=== PATIENT | female | born 1950 | race Caucasian/White ===

== ENCOUNTER 2022-10-31 09:25 | Outpatient (OUT) | payer MEDICARE, BC, SELFPAY ==
--- NOTE | 2022-10-31 09:53 | PM.CN ---
Consult Note: HPI Data of Consult Patient: known to practice within the last 3 years Consult date: 10/31/22 Requesting Physician: SHANE FINNEY NP Primary Care Provider: Familia Stanley MD Consult Narrative Reason for consult: right knee Narrative: She is here for f/u of gel one injection to right knee done 10/15/22. She had 70% relief of pain with increased fx continued through today. She is pleased dwith the significant results. No other concerns. She uses OTC gel to knees with relief also. No new sensorimotor sx or new bowel or bladder issues. cc:: CC: SHANE FINNEY NP Review of Systems ROS Status of ROS 10 or more systems reviewed and unremarkable except as noted in history and below Musculoskeletal Reports: extremity pain Exam Constitutional Documenting provider has reviewed patient's vital signs: yes Common normals: no apparent distress, average body habitus, oriented x3, no limitations, healthy appearing, alert and well nourished General appearance: cooperative and well developed Orientation/consciousness: Yes awake, Yes oriented to person, Yes oriented to place and Yes oriented to time HENMT Common normals: normocephalic, nasal mucous membranes and turbinates normal and moist oral mucous membranes Respiratory Common normals: normal respiratory effort, no retractions and no use of accessory muscles Effort & inspection: able to speak in complete sentences and symmetric chest movement Extremity Common normals: normal capillary refill and no pedal edema Right lower extremity: knee joint Right knee: inspection (swelling to right knee, pain crepitus with ROM . Muscle strength 5/5 bilat ) Assessment and Plan Assessment and Plan (1) Knee osteoarthritis: Plan F/U PRN, voltaren gel OTC as directed
== END 2022-10-31 09:26 ==
LOC: PM 09:26
PROVIDERS: PCP Family Medicine; Visit Provider Nurse Practitioner
DX: M17.11 Unilateral primary osteoarthritis, right knee (principal)
CPT/HCPCS: G0463

== ENCOUNTER 2022-12-02 09:30 | Outpatient (OUT) | payer MEDICARE, BC, SELFPAY ==
[2022-12-02 10:39] LABS: Estimated Average Glucose 108 mg/dL; Glycohemoglobin A1C 5.4 % (4.5-6.2)
[2022-12-02 11:16] LABS: Free T3 2.72 pg/mL (2.18-3.98); Thyroid Stimulating Hormone 1.175 uIU/mL (0.358-3.740)
== END 2022-12-02 09:31 | disposition home or self-care (01) ==
LOC: LAB 09:33
PROVIDERS: PCP Family Medicine; Visit Provider Family Medicine
DX: R53.83 Other fatigue (principal)
CPT/HCPCS: 36415; 83036; 84436; 84443; 84481

== ENCOUNTER 2022-12-10 14:51 | Outpatient (OUT) | payer MEDICARE, BC, SELFPAY ==
--- NOTE | 2022-10-28 11:44 | XR_ITS ---
The [address] [address] Patient Name: HECTOR CHAVEZ MRN: [id number] date: 1950 Sex: F Assigned Patient Location: [facility] Current Patient Location: [facility] Accession/Order Number: [id number] Exam Date: 10/28/2022 11:50 Report Date: 10/28/2022 15:45 At the request of: ZENY SIMS Procedure: XR thoracic spine 2V EXAMINATION: XR thoracic spine 2V HISTORY: Dorsalgia M54.9 ; chronic thoracic back pain; no known injury COMPARISON: No relevant comparison available. FINDINGS: BONES: No significant spondylosis, scoliosis, fracture, or visible bony lesion. DISC SPACES: Multilevel mild degenerative disc disease and anterior endplate osteophytes. PARASPINOUS: Negative. No paraspinous abnormality is seen. OTHER: Negative. IMPRESSION: 1. Multilevel mild degenerative changes of the thoracic spine. 2. No appreciable acute or suspicious abnormality. Electronically authenticated by: NEPTALI GOODE Date: 10/28/2022 15:45
== END 2022-12-10 14:52 | disposition home or self-care (01) ==
LOC: RAD 14:51
PROVIDERS: PCP Family Medicine; Visit Provider Family Medicine
DX: M54.9 Dorsalgia, unspecified (principal)
CPT/HCPCS: 72070

== ENCOUNTER 2023-01-28 11:21 | Outpatient (OUT) | payer MEDICARE, BC, SELFPAY ==
--- NOTE | 2023-01-28 | XR_ITS ---
The [address] [address] Patient Name: HECTOR CHAVEZ MRN: [id number] date: 1950 Sex: F Assigned Patient Location: [facility] Current Patient Location: [facility] Accession/Order Number: [id number] Exam Date: 01/28/2023 14:14 Report Date: 01/28/2023 14:52 At the request of: CRISTIAN ROBERTO Procedure: XR foot LT min 3V PROCEDURE: XR foot LT min 3V DATE: 01/28/2023 1:14 PM CDT COMPARISONS: None CLINICAL INDICATION: LEFT FOOT PAIN FINDINGS: There is no evidence of fractures or other acute osseous abnormalities. There is deformity of the proximal third of the fifth metatarsal likely related to old healed fracture. There is mild first metatarsal phalangeal degenerative change. There is mild midfoot degenerative changes. There is moderate-sized spur off the posterior inferior os calcis. There is moderate size spurring off the posterior os calcis at the attachment of the Achilles. Surgical clips overlie the anterior and medial ankle. XR/XR foot LT min 3V IMPRESSION: Findings as discussed above. Spurring off of the os calcis. No acute osseous abnormalities identified. Electronically authenticated by: MANINDER MARIA Date: 01/28/2023 14:52
== END 2023-01-28 11:22 | disposition home or self-care (01) ==
LOC: RAD 11:24
PROVIDERS: PCP Family Medicine; Visit Provider Physician Assistant
DX: M77.41 Metatarsalgia, right foot (principal)
CPT/HCPCS: 73630

== ENCOUNTER 2023-02-06 09:41 | Outpatient (OUT) | payer MEDICARE, BC, SELFPAY ==
--- NOTE | 2023-02-06 09:56 | PM.CN ---
Consult Note: HPI Data of Consult Patient: known to practice within the last 3 years Requesting Physician: Flori Ott NP Primary Care Provider: Familia Stanley MD Consult Narrative Reason for consult: f/u Narrative: Kay evans pleasant 72 year old female presents to office for evaluation of chronic left knee pain. Today rating pain 2/10 which increased with weight bearing and activity. Has previously benefitted to injections in right knee and would like to discuss this. cc:: CC: Flori Ott NP Review of Systems ROS Status of ROS 10 or more systems reviewed and unremarkable except as noted in history and below Musculoskeletal Reports: joint pain (bilateral knees) Meds Home Medications and Allergies Home Medications Medication Instructions Recorded Confirmed Type alendronate 70 mg tablet (Fosamax) 70 mg PO QWEEK 10/31/22 10/31/22 History amitriptyline 75 mg tablet 75 mg PO DAILY 10/31/22 10/31/22 History calcium carbonate 600 mg calcium 600 mg PO BID 10/31/22 10/31/22 History (1,500 mg) tablet (Calcium) diclofenac sodium 1 % topical gel 2 g topical BID PRN pain 10/31/22 10/31/22 History (Arthritis Pain (diclofenac)) lisinopril 5 mg tablet 5 mg PO DAILY 10/31/22 10/31/22 History metoprolol tartrate 50 mg tablet 50 mg PO BID 10/31/22 10/31/22 History multivitamin 1 tab PO DAILY 10/31/22 10/31/22 History simvastatin 20 mg tablet 20 mg PO DAILY 10/31/22 10/31/22 History spironolactone 25 mg tablet 25 mg PO DAILY 10/31/22 10/31/22 History Allergies Allergy/AdvReac Type Severity Reaction Status Date / Time No Known Drug Allergies Allergy Verified 10/31/22 13:21 Exam Constitutional Documenting provider has reviewed patient's vital signs: yes Common normals: no apparent distress, oriented x3, healthy appearing, alert and well nourished General appearance: cooperative HENMT Common normals: normocephalic, hearing grossly normal bilaterally and moist oral mucous membranes Head and scalp: normocephalic Eye Common normals: PERRL Pupil: PERRL Neck & C-Spine Common normals: full ROM General: normal visual inspection Chest Common normals: inspection of chest normal Respiratory Common normals: normal respiratory effort, no retractions and no use of accessory muscles Extremity Right lower extremity: knee joint Left lower extremity: knee joint Other: right and left knee enlarged diameter positive lateral stress testing and crepitus to bilateral knee pain worse on left knee than right no redness edema present Neuro Common normals: oriented x3, CN's II-XII intact bilaterally, moves all extremities, no focal motor deficits, no sensory deficits noted and deep tendon reflexes 2+ bilaterally Sensorium/orientation: alert Motor exam: strength 5/5 throughout and no movement abnormalities noted Psych Common normals: mental status grossly normal, thought process normal, cooperative, affect normal, speech normal and activity/motor behavior normal Speech: normal speech Thought process: normal thought process Results Additional Findings Additional findings: As part of providing excellent, safe, comprehensive care, the following was completed at our patient's visit 1. A medication reconciliation and review to ensure accurate knowledge of current/active medications, including asking our patients to inform us about any [id number] medications or herbal remedies/nutritional supplements/alternative remedies. 2. A review to specifically ensure our patients have had annual screening for: elevated body mass index (BMI), tobacco use, screening for depression, and screening for unhealthy alcohol use. When screening is concerning, patients are provided with education and the specific recommendation to discuss the concerning health issue and treatment options with their primary care provider. Assessment and Plan Assessment and Plan (1) Knee osteoarthritis: Assessment and Plan: We discussed the risks and benefits of the procedure with the patient, and we are NOT planning on using sedation as outlined in the guidelines from Medicare unless there is a documented reason that sedation would be strongly recommended.?? The procedure will be completed with fluoroscopic guidance.? (2) Left knee pain: Plan xray of left knee reveals degenerative changes gel 1 injection to left knee under fluoroscopy continue topical diclofenac to bilateral knees continue OTC acetaminophen continue HEP and stretching f/u after injection
== END 2023-02-06 09:42 | disposition home or self-care (01) ==
LOC: PM 09:42
PROVIDERS: PCP Family Medicine; Visit Provider Nurse Practitioner
DX: M25.562 Pain in left knee (principal); M17.9 Osteoarthritis of knee, unspecified
CPT/HCPCS: 73564; G0463

== ENCOUNTER 2023-02-06 10:18 | Outpatient (OUT) | payer MEDICARE, BC, SELFPAY ==
--- NOTE | 2023-02-06 10:28 | XR_ITS ---
The [address] [address] Patient Name: HECTOR CHAVEZ MRN: [id number] date: 1950 Sex: F Assigned Patient Location: [facility] Current Patient Location: [facility] Accession/Order Number: [id number] Exam Date: 02/06/2023 10:38 Report Date: 02/06/2023 11:31 At the request of: COY KNOTT Procedure: XR knee LT 4V EXAM: XR knee LT 4V HISTORY: Left knee pain COMPARISON: None. TECHNIQUE: 4 views FINDINGS: No acute fracture or dislocation. Mild degenerative changes of the knee joint. Mild soft tissue swelling. XR/XR knee LT 4V IMPRESSION: Mild degenerative changes as above. Electronically authenticated by: ISAI SUAREZ Date: 02/06/2023 11:31
== END 2023-02-06 10:19 | disposition home or self-care (01) ==
LOC: RAD 10:20
PROVIDERS: PCP Family Medicine; Visit Provider Nurse Practitioner
DX: M25.562 Pain in left knee (principal)
CPT/HCPCS: 73564

== ENCOUNTER 2023-02-11 13:35 | Outpatient (OUT) | payer MEDICARE, BC, SELFPAY ==
--- NOTE | 2023-02-11 | XR_ITS ---
The [address] [address] Patient Name: HECTOR CHAVEZ MRN: [id number] date: 1950 Sex: F Assigned Patient Location: [facility] Current Patient Location: Accession/Order Number: [id number] Exam Date: 02/11/2023 13:50 Report Date: 02/12/2023 08:30 At the request of: CRISTIAN ROBERTO Procedure: XR foot LT min 3V PROCEDURE: XR foot LT min 3V HISTORY: LEFT FOOT PAIN ; plantar heel pain COMPARISON: XR foot left 01/28/2023 FINDINGS: BONES:Stable degenerative enthesopathic spurring of the calcaneus. Old, healed/healing fifth metatarsal fracture. SOFT TISSUES:Multiple skin josee anterior and medial to the ankle. EFFUSION:None visible. OTHER: Negative. XR/XR foot LT min 3V IMPRESSION: 1. Stable degenerative enthesopathic spurring of the calcaneus; no new or acute findings. 2. Partially healed base of fifth metatarsal fracture; unchanged. Electronically authenticated by: NEPTALI GOODE Date: 02/12/2023 08:30
== END 2023-02-11 13:36 | disposition home or self-care (01) ==
LOC: RAD 13:35
PROVIDERS: PCP Family Medicine; Visit Provider Physician Assistant
DX: M79.672 Pain in left foot (principal)
CPT/HCPCS: 73630

== ENCOUNTER 2023-02-21 10:27 | Outpatient (OUT) | payer MEDICARE, BC, SELFPAY ==
[2023-02-21 13:03] LABS: Alanine Aminotransferase 45 U/L (14-59); Anion Gap 10.6; Aspartate Amino Transferase 34 U/L (15-37); BUN Creatinine Ratio 21.3; Calcium 9.7 mg/dL (8.5-10.1); Carbon Dioxide 31.8 mmol/L (21.0-32.0); Chloride 101 mmol/L (98-107); Estimated GFR (African America >60 (>=60); Estimated GFR (Non-African Ame >60 (>=60); Glucose 86 mg/dL (74-106); Potassium 4.4 mmol/L (3.5-5.1); Sodium 139 mmol/L (136-145); Triglycerides 69 mg/dL (<=150); VLDL CHOLESTEROL 13.8 mg/dL
[2023-02-21 13:04] LABS: Chol HDL Ratio 2.3; Cholesterol 155 mg/dL (<=200); HDL Cholesterol 68 mg/dL (40-60)
== END 2023-02-21 10:28 | disposition home or self-care (01) ==
LOC: LAB 10:30
PROVIDERS: PCP Family Medicine; Visit Provider Internal Medicine Cardiovascular Disease
DX: E78.5 Hyperlipidemia, unspecified (principal); I10 Essential (primary) hypertension; I47.1 Supraventricular tachycardia
CPT/HCPCS: 36415; 80048; 80061; 84450; 84460

== ENCOUNTER 2023-02-25 08:20 | Day surgery (SDC) | payer MEDICARE, BC, SELFPAY ==
[2023-02-25 08:38] VITALS: BP 132/79; PULSE 75; RESP 16; TEMP 35.9; O2SAT 98
[2023-02-25] MEDS: LIDOCAINE HCL 2% PF 100 MG/5 ML VIAL INJ (09:31)
[2023-02-25] MEDS: IOHEXOL 240 MG/ML - 10 ML VIAL INJ (09:31)
--- NOTE | 2023-02-25 10:03 | P.ON_ITS ---
Date of procedure: 02/25/23 Pre-op diagnosis: Left knee osteoarthritis Post-op diagnosis: same as pre-op Procedure: Procedure: Left knee joint injection using Gel One 3ml. Immediate complications none. Anesthesia: 2% lidocaine plain for skin wheal. After informed consent was obtained, patient brought to the OR placed in the supine position. Skin overlying the area was prepped and draped using Betadine. 25-gauge 1/2 inch needle was used for skin wheal over the medial aspect of the r ight knee joint identified under fluoroscopy. Omnipaque dye was used to confirm needle tip placement within the knee joint space 0.5 mL use of the injection. Subsequently 3ml of Gel One was injected into the space. No indication of intravascular or intraneuronal needle tip placement or injection was noted post procedure. The needle was removed, patient transferred to Recovery room in stable condition to discharged home after meeting criteria. Anesthesia: Local Surgeon: Vannesa Cummins Condition: stable
[2023-02-25 15:02] VITALS: BP 155/70; BP 168/72; PULSE 70; PULSE 72; RESP 16; RESP 18; O2SAT 92; O2SAT 97
== END 2023-02-25 09:40 | disposition home or self-care (01) ==
LOC: SURGOUT 08:22
PROVIDERS: PCP Family Medicine; Visit Provider Anesthesiology Pain Medicine
DX: M17.12 Unilateral primary osteoarthritis, left knee (principal)
CPT/HCPCS: 20610; 77002; J7326; Q9966

== ENCOUNTER 2023-03-13 09:11 | Outpatient (OUT) | payer MEDICARE, BC, SELFPAY ==
--- NOTE | 2023-03-13 09:45 | PM.CN ---
Consult Note: HPI Data of Consult Patient: known to practice within the last 3 years Requesting Physician: Flori Ott NP Primary Care Provider: Familia Stanley MD Consult Narrative Reason for consult: injection f/u Narrative: Kay evans pleasant 73 year old female presents for evaluation and management of chronic knee pain. Recently underwent a gel 1 injection to left knee with 75% pain relief ongoing, has noticed right knee pain is flaring up today 0/10 but often 5-6/10 with activity. Patient had a gel-1 injection to right knee in september. Would like to discuss repeating this injection as she does not want to have surgery or be evaluated by an orientation & mobility specialist at this time. cc:: CC: Flori Ott NP Review of Systems ROS Status of ROS 10 or more systems reviewed and unremarkable except as noted in history and below Musculoskeletal Reports: joint pain Meds Home Medications and Allergies Home Medications Medication Instructions Recorded Confirmed Type alendronate 70 mg tablet (Fosamax) 70 mg PO QWEEK 10/31/22 02/25/23 History amitriptyline 75 mg tablet 75 mg PO DAILY 10/31/22 02/25/23 History calcium carbonate 600 mg calcium 600 mg PO BID 10/31/22 02/25/23 History (1,500 mg) tablet (Calcium) diclofenac sodium 1 % topical gel 2 g topical BID PRN pain 10/31/22 02/25/23 History (Arthritis Pain (diclofenac)) lisinopril 5 mg tablet 5 mg PO DAILY 10/31/22 02/25/23 History metoprolol tartrate 50 mg tablet 50 mg PO BID 10/31/22 02/25/23 History multivitamin 1 tab PO DAILY 10/31/22 02/25/23 History simvastatin 20 mg tablet 20 mg PO DAILY 10/31/22 02/25/23 History spironolactone 25 mg tablet 25 mg PO DAILY 10/31/22 02/25/23 History Allergies Allergy/AdvReac Type Severity Reaction Status Date / Time No Known Drug Allergies Allergy Verified 02/25/23 08:37 Exam Constitutional Documenting provider has reviewed patient's vital signs: yes Common normals: no apparent distress, oriented x3, healthy appearing, alert and well nourished General appearance: cooperative HENMT Common normals: normocephalic, hearing grossly normal bilaterally and moist oral mucous membranes Head and scalp: normocephalic Eye Common normals: PERRL Pupil: PERRL Neck & C-Spine Common normals: full ROM General: normal visual inspection Chest Common normals: inspection of chest normal Respiratory Common normals: normal respiratory effort, no retractions and no use of accessory muscles Extremity Right lower extremity: knee joint Left lower extremity: knee joint Other: right and left knee enlarged diameter positive lateral stress testing and crepitus to bilateral knee no redness edema present Neuro Common normals: oriented x3, CN's II-XII intact bilaterally, moves all extremities, no focal motor deficits, no sensory deficits noted and deep tendon reflexes 2+ bilaterally Sensorium/orientation: alert Motor exam: strength 5/5 throughout and no movement abnormalities noted Psych Common normals: mental status grossly normal, thought process normal, cooperative, affect normal, speech normal and activity/motor behavior normal Speech: normal speech Thought process: normal thought process Results Additional Findings Additional findings: I have checked an [place] report on this patient today and there are no aberrancies noted in the prescribing history.?? A drug screen was completed and reviewed within the last year, and if there has not been a drug screen completed we ordered one today to monitor higher risk, state monitored pain medication use. As part of providing excellent, safe, comprehensive care, the following was completed at our patient's visit: 1. A medication reconciliation and review to ensure accurate knowledge of current/active medications, including asking our patients to inform us about any [id number] medications or herbal remedies/nutritional supplements/alternative remedies. 2. A review to specifically ensure our patients have had annual screening for: elevated body mass index (BMI), tobacco use, screening for depression, and screening for unhealthy alcohol use. When screening is concerning, patients are provided with education and the specific recommendation to discuss the concerning health issue and treatment options with their primary care provider. Assessment and Plan Assessment and Plan (1) Knee osteoarthritis: (2) Right knee pain: Plan repeat gel 1 to right knee, has provided great pain relief and patient wishes to avoid surgery f/u after injection
== END 2023-03-13 09:12 | disposition home or self-care (01) ==
LOC: PM 09:30
PROVIDERS: PCP Family Medicine; Visit Provider Nurse Practitioner
DX: M17.11 Unilateral primary osteoarthritis, right knee (principal); M25.561 Pain in right knee
CPT/HCPCS: G0463

== ENCOUNTER 2023-04-29 06:50 | Day surgery (SDC) | payer MEDICARE, BC, SELFPAY ==
[2023-04-29 07:20] VITALS: BP 172/93; PULSE 74; RESP 16; TEMP 36.3; O2SAT 100
[2023-04-29 08:08] VITALS: BP 157/75; BP 159/72; PULSE 72; PULSE 76; RESP 18; O2SAT 97
[2023-04-29] MEDS: IOHEXOL 240 MG/ML - 10 ML VIAL 12 MG INJ ×2 (08:17→08:48)
[2023-04-29] MEDS: LIDOCAINE HCL 2% PF 100 MG/5 ML VIAL 3 ML INJ (08:17)
[2023-04-29 08:44] VITALS: BP 162/73; PULSE 70; O2SAT 98
[2023-04-29] MEDS: HYALURONATE SODIUM, STABILIZED 60 MG/3 ML SYRINGE IU (08:46)
[2023-04-29 08:47] VITALS: BP 157/68; PULSE 70; O2SAT 95
[2023-04-29] MEDS: LIDOCAINE HCL 2% PF 100 MG/5 ML VIAL 2 ML INJ (08:49)
--- NOTE | 2023-04-29 15:59 | W.PM.PROCNOT ---
Date of procedure: 04/29/23 Pre-op diagnosis: Right knee osteoarthritis Post-op diagnosis: same as pre-op Procedure: Procedure: knee joint injection using Durolane 3ml. Immediate complications include initial order for gel-one to be injected. 50% of the solution was injected before failure of the syringe and procedure then completed using durolane upon availability from the pharmacy. Anesthesia: 2% lidocaine plain for skin wheal. After informed consent was obtained and patient placed in the supine position. Skin overlying the area was prepped and draped using Betadine. 25-gauge 1/2 inch needle was used for skin wheal over the medial aspect of the knee joint identified under fluoroscopy. Omnipaque dye was used to confirm needle tip placement within the knee joint space 0.5 mL use of the injection. Subsequently 3ml of durolane was injected into the space. No indication of intravascular or intraneuronal needle tip placement or injection was noted post procedure. The needle was removed, patient transferred to Recovery room in stable condition to discharged home after meeting criteria. Anesthesia: Local Surgeon: Vannesa Cummins Condition: stable
== END 2023-04-29 08:51 | disposition home or self-care (01) ==
PROVIDERS: PCP Family Medicine; Visit Provider Anesthesiology Pain Medicine
DX: M17.11 Unilateral primary osteoarthritis, right knee (principal)
CPT/HCPCS: 20610; 77002; J7318; J7326; Q9966

== ENCOUNTER 2023-05-22 09:20 | Outpatient (OUT) | payer MEDICARE, BC, SELFPAY ==
--- OUTSIDE RECORDS SUMMARY | 2023-05-22 09:24 | XMS_ITS | CCD ---
Author Name Unknown Address [address] [place] [address] Organization [facility] Care Team Providers Care Refresh Technician Name Role Phone GRZEGORZJENNIFER Unavailable Unavailab ZENY Guzmán Unavailable Unavailable Zeny Stanley Unavailable Unavailable Unavailable Zeny Stanley Primary Care Physician Dr. Bradly Tanner Referring Unavaila ezio Tanner, Dr. Abdullahi Attending Unavaila Zeny Agarwal Primary Care Unavailable SHARMIN ., SHANE Attending Unavailable HALALLI .SHANE Admitting Unavailable LIZETH ., DR MOURA Primary Care Unavailable LIZETH ., DR MOURA Primary Care Unavailable REMI ., NARWESLY Attending Toma vailable REMI ., JOSEFAATH Admitting Toma vailable MEME, DR ANANTH Danielson Consulting Unavailable RAY WEINSTEIN Attending Unavailable RAY WEINSTEIN Admitting Unavailable REQUEST, NONE LISTED Primary Care Unavaila RAY Sheriff Consulting Unavailable CRISTIAN ROBERTO Attending Unavailable RUPA, DR NEPTALI Eason Consulting Unavailable REQUEST, NONE LISTED Primary Care Unavaila ble CRISTIAN ROBERTO Admitting Unavailable CRISTIAN ROBERTO Consulting Unavailable CRISTIAN ROBERTO Attending Unavailable RUPA, DR NEPTALI Eason Consulting Unavailable REQUEST, NONE LISTED Primary Care Unavaila ble CRISTIAN ROBERTO Admitting Unavailable CRISTIAN ROBERTO Consulting Unavailable RAY WEINSTEIN Admitting Unavailable RAY WEINSTEIN Attending Unavailable REQUEST, NONE LISTED Primary Care Unavaila ezio VALENTINE, DR ANANTH Danielson Consulting Unavailable RAY WEINSTEIN Consulting Unavailable RAY WEINSTEIN Attending Unavailable RAY WEINSTEIN Admitting Unavailable REQUEST, NONE LISTED Primary Care Unavaila ble RUPA, DR NEPTALI Eason Consulting Unavailable RAY WEINSTEIN Consulting Unavailable CIRO, DR ABDULLAHI Consulting Unavailab le TRABOULSSI, DR ABDULLAHI Attending Unavailab le TRABOULSSI, DR ABDULLAHI Admitting Unavailab le REQUEST, DR NONE LISTED Primary Care Unavaila ble WEST, DR ANANTH Danielson Consulting Unavailable REQUEST, DR NONE LISTED Primary Care Unavaila ble PARDEEP, CRISTIAN Admitting Unavailable PARDEEP, CRISTIAN Attending Unavailable PARDEEP, CRISTIAN Consulting Unavailable PARDEEP, CRISTIAN Attending Unavailable YURIYEBRK, DR NEPTALI Eason Consulting Unavailable PARDEEP, CRISTIAN Admitting Unavailable REQUEST, NONE LISTED Primary Care Unavaila ble PARDEEP, CRISTIAN Consulting Unavailable LAKSHMIPATHY ., NARENDRANATH Admitting Toma vailable LAKSHMIPATHY ., NARENDRANATH Consulting Toma vailable LAKSHMIPATHY ., NARENDRANATH Attending Toma vailable MISC, DOCTOR Primary Care Unavailable Lizeth AUGUSTINE, Zeny Caballero Primary Care Provider [phone]( [phone] BRADLY TANNER Attending Unavailable ZENY STANLEY Primary Care Unavailable Huma Shannon Admitting Unavailable Huma Shannon Attending Unavailable Huma Shannon Referring Unavailable Federico FRANCIS Attending Unavailable Zeny Stanley Referring Unavailable Medications Current Medications Medication Drug Class(es) Dates Sig (Normalized) Sig (Original) alendronic acid 70 mg oral tablet (6 sources) Bisphosphonate Start: 06-16-2018 take 1 tablet by mouth every week Fosamax 70 mg oral tablet 70 mg = 1 tab(s), Oral, qWeek, Refills(s) 0, Prophylaxis Start Date: 06/16/18 Status: Ordered alendronate (Fos amax) 70 mg tablet Take 1 tablet (70 mg) by mouth every 7 days. 0 Active ALPRAZolam 0.25 mg oral tablet (5 sources) Benzodiazepine Start: 05-09-2023 take 1 tablet by mouth three times daily as needed for anxiety alprazolam 0.25 mg Tab 0.25 mg = 1 tab(s), Oral, TID, PRN as needed for anxiety, Refills(s) 0 Start Date: 05/09/23 Status: Ordered take 1 tablet by katja th three times daily as needed ALPRAZolam (Xanax) 0.25 mg tablet Take 1 tablet (0.25 mg) by mouth 3 times a day as needed. 0 Active amitriptyline hydrochloride 75 mg oral tablet (6 sources) Tricyclic Antidepressant Start: 06-17-2018 take 75 mg by mouth once daily at bedtime amitriptyline 75 mg, Oral, Once a day (at bedtime), Refills(s) 0, Anxiety Start Date: 06/17/18 Status: Ordered aspirin 81 mg delayed release oral tablet (2 sources) Platelet Aggregation Inhibitor, Nonsteroidal Anti-inflammatory Drug Start: 05-20-2023 take 1 tablet by mouth once daily aspirin 81 mg Oral EC Tab 81 mg = 1 tab(s), Oral, Daily, Refills(s) 0 Start Date: 05/20/23 Status: Ordered Start: 06-16-2018 take 81 mg by mouth once daily aspirin 81 mg, Oral, Daily, Refills(s) 0, Blood Thinner Start Date: 06/16/18 Status: Ordered Calcium (1 source) Phosphate Binder, Calcium Start: 06-16-2018 take 1250 mg by mouth once daily calcium calcium, 1,250 mg, Oral, Daily Start Date: 06/16/18 Status: Ordered calcium citrate 950 mg oral tablet (1 source) Start: 10-14-2019 take 1 mg by mouth twice daily calcium (as calcium citrate) 200 mg oral tablet mg tab(s), Oral, BID, Refills(s) 0 Start Date: 10/14/19 Status: Ordered Envive oral capsule (2 sources) Start: 07-24-2021 take 8 capsules by mouth once Envive oral capsule See Instructions, 8 cap(s), Refill(s) 0, samples given to patient (Rx), Per physician's instructions. Start Date: 07/24/21 Status: Ordered lisinopril 40 mg oral tablet (6 sources) Angiotensin Converting Enzyme Inhibitor Start: 05-09-2023 take 1 tablet by mouth once daily lisinopril 40 mg Tab 40 mg = 1 tab(s), Oral, Daily, Refills(s) 0 Start Date: 05/09/23 Status: Ordered Start: 11-16-2021 take 1 tablet by katja th once daily lisinopril 20 mg tablet Take 1 tablet (20 mg) by mouth once daily. 0 11/16/2021 Active Start: 06-17-2018 take 5 mg by mouth once daily lisinopril 5 mg, Oral, Daily, Refills(s) 0, High blood pressure Start Date: 06/17/18 Status: Ordered take 1 tablet by katja once daily Lisinopril 10 MG Oral Tablet TAKE 1 TABLET DAILY DIRECTED. Quantity: 0 Refills: 0 Ordered: 23-Feb-2021 DO Active MAGNESIUM GLUCONATE (1 source) Start: 10-14-2019 take 1 mg by mouth twice daily Mag-G mg, Oral, BID, Refills(s) 0 Start Date: 10/14/19 Status: Ordered magnesium oxide 400 mg oral tablet (5 sources) Start: 02-28-2023 take 2 tablets by mouth once daily magnesium oxide (Mag-Ox) 400 mg (241.3 mg magnesium) tablet Indications: Paroxysmal atrial tachycardia , Premature ventricular contractions Take 2 tablets (800 mg) by mouth once daily. 180 tablet 3 02/28/2023 Active End: 02-28-2023 take 2 tablets by mouth once daily magnesium oxide (Mag-Ox) 400 mg (241.3 mg magnesium) tablet Take 2 tablets (800 mg) by mouth once daily. 0 02/28/2023 Discontinued (Reorder) take 2 tablets by [facility] once daily Magnesium Oxide 400 MG Oral Tablet TAKE 2 TABLET Daily Quantity: 180 Refills: 3 Ordered: 01-Mar-2022 Ciro AUGUSTINE, Bradly Active metoprolol tartrate 50 mg oral tablet (8 sources) beta-Adrenergic Ismael Start: 05-09-2023 take 1 tablet by mouth twice daily Metoprolol tartrate 50 mg Tab 50 mg = 1 tab(s), Oral, BID, Refills(s) 0 Start Date: 05/09/23 Status: Ordered Start: 04-10-2021 take 2 tablets by [facility] once daily metoprolol succinate XL (Toprol-XL) 50 mg 24 hr tablet Take 2 tablets (100 mg) by mouth once daily. 0 04/10/2021 Active Start: 04-10-2021 take 2 tablets by [facility] once daily Metoprolol Succinate ER 50 MG Oral Tablet Extended Release 24 Hour take 2 tablets by mouth every day Quantity: 180 Refills: 3 Ordered: 10-Apr-2021 Ciro AUGUSTINE, Bradly Start : 10-Apr-2021 Active Start: 10-14-2019 take 1 mg by mouth once daily metoprolol 50 mg ER Tab mg tab(s), Oral, Daily, Refills(s) 0 Start Date: 10/14/19 Status: Ordered MiraLax 3350 Oral Pwdr for Recon 249 gram (2 sources) Start: 10-14-2019 MiraLax 3350 Oral Pwdr for Recon 249 gram 17 gram, Oral, Every other day, # 255 gram, Refills(s) 11, Pharmacy: [facility]/pharmacy #[id number], 165.1, cm, 10/14/19 13:03:00 EDT, Height/Length Measured, 83.7, kg, 10/14/19 13:03:00 EDT, Weight Measured Start Date: 10/14/19 Status: Ordered Multi Vitamin+ (2 sources) Start: 06-16-2018 take 1 tablet by mouth once daily Multi Vitamin+ 1 tab, Oral, Daily, Refill(s) 0, Prophylaxis Start Date: 06/16/18 Status: Ordered simvastatin 20 mg oral tablet (6 sources) HMG-CoA Reductase Inhibitor Start: 06-17-2018 take 20 mg by mouth once daily at bedtime simvastatin 20 mg, Oral, Once a day (at bedtime), Refills(s) 0, High cholesterol Start Date: 06/17/18 Status: Ordered spironolactone 25 mg oral tablet (6 sources) Aldosterone Antagonist Start: 05-09-2023 take 1 tablet by mouth once daily spironolactone 25 mg Tab 25 mg = 1 tab(s), Oral, Daily, Refills(s) 0 Start Date: 05/09/23 Status: Ordered Start: 02-28-2023 take 1 tablet by katja once daily spironolactone (Aldactone) 25 mg tablet Indications: Primary hypertension Take 1 tablet (25 mg) by mouth once daily. 90 tablet 3 02/28/2023 Active End: 02-28-2023 take 1 tablet by mouth once daily spironolactone (Aldactone) 25 mg tablet Take 1 tablet (25 mg) by mouth once daily. 0 02/28/2023 Discontinued (Reorder) Vitamin D (1 source) Start: 10-14-2019 Vitamin D Oral , Refills(s) 0 Start Date: 10/14/19 Status: Ordered Vitamin E (1 source) Start: 06-16-2018 vitamin E 100 International_Unit, Oral, Daily, Refills(s) 0, Prophylaxis Start Date: 06/16/18 Status: Ordered Problems Active Problems Problem Classification Problem Date Documented Da te Episodic/Chronic Cardiac dysrhythmias (14 sources) Ventricular premature beats; Translations: [Other premature beats] Onset: 2 02-28-2023 Chronic Cardiac dysrhythmias (8 sources) Palpitations; Translations: [Palpitations] Onset: 2 02-28-2023 Episodic Cataract (2 sources) Bilateral cataracts 10-14-2019 Chronic Disorders of lipid metabolism (12 sources) Hyperlipidemia; Translations: [Other and unspecified hyperlipidemia] Onset: 2 Chronic Essential hypertension (8 sources) Hypertensive disorder; Translations: [Unspecified essential hypertension] Onset: 3 10-14-2019 Chronic Fracture of lower limb (11 sources) Stress fracture, left foot, subsequent encounter for fracture with nonunion; Translations: [Displaced fracture of fifth metatarsal bone, left foot, subsequent encounter for fracture with routine healing] Onset: 2 Episodic Osteoarthritis (3 sources) Arthritis; Translations: [Unilateral primary osteoarthritis, right knee] Onset: 3 10-14-2019 Chronic Osteoporosis (1 source) Osteoporosis 05-09-2023 Chronic Other aftercare (1 source) Encounter for follow-up examination after completed treatment for conditions other than malignant neoplasm; Translations: [Encounter for follow-up examination after completed treatment for conditions other than malignant neoplasm] Onset: 8 Episodic Other gastrointestinal disorders (2 sources) Constipation 10-14-2019 Episodic Other nervous system disorders (1 source) Other chronic pain; Translations: [OTHER CHRONIC PAIN] Onset: 3 Chronic Other non-traumatic joint disorders (4 sources) Pain in right knee; Translations: [PAIN IN RIGHT KNEE] Onset: 3 Episodic Other nutritional; endocrine; and metabolic disorders (2 sources) Body mass index 30+ - obesity; Translations: [Body Mass Index 31.0-31.9, adult] 05-20-2023 Chronic Other nutritional; endocrine; and metabolic disorders (3 sources) Obesity; Translations: [Obesity, unspecified] 05-09-2023 Chronic Other nutritional; endocrine; and metabolic disorders (2 sources) Obese class I; Translations: [Obesity, unspecified] Onset: 3 02-28-2023 Chronic Other nutritional; endocrine; and metabolic disorders (2 sources) Obesity, unspecified; Translations: [Obesity, unspecified] Onset: 3 Chronic Other skin disorders (1 source) Scar conditions and fibrosis of skin; Translations: [Scar conditions and fibrosis of skin] Onset: 3 Episodic Other skin disorders (1 source) Scar 05-20-2023 Episodic Unclassified (2 sources) Patient encounter status 10-14-2019 Unclassified (1 source) Other supraventricular tachycardia; Translations: [Other supraventricular tachycardia] Onset: 3 Varicose veins of lower extremity (1 source) Venous varices 05-09-2023 Episodic Viral infection (4 sources) Measles; Translations: [Mumps] 10-14-2019 Episodic Past or Other Problems Problem Classification Problem Date Documented Date Episodic/Chronic Other connective tissue disease (4 sources) Pain in left foot; Translations: [PAIN IN LEFT FOOT] Onset: 01-22-2022 Episodic Unclassified (2 sources) Never smoked tobacco; Translations: [Never smoker] Unclassified (1 source) Onset: 02-28-2023 02-28-2023 Unclassified (1 source) Other supraventricular tachycardia; Translations: [Other supraventricular tachycardia] Onset: 02-28-2023 Results Test Name Value Interpretation Reference Range Facility Physician Referralon 023 Physician Referral [id number] Normal [place] Mamm Screen w/CAD if perf and 3D [place] 10-09-2022 MA Mamm Screen w/CAD if perf and 3D [place] Exam Date/Time: 10/08/2022 12:02 EDT Reason for Exam: Z. Report IMPRESSION: BIRADS 2 BENIGN FINDINGS, NORMAL INTERVAL FOLLOW-UP.12 MONTH RECALL. CLINICAL HISTORY: Z12.31. COMPARISON: 10/04/2021. COMMENT: Routine views and tomosynthesis views of both breasts were obtained. There are scattered areas of fibroglandular density. No dominant breast mass nor neoplastic calcifications are identified in either breast. There has been no significant change from the previous exam. The examination was reviewed with Computer Aided Detection. Breast Density: No Mammography is very important to your health. The current [employer] and National [employer] guidelines recommends annual mammography beginning at age 40. This facility utilizes a reminder system to ensure all patients receive reminder notifications at the appropriate time based on the recommendations of this exam. Board Certified Radiologists. Accredited by the ACR and FDA. Ordering Provider: Huma Shannon FINAL REPORT Dictated: 10/09/2022 2:54 pm Kenneth Zamora M.D. Signed (Electronic Signature): 10/09/2022 2:54 pm Signed by: Kenneth Zamora M.D. Transcribed by: DANIAL Technologist: CAPRI Assessment: BI-RADS Category 2-Benign finding Recommendation: Normal interval follow-up [facility] Consent for Treatmenton 09-23 Consent for Treatment [id number]:127 Normal [place] Physician Orderon 09-23-2022 Physician Order [id number]#[id number]:127 Normal [place] Office Visit (Cardiology)on 03-01-2022 Follow-up visit Diagnoses/Problems Assessed Palpitation (785.1) (R00.2) Premature ventricular contractions (427.69) (I49.3) Paroxysmal atrial tachycardia (427.0) (I47.1) Hyperlipidemia (272.4) (E78.5) Hypertension (401.9) (I10) Never smoker Class 1 obesity with body mass index (BMI) of 31.0 to 31.9 in adult (278.00,V85.31) (E66.9,Z68.31) Orders Class 1 obesity with body mass index (BMI) of 31.0 to 31.9 in adult Healthy Weight Tips; Status:Complete - Retrospective Authorization; Done: 01Mar2022 Some eating tips that can help you lose weight.; Status:Complete - Retrospective Authorization; Done: 01Mar2022 Hyperlipidemia ALT - Alanine Aminotransferase, Serum; Status:Active - Retrospective Authorization; Requested for:03Mar2023; AST; Status:Active - Retrospective Authorization; Requested for:03Mar2023; Lipid Panel; Status:Active - Retrospective Authorization; Requested for:03Mar2023; Hypertension, Paroxysmal atrial tachycardia Basic Metabolic Panel; Status:Active - Retrospective Authorization; Requested for:03Mar2023; IO EKG Electrocardiogram- 12 Lead; Status:Complete; Done: 01Mar2022 Hypertension, Premature ventricular contractions Renew: Spironolactone 25 MG Oral Tablet; TAKE 1 TABLET DAILY Paroxysmal atrial tachycardia Renew: Magnesium Oxide 400 MG Oral Tablet; TAKE 2 TABLET Daily Premature ventricular contractions Continue with our present treatment plan.; Status:Complete - Retrospective Authorization; Done: 01Mar2022 SocHx: Never smoker Tobacco Use Screening; Status:Complete; Done: 01Mar2022 Patient Instructions Please bring all medicines, vitamins, and herbal supplements with you when you come to the office. Prescriptions will not be filled unless you are compliant with your follow up appointments or have a follow up appointment scheduled as per instruction of your physician. Refills should be requested at the time of your visit. Follow up in 1 year. Chief Complaint HECTOR CHAVEZ is being seen for an annual follow-up of. History of Present Illness Patient is here for follow-up to management for previous evaluation for palpitation with documentation of isolated PVCs, hypertension, hyperlipidemia and obesity. Since last time I saw her she reports functional class I. She denies any complaint of chest pain, palpitation, lightheadedness, dizziness or syncope. I reviewed with her her home heart rate monitoring strips and no arrhythmia has been documented. Her recent laboratory data and a previous lab work were noted and reviewed with her. Assessment 1. Previous complaint of palpitation with documentation of both PACs and a brief episode of paroxysmal atrial tachycardia. None recently. Home monitoring failed to demonstrate any arrhythmia. Patient appears completely asymptomatic 2. Hypertension well controlled 3. Mild hypokalemia. Corrected 4. Hyperlipidemia on treatment and controlled 5. Mild obesity with mild weight gain 6. PVCs which I feel benign based on normal LV systolic function no cardiac symptoms at the moment and good exercise tolerance Plan 1. Continue current treatment 2. Continue to encourage the patient to lose weight and exercise 3. I advised the patient to continue to continue to use her Kardia monitor to keep an eye on her rhythm. 4. Patient was counseled regarding losing weight and exercise. And nonpharmacologic approach to hypertension and hyperlipidemia 5. Patient will notify me change in cardiac status or symptoms 6. I will see her back in 1 year plan to repeat her lab work Surgical History Problems History of Appendectomy History of Cataract surgery History of Hysterectomy History of Tonsillectomy History of Varicose vein ligation Current Meds Medication NameInstruction ALPRAZolam 0.25 MG Oral TabletTAKE 1 TABLET 3 TIMES DAILY NEEDED. Amitriptyline HCl - 75 MG Oral TabletTAKE 1 TABLET AT BEDTIME. Fosamax 70 MG Oral TabletTAKE 1 TABLET ONCE WEEKLY. Lisinopril 20 MG Oral TabletTAKE 1 TABLET BY MOUTH EVERY DAY Magnesium Oxide 400 MG Oral TabletTAKE 2 TABLET Daily Metoprolol Succinate ER 50 MG Oral Tablet Extended Release 24 Hourtake 2 tablets by mouth every day Spironolactone 25 MG Oral TabletTAKE 1 TABLET DAILY. Toprol XL 50 MG Oral Tablet Extended Release 24 HourTAKE 2 TABLETS DAILY. Zocor 20 MG Oral TabletTAKE 1 TABLET AT BEDTIME. Allergies Medication No Known Drug Allergies Recorded By: Mercedes Santacruz; 01/31/2021 2:29:43 PM Social History Problems Alcohol use (V49.89) (Z78.9) Caffeine use (V49.89) (Z78.9) Never smoker No illicit drug use Review of Systems Constitutional: not feeling tired. Cardiovascular: no intermittent leg claudication and as noted in HPI. Respiratory: no cough and no shortness of breath. Gastrointestinal: no change in bowel habits and no blood in stools. Integumentary: no skin rashes. Neurological: dizziness, but no seizures and no frequent falls. All other systems have been reviewed and are (more content not included)... Normal [place] Tobacco Screening.on 022 Adult depression screening assessment No [facility] [employer] DO Work Phone: Fall risk assessment a) No falls within the last year [facility] [employer] 250 DO Work Phone: Tobacco use status [facility]PH[facility] b) No [facility] [employer] 250 DO Work Phone: PROF CHEM 8 (BAS METB)on Anion gap [Moles/Vol] 11.4 mmol/L Normal [facility] Comment on above: Performed By: #### B MP #### [facility] [address] [address] [address] Octavio Price Calcium [Mass/Vol] 9.1 mg/dL Normal 8.5-10.1 [facility] Comment on above: Performed By: #### B MP #### [facility] [address] [address] [address] Octavio Price Chloride [Moles/Vol] 105 mmol/L Normal 98-107 [facility] Comment on above: Performed By: #### B MP #### [facility] [address] [place] [address] Dr. Octavio Price CO2 [Moles/Vol] 30.6 mmol/L Normal 21.0-32.0 [facility] Comment on above: Performed By: #### B MP #### [facility] [address] [place] [address] Dr. Octavio Price Creatinine [Mass/Vol] 0.75 mg/dL Normal 0.55-1.02 [facility] Comment on above: Performed By: #### B MP #### [facility] [address] [place] [address] Dr. Octavio Price EGFR-AF RWANDAN >60 Normal >=60 [facility] Comment on above: Performed By: #### B MP #### [facility] [address] [place] [address] Dr. Octavio Price EGFR-NON AF RWANDAN >60 Normal >=60 [facility] Comment on above: Performed By: #### B MP #### [facility] [address] [place] [address] Dr. Octavio Price Glucose [Mass/Vol] 84 mg/dL Normal 74-106 [facility] Comment on above: Performed By: #### B MP #### [facility] [address] [place] [address] Dr. Octavio Price Potassium [Moles/Vol] 4.0 mmol/L Normal 3.5-5.1 [facility] Comment on above: Performed By: #### B MP #### [facility] [address] [place], [place] [address] Dr. Octavio Price Sodium [Moles/Vol] 143 mmol/L Normal 136-145 [facility] Comment on above: Performed By: #### B MP #### [facility] [address] [place], [place] [address] Dr. Octavio Price Urea nitrogen [Mass/Vol] 13.0 mg/dL Normal 7.0-18.0 [facility] Comment on above: Performed By: #### B MP #### [facility] [address] [place], [place] [address] Dr. Octavio Price Urea nitrogen/Creatini ne [Mass ratio] 17.3 mg/mg Normal [facility] Comment on above: Performed By: #### B MP #### [facility] [address] [place], [place] [address] Dr. Octavio Price Tobacco Screening.on 021 Fall risk assessment a) No falls within the last year [facility] DO Work Phone: Heart Rate Normal [facility] DO Work Phone: Tobacco use status CP b) No [facility] 250 DO Work Phone: CREATININEon 06-01-2019 Creatinine [Mass/Vol] 0.75 mg/dL Normal 0.50 - 1.05 [facility] Comment on above: Performed By: #### C REAT #### [address] [address] Creatinine [Mass/Vol] mg/dL Normal >60 [facility] Comment on above: Performed By: #### C REAT #### [address] [address] Result Comment: CALC ULATIONS OF ESTIMATED GFR ARE PERFORMED USING THE MDRD STUDY EQUATION FOR THE IDMS-TRACEABLE CREATININE METHODS. CLIN CHEM 2007;53:766-72 ELECTROLYTE PANELon 06-01-19 20 Anion gap [Moles/Vol] 13 mmol/L Normal 10 - 20 [facility] Comment on above: Performed By: #### E LECT #### [address] [address] Chloride [Moles/Vol] 103 mmol/L Normal 98 - 107 [facility] Comment on above: Performed By: #### E LECT #### [address] [address] HCO3 (Bld) [Moles/Vol] 29 mmol/L Normal 21 - 32 [facility] Comment on above: Performed By: #### E LECT #### [address] [address] Potassium [Moles/Vol] 4.0 mmol/L Normal 3.5 - 5.3 [facility] Comment on above: Performed By: #### E LECT #### [address] [address] Sodium [Moles/Vol] 141 mmol/L Normal 136 - 145 [facility] Comment on above: Performed By: #### E LECT #### [address] [address] UREA NITROGENon 06-01-2019 Urea nitrogen [Mass/Vol] 19 mg/dL Normal 6 - 23 [facility] Comment on above: Performed By: #### U KRUPA #### [address] [address] CNOVon 02-27-2018 CNOV Office Visit (KLAUDIA) ESSIE CHAVEZ ([id number]) [address] [facility] Time Provider Dmomxnosoi11/5/18 10:30 AM JENNIFER LANTIGUA During your visit today, we recorded the following information about you: Pulse Respiration Blood pressure Weight 64/minute 18/minute 150/81 80.7 kg Height 1.651 Liz Lantigua MD 02/27/2018 10:54 AM [facility] Department of Cardiovascular MedicineOUTPATIENT VISIT DATE 02/27/18OUTPATIENT VISIT TYPEESTABLATRI[facility] CARE PHYSICIAN:Zeny Stanley MD[address] [facility] [place] [address]Cyozn: [phone]: [phone] COMPLAINT:Patient presents with:Established PatientHISTORY OF PRESENT ILLNESS:Hector Chavez is a 67 year old female with a past cardiac history ofessential hypertension, hypercholesterolemia and PVCs.02/27/2017The patient presents today for a 1 year follow-up. She has done well over thepast year. She states that she has had no significant palpitations over thepast year. She denies any chest discomfort or unusual shortness of breath.She denies any syncopal or near syncopal episodes. She did have a few verybrief episodes of lightheadedness which resolved quickly. She is toleratingall the medications. She does state that she has not had a lipid profile orliver function tests performed in several years. This needs to be done tomonitor her statin therapy.02/27/2018The patient presents today for a 1 year follow-up. The patient has beenfeeling well. She denies any chest pain, shortness of breath or dyspnea onexertion. She denies any palpitations, syncopal or near syncopal episodes.She denies any edema, orthopnea or paroxysmal nocturnal dyspnea. She doesstate that her systolic blood pressures have been higher during the afternoonand daytime hours. Her diastolic pressures have been borderline at timesduring the day also. She takes her carvedilol in the morning, lisinopril atlunch and the second carvedilol in the afternoon. She denies any excessivesodium intake. She is trying to stay active.PAST MEDICAL HISTORYDiagnosis Date- Anxiety- Asymptomatic varicose veins- HTN- Hypercholesteraemia- Macular puckering of retina- Osteoarthritis- PVCsPAST SURGICAL HISTORYProcedure Laterality Date- ENDOVENOUS LASER, 1ST VEIN R greater saphenous vein- EYE SURGERY HX macular pucker- TOTAL ABDOM HYSTERECTOMY Hysterectomy, TAHSocial HistorySubstance Use Topics- Smoking status: Never Smoker- Smokeless tobacco: Never Used- Alcohol use Yes Comment: occasionallyFAMILY HISTORYProblem Relation Age of Onset- other (hypotension [Other]) Mother- Hypertension Father- Heart Mother- Heart FatherALLERGIES:ALLERGIESN o Known AllergiesMEDICATIONS:lisin opril (ZESTRIL, PRINIVIL) 5 mg tablet TAKE 1 TABLET ONCE DAILYcarvedilol (COREG) 12.5 mg tablet TAKE 1 TABLET TWICE DAILY WITH MEALSAMITRIPTYLINE HCL (ELAVIL ORAL) Take 75 mg by mouth once daily.MULTIVIT ANDMINERALS/FERROUS FUM (MULTI VITAMIN ORAL) Take by mouth once daily.VITAMIN E ORAL Take by mouth once daily.GLUCOSAMINE HCL/CHONDR MURPHY A NA (OSTEO BI-FLEX ORAL) Take by mouth once daily.CALCIUM CARBONATE/VITAMIN D3 (VITAMIN D-3 ORAL) Take by mouth once daily.CALCIUM ORAL Take by mouth once daily.ASCORBIC ACID (VITAMIN C ORAL) Take by mouth as needed.ALPRAZolam (XANAX) 0.25 mg tablet Take 0.25 mg by mouth as needed.temazepam (RESTORIL) 15 mg cap 15 mg at bedtime as needed.aspirin, enteric coated (ASPIRIN, ENTERIC COATED) 81 mg EC tablet Take 81 mg bymouth once daily.REVIEW OF SYSTEMS:A complete review of systems was obtained and is remarkable for that notedabove. The remaining systems are unremarkable.I personally interviewed, confirmed and edited the above information ifobtained by others.PHYSICAL EXAMINATION:BP 150/81 Pulse 64 Resp 18 Ht 165.1 cm (5' 5 ) Wt 80.7 kg (178 lb) SpO2 98% BMI 29.62 kg/m?General: Well appearing, in no acute distress.Eyes: Conjunctiva normal, sclera normalNeck: No jugular venous distention, no palpable thyromegaly.Heart: Regular rhythm, S1, S2 normal, no S3, no S4. No murmur. No carotidbruits.Respiratory: Clear to auscultation bilaterally. Good respiratory effort.GI: Soft, nontender, bowel sounds normal, no palpable hepatosplenomegalyExtremit ies: Normal pulses in distal lower extremities. Absent lower extremityedemaNeuro: Alert, cooperative with no focal deficit.Psych: Pleasant and cooperative.Skin: No rashes or wounds.CARDIOVASCULAR MEDICINE TESTING:A 12-lead electrocardiogram obtained on February 27, 2017 reveals sinus rhythm at61 bpm. There is a first-degree AV block present. There are no other changesnoted.IMPRESSION:1. Essential hypertension, benign - ICD9: 401.1, ICD10: I10 (primarydiagnosis), fair control on current medical therapy. Suggested movinglisinopril dose to a.m.2. Pure hypercholesterolemia - ICD9: 272.0, ICD10: E78.00, currently onsimvastatin. Managed by primary care physician..3. PVC (premature ventricular contraction) - ICD9: 427.69, ICD10: I49.3, nocurrent symptoms of palpitations. There are no PVCs on her electrocardiogram.PLAN:Con karol current medical regimen. Change lisinopril dosing time to everymorning with first dose of carvedilol.Monitor blood pressure at home.Low-cholesterol, low-fat diet.Regular aerobic exercise.Patient will follow-up with primary care physician as this office is closing.She can follow-up with us as needed.A copy of this note will be provided to the requesting provider by [facility] or via U.S. Mail.This document was generated utilizing Krossoveration. I have reviewed andverified that the contents of the document are accurate with the exception ofminor grammatical, spelling and punctuation errors.CONTACT INFORMATION:Thank you for allowing us to participate in the care of this very pleasantpatient. Please free to contact us if we can be of any further assistance.Jennifer Lantigua MD, [facility] and [place] GeAlpartment of Cardiovascular MedicineShelby Memorial Hospitalrt and [facility] Institute[address], [place] [address]Qtvobh: [phone] Referring Provider: ZENY STANLEY [[id number]]Allergies As of Date: 02/27/2018(No Known Allergies)Date Reviewed: 02/27/2018Reviewed by: Jennifer Lantigua - Fully AssessedReason for Visit: Established Patient [175]Primary Visit Diagnosis:Essential hypertension, benign [I10] Other Visit Diagnoses:Pure hypercholesterolemia [E78.00] PVC (premature ventricular contraction) [I49.3]Prescriptions as of 02/27/2018 Sig: LISINOPRIL 5 MG TABLET TAKE 1 TABLET ONCE DAILY CARVEDILOL 12.5 MG TABLET TAKE 1 TABLET TWICE DAILY WI* ELAVIL ORAL Take 75 mg by mouth once jacqueline* MULTI VITAMIN ORAL Take by mouth once daily. VITAMIN E ORAL Take by mouth once daily. OSTEO BI-FLEX ORAL Take by mouth once daily. VITAMIN D-3 ORAL Take by mouth once daily. CALCIUM ORAL Take by mouth once daily. VITAMIN C ORAL Take by mouth as needed. ALPRAZOLAM 0.25 MG TABLET Take 0.25 mg by mouth as need* TEMAZEPAM 15 MG CAPSULE 15 mg at bedtime as needed. ASPIRIN 81 MG TABLET,DELAYED * Take 81 mg by mouth once jacqueline*Problem List As Of Date 02/27/2018 Noted Resolved Pure hypercholesterolemia [E78.00] Chest pain [R07.9] Premature beats, unspecified [I49.49] Essential hypertension, benign [I10] Hypertension with goal blood pressure less than*INVALID FOR* PVC (premature ventricular contraction) [I49.3] INVALID FOR* Status:Closed by DYANA LANTIGUA MD on 02/27/18 Normal [facility] PROGRESSon 02-27-2018 Protein mass conc HNO ID: [id number] thor: Jennifer Hoganervice: (none)Author Type: PhysicianType: Progress NotesFiled: 02/27/2018 10:54 AMNote Text:[facility] Department of Cardiovascular MedicineOUTPATIENT VISIT DATE 02/27/18OUTPATIENT VISIT TYPEESTABLATRIUM [facility]ALTH [facility]PRNOV[facility] PHYSICIAN:Zeny Stanley MD[address] [facility] [address]Vsbck: [phone]: [phone] COMPLAINT:Patient presents with:Established PatientHISTORY OF PRESENT ILLNESS:Hector Chavez is a 67 year old female with a past cardiac historyof essential hypertension, hypercholesterolemia and PVCs.02/27/2017The patient presents today for a 1 year follow-up. She has done well overthe past year. She states that she has had no significant palpitationsover the past year. She denies any chest discomfort or unusual shortnessof breath. She denies any syncopal or near syncopal episodes. She didhave a few very brief episodes of lightheadedness which resolved quickly.She is tolerating all the medications. She does state that she has nothad a lipid profile or liver function tests performed in several years.This needs to be done to monitor her statin therapy.02/27/2018The patient presents today for a 1 year follow-up. The patient has beenfeeling well. She denies any chest pain, shortness of breath or dyspneaon exertion. She denies any palpitations, syncopal or near syncopalepisodes. She denies any edema, orthopnea or paroxysmal nocturnaldyspnea. She does state that her systolic blood pressures have beenhigher during the afternoon and daytime hours. Her diastolic pressureshave been borderline at times during the day also. She takes hercarvedilol in the morning, lisinopril at lunch and the second carvedilolin the afternoon. She denies any excessive sodium intake. She is tryingto stay active.PAST MEDICAL HISTORYDiagnosis Date- Anxiety- Asymptomatic varicose veins- HTN- Hypercholesteraemia- Macular puckering of retina- Osteoarthritis- PVCsPAST SURGICAL HISTORYProcedure Laterality Date- ENDOVENOUS LASER, 1ST VEIN R greater saphenous vein- EYE SURGERY HX macular pucker- TOTAL ABDOM HYSTERECTOMY Hysterectomy, TAHSocial HistorySubstance Use Topics- Smoking status: Never Smoker- Smokeless tobacco: Never Used- Alcohol use Yes Comment: occasionallyFAMILY HISTORYProblem Relation Age of Onset- other (hypotension [Other]) Mother- Hypertension Father- Heart Mother- Heart FatherALLERGIES:ALLERGIESN o Known AllergiesMEDICATIONS:lisin opril (ZESTRIL, PRINIVIL) 5 mg tablet TAKE 1 TABLET ONCE DAILYcarvedilol (COREG) 12.5 mg tablet TAKE 1 TABLET TWICE DAILY WITH MEALSAMITRIPTYLINE HCL (ELAVIL ORAL) Take 75 mg by mouth once daily.MULTIVIT ANDMINERALS/FERROUS FUM (MULTI VITAMIN ORAL) Take by mouth oncedaily.VITAMIN E ORAL Take by mouth once daily.GLUCOSAMINE HCL/CHONDR MURPHY A NA (OSTEO BI-FLEX ORAL) Take by mouth oncedaily.CALCIUM CARBONATE/VITAMIN D3 (VITAMIN D-3 ORAL) Take by mouth once daily.CALCIUM ORAL Take by mouth once daily.ASCORBIC ACID (VITAMIN C ORAL) Take by mouth as needed.ALPRAZolam (XANAX) 0.25 mg tablet Take 0.25 mg by mouth as needed.temazepam (RESTORIL) 15 mg cap 15 mg at bedtime as needed.aspirin, enteric coated (ASPIRIN, ENTERIC COATED) 81 mg EC tablet Take 81mg by mouth once daily.REVIEW OF SYSTEMS:A complete review of systems was obtained and is remarkable for that notedabove. The remaining systems are unremarkable.I personally interviewed, confirmed and edited the above information ifobtained by others.PHYSICAL EXAMINATION:BP 150/81 Pulse 64 Resp 18 Ht 165.1 cm (5' 5 ) Wt 80.7 kg (178lb) SpO2 98% BMI 29.62 kg/m?General: Well appearing, in no acute distress.Eyes: Conjunctiva normal, sclera normalNeck: No jugular venous distention, no palpable thyromegaly.Heart: Regular rhythm, S1, S2 normal, no S3, no S4. No murmur. No carotidbruits.Respiratory: Clear to auscultation bilaterally. Good respiratory effort.GI: Soft, nontender, bowel sounds normal, no palpable hepatosplenomegalyExtremit ies: Normal pulses in distal lower extremities. Absent lowerextremity edemaNeuro: Alert, cooperative with no focal deficit.Psych: Pleasant and cooperative.Skin: No rashes or wounds.CARDIOVASCULAR MEDICINE TESTING:A 12-lead electrocardiogram obtained on February 27, 2017 reveals sinusrhythm at 61 bpm. There is a first-degree AV block present. There are noother changes noted.IMPRESSION:1. Essential hypertension, benign - ICD9: 401.1, ICD10: I10 (primarydiagnosis), fair control on current medical therapy. Suggested movinglisinopril dose to a.m.2. Pure hypercholesterolemia - ICD9: 272.0, ICD10: E78.00, currently onsimvastatin. Managed by primary care physician..3. PVC (premature ventricular contraction) - ICD9: 427.69, ICD10: I49.3,no current symptoms of palpitations. There are no PVCs on herelectrocardiogram.PLAN: Continue current medical regimen. Change lisinopril dosing time to everymorning with first dose of carvedilol.Monitor blood pressure at home.Low-cholesterol, low-fat diet.Regular aerobic exercise.Patient will follow-up with primary care physician as this office isclosing. She can follow-up with us as needed.A copy of this note will be provided to the requesting provider by way [facility] or via U.S. Mail.This document was generated utilizing Zyncro dictation. I have reviewedand verified that the contents of the document are accurate with theexception of minor grammatical, spelling and punctuation errors.CONTACT INFORMATION:Thank you for allowing us to participate in the care of this very pleasantpatient. Please free to contact us if we can be of any furtherassistance.Jennifer Lantigua MD, [facility]ITALCR[facility] and [place] GeAlpartment of Cardiovascular MedicineShelby Memorial Hospitalrt and Vascular Institute[address] [address]Zlbjfo: [phone] Normal [facility] Vital Signs Date Time Vital Sign Value Performing Clinician Facility 05-20-2023 15:09-0500 Blood Pressure Location Federico FRANCIS [facility] 05-20-2023 15:09-0500 Diastolic blood pressure 78 mm[Hg] Federico MCINTOSHL [facility] 05-20-2023 15:09-0500 Heart rate 72 /min Federico MCINTOSHL [facility] 05-20-2023 15:09-0500 Respiratory rate 16 /min Federico FRANCIS [facility] 05-20-2023 15:09-0500 Systolic blood pressure 128 mm[Hg] Federico FRANCIS [facility] 02-28-2023 09:40-0400 Body height 165.1 cm Bradly Tanner MD Work Phone: [facility] 02-28-2023 09:40-0400 Body mass index (BMI) [Ratio] 31.85 kg/m2 Bradly Tanner MD Work Phone: [facility] 02-28-2023 09:40-0400 Body weight 86.82 kg Bradly Tanner MD Work Phone: [facility] 02-28-2023 09:40-0400 Diastolic blood pressure 70 mm[Hg] Bradly Tanner MD Work Phone: [facility] 02-28-2023 09:40-0400 Heart rate 72 /min Bradly Tanner MD Work Phone: [facility] 02-28-2023 09:40-0400 Systolic blood pressure 120 mm[Hg] Bradly Tanner MD Work Phone: [facility] 03-01-2022 09:41-0400 Body height 165.1 cm Zeny M Hoy Work Phone: [facility] DO Work Phone: 03-01-2022 09:41-0400 Body mass index (BMI) [Ratio] 31.78 kg/m2 Zeny M Hoy Work Phone: [facility] DO Work Phone: 03-01-2022 09:41-0400 Body surface area Derived from formula 1.94 m2 Zeny M Hoy Work Phone: [facility] DO Work Phone: 03-01-2022 09:41-0400 Body weight 86.64 kg Zeny M Hoy Work Phone: [facility] [address] DO Work Phone: 03-01-2022 09:41-0400 Diastolic blood pressure 80 mm[Hg] Zeny M Hoy Work Phone: [facility] DO Work Phone: 03-01-2022 09:41-0400 Heart rate 69 /min Zeny M Hoy Work Phone: [facility] DO Work Phone: 03-01-2022 09:41-0400 Systolic blood pressure 130 mm[Hg] Zeny M Hoy Work Phone: [facility] DO Work Phone: 02-23-2021 09:42-0400 Body height 165.1 cm Zeny M Hoy Work Phone: [facility] DO Work Phone: 02-23-2021 09:42-0400 Body mass index (BMI) [Ratio] 31.62 kg/m2 Zeny M Hoy Work Phone: [facility] DO Work Phone: 02-23-2021 09:42-0400 Body surface area Derived from formula 1.94 m2 Zeny M Hoy Work Phone: [facility] DO Work Phone: 02-23-2021 09:42-0400 Body weight 86.18 kg Zeny M Hoy Work Phone: [facility] DO Work Phone: 02-23-2021 09:42-0400 Diastolic blood pressure 82 mm[Hg] Zeny M Hoy Work Phone: [facility] DO Work Phone: 02-23-2021 09:42-0400 Heart rate 62 /min Zeny M Hoy Work Phone: [facility] DO Work Phone: 02-23-2021 09:42-0400 Systolic blood pressure 126 mm[Hg] Zeny M Hoy Work Phone: [facility] DO Work Phone: Encounters Encounter Date Encounter Type Care Provider Facility Start: 05-20-2023 [facility] Federico FRANCIS Facility : [facility] Start: 05-20-2023 End: 05-20-2023 Patient encounter procedure Federico Eason [facility] Start: 05-05-2023 ambulatory Huma Shannon Facility:[facility] Start: 02-28-2023 End: 02-28-2023 ambulatory TNROSA ISELA TANNER [facility] Start: 02-28-2023 End: 02-28-2023 Office outpatient visit 15 minutes Bradly Tanner MD Work Phone: [facility] Comment on above: Palpitation (Primary Dx); Paroxysmal atrial tachycardia; Premature ventricular contractions; Class 1 obesity; Primary hypertension; Hyperlipidemia, unspecified hyperlipidemia type Start: 10-31-2022 ambulatory SHANE FINNEY . Facili ty:[facility] Start: 10-15-[address] ZENY STANLEY . Facili ty:[facility] Start: 10-08-2022 End: 10-09-2022 ambulatory Huma Shannon [facility] Start: 10-01-2022 End: 10-02-2022 ambulatory ANA KHALIL . Facility:[facility] Start: 07-31-2022 End: 08-01-2022 ambulatory RAY WEINSTEIN Facility:[facility] Start: 03-20-2022 End: 03-21-2022 [facility] Start: 03-08-2022 Rx Renewal [facility] Work Phone: Start: 03-01-[address] Bradly Tanner Facility: Start: 03-01-2022 Office outpatient vi sit 15 minutes [facility] Stanley [facility] Work [facility]: Start: 02-19-2022 End: 02-20-[address] ANANTH VALENTINE Facility:[facility] Start: 02-04-2022 End: 02-05-[address] BRADLY TANNER Facility:[facility] Start: 01-22-2022 End: 01-23-2022 ambulatory CRISTIAN ROBERTO Facility:[facility] Start: 01-02-2022 End: 01-03-[address] ANANTH VALENTINE Facility:[facility] Start: 12-27-2021 End: 12-28-2021 ambulatory CRISTIAN ROBERTO Facility:[facility] Start: 11-29-2021 End: 11-30-2021 ambulatory CRISTIAN ROBERTO Facility:[facility] Start: 10-04-2021 End: 10-04-2021 Patient encounter procedure Huma J Shiva [facility] Start: 02-23-2021 Patient encounter procedure Zeny M Hoy Work Phone: [facility] DO Work Phone: Start: 02-27-2018 End: 03-13-2018 Patient encounter JENNIFER LANTIGUA [facility] Procedures Date Procedure Procedure Detail Performing Clinician Start: 06-05-2016 Excision of lesion of skin Federico FRANCIS Comment on above: left ear Appendectomy Zeny M Hoy Work Phone: Cataract surgery Zeny M H oy Work Phone: Dilation and curettage Teres a Shiva Extraction of cataract Nirav mushtaq FRANCIS Hysterectomy Zeny M Hoy Work Phone: Hysterectomy Huma Shiva Ligation of varicose vein Do uglas M Hoy Work Phone: Stripping of vein Huma العلي pe Tonsillectomy Zeny M Hoy Work Phone: Tonsillectomy Huma Shiva Total abdominal hysterectomy with bilateral salpingo-oophorectomy Federico FRANCIS Plan of Treatment Date Care Activity Detail Author Start: 08-13-2024 Screening for malign ant neoplasm of [facility] Start: 03-19-2024 End: 03-19-2024 Patient encounter procedure 03/19/2024 10:20 AM EDT Office Visit [facility] [address] [place] [phone] Bradly Tanner MD [address] [place] [address] [facility] Start: 02-28-2023 FUV, Provider: Bradly aTnner, Status: Pen, Time: 9:20 AM FUV, Provider: Bradly Tanner, Status: Pen, Time: 9:20 AM [facility] 250 DO Work Phone: Start: 01-24-2023 Influenza vaccination Influenz a Vaccine (#1) [facility] Start: 07-12-2022 Screening for osteoporosis Bone Density Scan [facility] Start: 04-22-2022 COVID-19 Vaccine (4 - Pfizer series) COVID-19 Vaccine (4 - Pfizer series) [facility] Start: 03-01-2022 FUV, Provider: Bradly Tanner, Status: Pen, Time: 9:30 AM FUV, Provider: Bradly Tanner, Status: Pen, Time: 9:30 AM [facility] 250 DO Work Phone: Start: 1990 Screening for malign ant neoplasm of breast Mammogram [facility] Start: 02-27-1972 DTaP/Tdap/Td Vaccine s (1 - Tdap) DTaP/Tdap/Td Vaccines (1 - Tdap) [facility] Start: 02-27-1968 Diabetes mellitus screening Diabetes Screening [facility] Start: 02-27-1968 Hepatitis C screening Hepatitis C Sc [facility] Start: 1950 Lipid panel Lipid Panel [facility] Start: 1950 Screening for malign ant neoplasm of colon [facility] Start: 1950 Yearly Adult Physical Yearly Adult P hysical [facility] Immunizations Immunization Date Immunization Notes Care Provider Fa dotty 03-26-2023 influenza virus vaccine, unspecified formulation Federico FRANCIS [facility] 03-26-2022 Flu vaccine, quadrivalent, high-dose, preservative free, age 65y+ (FLUZONE) Bradly Tanner MD Work Phone: [facility] Work Phone: 03-26-2022 influenza virus vaccine, unspecified formulation Bradly Tanner MD Work Phone: [facility] Work Phone: 02-25-2022 Pfizer COVID-19 Vac Bivalent 30 MCG/0.3ML Intramuscular Suspension Zeny Stanley Work Phone: -[facility] 250 DO Work Phone: Comment on above: Series: 05-11-2021 SARS-CoV-2 (COVID-19 ) mRNA BNT-162b2 vax Federico FRANCIS [facility] 03-19-2021 Influenza, Seasonal, Quadrivalent, Adjuvanted Bradly Tanner MD Work Phone: [facility] Work Phone: 08-04-2020 zoster vaccine recombinant Bradly Tanner MD Work Phone: [facility] Work Phone: 07-19-2020 SARS-CoV-2 (COVID-19 ) mRNA BNT-162b2 vax Federico FRANCIS [facility] Comment on above: Result Comment: 2022: [id number] 06-28-2020 SARS-CoV-2 (COVID-19 ) mRNA BNT-162b2 vax Federico FRANCIS [facility] Comment on above: Result Comment: 2022: [id number] 04-11-2020 zoster vaccine recombinant Bradly Tanner MD Work Phone: [facility] Work Phone: 04-21-2019 pneumococcal polysaccharide vaccine, 23 valent Bradly Tanner MD Work Phone: [facility] Work Phone: 03-26-2019 influenza virus vaccine, unspecified formulation Zeny Stanley Work Phone: [facility] 250 DO Work Phone: 03-09-2019 influenza, high dose seasonal, preservative-free Bradly Tanner MD Work Phone: [facility] Work Phone: 08-13-2018 pneumococcal polysaccharide vaccine, 23 valbobby Tanner MD Work Phone: [facility] Work Phone: 05-26-2018 pneumococcal conjuga te vaccine, 13 valent Zeny Stanley Work Phone: [place] [address] DO Work Phone: 04-08-2018 influenza, injectabl e, quadrivalent, preservative free Bradly Tanner MD Work Phone: [facility] Work Phone: 05-26-2017 pneumococcal polysaccharide vaccine, 23 valent Zeny Stanley Work Phone: [place] [address] DO Work Phone: 04-04-2015 influenza, seasonal, injectable, preservative free Bradly Tanner MD Work Phone: [facility] Work Phone: 04-01-2014 influenza, injectabl e, quadrivalent, contains preservative Bradly Tanner MD Work Phone: [facility] Work Phone: 03-19-2013 influenza, seasonal, injectable Bradly Tanner MD Work Phone: [facility] Work Phone: Payers Date Payer Category Payer Unknown 2015 Medicare MEDICARE MEDICAR E PART A AND B [id number] 2015-Present [address] [place] [address] [id number] 1959 Medicare [id number] 1959 Unknown [id number] 1950 Unknown [id number] 1950 Unknown [id number] 1950 Unknown [id number] 1950 Unknown [id number] 1950 Unknown [id number] 1950 Unknown [id number] 1950 Unknown [id number] 1950 Unknown [id number] 1950 Unknown [id number] 1950 Unknown [id number] 1950 Unknown [id number] 1950 Unknown [id number] 1950 Unknown [id number] 1950 Unknown [id number] 1950 Unknown [id number] Social History Date Type Detail Facility Start: 02-28-2023 Alcohol use Alcohol use [facility] DO Work Phone: Start: 07-23-2021 End: 05-20-2023 Tobacco smoking status Never smoked tobacco (finding) [facility] Tobacco smoking status Never [facility] Start: 02-28-2023 Sex Assigned At Female F [facility] Start: 02-28-2023 Tobacco use and exposure Smokeless tobacco non-user [facility] Work Phone: Start: 02-28-2023 Alcohol intake Ex-drinker (finding) [facility] Work Phone: Start: 1950 Sex Assigned At Not on file [facility] Work Phone: Start: 02-18-2023 End: 02-28-2023 Exposure to SARS-CoV-2 (event) Not sure [facility] Functional Status Date Assessment Result Facility 05-20-2023 Functional Status N/A [facility] Clinical Notes 11-30-2021 to 02-28-2023 Bradly Tanner MD - 02/28/2023 9:20 AM EDTPatient Instructions Note Date & Type Note Facility 02-28-2023 History of Present illness Narrative Sergei Chavez is a 73 y.o. female Chief Complaint Annual Exam HPI Patient is here for follow-up continue management for of hypertension, hyperlipidemia, palpitation, PVCs and PACs. Since last time I saw her she reports she is doing well. She denies any complaint of chest pain, palpitation, lightheadedness, dizziness or syncope. She described functional class I. There has been no change in cardiac status or symptoms.. No recurrence Assessment 1. Previous complaint of palpitation with documentation of both PACs and a brief episode of paroxysmal atrial tachycardia. None recently. Home monitoring failed to demonstrate any arrhythmia. Patient appears completely asymptomatic 2. Hypertension well controlled 3. Mild hypokalemia. Corrected. I am awaiting labs to review. I will try to retrieve her recent lab work 4. Hyperlipidemia on treatment and controlled 5. Mild obesity with mild weight gain 6. PVCs which I feel benign based on normal LV systolic function no cardiac symptoms at the moment and good exercise tolerance Plan 1. Continue current treatment 2. Continue to encourage the patient to lose weight and exercise 3. I advised the patient to continue to continue to use her Kardia monitor to keep an eye on her rhythm. 4. Patient was counseled regarding losing weight and exercise. And nonpharmacologic approach to hypertension and hyperlipidemia 5. Patient will notify me change in cardiac status or symptoms 6. I will see her back in 1 year plan I will try to retrieve her recent lab work Review of Systems All other systems reviewed and are negative. Objective Physical Exam Constitutional: Appearance: Normal appearance. She is normal weight. HENT: Nose: Nose normal. Neck: Vascular: No carotid bruit. Cardiovascular: Rate and Rhythm: Normal rate. Pulses: Normal pulses. Heart sounds: Normal heart sounds. Pulmonary: Effort: Pulmonary effort is normal. Abdominal: General: Bowel sounds are normal. Palpations: Abdomen is soft. Genitourinary: Rectum: Normal. Musculoskeletal: General: Normal range of motion. Cervical back: Normal range of motion. Right lower leg: No edema. Left lower leg: No edema. Skin: General: Skin is warm and dry. Neurological: General: No focal deficit present. Mental Status: She is alert. Psychiatric: Mood and Affect: Mood normal. Behavior: Behavior normal. Thought Content: Thought content normal. Judgment: Judgment normal. Visit Vitals BP 120/70 (BP Location: Left arm, Patient Position: Sitting) Pulse 72 Ht 1.651 m (5' 5 ) Wt 86.8 kg (191 lb 6.4 oz) BMI 31.85 kg/m Smoking Status Never BSA 2 m Assessment/Plan There are no diagnoses linked to this encounter. 1. Palpitation 2. Paroxysmal atrial tachycardia Follow Up In Cardiology magnesium oxide (Mag-Ox) 400 mg (241.3 mg magnesium) tablet 3. Premature ventricular contractions Follow Up In Cardiology magnesium oxide (Mag-Ox) 400 mg (241.3 mg magnesium) tablet 4. Class 1 obesity 5. Primary hypertension spironolactone (Aldactone) 25 mg tablet 6. Hyperlipidemia, unspecified hyperlipidemia type documented in this encounter [facility] Work Phone: 02-28-2023 Instructions Nina Stewart LPN - 02/28/2023 9:20 AM EDT Please bring all medicines, vitamins, and herbal supplements with you when you come to the office. Prescriptions will not be filled unless you are compliant with your follow up appointments or have a follow up appointment scheduled as per instruction of your physician. Refills should be requested at the time of your visit. Retrieve lab work Follow up 9 month documented in this encounter [facility] Work Phone: 10-01-2022 Note CONSULTATION CONSULTATION DATE: 10/01/2022 CHIEF COMPLAINT: Includes right knee pain. HISTORY OF PRESENT ILLNESS: Review of systems, past medical/surgical history were obtained and documented on the health questionnaire and is available upon request. She is a 72-year-old female, reports having pain in her right knee joint for many years, at least the last three years. She has undergone physical therapy, use of non-steroidal agents, corticosteroid injections to her right knee and finally Hyalgan type substance into the right knee joint approximately one year ago. She reports that she had at least 75-85% relief involving the right knee joint until recently. She denied any change in bowel and bladder habits or new sensorimotor change in the lower extremities. She reports the pain increased with activities such as standing and walking maneuvers. She feels most comfortable in the semi-recumbent position. She describes stiffness around her knee joint, but the stiffness seems to improve after ambulating for a short distance; however, the pain persists or worsens with weight bearing. EXAM: Her examination is notable for patient having no clinical radiculopathy or myelopathy involving the lower extremities. She has edema overlying the right knee joint. She has significant crepitus of the right knee joint. She had no appreciable J sign. She had nothing to suggest ligamental laxity of her right knee joint. She has a fair amount of myofascial spasm of her right hamstring. She appeared to have no tenderness in the area of her Ramírez's cyst on the right side. IMPRESSION: Our impression is patient has chronic pain secondary to osteoarthrosis of her right knee joint. She has undergone a successful right knee joint injection using Synvisc One approximately one year ago. RECOMMENDATIONS: I have recommended repeating this x1 under fluoroscopic guidance. I have gone over the details of the procedure with the patient. All of her question answered. She agrees to proceed with the outlined plan. As part of providing excellent, safe, comprehensive care, the following was completed at our patient's visit: 1. A medication reconciliation and review to ensure accurate knowledge of current/active medications, including asking our patients to inform us about any [id number] medications or herbal remedies/nutritional supplements/alternative remedies. 2. A review to specifically ensure our patients have had annual screening for: elevated body mass index (BMI, see intake chart for exact total), tobacco use, screening for depression, and screening for unhealthy alcohol use. When screening is concerning, patients are provided with education and the specific recommendation to discuss the concerning health issue and treatment options with their primary care provider. [facility] 07-31-2022 Note PROCEDURE: XR FOOT L T MIN 3 VIEWS COMPARISON: 03/20/2022 HISTORY: Pain in left foot FINDINGS: BONES:Continued healing of a stable extra-articular transverse fracture proximal diaphysis of the fifth metatarsal. No new fracture or dislocation. Moderate degenerative changes with joint space narrowing marginal osteophyte formation. Moderate enthesopathic spurring of the calcaneus SOFT TISSUES:Negative. No visible soft tissue swelling. EFFUSION:None visible. OTHER: Negative. IMPRESSION: Stable healing fracture of the fifth metatarsal Electronically authenticated by: ANANTH VALENTINE Date: 2022-07-31 10:34 [facility] 03-20-2022 Note PROCEDURE: XR FOOT L T MIN 3 VIEWS HISTORY: Pain in left foot ; follow-up left fifth metatarsal fracture COMPARISON: XR foot left 02/19/2022 FINDINGS: BONES:Persistent fracture line within proximal fifth metatarsal diaphysis with well-defined corticated fracture margins and evidence of chronic callus formation along lateral margin. Alignment is maintained. SOFT TISSUES:No visible soft tissue swelling. EFFUSION:None visible. OTHER: Negative. IMPRESSION: 1. Incomplete osseous healing of nondisplaced fifth metatarsal fracture with appearance favoring chronic pseudoarticulation. Electronically authenticated by: NEPTALI GOODE Date: 2022-03-20 21:30 [facility] 02-19-2022 Note PROCEDURE: XR FOOT L T MIN 3 VIEWS COMPARISON: 01/22/2022 HISTORY: Pain in left foot FINDINGS: BONES:Again demonstrated are subacute/chronic fractures involving the lateral proximal first metatarsal and fifth metatarsal with incomplete bony bridging. The fractures appear stable. No dislocation. Moderate degenerative change. Moderate enthesopathic spurring of the calcaneus. SOFT TISSUES:Dorsal midfoot hindfoot surgical clips EFFUSION:None visible. OTHER: Negative. IMPRESSION: Stable fractures of the first and fifth metatarsals with incomplete bony bridging Electronically authenticated by: ANANTH VALENTINE Date: 2022-02-19 18:22 [facility] 01-22-2022 Note PROCEDURE: XR FOOT L T MIN 3 VIEWS HISTORY: Pain in left foot ; follow-up fifth metatarsal fracture COMPARISON: XR foot left 01/02/2022, wall left foot radiographs dating back to 06/21/2021 FINDINGS: BONES:Persistent widening of the fifth metatarsal fracture line increasing sclerosis at the margins. Some callus formation along the lateral margin. Interval development of nondisplaced fracture of the first metatarsal with developing callus formation at the lateral margin. SOFT TISSUES:No visible soft tissue swelling. EFFUSION:None visible. OTHER: Negative. IMPRESSION: 1. Incomplete healing of fifth metatarsal fracture possibly due to repetitive motion. No appreciable progression. 2. Development of first metatarsal fracture/stress fracture. Electronically authenticated by: NEPTALI GOODE Date: 2022-01-22 10:35 [facility] 01-02-2022 Note PROCEDURE: XR FOOT L T MIN 3 VIEWS COMPARISON: 12/27/2021 HISTORY: Pain in left foot FINDINGS: BONES:Again demonstrated is a transverse chronic fracture proximal diaphysis of the fifth metatarsal with no significant interval change. No acute fracture or dislocation. Moderate enthesopathic spurring of the calcaneus. SOFT TISSUES:Negative. No visible soft tissue swelling. EFFUSION:None visible. OTHER: Scattered surgical josee. IMPRESSION: Stable transverse fracture of the fifth metatarsal with incomplete bony bridging Electronically authenticated by: ANANTH VALENTINE Date: 2022-01-02 16:27 [facility] 12-28-2021 Note PROCEDURE: XR FOOT L T MIN 3 VIEWS HISTORY: Pain in left foot COMPARISON: XR foot left 11/29/2021 FINDINGS: BONES:Transverse fracture at base of fifth metatarsal with sclerosis and partial healing of the medial margin with well-defined fracture line remain at the lateral margin despite some bridging callus. Normal alignment is maintained. Mild degenerative changes the midfoot. Degenerative calcaneal enthesopathic spurring. SOFT TISSUES:No visible soft tissue swelling. EFFUSION:None visible. OTHER: Negative. IMPRESSION: 1. Incomplete healing of fifth metatarsal fracture with appearance suggestive of continued motion at fracture site preventing healing. Electronically authenticated by: NEPTALI GOODE Date: 2021-12-28 07:39 [facility] 11-30-2021 Note PROCEDURE: XR FOOT L T MIN 3 VIEWS HISTORY: Pain in left foot ; acute lateral left foot pain, history of stress fracture COMPARISON: XR foot left 08/28/2021 FINDINGS: BONES:Chronic, incompletely healed fifth metatarsal diaphyseal fracture which appears to now extend transversely through the rest of the bone. SOFT TISSUES:No visible soft tissue swelling. EFFUSION:None visible. OTHER: Multiple surgical clips within soft tissues anterior and medial to the ankle. IMPRESSION: 1. Suspect re-fracture of the incompletely healed chronic fifth metatarsal fracture. Electronically authenticated by: NEPTALI GOODE Date: 2021-11-30 08:48 [facility] Evaluation + Plan note No data available for this section [facility] Evaluation note Diagnosis Palpitation- Primary Palpitations Paroxysmal atrial tachycardia Paroxysmal supraventricular tachycardia Premature ventricular contractions Other premature beats Class 1 obesity Primary hypertension Unspecified essential hypertension Hyperlipidemia, unspecified hyperlipidemia type documented in this encounter [facility] Work Phone: History of Present illness Narrative* Assessment * 1. Palpitation appears to be mainly PVCs but there was some documentation of atrial tachycardia. However recent home monitoring failed to demonstrate any arrhythmia. Patient appears completely asymptomatic * 2. Hypertension well controlled * 3. Mild hypokalemia. Corrected * 4. Hyperlipidemia on treatment * 5. Mild obesity * 6. PVCs which I feel benign based on normal LV systolic function no cardiac symptoms at the moment and good exercise tolerance * Plan * 1. Continue current treatment * 2. Continue to encourage the patient to lose weight and exercise * 3. I advised the patient to continue to continue to use her Kardia monitor to keep an eye on her rhythm. * 4. Patient was counseled regarding losing weight and exercise. And nonpharmacologic approach to hypertension and hyperlipidemia * 5. Patient will notify me change in cardiac status or symptoms * 6. Patient will repeat her lab work prior to next office visit and in the near future and I will see her back in 1 year [facility] DO Work Phone: History of Present illness Narrative* Patient is here for follow-up to management for previous evaluation for palpitation with documentation of isolated PVCs, hypertension, hyperlipidemia and obesity. Since last time I saw her she reports functional class I. She denies any complaint of chest pain, palpitation, lightheadedness, dizziness or syncope. I reviewed with her her home heart rate monitoring strips and no arrhythmia has been documented. Her recent laboratory data and a previous lab work were noted and reviewed with her. * Assessment * 1. Previous complaint of palpitation with documentation of both PACs and a brief episode of paroxysmal atrial tachycardia. None recently. Home monitoring failed to demonstrate any arrhythmia. Patientappears completely asymptomatic * 2. Hypertension well controlled * 3. Mild hypokalemia. Corrected * 4. Hyperlipidemia on treatment and controlled * 5. Mild obesity with mild weight gain * 6. PVCs which I feel benign based on normal LV systolic function no cardiac symptoms at the moment and good exercise tolerance * Plan * 1. Continue current treatment * 2. Continue to encourage the patient to lose weight and exercise * 3. I advised the patient to continue to continue to use her Kardia monitor to keep an eye on her rhythm. * 4. Patient was counseled regarding losing weight and exercise. And nonpharmacologic approach to hypertension and hyperlipidemia * 5. Patient will notify me change in cardiac status or symptoms * 6. I will see her back in 1 year plan to repeat her lab work -[facility] DO Work Phone: Hospital Discharge instructions No data available for this section [facility] No data available for this section General [facility] Reason for referral (narrative)* Consultation (Routine) - Authorized Specialty Diagnoses / Procedures Referred By Corrie rubio Referred To Contact Cardiology Diagnoses Paroxysmal atrial tachycardia Premature ventricular contractions Procedures Follow Up In Cardiology Bradly Tanner MD [address] [facility] [address] [place] [address] Referral ID Status Reason Start Date Expiration Date V isits Requested Visits Authorized [id number] Authorized 02/28/2023 08/27/2023 1 1 [facility] Work Phone: Summary Purpose Family History Unknown Family Member Name Dates Details Family history of cerebrovas cular accident (CVA): Father(V17.1, Z82.3) Status:Active Family history of congestive heart failure: Father(V17.49, Z82.49) Status:Active Family history of hypertensi on: Father(V17.49, Z82.49) Status:Active Heart problem: Father Status:Active Unknown Family Member Name Dates Details Family history of cerebrovas cular accident (CVA): Father(V17.1, Z82.3) Status:Active Family history of congestive heart failure: Father(V17.49, Z82.49) Status:Active Family history of hypertensi on: Father(V17.49, Z82.49) Status:Active Heart problem: Father Status:Active Unknown Family Member Name Dates Details Family history of cerebrovas cular accident (CVA): Father(V17.1, Z82.3) Status:Active Family history of congestive heart failure: Father(V17.49, Z82.49) Status:Active Family history of hypertensi on: Father(V17.49, Z82.49) Status:Active Heart problem: Father Status:Active Advance Directives No Advanced Directives Records FoundNo Advanced Directives Records FoundNo Advanced Directives Records FoundNo Advanced Directives Records FoundNo Advanced Directives Records FoundNo Advanced Directives Records FoundNo Advanced Directives Records Found Chief Complaint HECTOR CHAVEZ is being seen for an annual follow-up of.HECTOR CHAVEZ is being seen for an annual follow-up of. Additional Source Comments INFORMATION SOURCE (unrecogn ized section and content) DATE CREATED AUTHOR 03/27/2018 [facility] DATE CREATED AUTHOR AUTHOR'S ORGANIZ ATION 08/13/2019 [facility] DATE CREATED AUTHOR AUTHOR'S ORGANIZ ATION 03/01/2022 [facility] DATE CREATED AUTHOR AUTHOR'S ORGANIZ ATION 03/02/2022 [facility] DATE CREATED AUTHOR AUTHOR'S ORGANIZ ATION 10/10/2022 [facility] DATE CREATED AUTHOR AUTHOR'S ORGANIZ ATION 03/04/2023 [facility] DATE CREATED AUTHOR AUTHOR'S ORGANIZ ATION 05/13/2023 [facility] Reason for Visit (unrecogniz ed section and content) Reason Comments Annual Exam 1yr Care Teams (unrecognized sec tion and content) Personnel Name: Zeny Stanley MD Address: Address: [address] [place] [address] [place] [address]- Refresh Technician Relationship Specialty Start Date End Date Zeny Stanley MD [address] [place] [address] [place] [address] PCP - General 06/01/19 FOR RECORDS PERTAINING TO PATIENTS WHO ARE OR HAVE BEEN ENROLLED IN A CHEMICAL DEPENDENCY/SUBSTANCEABUSE PROGRAM, SOME INFORMATION MAY BE OMITTED. This clinical summary was aggregated from multiple sources. Caution should be exercised in using it in the provision of clinical care. This summary normalizes information from multiple sources, and as a consequence, information in this document may materially change the coding, format and clinical context of patient data. In addition, data may be omitted in some cases. CLINICAL DECISIONS SHOULD BE BASED ON THE PRIMARY CLINICAL RECORDS. [facility] [employer] [facility]. provides no warranty or guarantee of the accuracy or completeness of information in this document.
--- NOTE | 2023-05-22 09:49 | P.CN_ITS ---
Consult Note: HPI Data of Consult Patient: known to practice within the last 3 years Requesting Physician: Flori Ott NP Primary Care Provider: Familia Stanley MD Consult Narrative Reason for consult: injection f/u Narrative: Kay evans pleasant 73 year old female presents for evaluation and management of chronic knee pain. Today pain 4-5/10 with ambulation. patient feels weakness greater in left knee than right knee. 04/29/23 right durolane injection provided mild pain relief, feels left injection is wearing off at this time. Patient would like to discuss additional options as she is not interested in surgery at this time. cc:: CC: Flori Ott NP Review of Systems ROS Status of ROS 10 or more systems reviewed and unremark able except as noted in history and below Musculoskeletal Reports: joint pain PFSH PFSH Medical History (Updated 04/22/23 @ 13:28 by Erum Burnham) Irregular heart beat ?I49.9 - Cardiac arrhythmia, unspecified (ICD-10) Hypercholesterolemia ?E78.00 - Pure hypercholesterolemia, unspecified (ICD-10) Osteoarthritis ?M19.90 - Unspecified osteoarthritis, unspecified site (ICD-10) Hypertension ?I10 - Essential (primary) hypertension (ICD-10) Surgical History H/O vein stripping ?Z98.890 - Other specified postprocedural states (ICD-10) H/O: hysterectomy ?Z90.710 - Acquired absence of both cervix and uterus (ICD-10) Hx of tonsillectomy ?Z90.89 - Acquired absence of other organs (ICD-10) Hx of cataract surgery ?Z98.49 - Cataract extraction status, unspecified eye (ICD-10) Hx of appendectomy ?Z90.49 - Acquired absence of other specified parts of digestive tract (ICD- 10) Meds Home Medications and Allergies Home Medications Medication Instructions Recorded Confirmed Type alendronate 70 mg tablet (Fosamax) 70 mg PO QWEEK 10/31/22 04/29/23 History amitriptyline 75 mg tablet 75 mg PO DAILY 10/31/22 04/29/23 History calcium carbonate 600 mg calcium 600 mg PO BID 10/31/22 04/29/23 History (1,500 mg) tablet (Calcium) diclofenac sodium 1 % topical gel 2 g topical BID PRN pain 10/31/22 04/29/23 History (Arthritis Pain (diclofenac)) lisinopril 5 mg tablet 5 mg PO DAILY 10/31/22 04/29/23 History metoprolol tartrate 50 mg tablet 50 mg PO BID 10/31/22 04/29/23 History multivitamin 1 tab PO DAILY 10/31/22 04/29/23 History simvastatin 20 mg tablet 20 mg PO DAILY 10/31/22 04/29/23 History spironolactone 25 mg tablet 25 mg PO DAILY 10/31/22 04/29/23 History Allergies Allergy/AdvReac Type Severity Reaction Status Date / Time No Known Drug Allergies Allergy Verified 02/25/23 08:37 Exam Constitutional Documenting provider has reviewed patient's vital signs: yes Common normals: no apparent distress, oriented x3, healthy appearing, alert and well nourished General appearance: cooperative HENMT Common normals: normocephalic, hearing grossly normal bilaterally and moist oral mucous membranes Head and scalp: normocephalic Eye Common normals: PERRL Pupil: PERRL Neck & C-Spine Common normals: full ROM General: normal visual inspection Chest Common normals: inspection of chest normal Respiratory Common normals: normal respiratory effort, no retractions and no use of accessory muscles Extremity Right lower extremity: knee joint Left lower extremity: knee joint Other: right and left knee enlarged diameter positive lateral stress testing and crepitus to bilateral knee no redness edema present Neuro Common normals: oriented x3, CN's II-XII intact bilaterally, moves all extremities, no focal motor deficits, no sensory deficits noted and deep tendon reflexes 2+ bilaterally Sensorium/orientation: alert Motor exam: strength 5/5 throughout and no movement abnormalities noted Psych Common normals: mental status grossly normal, thought process normal, cooperative, affect normal, speech normal and activity/motor behavior normal Speech: normal speech Thought process: normal thought process Assessment and Plan Assessment and Plan (1) Knee osteoarthritis: (2) Left knee pain: (3) Right knee pain: Plan bilateral genicular nerve blocks under fluoroscopy with Dr Cummins working towards thermal RFA for chronic pain unresponsive to medications and injections. f/u 1 week after procedure
== END 2023-05-22 09:21 | disposition home or self-care (01) ==
LOC: PM 09:20
PROVIDERS: PCP Family Medicine; Visit Provider Nurse Practitioner
DX: M17.0 Bilateral primary osteoarthritis of knee (principal); M25.562 Pain in left knee; M25.561 Pain in right knee
CPT/HCPCS: G0463

== ENCOUNTER 2023-06-17 08:01 | Day surgery (SDC) | payer MEDICARE, BC, SELFPAY ==
--- OUTSIDE RECORDS SUMMARY | 2023-06-17 08:05 | XMS_ITS | CCD ---
Author Name Unknown Address [address] [place] [address] Organization [facility] Care Team Providers Care Crew Supervisor Name Role Phone JENNIFER LANTIGUAAN Unavailable Unavailab ZENY Guzmán Unavailable Unavailable Zeny Stanley Unavailable Unavailable Unavailable Zeny Stanley Primary Care Physician Dr. Bradly Tanner Referring Unavaila ezio Tanner, Dr. Abdullahi Attending Unavaila Zeny Agarwal Primary Care Unavailable SHARMIN .SHANE Attending Unavailable SHARMIN .SHANE Admitting Unavailable LIZETH ., DR MOURA Primary Care Unavailable LIZETH ., DR MOURA Primary Care Unavailable REMI ., NARWESLY Attending Toma vailable REMI ., NARELSAATH Admitting Toma vailable MEME, DR ANANTH Danielson [...] Danielson Consulting Unavailable RAY WEINSTEIN Consulting Unavailable CORINNA, RAY Pelayo Attending Unavailable RAY WEINSTEIN Admitting Unavailable REQUEST, NONE LISTED Primary Care Unavaila ble RUPA, DR NEPTALI Eason Consulting Unavailable CORINNA, RAY Pelayo Consulting Unavailable TRABOULSSI, DR ABDULLAHI Consulting Unavailab le TRABOULSSI, DR ABDULLAHI Attending Unavailab le TRABOULSSI, DR ABDULLAHI Admitting Unavailab le REQUEST, DR NONE LISTED Primary Care Unavaila ble WEST, DR ANANTH Danielson Consulting Unavailable REQUEST, NONE LISTED Primary Care [...] Toma vailable MISC, DOCTOR Primary Care Unavailable Zeny Stanley MD Primary Care Provider BRADLY TANNER Attending Unavailable ZENY STANLEY Primary [...] Status: Ordered take 1 tablet by katja three times daily as needed ALPRAZolam (Xanax) [...] Start: 11-16-2021 take 1 tablet by katja once daily lisinopril 20 mg tablet Take [...] 02/28/2023 Discontinued (Reorder) take 2 tablets by [facility] once daily Magnesium Oxide 400 MG [...] Ordered Start: 04-10-2021 take 2 tablets by mo [facility] once daily metoprolol succinate XL (Toprol-XL) 50 mg 24 hr tablet Take 2 tablets (100 mg) by mouth once daily. 0 04/10/2021 Active Start: 04-10-2021 take 2 tablets by mo [facility] once daily Metoprolol Succinate ER 50 MG Oral Tablet Extended Release 24 Hour take 2 tablets by mouth every day Quantity: 180 Refills: 3 Ordered: 10-Apr-2021 Bradly Tanner MD Start : 10-Apr-2021 Active Start: 10-14-2019 take 1 mg by mouth once daily metoprolol 50 mg ER Tab mg tab(s), Oral, Daily, Refills(s) 0 Start Date: 10/14/19 Status: Ordered MiraLax 3350 Oral Pwdr for Recon 249 gram (2 sources) Start: 10-14-2019 MiraLax 3350 Oral Pwdr for Recon 249 gram 17 gram, Oral, Every other day, # 255 gram, Refills(s) 11, [id number], 165.1, cm, 10/14/19 13:03:00 EDT, Height/Length [...] Test Name Value Interpretation Reference Range Facility Facesheeton 05-21-2023 Facesheet [id number]#1.00TIFF Normal [facility] Ambulatory Visit Summaryon 1 07-21-2022 Ambulatory Visit Summary HECTOR CHAVEZ :1950 Visit Date:05/20/2023 Ambulatory Visit Instructions Your Care Team Attending Physician - TITO AUGUSTINE, Federico Eason Primary Care Physician - Zeny Stanley MD Referring Physician - Zeny Stanley MD This Is Your Medications List Contact prescribing physician if questions or concerns alendronate (Fosamax 70 mg oral tablet) alprazolam (alprazolam 0.25 mg Tab) amitriptyline aspirin (aspirin 81 mg Oral EC Tab) bifidobacterium-lactobacil fortunato (Envive oral capsule) lisinopril (lisinopril 40 mg Tab) metoprolol (Metoprolol tartrate 50 mg Tab) multivitamin (Multi Vitamin+) polyethylene glycol 3350 (MiraLax 3350 Oral Pwdr for Recon 249 gram) simvastatin spironolactone (spironolactone 25 mg Tab) Procedures Performed Excision of lesion of skin (06/05/2016), Cataract extraction, Dilation and curettage, Stripping of vein, WANDY BSO - Total abdominal hysterectomy and bilateral salpingo-oophorectomy, Tonsillectomy. Discharge Vitals Heart Rate (Peripheral) 72 Respiratory Rate 16 Blood Pressure 128/78 Height 165 cm Height 65 in Weight 88.9 kg Weight 195.58 lb BMI 32.65 Medications What How Much When Instructions Unchanged alendronate (Fosamax 70 mg oral tablet) 1 Tablets By Mouth Every week Contact prescribing physician if questions or concerns Unchanged alprazolam (alprazolam 0.25 mg Tab) 1 Tablets By Mouth 3 times a day as needed for as needed for anxiety Contact prescribing physician if questions or concerns Unchanged amitriptyline 75 Milligram By Mouth Once a day (at bedtime) Contact prescribing physician if questions or concerns Unchanged aspirin (aspirin 81 mg Oral EC Tab) 1 Tablets By Mouth Every day Contact prescribing physician if questions or concerns Unchanged bifidobacterium-lactobacil fortunato (Envive oral capsule) See instructions Per physician's instructions. Contact prescribing physician if questions or concerns Unchanged lisinopril (lisinopril 40 mg Tab) 1 Tablets By Mouth Every day Contact prescribing physician if questions or concerns Unchanged metoprolol (Metoprolol tartrate 50 mg Tab) 1 Tablets By Mouth 2 times a day Contact prescribing physician if questions or concerns Unchanged multivitamin (Multi Vitamin+) 1 tab By Mouth Every day Contact prescribing physician if questions or concerns Unchanged polyethylene glycol 3350 (MiraLax 3350 Oral Pwdr for Recon 249 gram) 17 Gram By Mouth Every other day Contact prescribing physician if questions or concerns Unchanged simvastatin 20 Milligram By Mouth Once a day (at bedtime) Contact prescribing physician if questions or concerns Unchanged spironolactone (spironolactone 25 mg Tab) 1 Tablets By Mouth Every day Contact prescribing physician if questions or concerns Allergies No Known Allergies Problems Ongoing - Any problem that you are currently receiving treatment for. Arthritis BMI 32.0-32.9,adult Cataracts, bilateral Colon cancer screening Constipation Hypercholesterolemia Hypertension Obesity Osteoporosis Supraventricular tachycardia Venous varices Historical - Any problem that you are no longer receiving treatment for. Measles Mumps Patient Survey You may receive a survey via text or e-mail asking about your office visit. Please share your experience with us by completing your survey. We appreciate your feedback and thank you for choosing us for your care. Normal [facility] Physician Referralon 023 Physician Referral [id number]#[id number] Normal [facility] MA Mamm Screen w/CAD if perf and 3D Bilon 10-09-2022 MA Mamm Screen w/CAD if perf and 3D Allen Exam Date/Time: 10/08/2022 12:02 EDT Reason for Exam: [id number] Report IMPRESSION: BIRADS 2 BENIGN FINDINGS, NORMAL [...] very important to your health. The current [employer] and National Comprehensive Cancer [...] Category 2-Benign finding Recommendation: Normal interval follow-up Normal [facility] Consent for Treatmenton 09-23 Consent for Treatment [id number]#[id number]:127 Normal [facility] Physician Orderon 09-23-2022 Physician Order [id number]#1.00CD:127 Normal [facility] Office Visit (Cardiology)on 03-01-2022 Follow-up visit Diagnoses/Problems [...] and are (more content not included)... Normal [employer] Tobacco Screening.on Adult depression screening assessment No [facility] Work Phone: Fall risk assessment a) No falls within the last year [facility] 250 DO Work Phone: Tobacco use status [facility] b) No [facility] 250 DO Work Phone: PROF CHEM 8 (BAS METB)on Anion gap [Moles/Vol] 11.4 mmol/L Normal [facility] Comment on above: Performed By: #### B MP #### [facility] [address] [place] [address] Dr. Octavio Price Calcium [Mass/Vol] 9.1 mg/dL Normal 8.5-10.1 [facility] Comment on above: Performed By: #### B MP #### [facility] [address] [address] [address] Octavio Price Chloride [Moles/Vol] 105 mmol/L Normal 98-107 [facility] Comment on above: Performed By: #### B MP #### [facility] [address] [address] [address] Octavio Price CO2 [Moles/Vol] 30.6 mmol/L Normal 21.0-32.0 [facility] Comment on above: Performed By: #### B MP #### [facility] [address] [address] [address] Octavio Price Creatinine [Mass/Vol] 0.75 mg/dL Normal 0.55-1.02 [facility] Comment on above: Performed By: #### B MP #### [facility] [address] [address] [address] Octavio Price EGFR-AF EQUATORIAL GUINEAN >60 Normal >=60 [facility] Comment on above: Performed By: #### B MP #### [facility] [address] [address] [address] Octavio Price EGFR-NON AF EQUATORIAL GUINEAN >60 Normal >=60 [facility] Comment on above: Performed By: #### B MP #### [facility] [address] [address] [address] Octavio Price Glucose [Mass/Vol] 84 mg/dL Normal 74-106 [facility] Comment on above: Performed By: #### B MP #### [facility] [address] [address] [address] Octavio Price Potassium [Moles/Vol] 4.0 mmol/L Normal 3.5-5.1 [facility] Comment on above: Performed By: #### B MP #### [facility] [address] [address] [address] Octavio Price Sodium [Moles/Vol] 143 mmol/L Normal 136-145 [facility] Comment on above: Performed By: #### B MP #### [facility] [address] [address] [address] Octavio Price Urea nitrogen [Mass/Vol] 13.0 mg/dL Normal 7.0-18.0 [facility] Comment on above: Performed By: #### B MP #### [facility] [address] [place] [address] Dr. Octavio Price Urea nitrogen/Creatini ne [Mass ratio] 17.3 mg/mg Normal [facility] Comment on above: Performed By: #### B MP #### [facility] [address] [place] [address] Dr. Octavio Price Tobacco Screening.on 021 Fall risk assessment a) No falls within the last year [facility] 250 DO Work Phone: Heart Rate Normal [facility] 250 DO Work Phone: Tobacco use status [facility] b) No [facility] 250 DO Work Phone: CREATININEon 06-01-2019 Creatinine [Mass/Vol] 0.75 mg/dL Normal 0.50 - 1.05 [facility] Comment on above: Performed By: #### C REAT #### [address] [address] Creatinine [Mass/Vol] mg/dL Normal >60 [facility] Comment on above: Performed By: #### C REAT #### [address] [address] Result Comment: CALC ULATIONS OF ESTIMATED GFR ARE PERFORMED USING THE MDRD STUDY EQUATION FOR THE IDMS-TRACEABLE CREATININE METHODS. CLIN CHEM 2007;53:766-72 ELECTROLYTE PANELon 06-01-19 20 Anion gap [Moles/Vol] 13 mmol/L Normal 10 - 20 [facility] Comment on above: Performed By: #### E LECT #### [address] [address] Chloride [Moles/Vol] 103 mmol/L Normal 98 - 107 [facility] Comment on above: Performed By: #### E LECT #### [address] [address] HCO3 (Bld) [Moles/Vol] 29 mmol/L Normal 21 - 32 [facility] Comment on above: Performed By: #### E LECT #### [address] [address] Potassium [Moles/Vol] 4.0 mmol/L Normal 3.5 - 5.3 [facility] Comment on above: Performed By: #### E LECT #### [address] [address] Sodium [Moles/Vol] 141 mmol/L Normal 136 - 145 [facility] Comment on above: Performed By: #### E LECT #### [facility] [address] [place] [address] UREA NITROGENon 06-01-2019 Urea nitrogen [Mass/Vol] 19 mg/dL Normal 6 - 23 [facility] Comment on above: Performed By: #### U KRUPA #### [facility] [address] [place] [address] CNOVon 02-27-2018 CNOV Office Visit (CARDFT) CLIVECHEPE BECKMANJ BRETT Ryan ([id number]) 1950 FDate Time Provider [id number]/5/18 10:30 AM JENNIFER LANTIGUA During your visit today, we recorded the following information about you: Pulse Respiration Blood pressure Weight 64/minute 18/minute 150/81 80.7 kg Height 1.651 Liz Lantigua MD 02/27/2018 10:54 AM [facility] InstituteIrving[facility] and [place] Guido Department of Cardiovascular MedicineOUTPATIENT VISIT DATE 02/27/18OUTPATIENT VISIT TYPEESTABLISHEDPRIMARY CARE PHYSICIAN:Zeny Stanley MD[address] [facility] [address]Zfkdb: [phone]: [phone] COMPLAINT:Patient presents with:Established PatientHISTORY OF PRESENT ILLNESS:Hector [...] palpitations. There are no PVCs on her electrocardiogram.PLAN:Rip roberson current medical regimen. Change lisinopril dosing time to everymorning with first dose of carvedilol.Monitor blood pressure at home.Low-cholesterol, low-fat diet.Regular aerobic exercise.Patient will follow-up with primary care physician as this office is closing.She can follow-up with us as needed.A copy of this note will be provided to the requesting provider by [facility] medical [facility] or via U.S. Mail.This document was generated utilizing [employer] dictation. I have reviewed andverified that the contents of the document are accurate with the exception ofminor grammatical, spelling and punctuation errors.CONTACT INFORMATION:Thank you for allowing us to participate in the care of this very pleasantpatient. Please free to contact us if we can be of any further assistance.Jennifer Lantigua MD, FACCRobert and Mariana Beauchamppartment of Cardiovascular MedicineSt. Rita'S Hospitalrt and Vascular Institute[address] [address]Nrnnfl: [phone] Referring Provider: ZENY STANLEY [[id number]]Allergies As of Date: 02/27/2018(No Known Allergies)Date Reviewed: [...] by DYANA LANTIGUA MD on 02/27/18 Normal [facility] PROGRESSon 02-27-2018 Protein mass conc HNO ID: [id number] thor: Jennifer Hoganervice: (none)Author Type: PhysicianType: Progress NotesFiled: 02/27/2018 10:54 AMNote Text:[facility] Department of Cardiovascular MedicineOUTPATIENT VISIT DATE 02/27/18OUTPATIENT VISIT TYPEESTABLATRIUM HEALTH CABARRUSPRNOR[facility] CARE PHYSICIAN:Zeny Stanley MD[address] [facility] [address]Yujqu: [phone]: [phone] COMPLAINT:Patient presents with:Established PatientHISTORY OF PRESENT ILLNESS:Hector [...] provided to the requesting provider by way [facility] medical record or via U.S. Mail.This document was generated utilizing [employer] dictation. I have reviewedand verified that the contents of the document are accurate with theexception of minor grammatical, spelling and punctuation errors.CONTACT INFORMATION:Thank you for allowing us to participate in the care of this very pleasantpatient. Please free to contact us if we can be of any furtherassistance.Jennifer Lantigua MD, FACCRobert and Mariana GeScpartment of Cardiovascular MedicineSt. Rita'S Hospitalrt and Vascular InstituteUniversity Hospitals Samar[facility] Center[address], [place] [address]Gjvbvd: [phone] Normal [facility] Vital Signs Date Time Vital Sign Value Performing Clinician Facility 05-20-2023 15:09-0500 Blood Pressure Location Federico CMINTOSHVarinder [facility] [place] 05-20-2023 15:09-0500 Diastolic blood pressure 78 mm[Hg] Fedeirco FRANCIS [facility] [place] 05-20-2023 15:09-0500 Heart rate 72 /min Federico FRANCIS [facility] [place] 05-20-2023 15:09-0500 Respiratory rate 16 /min Federico TITO [facility] [place] 05-20-2023 15:09-0500 Systolic blood pressure 128 mm[Hg] Federico FRANCIS [facility] [place] 02-28-2023 09:40-0400 Body height 165.1 cm Bradly Tanner MD Work Phone: [facility] 02-28-2023 09:40-0400 Body mass index (BMI) [Ratio] 31.85 kg/m2 Bradly Tanner MD Work Phone: [facility] 02-28-2023 09:40-0400 Body weight 86.82 kg Bradly Tanner MD Work Phone: [facility] 02-28-2023 09:40-0400 Diastolic blood pressure 70 mm[Hg] Bradly Tanner MD Work Phone: [facility] 02-28-2023 09:40-0400 Heart rate 72 /min Bradly Tanner MD Work Phone: [facility] 02-28-2023 09:40-0400 Systolic blood pressure 120 mm[Hg] Bradly Tanner MD Work Phone: [facility] 03-01-2022 09:41-0400 Body height 165.1 cm Zeny Stanley Work Phone: [facility] 250 DO Work Phone: 03-01-2022 09:41-0400 Body mass index (BMI) [Ratio] 31.78 kg/m2 Zeny M Hoy Work Phone: [facility] 250 DO Work Phone: 03-01-2022 09:41-0400 Body surface area Derived from formula 1.94 m2 Zeny M Hoy Work Phone: [facility] 250 DO Work Phone: 03-01-2022 09:41-0400 Body weight 86.64 kg Zeny M Hoy Work Phone: [facility] 250 DO Work Phone: 03-01-2022 09:41-0400 Diastolic blood pressure 80 mm[Hg] Zeny M Hoy Work Phone: [facility] 250 DO Work Phone: 03-01-2022 09:41-0400 Heart rate 69 /min Zeny M Hoy Work Phone: [facility] DO Work Phone: 03-01-2022 09:41-0400 Systolic blood pressure 130 mm[Hg] Zeny M Hoy Work Phone: [facility] DO Work Phone: 02-23-2021 09:42-0400 Body height 165.1 cm Zeny M Hoy Work Phone: [facility] DO Work Phone: 02-23-2021 09:42-0400 Body mass index (BMI) [Ratio] 31.62 kg/m2 Zeny M Hoy Work Phone: [facility] DO Work Phone: 02-23-2021 09:42-0400 Body surface area Derived from formula 1.94 m2 Zeny M Hoy Work Phone: [facility] 250 DO Work Phone: 02-23-2021 09:42-0400 Body weight 86.18 kg Zeny Stanley Work Phone: [facility] DO Work Phone: 02-23-2021 09:42-0400 Diastolic blood pressure 82 mm[Hg] Zeny Stanley Work Phone: [facility] DO Work Phone: 02-23-2021 09:42-0400 Heart rate 62 /min Zeny Stanley Work Phone: [facility] DO Work Phone: 02-23-2021 09:42-0400 Systolic blood pressure 126 mm[Hg] Zeny Stanley Work Phone: [facility] DO Work Phone: Encounters Encounter Date Encounter Type Care Provider Facility Start: 05-20-2023 End: 05-21-2023 ambulatory Federico FRANCIS Facility:[facility] Start: 05-20-2023 End: 05-20-2023 Patient encounter procedure Federico FRANCIS [facility] Start: 05-05-2023 ambulatory Huma Shannon Facility:[facility] Start: 02-28-2023 End: 02-28-2023 ambulatory [facility] Ambulatory Start: 02-28-2023 End: 02-28-2023 Office outpatient visit 15 minutes Bradly Tanner MD Work Phone: [facility] Comment on above: Palpitation (Primary Dx); Paroxysmal atrial tachycardia; Premature ventricular contractions; Class 1 obesity; Primary hypertension; Hyperlipidemia, unspecified hyperlipidemia type Start: 10-31-2022 ambulatory SHANE FINNEY . Facili ty:[facility] Start: 10-15-[address] ZENY STANLEY . Facili ty:[facility] Start: 10-08-2022 End: 10-09-2022 ambulatory Huma Shannon Facility:[facility] Start: 10-01-2022 End: 10-02-2022 ambulatory ANA ESTRADADARLENENELLYQuiana . Facility:[facility] Start: 07-31-2022 End: 08-01-2022 ambulatory RAY WEINSTEIN Facility:[facility] Start: 03-20-2022 End: 03-21-2022 ambulatory RAY Pelayo [facility] Facility:[facility] Start: 03-08-2022 Rx Renewal Zeny Stanley Work Phone: [facility] 250 DO Work Phone: Start: 03-01-[address] Bradly Tanner Facility: Start: 03-01-2022 Office outpatient vi sit 15 minutes Zeny Stanley Work Phone: [facility] 250 DO Work Phone: Start: 02-19-2022 End: 02-20-[address] ANANTH VALENTINE Facility:[facility] Start: 02-04-2022 End: 02-05-[address] BRADLY TANNER Facility:[facility] Start: 01-22-2022 End: 01-23-2022 ambulatory CRISTIAN ROBERTO Facility:[facility] Start: 01-02-2022 End: 01-03-[address] ANANTH VALENTINE Facility:[facility] Start: 12-27-2021 End: 12-28-2021 ambulatory CRISTIAN ROBERTO Facility:[facility] Start: 11-29-2021 End: 11-30-2021 ambulatory CRISTIAN ROBERTO Facility:[facility] Start: 10-04-2021 End: 10-04-2021 Patient encounter procedure Huma Shannon [facility] Start: 02-23-2021 Patient encounter procedure Zeny Stanley Work Phone: [facility] DO Work Phone: Start: 02-27-2018 End: 03-13-2018 Patient encounter JENNIFER LANTIGUA [facility] Procedures Date Procedure Procedure Detail Performing Clinician Start: 06-05-2016 Excision of lesion of skin Federico MCINTOSHVarinder Comment on above: left ear Appendectomy Zeny Keane Hoy Work Phone: Cataract surgery Zeny Keane H oy Work Phone: Dilation and curettage Teres a Shiva Extraction of cataract Nirav mushtaq NILL Hysterectomy Zeny M Hoy Work Phone: Hysterectomy Huma Shiva Ligation of varicose vein Do uglas M Hoy Work Phone: Stripping of vein Huma العلي pe Tonsillectomy Zeny Keane Hoy Work Phone: Tonsillectomy Huma Shiva Total abdominal hysterectomy with bilateral salpingo-oophorectomy Federico FRANCIS Plan of Treatment Date Care Activity Detail Author Start: 08-13-2024 Screening for malign ant neoplasm of colon [facility] Start: 03-19-2024 End: 03-19-2024 Patient encounter procedure 03/19/2024 10:20 AM EDT Office Visit [facility] [address] [address] Bradly Tanner MD 703 [facility] [address], [address] [address] [facility] Start: 02-28-2023 FUV, Provider: Bradly Tanner, Status: Pen, Time: 9:20 AM FUV, Provider: Bradly Tanner, Status: Pen, Time: 9:20 AM [facility] 250 DO Work Phone: Start: 01-24-2023 Influenza vaccination Influenz a Vaccine (#1) [facility] Start: 07-12-2022 Screening for osteoporosis Bone Density Scan [facility] Start: 04-22-2022 COVID-19 Vaccine (4 - Pfizer series) COVID-19 Vaccine (4 - Pfizer series) [facility] Start: 03-01-2022 FUV, Provider: Bradly Tanner, Status: Pen, Time: 9:30 AM FUV, Provider: Bradly Tanner, Status: Pen, Time: 9:30 AM [facility] 250 DO Work Phone: Start: 1990 Screening for malign ant neoplasm of breast Mammogram [facility] Start: 02-27-1972 DTaP/Tdap/Td Vaccine s (1 - Tdap) DTaP/Tdap/Td Vaccines (1 - Tdap) [facility] Start: 02-27-1968 Diabetes mellitus screening Diabetes Screening [facility] Start: 02-27-1968 Hepatitis C screening [facility] Start: 1950 Lipid panel Lipid Panel [facility] Start: 1950 Screening for malign ant neoplasm of colon [facility] Start: 1950 Yearly Adult Physical Yearly Adult P hysical [facility] Immunizations Immunization Date Immunization Notes Care Provider Harper storm 03-26-2023 influenza virus vaccine, unspecified formulation Federico FRANCIS [facility] [place] 03-26-2022 Flu vaccine, quadrivalent, high-dose, preservative free, age 65y+ (FLUZONE) Bradly Tanner MD Work Phone: [facility] Work Phone: 03-26-2022 influenza virus vaccine, unspecified formulation Bradly Tanner MD Work Phone: [facility] Work Phone: 02-25-2022 Pfizer COVID-19 Vac Bivalent 30 MCG/0.3ML Intramuscular Suspension Zeny Stanley Work Phone: [facility] 250 DO Work Phone: Comment on above: Series: 05-11-2021 SARS-CoV-2 (COVID-19 ) mRNA BNT-162b2 vax Federico [facility] 03-19-2021 Influenza, Seasonal, Quadrivalent, Adjuvanted Bradly Tanner MD Work Phone: [facility] Work Phone: 08-04-2020 zoster vaccine recombinant Bradly Tanner MD Work Phone: [facility] Work Phone: 07-19-2020 SARS-CoV-2 (COVID-19 ) mRNA BNT-162b2 vax [employer] Comment on above: Result Comment: 2022: TPV70 06-28-2020 SARS-CoV-2 (COVID-19 ) mRNA BNT-162b2 vax [facility] Comment on above: Result Comment: 2022: TPV70 04-11-2020 zoster vaccine recombinant Bradly Tanner MD Work Phone: [facility] Work Phone: 04-21-2019 pneumococcal polysaccharide vaccine, 23 valent Bradly Tanner MD Work Phone: [facility] Work Phone: 03-26-2019 influenza virus vaccine, unspecified formulation Zeny M Lizeth Work Phone: [facility] 250 DO Work Phone: 03-09-2019 influenza, high dose seasonal, preservative-free Bradly Tanner MD Work Phone: [facility] Work Phone: 08-13-2018 pneumococcal polysaccharide vaccine, 23 valent Bradly Tanner MD Work Phone: [facility] Work Phone: 05-26-2018 pneumococcal conjuga te vaccine, 13 valbobby Stanley Work Phone: [facility] 250 DO Work Phone: 04-08-2018 influenza, injectabl e, quadrivalent, preservative free Bradly Tanner MD Work Phone: [facility] Work Phone: 05-26-2017 pneumococcal polysaccharide vaccine, 23 valent Zeny Stanley Work Phone: [facility] 250 DO Work Phone: 04-04-2015 influenza, seasonal, injectable, preservative free Bradly Tanner MD Work Phone: [facility] Work Phone: 04-01-2014 influenza, injectabl e, quadrivalent, contains preservative Bradly Tanner MD Work Phone: [facility] Work Phone: 03-19-2013 influenza, seasonal, injectable Bradly Tanner MD Work Phone: [facility] Work Phone: Payers Date Payer Category Payer Unknown 2015 Medicare MEDICARE MEDICAR E PART A AND B [id number] 2015-Present [address] [place] [address] [id number] 1959 Medicare [id number] 1959 Unknown [id number] 1950 Unknown [id number] 1950 Unknown [id number] [id number] 1950 Unknown [id number] [id number] 1950 Unknown [id number] [id number] 1950 Unknown [id number] [id number] 1950 Unknown [id number] [id number] 1950 Unknown [id number] 2.16.840.1.539974.3.579.2.593 1950 Unknown [id number] 2.16.840.1.516984.3.579.2.593 1950 Unknown [id number] [id number] 1950 Unknown [id number] 2.16.840.1.665921.3.579.2.593 1950 Unknown [id number] [id number] 1950 Unknown [id number] 2.16.840.1.677151.3.579.2.593 1950 Unknown [id number] [id number] 1950 Unknown [id number] [id number] 1950 Unknown [id number] [id number] Social History Date Type Detail Facility Start: 02-28-2023 Alcohol use Alcohol use -[facility] DO Work Phone: Start: 07-23-2021 End: 05-20-2023 Tobacco smoking status Never smoked tobacco (finding) [facility] Tobacco smoking status Never [facility] Start: 02-28-2023 Sex Assigned At Female F [facility] Start: 02-28-2023 Tobacco use and exposure Smokeless tobacco non-user [facility] Work Phone: Start: 02-28-2023 Alcohol intake Ex-drinker (finding) [facility] Work Phone: Start: 1950 [facility] Start: 02-18-2023 End: 02-28-2023 Exposure to SARS-CoV-2 (event) Not sure [facility] Functional Status Date Assessment Result Facility 05-20-2023 Functional Status N/A [facility] Clinical Notes 11-30-2021 to 05-20-2023 Bradly Tanner MD - 02/28/2023 9:20 AM EDTPatient Instructions Note Date & Type Note Facility 05-20-2023 Note Chief Complaint consultation for skin lesion HPI Staff 73 year old female presents on consultation from Dr. Stanley for left ear skin lesion. Patient reports this area was previously excised. History of Present Illness 73 yo female with h/o referred for htn, hypercholesterolemia, arthritis, referred for evaluation of left ear lesion; patient had excision of left ear nodule 6 years ago, pathology with scar/inflammation/keratosis, no suspicious cells; area looks similar now, no pain or change in size, no bleeding or ulceration; no h/o skin cancer; on baby asa, no NSAIDs; no tobacco use. Review of Systems PHQ Score Initial Depression Screen Score: 0 SCORE ROS - Provider Constitutional: no fever, no sweats, no weight loss. Eyes: no glasses, no blurred vision, no visual loss. ENMT: no dentures, no hoarseness, no swallowing difficulties, no hearing loss, no ear infection(s), no nose bleeds. Cardiovascular: normal blood pressure, no chest pain, regular heartbeat, no heart murmur. Respiratory: no shortness of breath, no cough, no asthma, no wheezing. Gastrointestinal: no nausea, no vomiting, no diarrhea, no constipation, no blood in stool, no change in bowel habits, no abdominal pain, no hepatitis. Genitourinary: no kidney stones, no urine infection, no dysuria. Musculoskeletal: no pain, no weakness. Skin: no changing moles, no rash, no skin lumps. Neurologic: no seizures, no epilepsy, no headache. Psychiatric: no emotional or psychiatric problem. Heme/Lymph: no bleeding problems, no anemia, no blood clots, no transfusions. Allergy/Immunologic: no swollen lymph nodes/glands, no IV drug abuse. Other: Additional ROS info: Except as noted in the above Review of Systems and in the History of Present Illness, all other systems have been reviewed and are negative or noncontributory. Physical Exam Vitals & Measurements HR: 72(Peripheral) RR: 16 BP: 128/78 HT: 65 in HT: 165 cm WT: 88.9 kg WT: 195.58 lb BMI: 32.65 skin: left ear with 5 mm round scar, no ulceration or pigmentation change; nontender. Assessment/Plan 1. Cicatrix (L90.5: Scar conditions and fibrosis of skin) left ear; no suspicious features or changes; monitor area; call if increases in size, changes pigmentation, bleeds/ulcerates, or with problems/quesitons. Follow-up No qualifying data available Problem List/Past Medical History Ongoing Arthritis BMI 32.0-32.9,adult Cataracts, bilateral Cicatrix Colon cancer screening Constipation Hypercholesterolemia Hypertension Obesity Osteoporosis Supraventricular tachycardia Venous varices Historical Measles Mumps Procedure/Surgical History Excision of lesion of skin (06/05/2016), Cataract extraction, Dilation and curettage, Stripping of vein, WANDY BSO - Total abdominal hysterectomy and bilateral salpingo-oophorectomy, Tonsillectomy. Medications alprazolam 0.25 mg Tab, 0.25 mg= 1 tab(s), Oral, TID, PRN amitriptyline, 75 mg, Oral, Once a day (at bedtime) aspirin 81 mg Oral EC Tab, 81 mg= 1 tab(s), Oral, Daily Envive oral capsule, See Instructions Fosamax 70 mg oral tablet, 70 mg= 1 tab(s), Oral, qWeek lisinopril 40 mg Tab, 40 mg= 1 tab(s), Oral, Daily Metoprolol tartrate 50 mg Tab, 50 mg= 1 tab(s), Oral, BID MiraLax 3350 Oral Pwdr for Recon 249 gram, 17 gm, Oral, Every other day, 11 refills Multi Vitamin+, 1 tab, Oral, Daily simvastatin, 20 mg, Oral, Once a day (at bedtime) spironolactone 25 mg Tab, 25 mg= 1 tab(s), Oral, Daily Allergies No Known Allergies Social History Alcohol Current, 10/14/2019 Exercise - Occasional exercise, 10/14/2019 Other Caffeine-Tea daily, 10/14/2019 Substance Abuse - Denies Substance Abuse, 10/14/2019 Tobacco Never (less than 100 in lifetime) Tobacco Use:. Never Smokeless Tobacco Use:., 05/20/2023 Family History Carotid artery: Mother. Pancreatitis: Father. Immunizations Vaccine Date Status Comments influenza virus vaccine, inactivated 03/26/2023 Recorded SARS-CoV-2 (COVID-19) [id number] 02/25/2022 Recorded SARS-CoV-2 (COVID-19) mRNA BNT-162b2 vax 05/11/2021 Recorded SARS-CoV-2 (COVID-19) mRNA BNT-162b2 vax 07/19/2020 Recorded 2023-05-09: [id number] SARS-CoV-2 (COVID-19) mRNA BNT-162b2 vax 06/28/2020 Recorded 2023-05-09: TPV70 [facility] Comment on above: Result Comment: Elec tronically Signed By: TITO AUGUSTINE, Federico Chilel\Date and Time Signed: 05/20/23 15:33 EST 02-28-2023 History of Present illness Narrative Subjective Hector Chavez is a 73 y.o. female Chief [...] unspecified hyperlipidemia type documented in this encounter [facility] Work Phone: 02-28-2023 Instructions Nina Stewart LPN [...] up 9 month documented in this encounter [facility] Work Phone: 10-01-2022 Note CONSULTATION CONSULTATION DATE: [...] our patients to inform us about any [id number] medications or herbal remedies/nutritional supplements/alternative remedies. 2. [...] options with their primary care provider. [facility] 07-31-2022 Note PROCEDURE: XR FOOT L T [...] by: ANANTH VALENTINE Date: 2022-07-31 10:34 [facility] 03-20-2022 Note PROCEDURE: XR FOOT L T [...] by: NEPTALI GOODE Date: 2022-03-20 21:30 [facility] 02-19-2022 Note PROCEDURE: XR FOOT L T [...] by: ANANTH VALENTINE Date: 2022-02-19 18:22 [facility] 01-22-2022 Note PROCEDURE: XR FOOT L T [...] by: NEPTALI GOODE Date: 2022-01-22 10:35 [facility] 01-02-2022 Note PROCEDURE: XR FOOT L T [...] by: ANANTH VALENTINE Date: 2022-01-02 16:27 [facility] 12-28-2021 Note PROCEDURE: XR FOOT L T [...] by: NEPTALI GOODE Date: 2021-12-28 07:39 [facility] 11-30-2021 Note PROCEDURE: XR FOOT L T [...] by: NEPTALI GOODE Date: 2021-11-30 08:48 [facility] Evaluation + Plan note No data available for this section [facility] Evaluation note Diagnosis Palpitation- Primary Palpitations Paroxysmal atrial tachycardia Paroxysmal supraventricular tachycardia Premature ventricular contractions Other premature beats Class 1 obesity Primary hypertension Unspecified essential hypertension Hyperlipidemia, unspecified hyperlipidemia type documented in this encounter [facility] Work Phone: History of Present illness Narrative* [...] will see her back in 1 year [facility] Work Phone: History of Present illness Narrative* [...] year plan to repeat her lab work [facility] Work Phone: Hospital Discharge instructions No data available for this section [facility] No data available for this section [facility] Reason for referral (narrative)* Consultation (Routine) - Authorized Specialty Diagnoses / Procedures Referred By Contac t Referred To Contact Cardiology Diagnoses Paroxysmal atrial tachycardia Premature ventricular contractions Procedures Follow Up In Cardiology Bradly Tanner MD [address] [facility] [address], [address] [address] Referral ID Status Reason Start Date Expiration Date V isits Requested Visits Authorized [id number] Authorized 02/28/2023 08/27/2023 1 1 [facility] Work Phone: Summary Purpose Family History No Family History Records FoundUnknown Family Member Name Dates Details Family history [...] section and content) DATE CREATED AUTHOR 03/27/2018 [facility] DATE CREATED AUTHOR AUTHOR'S ORGANIZ ATION 08/13/2019 [facility] DATE CREATED AUTHOR AUTHOR'S ORGANIZ ATION 03/01/2022 [facility] DATE CREATED AUTHOR AUTHOR'S ORGANIZ ATION 03/02/2022 [facility] DATE CREATED AUTHOR AUTHOR'S ORGANIZ ATION 10/10/2022 [facility] DATE CREATED AUTHOR AUTHOR'S ORGANIZ ATION 03/04/2023 [facility] DATE CREATED AUTHOR AUTHOR'S ORGANIZ ATION 05/22/2023 [facility] Reason for Visit (unrecogniz ed section and content) Reason Comments Annual Exam 1yr Care Teams (unrecognized sec tion and content) Crew Supervisor Relationship Specialty Start Date End Date Zeny Stanley MD [address] [place] [address] PCP - General 06/01/19 FOR RECORDS PERTAINING [...] BE BASED ON THE PRIMARY CLINICAL RECORDS. [email or web address] provides no warranty or guarantee of the accuracy or completeness of information in this document.
[2023-06-17 08:34] VITALS: BP 127/85; PULSE 76; RESP 16; TEMP 36; O2SAT 94
[2023-06-17] MEDS: BUPIVACAINE HCL 0.25% PF 25 MG/10 ML VIAL 6 ML INJ (09:29)
[2023-06-17 09:35] VITALS: BP 112/65; BP 130/66; PULSE 69; PULSE 76; RESP 18; O2SAT 94; O2SAT 95
--- NOTE | 2023-06-17 09:49 | P.ON_ITS ---
Date of procedure: 06/17/23 Pre-op diagnosis: Bilateral Knee Osteoarthritis Post-op diagnosis: same as pre-op Procedure: Bilateral Genicular Nerve Block PREOPERATIVE DIAGNOSIS: Pain secondary to knee pain, osteoarthritis, osteoarthrosis/degenerative joint disease. POSTOPERATIVE DIAGNOSIS--the same. SOLUTION USED FOR INJECTION: Marcaine 0.25%. IMMEDIATE COMPLICATIONS: None. PROCEDURE: After informed consent was obtained from the patient, brought to the OR, placed in the supine position. Skin overlying the area was prepped and draped in sterile fashion. Subsequently, a 25 gauge spinal needle was inserted over the inferior medial genicular nerve. Landmarks were identified under fluoroscopy. Needle tip advanced until the desired location was achieved, at which point we ruled out intravascular or intraneural needle tip placement. 1 mL of solution was injected. This procedure was performed in a similar fashion at the superior medial and superior lateral branches of the genicular nerve. Throughout the procedure, no indication of intravascular or intraneural needle t ip placement or injection. Post procedurally, needle removed. Patient tolerated the procedure with no complications, transferred to the recovery room in stable condition. She will be discharged home after meeting criteria. Patient informed to keep a pain diary for the first two hours post procedurally. Anesthesia: Local Surgeon: Vannesa Cummins Condition: stable
== END 2023-06-17 09:48 | disposition home or self-care (01) ==
LOC: SURGOUT 08:02
PROVIDERS: PCP Family Medicine; Visit Provider Anesthesiology Pain Medicine
DX: M17.0 Bilateral primary osteoarthritis of knee (principal)
CPT/HCPCS: 64454; J0665

== ENCOUNTER 2023-07-03 08:54 | Outpatient (OUT) | payer MEDICARE, BC, SELFPAY ==
--- OUTSIDE RECORDS SUMMARY | 2023-07-03 08:59 | XMS_ITS | CCD ---
Author Name Unknown Address [address] [place] [address] Organization [facility] Care Team Providers Care Social Sciences Instructor Name Role Phone JENNIFER LANTIGUAAN Unavailable Unavailab [...] Primary Care Unavaila RAY [employer] Unavailable CRISTINA ROBERTO Attending Unavailable RUPA, DR NEPTALI Eason [...] Care Unavailable Huma Shannon Admitting Unavailable Huma Sahnnon Attending Unavailable Huma Shannon Referring Unavailable Federico [...] 02/28/2023 Discontinued (Reorder) take 2 tablets by [facility] once daily Magnesium Oxide 400 MG Oral [...] Start: 04-10-2021 take 2 tablets by mo [facility] once daily metoprolol succinate XL (Toprol-XL) 50 mg 24 hr tablet Take 2 tablets (100 mg) by mouth once daily. 0 04/10/2021 Active Start: 04-10-2021 take 2 tablets by mo [facility] once daily Metoprolol Succinate ER 50 MG [...] day, # 255 gram, Refills(s) 11, Pharmacy: [facility]/pharmacy #[id number], 165.1, cm, 10/14/19 13:03:00 EDT, [...] Interpretation Reference Range Facility Facesheeton 05-21-2023 Facesheet [id number] Normal [facility] Ambulatory Visit Summaryon 1 07-21-2022 Ambulatory [...] for choosing us for your care. Normal [facility] Physician Referralon 023 Physician Referral [id number] Normal [facility] MA Mamm Screen w/CAD if perf [...] very important to your health. The current [employer] and National Comprehensive Cancer [...] 2-Benign finding Recommendation: Normal interval follow-up Normal [facility] Consent for Treatmenton 09-23 Consent for Treatment [id number]:127 Normal [facility] Physician Orderon 09-23-2022 Physician Order [id number]:127 Normal [facility] Office Visit (Cardiology)on 03-01-2022 Follow-up visit [...] and are (more content not included)... Normal [facility] Tobacco Screening.on Adult depression screening assessment [facility] [employer] 250 DO Work Phone: Fall risk assessment a) No falls within the last year [facility] [employer] 250 DO Work Phone: Tobacco use status [facility] b) No [facility] [employer] 250 DO Work Phone: PROF CHEM 8 (BAS METB)on Anion gap [Moles/Vol] 11.4 mmol/L Normal [facility] Comment on above: Performed By: #### B MP #### [facility] [address] [place] [address] Dr. Octavio Price Calcium [Mass/Vol] 9.1 mg/dL Normal 8.5-10.1 [facility] Comment on above: Performed By: #### B MP #### [facility] [address] [address] [address] Octavio Price Chloride [Moles/Vol] 105 mmol/L Normal 98-107 [facility] Comment on above: Performed By: #### B MP #### [facility] [address] [address] [address] Octavio Price CO2 [Moles/Vol] 30.6 mmol/L Normal 21.0-32.0 [facility] Comment on above: Performed By: #### B MP #### [facility] [address] [address] [address] Octavio Price Creatinine [Mass/Vol] 0.75 mg/dL Normal 0.55-1.02 [facility] Comment on above: Performed By: #### B MP #### [facility] [address] [address] [address] Octavio Price EGFR-AF MARTINIQUAIS >60 Normal >=[address] [facility] Comment on above: Performed By: #### B MP #### [facility] [address] [address] [address] Octavio Price EGFR-NON AF MARTINIQUAIS >60 Normal >=60 [facility] Comment on above: Performed By: #### B MP #### [facility] [address] [address] [address] Octavio Price Glucose [Mass/Vol] 84 mg/dL Normal 74-106 [facility] Comment on above: Performed By: #### B MP #### [facility] [address] [address] [address] Octavio Price Potassium [Moles/Vol] 4.0 mmol/L Normal 3.5-5.1 [facility] Comment on above: Performed By: #### B MP #### [facility] [address] [address] [address] Octavio Price Sodium [Moles/Vol] 143 mmol/L Normal 136-145 [facility] Comment on above: Performed By: #### B MP #### [facility] [address] [address] [address] Octavio Price Urea nitrogen [Mass/Vol] 13.0 mg/dL Normal 7.0-18.0 [facility] Comment on above: Performed By: #### B MP #### [facility] [address] [place] [address] Dr. Octavio Price Urea nitrogen/Creatini ne [Mass ratio] 17.3 mg/mg Normal [facility] Comment on above: Performed By: #### B MP #### [facility] [address] [place] [address] Dr. Octavio Price Tobacco Screening.on 021 Fall risk assessment a) No falls within the last year [facility] 250 DO Work Phone: Heart Rate Normal [facility] 250 DO Work Phone: Tobacco use status [facility] b) No [facility] 250 DO Work Phone: CREATININEon 06-01-2019 Creatinine [Mass/Vol] 0.75 mg/dL Normal 0.50 - 1.05 [facility] Comment on above: Performed By: #### C REAT #### [address] [address] Creatinine [Mass/Vol] mg/dL Normal >60 [facility] Comment on above: Performed By: #### C REAT #### [address] [address] Result Comment: CALC ULATIONS OF ESTIMATED GFR ARE PERFORMED USING THE MDRD STUDY EQUATION FOR THE IDMS-TRACEABLE CREATININE METHODS. CLIN CHEM 2007;53:766-72 ELECTROLYTE PANELon 06-01-19 20 Anion gap [Moles/Vol] 13 mmol/L Normal 10 - 20 [facility] Comment on above: Performed By: #### E LECT #### [address] [address] Chloride [Moles/Vol] 103 mmol/L Normal 98 - 107 [facility] Comment on above: Performed By: #### E LECT #### [address] [address] HCO3 (Bld) [Moles/Vol] 29 mmol/L Normal 21 - 32 [facility] Comment on above: Performed By: #### E LECT #### [address] [address] Potassium [Moles/Vol] 4.0 mmol/L Normal 3.5 - 5.3 [facility] Comment on above: Performed By: #### E LECT #### [address] [address] Sodium [Moles/Vol] 141 mmol/L Normal 136 - 145 [facility] Comment on above: Performed By: #### E LECT #### [facility] [address] [place] [address] UREA NITROGENon 06-01-2019 Urea nitrogen [Mass/Vol] 19 mg/dL Normal 6 - 23 [facility] Comment on above: Performed By: #### U KRUPA #### [facility] [address] [place] [address] CNOVon 02-27-2018 CNOV Office Visit (CARDFT) CLIVECHEPE BECKMANJ BRETT Ryan ([id number]) 1950 FDate Time Provider Mtmwsrhfpl65/5/18 10:30 AM JENNIFER LANTIGUA During your visit today, we recorded the following information about you: Pulse Respiration Blood pressure Weight 64/minute 18/minute 150/81 80.7 kg Height 1.651 Liz Lantigua MD 02/27/2018 10:54 AM [facility] InstituteCambridge [facility] Mariana Guido Department of Cardiovascular MedicineOUTPATIENT VISIT DATE 02/27/18OUTPATIENT VISIT TYPEESTABLISHEDPRIMARY CARE PHYSICIAN:Zeny Stanley MD[address] [facility] [address]Alvaw: [phone]: [phone] COMPLAINT:Patient presents with:Established PatientHISTORY OF PRESENT ILLNESS:Hector [...] provided to the requesting provider by way [facility] or via U.S. Mail.This document was generated utilizing [employer] dictation. I have reviewed andverified that the contents of the document are accurate with the exception ofminor grammatical, spelling and punctuation errors.CONTACT INFORMATION:Thank you for allowing us to participate in the care of this very pleasantpatient. Please free to contact us if we can be of any further assistance.Jennifer Lantigua MD, FACCRobert and Mariana Beauchamppartment of Cardiovascular MedicineSelect Medical Specialty Hospital - Cantonrt and Vascular Institute[address] [address]Fnadoj: [phone] Referring Provider: ZENY STANLEY [[id number]]Allergies As of Date: 02/27/2018(No Known Allergies)Date Reviewed: [...] by DYANA LANTIGUA MD on 02/27/18 Normal [facility] PROGRESSon 02-27-2018 Protein mass conc HNO ID: [id number] thor: Jennifer Hoganervice: (none)Author Type: PhysicianType: Progress NotesFiled: 02/27/2018 10:54 AMNote Text:[facility] Department of Cardiovascular MedicineOUTPATIENT VISIT DATE 02/27/18OUTPATIENT VISIT TYPEESTABLNOVANT HEALTH BRUNSWICK [facility]ENTERPR[facility] CARE PHYSICIAN:Zeny Stanley MD[address] [facility] [address]Xcyyl: [phone]: [phone] COMPLAINT:Patient presents with:Established PatientHISTORY OF PRESENT ILLNESS:Hector [...] provided to the requesting provider by way ofshchrist[facility] alice medical record or via U.S. Mail.This document was generated utilizing [employer] dictation. I have reviewedand verified that the contents of the document are accurate with theexception of minor grammatical, spelling and punctuation errors.CONTACT INFORMATION:Thank you for allowing us to participate in the care of this very pleasantpatient. Please free to contact us if we can be of any furtherassistance.Jennifer Lantigua MD, FACCRobert and Mariana GeDcpartment of Cardiovascular MedicineSelect Medical Specialty Hospital - Cantonrt and Vascular InstituteCrystal Clinic Orthopedic Center[address], [place] [address]Cxoyja: [phone] Normal [facility] Vital Signs Date Time Vital Sign Value Performing Clinician Facility 05-20-2023 15:09-0500 Blood Pressure Location Federico MCINTOSHVarinder [facility] [place] 05-20-2023 15:09-0500 Diastolic blood pressure 78 mm[Hg] Federico FRANCIS [facility] [place] 05-20-2023 15:09-0500 Heart rate 72 /min Federico FRANCIS [facility] [place] 05-20-2023 15:09-0500 Respiratory rate 16 /min Federico TITO [facility] [place] 05-20-2023 15:09-0500 Systolic blood pressure 128 mm[Hg] Federioc FRANCIS [facility] [place] 02-28-2023 09:40-0400 Body height 165.1 cm Bradly Tanner MD Work Phone: [facility] 02-28-2023 09:40-0400 Body mass index (BMI) [Ratio] 31.85 kg/m2 Bradly Tanner MD Work Phone: [facility] 02-28-2023 09:40-0400 Body weight 86.82 kg Bradly Tanner MD Work Phone: [facility] 02-28-2023 09:40-0400 Diastolic blood pressure 70 mm[Hg] Bradly Tanenr MD Work Phone: [facility] 02-28-2023 09:40-0400 Heart rate 72 /min Bradly Tanner MD Work Phone: [facility] 02-28-2023 09:40-0400 Systolic blood pressure 120 mm[Hg] Bradly Tanner MD Work Phone: [facility] 03-01-2022 09:41-0400 Body height 165.1 cm Zeny Stanley Work Phone: [facility] 250 DO Work Phone: 03-01-2022 09:41-0400 Body mass index (BMI) [Ratio] 31.78 kg/m2 Zeny M Hoy Work Phone: [facility] 250 DO Work Phone: 03-01-2022 09:41-0400 Body surface area Derived from formula 1.94 m2 Zeny M Hoy Work Phone: [facility] 250 DO Work Phone: 03-01-2022 09:41-0400 Body weight 86.64 kg Zeny M Hoy Work Phone: [facility] 250 DO Work Phone: 03-01-2022 09:41-0400 Diastolic blood pressure 80 mm[Hg] Zeny M Hoy Work Phone: [facility] 250 DO Work Phone: 03-01-2022 09:41-0400 Heart rate 69 /min Zeny M Hoy Work Phone: [facility] 250 DO Work Phone: 03-01-2022 09:41-0400 Systolic blood pressure 130 mm[Hg] Zeny M Hoy Work Phone: [facility] 250 DO Work Phone: 02-23-2021 09:42-0400 Body height 165.1 cm Zeny M Hoy Work Phone: [facility] 250 DO Work Phone: 02-23-2021 09:42-0400 Body mass index (BMI) [Ratio] 31.62 kg/m2 Zeny M Hoy Work Phone: [facility] 250 DO Work Phone: 02-23-2021 09:42-0400 Body surface area Derived from formula 1.94 m2 Zeny M Hoy Work Phone: [facility] 250 DO Work Phone: 02-23-2021 09:42-0400 Body weight 86.18 kg Zeny Stanley Work Phone: [facility] 250 DO Work Phone: 02-23-2021 09:42-0400 Diastolic blood pressure 82 mm[Hg] Zeny Stanley Work Phone: [facility] 250 DO Work Phone: 02-23-2021 09:42-0400 Heart rate 62 /min Zeny Stanley Work Phone: [facility] 250 DO Work Phone: 02-23-2021 09:42-0400 Systolic blood pressure 126 mm[Hg] Zeny Stanley Work Phone: [facility] 250 DO Work Phone: Encounters Encounter Date Encounter Type Care Provider Facility Start: 05-20-2023 End: 05-21-2023 ambulatory Federico FRANCIS Facility:[facility] Start: 05-20-2023 End: 05-20-2023 Patient encounter procedure Federico FRANCIS [facility] Start: 05-05-2023 ambulatory Huma Shannon Facility:[facility] Start: 02-28-2023 End: 02-28-2023 ambulatory [facility] Ambulatory Start: 02-28-2023 End: 02-28-2023 Office outpatient visit 15 minutes Bradly Tanner MD Work Phone: [facility] Comment on above: Palpitation (Primary Dx); Paroxysmal atrial tachycardia; Premature ventricular contractions; Class 1 obesity; Primary hypertension; Hyperlipidemia, unspecified hyperlipidemia type Start: 10-31-2022 ambulatory SHANE FINNEY . Facili ty:[facility] Start: 10-15-[address] ZENY STANLEY . Facili ty:[facility] Start: 10-08-2022 End: 10-09-2022 ambulatory Huma Shannon Facility:[facility] Start: 10-01-2022 End: 10-02-2022 ambulatory ANA ESTRADADARLENENELLYQuiana . Facility:[facility] Start: 07-31-2022 End: 08-01-2022 ambulatory RAY WEINSTEIN Facility:[facility] Start: 03-20-2022 End: 03-21-2022 ambulatory RAY Pelayo [facility] Facility:[facility] Start: 03-08-2022 Rx Renewal Zeny Stanley Work Phone: [facility] 250 DO Work Phone: Start: 03-01-[address] Bradly Tanner Facility: Start: 03-01-2022 Office outpatient vi sit 15 minutes Zeny Stanley Work Phone: [facility] 250 DO Work Phone: Start: 02-19-2022 [...] End: 10-04-2021 Patient encounter procedure Huma Shannon [facility] Start: 02-23-2021 Patient encounter procedure Zeny Stanley Work Phone: [facility] 250 DO Work Phone: Start: 02-27-2018 End: 03-13-2018 Patient encounter JENNIFER LANTIGUA [facility] Procedures Date Procedure Procedure Detail Performing [...] Screening for malign ant neoplasm of colon [facility] Start: 03-19-2024 End: 03-19-2024 Patient encounter procedure 03/19/2024 10:20 AM EDT Office Visit [facility] [address] [address] Bradly Tanner MD [address] [facility] [address], [address] [address] [facility] Start: 02-28-2023 FUV, Provider: Bradly Tanner, Status: Pen, Time: 9:20 AM FUV, Provider: Bradly Tanner, Status: Pen, Time: 9:20 AM [facility] 250 DO Work Phone: Start: 01-24-2023 Influenza vaccination Influenz a Vaccine (#1) [facility] Start: 07-12-2022 Screening for osteoporosis Bone Density Scan [facility] Start: 04-22-2022 COVID-19 Vaccine (4 - Pfizer series) COVID-19 Vaccine (4 - Pfizer series) [facility] Start: 03-01-2022 FUV, Provider: Bradly Tanner, Status: Pen, Time: 9:30 AM FUV, Provider: Bradly Tanner, Status: Pen, Time: 9:30 AM [facility] [employer] 250 DO Work Phone: Start: 1990 Screening for malign ant neoplasm of breast Mammogram [facility] Start: 02-27-1972 DTaP/Tdap/Td Vaccine s (1 - Tdap) DTaP/Tdap/Td Vaccines (1 - Tdap) [facility] Start: 02-27-1968 Diabetes mellitus screening Diabetes Screening [facility] Start: 02-27-1968 Hepatitis C screening Hepatitis C Sc [facility] Start: [address] Lip[address]id Panel [facility] Start: 1950 Screening for malign ant neoplasm of colon [facility] Start: 1950 Yearly Adult Physical Yearly Adult P hysical [facility] Immunizations Immunization Date Immunization Notes Care Provider Harper storm 03-26-2023 influenza virus vaccine, unspecified formulation Federico FRANCIS [facility] [place] 03-26-2022 Flu vaccine, quadrivalent, high-dose, preservative free, age 65y+ (FLUZONE) Bradly Tanner MD Work Phone: [facility] Work Phone: 03-26-2022 influenza virus vaccine, unspecified formulation Bradly Tanner MD Work Phone: [facility] Work Phone: 02-25-2022 Pfizer COVID-19 Vac Bivalent 30 MCG/0.3ML Intramuscular Suspension Zeny Stanley Work Phone: [facility] 250 DO Work Phone: Comment on above: Series: 05-11-2021 SARS-CoV-2 (COVID-19 ) mRNA BNT-162b2 vax Federico [employer] [facility] 03-19-2021 Influenza, Seasonal, Quadrivalent, Adjuvanted Bradly Tanner MD Work Phone: [facility] Work Phone: 08-04-2020 zoster vaccine recombinant Bradly Tanner MD Work Phone: [facility] Work Phone: 07-19-2020 SARS-CoV-2 (COVID-19 ) mRNA BNT-162b2 vax [employer] [facility] Comment on above: Result Comment: 2022: [id number] 06-28-2020 SARS-CoV-2 (COVID-19 ) mRNA BNT-162b2 vax [employer] [facility] Comment on above: Result Comment: 2022: TPV70 04-11-2020 zoster vaccine recombinant Braldy Tanner MD Work Phone: [facility] Work Phone: 04-21-2019 pneumococcal polysaccharide vaccine, 23 valent Bradly Tanner MD Work Phone: [facility] Work Phone: 03-26-2019 influenza virus vaccine, unspecified formulation Zeny M Lizeth Work Phone: [facility] 250 DO Work Phone: 03-09-2019 influenza, high dose seasonal, preservative-free Bradly Tanner MD Work Phone: [facility] Work Phone: 08-13-2018 pneumococcal polysaccharide vaccine, 23 valent Bradly Tanner MD Work Phone: [facility] Work Phone: 05-26-2018 pneumococcal conjuga te vaccine, 13 valbobby Stanley Work Phone: [facility] 250 DO Work Phone: 04-08-2018 influenza, injectabl e, quadrivalent, preservative free Bradly Tanner MD Work Phone: [facility] Work Phone: 05-26-2017 pneumococcal polysaccharide vaccine, 23 valent Zeny Stanley Work Phone: [facility] 250 DO Work Phone: 04-04-2015 influenza, seasonal, injectable, preservative free Bradly Tanner MD Work Phone: [facility] Work Phone: 04-01-2014 influenza, injectabl e, quadrivalent, contains preservative Bradly Tanner MD Work Phone: [facility] Work Phone: 03-19-2013 influenza, seasonal, injectable Bradly Tanner MD Work Phone: [facility] Work Phone: Payers Date Payer Category Payer Unknown 2015 Medicare MEDICARE MEDICAR E PART A AND B [id number] 2015-Present [address] [place] [address] [id number] 1959 Medicare [id number] 1959 Unknown [id number] 1950 Unknown [id number] 1950 Unknown [id number] [id number] 1950 Unknown [id number] [id number] 1950 Unknown [id number] [id number] 1950 Unknown [id number] [id number] 1950 Unknown [id number] [id number] 1950 Unknown [id number] [id number] 1950 Unknown [id number] [id number] 1950 Unknown [id number] 2.16.840.1.083316.3.579.2.593 1950 Unknown [id number] 2.16.840.1.394436.3.579.2.593 1950 Unknown [id number] [id number] 1950 Unknown [id number] [id number] 1950 Unknown [id number] [id number] 1950 Unknown [id number] [id number] 1950 Unknown [id number] Social History Date Type Detail Facility Start: 02-28-2023 Alcohol use Alcohol use -[facility] 250 DO Work Phone: Start: 07-23-2021 End: 05-20-2023 Tobacco smoking status Never smoked tobacco (finding) [facility] Tobacco smoking status Never [facility] Start: 02-28-2023 Sex Assigned At Female F [facility] Start: 02-28-2023 Tobacco use and exposure Smokeless tobacco non-user [facility] Work Phone: Start: 02-28-2023 Alcohol intake Ex-drinker (finding) [facility] Work Phone: Start: 1950 [facility] Start: 02-18-2023 End: 02-28-2023 Exposure to SARS-CoV-2 (event) Not sure [facility] Functional Status Date Assessment Result Facility 05-20-2023 [...] virus vaccine, inactivated 03/26/2023 Recorded SARS-CoV-2 (COVID-19) [id number] 02/25/2022 Recorded SARS-CoV-2 (COVID-19) mRNA BNT-162b2 vax 05/11/2021 Recorded SARS-CoV-2 (COVID-19) mRNA BNT-162b2 vax 07/19/2020 Recorded 2023-05-09: [id number] SARS-CoV-2 (COVID-19) mRNA BNT-162b2 vax 06/28/2020 Recorded 2023-05-09: [id number] [facility] Comment on above: Result Comment: Elec [...] unspecified hyperlipidemia type documented in this encounter [facility] Work Phone: 02-28-2023 Instructions Nina Stewart LPN [...] up 9 month documented in this encounter [facility] Work Phone: 10-01-2022 Note CONSULTATION CONSULTATION DATE: [...] our patients to inform us about any egdl-qbc-vuygzea medications or herbal remedies/nutritional supplements/alternative remedies. 2. [...] options with their primary care provider. [facility] 07-31-2022 Note PROCEDURE: XR FOOT L [...] by: ANANTH VALENTINE Date: 2022-07-31 10:34 [facility] 03-20-2022 Note PROCEDURE: XR FOOT L [...] by: NEPTALI GOODE Date: 2022-03-20 21:30 [facility] 02-19-2022 Note PROCEDURE: XR FOOT L [...] by: ANANTH VALENTINE Date: 2022-02-19 18:22 [facility] 01-22-2022 Note PROCEDURE: XR FOOT L [...] by: NEPTALI GOODE Date: 2022-01-22 10:35 [facility] 01-02-2022 Note PROCEDURE: XR FOOT L [...] by: ANANTH VALENTINE Date: 2022-01-02 16:27 [facility] 12-28-2021 Note PROCEDURE: XR FOOT L [...] by: NEPTALI GOODE Date: 2021-12-28 07:39 [facility] 11-30-2021 Note PROCEDURE: XR FOOT L [...] by: NEPTALI GOODE Date: 2021-11-30 08:48 [facility] Evaluation + Plan note No data available for this section [facility] Evaluation note Diagnosis Palpitation- Primary Palpitations Paroxysmal atrial tachycardia Paroxysmal supraventricular tachycardia Premature ventricular contractions Other premature beats Class 1 obesity Primary hypertension Unspecified essential hypertension Hyperlipidemia, unspecified hyperlipidemia type documented in this encounter [facility] Work Phone: History of Present illness Narrative* [...] will see her back in 1 year [facility] Work Phone: History of Present illness Narrative* [...] year plan to repeat her lab work [facility] Work Phone: Hospital Discharge instructions No data available for this section [facility] No data available for this section General Surgery [place] Reason for referral (narrative)* Consultation (Routine) - Authorized Specialty Diagnoses / Procedures Referred By Contac t Referred To Contact Cardiology Diagnoses Paroxysmal atrial tachycardia Premature ventricular contractions Procedures Follow Up In Cardiology Bradly Tanner MD [address] [facility] [address], [address] [address] Referral ID Status Reason Start Date Expiration Date V isits Requested Visits Authorized [id number] Authorized 02/28/2023 08/27/[address] [facility] Work Phone: Summary Purpose Family History No [...] section and content) DATE CREATED AUTHOR 03/27/2018 [facility] DATE CREATED AUTHOR AUTHOR'S ORGANIZ ATION 08/13/2019 [facility] DATE CREATED AUTHOR AUTHOR'S ORGANIZ ATION 03/01/2022 [facility] DATE CREATED AUTHOR AUTHOR'S ORGANIZ ATION 03/02/2022 [facility] DATE CREATED AUTHOR AUTHOR'S ORGANIZ ATION 10/10/2022 [facility] DATE CREATED AUTHOR AUTHOR'S ORGANIZ ATION 03/04/2023 [facility] DATE CREATED AUTHOR AUTHOR'S ORGANIZ ATION 05/22/2023 [facility] Reason for Visit (unrecogniz ed section and content) Reason Comments Annual Exam 1yr Care Teams (unrecognized sec tion and content) Social Sciences Instructor Relationship Specialty Start Date End Date Zeny Stanley MD [address] [facility] [place] [address] PCP - General 06/01/19 FOR RECORDS PERTAINING [...] BE BASED ON THE PRIMARY CLINICAL RECORDS. [employer] provides no warranty or guarantee of the accuracy or completeness of information in this document.
--- NOTE | 2023-07-03 09:17 | P.CN_ITS ---
Consult Note: HPI Data of Consult Patient: known to practice within the last 3 years Requesting Physician: Flori Ott NP Primary Care Provider: Familia Stanley MD Consult Narrative Reason for consult: injection f/u Narrative: Kay evans pleasant 73 year old female presents for evaluation and management of chronic knee pain. Today pain 3/10 with ambulation. patient feels weakness greater in left knee than right knee. Recent bilateral genicular nerve block with no improvement in pain or functional ability cc:: CC: lFori Ott NP Review of Systems 2 ROS0 Status of ROS 10 or more systems reviewed and unremark able except as noted in history and below Musculoskeletal Reports: joint pain PFSH PFSH Medical History (Updated 04/22/23 @ 13:28 by Erum Burnham) Irregular heart beat ?I49.9 - Cardiac arrhythmia, unspecified (ICD-10) Hypercholesterolemia ?E78.00 - Pure hypercholesterolemia, unspecified (ICD-10) Osteoarthritis ?M19.90 - Unspecified osteoarthritis, unspecified site (ICD-10) Hypertension ?I10 - Essential (primary) hypertension (ICD-10) Surgical History H/O vein stripping ?Z98.890 - Other specified postprocedural states (ICD-10) H/O: hysterectomy ?Z90.710 - Acquired absence of both cervix and uterus (ICD-10) Hx of tonsillectomy ?Z90.89 - Acquired absence of other organs (ICD-10) Hx of cataract surgery ?Z98.49 - Cataract extraction status, unspecified eye (ICD-10) Hx of appendectomy ?Z90.49 - Acquired absence of other specified parts of digestive tract (ICD- 10) Meds Home Medications and Allergies Home Medications Medication Instructions Recorded Confirmed Type alendronate 70 mg tablet (Fosamax) 70 mg PO QWEEK 10/31/22 06/17/23 History amitriptyline 75 mg tablet 75 mg PO DAILY 10/31/22 06/17/23 History calcium carbonate 600 mg calcium 600 mg PO BID 10/31/22 06/17/23 History (1,500 mg) tablet (Calcium) metoprolol tartrate 50 mg tablet 50 mg PO BID 10/31/22 06/17/23 History multivitamin 1 tab PO DAILY 10/31/22 06/17/23 History simvastatin 20 mg tablet 20 mg PO DAILY 10/31/22 06/17/23 History spironolactone 25 mg tablet 25 mg PO DAILY 10/31/22 06/17/23 History lisinopril 5 mg tablet 5 mg PO DAILY 06/17/23 06/17/23 History Allergies Allergy/AdvReac Type Severity Reaction Status Date / Time No Known Drug Allergies Allergy Verified 06/17/23 08:41 Exam Constitutional Documenting provider has reviewed patient's vital signs: yes Common normals: no apparent distress, oriented x3, healthy appearing, alert and well nourished General appearance: cooperative HENMT Common normals: normocephalic, hearing grossly normal bilaterally and moist oral mucous membranes Head and scalp: normocephalic Eye Common normals: PERRL Pupil: PERRL Neck & C-Spine Common normals: full ROM General: normal visual inspection Chest Common normals: inspection of chest normal Respiratory Common normals: normal respiratory effort, no retractions and no use of accessory muscles Extremity Right lower extremity: knee joint Left lower extremity: knee joint Other: right and left knee enlarged diameter positive lateral stress testing and crepitus to bilateral knee no redness edema present patient reports most of her pain on areas noted below Extremity image (front): 2 1. 2. Neuro Common normals: oriented x3, CN's II-XII intact bilaterally, moves all extremities, no focal motor deficits, no sensory deficits noted and deep tendon reflexes 2+ bilaterally Sensorium/orientation: alert Motor exam: strength 5/5 throughout and no movement abnormalities noted Psych Common normals: mental status grossly normal, thought process normal, cooperative, affect normal, speech normal and activity/motor behavior normal Speech: normal speech Thought process: normal thought process Assessment and Plan Assessment and Plan (1) Left knee pain: (2) Right knee pain: (3) Knee osteoarthritis: Plan mild to moderate relief from gel injections, will repeat in the future no relief from bilateral genicular nerve block, patient still not interested in knee surgery for OA offered referral to Dr Aburto for evaluation of qaudriceps tendon insertion site pain on exam, declining at this time f/u as needed
== END 2023-07-03 08:55 | disposition home or self-care (01) ==
LOC: PM 08:55
PROVIDERS: PCP Family Medicine; Visit Provider Nurse Practitioner
DX: M25.561 Pain in right knee (principal); M25.562 Pain in left knee; M17.0 Bilateral primary osteoarthritis of knee
CPT/HCPCS: G0463

== ENCOUNTER 2023-09-24 13:05 | Outpatient (OUT) | payer MEDICARE, BC, SELFPAY ==
--- NOTE | 2023-09-24 13:28 | P.CN_ITS ---
Consult Note: HPI Data of Consult Patient: known to practice within the last 3 years Requesting Physician: Flori Ott NP Primary Care Provider: Familia Stanley MD Consult Narrative Reason for consult: injection f/u Narrative: Kay evnas pleasant 73 year old female presents for evaluation and management of chronic bilateral knee pain. Today pain 6-7/10 with ambulation. patient feels weakness greater in left knee than right knee. In the past failed genicular nerve block. >50% improvement in knee pain greater than 3 months from prior gel injections but left knee has worn off. Patient noticing increase in pain with stairs, activity, weather changes, improved with sitting, wearing her brace. cc:: CC: Flori Ott NP Review of Systems 2 ROS0 Status of ROS 10 or more systems reviewed and unremark able except as noted in history and below Musculoskeletal Reports: joint pain PFSH PFSH Medical History Irregular heart beat ?I49.9 - Cardiac arrhythmia, unspecified (ICD-10) Hypercholesterolemia ?E78.00 - Pure hypercholesterolemia, unspecified (ICD-10) Osteoarthritis ?M19.90 - Unspecified osteoarthritis, unspecified site (ICD-10) Hypertension ?I10 - Essential (primary) hypertension (ICD-10) Surgical History H/O vein stripping ?Z98.890 - Other specified postprocedural states (ICD-10) H/O: hysterectomy ?Z90.710 - Acquired absence of both cervix and uterus (ICD-10) Hx of tonsillectomy ?Z90.89 - Acquired absence of other organs (ICD-10) Hx of cataract surgery ?Z98.49 - Cataract extraction status, unspecified eye (ICD-10) Hx of appendectomy ?Z90.49 - Acquired absence of other specified parts of digestive tract (ICD- 10) Meds Home Medications and Allergies Home Medications ?Medication ?Instructions ?Recorded ?Confirmed ?Type alendronate 70 mg tablet (Fosamax) 70 mg PO QWEEK 10/31/22 06/17/23 History amitriptyline 75 mg tablet 75 mg PO DAILY 10/31/22 06/17/23 History calcium carbonate (Calcium 600) 600 mg PO BID 10/31/22 06/17/23 History metoprolol tartrate 50 mg tablet 50 mg PO BID 10/31/22 06/17/23 History multivitamin 1 tab PO DAILY 10/31/22 06/17/23 History simvastatin 20 mg tablet 20 mg PO DAILY 10/31/22 06/17/23 History spironolactone 25 mg tablet 25 mg PO DAILY 10/31/22 06/17/23 History lisinopril 5 mg tablet 5 mg PO DAILY 06/17/23 06/17/23 History Allergies Allergy/AdvReac Type Severity Reaction Status Date / Time No Known Drug Allergies Allergy Verified 06/17/23 08:41 Exam Constitutional Documenting provider has reviewed patient's vital signs: yes Common normals: no apparent distress, oriented x3, healthy appearing, alert and well nourished General appearance: cooperative HENMT Common normals: normocephalic, hearing grossly normal bilaterally and moist oral mucous membranes Head and scalp: normocephalic Eye Common normals: PERRL Pupil: PERRL Neck & C-Spine Common normals: full ROM General: normal visual inspection Chest Common normals: inspection of chest normal Respiratory Common normals: normal respiratory effort, no retractions and no use of accessory muscles Extremity Right lower extremity: knee joint Left lower extremity: knee joint Other: right and left knee enlarged diameter positive lateral stress testing and crepitus to bilateral knee no redness edema present patient reports most of her pain on areas noted below Extremity image (front): 2 1. 2. Neuro Common normals: oriented x3, CN's II-XII intact bilaterally, moves all extremities, no focal motor deficits, no sensory deficits noted and deep tendon reflexes 2+ bilaterally Sensorium/orientation: alert Motor exam: strength 5/5 throughout and no movement abnormalities noted Psych Common normals: mental status grossly normal, thought process normal, cooperative, affect normal, speech normal and activity/motor behavior normal Speech: normal speech Thought process: normal thought process Results Additional Findings Additional findings: If on a controlled substance or opioids, I have checked an [place] report on this patient and there are no aberrancies noted in the prescribing history.??If on a controlled substance or opioid a drug screen was completed and reviewed within the last year, and if there has not been a drug screen completed we ordered one today to monitor higher risk, state monitored pain medication use. As part of providing excellent, safe, comprehensive care, the following was completed at our patient's visit: 1. A medication reconciliation and review to ensure accurate knowledge of current/active medications, including asking our patients to inform us about any [id number] medications or herbal remedies/nutritional supplements/alternative remedies. 2. A review to specifically ensure our patients have had annual screening for screening for depression, screening for tobacco use, and screening for unhealthy alcohol use. For concerning screenings had a discussion with the patient, provided patient education, and recommended follow-up with primary care provider when appropriate. If patient noted with a risk of falling, they received education on strength, gait, and balance training to prevent future risk of falling. Assessment and Plan Assessment and Plan (1) Osteoarthritis of left knee: Assessment and Plan: previous gel injection provided >50% improvement in pain greater than 3 months, would like to repeat (2) Left knee pain: (3) Right knee pain: Assessment and Plan: >50% improvement in pain from prior injection (4) Knee osteoarthritis: Plan left knee gel injection in OR under fluoroscopy with Dr Cummins declining zynex brace no relief from bilateral genicular nerve block, patient still not interested in knee surgery for OA. offered referral to Dr Aburto for evaluation of qaudriceps tendon insertion site pain on exam, declining at this time f/u 2 weeks after injection
== END 2023-09-24 13:06 | disposition home or self-care (01) ==
LOC: PM 13:06
PROVIDERS: PCP Family Medicine; Visit Provider Nurse Practitioner
DX: M17.12 Unilateral primary osteoarthritis, left knee (principal); M25.562 Pain in left knee; M25.561 Pain in right knee
CPT/HCPCS: G0463

== ENCOUNTER 2023-10-14 08:01 | Day surgery (SDC) | payer MEDICARE, BC, SELFPAY ==
[2023-10-14 08:18] VITALS: BP 116/73; PULSE 82; TEMP 36.2; O2SAT 98
--- OUTSIDE RECORDS SUMMARY | 2023-10-14 08:22 | XMS_ITS | CCD ---
Author Organization [facility] Care Team Providers Care Spark Plug Assembler Name Role Phone JENNIFER LANTIGUA Unavailable Unavailab ZENY Guzmán Unavailable Unavailable Zeny Stanley Unavailable Unavailable Unavailable Zeny Stanley Primary Care Physician Ciro, Dr. Abdullahi Referring Unavaila ezio Tanner, Dr. Abdullahi Attending Unavaila Zeny Agarwal Primary Care Unavailable SHARMIN .SHANE Attending Unavailable HALALLI .SHANE Admitting Unavailable LIZETH ., DR MOURA Primary Care Unavailable LIZETH ., DR MOURA Primary Care Unavailable REMI ., ANA Attending Toma vailable REMI ., ANA Admitting Toma vailable WEST, DR ANANTH Danielson Consulting Unavailable RAY WEINSTEIN [...] REQUEST, NONE LISTED Primary Care Unavaila ezio GOODE, DR NEPTALI Eason Consulting Unavailable HIGHLANDER, RAY Pelayo Consulting Unavailable TRABOULSSI, DR ABDULLAHI Consulting Unavailab le TRABOULSSI, DR ABDULLAHI Attending Unavailab le TRABOULSSI, DR ABDULLAHI Admitting Unavailab le REQUEST, DR NONE LISTED Primary Care Unavaila ble WEST, DR ANANTH Danielson Consulting Unavailable REQUEST, DR NONE LISTED Primary Care Unavaila ble PARDEEP, CRISTIAN Admitting Unavailable PARDEEP, CRISTIAN Attending Unavailable PARDEEP, CRISTIAN Consulting Unavailable PARDEEP, CRISTIAN Attending Unavailable RUPA, DR NEPTALI Eason Consulting Unavailable PARDEEP, CRISTIAN Admitting Unavailable REQUEST, NONE LISTED Primary Care Unavaila ble PARDEEP, CRISTIAN Consulting Unavailable LAKSHMIPATHY ., NARENDRANATH Admitting Toma vailable LAKSHMIPATHY ., NARENDRANATH Consulting Toma vailable LAKSHMIPATHY ., NARENDRANATH Attending Toma vailable MISC, DR KOLB Primary Care Unavailable Lizeth AUGUSTINE, Zeny Caballero Primary Care Provider BRADLY TANNER Attending Unavailable ZENY STANLEY Primary Care Unavailable Prideesa Chito Admitting Unavailable ShivaHuma berry Attending Unavailable Huma Shannon Referring Unavailable Federico FRANCIS Attending Unavailable Zeny Stanley Referring Unavailable Huma Shannon Admitting Unavailable ShivaHuma Attending Unavailable Prideesa Chito Referring Unavailable Medications Current Medications Medication Drug Class(es) Dates Sig (Normalized) Sig (Original) alendronic acid 70 mg oral tablet (7 sources) Bisphosphonate Start: 06-16-2018 take 1 tablet by mouth every week Fosamax 70 mg oral tablet 70 mg = 1 tab(s), Oral, qWeek, Refills(s) 0, Prophylaxis Start Date: 06/16/18 Status: Ordered alendronate (Fos amax) 70 mg tablet Take 1 tablet (70 mg) by mouth every 7 days. 0 Active ALPRAZolam 0.25 mg oral tablet (6 sources) Benzodiazepine Start: 05-09-2023 take 1 tablet [...] Active amitriptyline hydrochloride 75 mg oral tablet (7 sources) Tricyclic Antidepressant Start: 06-17-2018 take 75 mg by mouth once daily at bedtime amitriptyline 75 mg, Oral, Once a day (at bedtime), Refills(s) 0, Anxiety Start Date: 06/17/18 Status: Ordered aspirin 81 mg delayed release oral tablet (3 sources) Platelet Aggregation Inhibitor, Nonsteroidal Anti-inflammatory Drug [...] Date: 10/14/19 Status: Ordered Envive oral capsule (3 sources) Start: 07-24-2021 take 8 capsules by mouth once Envive oral capsule See Instructions, 8 cap(s), Refill(s) 0, samples given to patient (Rx), Per physician's instructions. Start Date: 07/24/21 Status: Ordered lisinopril 40 mg oral tablet (7 sources) Angiotensin Converting Enzyme Inhibitor Start: 05-09-2023 take 1 tablet by mouth once daily lisinopril 40 mg Tab 40 mg = 1 tab(s), Oral, Daily, Refills(s) 0 Start Date: 05/09/23 Status: Ordered Start: 06-24-2022 take 1 tablet by katja th once [...] 02/28/2023 Discontinued (Reorder) take 2 tablets by [facility] once daily Magnesium Oxide 400 MG Oral Tablet TAKE 2 TABLET Daily Quantity: 180 Refills: 3 Ordered: 01-Mar-2022 Ciro AUGUSTINE, Bradly Active metoprolol tartrate 50 mg oral tablet (9 sources) beta-Adrenergic Ismael Start: 05-09-2023 take 1 tablet by mouth twice daily Metoprolol tartrate 50 mg Tab 50 mg = 1 tab(s), Oral, BID, Refills(s) 0 Start Date: 05/09/23 Status: Ordered Start: 04-10-2021 take 2 tablets by mo [facility] once daily metoprolol succinate XL (Toprol-XL) 50 mg 24 hr tablet Take 2 tablets (100 mg) by mouth once daily. 0 04/10/2021 Active Start: 04-10-2021 take 2 tablets by [facility] once daily Metoprolol Succinate ER 50 [...] 3350 Oral Pwdr for Recon 249 gram (3 sources) Start: 10-14-2019 MiraLax 3350 Oral Pwdr for Recon 249 gram 17 gram, Oral, Every other day, # 255 gram, Refills(s) 11, Pharmacy: [facility]/pharmacy #[id number], 165.1, cm, 10/14/19 13:03:00 EDT, Height/Length Measured, 83.7, kg, 10/14/19 13:03:00 EDT, Weight Measured Start Date: 10/14/19 Status: Ordered Multi Vitamin+ (3 sources) Start: 06-16-2018 take 1 tablet by mouth once daily Multi Vitamin+ 1 tab, Oral, Daily, Refill(s) 0, Prophylaxis Start Date: 06/16/18 Status: Ordered simvastatin 20 mg oral tablet (7 sources) HMG-CoA Reductase Inhibitor Start: 06-17-2018 take 20 mg by mouth once daily at bedtime simvastatin 20 mg, Oral, Once a day (at bedtime), Refills(s) 0, High cholesterol Start Date: 06/17/18 Status: Ordered spironolactone 25 mg oral tablet (7 sources) Aldosterone Antagonist Start: 05-09-2023 take 1 [...] Date Documented Da te Episodic/Chronic Cardiac dysrhythmias (15 sources) Ventricular premature beats; Translations: [Other premature beats] Onset: 2 02-28-2023 Chronic Cardiac dysrhythmias (8 sources) Palpitations; Translations: [Palpitations] Onset: 2 02-28-2023 Episodic Cataract (3 sources) Bilateral cataracts 10-14-2019 Chronic Disorders of lipid metabolism (13 sources) Hyperlipidemia; Translations: [Other and unspecified hyperlipidemia] Onset: 2 Chronic Essential hypertension (9 sources) Hypertensive disorder; Translations: [Unspecified essential hypertension] Onset: 3 10-14-2019 Chronic Fracture of lower limb (11 sources) Stress fracture, left foot, subsequent encounter for fracture with nonunion; Translations: [Displaced fracture of fifth metatarsal bone, left foot, subsequent encounter for fracture with routine healing] Onset: 2 Episodic Osteoarthritis (4 sources) Arthritis; Translations: [Unilateral primary osteoarthritis, right knee] Onset: 3 10-14-2019 Chronic Osteoporosis (2 sources) Osteoporosis 05-09-2023 Chronic Other aftercare (1 source) Encounter for follow-up examination after completed treatment for conditions other than malignant neoplasm; Translations: [Encounter for follow-up examination after completed treatment for conditions other than malignant neoplasm] Onset: 8 Episodic Other gastrointestinal disorders (3 sources) Constipation 10-14-2019 Episodic Other nervous system disorders (1 source) Other chronic pain; Translations: [OTHER CHRONIC PAIN] Onset: 3 Chronic Other non-traumatic joint disorders (4 sources) Pain in right knee; Translations: [PAIN IN RIGHT KNEE] Onset: 3 Episodic Other nutritional; endocrine; and metabolic disorders (3 sources) Body mass index 30+ - obesity; Translations: [Body Mass Index 31.0-31.9, adult] 05-20-2023 Chronic Other nutritional; endocrine; and metabolic disorders (4 sources) Obesity; Translations: [Obesity, unspecified] 05-09-2023 Chronic [...] skin] Onset: 3 Episodic Other skin disorders (2 sources) Scar 05-20-2023 Episodic Unclassified (3 sources) Patient encounter status 10-14-2019 Unclassified (1 source) Other supraventricular tachycardia; Translations: [Other supraventricular tachycardia] Onset: 3 Varicose veins of lower extremity (2 sources) Venous varices 05-09-2023 Episodic Viral infection (6 sources) Measles; Translations: [Mumps] 10-14-2019 Episodic Past [...] Test Name Value Interpretation Reference Range Facility BD Bone Density DEXAon 10-11 BD Bone Density DEXA Exam Date/Time: 10/10/2023 08:33 EDT Reason for Exam: M85.89 Report IMPRESSION: OSTEOPENIA. The 10 year probability (FRAX) of a major osteoporotic fracture based on the left femoral neck bone marrow density is: 17.2%, and hip fracture 3.3%. EXAM: BD Bone Density DEXA DATE: 10/10/2023 8:13 AM CLINICAL HISTORY: M85.89. COMPARISON: Most recently 07/12/2021. COMMENTS: The lumbar spine and both hips were scanned. The mean bone mineral density from L1 to L4 is 1.376 g/cm2 and this value is 1.6 standard of deviation above the standard reference value for a young adult. Bone mineral density of the left femoral neck is 0.793 g/cm2 and this value is -1.8 standard of deviation below the standard reference value. Bone mineral density of the right femoral neck is 0.884 g/cm2 and this value is -1.1 standard of deviation below the standard reference value. These values meet WHO criteria for osteopenia. When compared to the most recent prior exam, there has been a nonsignificant 1.4% increase in bone mineral density from L1 to L4, a significant -7.3% decrease in bone mineral density of the left femoral neck, and a nonsignificant 1.1% increase in bone mineral density of the right femoral neck. RECOMMENDATIONS: 1. All patients should optimize her calcium and vitamin D intake. 2. Consider FDA-approved medical therapies in postmenopausal women and minimal age 50 years and older, based on the following: - hip or vertebral (clinical or morphometric) fracture. - T-score less than or equal to -2.5 at the femoral neck or spine after the appropriate evaluation to exclude secondary causes. - Low bone density (T score between -1.0 and -2.5 at the femoral neck or spine) and a 10 year probability of hip fracture greater than or equal to 3% or a 10-year probability of a major osteoporosis-related fracture greater than or equal to 20% based on FRAX calculation. Report - Clinician judgment and/or patient preferences may indicate treatment for palpable attenuation fracture probability is above or below these levels. - Further guidance on treatment can be found at the National Osteoporosis Foundation's website: bonesource.org 3. Patients with diagnosis of osteoporosis or high risk for fracture. There are irregular bone mineral density tests. For patients eligible for Medicare, routine testing is allowed once every 2 years. Testing frequency can be increased to 1 year for patient's history of rapidly progressing disease, those who are receiving or discontinuing medical therapy to restore bone mass or have additional risk factors. Ordering Provider: Huma Shannon FINAL REPORT Dictated: 10/12/2023 5:52 am Ryan Mohamud MD Signed (Electronic Signature): 10/12/2023 5:52 am Signed by: Ryan Mohamud MD Transcribed by: DANIAL Technologist: RRB Normal [facility] CHEMISTRYOrdered By: SYSTEM SYSTEM on 10-10-2023 25-hydroxyvitamin D3 [Mass/Vol] 44.0 ng/mL Normal 30.0 - 100.0 ng/mL Remisol Chem Calcium [Mass/Vol] 9.0 mg/dL Normal 8.9 - 11. 1 mg/dL Remisol Chem Creatinine [Mass/Vol] 0.8 mg/dL Normal 0.5 - 1.3 mg/dL Remisol Chem eGFR 77 mL/min/1.73 m2 Normal >=59mL/min /1 .73 m2 Remisol Chem Calciumon 10-10-2023 Calcium [Mass/Vol] 9.0 mg/dL Normal 8.9-11.1 [facility] Comment on above: Performed By: #### 2 [id number] #### [facility] [address] [place] [address] Consent for Treatmenton 09-23 Consent for Treatment [id number]#1.00TIFF Normal [facility] Creatinineon 10-10-2023 Creatinine [Mass/Vol] 0.8 mg/dL Normal 0.5-1.3 [facility] Comment on above: Performed By: #### 2 [id number] #### [facility] [address] [place] [address] Physician Orderon 10-10-2023 Physician Order [id number]#1.00TIFF Normal [facility] Vitamin D 25 Hydroxyon 10-09 25-hydroxyvitamin D3 [Mass/Vol] 44.0 ng/mL Normal 30.0-100.0 [facility] Comment on above: Performed By: #### 5 [id number] #### [facility] [address] [place] [address] eGFRon 10-10-2023 eGFR 77 mL/min/1.73 m2 Normal >=59 [facility] Comment on above: Order Comment: Order added by Discern Expert. Performed By: #### 1 [id number] #### [facility] [address] [place] [address] Physician Orderon 09-25-2023 Physician Order [id number]#1.00TIFF Normal [facility] Facesheeton 05-21-2023 Facesheet [id number]#1.00TIFF Normal [facility] Ambulatory Visit Summaryon 1 07-21-2022 Ambulatory Visit Summary HECTOR CHAVEZ :1950 Visit Date:05/20/2023 Ambulatory Visit Instructions Your Care Team Attending Physician - TITO AUGUSTINE, Federico Eason Primary Care Physician - Lizeth AUGUSTINE, Zeny Referring Physician - Zeny Stanley MD This Is Your Medications List Contact prescribing physician if questions or concerns alendronate (Fosamax 70 mg oral tablet) alprazolam (alprazolam 0.25 mg Tab) amitriptyline aspirin (aspirin 81 mg Oral EC Tab) bifidobacterium-lactobaci llus (Envive oral capsule) lisinopril (lisinopril 40 mg [...] prescribing physician if questions or concerns Unchanged bifidobacterium-lactobaci llus (Envive oral capsule) See instructions Per physician's [...] you for choosing us for your care. [facility] Physician Referralon 023 Physician Referral [id number]#1.00TIFF [facility] Office Visit (Cardiology)on 03-01-2022 Follow-up visit [...] and are (more content not included)... Normal [employer] Tobacco Screening.on 022 Adult depression screening assessment No [facility] 250 DO Work Phone: Fall risk assessment a) No falls within the last year [facility] DO Work Phone: Tobacco use status CP b) No -[facility] 250 DO Work Phone: PROF CHEM 8 (BAS METB)on Anion gap [Moles/Vol] 11.4 mmol/L Normal [facility] Comment on above: Performed By: #### B MP #### [facility] [address] [address] [address] Octavio Price Calcium [Mass/Vol] 9.1 mg/dL Normal 8.5-10.1 [facility] Comment on above: Performed By: #### B MP #### [facility] [address] [place] [address] Dr. Octavio Price Chloride [Moles/Vol] 105 mmol/L Normal 98-107 [facility] Comment on above: Performed By: #### B MP #### [facility] [address] [address] [address] Octavio Price CO2 [Moles/Vol] 30.6 mmol/L Normal 21.0-32.0 [facility] Comment on above: Performed By: #### B MP #### [facility] [address] [place] [address] Dr. Octavio Price Creatinine [Mass/Vol] 0.75 mg/dL Normal 0.55-1.02 [facility] Comment on above: Performed By: #### B MP #### [facility] [address] [address] [address] Octavio Price EGFR-AF GUAMANIAN >60 Normal >=60 [facility] Comment on above: Performed By: #### B MP #### [facility] [address] [place], [place] [id number] Dr. Octavio Price EGFR-NON AF GUAMANIAN >60 Normal >=60 [facility] Comment on above: Performed By: #### B MP #### [facility] [address] [place] [address] Dr. Octavio Price Glucose [Mass/Vol] 84 mg/dL Normal 74-106 [facility] Comment on above: Performed By: #### B MP #### [facility] [address] [place], [place] [address] Dr. Octavio Price Potassium [Moles/Vol] 4.0 mmol/L Normal 3.5-5.1 [facility] Comment on above: Performed By: #### B MP #### [facility] [address] [place], [place] [address] Dr. Octavio Price Sodium [Moles/Vol] 143 mmol/L Normal 136-145 [facility] Comment on above: Performed By: #### B MP #### [facility] [address] [address] [address] Octavio Price Urea nitrogen [Mass/Vol] 13.0 mg/dL Normal 7.0-18.0 [facility] Comment on above: Performed By: #### B MP #### [facility] [address] [address] [address] Octavio Price Urea nitrogen/Creatinine [Mass ratio] 17.3 mg/mg Normal [facility] Comment on above: Performed By: #### B MP #### [facility] [id number] Octavio Price Tobacco Screening.on 021 Fall risk assessment a) No falls within the last year [facility] 250 DO Work Phone: Heart Rate Normal [facility] Work Phone: Tobacco use status CP b) No [facility] DO Work Phone: CREATININEon 06-01-2019 Creatinine [Mass/Vol] 0.75 mg/dL Normal 0.50 - 1.05 [facility] Comment on above: Performed By: #### C REAT #### [address] [address] Creatinine [Mass/Vol] mg/dL Normal >60 [facility] Comment on above: Performed By: #### C REAT #### [address] [address] Result Comment: CALC ULATIONS OF ESTIMATED GFR ARE PERFORMED USING THE MDRD STUDY EQUATION FOR THE IDMS-TRACEABLE CREATININE METHODS. CLIN CHEM 2007;53:766-72 ELECTROLYTE PANELon 06-01-19 20 Anion gap [Moles/Vol] 13 mmol/L Normal 10 - 20 [facility] Comment on above: Performed By: #### E LECT #### [address] [address] Chloride [Moles/Vol] 103 mmol/L Normal 98 - 107 [facility] Comment on above: Performed By: #### E LECT #### [address] [address] HCO3 (Bld) [Moles/Vol] 29 mmol/L Normal 21 - 32 [facility] Comment on above: Performed By: #### E LECT #### [address] [address] Potassium [Moles/Vol] 4.0 mmol/L Normal 3.5 - 5.3 [facility] Comment on above: Performed By: #### E LECT #### [address] [address] Sodium [Moles/Vol] 141 mmol/L Normal 136 - 145 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 ([id number]) 1950 FDate Time Provider Wqcynkvjho86/5/18 10:30 AM JENNIFER LANTIGUA During your visit today, we recorded the following information about you: Pulse Respiration Blood pressure Weight 64/minute 18/minute 150/81 80.7 kg Height 1.651 Liz Lantigua MD 02/27/2018 10:54 AM Formerly [facility] and [facility]Rob[facility] and [place] Department of Cardiovascular MedicineOUTPATIENT VISIT DATE 02/27/18OUTPATIENT VISIT TYPEESTABLECU HEALTH [facility] CARE PHYS[facility]IAN:Zeny tSanley MD[address] [facility] [address]Kjvcc: [phone]: [phone] COMPLAINT:Patient presents with:Established PatientHISTORY OF PRESENT ILLNESS:Hector [...] [Other]) Mother- Hypertension Father- Heart Mother- Heart FatherALLERGIES:ALLERGIES No Known AllergiesMEDICATIONS:jesus nopril (ZESTRIL, PRINIVIL) 5 mg tablet TAKE 1 [...] no S3, no S4. No murmur. No carotidbruits.Respiratory : Clear to auscultation bilaterally. Good respiratory effort.GI: Soft, nontender, bowel sounds normal, no palpable hepatosplenomegalyExtremi ties: Normal pulses in distal lower extremities. Absent lower extremityedemaNeuro: Alert, cooperative with no focal deficit.Psych: Pleasant and cooperative.Skin: No rashes or wounds.CARDIOVASCULAR MEDICINE TESTING:A 12-lead electrocardiogram obtained on February 27, 2017 reveals sinus rhythm at61 bpm. There is a first-degree AV block present. There are no other changesnoted.IMPRESSION:1 . Essential hypertension, benign - ICD9: 401.1, ICD10: I10 (primarydiagnosis), fair control on current medical therapy. Suggested movinglisinopril dose to a.m.2. Pure hypercholesterolemia - ICD9: 272.0, ICD10: E78.00, currently onsimvastatin. Managed by primary care physician..3. PVC (premature ventricular contraction) - ICD9: 427.69, ICD10: I49.3, nocurrent symptoms of palpitations. There are no PVCs on her electrocardiogram.PLAN:Co ntinue current medical regimen. Change lisinopril dosing time to everymorning with first dose of carvedilol.Monitor blood pressure at home.Low-cholesterol, low-fat diet.Regular aerobic exercise.Patient will follow-up with primary care physician as this office is closing.She can follow-up with us as needed.A copy of this note will be provided to the requesting provider by way [facility] or via U.S. Mail.This document was generated utilizing Georgina Goodman dictation. I have reviewed andverified that the contents of the document are accurate with the exception ofminor grammatical, spelling and punctuation errors.CONTACT INFORMATION:Thank you for allowing us to participate in the care of this very pleasantpatient. Please free to contact us if we can be of any further assistance.Jennifer Lantigua MD, [facility] and [facility] of Cardiovascular MedicineLittle [facility] and [facility] InstituteM[facility], [place] [address]Jmroym: [phone] Referring Provider: ZENY STANLEY [[id number]]Allergies As of Date: 02/27/2018(No Known Allergies)Date Reviewed: [...] by DYANA LANTIGUA MD on 02/27/[address] [facility] PROGRESSon 02-27-2018 Protein mass conc HNO ID: [id number] thor: Jennifer Hoganervice: (none)Author Type: PhysicianType: Progress NotesFiled: 02/27/2018 10:54 AMNote Text:[facility] and [place] Department of Cardiovascular MedicineOUTPATIENT VISIT DATE 02/27/18OUTPATIENT VISIT TYPEESTABLISHEDPRHUGH CHATHAM MEMORIAL HOSPITALRY CARE PHYSICIAN:Zeny Stanley MD[address] [facility] [address]Huhlc: [phone]: [phone] COMPLAINT:Patient presents with:Established PatientHISTORY OF PRESENT ILLNESS:Hector [...] [Other]) Mother- Hypertension Father- Heart Mother- Heart FatherALLERGIES:ALLERGIES No Known AllergiesMEDICATIONS:jesus nopril (ZESTRIL, PRINIVIL) 5 mg tablet TAKE 1 [...] no S3, no S4. No murmur. No carotidbruits.Respiratory : Clear to auscultation bilaterally. Good respiratory effort.GI: Soft, nontender, bowel sounds normal, no palpable hepatosplenomegalyExtremi ties: Normal pulses in distal lower extremities. Absent [...] of palpitations. There are no PVCs on herelectrocardiogram.PLAN :Continue current medical regimen. Change lisinopril dosing time to everymorning with first dose of carvedilol.Monitor blood pressure at home.Low-cholesterol, low-fat diet.Regular aerobic exercise.Patient will follow-up with primary care physician as this office isclosing. She can follow-up with us as needed.A copy of this note will be provided to the requesting provider by [facility] or via U.S. Mail.This document was generated utilizing Phot[employer]. I have reviewedand verified that the contents of the document are accurate with theexception of minor grammatical, spelling and punctuation errors.CONTACT INFORMATION:Thank you for allowing us to participate in the care of this very pleasantpatient. Please free to contact us if we can be of any furtherassistance.Jennifer Lantigua MD, FACCRobert and Mariana GeDepartment of Cardiovascular MedicinePromedica Flower Hospitalrt and Vascular InstituteDavid Ville [id number] [place], [place] [address]Jcufjq: [phone] [facility] Vital Signs Date Time Vital Sign Value Performing Clinician Facility 05-20-2023 15:09-0500 Blood Pressure Location Federico FRANCIS [facility] 05-20-2023 15:09-0500 Diastolic blood pressure 78 mm[Hg] Federico MCINTOSHL [facility] 05-20-2023 15:09-0500 Heart rate 72 /min Federico MCINTOSHL [facility] 05-20-2023 15:09-0500 Respiratory rate 16 /min Federico MCINTOSHL [facility] 05-20-2023 15:09-0500 Systolic blood pressure 128 mm[Hg] Federico MCINTOSHL [facility] [facility] 02-28-2023 09:40-0400 Body height 165.1 cm Bradly Tanner MD Work Phone: [facility] 02-28-2023 09:40-0400 Body mass index (BMI) [Ratio] 31.85 kg/m2 Bradly Tanner MD Work Phone: [facility] 02-28-2023 09:40-0400 Body weight 86.82 kg Bradly Tanner MD Work Phone: [facility] 02-28-2023 09:40-0400 Diastolic blood pressure 70 mm[Hg] Bradly Tanner MD Work Phone: [facility] 02-28-2023 09:40-0400 Heart rate 72 /min Bradly Tanner MD Work Phone: [facility] 02-28-2023 09:40-0400 Systolic blood pressure 120 mm[Hg] Bradly Tanner MD Work Phone: [facility] 03-01-2022 09:41-0400 Body height 165.1 cm Zeny M Hoy Work Phone: [facility] 250 DO Work Phone: 03-01-2022 09:41-0400 Body mass index (BMI) [Ratio] 31.78 kg/m2 Zeny M Hoy Work Phone: [facility] 250 DO Work Phone: 03-01-2022 09:41-0400 Body surface area Derived from formula 1.94 m2 Zeny M Hoy Work Phone: [facility] 250 DO Work Phone: 03-01-2022 09:41-0400 Body weight 86.64 kg Zeny M Hoy Work Phone: [facility] 250 DO Work Phone: 03-01-2022 09:41-0400 Diastolic blood pressure 80 mm[Hg] Zeny Lakhwinder Hoy Work Phone: [facility] 250 DO Work Phone: 03-01-2022 09:41-0400 Heart rate 69 /min Zeny Lakhwinder Hoy Work Phone: [facility] 250 DO Work Phone: 03-01-2022 09:41-0400 Systolic blood pressure 130 mm[Hg] Zeny Lakhwinder Hoy Work Phone: [facility] 250 DO Work Phone: 02-23-2021 09:42-0400 Body height 165.1 cm Zeny Lakhwinder Hoy Work Phone: [facility] 250 DO Work Phone: 02-23-2021 09:42-0400 Body mass index (BMI) [Ratio] 31.62 kg/m2 Zeny Lakhwinder Hoy Work Phone: [facility] 250 DO Work Phone: 02-23-2021 09:42-0400 Body surface area Derived from formula 1.94 m2 Zeny Lakhwinder Hoy Work Phone: [facility] 250 DO Work Phone: 02-23-2021 09:42-0400 Body weight 86.18 kg Zeny Keane Hoy Work Phone: [facility] 250 DO Work Phone: 02-23-2021 09:42-0400 Diastolic blood pressure 82 mm[Hg] Zeny Lakhwinder Hoy Work Phone: [facility] 250 DO Work Phone: 02-23-2021 09:42-0400 Heart rate 62 /min Zeny Lakhwinder Hoy Work Phone: [facility] 250 DO Work Phone: 02-23-2021 09:42-0400 Systolic blood pressure 126 mm[Hg] Zeny Stanley Work Phone: [facility] 250 DO Work Phone: Encounters Encounter Date Encounter Type Care Provider Facility Start: 10-10-2023 End: 10-11-2023 ambulatory Huma Shannon Facility:[facility] Start: 10-10-2023 End: 10-10-2023 Patient encounter procedure Huma Shannon [facility] Start: 05-20-2023 End: 05-21-2023 ambulatory Federico FRANCIS Facility:[facility] Start: 05-20-2023 End: 05-20-2023 Patient encounter procedure Federico Eason [facility] Start: 05-05-2023 ambulatory Humaernie Shannon Facility:[facility] [place] Start: 02-28-2023 End: 02-28-2023 ambulatory [facility] Start: 02-28-2023 End: 02-28-2023 Office outpatient visit 15 minutes Bradly Tanner MD Work Phone: [facility] Comment on above: Palpitation (Primary Dx); Paroxysmal atrial tachycardia; Premature ventricular contractions; Class 1 obesity; Primary hypertension; Hyperlipidemia, unspecified hyperlipidemia type Start: 10-31-2022 ambulatory SHANE FINNEY . Facili ty:[facility] Start: 10-15-[address] ZENY Jimenez Facili ty:[facility] Start: 10-01-2022 End: 10-02-2022 ambulatory ANA KHALIL . Facility:[facility] Start: 07-31-2022 End: 08-01-2022 ambulatory RAY WEINSTEIN Facility:[facility] Start: 03-20-2022 End: 03-21-2022 ambulatory RAY WEINSTEIN Facility:[facility] Start: 03-08-2022 Rx Renewal Zeny Stanley Work Phone: [facility] DO Work Phone: Start: 03-01-[address] Bradly Tanner Facility: Start: 03-01-2022 Office outpatient vi sit 15 minutes Zeny Stanley Work Phone: [facility] 250 DO Work Phone: Start: 02-19-2022 End: [...] End: 10-04-2021 Patient encounter procedure Huma Shannon [facility] Start: 02-23-2021 Patient encounter procedure [facility] Work Phone: Start: 02-27-2018 End: 03-13-2018 Patient encounter JENNIFER LANTIGUA [facility] Procedures Date Procedure Procedure Detail Performing Clinician Start: 06-05-2016 Excision of lesion of skin Federico FRANCIS Comment on above: left ear Appendectomy Zeny M Hoy Work Phone: Cataract surgery Zeny M H oy Work Phone: Dilation and curettage [facility] Extraction of cataract Nirav mushtaq FRANCIS Hysterectomy Zeny M Hoy Work Phone: Hysterectomy Huma Shannon Ligation of varicose vein Do charo Stanley Work Phone: Stripping of vein Huma العلي pe Tonsillectomy Zeny Stanley Work Phone: Tonsillectomy Huma Shannon Total abdominal hysterectomy with bilateral salpingo-oophorectomy Federico FRANCIS Plan of Treatment Date Care Activity Detail Author Start: 08-13-2024 Screening for malign ant neoplasm of colon [facility] Start: 03-19-2024 End: 03-19-2024 Patient encounter procedure 03/19/2024 10:20 AM EDT Office Visit [facility] [address] [place] [address] Bradly Tanner MD [address] [facility] [address], [facility] [address] [place] [address] [facility] Start: 02-28-2023 FUV, Provider: Bradly Tanner, Status: Pen, Time: 9:20 AM FUV, Provider: Bradly Tanner, Status: Pen, Time: 9:20 AM [facility] 250 DO Work Phone: Start: 01-24-2023 Influenza vaccination Influenz a Vaccine (#1) [facility] Start: 07-12-2022 Screening for osteoporosis Bone Density Scan [facility] Start: 04-22-2022 COVID-19 Vaccine (4 - Pfizer series) COVID-19 Vaccine (4 - Pfizer series) [facility] Start: 03-01-2022 FUV, Provider: Bradly Tanner, Status: Pen, Time: 9:30 AM FUV, Provider: Bradly Tanner, Status: Pen, Time: 9:30 AM [facility] Work Phone: Start: 1990 Screening for malign ant neoplasm of breast Mammogram [facility] Start: 02-27-1972 DTaP/Tdap/Td Vaccine s (1 - Tdap) DTaP/Tdap/Td Vaccines (1 - Tdap) [facility] Start: 02-27-1968 Diabetes mellitus screening Diabetes Screening [facility] Start: 02-27-1968 Hepatitis C screening Hepatitis C Sc reening [facility] Start: 1950 Lipid panel Lipid Panel [facility] Start: 1950 Screening for malign ant neoplasm of colon [facility] Start: 1950 Yearly Adult Physical Yearly Adult P hysical [facility] Immunizations Immunization Date Immunization Notes Care Provider Fa cili 03-26-2023 influenza virus vaccine, unspecified formulation Federico FRANCIS [facility] 03-26-2022 Flu vaccine, quadrivalent, high-dose, preservative free, age 65y+ (FLUZONE) Bradly Tanner MD Work Phone: [facility] Work Phone: 03-26-2022 influenza virus vaccine, unspecified formulation Bradly Tanner MD Work Phone: [facility] Work Phone: 02-25-2022 Pfizer COVID-19 Vac Bivalent 30 MCG/0.3ML Intramuscular Suspension Zeny M Tannerfabricio Work Phone: [facility] 250 DO Work Phone: Comment on above: Series: 05-11-2021 SARS-CoV-2 (COVID-19 ) mRNA BNT-162b2 vax Federico FRANCIS [facility] 03-19-2021 Influenza, Seasonal, Quadrivalent, Adjuvanted Bradly Tanner MD Work Phone: [facility] Work Phone: 08-04-2020 zoster vaccine recombinant Bradly Tanner MD Work Phone: [facility] Work Phone: 07-19-2020 SARS-CoV-2 (COVID-19 ) mRNA BNT-162b2 ezekiel FRANCIS [facility] Comment on above: Result Comment: 2022: [id number] 06-28-2020 SARS-CoV-2 (COVID-19 ) mRNA BNT-162b2 ezekiel FRANCIS [facility] Comment on above: Result Comment: 2022: [id number] 04-11-2020 zoster vaccine recombinant Bradly Tanner MD Work Phone: [facility] Work Phone: 04-21-2019 pneumococcal polysaccharide vaccine, 23 valbobby Tanner MD Work Phone: [facility] Work Phone: 03-26-2019 influenza virus vaccine, unspecified formulation Zeny Stanley Work Phone: [facility] 250 DO Work Phone: 03-09-2019 influenza, high dose seasonal, preservative-free Bradly Tanner MD Work Phone: [facility] Work Phone: 08-13-2018 pneumococcal polysaccharide vaccine, 23 valent Bradly Tanner MD Work Phone: [facility] Work Phone: 05-26-2018 pneumococcal conjuga te vaccine, 13 valent Zeny Stanley Work Phone: [facility] 250 DO Work Phone: 04-08-2018 influenza, injectabl e, quadrivalent, preservative free Bradly Tanner MD Work Phone: [facility] Work Phone: 05-26-2017 pneumococcal polysaccharide vaccine, 23 valbobby Harty Work Phone: [facility] 250 DO Work Phone: 04-04-2015 influenza, seasonal, injectable, preservative free Bradly Tanner MD Work Phone: [facility] Work Phone: 04-01-2014 influenza, injectabl e, quadrivalent, contains preservative Bradly Tanner MD Work Phone: [facility] Work Phone: 03-19-2013 influenza, seasonal, injectable Bradly Tanner MD Work Phone: [facility] Work Phone: Payers Date Payer Category Payer Unknown 2015 Medicare MEDICARE MEDICAR E PART A AND B [id number] 2015-Present [address] [place] [address] [id number] 1959 Medicare [id number] 1959 Unknown [id number] 1950 Unknown [id number] 1950 Unknown [id number] 1950 Unknown [id number] 1950 Unknown [id number] 1950 Unknown [id number] 1950 Unknown [id number] [id number] 1950 Unknown [id number] [id number] 1950 Unknown [id number] [id number] 1950 Unknown [id number] [id number] 1950 Unknown [id number] [id number] 1950 Unknown [id number] [id number] 1950 Unknown [id number] 1950 Unknown [id number] 1950 Unknown [id number] 1950 Unknown [id number] Social History Date Type Detail Facility Start: 02-28-2023 Alcohol use Alcohol use [facility] 250 DO Work Phone: Start: 07-23-2021 End: 05-20-2023 Tobacco smoking status Never smoked tobacco (finding) [facility] Tobacco smoking status Never [facility] Start: 02-28-2023 Sex Assigned At Female F [facility] Start: 02-28-2023 Tobacco use and exposure Smokeless tobacco non-user [facility] Work Phone: Start: 02-28-2023 Alcohol intake Ex-drinker (finding) [facility] Work Phone: Start: 1950 Sex Assigned At Not on file U [facility] Work Phone: Start: 02-18-2023 End: 02-28-2023 Exposure to SARS-CoV-2 (event) Not sure [facility] Functional Status Date Assessment Result Facility 05-20-2023 [...] virus vaccine, inactivated 03/26/2023 Recorded SARS-CoV-2 (COVID-19) [id number] 02/25/2022 Recorded SARS-CoV-2 (COVID-19) mRNA BNT-162b2 vax 05/11/2021 Recorded SARS-CoV-2 (COVID-19) mRNA BNT-162b2 vax 07/19/2020 Recorded 2023-05-09: [id number] SARS-CoV-2 (COVID-19) mRNA BNT-162b2 vax 06/28/2020 Recorded 2023-05-09: [id number] [facility] Comment on above: Result Comment: Elec [...] unspecified hyperlipidemia type documented in this encounter [facility] Work Phone: 02-28-2023 Instructions Nina Stewart LPN [...] up 9 month documented in this encounter [facility] Work Phone: 10-01-2022 Note CONSULTATION CONSULTATION DATE: [...] our patients to inform us about any [id number] medications or herbal remedies/nutritional supplements/alternative remedies. 2. [...] options with their primary care provider. [facility] 07-31-2022 Note PROCEDURE: XR FOOT L [...] by: ANANTH VALENTINE Date: 2022-07-31 10:34 [facility] 03-20-2022 Note PROCEDURE: XR FOOT L [...] by: NEPTALI GOODE Date: 2022-03-20 21:30 [facility] 02-19-2022 Note PROCEDURE: XR FOOT L [...] by: ANANTH VALENTINE Date: 2022-02-19 18:22 [facility] 01-22-2022 Note PROCEDURE: XR FOOT L [...] by: NEPTALI GOODE Date: 2022-01-22 10:35 [facility] 01-02-2022 Note PROCEDURE: XR FOOT L [...] by: ANANTH VALENTINE Date: 2022-01-02 16:27 [facility] 12-28-2021 Note PROCEDURE: XR FOOT L [...] by: NEPTALI GOODE Date: 2021-12-28 07:39 [facility] 11-30-2021 Note PROCEDURE: XR FOOT L [...] by: NEPTALI GOODE Date: 2021-11-30 08:48 [facility] Evaluation + Plan note No data available for this section [facility] Evaluation note Diagnosis Palpitation- Primary Palpitations Paroxysmal atrial tachycardia Paroxysmal supraventricular tachycardia Premature ventricular contractions Other premature beats Class 1 obesity Primary hypertension Unspecified essential hypertension Hyperlipidemia, unspecified hyperlipidemia type documented in this encounter [facility] Work Phone: History of Present illness Narrative* [...] will see her back in 1 year [facility] 250 DO Work Phone: History of [...] year plan to repeat her lab work [facility] 250 DO Work Phone: Hospital Discharge instructions No data available for this section [facility] No data available for this section [facility] [place] Reason for referral (narrative)* Consultation (Routine) - Authorized Specialty Diagnoses / Procedures Referred By Corrie rubio Referred To Contact Cardiology Diagnoses Paroxysmal atrial tachycardia Premature ventricular contractions Procedures Follow Up In Cardiology Bradly Tanner MD [address] [facility] [address] [place] [address] Referral ID Status Reason Start Date Expiration Date V isits Requested Visits Authorized [id number] Authorized 02/28/2023 08/27/2023 1 1 T [facility] Work Phone: Summary Purpose Family History No [...] section and content) DATE CREATED AUTHOR 03/27/[address] [facility] DATE CREATED AUTHOR AUTHOR'S ORGANIZ ATION 08/13/2019 [facility] DATE CREATED AUTHOR AUTHOR'S ORGANIZ ATION 03/01/2022 [facility] DATE CREATED AUTHOR AUTHOR'S ORGANIZ ATION 03/02/2022 [employer] DATE CREATED AUTHOR AUTHOR'S ORGANIZ ATION 10/10/2022 [facility] DATE CREATED AUTHOR AUTHOR'S ORGANIZ ATION 03/04/2023 [facility] DATE CREATED AUTHOR AUTHOR'S ORGANIZ ATION 10/12/2023 [facility] DATE CREATED AUTHOR AUTHOR'S ORGANIZ ATION 10/13/2023 [facility] Reason for Visit (unrecogniz ed section and content) Reason Comments Annual Exam 1yr Care Teams (unrecognized sec tion and content) [employer] Relationship Specialty Start Date End Date Zeny Stanley MD [address] [place] [address] PCP - General 06/01/19 FOR RECORDS PERTAINING [...] BE BASED ON THE PRIMARY CLINICAL RECORDS. [facility] [employer] [facility] provides no warranty or guarantee of the accuracy or completeness of information in this document.
[2023-10-14 09:23] VITALS: BP 189/76; PULSE 68; O2SAT 96
[2023-10-14 09:26] VITALS: BP 189/66; PULSE 70; O2SAT 96
[2023-10-14] MEDS: HYALURONATE SODIUM, STABILIZED 60 MG/3 ML SYRINGE IU (09:28)
[2023-10-14] MEDS: LIDOCAINE HCL 2% PF 100 MG/5 ML VIAL 1 ML INJ (09:28)
[2023-10-14] MEDS: IOHEXOL 240 MG/ML - 10 ML VIAL 24 MG INJ (09:28)
--- NOTE | 2023-10-14 10:13 | W.PM.PROCNOT ---
Date of procedure: 10/14/23 Pre-op diagnosis: left knee osteoarthritis Post-op diagnosis: same as pre-op Procedure: Procedure: Left knee joint injection using Durolane 3ml. Immediate complications none. Anesthesia: 2% lidocaine plain for skin wheal. After informed consent was obtained, patient brought to the OR placed in the supine position. Skin overlying the area was prepped and draped using Betadine. 25-gauge 1/2 inch needle was used for skin wheal over the medial aspect of the knee joint identified under fluoroscopy. Omnipaque dye was used to confirm needle tip placement within the knee joint space 0.5 mL use of the injection. Subsequently 3ml of durolane was injected into the space. No indication of intravascular or intraneuronal needle tip placement or injection was noted post procedure. The needle was removed, patient transferred to Recovery room in stable condition to discharged home after meeting criteria. Anesthesia: Local Surgeon: Vannesa Cummins Condition: stable
== END 2023-10-14 09:31 | disposition home or self-care (01) ==
LOC: SURGOUT 08:02
PROVIDERS: PCP Family Medicine; Visit Provider Anesthesiology Pain Medicine
DX: M17.12 Unilateral primary osteoarthritis, left knee (principal)
CPT/HCPCS: 20610; 77002; J7318; Q9966

== ENCOUNTER 2023-10-23 10:28 | Outpatient (OUT) | payer MEDICARE, BC, SELFPAY ==
--- OUTSIDE RECORDS SUMMARY | 2023-10-23 10:33 | XMS_ITS | CCD ---
Author Organization [facility] Care Team Providers Care Collet Driller Name Role Phone JENNIFER LANTIGUA Unavailable Unavailab ZENY Guzmán Unavailable Unavailable Zeny Stanley Unavailable Unavailable Unavailable Zeny Stanley Primary Care Physician Ciro, Dr. Abdullahi Referring Unavaila ezoi Tanner, Dr. Abdullahi Attending Unavaila Zeny Agarwal [...] AUGUSTINE, Zeny Caballero Primary Care Provider 1( [phone] BRADLY TANNER Attending Unavailable ZENY STANLEY Primary Care Unavailable Huma Shannon Admitting Unavailable ShivaHuma berry Attending Unavailable Huma Shannon Referring Unavailable Federico FRANCIS Attending Unavailable Zeny Stanley Referring Unavailable Huma Shannon Referring Unavailable ShivaHuma Attending Unavailable ShivaAlvertoHuma Chito Admitting Unavailable Medications Current Medications Medication Drug Class(es) [...] 02/28/2023 Discontinued (Reorder) take 2 tablets by [facility] once daily Magnesium Oxide 400 MG Oral [...] Start: 04-10-2021 take 2 tablets by mo [facility] once daily metoprolol succinate XL (Toprol-XL) 50 mg 24 hr tablet Take 2 tablets (100 mg) by mouth once daily. 0 04/10/2021 Active Start: 04-10-2021 take 2 tablets by [facility] once daily Metoprolol Succinate ER 50 MG [...] day, # 255 gram, Refills(s) 11, Pharmacy: [facility]/pharmacy #[id number], 165.1, cm, 10/14/19 [...] Test Name Value Interpretation Reference Range Facility [place] Mamm Screen w/CAD if perf and 3D Bilon 10-14-2023 MA Mamm Screen w/CAD if perf and 3D Allen Exam Date/Time: 10/10/2023 08:36 EDT Reason for Exam: Z12.31 Report IMPRESSION: BIRADS 2 BENIGN FINDINGS, NORMAL INTERVAL FOLLOW-UP Follow-up: 12 MONTH RECALL Density: Scattered tissue. Vascular calcifications: Absent. EXAM: MA Mamm Screen w/CAD if perf and 3D Allen DATE: 10/10/2023 7:53 AM CLINICAL HISTORY: Z12.31. COMPARISONS: 10/08/2022, 10/04/2021, and 10/02/2020. TECHNIQUE: Routine full-field digital mammograms and 3D breast tomosynthesis were obtained of both breasts. FINDINGS: There are no developing masses, suspicious microcalcifications, or areas of architectural distortion identified on the current study. No significant changes are identified from the prior studies, given differences in technique and positioning. Stable asymmetric densities. Dense Breast: No. CAD analysis was performed and used in the interpretation. Board Certified Radiologists. Accredited by the ACR and FDA. MAMMOGRAPHY IS VERY IMPORTANT TO YOUR HEALTH. THE CURRENT CITIZEN OF [place] [employer] GUIDELINES RECOMMENDS ANNUAL MAMMOGRAPHY BEGINNING AT AGE 40. THIS FACILITY UTILIZES A REMINDER SYSTEM TO ENSURE ALL PATIENTS RECEIVE REMINDER NOTIFICATIONS AT THE APPROPRIATE TIME BASED ON THE RECOMMENDATIONS OF THIS EXAM. Report Ordering Provider: Huma Shannon FINAL REPORT Dictated: 10/14/2023 12:44 pm Ryan Mohamud MD Signed (Electronic Signature): 10/14/2023 12:44 pm Signed by: Ryan Mohamud MD Transcribed by: DANIAL Technologist: [facility] Assessment: BI-RADS Category 2-Benign finding Recommendation: Normal interval follow-up Normal [facility] BD Bone Density DEXAon 10-11 BD Bone [...] Ryan Mohamud MD Transcribed by: DANIAL Technologist: KEEGAN Farooq [facility] CHEMISTRYOrdered By: SYSTEM SYSTEM on 10-10-2023 25-hydroxyvitamin D3 [Mass/Vol] 44.0 ng/mL Normal 30.0 - 100.0 ng/mL Remisol Chem Calcium [Mass/Vol] 9.0 mg/dL Normal 8.9 - 11. 1 mg/dL Remisol Chem Creatinine [Mass/Vol] 0.8 mg/dL Normal 0.5 - 1.3 mg/dL Remisol Chem eGFR 77 mL/min/1.73 m2 Normal >=59mL/min /1 .73 m2 Remisol Chem Calciumon 10-10-2023 Calcium [Mass/Vol] 9.0 mg/dL Normal 8.9-11.1 [facility] Comment on above: Performed By: #### 2 [id number] #### [facility] [address] [place] [address] Consent for Treatmenton 09-23 Consent for Treatment [id number]#1.00TIFF Normal [facility] Creatinineon 10-10-2023 Creatinine [Mass/Vol] 0.8 mg/dL Normal 0.5-1.3 [facility] Comment on above: Performed By: #### 2 [id number] #### [facility] [address] [place] [address] Physician Orderon 10-10-2023 Physician Order [id number]#1.00TIFF Normal [facility] Vitamin D 25 Hydroxyon 10-09 25-hydroxyvitamin D3 [Mass/Vol] 44.0 ng/mL Normal 30.0-100.0 [facility] Comment on above: Performed By: #### 5 [id number] #### [facility] [address] [place] [address] eGFRon 10-10-2023 eGFR 77 mL/min/1.73 m2 Normal >=59 [facility] Comment on above: Order Comment: Order added by Discern Expert. Performed By: #### 1 [id number] #### [facility] [address] [place] [address] Physician Orderon 09-25-2023 Physician Order [id number]#1.00TIFF Normal [facility] Facesheeton 05-21-2023 Facesheet [id number]#1.00TIFF Normal [facility] Ambulatory Visit Summaryon 07-21-2022 Ambulatory Visit Summary HECTOR CHAVEZ :1950 [...] you for choosing us for your care. [facility] Physician Referralon 023 Physician Referral [id number]#1.00TIFF [facility] Office Visit (Cardiology)on 03-01-2022 Follow-up visit [...] Lipid Panel; Status:Active - Retrospective Authorization; Requested for:[id number]; Hypertension, Paroxysmal atrial tachycardia Basic Metabolic Panel; Status:Active - Retrospective Authorization; Requested for:[id number]; IO EKG Electrocardiogram- 12 Lead; Status:Complete; Done: [...] and are (more content not included)... Normal [employer] Tobacco Screening.on 022 Adult depression screening assessment No [facility] [address] DO Work Phone: Fall risk assessment a) No falls within the last year [facility] [address] DO Work Phone: Tobacco use status [facility] b) No [facility] DO Work Phone: PROF CHEM 8 (BAS METB)on Anion gap [Moles/Vol] 11.4 mmol/L Normal [facility] Comment on above: Performed By: #### B MP #### [facility] [address] [address] [address] Octavio Price Calcium [Mass/Vol] 9.1 mg/dL Normal 8.5-10.1 [facility] Comment on above: Performed By: #### B MP #### [facility] [address] [address] [address] Octavio Price Chloride [Moles/Vol] 105 mmol/L Normal 98-107 [facility] Comment on above: Performed By: #### B MP #### [facility] [address] [address] [address] Octavio Price CO2 [Moles/Vol] 30.6 mmol/L Normal 21.0-32.0 [facility] Comment on above: Performed By: #### B MP #### [facility] [address] [place] [address] Dr. Octavio Price Creatinine [Mass/Vol] 0.75 mg/dL Normal 0.55-1.02 [facility] Comment on above: Performed By: #### B MP #### [facility] [address] [place] [address] Dr. Octavio Price EGFR-AF CITIZEN OF [place] >60 Normal >=60 [facility] Comment on above: Performed By: #### B MP #### [facility] [address] [place] [address] Dr. Octavio Price EGFR-NON AF CITIZEN OF [place] >60 Normal >=60 [facility] Comment on above: Performed By: #### B MP #### [facility] [address] [address] [address] Octavio Price Glucose [Mass/Vol] 84 mg/dL Normal 74-106 [facility] Comment on above: Performed By: #### B MP #### [facility] [address] [place] [address] Dr. Octavio Price Potassium [Moles/Vol] 4.0 mmol/L Normal 3.5-5.1 [facility] Comment on above: Performed By: #### B MP #### [facility] [address] [place] [address] Dr. Octavio Price Sodium [Moles/Vol] 143 mmol/L Normal 136-145 [facility] Comment on above: Performed By: #### B MP #### [facility] [address] [place], [place] [address] Dr. Octavio Price Urea nitrogen [Mass/Vol] 13.0 mg/dL Normal 7.0-18.[address] [facility] Comment on above: Performed By: #### B MP #### [facility] [address] [place], [place] [address] Dr. Octavio Price Urea nitrogen/Creatinine [Mass ratio] 17.3 mg/mg Normal [facility] Comment on above: Performed By: #### B MP #### [facility] [address] [address] [address] Octavio Price Tobacco Screening.on 021 Fall risk assessment a) No falls within the last year [facility] [address] DO Work Phone: Heart Rate Normal [facility] DO Work Phone: Tobacco use status [facility] b) No [facility] DO Work Phone: CREATININEon 06-01-2019 Creatinine [Mass/Vol] 0.75 mg/dL Normal 0.50 - 1.05 [facility] Comment on above: Performed By: #### C REAT #### [address] [address] Creatinine [Mass/Vol] mg/dL Normal >60 [facility] Comment on above: Performed By: #### C REAT #### [address] [address] Result Comment: CALC ULATIONS OF ESTIMATED GFR ARE PERFORMED USING THE MDRD STUDY EQUATION FOR THE IDMS-TRACEABLE CREATININE METHODS. CLIN CHEM 2007;53:766-72 ELECTROLYTE PANELon 06-01-19 20 Anion gap [Moles/Vol] 13 mmol/L Normal 10 - 20 [facility] Comment on above: Performed By: #### E LECT #### [address] [address] Chloride [Moles/Vol] 103 mmol/L Normal 98 - 107 [facility] Comment on above: Performed By: #### E LECT #### [address] [address] HCO3 (Bld) [Moles/Vol] 29 mmol/L Normal 21 - 32 [facility] Comment on above: Performed By: #### E LECT #### [address] [address] Potassium [Moles/Vol] 4.0 mmol/L Normal 3.5 - 5.3 [facility] Comment on above: Performed By: #### E LECT #### [address] [address] Sodium [Moles/Vol] 141 mmol/L Normal 136 - 145 [facility] Comment on above: Performed By: #### E LECT #### [address] [address] UREA NITROGENon 06-01-2019 Urea nitrogen [Mass/Vol] 19 mg/dL Normal 6 - 23 [facility] Comment on above: Performed By: #### U KRUPA #### [address] [address] CNOVon 02-27-2018 CNOV Office Visit (KLAUDIA) HECTOR CHAVEZ ([id number]) 1950 FDate Time Provider Oqmcvohhbd89/5/18 10:30 AM JENNIFER LANTIGUA During your visit today, we recorded the following information about you: Pulse Respiration Blood pressure Weight 64/minute 18/minute 150/81 80.7 kg Height 1.651 Liz Lantigua MD 02/27/2018 10:54 AM [facility] InstituteRobjanae and Mariana Ge Department of Cardiovascular MedicineOUTPATIENT VISIT DATE 02/27/18OUTPATIENT VISIT TYPEESTABLFIRSTHEALTHPRTANNER [facility] CARE PHYSICIAN:Zeny Stanley MD[address] [facility] [address]Byfyl: [phone]: [phone] COMPLAINT:Patient presents with:Established PatientHISTORY OF PRESENT ILLNESS:Hector [...] provided to the requesting provider by [facility] or via U.S. Mail.This document was generated utilizing Nexercise dictation. I have reviewed andverified that the contents of the document are accurate with the exception ofminor grammatical, spelling and punctuation errors.CONTACT INFORMATION:Thank you for allowing us to participate in the care of this very pleasantpatient. Please free to contact us if we can be of any further assistance.Jennifer Lantigua MD, [facility] and Mariana GeTnpartment of Cardiovascular MedicineMemorial Health System [facility] Hospitalrt and Vascular Institute[address] [address]Cfoxcs: [phone] Referring Provider: ZENY STANLEY [[id number]]Allergies As of Date: 02/27/2018(No Known Allergies)Date Reviewed: [...] Status:Closed by DYANA LANTIGUA MD on 02/27/18 [facility] PROGRESSon 02-27-2018 Protein mass conc HNO ID: [id number] thor: Jennifer Hoganervice: (none)Author Type: PhysicianType: Progress NotesFiled: 02/27/2018 10:54 AMNote Text:Heart and Vascular InstituteCordele and Mariana Ge Department of Cardiovascular MedicineOUTPATIENT VISIT DATE 02/27/18OUTPATIENT VISIT TYPEESTABLISHEDPRIMARY CARE PHYSICIAN:Zeny Stanley MD[address] [facility] [address]Lsxjw: [phone]: [phone] COMPLAINT:Patient presents with:Established PatientHISTORY OF PRESENT ILLNESS:Hector [...] provided to the requesting provider by [facility] or via U.S. Mail.This document was generated utilizing Nexercise dictation. I have reviewedand verified that the contents of the document are accurate with theexception of minor grammatical, spelling and punctuation errors.CONTACT INFORMATION:Thank you for allowing us to participate in the care of this very pleasantpatient. Please free to contact us if we can be of any furtherassistance.Jennifer Lantigua MD, FACCRobert and Mariana Beauchamppinon health centerment of Cardiovascular MedicineHeart and Vascular InstituteJanet Ville [address] [place], [place] [address]Thplse: [phone] Normal [facility] Vital Signs Date Time Vital Sign Value Performing Clinician Facility 05-20-2023 15:09-0500 Blood Pressure Location Federico MCINTOSHL [facility] 05-20-2023 15:09-0500 Diastolic blood pressure 78 mm[Hg] Federico NILL [facility] 05-20-2023 15:09-0500 Heart rate 72 /min Federico NILL [facility] 05-20-2023 15:09-0500 Respiratory rate 16 /min Federico NILL [facility] 05-20-2023 15:09-0500 Systolic blood pressure 128 mm[Hg] Federico FRANCIS [facility] 02-28-2023 09:40-0400 Body height 165.1 cm Bradly Tanner MD Work Phone: [facility] 02-28-2023 09:40-0400 Body mass index (BMI) [Ratio] 31.85 kg/m2 Bradly Tanner MD Work Phone: [facility] 02-28-2023 09:40-0400 Body weight 86.82 kg Bradly Tanner MD Work Phone: [facility] 02-28-2023 09:40-0400 Diastolic blood pressure 70 mm[Hg] Bradly Tanner MD Work Phone: [facility] 02-28-2023 09:40-0400 Heart rate 72 /min Bradly Tanner MD Work Phone: [facility] 02-28-2023 09:40-0400 Systolic blood pressure 120 mm[Hg] Bradly Tanner MD Work Phone: [facility] 03-01-2022 09:41-0400 Body height 165.1 cm Zeny M Hoy Work Phone: [facility] [address] DO Work Phone: 03-01-2022 09:41-0400 Body mass index (BMI) [Ratio] 31.78 kg/m2 Zeny M Hoy Work Phone: [facility] 250 DO Work Phone: 03-01-2022 09:41-0400 Body surface area Derived from formula 1.94 m2 Zeny M Hoy Work Phone: [facility] [address] DO Work Phone: 03-01-2022 09:41-0400 Body weight 86.64 kg Zeny M Hoy Work Phone: [facility] [address] DO Work Phone: 03-01-2022 09:41-0400 Diastolic blood pressure 80 mm[Hg] Zeny M Hoy Work Phone: [facility] DO Work Phone: 03-01-2022 09:41-0400 Heart rate 69 /min Zeny M Hoy Work Phone: [facility] [address] DO Work Phone: 03-01-2022 09:41-0400 Systolic blood pressure 130 mm[Hg] Zeny Keane Hoy Work Phone: [facility] [address] DO Work Phone: 02-23-2021 09:42-0400 Body height 165.1 cm Zeny Keane Hoy Work Phone: [facility] [address] DO Work Phone: 02-23-2021 09:42-0400 Body mass index (BMI) [Ratio] 31.62 kg/m2 Zeny Keane Hoy Work Phone: [facility] [address] DO Work Phone: 02-23-2021 09:42-0400 Body surface area Derived from formula 1.94 m2 Zeny Lakhwinder Hoy Work Phone: [facility] [address] DO Work Phone: 02-23-2021 09:42-0400 Body weight 86.18 kg Zeny Keane Hoy Work Phone: [facility] [address] DO Work Phone: 02-23-2021 09:42-0400 Diastolic blood pressure 82 mm[Hg] Zeny Keane Hoy Work Phone: [facility] [address] DO Work Phone: 02-23-2021 09:42-0400 Heart rate 62 /min Zeny Keane Hoy Work Phone: [facility] [address] DO Work Phone: 02-23-2021 09:42-0400 Systolic blood pressure 126 mm[Hg] Zeny Lakhwinder Hoy Work Phone: [facility] [address] DO Work Phone: Encounters Encounter Date Encounter Type Care Provider Facility Start: 10-10-2023 End: 10-11-2023 ambulatory Huma Shannon Facility:[facility] Start: 10-10-2023 End: 10-10-2023 Patient encounter procedure Huma Shannon [facility] Start: 05-20-2023 End: 05-21-2023 ambulatory Federico FRANCIS Facility:[facility] Start: 05-20-2023 End: 05-20-2023 Patient encounter procedure Federico FRANCIS General Surgery [facility] Start: 05-05-2023 ambulatory Huma Shannon Facility:[facility] Start: 02-28-2023 End: 02-28-2023 [facility] Start: 02-28-2023 End: 02-28-2023 Office outpatient visit 15 minutes Bradly Tanner MD Work Phone: [facility] Comment on above: Palpitation (Primary Dx); Paroxysmal atrial tachycardia; Premature ventricular contractions; Class 1 obesity; Primary hypertension; Hyperlipidemia, unspecified hyperlipidemia type Start: 10-31-2022 ambulatory SHANE FINNEY . Facili ty:[facility] Start: 10-15-[address] ZENY STANLEY . Facili ty:[facility] Start: 10-01-2022 End: 10-02-2022 ambulatory ANA KHALIL . Facility:[facility] Start: 07-31-2022 End: 08-01-2022 ambulatory RAY WEINSTEIN Facility:[facility] Start: 03-20-2022 End: 03-21-2022 ambulatory RAY WEINSTEIN Facility:[facility] Start: 03-08-2022 Rx Renewal Zeny Stanley Work Phone: [facility] [address] DO Work Phone: Start: 03-01-[address] Bradly Tanner Facility: Start: 03-01-2022 Office outpatient vi sit 15 minutes Zeny Stanley Work Phone: [facility] [address] DO Work Phone: Start: 02-19-2022 End: 02-20-[address] ANANTH VALENTINE Facility:[facility] Start: 02-04-2022 End: 02-05-[address] BRADLY TANNER Facility:[facility] Start: 01-22-2022 End: 01-23-2022 ambulatory CRISTIANTRANG SIMEONEN Facility:[facility] Start: 01-02-2022 End: 01-03-[address] ANANTH VALENTINE Facility:[facility] Start: 12-27-2021 End: 12-28-2021 ambulatory CRISTIAN SIMEONEN Facility:[facility] Start: 11-29-2021 End: 11-30-2021 ambulatory CRISTIAN ROBERTO Facility:[facility] Start: 10-04-2021 End: 10-04-2021 Patient encounter procedure Huma J Shiva [facility] Start: 02-23-2021 Patient encounter procedure Zeny M Hoy Work Phone: [facility] 250 DO Work Phone: Start: 02-27-2018 End: 03-13-2018 Patient encounter JENNIFER BOND GRZEGORZ [facility] [place] Procedures Date Procedure Procedure Detail Performing [...] Screening for malign ant neoplasm of colon [facility] Start: 03-19-2024 End: 03-19-2024 Patient encounter procedure 03/19/2024 10:20 AM EDT Office Visit [facility] [address] [facility] [address] [place] [id number] Bradly Tanner MD [address] [place] [address] [facility] Start: 02-28-2023 FUV, Provider: Bradly Tanner, Status: Pen, Time: 9:20 AM FUV, Provider: Bradly Tanner, Status: Pen, Time: [facility]:[address] [facility] Work Phone: Start: 01-24-2023 Influenza vaccination Influenz a Vaccine (#1) [facility] Start: 07-12-2022 Screening for osteoporosis Bone Density Scan [facility] Start: 04-22-2022 COVID-19 Vaccine (4 - Pfizer series) COVID-19 Vaccine (4 - Pfizer series) [facility] Start: 03-01-2022 FUV, Provider: Bradly Tanner, Status: Pen, Time: 9:30 AM FUV, Provider: Bradly Tanner, Status: Pen, Time: 9:[address] [facility] Work Phone: Start: 1990 Screening for malign ant neoplasm of breast Mammogram [facility] Start: 02-27-1972 DTaP/Tdap/Td Vaccine s (1 - Tdap) DTaP/Tdap/Td Vaccines (1 - Tdap) [facility] Start: 02-27-1968 Diabetes mellitus screening Diabetes Screening [facility] Start: 02-27-1968 Hepatitis C screening Hepatitis C [facility] Start: 1950 Lipid panel Lipid Panel [facility] Start: 1950 Screening for malign ant neoplasm of colon [facility] Start: 1950 Yearly Adult Physical Yearly Adult P hysical [facility] Immunizations Immunization Date Immunization Notes Care Provider Harper storm 03-26-2023 influenza virus vaccine, unspecified formulation Federico FRANCIS [facility] 03-26-2022 Flu vaccine, quadrivalent, high-dose, preservative free, age 65y+ (FLUZONE) Bradly Tanner MD Work Phone: [facility] Work Phone: 03-26-2022 influenza virus vaccine, unspecified formulation Bradly Tanner MD Work Phone: [facility] Work Phone: 02-25-2022 Pfizer COVID-19 Vac Bivalent 30 MCG/0.3ML Intramuscular Suspension Zeny Stanley Work Phone: [facility] 250 DO Work Phone: Comment on above: Series: 05-11-2021 SARS-CoV-2 (COVID-19 ) mRNA BNT-162b2 vaольга FRANCIS [facility] 03-19-2021 Influenza, Seasonal, Quadrivalent, Adjuvanted Bradly Tanner MD Work Phone: [facility] Work Phone: 08-04-2020 zoster vaccine recombinant Bradly Tanner MD Work Phone: [facility] Work Phone: 07-19-2020 SARS-CoV-2 (COVID-19 ) mRNA BNT-162b2 ezekiel FRANCIS [facility] Comment on above: Result Comment: 2022: [id number] 06-28-2020 SARS-CoV-2 (COVID-19 ) mRNA BNT-162b2 ezekiel FRANCIS [facility] [place] Comment on above: Result Comment: 2022: [id number] 04-11-2020 zoster vaccine recombinant Bradly Tanner MD Work Phone: [facility] Work Phone: 04-21-2019 pneumococcal polysaccharide vaccine, 23 valbobby Tanner MD Work Phone: [facility] Work Phone: 03-26-2019 influenza virus vaccine, unspecified formulation Zeny Stanley Work Phone: [facility] 983 DO Work Phone: 03-09-2019 influenza, high dose seasonal, preservative-free Bradly Tanner MD Work Phone: [facility] Work Phone: 08-13-2018 pneumococcal polysaccharide vaccine, 23 valent Bradly Tanner MD Work Phone: [facility] Work Phone: 05-26-2018 pneumococcal conjuga te vaccine, 13 valent Zeny Stanley Work Phone: [facility] 250 DO Work Phone: 04-08-2018 influenza, injectabl e, quadrivalent, preservative free Bradly Tanner MD Work Phone: [facility] Work Phone: 05-26-2017 pneumococcal polysaccharide vaccine, 23 valent Zeny Stanley Work Phone: [facility] 449 DO Work Phone: 04-04-2015 influenza, seasonal, injectable, preservative free Bradly Tanner MD Work Phone: [facility] Work Phone: 04-01-2014 influenza, injectabl e, quadrivalent, contains preservative Bradly Tanner MD Work Phone: [facility] Work Phone: 03-19-2013 influenza, seasonal, injectable Bradly Tanner MD Work Phone: [facility] Work Phone: Payers Date Payer Category Payer Unknown 2015 Medicare MEDICARE MEDICAR E PART A AND B [id number] 2015-Present [address] [place] [address] [id number] 1959 Medicare [id number] 1959 Unknown [id number] 1950 Unknown [id number] 1950 Unknown [id number] 2.16.840.1.204197.3.579.2.593 1950 Unknown [id number] 2.16.840.1.263672.3.579.2.593 1950 Unknown [id number] 2.16.840.1.730026.3.579.2.593 1950 Unknown [id number] 2.16.840.1.401300.3.579.2.593 1950 Unknown [id number] 2.16.840.1.034936.3.579.2.593 1950 Unknown [id number] 2.16.840.1.663328.3.579.2.593 1950 Unknown [id number] 2.16.840.1.003875.3.579.2.593 1950 Unknown [id number] 2.16.840.1.136164.3.579.2.593 1950 Unknown [id number] 2.16.840.1.536083.3.579.2.593 1950 Unknown [id number] 2.16.840.1.606840.3.579.2.593 1950 Unknown [id number] 2.16.840.1.422805.3.579.2.593 1950 Unknown [id number] 2.16.840.1.867659.3.579.2.1244 1950 Unknown [id number] 2.16.840.1.123931.3.579.2.727 1950 Unknown [id number] 2.16.840.1.968832.3.579.2.727 Social History Date Type Detail Facility Start: 02-28-2023 Alcohol use [facility] use -[facility] Work Phone: Start: 07-23-2021 End: 05-20-2023 Tobacco smoking status Never smoked tobacco (finding) [facility] Tobacco smoking status Never [facility] Start: 02-28-2023 Sex Assigned At Female F [facility] Start: 02-28-2023 Tobacco use and exposure Smokeless tobacco non-user [facility] Work Phone: Start: 02-28-2023 Alcohol intake Ex-drinker (finding) [facility] Work Phone: Start: 1950 Sex Assigned At Not on file U [facility] Work Phone: Start: 02-18-2023 End: 02-28-2023 Exposure to SARS-CoV-2 (event) Not sure [facility] Functional Status Date Assessment Result Facility [...] virus vaccine, inactivated 03/26/2023 Recorded SARS-CoV-2 (COVID-19) [id number] 02/25/2022 Recorded SARS-CoV-2 (COVID-19) mRNA BNT-162b2 vax 05/11/2021 Recorded SARS-CoV-2 (COVID-19) mRNA BNT-162b2 vax 07/19/2020 Recorded 2023-05-09: [id number] SARS-CoV-2 (COVID-19) mRNA BNT-162b2 vax 06/28/2020 Recorded 2023-05-09: [id number] [facility] Comment on above: Result Comment: Elec [...] unspecified hyperlipidemia type documented in this encounter [facility] Work Phone: 02-28-2023 Instructions Nina Stewart [...] up 9 month documented in this encounter [facility] Work Phone: 10-01-2022 Note CONSULTATION CONSULTATION [...] our patients to inform us about any otjz-tam-ptdydxo medications or herbal remedies/nutritional supplements/alternative remedies. 2. [...] options with their primary care provider. [facility] 07-31-2022 Note PROCEDURE: XR FOOT L T [...] by: ANANTH VALENTINE Date: 2022-07-31 10:34 [facility] 03-20-2022 Note PROCEDURE: XR FOOT L T [...] by: NEPTALI GOODE Date: 2022-03-20 21:30 [facility] 02-19-2022 Note PROCEDURE: XR FOOT L T [...] by: ANANTH VALENTINE Date: 2022-02-19 18:22 [facility] 01-22-2022 Note PROCEDURE: XR FOOT L T [...] by: NEPTALI GOODE Date: 2022-01-22 10:35 [facility] 01-02-2022 Note PROCEDURE: XR FOOT L T [...] by: ANANTH VALENTINE Date: 2022-01-02 16:27 [facility] 12-28-2021 Note PROCEDURE: XR FOOT L T [...] by: NEPTALI GOODE Date: 2021-12-28 07:39 [facility] 11-30-2021 Note PROCEDURE: XR FOOT L T [...] by: NEPTALI GOODE Date: 2021-11-30 08:48 [facility] Evaluation + Plan note No data available for this section [facility] Evaluation note Diagnosis Palpitation- Primary Palpitations Paroxysmal atrial tachycardia Paroxysmal supraventricular tachycardia Premature ventricular contractions Other premature beats Class 1 obesity Primary hypertension Unspecified essential hypertension Hyperlipidemia, unspecified hyperlipidemia type documented in this encounter [facility] Work Phone: History of Present illness [...] will see her back in 1 year [facility] 250 DO Work Phone: History of Present [...] year plan to repeat her lab work [facility] [address] DO Work Phone: Hospital Discharge instructions No data available for this section [facility] No data available for this section General [facility] [place] Reason for referral (narrative)* Consultation (Routine) - Authorized Specialty Diagnoses / Procedures Referred By Corrie t Referred To Contact Cardiology Diagnoses Paroxysmal atrial tachycardia Premature ventricular contractions Procedures Follow Up In Cardiology Bradly Tanner MD [address] [facility], [address] [address] Referral ID Status Reason Start Date Expiration Date V isits Requested Visits Authorized [id number] Authorized 02/28/2023 08/27/2023 1 1 [facility] Work Phone: Summary Purpose Family [...] section and content) DATE CREATED AUTHOR 03/27/2018 [facility] DATE CREATED AUTHOR AUTHOR'S ORGANIZ ATION 08/13/2019 [facility] DATE CREATED AUTHOR AUTHOR'S ORGANIZ ATION 03/01/2022 [facility] DATE CREATED AUTHOR AUTHOR'S ORGANIZ ATION 03/02/2022 [facility] DATE CREATED AUTHOR AUTHOR'S ORGANIZ ATION 10/10/2022 [facility] DATE CREATED AUTHOR AUTHOR'S ORGANIZ ATION 03/04/2023 [facility] DATE CREATED AUTHOR AUTHOR'S ORGANIZ ATION 10/12/2023 [facility] DATE CREATED AUTHOR AUTHOR'S ORGANIZ ATION 10/16/2023 [facility] Reason for Visit (unrecogniz ed section and content) Reason Comments Annual Exam 1yr Care Teams (unrecognized sec tion and content) [employer]iller Relationship Specialty Start Date End Date Zeny Stanley MD [address] [facility] [place] [address] PCP - General 06/01/19 FOR RECORDS PERTAINING [...] BE BASED ON THE PRIMARY CLINICAL RECORDS. [facility]. provides no warranty or guarantee of the accuracy or completeness of information in this document.
--- NOTE | 2023-10-23 10:42 | P.CN_ITS ---
Consult Note: HPI Data of Consult Patient: known to practice within the last 3 years Requesting Physician: Flori Ott NP Primary Care Provider: Familia Stanley MD Consult Narrative Reason for consult: injection f/u Narrative: Kay evans pleasant 73 year old female presents for evaluation and management of chronic bilateral knee pain. Today pain 0/10, increasing with ambulation. Patient noticing increase in pain with stairs, activity, weather changes, improved with sitting, wearing her brace. Recently underwent left durolane injection with significant improvement ongoing. Last right knee injection 04/29/23 has provided moderate to significant improvement in pain and functional ability, but patient feels pain and function worsening at this time. cc:: CC: Flori Ott NP Review of Systems ROS Status of ROS 10 or more systems reviewed and unremark able except as noted in history and below Musculoskeletal Reports: joint pain PFSH PFSH Medical History Irregular heart beat ?I49.9 - Cardiac arrhythmia, unspecified (ICD-10) Hypercholesterolemia ?E78.00 - Pure hypercholesterolemia, unspecified (ICD-10) Osteoarthritis ?M19.90 - Unspecified osteoarthritis, unspecified site (ICD-10) Hypertension ?I10 - Essential (primary) hypertension (ICD-10) Surgical History H/O vein stripping ?Z98.890 - Other specified postprocedural states (ICD-10) H/O: hysterectomy ?Z90.710 - Acquired absence of both cervix and uterus (ICD-10) Hx of tonsillectomy ?Z90.89 - Acquired absence of other organs (ICD-10) Hx of cataract surgery ?Z98.49 - Cataract extraction status, unspecified eye (ICD-10) Hx of appendectomy ?Z90.49 - Acquired absence of other specified parts of digestive tract (ICD- 10) Meds Home Medications and Allergies Home Medications ?Medication ?Instructions ?Recorded ?Confirmed ?Type alendronate 70 mg tablet (Fosamax) 70 mg PO QWEEK 10/31/22 10/14/23 History amitriptyline 75 mg tablet 75 mg PO DAILY 10/31/22 10/14/23 History calcium carbonate (Calcium 600) 600 mg PO BID 10/31/22 06/17/23 History metoprolol tartrate 50 mg tablet 50 mg PO BID 10/31/22 10/14/23 History multivitamin 1 tab PO DAILY 10/31/22 10/14/23 History simvastatin 20 mg tablet 20 mg PO DAILY 10/31/22 10/14/23 History spironolactone 25 mg tablet 25 mg PO DAILY 10/31/22 10/14/23 History lisinopril 5 mg tablet 5 mg PO DAILY 06/17/23 10/14/23 History Allergies Allergy/AdvReac Type Severity Reaction Status Date / Time No Known Drug Allergies Allergy Verified 06/17/23 08:41 Exam Constitutional Documenting provider has reviewed patient's vital signs: yes Common normals: no apparent distress, oriented x3, healthy appearing, alert and well nourished General appearance: cooperative HENMT Common normals: normocephalic, hearing grossly normal bilaterally and moist oral mucous membranes Head and scalp: normocephalic Eye Common normals: PERRL Pupil: PERRL Neck & C-Spine Common normals: full ROM General: normal visual inspection Chest Common normals: inspection of chest normal Respiratory Common normals: normal respiratory effort, no retractions and no use of accessory muscles Extremity Right lower extremity: knee joint Left lower extremity: knee joint Other: right and left knee enlarged diameter positive lateral stress testing and crepitus to bilateral knee no redness edema present Neuro Common normals: oriented x3, CN's II-XII intact bilaterally, moves all extremities, no focal motor deficits, no sensory deficits noted and deep tendon reflexes 2+ bilaterally Sensorium/orientation: alert Motor exam: strength 5/5 throughout and no movement abnormalities noted Psych Common normals: mental status grossly normal, thought process normal, cooperative, affect normal, speech normal and activity/motor behavior normal Speech: normal speech Thought process: normal thought process Results Additional Findings Additional findings: If on a controlled substance or opioids, I have checked an OARRS report on this patient and there are no aberrancies noted in the prescribing history.??If on a controlled substance or opioid a drug screen was completed and reviewed within the last year, and if there has not been a drug screen completed we ordered one today to monitor higher risk, state monitored pain medication use. As part of providing excellent, safe, comprehensive care, the following was completed at our patient's visit: 1. A medication reconciliation and review to ensure accurate knowledge of current/active medications, including asking our patients to inform us about any mimf-rda-qnthyxx medications or herbal remedies/nutritional supplements/alternative remedies. 2. A review to specifically ensure our patients have had annual screening for screening for depression, screening for tobacco use, and screening for unhealthy alcohol use. For concerning screenings had a discussion with the patient, provided patient education, and recommended follow-up with primary care provider when appropriate. If patient noted with a risk of falling, they received education on strength, gait, and balance training to prevent future risk of falling. Assessment and Plan Assessment and Plan (1) Osteoarthritis of left knee: Assessment and Plan: previous gel injection provided >50% improvement in pain greater than 3 months, would like to repeat (2) Left knee pain: (3) Right knee pain: Assessment and Plan: >50% improvement in pain from prior injection (4) Knee osteoarthritis: Plan repeat right durolane injection no relief from bilateral genicular nerve block, patient still not interested in knee surgery for OA. continue current medication regimen, finding benefit without side effects f/u after injection
== END 2023-10-23 10:29 | disposition home or self-care (01) ==
LOC: PM 10:28
PROVIDERS: PCP Family Medicine; Visit Provider Nurse Practitioner
DX: M25.562 Pain in left knee (principal); M25.561 Pain in right knee; M17.0 Bilateral primary osteoarthritis of knee
CPT/HCPCS: G0463

== ENCOUNTER 2023-11-11 08:25 | Day surgery (SDC) | payer MEDICARE, BC, SELFPAY ==
[2023-11-11 08:42] VITALS: BP 138/79; PULSE 74; TEMP 36.2; O2SAT 98
[2023-11-11 09:23] VITALS: BP 140/64; PULSE 69; O2SAT 97
[2023-11-11 09:26] VITALS: BP 172/73; PULSE 67; O2SAT 98
[2023-11-11] MEDS: HYALURONATE SODIUM, STABILIZED 60 MG/3 ML SYRINGE IU (09:33)
[2023-11-11] MEDS: IOHEXOL 240 MG/ML - 10 ML VIAL 12 MG INJ (09:33)
[2023-11-11] MEDS: LIDOCAINE HCL 2% PF 100 MG/5 ML VIAL INJ (09:33)
--- NOTE | 2023-11-11 09:45 | W.PM.PROCNOT ---
Date of procedure: 11/11/23 Pre-op diagnosis: Right knee osteoarthritis Post-op diagnosis: same as pre-op Procedure: Procedure: Right knee joint injection using Durolane 3ml. Immediate complications none. Anesthesia: 2% lidocaine plain for skin wheal. After informed consent was obtained, patient brought to the OR placed in the supine position. Skin overlying the area was prepped and draped using Betadine. 25-gauge 1/2 inch needle was used for skin wheal over the medial aspect of the knee joint identified under fluoroscopy. Omnipaque dye was used to confirm needle tip placement within the knee joint space 0.5 mL use of the injection. Subsequently 3ml of durolane was injected into the space. No indication of intravascular or intraneuronal needle tip placement or injection was noted post procedure. The needle was removed, patient transferred to Recovery room in stable condition to discharged home after meeting criteria. Anesthesia: Local Surgeon: Vannesa Cummins Condition: stable
== END 2023-11-11 09:38 | disposition home or self-care (01) ==
LOC: SURGOUT 08:27
PROVIDERS: PCP Family Medicine; Visit Provider Anesthesiology Pain Medicine
DX: M17.11 Unilateral primary osteoarthritis, right knee (principal)
CPT/HCPCS: 20610; 77002; J7318; Q9966

== ENCOUNTER 2023-11-20 09:24 | Outpatient (OUT) | payer MEDICARE, BC, SELFPAY ==
--- NOTE | 2023-11-20 09:46 | P.CN_ITS ---
Consult Note: HPI Data of Consult Patient: known to practice within the last 3 years Requesting Physician: Flori Ott NP Primary Care Provider: Familia Stanley MD Consult Narrative Reason for consult: injection f/u Narrative: Kay evans pleasant 73 year old female presents for evaluation and management of chronic bilateral knee pain. Today pain 0/10, increasing to 2/10 with ambulation. Patient noticing increase in pain with stairs, activity, weather changes, improved with sitting, wearing her brace. recently underwent right knee durolane injection with >90% improvement ongoing, prior left knee durolane injection providing >80% improvement ongoing. continues to utilize topical diclofenac gel with mild benefit. cc:: CC: Flori Ott NP Review of Systems ROS Status of ROS 10 or more systems reviewed and unremark able except as noted in history and below Musculoskeletal Reports: joint pain PFSH PFSH Medical History Irregular heart beat ?I49.9 - Cardiac arrhythmia, unspecified (ICD-10) Hypercholesterolemia ?E78.00 - Pure hypercholesterolemia, unspecified (ICD-10) Osteoarthritis ?M19.90 - Unspecified osteoarthritis, unspecified site (ICD-10) Hypertension ?I10 - Essential (primary) hypertension (ICD-10) Surgical History H/O vein stripping ?Z98.890 - Other specified postprocedural states (ICD-10) H/O: hysterectomy ?Z90.710 - Acquired absence of both cervix and uterus (ICD-10) Hx of tonsillectomy ?Z90.89 - Acquired absence of other organs (ICD-10) Hx of cataract surgery ?Z98.49 - Cataract extraction status, unspecified eye (ICD-10) Hx of appendectomy ?Z90.49 - Acquired absence of other specified parts of digestive tract (ICD- 10) Meds Home Medications and Allergies Home Medications ?Medication ?Instructions ?Recorded ?Confirmed ?Type amitriptyline 75 mg tablet 75 mg PO DAILY 10/31/22 11/11/23 History calcium carbonate (Calcium 600) 600 mg PO BID 10/31/22 11/11/23 History metoprolol tartrate 50 mg tablet 50 mg PO BID 10/31/22 11/11/23 History multivitamin 1 tab PO DAILY 10/31/22 11/11/23 History simvastatin 20 mg tablet 20 mg PO DAILY 10/31/22 11/11/23 History spironolactone 25 mg tablet 25 mg PO DAILY 10/31/22 11/11/23 History lisinopril 5 mg tablet 5 mg PO DAILY 06/17/23 11/11/23 History Allergies Allergy/AdvReac Type Severity Reaction Status Date / Time No Known Drug Allergies Allergy Verified 06/17/23 08:41 Exam Constitutional Documenting provider has reviewed patient's vital signs: yes Common normals: no apparent distress, oriented x3, healthy appearing, alert and well nourished General appearance: cooperative HENMT Common normals: normocephalic, hearing grossly normal bilaterally and moist oral mucous membranes Head and scalp: normocephalic Eye Common normals: PERRL Pupil: PERRL Neck & C-Spine Common normals: full ROM General: normal visual inspection Chest Common normals: inspection of chest normal Respiratory Common normals: normal respiratory effort, no retractions and no use of a ccessory muscles Extremity Right lower extremity: knee joint Left lower extremity: knee joint Other: right and left knee enlarged diameter positive lateral stress testing and crepitus to bilateral knee no redness edema present Neuro Common normals: oriented x3, CN's II-XII intact bilaterally, moves all extremities, no focal motor deficits, no sensory deficits noted and deep tendon reflexes 2+ bilaterally Sensorium/orientation: alert Motor exam: strength 5/5 throughout and no movement abnormalities noted Psych Common normals: mental status grossly normal, thought process normal, cooperative, affect normal, speech normal and activity/motor behavior normal Speech: normal speech Thought process: normal thought process Results Additional Findings Additional findings: If on a controlled substance or opioids, I have checked an OARRS report on this patient and there are no aberrancies noted in the prescribing history.??If on a controlled substance or opioid a drug screen was completed and reviewed within the last year, and if there has not been a drug screen completed we ordered one today to monitor higher risk, state monitored pain medication use. As part of providing excellent, safe, comprehensive care, the following was completed at our patient's visit: 1. A medication reconciliation and review to ensure accurate knowledge of current/active medications, including asking our patients to inform us about any foho-lrr-ixdqakm medications or herbal remedies/nutritional supplements/alternative remedies. 2. A review to specifically ensure our patients have had annual screening for screening for depression, screening for tobacco use, and screening for unhealthy alcohol use. For concerning screenings had a discussion with the patient, provided patient education, and recommended follow-up with primary care provider when appropriate. If patient noted with a risk of falling, they received education on strength, gait, and balance training to prevent future risk of falling. Assessment and Plan Assessment and Plan (1) Knee osteoarthritis: (2) Right knee pain: (3) Osteoarthritis of left knee: (4) Left knee pain: Plan >90% improvement ongoing from right knee durolane injection, left knee durolane injection >80% improvement ongoing no relief from bilateral genicular nerve block, patient still not interested in knee surgery for OA. continue current medication regimen, finding benefit without side effects f/u 3-6 months, sooner if needed
== END 2023-11-20 09:25 | disposition home or self-care (01) ==
LOC: PM 09:24
PROVIDERS: PCP Family Medicine; Visit Provider Nurse Practitioner
DX: M17.0 Bilateral primary osteoarthritis of knee (principal); M25.562 Pain in left knee; M25.561 Pain in right knee
CPT/HCPCS: G0463

== ENCOUNTER 2024-06-01 11:59 | Outpatient (OUT) | payer MEDICARE, OTHER, SELFPAY ==
--- NOTE | 2024-06-01 | CONS_ITS ---
CONSULTATION DATE: 06/01/2024 TO: Dr. Stanley HISTORY: Patient returns today complaining of pain right knees, rated 1-2/10 pain, dull aching in character, which seems to increase with activities such as prolonged walking. She feels most comfortable in the semi-recumbent position. Denies any change in bowel and bladder habits or new sensorimotor changes in the lower extremities. She continues to use diclofenac gel to her right knee on a daily basis. EXAM: Her examination is notable for patient having a non-focal sensorimotor exam of the lower extremities. She has a moderate amount of crepitus of her right knee joint. She has mild tenderness involving her gastrocnemius muscle on the right side. IMPRESSION: Our impression is patient with chronic pain. She has undergone a Durolane injection on 11/11/2023. She continues to do quite well. RECOMMENDATIONS: I recommend no further intervention for her current pain symptoms. I prefer her to return to our office on an as needed basis. As part of providing excellent, safe, comprehensive care, the following was completed at our patient's visit: 1. A medication reconciliation and review to ensure accurate knowledge of current/active medications, including asking our patients to inform us about any qapt-aik-ixseyzt medications or herbal remedies/nutritional supplements/alternative remedies. 2. A review to specifically ensure our patients have had annual screening for: elevated body mass index (BMI, see intake chart for exact total), tobacco use, screening for depression, and screening for unhealthy alcohol use. When screening is concerning, patients are provided with education and the specific recommendation to discuss the concerning health issue and treatment options with their primary care provider. JANICE
== END 2024-06-01 12:00 | disposition home or self-care (01) ==
LOC: PM 12:00
PROVIDERS: PCP Family Medicine; Visit Provider Anesthesiology Pain Medicine
DX: G89.4 Chronic pain syndrome (principal)
CPT/HCPCS: G0463

== ENCOUNTER 2024-12-09 09:20 | Outpatient (OUT) | payer MEDICARE, OTHER, SELFPAY ==
--- OUTSIDE RECORDS SUMMARY | 2024-11-24 23:59 | XMS_ITS | Continuity of Care Document ---
Author Organization [facility] Address Unknown Care Team Providers Care Jute Bag Sewer Name Role Phone Mayo Collins V. Primary Care Physician [phone] Encounter [facility] [id number] Date(s): 11/24/24 - 11/24/24 [place] [id number] Discharge Disposition: Home Attending Physician: Mayo Collins MD Admitting Physician: Mayo Collins MD Encounter Type: OP Allergies, Adverse Reactions, Alerts No Known Allergies Assessment and Plan Extracted from: Title:Vein Author:Kip Thao RN Date:11/24/24 Risks and benefits of the pr ocedure were discussed at length and informed written consent was obtained. Timeout procedure was performed and the correct patient and procedure were confirmed. Staff present during timeout: Kip Thao RN and Dr. [place]. Patient prepped and procedure performed in usual sterile fashion. Injections performed by Kip Thao RN and Dr. [place] Sclerosing Agent: 4cc 0.5% Polidocanol Site Injected: Leftleg Number of injections: 17 The patient tolerated the procedure well, without complication. Hemostasis was obtained and thigh high compression stocking applied. Instructed patient to wear stocking for at least 96 hours only removing it to shower. Patient will wear stocking for a combined total of 2 weeks. The patient verbalizes understanding and states they will comply. Patient given post-procedure instructions. Patient d/c in good condition. Future Appointments Future Scheduled Tests Radiology* US Injection Spider Veins 11/30/24 Medications amitriptyline 10 mg oral tablet 2 tab(s) ( 20 mg ), Oral, Once a day (at bedtime), # 60 tab(s), 0 Refill(s) Start Date: 09/15/24 Status: Ordered Quantity: 60.0 Unit: tab(s) Repeat number: 1 lisinopril 10 mg oral tablet 1 tab(s) ( 10 mg ), Oral, Daily, # 30 tab(s), 0 Refill(s) Start Date: 09/15/24 Status: Ordered Quantity: 30.0 Unit: tab(s) Repeat number: 1 metoprolol succinate 25 mg oral tablet, extended release 1 tab(s) ( 25 mg ), Oral, Daily, # 30 tab(s), 0 Refill(s) Start Date: 09/15/24 Status: Ordered Quantity: 30.0 Unit: tab(s) Repeat number: 1 simvastatin 20 mg oral tablet 1 tab(s) ( 20 mg ), Oral, Once a day (at bedtime), # 30 tab(s), 0 Refill(s) Start Date: 09/15/24 Status: Ordered Quantity: 30.0 Unit: tab(s) Repeat number: 1 spironolactone 25 mg oral tablet 1 tab(s) ( 25 mg ), Oral, BID, # 60 tab(s), 0 Refill(s) Start Date: 09/15/24 Status: Ordered Quantity: 60.0 Unit: tab(s) Repeat number: 1 Problem List Condition Confirmation Course Effective Dates Status Health St atus Informant Edema leg 1 Confirmed Active Hypertension Confirmed Active Irregular heart beat Confirmed Active 1bilateral lower legs Procedures Procedure Date Related Diagnosis Body Site Status Sclerotherapy 11/10/24 Completed Sclerotherapy 1 10/26/24 Completed Chemical ablation 2 10/13/24 Compl eted Chemical ablation 3 09/28/24 Compl eted Chemical ablation 4 Compl eted Endovenous laser ablation of varicose vein 5 Completed Sclerotherapy 6 Completed 1sclerotherapy right leg 2microfoam chemical ablation rightleg 3microfoam chemical ablation left leg 4bilateral legs 5Right GSV, Right SSV left GSV 6left leg sclerotherapy Results Radiology Reports * Exam Date Time Procedure Performing Provider Status 11/24/24 10:38 AM US Injection Spider Veins Auth (Verified) Notes: (US Injection Spider Veins) Reason For Exam: Varicose veins of bilateral lower extremities with pain REPORT EXAMINATION: US Injection Spider Veins HISTORY: Varicose veins of bilateral lower extremities with pain COMPARISON: No relevant comparison available. TECHNIQUE: The risks and benefits of the procedure were explained at length to the patient and informed written consent was obtained. Kip Thao was present and assisted. The procedure was performed under sterile technique. The patient's leg was wrapped with Coban and postprocedural verbal and written instructions provided. SCLEROSANT: 4 cc, 0.5% polidocanol VEIN(S) INJECTED: 17 veins in the left leg VISUALIZATION: Ultrasound was not used to visualize the sclerosant ANESTHESIA: Supercooled air COMPLICATIONS: None IMPRESSION: Technically successful sclerotherapy as described Final Dictated by: Mayo Collins MD Dictated DT/TM: 11/24/24 12:02 Signed (Electronic Signature): Mayo Collins MD 11/24/24 12:03 p Technologist: GENE Social History Social History Type Response Tobacco Never tobacco user T obacco Use:. Sex Sex Representation Female (finding) Hospital Discharge Instructions Patient Education 11/24/2024 09:28:34 Sclerotherapy Sclerotherapy Sclerotherapy is a procedure that is done to make varicose veins and spider veins look better and it helps to relieve aching, swelling, cramping, and pain in the legs. Varicose veins are veins that have become enlarged, bulging, and twisted due to a damaged valve that causes blood to collect (pool)in the veins. Spider veins are small varicose veins. Sclerotherapy is usually done on the legs where varicose and spider veins occur most of the time. Sclerotherapy usually works best for smaller spider and varicose veins. This procedure involves putting a chemical directly into the lining of the vein, causing it to swell and stick together. Over time, the vessel turns into scar tissue that fades from view. You may need more than one treatment toclose a vein all the way. The number of veins treated in one session depends on the size and location of the veins, and on your overall medical condition. Tell a health care provider about: • Any allergies you have. • All medicines you are taking, including vitamins, herbs, eye drops, creams, and ebrg-brd-iilxypg medicines. • Any bleeding problems you have. • Any surgeries you have had. • Any medical conditions you have. • Whether you are or may be . What are the risks? Your health care provider will talk with you about risks. These may include: • Infection. • Bleeding or blood clots. • Allergic reactions to medicines or to the chemicals being used, which are called sclerosing agents. • Larger treated veins becoming lumpy or hard. This may last for several months before getting better. • Small sores (ulcers) forming at the injection site. • Red streaking in the groin area or bruising around the injection site. • Brown lines or spots at the injection site. These usually disappear within 3 to 6 months, but in rare cases they can be permanent. What happens before the procedure? Medicines Ask your health care provider about: • Changing or stopping your regular medicines. These include any diabetes medicines or blood thinners you take. • Taking medicines such as aspirin and ibuprofen. These medicines can thin your blood. Do not take them unless your health care provider tells you to. • Taking pygl-lxb-mguowpk medicines, vitamins, herbs, and supplements. Tests • You may have an ultrasound of the affected area to check for blood clots and to check blood flow. • In rare cases, you may have an X-ray procedure to check how blood flows through your veins (angiogram). For an angiogram, a dye is injected to highlight your veins on X-rays. General instructions • Do not use lotions or creams on your legs before the procedure unless your health care providerapproves. • Follow instructions from your health care provider about what you may eat and drink. • Do not use any products that contain nicotine or tobacco before the procedure. These products include cigarettes, chewing tobacco, and vaping devices, such as e-cigarettes. If you need help quitting, ask your health care provider. • Ask your health care provider what steps will be taken to help prevent infection. These steps may include: ◦ Removing hair at the injection site. ◦ Washing skin with a soap that kills germs. What happens during the procedure? • The treatment area will be cleaned. • A small, thin needle is used to inject a chemical (sclerosant) into your varicose or spider veins. The sclerosant will irritate the lining of the vein and cause the vein to close below where the needle was put in. You may feel some stinging, burning, or irritation. • The injection may be repeated for more than one varicose or spider vein. • After the procedure, the area around where the needle was put in will be wrapped with elastic bandages. The procedure may vary among health care providers and hospitals. What can I expect after the procedure? • Your blood pressure, heart rate, breathing rate, and blood oxygen level will be monitored untilyou leave the hospital or clinic. • The area around the injection site will be wrapped with elastic bandages. If there is bleeding,the bandages may be changed. • After the treatment, you will be able to drive yourself home. • Wear compression stockings as told by your health care provider. These stockings help to prevent blood clots and reduce swelling in your legs. Contact a health care provider if: • You have more redness, swelling, or pain around any injection sites. • You have more fluid or blood coming from any injection sites. • Any injection sites feel warm to the touch. • You have pus or a bad smell coming from any injection sites. • You have a fever. Get help right away if: • You have leg pain that gets worse when you walk. • You have redness or swelling in your leg that is getting worse. • You have trouble breathing. • You have chest pain. These symptoms may be an emergency. Get help right away. Call 911. • Do not wait to see if the symptoms will go away. • Do not drive yourself to the hospital. Summary • Sclerotherapy is a procedure that is done to make varicose veins and spider veins look better and it helps to relieve aching, swelling, cramping, and pain in the legs. • A small, thin needle is used to inject a chemical (sclerosant) into a spider vein or varicose vein to close it. • Elastic bandages will be wrapped around any injection sites after the procedure. • Wear compression stockings as told by your health care provider. These stockings help to prevent blood clots and reduce swelling in your legs. This information is not intended to replace advice given to you by your health care provider. Make sure you discuss any questions you have with your health care provider. Document Revised: 08/15/2022 Document Reviewed: 08/15/2022 [employer] Patient Education © 2023 [employer] 11/24/2024 09:28:33 Sclerotherapy Sclerotherapy Sclerotherapy is a procedure that is done to make varicose veins and spider veins look better and it helps to relieve aching, swelling, cramping, and pain in the legs. Varicose veins are veins that have become enlarged, bulging, and twisted due to a damaged valve that causes blood to collect (pool)in the veins. Spider veins are small varicose veins. Sclerotherapy is usually done on the legs where varicose and spider veins occur most of the time. Sclerotherapy usually works best for smaller spider and varicose veins. This procedure involves putting a chemical directly into the lining of the vein, causing it to swell and stick together. Over time, the vessel turns into scar tissue that fades from view. You may need more than one treatment toclose a vein all the way. The number of veins treated in one session depends on the size and location of the veins, and on your overall medical condition. Tell a health care provider about: • Any allergies you have. • All medicines you are taking, including vitamins, herbs, eye drops, creams, and hwuk-vcd-ykldbbn medicines. • Any bleeding problems you have. • Any surgeries you have had. • Any medical conditions you have. • Whether you are or may be . What are the risks? Your health care provider will talk with you about risks. These may include: • Infection. • Bleeding or blood clots. • Allergic reactions to medicines or to the chemicals being used, which are called sclerosing agents. • Larger treated veins becoming lumpy or hard. This may last for several months before getting better. • Small sores (ulcers) forming at the injection site. • Red streaking in the groin area or bruising around the injection site. • Brown lines or spots at the injection site. These usually disappear within 3 to 6 months, but in rare cases they can be permanent. What happens before the procedure? Medicines Ask your health care provider about: • Changing or stopping your regular medicines. These include any diabetes medicines or blood thinners you take. • Taking medicines such as aspirin and ibuprofen. These medicines can thin your blood. Do not take them unless your health care provider tells you to. • Taking vzfw-eup-zmeijde medicines, vitamins, herbs, and supplements. Tests • You may have an ultrasound of the affected area to check for blood clots and to check blood flow. • In rare cases, you may have an X-ray procedure to check how blood flows through your veins (angiogram). For an angiogram, a dye is injected to highlight your veins on X-rays. General instructions • Do not use lotions or creams on your legs before the procedure unless your health care providerapproves. • Follow instructions from your health care provider about what you may eat and drink. • Do not use any products that contain nicotine or tobacco before the procedure. These products include cigarettes, chewing tobacco, and vaping devices, such as e-cigarettes. If you need help quitting, ask your health care provider. • Ask your health care provider what steps will be taken to help prevent infection. These steps may include: ◦ Removing hair at the injection site. ◦ Washing skin with a soap that kills germs. What happens during the procedure? • The treatment area will be cleaned. • A small, thin needle is used to inject a chemical (sclerosant) into your varicose or spider veins. The sclerosant will irritate the lining of the vein and cause the vein to close below where the needle was put in. You may feel some stinging, burning, or irritation. • The injection may be repeated for more than one varicose or spider vein. • After the procedure, the area around where the needle was put in will be wrapped with elastic bandages. The procedure may vary among health care providers and hospitals. What can I expect after the procedure? • Your blood pressure, heart rate, breathing rate, and blood oxygen level will be monitored untilyou leave the hospital or clinic. • The area around the injection site will be wrapped with elastic bandages. If there is bleeding,the bandages may be changed. • After the treatment, you will be able to drive yourself home. • Wear compression stockings as told by your health care provider. These stockings help to prevent blood clots and reduce swelling in your legs. Contact a health care provider if: • You have more redness, swelling, or pain around any injection sites. • You have more fluid or blood coming from any injection sites. • Any injection sites feel warm to the touch. • You have pus or a bad smell coming from any injection sites. • You have a fever. Get help right away if: • You have leg pain that gets worse when you walk. • You have redness or swelling in your leg that is getting worse. • You have trouble breathing. • You have chest pain. These symptoms may be an emergency. Get help right away. Call 911. • Do not wait to see if the symptoms will go away. • Do not drive yourself to the hospital. Summary • Sclerotherapy is a procedure that is done to make varicose veins and spider veins look better and it helps to relieve aching, swelling, cramping, and pain in the legs. • A small, thin needle is used to inject a chemical (sclerosant) into a spider vein or varicose vein to close it. • Elastic bandages will be wrapped around any injection sites after the procedure. • Wear compression stockings as told by your health care provider. These stockings help to prevent blood clots and reduce swelling in your legs. This information is not intended to replace advice given to you by your health care provider. Make sure you discuss any questions you have with your health care provider. Document Revised: 08/15/2022 Document Reviewed: 08/15/2022 [employer] Patient Education © 2023 [employer]. Outpatient Note * Kip Thao RN: PERFORM Event Display: Office/Clinic Note Authored Date: [id number] HECTOR CHAVEZ :1950 Age:74 years Sex:FEMALE Registration Date:11/24/2024 Primary Care Physician: Mayo Collins MD Chief Complaint Additional Information Patient in this day for sclerotherapy left leg Physical Exam Vitals & Measurements HR: 70 (Peripheral) RR: 18 BP: 120/56 SpO2: 98% Assessment/Plan Risks and benefits of the procedure were discussed at length and informed written consent was obtained. Timeout procedure was performed and the correct patient and procedure were confirmed. Staffpresent during timeout: Kip Thao RN and Dr. [place]. Patient prepped and procedure performed in usual sterile fashion. Injections performed by Kip Thao RN and Dr. [place] Sclerosing Agent: 4cc 0.5% Polidocanol Site Injected: Leftleg Number of injections: 17 The patient tolerated the procedure well, without complication. Hemostasis was obtained and thigh high compression stocking applied. Instructed patient to wear stocking for at least 96 hours only removing it to shower. Patient will wear stocking for a combined total of 2 weeks. The patient verbalizes understanding and states they will comply. Patient given post-procedure instructions. Patient d/c in good condition. Patient Education Sclerotherapy Sclerotherapy Problem List/Past Medical History Ongoing Edema leg Hypertension Irregular heart beat Historical No qualifying data Procedure/Surgical History •Sclerotherapy (11/11/2024)•Sclerotherapy (10/27/2024)•Chemical ablation (10/14/2024)•Chemical ablation (09/29/2024)•Chemical ablation•Endovenous laser ablation of varicose vein•Sclerotherapy Medications Unchanged amitriptyline (amitriptyline 10 mg oral tablet)2 tab(s) Oral (given by mouth) once a day (at bedtime). lisinopril (lisinopril 10 mg oral tablet)1 tab(s) Oral (given by mouth) every day. metoprolol (metoprolol succinate 25 mg oral tablet, extended release)1 tab(s) Oral (given by mouth)every day. simvastatin (simvastatin 20 mg oral tablet)1 tab(s) Oral (given by mouth) once a day (at bedtime). spironolactone (spironolactone 25 mg oral tablet)1 tab(s) Oral (given by mouth) 2 times per day. Allergies No known allergies Social History Alcohol Use: Never. Electronic Cigarette/Vaping Electronic Cigarette Use: Never. Substance Use Substance use: Never. Tobacco Never tobacco user Tobacco Use:. Family History Varicosities: Mother. [Electronically Signed on: 11/24/2024 10:28 EDT] Kip Thao RN [Electronically Signed on: 11/24/2024 16:50 EDT] Mayo Collins MD [Verified on: 11/24/2024 16:50 EDT] Mayo Collins MD Patient Care team information Care Team Personnel Name: Mayo Collins MD Position: EMILY RadNet: Radiologist Member Role: Primary Care Physician Address: [address] [place] [address], [address] Telecom: Care Team Related Persons Name: ZORAIDA CHAVEZ Insurance Providers Guarantor name: HECTOR STOCKMASTER Health Plan Information #: 1 Payer: MEDICARE Payer Identifier: NA Member Number: [id number] Group Number: NA Subscriber Identifier: [id number] Relationship to Subscriber: self Coverage Type: MEDICARE Coverage Verification Date: 24 Telecom: [phone] Address: [facility] [address] [place] [address] [place] Health Plan Information #: 2 Payer: [employer] Payer Identifier: NA Member Number: [id number] Group Number: [id number] Subscriber Identifier: [id number] Relationship to Subscriber: self Coverage Type: PRIVATE HEALTH INSURANCE Coverage Verification Date: PRASANTH Telecom: [phone] Address: [facility] [address] [place] [address]
--- OUTSIDE RECORDS SUMMARY | 2024-11-30 23:59 | XMS_ITS | Continuity of Care Document ---
Author Organization [facility] Address Unknown Care Team Providers Care Room Cooler Installer Name Role Phone Mayo Collins V. Primary Care Physician [phone] Encounter [facility] [id number] Date(s): 11/30/24 - 11/30/24 [place] [id number] Encounter Diagnosis Varicose veins of bilateral lower extremities with pain(Discharge Diagnosis) - 11/24/24 Discharge Disposition: Home Attending Physician: Mayo Collins MD Admitting Physician: Mayo Collins MD Encounter Type: OP Allergies, Adverse Reactions, Alerts No Known Allergies Assessment and Plan Extracted from: Title:Vein Author:Kip Thao RN Date:11/30/24 Varicose veins of bilateral lower extremities with pain I83.813 Plan of care complete at this time. Patient to f/u in future as necessary. Medications amitriptyline 10 mg oral tablet 2 [...] Date Related Diagnosis Body Site Status Sclerotherapy 1 11/29/24 Completed Sclerotherapy 11/10/24 Completed Sclerotherapy 2 10/26/24 Completed Chemical ablation 3 10/13/24 Compl eted Chemical ablation 4 09/28/24 Compl eted Chemical ablation 5 Compl eted Endovenous laser ablation of varicose vein 6 Completed Sclerotherapy 7 Completed 1Sclerotherapy right leg 2sclerotherapy right leg 3microfoam chemical ablation rightleg 4microfoam chemical ablation left leg 5bilateral legs 6Right GSV, Right SSV left GSV 7left leg sclerotherapy Results Radiology Reports * Exam Date Time Procedure Performing Provider Status 11/30/24 10:17 AM US Injection Spider Veins Auth (Verified) [...] SCLEROSANT: 4 cc, 0.5% polidocanol VEIN(S) INJECTED: 28 veins in the right leg VISUALIZATION: Ultrasound was not used to visualize the sclerosant ANESTHESIA: Supercooled air COMPLICATIONS: None IMPRESSION: Technically successful sclerotherapy as described Final Dictated by: Mayo Collins MD Dictated DT/TM: 11/30/24 10:42 Signed (Electronic Signature): Mayo Collins MD 11/30/24 10:42 a Technologist: GENE Vital Signs Most recent to oldest [Reference Range]: 1 Peripheral Pulse Rate [60-100 bpm] 74 bp m (11/30/24 10:00 AM) Pulse Site Pulse Oximetry (11/30/24 10:00 AM) Respiratory Rate [14-20 br/min] 16 br/mi n (11/30/24 10:00 AM) Blood Pressure [90-120/60-80 mmHg] 124/7 2mmHg *HI* (11/30/24 10:00 AM) BP Site Left arm (11/30/24 10:00 AM) SpO2 [92-100 %] 98 % (11/30/24 10:00 AM) Social History Social History Type Response Tobacco Never tobacco user T obacco Use:. Sex Sex Representation Female (finding) Hospital Discharge Instructions Patient Education 11/29/2024 10:08:26 Sclerotherapy, Care After Sclerotherapy, Care After After sclerotherapy, it is common to have swelling, bruising, and soreness. You may also have: • Some changes to skin color. • Slight bleeding from where you got your shot (injection site). Follow these instructions at home: The instructions below may help you care for yourself at home. Your health care provider may give you more instructions. If you have questions, ask your health care provider. Injection site care • Follow instructions from your health care provider about how to take care of your injection site. Make sure you: ◦ Wash your hands with soap and water for at least 20 seconds before and after you change your bandage. If you cannot use soap and water, use hand unloading checker. ◦ Change your bandage. • Check the area around any injection sites (injection areas) every day for signs of infection. Check for: ◦ More redness, swelling, or pain. ◦ More fluid or blood. ◦ Warmth. ◦ Pus or a bad smell. Activity • Do light exercise every day, as told by your health care provider. Walking or riding a stationary bike may be good options for you. • Return to your normal activities when your health care provider says that it is safe. Ask what activities are safe for you. General instructions • Take yvas-szt-qerdnea and prescription medicines only as told by your health care provider. • Do not use lotions or creams on your legs unless your health care provider approves. • Do not smoke or use any products that contain nicotine or tobacco before the procedure. If you need help quitting, ask your health care provider. • Wear compression stockings as told by your health care provider. These help to prevent blood clots and reduce swelling in your legs. • Wear loose-fitting clothes on the treatment area. • Avoid being in direct sunlight. This includes avoiding: ◦ Sun tanning. ◦ Using tanning beds. • Do not use hot, wet cloths or any form of heat near the injection site. Contact a health care provider if: • You have more redness, swelling, or pain at any injection area. • You have more fluid or blood coming from any injection site. • Any injection area feels warm to the touch. • You have pus or a bad smell coming from any injection site. • You have a fever. Get help right away if: • You have leg pain that gets worse when you walk. • You have redness or swelling in your leg that is getting worse. • You have trouble breathing. • You have chest pain. Summary • Swelling, bruising, and soreness are common after this procedure. • Check all injection areas every day for signs of infection. • Wear compression stockings as told by your health care provider. These stockings help to prevent blood clots and reduce swelling in your legs. This information is not intended to replace advice given to you by your health care provider. Make sure you discuss any questions you have with your health care provider. Document Revised: 08/15/2022 Document Reviewed: 08/15/2022 MOGL Patient Education © 2024 [employer]. Outpatient Note * Kip Thao RN: MODIFY, PERFORM Event Display: Office/Clinic Note Authored Date: [id number] HECTOR CHAVEZ :1950 Age:74 years Sex:FEMALE Primary Care Physician: Mayo Collins MD Chief Complaint Patient in this day for sclerotherapy Procedure Risks and benefits of the procedure were discussed at length and informed written consent was obtained. Timeout procedure was performed and the correct patient and procedure were confirmed. Staffpresent during timeout: Kip Thao RN and Dr. Collins. Patient prepped and procedure performed in usual sterile fashion. Injections performed by Kip Thao RN and Dr. Collins Sclerosing Agent: 4cc 0.5% Polidocanol Site Injected: Rightleg Number of injections: 28 The patient tolerated the procedure well, without complication. Hemostasis was obtained and thigh high compression stocking applied. Instructed patient to wear stocking for at least 96 hours only removing it to shower. Patient will wear stocking for a combined total of 2 weeks. The patient verbalizes understanding and states they will comply. Patient given post-procedure instructions. Patient d/c in good condition. Assessment/Plan Varicose veins of bilateral lower extremities with pain I83.813 Plan of care complete at this time. Patient to f/u in future as necessary. Patient Education Sclerotherapy, Care After Problem List/Past Medical History Ongoing Edema leg [...] Family History Varicosities: Mother. [Electronically Signed on: 11/30/2024 10:29 EDT] Kip Thao RN [Electronically Signed on: 11/30/2024 15:51 EDT] Mayo Collins MD [Verified on: 11/30/2024 15:51 EDT] Mayo Collins MD Patient Care team information Care Team Personnel Name: Mayo Collins MD Position: [facility] RadNet: Radiologist Member Role: Primary Care Physician Address: [address] [address], [address] [place], [place] [address] Telecom: Care Team Related Persons Name: ZORAIDA CHAVEZ Insurance Providers Guarantor name: [facility]ECTOR [facility] Health Plan Information #: 1 Payer: MEDICARE Payer Identifier: PRASANTH Member Number: [id number] Group Number: PR[employer]ANTH Subscriber Identifier: [id number] Relationship to Subscriber: self Coverage Type: MEDICARE Coverage Verification Date: 24 Telecom: [phone] Address: [place] [address] Health Plan Information #: 2 Payer: [employer] Payer Identifier: PRASANTH Member Number: [id number] Group Number: PR[employer]ANTH Subscriber Identifier: [id number] Relationship to Subscriber: self Coverage Type: PRIVATE HEALTH INSURANCE Coverage Verification Date: PRASANTH Telecom: [phone] Address: [facility] [address] [place] [address]
--- OUTSIDE RECORDS SUMMARY | 2024-12-09 09:23 | XMS_ITS | Clinical Summary ---
Author Organization [facility] Address [address] [place] [address] Care Team Providers Care Secondary Connector Armature Name Role Phone Unavailable Primary Care Provider Unavailabl e Social History Tobacco Use Types Packs/Day Years Used Date Smoking Tobacco: Never Assessed Comments Unknown Sex and Gender Information Value Date Recorded Sex Assigned at Not on file Legal Sex Female 7:23 PM EDT Gender Identity Not on file Sexual Orientation Not on file Last Filed Vital Signs Vital Sign Reading Time Taken Comments Blood Pressure 135/82 07/07/2019 12:00 PM EST Pulse - - Temperature - - Respiratory Rate - - Oxygen Saturation - - Inhaled Oxygen Concentration - - Weight 81.6 kg (180 lb) 11/07/2021 12:00 PM EDT Height 165.1 cm (5' 5 ) 11/07/2021 12:00 PM EDT Body Mass Index 29.95 11/07/2021 12:00 PM EDT Plan of Treatment Not on file Insurance MEDICARE
--- OUTSIDE RECORDS SUMMARY | 2024-12-09 09:23 | XMS_ITS | Encounter Summary ---
Author Organization [facility] Address [address] [place] [address] Phone Care Team Providers Care Manager Oracle Retail Name Role Phone Familia Stanley MD Primary Care Provider [phone] Encounter Details Date Type Department Care Team (Late st Contact Info) Description 10/03/2018 Orders Only [facility] [address] [place] [address] Conversion, Onbase Social History Tobacco Use Types Packs/Day Years Used Date Smoking Tobacco: Never Assessed Comments Unknown Sex and Gender Information Value Date Recorded Sex Assigned at Not on file Legal Sex Female 3:19 AM EST Gender Identity Not on file Sexual Orientation Not on file documented as of this encounter Plan of Treatment Upcoming Encounters Date Type Department Care Team (Late st Contact Info) Description 03/04/2025 10:30 AM EDT Office Visit [place] [id number] [facility] [address] [place] [phone] Robi Tanner MD [address] [facility] [address] [place] [address] Scheduled Orders Name Type Priority Associated Diagnoses Orde r Schedule OUTSIDE LAB SCAN Lab Ordered: 10/03/2018 documented as of this encounter Visit Diagnoses Not on filedocumented in this encounter Care Teams Manager Oracle Retail Relationship Specialty Start Date End Date Familia Stanley MD [address] [facility] [place] [address] PCP - General 06/01/19 documented as of this encounter
--- OUTSIDE RECORDS SUMMARY | 2024-12-09 09:23 | XMS_ITS | Clinical Summary ---
Author Organization [facility] Address [address] [place] [address] Phone Care Team Providers Care Regulatory Affairs Consultant Name Role Phone Familia Stanley MD Primary Care Provider [phone] Allergies No known active allergies Medications ALPRAZolam (Xanax) 0.25 mg tablet Take 1 tablet (0.25 mg) by mouth 3 times a day as needed. Active amitriptyline (Elavil) 75 mg tablet Take 1 tablet (75 mg) by mouth once daily at bedtime. Active simvastatin (Zocor) 20 mg tablet Take 1 tablet (20 mg) by mouth once daily at bedtime. Active lisinopril 40 mg tablet Take 1 tablet (40 mg) by mouth once daily. Active magnesium oxide (Mag-Ox) 400 mg (241.3 mg magnesium) tabletIndications :Paroxysmal atrial tachycardia,Mariela ture ventricular contractions TAKE 2 TABLETS BY MOUTH EVERY DAY 180 tablet 3 4 Active spironolactone (Aldactone) 25 mg tabletIndications :Primary hypertension Take 1 tablet (25 mg) by mouth once daily. 90 tablet 3 5 05/28/19 26 Active metoprolol succinate XL (Toprol-XL) 50 mg 24 hr tabletIndications :Essential (primary) hypertension,Palp itation Take 1 tablet (50 mg) by mouth 2 times a day. 180 tablet 3 5 05/28/19 26 Active Active Problems Problem Noted Date Diagnosed Date BMI 32.0-32.9,adult 03/19/2024 Hyperlipidemia 01/22/2023 Hypertension 01/22/2023 Palpitation 01/22/2023 Paroxysmal atrial tachycardia 01/22/2023 Premature ventricular contractions 01/22/2023 Resolved Problems Problem Noted Date Diagnosed Date Resolved Date Class 1 obesity 01/22/2023 03/19/2024 Immunizations Immunization Administration Dates Next Due Flu vaccine (IIV4), preserva tive free *Check age/dose* 04/08/2018 Flu vaccine, quadrivalent, h igh-dose, preservative free, age 65y+ (FLUZONE) 03/26/2022 Flu vaccine, trivalent, pres ervative free, HIGH-DOSE, age 65y+ (Fluzone) 03/09/2019 Flu vaccine, trivalent, pres ervative free, age 6 months and greater (Fluarix/Fluzone/Flulaval) 04/04/2015 Influenza, Seasonal, Quadriv alent, Adjuvanted 03/19/2021 Influenza, Unspecified 03/26/2019 Influenza, injectable, quadrivalent 04/01/2014 Influenza, seasonal, injectable 03/19/2013 Pfizer COVID-19 vaccine, biv alent, age 12 years and older (30 mcg/0.3 mL) 02/25/2022 Pneumococcal conjugate vacci ne, 13-valent (PREVNAR 13) 05/26/2018 Pneumococcal polysaccharide vaccine, 23-valent, age 2 years and older (PNEUMOVAX 23) 04/21/2019,08/13/2018,05/26/2017 Zoster vaccine, recombinant, adult (SHINGRIX) 08/04/2020,04/11/2020 Family History Medical History Relation Name Comments CVA Father Heart failure Father Hypertension Father heart problem Father Hypertension Mother Relation Name Status Comments Father Mother Social History Tobacco Use Types Packs/Day Years Used Date Smoking Tobacco: Never Smokeless Tobacco: Never Tobacco Cessation:Counseling Given: Not Answered Alcohol Use Standard Drinks/Week Comments Not Currently 0 (1 standard drink = 0.6 oz pur e alcohol) PHQ-2 Answer Date Recorded Patient Health Questionnaire-2 Score 0 02/28/2023 Comments Unknown Sex and Gender Information Value Date Recorded Sex Assigned at Not on file Legal Sex Female 3:19 AM EST Gender Identity Not on file Sexual Orientation Not on file Last Filed Vital Signs Vital Sign Reading Time Taken Comments Blood Pressure 120/77 03/19/2024 11:02 AM EDT Pulse 60 03/19/2024 10:26 AM EDT Temperature - - Respiratory Rate - - Oxygen Saturation - - Inhaled Oxygen Concentration - - Weight 88 kg (194 lb) 03/19/2024 10:26 AM EDT Height 165.1 cm (5' 5 ) 03/19/2024 10:26 AM EDT Body Mass Index 32.28 03/19/2024 10:26 AM EDT Plan of Treatment Upcoming Encounters Date Type Department Care Team (Late st Contact Info) Description 03/04/2025 10:30 AM EDT Office Visit [facility] [address] [facility] [address] [place] [phone] Robi Tanner MD [address] [facility] [address] [place] [address] Health Maintenance Due Date Last Done Comments CT Colonography 1950 Colonoscopy 1950 FIT 1950 Lipid Panel 1950 Sigmoidoscopy 1950 Diabetes Screening 02/27/1968 Hepatitis C Screening 02/27/1968 DTaP/Tdap/Td Vaccines (1 - Tdap) 02/27/1972 Mammogram 1990 COVID-19 Vaccine ( season) 2024 02/25/2022, 05/11/2021, 07/19/2020, Additional history exists Colorectal Cancer Screening 08/13/2024 FIT-DNA (Cologuard) 08/13/2024 08/13/2021 Influenza Vaccine (#1) 2025 , 03/26/2022, 03/19/2021, Additional history exists RSV High Risk: (Elderly (60+) or Population) (1 - 1-dose 75+ series) 2025 Medicare Annual Wellness Visit (AWV) 07/30/2025 07/29/2024, 11/02/2018, 08/27/2016 Bone Density Scan 10/09/2025 10/10/2023, , 08/25/2018, Additional history exists Pneumococcal Vaccine Completed 04/21/2019, 08/13/2018, 05/26/2018, Additional history exists Zoster Vaccines Completed 08/04/2020, 04/11/2020 Welcome to Medicare Visit Discontinued 2024, 11/02/2018, 08/27/2016 HIB Vaccines Aged Out No longer eligi ble based on patient's age to complete this topic HPV Vaccines Aged Out No longer eligi ble based on patient's age to complete this topic Hepatitis A Vaccines Aged Out No long er eligible based on patient's age to complete this topic Hepatitis B Vaccines Aged Out No long er eligible based on patient's age to complete this topic IPV Vaccines Aged Out No longer eligi ble based on patient's age to complete this topic Meningococcal Vaccine Aged Out No ute gualberto eligible based on patient's age to complete this topic Rotavirus Vaccines Aged Out No longer eligible based on patient's age to complete this topic Insurance MEDICARE PART A AND B [facility] Care Teams Regulatory Affairs Consultant Relationship Specialty Start Date End Date Familia Stanley MD [address] [place] [address] PCP - General 06/01/19
--- OUTSIDE RECORDS SUMMARY | 2024-12-09 09:23 | XMS_ITS | Clinical Summary ---
Author Organization [facility] Address [address] [place] [address] Care Team Providers Care Special Education Resource Room Teacher Name Role Phone Familia Stanley MD Primary Care Provider + Camilo Lord MD Unavailable [phone] Allergies No known active allergies Medications ALPRAZolam (XANAX) 0.25 mg tablet Take 0.25 mg by mouth as needed. 11/07/2014 Active temazepam (RESTORIL) 15 mg cap 15 mg at bedtime as needed. 09/26/2014 Active aspirin, enteric coated (ASPIRIN, ENTERIC COATED) 81 mg EC tablet Take 81 mg by mouth once daily. Active MULTIVIT &MINERALS/LEIDA US FUM (MULTI VITAMIN ORAL) Take by mouth once daily. Active VITAMIN E ORAL Take by mouth once daily. Active GLUCOSAMINE HCL/CHONDR TREVINO A NA (OSTEO BI-FLEX ORAL) Take by mouth once daily. Active CALCIUM CARBONATE/VITAM IN D3 (VITAMIN D-3 ORAL) Take by mouth once daily. Active CALCIUM ORAL Take by mouth once daily. Active ASCORBIC ACID (VITAMIN C ORAL) Take by mouth as needed. Active AMITRIPTYLINE HCL (ELAVIL ORAL) Take 75 mg by mouth once daily. Active carvedilol (COREG) 12.5 mg tablet TAKE 1 TABLET TWICE DAILY WITH MEALS 180 tablet 3 02/16/2018 Active lisinopril (ZESTRIL, PRINIVIL) 5 mg tablet TAKE 1 TABLET ONCE DAILY 90 tablet 3 2018 Active Active Problems Problem Noted Date Diagnosed Date PVC (premature ventricular contraction) 10/05/20 17 Hypertension with goal blood pressure less than 140/90 10/10/2015 Pure hypercholesterolemia Chest pain Premature beats, unspecified Essential hypertension, benign Family History Medical History Relation Comments Heart Father Hypertension Father Heart Mother hypotension [Other] Mother Relation Status Comments Father Mother Social History Tobacco Use Types Packs/Day Years Used Date Smoking Tobacco: Never Smokeless Tobacco: Never Alcohol Use Standard Drinks/Week Comments Yes 0 (1 standard drink = 0.6 oz pur e alcohol) occasionally Area Deprivation Index Answer Date Johnie rded National Score (1-100), lower number is lower ri sk Not on file 05/03/2020 State Score (1-10), lower number is lower risk N ot on file 05/03/2020 Data from: https://www.neighborhoodatlas.medicine.[facility].edu/. Last address used for calculation Not on file 05/03/2020 Comments Unknown Sex and Gender Information Value Date Recorded Sex Assigned at Not on file Legal Sex Female 2:25 PM EST Gender Identity Not on file Sexual Orientation Not on file Last Filed Vital Signs Vital Sign Reading Time Taken Comments Blood Pressure 150/81 02/27/2018 10:35 AM EDT Pulse 64 02/27/2018 10:35 AM EDT Temperature 36.2 C (97.1 F) 10/10/2015 11:01 AM EDT Respiratory Rate 18 02/27/2018 10:35 AM EDT Oxygen Saturation 98% 02/27/2018 10:35 AM EDT Inhaled Oxygen Concentration - - Weight 80.7 kg (178 lb) 02/27/2018 10:35 AM EDT Height 165.1 cm (5' 5 ) 02/27/2018 10:35 AM EDT Body Mass Index 29.62 02/27/2018 10:35 AM EDT Plan of Treatment Health Maintenance Due Date Last Done Comments Anxiety Screening 02/27/1968 Depression Screening 02/27/1968 Hepatitis C Screening 02/27/1968 DTaP,Tdap,Td Vaccine (1 - Tdap) [address] Colonography 1995 Cologuard (FIT-DNA) 1995 Colonoscopy 1995 Colorectal Cancer Screening 1995 Diabetes Screening 1995 Fecal Occult Blood 1995 Lipid Screening 1995 Sigmoidoscopy 1995 Pneumococcal Vaccine: 50+ (1 of 1 - PCV) 02/27/2000 Shingrix Vaccine (1 of 2) 02/27/2000 Bone Density Screening 2015 Covid-19 Vaccine (1 - 2023- season) 2024 Advance Directive Discussion 05/26/2024 Influenza Vaccine (#1) 2025 RSV Vaccine (1 - 1-dose 75+ series) 2025 Insurance MEDICARE [place] [id number] MEDICARE SUPPLEMENT Care Teams Special Education Resource Room Teacher Relationship Specialty Start Date End Date Familia Stanley MD PCP - General Family Medicine 05/03/13 Camilo Lord MD [address] [address] Primary Staff Physician Cardiology 08/11/18
--- OUTSIDE RECORDS SUMMARY | 2024-12-09 09:23 | XMS_ITS | Encounter Summary ---
Author Organization [facility] Address [address] [place] [address] Phone Care Team Providers Care Hog Ribber Name Role Phone Familia Stanley MD Primary Care Provider [phone] Encounter Details Date Type Department Care Team (Late st Contact Info) Description 03/26/2019 Orders Only [facility] [address] [place] [address] Conversion, Onbase Social History Tobacco Use Types [...] Description 03/04/2025 10:30 AM EDT Office Visit [place] [address] [facility] [address] [place] [phone] Robi Tanner MD [address] [facility] [address] [place] [address] Scheduled Orders Name Type Priority Associated Diagnoses Orde r Schedule OUTSIDE LAB SCAN Lab Ordered: 03/26/2019 documented as of this encounter Visit Diagnoses Not on filedocumented in this encounter Care Teams Hog Ribber Relationship Specialty Start Date End Date Familia Stanley MD [address] [place] [facility] [place] [address] PCP - General 06/01/19 documented as of this encounter
--- OUTSIDE RECORDS SUMMARY | 2024-12-09 09:23 | XMS_ITS | Encounter Summary ---
Author Organization [facility] Address [address] [place] [address] Phone Care Team Providers Care Color Stripper Name Role Phone Familia Stanley MD Primary Care Provider [phone] Encounter Details Date Type Department Care Team (Late st Contact Info) Description 04/16/2019 Orders Only [facility] [address] [place] [address] Conversion, Onbase Social History Tobacco Use Types [...] Description 03/04/2025 10:30 AM EDT Office Visit [place] [address] [facility] [address] [place] [address] Robi Tanner MD [address] [facility] [address] [place] [address] Scheduled Orders Name Type Priority Associated Diagnoses Orde r Schedule OUTSIDE LAB SCAN Lab Ordered: 04/16/2019 documented as of this encounter Visit Diagnoses Not on filedocumented in this encounter Care Teams Color Stripper Relationship Specialty Start Date End Date Familia Stanley MD [address] [place] [address] PCP - General 06/01/19 documented as of this encounter
--- OUTSIDE RECORDS SUMMARY | 2024-12-09 09:23 | XMS_ITS | Encounter Summary ---
Author Organization [facility] Address [address] [place] [address] Phone Care Team Providers Care Foam Rubber Mixer Name Role Phone Familia Stanley MD Primary Care Provider [phone] Encounter Details Date Type Department Care Team (Late st Contact Info) Description 02/18/2020 Orders Only [facility] [address] [place] [address] Conversion, Onbase Social History Tobacco Use Types [...] Description 03/04/2025 10:30 AM EDT Office Visit [place] [id number] [phone] Robi Tanner MD [address]03 [facility] [address] [place] [address] Scheduled Orders Name Type Priority Associated Diagnoses Orde r Schedule OUTSIDE LAB SCAN Lab Ordered: 02/18/2020 OUTSIDE LAB SCAN Lab Ordered: 02/18/2020 OUTSIDE LAB SCAN Lab Ordered: 02/18/2020 OUTSIDE LAB SCAN Lab Ordered: 02/18/2020 OUTSIDE LAB SCAN Lab Ordered: 02/18/2020 OUTSIDE LAB SCAN Lab Ordered: 02/18/2020 documented as of this encounter Visit Diagnoses Not on filedocumented in this encounter Care Teams Foam Rubber Mixer Relationship Specialty Start Date End Date Familia Stanley MD [address] [place] [address] PCP - General 06/01/19 documented as of this encounter
--- OUTSIDE RECORDS SUMMARY | 2024-12-09 09:23 | XMS_ITS | Encounter Summary ---
Author Organization [facility] Address [address] [place] [address] Phone Care Team Providers Care Self Sealing Fuel Tank Builder Name Role Phone Familia Stanley MD Primary Care Provider [phone] Encounter Details Date Type Department Care Team (Late st Contact Info) Description 02/14/2021 Orders Only [facility] [address] [place] [address] Conversion, Onbase Social History Tobacco Use Types [...] Description 03/04/2025 10:30 AM EDT Office Visit [place] 131223 [facility] [address] [place] [address] Robi Tanner MD 703 [facility] [address] [place] [address] Scheduled Orders Name Type Priority Associated Diagnoses Orde r Schedule OUTSIDE LAB SCAN Lab Ordered: 02/14/2021 documented as of this encounter Visit Diagnoses Not on filedocumented in this encounter Care Teams Self Sealing Fuel Tank Builder Relationship Specialty Start Date End Date Familia Stanley MD [address] [facility] [place] [address] PCP - General 06/01/19 documented as of this encounter
--- OUTSIDE RECORDS SUMMARY | 2024-12-09 09:23 | XMS_ITS | Clinical Summary ---
Author Organization [facility] Address [address] [place] [address] Care Team Providers Care Vp Corporate Partnerships Name Role Phone Unavailable Primary Care Provider Unavailabl e Social History Tobacco Use Types Packs/Day Years Used Date Smoking Tobacco: Never Assessed Comments Unknown Sex and Gender Information Value Date Recorded Sex Assigned at Not on file Legal Sex Female 10:20 PM EDT Gender Identity Not on file Sexual Orientation Not on file Last Filed Vital Signs Vital Sign Reading Time Taken Comments Blood Pressure 160/80 03/16/2019 1:46 PM EDT Pulse - - Temperature - - Respiratory Rate - - Oxygen Saturation 98% 03/16/2019 1:48 PM EDT Inhaled Oxygen Concentration - - Weight 81.6 kg (180 lb) 03/16/2019 1:44 PM EDT Height 165.1 cm (5' 5 ) 03/16/2019 1:42 PM EDT Body Mass Index 29.95 03/16/2019 1:42 PM EDT Plan of Treatment Not on file
--- OUTSIDE RECORDS SUMMARY | 2024-12-09 09:23 | XMS_ITS | Clinical Summary ---
Author Organization [facility] Address [address] [place] [address], [address] [place] [address] Care Team Providers Care Tobacco Buyer Name Role Phone Unavailable Primary Care Provider Unavailabl e Social History Tobacco Use Types Packs/Day Years Used Date Smoking Tobacco: Never Assessed Comments Unknown Sex and Gender Information Value Date Recorded Sex Assigned at Not on file Legal Sex Female 2:10 PM EST Gender Identity Not on file Sexual Orientation Not on file Plan of Treatment Not on file
--- OUTSIDE RECORDS SUMMARY | 2024-12-09 09:23 | XMS_ITS | Clinical Summary ---
Author Organization [employer] Address [id number] [address] [place] [address] Care Team Providers Care Property And Equipment Clerk Name Role Phone Familia Stanley MD Primary Care Provider [phone] No known active allergies Medications alendronate (FOSAMAX) 70 mg tablet Take 70 mg by mouth once a week. Active ALPRAZolam (XANAX) 0.25 mg tablet Take 0.25 mg by mouth as needed. 11/07/2014 Active amitriptyline (ELAVIL) 75 mg tablet Take 75 mg by mouth daily. Active aspirin 81 mg Take 81 mg by mouth daily. Active lisinopril (PRINIVIL,ZESTR IL) 10 mg tablet Take 10 mg by mouth daily. 11 03/22/2019 Active simvastatin (ZOCOR) 20 mg tablet Take 20 mg by mouth daily. 03/12/2019 Active propranolol (INDERAL) 20 mg tablet Take 0.5 tablets (10 mg total) by mouth 3 (three) times a day. 120 tablet 11 04/16/2019 Active Active Problems Problem Noted Date Diagnosed Date Supraventricular tachycardia 04/05/2019 Palpitations Lightheadedness Dyspnea on exertion Hypertension Anxiety Altered mental status Social History Tobacco Use Types Packs/Day Years Used Date Smoking Tobacco: Never Smokeless Tobacco: Never Alcohol Use Standard Drinks/Week Comments Yes 0 (1 standard drink = 0.6 oz pur e alcohol) OCCASSIONALLY Childcare Answer Date Recorded Childcare Unknown 03/24/2019 Employment Answer Date Recorded Employment Unknown 03/24/2019 Purpose - Life Answer Date Recorded Purpose and direction in life Unknown Comments Unknown Sex and Gender Information Value Date Recorded Sex Assigned at Not on file Legal Sex Female 1:37 PM EDT Gender Identity Not on file Sexual Orientation Not on file Last Filed Vital Signs Vital Sign Reading Time Taken Comments Blood Pressure 132/70 04/05/2019 9:35 AM EST Pulse 62 04/05/2019 9:35 AM EST Temperature - - Respiratory Rate - - Oxygen Saturation - - Inhaled Oxygen Concentration - - Weight 82.6 kg (182 lb) 04/05/2019 9:35 AM EST Height 165.1 cm (5' 5 ) 04/05/2019 9:35 AM EST Body Mass Index 30.29 04/05/2019 9:35 AM EST Plan of Treatment Health Maintenance Due Date Last Done Comments Depression Screening 1962 Tobacco Screening 1962 Adult BMI Screening 02/27/1968 DTaP,Tdap and Td Vaccines (1 - Tdap) 1969 Zoster (Shingles) Vaccine (1 of 2) 02/27/2000 Fall Risk Screening 2015 Influenza Vaccine 01/24/2025 Medical Devices Not on file Insurance [address] [place] [address] MEDICARE [facility] Member Subscriber Plan / Payer (Ef fective 2016-Present) Name:Kay Newton Relation to Subscriber:Self Name:Kay Newton Payer ID:[id number] (NAIC) Group ID:[id number] Type:Not on file Address: [address] [place] [id number] Care Teams Property And Equipment Clerk Relationship Specialty Start Date End Date Familia Stanley MD PCP - General Family Medicine 03/24/19
--- OUTSIDE RECORDS SUMMARY | 2024-12-09 09:23 | XMS_ITS | Encounter Summary ---
Author Organization [facility] Address [address] [place] [address] Phone Care Team Providers Care Frame Changer Name Role Phone Familia Stanley MD Primary Care Provider [phone] Encounter Details Date Type Department Care Team (Late st Contact Info) Description 08/25/[address] [facility] [address] [place] [address] Conversion, Onbase Social History Tobacco Use Types [...] Description 03/04/2025 10:30 AM EDT Office Visit [place] 909203 [facility] [address] [place] [phone] Robi Tanner MD 703 [facility] [address] [place] [address] Scheduled Orders Name Type Priority Associated Diagnoses Orde r Schedule OUTSIDE LAB SCAN Lab Ordered: 08/25/2018 documented as of this encounter Visit Diagnoses Not on filedocumented in this encounter Care Teams Frame Changer Relationship Specialty Start Date End Date Familia Stanley MD [address] [facility] [place] [address] PCP - General 06/01/19 documented as of this encounter
--- NOTE | 2024-12-09 09:48 | PM.CN ---
Consult Note: HPI Data of Consult Patient: known to practice within the last 3 years Consult date: 12/09/24 Requesting Physician: Flori Ott NP Primary Care Provider: Familia Stanley MD Consult Narrative Reason for consult: injection f/u Narrative: Kay evans pleasant 74 year old female presents for evaluation and management of chronic right knee pain. Today pain 0/10, increasing to 5/10 with ambulation. Patient noticing increase in pain with stairs, activity, weather changes, improved with sitting. prior right knee durolane injection provided >50% improvement greater than 6 months, pt would like to repeat. denies falls/injury. pt has failed to benefit from > 6 weeks of HEP, heat, ice, tylenol, voltaren gel, nsaids. not interested in surgical intervention at this time. cc:: CC: Flori Ott NP [facility] Medical History Irregular heart beat �I49.9 - Cardiac arrhythmia, unspecified (ICD-10) Hypercholesterolemia �E78.00 - Pure hypercholesterolemia, unspecified (ICD-10) Osteoarthritis �M19.90 - Unspecified osteoarthritis, unspecified site (ICD-10) Hypertension �I10 - Essential (primary) hypertension (ICD-10) Surgical History H/O vein stripping �Z98.890 - Other specified postprocedural states (ICD-10) H/O: hysterectomy �Z90.710 - Acquired absence of both cervix and uterus (ICD-10) Hx of tonsillectomy �Z90.89 - Acquired absence of other organs (ICD-10) Hx of cataract surgery �Z98.49 - Cataract extraction status, unspecified eye (ICD-10) Hx of appendectomy �Z90.49 - Acquired absence of other specified parts of digestive tract (ICD-10) Meds Home Medications and Allergies Home Medications �Medication �Instructions �Recorded �Confirmed �Type amitriptyline 75 mg tablet 75 mg PO DAILY 10/31/22 11/11/23 History calcium carbonate (Calcium 600) 600 mg PO BID 10/31/22 11/11/23 History metoprolol tartrate 50 mg tablet 50 mg PO BID 10/31/22 11/11/23 History multivitamin 1 tab PO DAILY 10/31/22 11/11/23 History simvastatin 20 mg tablet 20 mg PO DAILY 10/31/22 11/11/23 History spironolactone 25 mg tablet 25 mg PO DAILY 10/31/22 11/11/23 History lisinopril 5 mg tablet 5 mg PO DAILY 06/17/23 11/11/23 History Allergies Allergy/AdvReac Type Severity Reaction Status Date / Time No Known Drug Allergies Allergy Verified 06/17/23 08:41 Exam Constitutional Documenting provider has reviewed patient's vital signs: yes Common normals: no apparent distress, oriented x3, healthy appearing, alert and well nourished General appearance: cooperative HENMT Common normals: normocephalic, hearing grossly normal bilaterally and moist oral mucous membranes Head and scalp: normocephalic Eye Common normals: PERRL Pupil: PERRL Neck & C-Spine Common normals: full ROM General: normal visual inspection Chest Common normals: inspection of chest normal Respiratory Common normals: normal respiratory effort, no retractions and no use of accessory muscles Extremity Right lower extremity: knee joint (moderate crepitus noted ) Right knee: inspection (enlarged proximal diameter, mild edema ), palpation (tenderness to touch), ROM (increased pain with medial/lateral stress testing) and other (no instability noted) Neuro Common normals: oriented x3 Sensorium/orientation: alert Psych Common normals: mental status grossly normal, thought process normal, cooperative, affect normal, speech normal and activity/motor behavior normal Speech: normal speech Thought process: normal thought process Results Additional Findings Additional findings: If on a controlled substance or opioids, I have checked an [place]AR[place] report on this patient and there are no aberrancies noted in the prescribing history.��If on a controlled substance or opioid a drug screen was completed and reviewed within the last year, and if there has not been a drug screen completed we ordered one today to monitor higher risk, state monitored pain medication use. As part of providing excellent, safe, comprehensive care, the following was completed at our patient's visit: 1. A medication reconciliation and review to ensure accurate knowledge of current/active medications, including asking our patients to inform us about any [id number] medications or herbal remedies/nutritional supplements/alternative remedies. 2. A review to specifically ensure our patients have had annual screening for screening for depression, screening for tobacco use, and screening for unhealthy alcohol use. For concerning screenings had a discussion with the patient, provided patient education, and recommended follow-up with primary care provider when appropriate. If patient noted with a risk of falling, they received education on strength, gait, and balance training to prevent future risk of falling. Portions of this note may have been carried over from the previous visit and updated as appropriate. Please note this office utilizes paper charting in addition to the electronic medical record. A list of current medications, vitals, and PMH is available there as the clinical staff outside of myself do not have access to [facility] charting during the clinic day operations. As part of providing quality comprehensive care the current medications, vitals, and PMH were reviewed in the paper chart. Assessment and Plan Assessment and Plan (1) Knee osteoarthritis: (2) Right knee pain: Plan repeat right knee durolane injection for pain/oa continue topical voltaren gel prn continue current medications f/u after injection
== END 2024-12-09 09:21 | disposition home or self-care (01) ==
LOC: PM 09:21
PROVIDERS: PCP Family Medicine; Visit Provider Nurse Practitioner
DX: M17.11 Unilateral primary osteoarthritis, right knee (principal); M25.561 Pain in right knee
CPT/HCPCS: G0463

== ENCOUNTER 2024-12-27 14:36 | Outpatient (OUT) | payer MEDICARE, OTHER, SELFPAY ==
--- NOTE | 2024-12-27 15:47 | PM.CN ---
Consult Note: HPI Data of Consult Patient: known to practice within the last 3 years Consult date: 12/27/24 Requesting Physician: Manolo Castrejon MD Primary Care Provider: Familia Stanley MD Consult Narrative Reason for consult: right knee pain Narrative: 74yof who presents for in office injection. continues to have right knee pain. cc:: CC: Manolo Castrejon MD Review of Systems ROS Status of ROS 10 or more systems reviewed and unremarkable except as noted in history and below PFSH PFSH Medical History Irregular heart beat ?I49.9 - Cardiac arrhythmia, unspecified (ICD-10) Hypercholesterolemia ?E78.00 - Pure hypercholesterolemia, unspecified (ICD-10) Osteoarthritis ?M19.90 - Unspecified osteoarthritis, unspecified site (ICD-10) Hypertension ?I10 - Essential (primary) hypertension (ICD-10) Surgical History H/O vein stripping ?Z98.890 - Other specified postprocedural states (ICD-10) H/O: hysterectomy ?Z90.710 - Acquired absence of both cervix and uterus (ICD-10) Hx of tonsillectomy ?Z90.89 - Acquired absence of other organs (ICD-10) Hx of cataract surgery ?Z98.49 - Cataract extraction status, unspecified eye (ICD-10) Hx of appendectomy ?Z90.49 - Acquired absence of other specified parts of digestive tract (ICD-10) Meds Home Medications and Allergies Home Medications ?Medication ?Instructions ?Recorded ?Confirmed ?Type amitriptyline 75 mg tablet 75 mg PO DAILY 10/31/22 11/11/23 History calcium carbonate (Calcium 600) 600 mg PO BID 10/31/22 11/11/23 History metoprolol tartrate 50 mg tablet 50 mg PO BID 10/31/22 11/11/23 History multivitamin 1 tab PO DAILY 10/31/22 11/11/23 History simvastatin 20 mg tablet 20 mg PO DAILY 10/31/22 11/11/23 History spironolactone 25 mg tablet 25 mg PO DAILY 10/31/22 11/11/23 History lisinopril 5 mg tablet 5 mg PO DAILY 06/17/23 11/11/23 History Allergies Allergy/AdvReac Type Severity Reaction Status Date / Time No Known Drug Allergies Allergy Verified 06/17/23 08:41 Exam Narrative Exam Narrative: Psych-alert and oriented x 3.? Attentive and appropriate, constitutionally normal, displays normal mood and affect per situation.? There are no obvious deficits in memory, reasoning, or intellect. Extremities-lower extremities are warm with minimal edema and palpable pulses. Knee-examination of the right knee reveals tenderness to palpation over the superior, inferior, lateral, and medial aspect of the knee.? Some swelling is noted without erythema. Pain is elicited with flexion and extension of the knee both actively and passively.? Some grinding is noted with these motions.? There is no notable ligamental laxity or instability.? Coordination remains intact.? Gait remains antalgic. Assessment and Plan Assessment and Plan (1) Right knee pain: Qualifiers: Chronicity: chronic Qualified Code(s): M25.561 - Pain in right knee; G89.29 - Other chronic pain Plan 74yof who presents for in office injection. continues to have right knee pain, so will proceed with injection. procedure: right knee injection medication: durolane I explained the details of the procedure to the patient including the risks, benefits and alternatives. We had an informed discussion and the patient verbalized understanding and signed the consent form. All questions were answered appropriately.? A time out was performed.? After obtaining a comfortable seated position, the right knee was prepped with alcohol x3. A syringe containing the above medication was attached to a 25 gauge, 1.5 inch needle under strict aseptic technique. The lateral tibial plateau was palpated.? The needle was then advanced through the subcutaneous tissue in a medial and superior direction towards the joint space.? The contents of the syringe were gently injected without any resistance. The needle was removed and pressure was applied to the injection site to decrease the incidence of ecchymosis and hematoma formation.? A sterile bandage was applied.
== END 2024-12-27 14:37 | disposition home or self-care (01) ==
LOC: PM 14:36
PROVIDERS: PCP Family Medicine; Visit Provider Anesthesiology
DX: M25.561 Pain in right knee (principal); G89.29 Other chronic pain
CPT/HCPCS: 20610; J7318

== ENCOUNTER 2025-02-01 13:45 | Outpatient (OUT) | payer MEDICARE, OTHER, SELFPAY ==
--- OUTSIDE RECORDS SUMMARY | 2025-02-01 13:48 | XMS_ITS | Clinical Summary ---
Author Organization [facility] Address [address] [place] [address] Care Team Providers Care Boat Tender Name Role Phone Unavailable Primary Care Provider [...]
--- OUTSIDE RECORDS SUMMARY | 2025-02-01 13:48 | XMS_ITS | Clinical Summary ---
Author Organization [facility] Address [address] [place] [address] Care Team Providers Care Marketing Education Teacher Name Role Phone Familia Stanley MD Primary Care Provider [phone] Camilo Lord MD Unavailable [phone] Allergies No known active allergies Medications ALPRAZolam [...] N ot on file 05/03/2020 Data from: https://www.[email or web address].medicine.[email or web address]/. Last address used for calculation Not [...] of 2) 02/27/2000 Bone Density Screening 2015 Advance Directive Discussion 05/26/2024 Influenza Vaccine (#1) 2025 RSV Vaccine (1 - 1-dose 75+ series) [address] MEDICARE SUPPLEMENT Care Teams Marketing Education Teacher Relationship Specialty Start Date End Date Familia Stanley MD PCP - General Family Medicine 05/03/13 Camilo Lord MD [address] [facility] [address] [place] [address] Primary Staff Physician Cardiology 08/11/18
--- OUTSIDE RECORDS SUMMARY | 2025-02-01 13:48 | XMS_ITS | Encounter Summary ---
Author Organization [facility] Address [address] [place] [address] Phone Care Team Providers Care Cabinet Assembler Name Role Phone Familia Stanley MD Primary Care Provider [phone] Encounter Details Date Type Department Care Team (Late st Contact Info) Description 02/14/2021 Orders Only [facility] [address] [place] [address] Conversion, Onbase Social History Tobacco Use Types [...] Description 03/04/2025 10:30 AM EDT Office Visit [place] 8[address] [facility] [address] [place] [address] Robi Tanner MD 703 [facility] [address] [place] [address] Scheduled Orders Name Type Priority Associated Diagnoses Orde r Schedule OUTSIDE LAB SCAN Lab Ordered: 02/14/2021 documented as of this encounter Visit Diagnoses Not on filedocumented in this encounter Care Teams Cabinet Assembler Relationship Specialty Start Date End Date Familia Stanley MD [address] [facility] [place] [address] PCP - General 06/01/19 documented as of this encounter
--- OUTSIDE RECORDS SUMMARY | 2025-02-01 13:48 | XMS_ITS | Encounter Summary ---
Author Organization [facility] Address [address] [place] [address] Phone Care Team Providers Care Wood Grainer Name Role Phone Familia Stanley MD Primary Care Provider [phone] Encounter Details Date Type Department Care Team (Late st Contact Info) Description 04/16/2019 Orders Only [facility] [address] [place] [address] Conversion, Onbase Social History Tobacco Use Types [...] Description 03/04/2025 10:30 AM EDT Office Visit [place] [address] [facility] [address] [place] [address] Robi Tanner MD 703 [facility] [address] [place], [place] [id number] Scheduled Orders Name Type Priority Associated Diagnoses Orde r Schedule OUTSIDE LAB SCAN Lab Ordered: 04/16/2019 documented as of this encounter Visit Diagnoses Not on filedocumented in this encounter Care Teams Wood Grainer Relationship Specialty Start Date End Date Familia Stanley MD [address] [facility] [place] [address] PCP - General 06/01/19 documented as of this encounter
--- OUTSIDE RECORDS SUMMARY | 2025-02-01 13:48 | XMS_ITS | Encounter Summary ---
Author Organization [facility] Address [address] [place] [address] Phone Care Team Providers Care Commis Chef Name Role Phone Familia Stanley MD Primary Care Provider [phone] Encounter Details Date Type Department Care Team (Late st Contact Info) Description 02/18/2020 Orders Only [facility] [address] [place] [address] Conversion, Onbase Social History Tobacco Use Types [...] Description 03/04/2025 10:30 AM EDT Office Visit [place] [address] [phone] Robi Tanner MD 703 [facility] [address] [place] [address] Scheduled Orders Name Type Priority Associated Diagnoses Orde r Schedule OUTSIDE LAB SCAN Lab Ordered: 02/18/2020 OUTSIDE LAB SCAN Lab Ordered: 02/18/2020 OUTSIDE LAB SCAN Lab Ordered: 02/18/2020 OUTSIDE LAB SCAN Lab Ordered: 02/18/2020 OUTSIDE LAB SCAN Lab Ordered: 02/18/2020 OUTSIDE LAB SCAN Lab Ordered: 02/18/2020 documented as of this encounter Visit Diagnoses Not on filedocumented in this encounter Care Teams Commis Chef Relationship Specialty Start Date End Date Familia Stanley MD [address] [place] [address] PCP - General 06/01/19 documented as of this encounter
--- OUTSIDE RECORDS SUMMARY | 2025-02-01 13:48 | XMS_ITS | Encounter Summary ---
Author Organization [facility] Address [address] [place] [address] Phone Care Team Providers Care Underwriter Solicitation Director Name Role Phone Familia Stanley MD Primary Care Provider [phone] Encounter Details Date Type Department Care Team (Late st Contact Info) Description 10/03/2018 Orders Only [facility] [address] [place] [address] Conversion, Onbase Social History Tobacco Use Types [...] Description 03/04/2025 10:30 AM EDT Office Visit [place] [id number] [facility] [address] [place] [phone] Robi Tanner MD 703 [facility] [address] [place], [place] [id number] Scheduled Orders Name Type Priority Associated Diagnoses Orde r Schedule OUTSIDE LAB SCAN Lab Ordered: 10/03/2018 documented as of this encounter Visit Diagnoses Not on filedocumented in this encounter Care Teams Underwriter Solicitation Director Relationship Specialty Start Date End Date Familia Stanley MD [address] [facility] [place] [address] PCP - General 06/01/19 documented as of this encounter
--- OUTSIDE RECORDS SUMMARY | 2025-02-01 13:48 | XMS_ITS | Encounter Summary ---
Author Organization [facility] Address [address] [place] [address] Phone Care Team Providers Care Chinese Language Professor Name Role Phone Familia Stanley MD Primary Care Provider [phone] Encounter Details Date Type Department Care Team (Late st Contact Info) Description 08/25/2018 Orders Only [facility] [address] [place] [address] Conversion, Onbase Social History Tobacco Use Types [...] 10:30 AM EDT Office Visit [place] [id number] [facility] [address] [place] [phone] Robi Tanner MD [address] [facility] [address] [place], [place] [id number] Scheduled Orders Name Type Priority Associated Diagnoses Orde r Schedule OUTSIDE LAB SCAN Lab Ordered: 08/25/2018 documented as of this encounter Visit Diagnoses Not on filedocumented in this encounter Care Teams Chinese Language Professor Relationship Specialty Start Date End Date Familia Stanley MD [address] [facility] [place] [address] PCP - General 06/01/19 documented as of this encounter
--- OUTSIDE RECORDS SUMMARY | 2025-02-01 13:48 | XMS_ITS | Clinical Summary ---
Author Organization [facility] Address [address] [place] [address] Phone Care Team Providers Care Staff Services Manager Name Role Phone Familia Stanley MD Primary Care Provider [phone] Allergies No known active allergies Medications ALPRAZolam [...] Description 03/04/2025 10:30 AM EDT Office Visit [facility] [address] [facility] [address] [place] [phone] Robi Tanner MD [address] [facility] [address] [place] [address] Health Maintenance Due Date Last Done Comments CT Colonography 1950 Colonoscopy 1950 FIT 1950 Lipid Panel 1950 Sigmoidoscopy 1950 MMR Vaccines (1 of 1 - Standard series) 1951 Diabetes Screening 02/27/1968 Hepatitis C Screening 02/27/1968 DTaP/Tdap/Td Vaccines (1 - Tdap) 02/27/1972 Mammogram 1990 Colorectal Cancer Screening 08/13/2024 FIT-DNA (Cologuard) 08/13/2024 08/13/2021 COVID-19 Vaccine ( season) 2025 02/25/2022, 05/11/2021, 07/19/2020, Additional history exists Influenza Vaccine (#1) 2025 , 03/26/2022, 03/19/2021, [...] patient's age to complete this topic Insurance [address] [place] [address] MEDICARE PART A AND B [facility] Care Teams Staff Services Manager Relationship Specialty Start Date End Date Familia Stanley MD [address] [place] [address] PCP - General 06/01/19
--- OUTSIDE RECORDS SUMMARY | 2025-02-01 13:48 | XMS_ITS | Encounter Summary ---
Author Organization [facility] Address [address] [place] [address] Phone Care Team Providers Care Rn International Name Role Phone Familia Stanley MD Primary Care Provider [phone] Encounter Details Date Type Department Care Team (Late st Contact Info) Description 03/26/2019 Orders Only [facility] [address] [place] [address] Conversion, Onbase Social History Tobacco Use Types [...] Description 03/04/2025 10:30 AM EDT Office Visit [place] [id number] [facility] [address] [place] [phone] Robi Tanner MD [address] [facility] [address] [place], [place] [id number] Scheduled Orders Name Type Priority Associated Diagnoses Orde r Schedule OUTSIDE LAB SCAN Lab Ordered: 03/26/2019 documented as of this encounter Visit Diagnoses Not on filedocumented in this encounter Care Teams Rn International Relationship Specialty Start Date End Date Familia Stanley MD [address] [facility] [place] [address] PCP - General 06/01/19 documented as of this encounter
--- OUTSIDE RECORDS SUMMARY | 2025-02-01 13:48 | XMS_ITS | Clinical Summary ---
Author Organization [facility] Address [address] [place] [address], [address] [place] [address] Care Team Providers Care Electric Distribution Engineer Name Role Phone Unavailable Primary Care Provider [...]
--- OUTSIDE RECORDS SUMMARY | 2025-02-01 13:48 | XMS_ITS | Clinical Summary ---
Author Organization [employer] [facility] Address [id number] [address] [place] [address] Care Team Providers Care Certified Coatings Inspector Name Role Phone Familia Stanley MD Primary Care Provider [phone] Allergies No known active allergies Medications alendronate [...] Medical Devices Not on file Insurance [address] [place] [address] MEDICARE [facility] Member Subscriber Plan / Payer (Ef fective 2016-Present) Name:Kay Newton Relation to Subscriber:Self Name:Kay Newton Payer ID:[id number] (NAIC) Group ID:[id number] Type:Not on file Address: [address] [place] [id number] Care Teams Certified Coatings Inspector Relationship Specialty Start Date End Date Familia Stanley MD PCP - General Family Medicine 03/24/19
--- OUTSIDE RECORDS SUMMARY | 2025-02-01 14:06 | XMS_ITS | CCD ---
Author Organization [facility] Care Team Providers Care Labview Programmer Name Role Phone CAMILO LANTIGUA Unavailable Unavailab ZENY Guzmán Unavailable Unavailable Zeny Stanley Unavailable Unavailable Unavailable Zeny Stanley Primary Care Physician Ciro, Dr. Abdullahi Referring Unavaila ezio Tanner, Dr. Abdullahi Attending Unavaila Zeny Agarwal Primary Care Unavailable HALALLI .SHANE Attending Unavailable HALKER .SHANE Admitting Unavailable HOY ., DR MOURA Primary Care Unavailable BETHANY ., DR MOURA Primary Care Unavailable REMI [...] LISTED Primary Care Unavaila ezio VALENTINE, DR ANANHT Danielson Consulting Unavailable RAY WEINSTEIN Consulting Unavailable RAY WEINSTEIN Attending Unavailable RAY WEINSTEIN Admitting Unavailable REQUEST, NONE LISTED Primary Care Unavaila ezio ISLAS, DR NEPTALI Eason Consulting Unavailable HIGHLANDER, RAY [...] CRISTIAN Consulting Unavailable PARDEEP, CRISTIAN Attending Unavailable ZIEBER, DR NEPTALI Eason Consulting Unavailable PARDEEP, CRISTIAN Admitting Unavailable REQUEST, DR NONE LISTED Primary Care Unavaila ble PARDEEP, CRISTIAN Consulting Unavailable LAKSHMIPATHY ., NARENDRANATH Admitting Toma vailable LAKSHMIPATHY ., NARENDRANATH Consulting Toma vailable LAKSHMIPATHY ., NARENDRANATH Attending Toma vailable MISC, DR KOLB Primary Care Unavailable Zeny Stanley MD Primary Care Provider [phone] Huma Shannon Admitting Unavailable Huma Shannon Attending Unavailable Huma Shannon Referring Unavailable Federico FRANCIS Attending Unavailable Zeny Stanley Referring Unavailable MD Zeny Stanley Primary Care Provider [phone] MD Zeny Stanley Attending Provider [phone] MD Bradly Tanner Referring Provider Zeny Stanley Admitting Unavailable Zeny Stanley Primary Care Unavailable Zeny Stanley Attending Unavailable Bradly Tanner Referring Unavailable BRADLY TANNER Attending Unavailable BRADLY TANNER Referring Unavailable ZENY STANLEY Primary Care Unavailable Huma Shannon Admitting Unavailable Huma Shannon Attending Unavailable Prideesa J Referring Unavailable Neptali Islas Attending Unavailable Neptali Islas Admitting Unavailable Ananth Valentine V. Primary Care Unavailable Neptali Islas Attending Unavailable Neptali Islas Admitting Unavailable Ananth Valentine V. Primary Care Unavailable Ananth Valentine V. Primary Care Unavailable Neptali Islas Attending Unavailable Rupa Neptali White Admitting Unavailable Friendship, Ananth Danielson. Primary Care Unavailable Friendship, Ananth Danielson. Admitting Unavailable Friendship, Ananth Sebastian Attending Unavailable Friendship, Ananth . Primary Care Unavailable Friendship, Ananth Danielson. Attending Unavailable Friendship, Ananth Danielson. Admitting Unavailable Friendship, Ananth V. Primary Care Unavailable Friendship, Ananth Danielson. Admitting Unavailable Friendship, Ananth Danielson. Attending Unavailable eb, Neptali White Attending Unavailable Friendship, Ananth . Primary Care Unavailable [facility], Neptali White Admitting Unavailable ebrajeev, Neptali White Attending Unavailable eber, Neptali White Admitting Unavailable Friendship, Ananth V. Primary Care Unavailable Friendship, Ananth V. Primary Care Unavailable Friendship, Ananth Danielson. Admitting Unavailable Friendship, Ananth Sebastian Attending Unavailable kamron, Neptali White Attending Unavailable [facility], Neptali White Admitting Unavailable Friendship, [facility]. Primary Care Unavailable Lucía AUGUSTINE, Manolo Dan Attending Unavailable Medications Current Medications Medication Drug Class(es) Dates Sig (Normalized) Sig (Original) alendronic acid 70 mg oral tablet (9 sources) Bisphosphonate Start: 06-16-2018 take 1 tablet by mouth every week Fosamax 70 mg oral tablet 70 mg = 1 tab(s), Oral, qWeek, Refills(s) 0, Prophylaxis Start Date: 06/16/18 Status: Ordered Repeat number: 1 End: 03-19-2024 alendronate (Fosamax) 70 mg tablet Take 1 tablet (70 mg) by mouth every 7 days. 03/19/2024 Discontinued (Med List Cleanup) ALPRAZolam 0.25 mg oral tablet (8 sources) Benzodiazepine Start: 05-09-2023 take 1 tablet by mouth three times daily as needed for anxiety alprazolam 0.25 mg Tab 0.25 mg = 1 tab(s), Oral, TID, PRN as needed for anxiety, Refills(s) 0 Start Date: 05/09/23 Status: Ordered Repeat number: 1 amitriptyline hydrochloride 75 mg oral tablet (9 sources) Tricyclic Antidepressant Start: 06-17-2018 take 75 mg by mouth once daily at bedtime amitriptyline 75 mg, Oral, Once a day (at bedtime), Refills(s) 0, Anxiety Start Date: 06/17/18 Status: Ordered Repeat number: 1 aspirin 81 mg delayed release oral tablet (4 sources) Platelet Aggregation Inhibitor, Nonsteroidal Anti-inflammatory Drug Start: 05-20-2023 take 1 tablet by mouth once daily aspirin 81 mg Oral EC Tab 81 mg = 1 tab(s), Oral, Daily, Refills(s) 0 Start Date: 05/20/23 Status: Ordered Repeat number: 1 Start: 06-16-2018 take 81 mg by mouth [...] Date: 10/14/19 Status: Ordered Envive oral capsule (4 sources) Start: 07-24-2021 take 8 capsules by mouth once Envive oral capsule See Instructions, 8 cap(s), Refill(s) 0, samples given to patient (Rx), Per physician's instructions. Start Date: 07/24/21 Status: Ordered Quantity: 8.0 Unit: cap(s) Repeat number: 1 Start: 07-24-2021 take 8 capsules by mouth once Envive oral capsule See Instructions, 8 cap(s), Refill(s) 0, samples given to patient (Rx), Per physician's instructions. Start Date: 07/24/21 Status: Ordered lisinopril 40 mg oral tablet (10 sources) Angiotensin Converting Enzyme Inhibitor Start: 05-09-2023 take 1 tablet by mouth once daily lisinopril 40 mg Tab 40 mg = 1 tab(s), Oral, Daily, Refills(s) 0 Start Date: 05/09/23 Status: Ordered Repeat number: 1 Start: 11-16-2021 End: 03-19-2024 take 1 tablet by mouth once daily lisinopril 20 mg tablet Take 1 tablet (20 mg) by mouth once daily. 11/16/2021 03/19/2024 Discontinued (Med List Cleanup) Start: 06-17-2018 take 5 mg by mouth once daily lisinopril 5 mg, Oral, Daily, Refills(s) 0, High blood pressure Start Date: 06/17/18 Status: Ordered take 1 tablet by [facility] once daily Lisinopril 10 MG Oral Tablet TAKE 1 TABLET DAILY DIRECTED. Quantity: 0 Refills: 0 Ordered: 23-Feb-2021 DO Active MAGNESIUM GLUCONATE (1 source) Start: 10-14-2019 take 1 mg by mouth twice daily Mag-G mg, Oral, BID, Refills(s) 0 Start Date: 10/14/19 Status: Ordered magnesium oxide 400 mg oral tablet (6 sources) Start: 04-14-2023 take 2 tablets by mouth once daily magnesium oxide (Mag-Ox) 400 mg (241.3 mg magnesium) tablet Indications: Paroxysmal atrial tachycardia (CMS-HCC) , Premature ventricular contractions TAKE 2 TABLETS BY MOUTH EVERY DAY 180 tablet 3 04/14/2023 Active Start: 02-28-2023 take 2 tablets by [facility] once daily magnesium oxide (Mag-Ox) 400 mg [...] Active metoprolol tartrate 50 mg oral tablet (11 sources) beta-Adrenergic Ismael Start: 05-09-2023 take 1 tablet by mouth twice daily Metoprolol tartrate 50 mg Tab 50 mg = 1 tab(s), Oral, BID, Refills(s) 0 Start Date: 05/09/23 Status: Ordered Repeat number: 1 Start: 04-01-2023 take 2 tablets by [facility] once daily metoprolol succinate XL (Toprol-XL) 50 mg 24 hr tablet Indications: Essential (primary) hypertension TAKE 2 TABLETS BY MOUTH EVERY DAY 180 tablet 3 04/01/2023 Active Start: 04-10-2021 take 2 tablets by [facility] once daily metoprolol succinate XL (Toprol-XL) 50 [...] 3350 Oral Pwdr for Recon 249 gram (4 sources) Start: 10-14-2019 MiraLax 3350 O ral Pwdr for Recon 249 gram 17 gram, Oral, Every other day, # 255 gram, Refills(s) 11, Pharmacy: [facility]/pharmacy #[id number], 165.1, cm, 10/14/19 13:03:00 EDT, Height/Length Measured, 83.7, kg, 10/14/19 13:03:00 EDT, Weight Measured Start Date: 10/14/19 Status: Ordered Quantity: 255.0 Unit: g Repeat number: 12 Start: 10-14-2019 MiraLax 3350 O ral Pwdr for Recon 249 gram 17 gram, Oral, Every other day, # 255 gram, Refills(s) 11, Pharmacy: [facility]/pharmacy #[id number], 165.1, cm, 10/14/19 13:03:00 EDT, Height/Length Measured, 83.7, kg, 10/14/19 13:03:00 EDT, Weight Measured Start Date: 10/14/19 Status: Ordered Multi Vitamin+ (4 sources) Start: 06-16-2018 take 1 tablet by [facility] once daily Multi Vitamin+ 1 tab, Oral, Daily, Refill(s) 0, Prophylaxis Start Date: 06/16/18 Status: Ordered Repeat number: 1 Start: 06-16-2018 take 1 tablet by [facility] once daily Multi Vitamin+ 1 tab, Oral, Daily, Refill(s) 0, Prophylaxis Start Date: 06/16/18 Status: Ordered simvastatin 20 mg oral tablet (9 sources) HMG-CoA Reductase Inhibitor Start: 06-17-2018 take 20 mg by mouth once daily at bedtime simvastatin 20 mg, Oral, Once a day (at bedtime), Refills(s) 0, High cholesterol Start Date: 06/17/18 Status: Ordered Repeat number: 1 spironolactone 25 mg oral tablet (9 sources) Aldosterone Antagonist Start: 05-09-2023 End: 03-12-2025 take 1 tablet by mouth once daily spironolactone (Aldactone) 25 mg tablet Indications: Primary hypertension Take 1 tablet (25 mg) by mouth once daily. 90 tablet 3 03/12/2024 03/12/2025 Active Start: 02-28-2023 take 1 tablet by [facility] once daily spironolactone (Aldactone) 25 mg tablet [...] Date Documented Da te Episodic/Chronic Cardiac dysrhythmias (20 sources) Ventricular premature beats; Translations: [Other premature beats] Onset: 2 02-28-2023 Chronic Cardiac dysrhythmias (11 sources) Palpitations; Translations: [Palpitations] Onset: 2 02-28-2023 Episodic Cataract (4 sources) Bilateral cataracts 10-14-2019 Chronic Disorders of lipid metabolism (16 sources) Hyperlipidemia; Translations: [Other and unspecified hyperlipidemia] Onset: 2 Chronic Essential hypertension (13 sources) Hypertensive disorder; Translations: [Unspecified essential hypertension] Onset: 3 10-14-2019 Chronic Fracture of lower limb (11 sources) Stress fracture, left foot, subsequent encounter for fracture with nonunion; Translations: [Displaced fracture of fifth metatarsal bone, left foot, subsequent encounter for fracture with routine healing] Onset: 2 Episodic Osteoarthritis (5 sources) Arthritis; Translations: [Unilateral primary osteoarthritis, right knee] Onset: 3 10-14-2019 Chronic Osteoporosis (3 sources) Osteoporosis 05-09-2023 Chronic Other aftercare (1 source) Encounter for follow-up examination after completed treatment for conditions other than malignant neoplasm; Translations: [Encounter for follow-up examination after completed treatment for conditions other than malignant neoplasm] Onset: 8 Episodic Other gastrointestinal disorders (4 sources) Constipation 10-14-2019 Episodic Other nervous system disorders (1 source) Other chronic pain; Translations: [OTHER CHRONIC PAIN] Onset: 3 Chronic Other non-traumatic joint disorders (4 sources) Pain in right knee; Translations: [PAIN IN RIGHT KNEE] Onset: 3 Episodic Other nutritional; endocrine; and metabolic disorders (6 sources) Body mass index 30+ - obesity; Translations: [Body Mass Index 31.0-31.9, adult] Onset: 4 05-20-2023 Chronic Other nutritional; endocrine; and metabolic disorders (5 sources) Obesity; Translations: [Obesity, unspecified] 05-09-2023 Chronic Other nutritional; endocrine; and metabolic disorders (2 sources) Body mass index (BMI) 32.0-32.9, adult; Translations: [Body mass index (BMI) 32.0-32.9, adult] Onset: 4 Chronic Other skin disorders (1 source) Scar conditions and fibrosis of skin; Translations: [Scar conditions and fibrosis of skin] Onset: 3 Episodic Other skin disorders (3 sources) Scar 05-20-2023 Episodic Phlebitis; thrombophlebitis and thromboembolism (1 source) Phlebitis and thrombophlebitis of superficial vessels of right lower extremity; Translations: [Phlebitis and thrombophlebitis of superficial vessels of right lower extremity] Onset: 5 Episodic Unclassified (4 sources) Patient encounter status 10-14-2019 Unclassified (1 source) Other supraventricular tachycardia; Translations: [Other supraventricular tachycardia] Onset: 3 Varicose veins of lower extremity (4 sources) Venous varices; Translations: [Varicose veins of bilateral lower extremities with pain] Onset: 5 05-09-2023 Episodic Viral infection (8 sources) Measles; Translations: [Mumps] 10-14-2019 Episodic Past or Other Problems Problem Classification Problem Date Documented Date Episodic/Chronic Other connective tissue disease (4 sources) Pain in left foot; Translations: [PAIN IN LEFT FOOT] Onset: 01-22-2022 Episodic Other nutritional; endocrine; and metabolic disorders (3 sources) Obese class I; Translations: [Obesity, unspecified] Onset: 01-22-2023 Resolved: 03-19-2024 02-28-2023 Chronic Unclassified (2 sources) Never smoked tobacco; Translations: [Never smoker] Unclassified (2 sources) Onset: 02-28-2023 Resolved: 03-19-2024 02-28-2023 Unclassified (1 source) Other supraventricular tachycardia; Translations: [Other supraventricular tachycardia] Onset: 03-19-2024 Results Test Name Value Interpretation Reference Range Facility Coding Summaryon 12-02-2024 Coding Summary HTMLBase 64 JgouolscOHe2wZi+PGhlYWQ+ QG4PYBVbT25pwURzwS6eN2MP TElOSywgQVBQTElOSyIgbmFt AH5vmCRzOJQv IC8+KB0zUQIeDizipPCfh5L1 dPO4R63iqk4bGYtqoRN9UTMx UmLlwbcqf3gipSl0ENopWjaf OyBt EGRmeH00OWK1bY97Qt60bVYl uILmx2xldQz2GuQtNYGkWPU5 nNcjFScoe0CiCABrJ99wyHXg c2U6 OMBmeYxylRAwArLjvQG5cR6n MUlazqoew1swjeucMjg0is70 cMAer3T4jJW2S0RkwgU7UOEd bGQg KynpwPTUgJ4ezqxeg6rkfqsz BmRiVRXxEZx6ZZs1WUKkfMgw HdNnWT96PTW3WLPwlkSrW1Mc LWFs eYmsErT9v4T4Yr2LB4UPLatu V8NKSUFQINzdsQK+MX61km28 Z7SyMfijVqp2CGFgZPQ7mVS0 aD0n JWCfDHmui7K0kSE0F0KsikGp hr1fv6adSRPmMEhoO10thUEk p6S2ANOjzSR5AKYyaFmaEuFl aG93 Oyc+MRJyiRaxm3VtLccka6mz i3eubWb7JmdtPPOenuWrvPgp VBJ9q0EuUw8sUMYwbJE6iZY0 aD0i ZnYnWyV9DRzrX857RgSeuDPf VmpxA27yY2HmzDF+PHRyPjx0 OOOgaVpjTN1nV2TdEPFpqqli bGVm wHxeYO0hGYMlufabNLNdzS3u VLEoK1b3QaRoWtH6LMqsY8Cy BETypqjkCz16hE2mJpQwVgN2 MGlu R4VdhwH3OOGxiOWoGYwoCWN5 F19lu9Y5VELyMBHfQEW2gSJ3 rM1idCudvuxmbPZrjMrfvyJx dGlj RKymXHteO851ZFHxuWpeCrUr ZGluZyBEYXRlOiAgMDcvMTAv MjAyNTwvdGQ+ZCEnSVW7gHsf PSAn sIDtUGrdJk0srTxihSzlMG8k WWMdqsrwFGQiqS4wUCUluAGo mCloZK0tSLGifqkav420OtUt MHB0 HDHgfJHcI8EaqN2cVsCeMPSq VZKnE8IqhISaOUueK991HDfd AsI6VGRahcZuJ7HyOPIxbGrd OiB0 l3B6At2Uv6BaasigF0CcxHPw QlCcPusqTPr0C1MoYpuckYB+ FL95NNKcVW78AWs8XMR1wLiq PSdi GTGzG0QgiM5uQlSnFMNrRYLd Oyc+PHRhYmxlIHdpZHRoPScx FGCcTaGpqRtpBQ3sTt6aTPKy LWNv lHczlUBdOkImd6dgFWFwUFwi TM9fcUqxD0YopGU1MATay8l0 Op37F34pM2FceJT+PGNvbCB3 aWR0 vD6fJxXyAxV3HDvjZ615CvIa eLOfGzfdk8dyl9vzqTa6KfF7 KOTvqaGdfWplFJU6j7CaIy31 Y29s IHdpZHRoPSIxNSUiIHZhbGln wr4hjA9xLo7+NSCrrBD1hLB8 tR7lTtVtTqF2MJxyM446GpSj cCIv Yxtrx8tiw3emfTx8YdXhDCSf ufWbsQzlDUS5q4CoKu66E0Av vFpuv4ZbEig9bn29iQCba2R2 bGU9 M5XvNBBdnhdfuWZwuGlgFV2s GKMiklyoHNAooF2vIDCuP7c1 SuDxWnZ3IKyvZ2OuvhG5RQDa bGQg CBZsbQGHwX0lvgpeb4njwcir VpFcYZHnEWe0POq3MLTckUcr DzAnRAJ7SbA6CKE6lFPydK9u bGln dbhwiJ4zHro+FWG3pYHtqERI KP6bNxkxfND+MPUtOKL3cRgl NLsbJOZfbD9wUIMiL7m8FzMn LjA1 DLtpN1NhtjB6FASyuQSlTXWp xQHIyB3bayrgz2dvyqxxNbOk FIIpDSk9QKm9HWGydDpfFaOf ZWZ0 XrE5QIV4fZGqqG8cnRfdjsys hO5aDbw+QwgjrKnpVVW5SXd1 R9LuBdq6QNZdyLyaLF6anMYl ZGlu Nd8hlAvcmEuuYX2nCDYcjxyg p210HvSsp9jwZBMdzXTaMRbj HXG3P21za6V1KEWsXQCmOKP5 dGV4 bQ2duVufpiebaTTniCvybwRu lSrvUUieASneV204OKCgqRgg HbLeSLh8L2ScLka4LZHvbQku ZT0n jKMfMFhzZz8xyXqmkCqlNR2j OJVakhitt880WpZuw1bzOHIv oGUkTWwnYBL7U53lo2B4MUJd MDAw WBP2uBF6uQ9qrZjvtirfrDFi bXeibiGydCsjKKfsTLvlY258 YZGinUilAzVemZl5T4XqMxr8 ZCBz qAyqRN5oyCLnCOlnId1aiPtc dRlcVP8fBTVxcuymc841QmYf v6slKJFgzVUbOLzzBZE7N33j b3I6 NNVkTFCzLQL3nWT9zH5awGtw bjogbGVmdDsgdmVydGljYWwt NZfrX352IOVksNgkSeEggOvp bnQg MLfuGJi2S9YcDdtrkSD+PC90 QEDqRC90yEIgfLRun4ipcEe8 UxMmKHIjTUP9lHrmFJqae1Rj ZXIt P79twIIpe5Q2PCUjgVlxqQCq BxIbcFI6cZ8pPYchtowys8gm yuzhTvfse5jaye00aM77T18o IHdp LVZePXNiEMIaWOEtgMyuif0d gH2sBq6+UOVylDL0sIN0uI6v NAPaGlU7MEmdR980NnHusBLf Pjxj z5nur9bfbMd7LnE3CBKgqqZe lUzaEXQ5w3KnXg97P39oEIxj PSMmOULhDKZsJYPrtCxbzi9b dG9w Ii8+VZBtoAR3hGA5uB3jRnPu RkB6EDrdQ270AcSlfVUhXnef I86gT4SmdUI+ZWXhJnk9RQMc dHls XC0vsVRmEBkuEf1aFNB8ZnUw UpEdYBtrJ9CtYISwvubfrice wCS3IXLeXDQyjK89Bv9hkFgo MTBw rXLKaF3rnkpby2quccdnZhBp FKLzHJg5EBp3UKXhiOkkIgVp YFB6UbT7QLV0eRPysP6wwNec bjog eQ0yS0SyPQRrtlvsGd83uW6f YlQmOoY3KBlnZus+S5CJL1zJ RQXONNYuOY0HOvyCSagXKP66 ZD48 pAHev9H1oBJ9Y1RdPSHccbrb ybkfzDE5RJOaLGKocX24zVGi BCgsHc4lh9N5s692MUDqVCEn aW47 Iy4mbVsbETKfiLCQdZ8keuvf g1xafiknYnKzOHObYJr3KUp3 BPPtsJuqOsZqEHS1DvC6YSD6 aWNh pI4nzBtgniutfC4fCkz+MTAv ICYxJPn2VUkeqBH+PHRkIHN0 yJphKCktEXCayD1kESYlL7c6 OiAw EjJ0PFueP8CdNYQgxuqjPo29 gI3kImImDlW6RTxoD1ZpqfT5 TRHzhGXkFTbrDGI3E78zc5Z8 ICMw HNYyWPP4bAW0vZ6nfTbghhcg bGVmdDsgdmVydGljYWwtYWxp L173IWNqlYckFwa1AAwoXWDp PC90 BS32fVTsr4F3yZJ7V2ZdZWFv aefuzvboqNV2FWFnWIXgxS24 uTAcJUkfSn2og0P2v224YFKg MDUw cA10Se6uwCmyQVHrzJUVkT5o ctcnh4jmioqnSsTaXFVwTCs3 WOq9VZExhQijGaTaDMJ8QbV9 ZXJ0 eIUkgZ6qjEyqjschpH8fMvs+ NtABCSiMCF78YI87eBGrf8K3 uTL6H3ZeQVRibhvrjshcxVD3 IDAu XPOvpF50zDMhFBugNt1ju7K1 z804CYSeOOKmtI64Bs0ndAuv FFBbfENFwB9zouisa5wvztbx IzAw MMIsUAt0BUy2KFQrbQgwGxXq VHC8LoW8IKH6tPBrsA7itQcd fuwamU4gCus+C1Q4V4QqRfsk dHI+ HO65KVLcLL28gOPihWZro5dv vTn6KvCmASOoKAJ8oNqkVBcp k7QuSWGiI44kvNKtu8P9JHBj bGxh yMHdIxPvmVK8aZ2nZJmwfybq c8slcrftNhinu0dowh24xM72 N31jGYijAPIuBWXuOUIiNSRp bGln wm8woY7xTw7+TDUarVZ1bBL9 gF1yMtXoFzK7BYsxZ008OuYl cPJyLxweu7bde2bnjSd5RiQm JSIg pdRalZvhVTM8a9KoQk57I98v IHdpZHRoPSIyMCUiIHZhbGln oz7qeA2qWh5+BB1mg6upwi40 cD48 dHI+XXImZRT4nSkeTVplGODc dL6cICicSqH5ZBLaEpDtaQ05 xUKkMRooGc6wmEpkeKdsWG5k NTBp cuyqm283IpDkc6taNPDerRAs QQkaXJY6L32iu3F2JRTxAUQj XTO0jEF5wT2coXyswrothBFw dDsg bhCqkYkvVLgiQKpcT087PNEy dQvzAqXznKQlA7pyqmGVNT7q OjwvdGQ+JSPtPLP8vSzhCFpq YWRk hL6bRHGfK8c8RoUiWiO1HSyw F9SwvqO2CXMtdNCnOOIekNFU uM3yoevfq9wkuzcjUpTpLYVj MDt0 MAa3MBXgwJenNzMuXJU3TaG5 RMP8hBPvvV3njGnrfwioyV4e Oyc+RklOOjwvdGQ+PHRkIHN0 eWxl YUqgDVPgfL0hZRGyY4p2BvMn FoR8DTfdC6YzncN6MIIapCKj JCYgeKFClZ2eqcqst1yofwak IzAw BFCoGEt4RZf3VMRonFheVqOp VKX7PpF1SIU7aSAkmI0lfIpi tmbbfO5gEtq+TVJOOjwvdGQ+ PHRk DCR1rZjzRKzeTPHtjY1cIBGd A7b5KzQnBsE1CAykC7VerzK9 PKPkoUJnQGKzwBXWaZ5skcwb b2xv rulbJyTqXRFaVFg5PFr9LVFo mWbuIsFwVVI5HyF8UQU7pPFb pA8rsZpseexsuJ5zGsd+UGF5 ZXI6 BK73YY88A0DuHinepKNoiEC+ PHRhYmxlIHdpZHRoPScxMDAl SiSfeJkkIE0yLo2wGPEzTKLi bGxh cHN (more content not included)... [facility] Coding Summary HTMLBase 64 ZonpjtrrCAv4nUj+PGhlYWQ+ SX2JGPMhS11vsXFowO5nW8JP TElOSywgQVBQTElOSyIgbmFt AE8kxUGoDZAp IC8+HY2oCQAeRultiAFmr5Q6 oQL2R22ran1hBAnrwOF7DZTl LrEmxmjea7vmmBy4ZFoqCmdm OyBt UCQkoH27JMO8yZ90Qc04iFFp tJUbx3rolTq3OxElOFUqUHD9 oNmsQHrrz4InHGZmF23xsVUm c2U6 TBHscYhwgYXdVhSmrZV0hI2j UKnohmmhc0auqxyqLuc7hy68 iXQhv7K4dOZ0D3OamjN1GUNa bGQg HlkzdNQKwH5xwliaf1ugbbfm DqNwRLPwWXd9WRx6IJKodTwi KtItLX85BOW8IVWlocBqU8Vf LWFs eHonAgS5q4Y9Nc7EE0SSXesh X1NUGCNJWBakiYE+MF54kc06 W0WfDqetLsc1AQNdLIT5hDO1 aD0n MTRgUOxig9Y9mAA6Y0ZsmqVh ap3um3rcDMCzHKxiZ25buYEz c4V4VYBwkGE9ITYygNraPrHr aG93 Oyc+MLPgcFntp0YhRkpqc0xg c6izqCn0KyusMSMbdsPvmGuy AZE4u4CcCt7pYURzbKZ0iCM2 aD0i EcZcOmT7YJltB387QxAyfFTg PrypW51oP8MfiAK+PHRyPjx0 CDAeaSgjDC5kS0EbTRJgdoco bGVm rLrjUF1zRTDtyhfhVOLngS3x ONMrA6c2WgObElW2BFycJ6Ea MEPriolxEc30vL6gOmXwEiP1 MGlu E0HintC9XQJevFQnDGjaPAR6 N75fm1E8HTOvHMGkJIG3tNR7 lZ7jsDlzfgrkgPAolXzqudPd dGlj FNvtTXnyE212LARchBuuIjBx ZGluZyBEYXRlOiAgMDcvMTAv MjAyNTwvdGQ+HSHjPZV4qFdi PSAn qJDzACxcPa3gaLoxaThgTD8l GTAmbplhKRIjdI2pEGNkxTDb dZmrXS1vZVOimzdeb248XyZa MHB0 WGBkfKZkZ4LmvN1dLzUdEETg SZYyQ6IseGAhYIhtN349LVur GyS2ONBcavIiK3DzXYBdzWya OiB0 b6G9Zp6Hg5HxdkrgV1IwdNOo NtVuJttyYVn3K5PgEnghyLS+ CW95KUVnXA00ZKu3JLJ1iSlm PSdi PKSkP6MlbM4aYwUzAWSgGGAg Oyc+PHRhYmxlIHdpZHRoPScx WRLoOuNhkMhpXA2eYe3pGUMg LWNv dOzyiYXjQmVvg8zxYZDvXHgn WA1abSmxS8WpvYJ3YDKsm3d4 Qj82T01qQ0ZhdJW+PGNvbCB3 aWR0 pH5lDbJtGsG7JRnyU809UjIx mQOyTkuxp5xqa3vpqOw2VqS6 KVRdhvVikButOGO2c9CmMp83 Y29s IHdpZHRoPSIxNSUiIHZhbGln ha0gbD9eLb4+UNXbfDQ7cWY2 tY1iGkAnBjI7TLqhM341NgQd cCIv Wocgk9rwa5kvhCr3DrGuFIBo ysFeaGefANF2v3OyRr03Y7Gm zNkvu2YlHnn4sq51nLWlq7J9 bGU9 H3JtJUTdpcrdeFYzdNosNI3c VXAfviibKDEswE4oZBBbY4s9 XxAtBiG9LZslR6GrfaY3VMTv bGQg YPVwbVCTuT9shqzhs3umzivc WiIvNHTvJZn8DYt2HHBbnUyq DxYrDCD8QyF5YLF8iBZzkD2c bGln tjzuiE5mGaz+RYI7tPVknDBG LA8rFzmjvHM+EKIzKSX6iGwt JMjlIGYngN0uIXTzJ6l6YoTd LjA1 ZVavY3CogaU8GAUlqWIoFEAx eFSBqC4qavutm2diyzjwMwQr CTFxORl8WCp3ZMSvyNjtSaQc ZWZ0 EcR2VZI4wUNsjY2stMonlaat yQ0pJlx+JwnpcHlxQXO8SPp2 L9OkIvr6ZECudCbqWH5rvWJn ZGlu Mi6czDrzqFqnXC5sGCJorguh s393OmFdr3buPHLtkMLmMPlk RBN2E09pr0N0JSEnALLqKLY4 dGV4 rF5emUudljrjwGLdmBtjqhYa ySwfOQfyIXimA746NCNirYws BcEaSEk5C1OpNfq1DEKxlQme ZT0n wOPuLFtcJc7ewWfdhGwnGW3q WUNuwidaj549ZxNbk3oxYICi lLAeEFamNCK6S55nd4G5TSGe MDAw OHY0hTN6uK1rzNcriujyuCXa uMdhodYkpJnbOQwdLZzuX461 DSApwJqxTlJhxXj0W5QwSkc9 ZCBz pMwvES6sfDIjVHvyCz9trGov zRviVD7nWRKszqaij406ItSz d4xzACHavZDbIGqaZQT2S20p b3I6 USNuROKqRGG0jVU8tU9jzMkc bjogbGVmdDsgdmVydGljYWwt ZSyjC332OYIhhHyjCfYwdEub bnQg XAacSHh5A6ZfSeicwUL+PC90 CBSyQX41uYPxjECyy2acyUk5 KsNbCTSmZQS7tNzkIVdxn0Mr ZXIt C58ucCGfg6G2MSZxsAnsiWZi ZwKpqPV5eH9sJDcjcbsfz2sa oykgHyowm8kjva58dS09U69e IHdp PCRhSRBeXCIdPXPzhOvwzn3b bW3xVz5+GETdcJJ8oYM6iC6b EZZgZpM5BXdjR298QpGrlTJp Pjxj a7hnu2vxaKz2NcW5YUJdfcQl jEzcCZR1z4IlRi93C34gNMwc MDLtLSXmFPXaABHfhNbcfb5t dG9w Ii8+PFZteAV2sMT0kS5zJrKp WmP4LLjlA758IgYrqOHwMocu X05xN6GlzEX+KODxBsq1EIBt dHls QV8aaPKkHOfrKb2mNFZ7HsEc AvZmNVqvH5DpSUDuborwyklh fCL2LTNjRBVqrM35Hk1scGmu MTBw vUNAbJ1khsjre9uhkysoOtEk ECGxNQa4TUr4JZFomQkdOiPb JQL0VqH8VKF6dTBfzT6egVyz bjog gL6mP0RdIGJlissoKf95oJ1t JoBrGrA0DZmyVps+O3AEP3lA CTEGATYePY5ISleXIzlOVW62 ZD48 lVGlg5L8pFS5C2ZkVSHyglpv bvlirWG1ETPtMLQqpN90nUHt OQmpSo2sm6G6h856GCFvOVGe aW47 Dw5arTrgRVZmwXCNuT9cbblx f6qkgblsXlIsNCRuWVs7NCw6 IBHjxYinGkIeVGQ9FaK8YCV4 aWNh pS4roYsexcdgtU8pIvo+MTAv XFObXJd4GWlwuGF+PHRkIHN0 jXotLPkeRUUanJ6vQXUnW3k0 OiAw SaG7KPifH9PiUUGyeqtkAy19 xK0rJqJtTnH1PLyxU0KzaeB7 QPPmaEMfHHsjTNP3I14tb4Y7 ICMw AGSaXTF0cJI9gG2hpVbmahiz bGVmdDsgdmVydGljYWwtYWxp D786BKQnfDziVux6OQppGUBz PC90 HN44fSIhs3G6zUV8R8YoORVt lpfkpgtbhWZ3HUPwWHQhuX02 cYSeNXnlDc4wr3T1n058TZRf MDUw jI63Sy8fkYwuRYPwbEJNiT6o jpcpp5gjtqvtRpVkVCZdSUl5 YSw6DOZkcJknVrJdIYF6XbP3 ZXJ0 rLOvkZ5ebSedphoqdD1mJwy+ OxTTZBvSDR15XH25kNBib1T7 eLQ1C9ZzXUNceybzlprgwQN6 IDAu DYAhgO90lLGrQAqgMx9os4D0 w187HHEgMFSpcC38Ze6tnFtg ZNBbbNVLyV4ihggfd7teqtuo IzAw BHGxEWi3WNd8NPXvkCtvDkVa JXP6GeB6RKE4bJGshI6btCfm ydrdeS1lMpx+U6H4W0RrMmdx dHI+ ZQ91HBWkQF71xFVerLWnl1eb aNb0YsOgRSExHJG5tNgvHMyk c7XbVDUqV70esRHrb5T1HCPs bGxh hZAqNaNabBG8jX1lTBgxbpeb n6olmojcWpend8pcje87nK03 G59xHPltIIBfOXTqUTYpJDUz bGln ps6wtV0kFn1+WLDbqVW0zMM6 kI0pGcIoRlS2BCkqE806XfEa yFMoUkbbx2qsy2ewdFz5WrPa JSIg znAzlOjrXHF4n0SoQp52H72r IHdpZHRoPSIyMCUiIHZhbGln uv2ceJ8iKh6+MZ5tu0pffo16 cD48 dHI+LTGzHOR4iUciUWssXGEr oL7nWKlyMsM9WWTfYlPvzY20 fAUhYHzcGv3brRcbvKnpLH8f NTBp keeqr268BmZkf6geHWTteVCb ISuwIJA3A72lz2I8SAOkYHRs QRM3jKP5hT0iiBuhtsgteAPq dDsg kqGjdOjlHMyhYWthH260IMUa jOaePwZycMNlO2tiauWIWM8y OjwvdGQ+WEGsPRR9bWgeESlk YWRk bK6sSFYoP4n9OnFmClV3BJmc X0PjdiI4BBFtlUVxWPVvzGVT kX1xujmgw9mwvyzdSzYgSCRj MDt0 YEh3XOVktQvvExKsQYY5YrL3 SKD7qNKouB4ijGamvhycvO2n Oyc+RklOOjwvdGQ+PHRkIHN0 eWxl UVkjOAXtqK1tEVJeE2d5KwXu ZgA7FKamB4ZigkQ6JRPgzKYb FLHeyRREkX0cgtljb0cczurq IzAw JOEzBMh7QKr5LBJffIpcNvQb XZN1QlS0EKB4pQEqiO9qkHph hkiylL1oKha+TVJOOjwvdGQ+ PHRk ZHX2kEczSNquXAThjK2kAJFt G1r8XrPySaN0PZtdX9WphyE4 KZQzaEEmTRKraYGLtT3vudtl b2xv piivCdYnVOUcWMp7LPz5OZBe uAuzDcOhMGW1MsZ2USF4tOAk uQ9qrPxvzbpumU7wNhm+UGF5 ZXI6 HY62XV01X1FvNjalwXHoxMQ+ PHRhYmxlIHdpZHRoPScxMDAl SxXqaPmsOQ4vSk2wCVZhTGMi bGxh cHN (more content not included)... [facility] US Injection Spider Veinson 11-30-2024 US Injection Spider Veins EXAMINATION: US Injection Spider Veins HISTORY: Varicose [...] successful sclerotherapy as described Final Dictated by: Ananth Valentine MD Dictated DT/TM: 11/30/24 10:42 Signed (Electronic Signature): Ananth Valentine MD 11/30/24 10:42 a Technologist: GENE [facility] Patient Handouton 11-29-2024 Patient Handout Radiology Sclerotherapy, Care After After sclerotherapy, it is common to have swelling, bruising, and soreness. You may also have: ? Some changes to skin color. ? Slight bleeding from where you got your shot (injection site). Follow these instructions at home: The instructions below may help you care for yourself at home. Your health care provider may give you more instructions. If you have questions, ask your health care provider. Injection site care ? Follow instructions from your health care provider about how to take care of your injection site. Make sure you: ? Wash your hands with soap and water for at least 20 seconds before and after you change your bandage. If you cannot use soap and water, use hand tongue stitcher. ? Change your bandage. ? Check the area around any injection sites (injection areas) every day for signs of infection. Check for: ? More redness, swelling, or pain. ? More fluid or blood. ? Warmth. ? Pus or a bad smell. Activity ? Do light exercise every day, as told by your health care provider. Walking or riding a stationary bike may be good options for you. ? Return to your normal activities when your health care provider says that it is safe. Ask what activities are safe for you. General instructions ? Take nlzj-wos-setljge and prescription medicines only as told by your health care provider. ? Do not use lotions or creams on your legs unless your health care provider approves. ? Do not smoke or use any products that contain nicotine or tobacco before the procedure. If you need help quitting, ask your health care provider. ? Wear compression stockings as told by your health care provider. These help to prevent blood clots and reduce swelling in your legs. ? Wear loose-fitting clothes on the treatment area. ? Avoid being in direct sunlight. This includes avoiding: ? Sun tanning. ? Using tanning beds. ? Do not use hot, wet cloths or any form of heat near the injection site. Contact a health care provider if: ? You have more redness, swelling, or pain at any injection area. ? You have more fluid or blood coming from any injection site. ? Any injection area feels warm to the touch. ? You have pus or a bad smell coming from any injection site. ? You have a fever. Get help right away if: ? You have leg pain that gets worse when you walk. ? You have redness or swelling in your leg that is getting worse. ? You have trouble breathing. ? You have chest pain. Summary ? Swelling, bruising, and soreness are common after this procedure. ? Check all injection areas every day for signs of infection. ? Wear compression stockings as told by your health care provider. These stockings help to prevent blood clots and reduce swelling in your legs. This information is not intended to replace advice given to you by your health care provider. Make sure you discuss any questions you have with your health care provider. Document Revised: 08/15/2022 Document Reviewed: 08/15/2022 [employer] Patient Education ? 2024 M[employer]ub[employer]. [facility] US Injection Spider Veinson 11-24-2024 US Injection Spider Veins EXAMINATION: US Injection Spider Veins HISTORY: Varicose [...] successful sclerotherapy as described Final Dictated by: Ananth Valentine MD Dictated DT/TM: 11/24/24 12:02 Signed (Electronic Signature): Ananth Valentine MD 11/24/24 12:03 p Technologist: [facility] Coding Summaryon 11-16-2024 Coding Summary HTMLBase 64 EdirzqtuIEb3gXf+PGhlYWQ+ [id number] TElOSywgQVBQTElOSyIgbmFt TS9twSClRYZf IC8+YZ3oGHUaTugopPQpk0J9 kZQ0H69xbt1cUFfvyGQ3PDIw LlZyllbil7ctmLj6YVmcNtnc OyBt SQTxzG16QLC0lU27De01cAWh eVXnh8ntxWd0PvYzCUOqYFG7 bSlsPQxmi4FgMHBoB54riQMn c2U6 XOKxkVgcjGSiKsUrrSQ8xX7p RRrhlbxql5kobjhuYcu7kh20 wFUtv8U4lYD1S3OqaoX7PYXz bGQg XmjiaOXPuF6euokkg6qeszyl GuEuVSMoXBy1IQh0PGUbkXdl OpFtRU23AJW0LDBtcuFoO4Po LWFs zGocOnO9b0R4Ox8UZ8RGInam D2WIMPKLRCotaQI+XH89nf16 D1XmDcrfYxo2RGIjZFE0yTZ3 aD0n DKGyMXdch1M8eZF3Z8AcvgMb ba1yo9qaDATuJXffM87tsRZd z9V8KEAwiSJ5XBNvcQfgBdKs aG93 Oyc+QDSuqXrje4DcUwcxg6ue o9dgfDu3VaqqBGYaajYgvEub FLV0q1GpLl8fCFYbkCN2jFQ8 aD0i EeMvZbB2AMyvH634TgAcaDHp RhkpE93fV6KzpTZ+PHRyPjx0 JEVzeGehBV4cI3UsSRCiuubp bGVm rXtbCJ9eBFEbblgdVKJlxY8g HTAmB1q7NkLdRmV7MDpiZ7Aj ANIvnzgnAr17zP9uAeTxHnO8 MGlu Y5ZzdbF2DGKekIAcDTlrCXP8 M50rn1Q6AGPeJDOvOBN1fTA6 lP0stOmtrkcnxTFjyOcgzmOc dGlj REwgLDdwZ125VDVvgOziEaJj ZGluZyBEYXRlOiAgMDYvMjQv MjAyNTwvdGQ+HJJmKDE4kNae PSAn qRVrTKwcUx2tlJkbmAxsOL1h JHEodebuWMFesR6jLKAhqRFj iEreLA1lINTmubbam239RdKh MHB0 MMHdoKTjE3KnwK4vYqFdMVTs TRRnW7LhsSGhUBwsR178CEcz ZuW3MJSixtCyC5JpBRCjfSqw OiB0 n7R0Cz5Wr4PmcvdqD6TjkCCi RoSbYjquRUk2M9NaRvygeVI+ CL68EFPrTB52EKj9GLM2rJxo PSdi MBBhO0OvpF9iQgMwVLJjSXQv Oyc+PHRhYmxlIHdpZHRoPScx WMPxOoJswPpbBL3rTs9lSIBn LWNv uIazuGCkLfEsj6iyMDGyRSqs FN9ezXjlX8MxcUR3HHGre1f4 Zq15L57jL0ExuSB+PGNvbCB3 aWR0 kC8nOtXkTgD5YOamP446BnIn vHZfXtgdd5qiv0zvzMy5PwZ7 JXDxmdKwuZbcVPW4r0QbMz42 Y29s IHdpZHRoPSIxNSUiIHZhbGln vg7ujI6tMt8+HLQlcCA3eWH0 eY2pIqOcZtL0NGqiH594ElKe cCIv Ptkxa7eso3aayBr3JhJyTEJi ixQdxScuGVX7v2JsHe34Z6Th fHozh0KuAbn8wv06lDGih5L9 bGU9 K9MyDHAbmavwdENejGgaFY5c KXZwzaqfIRHhwY3cAZZxP3l4 FrEeCmD0LIimS3KljcD5UVXw bGQg HYScuIXJyR1iryvli4kcabfi EyLlWFWzOOz1TXf7NBMefFmd YcDzDOQ3ReN0WKK5hXEadP8p bGln ljjjbK3hWlf+LTO9lPDsxGKV VR0pIkjjaKG+XHXvNEB5tLvy BGejZDEneU6vOPPpC7u8WmCb LjA1 OCwcY0IeoiD3MYQlkUDjWSHe uLOBcN7caeqlf7buvshjKzVl FEWwHQj4VTu0YAUmhUkfJlMu ZWZ0 WiS1ZWX4lOAqgD9vmQrilbrk uC8vCbi+IjszzIkqUFB2QUi9 S5CaNfd3VMNckIilWN0cpSTu ZGlu Lw2ikSznfJiyND4oMVNdursf b731RjAmf2iiEMHesGKjCOtv UIV0T36zg2O5PZQhSKRoKUX5 dGV4 bP5pgJvnoyunkOAzcFlhgcYr bDadLOhvZBwzF538KIUcfGzc YiOyJPx4R0DvDov0MCYbtIqv ZT0n nMEtPOyhHr9hyAdyvBfgZB3s CFLnetwjy768ErObj6qaVBIj eCMgDLxqBCV5U17hy1I6OMTj MDAw AMU7oAR2gG4vkJxymrkspEKz cTyocrZxiHblFTiwCOuxI712 EFVpiMueMdCqmUo1P0UoHtc9 ZCBz uYytWA1rgBEfDDevSi9ocNdy pHqjTK1jQWMeneueh682VvKx a2cvJERwxJEfDBltHDM0S94c b3I6 ETCzQQApFGW1oLO8zO7spExg bjogbGVmdDsgdmVydGljYWwt CLpuS973RXJlxKswZhAyvJqk bnQg VVmhWFi3U2DlWebddQD+PC90 TQQrHM36xWOxwKYbx6bpiQw8 YyHsWRBsHHA8hYxtDUuyt6Td ZXIt G49plVAbq1S1TLJyoHncrMDq VlAhvRE7nO0xUHqehkyxk9st fnryCsmfc8xbaf65wT26M26p IHdp JNTrKBBaICXqECQpzQynwu9m jB2kBp9+DBQzwVR4tBH7hX9i VDNvLaV7NYyzO372WkXnxMFz Pjxj q1bgy6wjuJt3BiH8ANUcvpKr cBvfBRZ3m7EzFh17S66bJBjx KVVhYXRjMSGbTSUmyEhcej0s dG9w Ii8+DNTanEQ0nYL6tW3yYkFn UmJ3FMftD742AlCkbUKsIiaa X14qH1YhxYM+SPOqOlx8QVWw dHls EO9unJSkXGuzSz7jKRO8RuCt LbEnWNvoH9ZpKEZgiqbuctqw iQI5OLBwVXIdiB56Ts3lfAtm MTBw tTPAvU5nazjuh9hgbahnMrEc ULXgXHy9BNv6BSVnyYrsQuHs TWV9GtT0EIW2sPZytQ8gbGsx bjog nP2eO5VwYCCmlzxxFi35fI1y GrYuAeU0JQbaRjv+K6MED0eT QGSWLNOlWH9DOmxTJfjTEP81 ZD48 kIIgo2L4vIB9S3HxPKBkwpsx aqagfIT2XJUaRXRivZ63fUMe TSojXr3sg2I9e180GPRcRMZr aW47 Lh3jcErjFAOraKYMiG4qqlzg q1uyjeijQgNjUVNzGXh6SDz3 VXWdpDmwAbRlJJP0KrK0VYU7 aWNh cI3fmMjfuhyzrK6jOmz+MTAv YMEvXDa7ROkxnOF+PHRkIHN0 fDpwENpaTTMznA8jTOCgL9d2 OiAw TaI8UAxuU5FcTFZeqcdhCm87 qT5ePvJmXnS0XWegE2OhqqP0 RGKhdGDfWFaaIXS1U59ly1I6 ICMw CPQaXLM9gOW2zD9nrUdasnea bGVmdDsgdmVydGljYWwtYWxp M931EOUkeRqgWea5QLaqKIKh PC90 RI53aHLbo4D3yLZ9L4ItSLYh rspvigkjxZU3FFHoYPNgbB06 vBAfDXokQz1gx2Y2u234CAEu MDUw bG67Vj1nnLzeXKKxsZCGaF2m xlrut7rkegbnCgKmJXKbQWu7 FDt2HWMxxVawRyUbUQZ2QmJ3 ZXJ0 xCAsoP0piJdymjmbjU1zMdk+ UlXIXKyPBT77HS89lMHmj5K9 pBQ1W4GwLTThqmjanwshaIH5 IDAu KCJwoY21gCYqHHntOl5qv3A2 n414GCZdVWVtaO00Ek2vvCjf RQHrnBDVuS7hbzlbx8ylhypg IzAw BFIgZDp6ZJy7VGArmAgsFdCi KUS7KzV7EAQ1sEIewQ1hjWjq ajybvY3iGmy+O0X7Q3LyBidu dHI+ ST18KATdQM46lANfbPSvo4nu pWh8DlPgBZSnBVR4aFtpCUia l7JrBMAhB30qeKHjv9X0UQQn bGxh qQQkHbFjuKC9mJ8rUIepmigj t1ltflqpYmtdn6stww41oJ59 T71kAVzcODKpXVIfPMIpILYp bGln nk4feC3bKb2+OPToxQR1uSS0 mD4cVeKvZhL2RRmbJ286NnGs fQBaBzqxt4mtq6qymKw8ObLi JSIg doMkaSstMXT3t1InHa22F73q IHdpZHRoPSIyMCUiIHZhbGln wv8euO8hIv7+FT3ox3byhr25 cD48 dHI+TZNhNEC7uEhmCMirNOFb pU4rXLxzUyV2LBRpKvWyeY48 gZCtXRagLa7dhLnbsOffJD0n NTBp pynvt638SnYgp6roTLRfbMQh CDwpKIP4M94ie8S2YRQfDUWh LIQ1uLK5pO8pkAtbcfsvpABz dDsg ieBkzOdlCXtoUUmqH562KIUh jIboWtWshIKoA2doetBEYY3b OjwvdGQ+VVMlLSY1dVlxZArj YWRk cB8sMBMpW3w7MmZbStL6XLgu O0ExtmG8ZKIrsCTiDUFcbAHS tY3lceghv0rpytotWuIxMCSt MDt0 AZn9CYRrcBrzUbLbDMN1AcF0 TVL3cQNrrG1mbJibgntxvF6t Oyc+RklOOjwvdGQ+PHRkIHN0 eWxl NQrlDVMrdQ7cCRMgU1a5YkRe BwA0XPjwA6CilyW0PUUxvFLv YFQipJDKvG0djmjaw5glxbok IzAw SCGuINm7GXl5AKSkoIdrRuFa CAD8ZlU7XDD9gKNrwF0idAsm ufnhtF9sKeg+TVJOOjwvdGQ+ PHRk VYO6yZciSOerRRCcfG5zIAYw F1s7QgPxJuJ8KXreJ3WkppK3 CVVcoRRvAPKcmLPWcT0qeyhe b2xv ftflRaTwYFChFDk6VWs0MIIa xIqlVdApRCL9FxF5HMB4bHPf jB2ceWjzpaehgT2nXcw+UGF5 ZXI6 BD18TE45G9YpIblpdIWovWW+ PHRhYmxlIHdpZHRoPScxMDAl HhYqkXspTC0bJs7iSQWjKANp x cHN (more content not included)... [facility] US Injection Spider Veinson 11-11-2024 US Injection Spider Veins EXAMINATION: US Injection Spider Veins HISTORY: Varicose [...] SCLEROSANT: 4 cc, 0.5% polidocanol VEIN(S) INJECTED: 26 veins in the right leg VISUALIZATION: Ultrasound was not used to visualize the sclerosant ANESTHESIA: None COMPLICATIONS: None IMPRESSION: Technically successful sclerotherapy as described Final Dictated by: Ananth Valentine MD Dictated DT/TM: 11/11/24 11:47 Signed (Electronic Signature): Ananth Valentine MD 11/11/24 11:48 a Technologist: [facility] Patient Handouton 11-10-2024 Patient Handout Radiology Sclerotherapy, Care After After sclerotherapy, it is common to have swelling, bruising, and soreness. You may also have: ? Some changes to skin color. ? Slight bleeding from where you got your shot (injection site). Follow these instructions at home: The instructions below may help you care for yourself at home. Your health care provider may give you more instructions. If you have questions, ask your health care provider. Injection site care ? Follow instructions from your health care provider about how to take care of your injection site. Make sure you: ? Wash your hands with soap and water for at least 20 seconds before and after you change your bandage. If you cannot use soap and water, use hand tongue stitcher. ? Change your bandage. ? Check the area around any injection sites (injection areas) every day for signs of infection. Check for: ? More redness, swelling, or pain. ? More fluid or blood. ? Warmth. ? Pus or a bad smell. Activity ? Do light exercise every day, as told by your health care provider. Walking or riding a stationary bike may be good options for you. ? Return to your normal activities when your health care provider says that it is safe. Ask what activities are safe for you. General instructions ? Take snch-qyo-rzhvwfy and prescription medicines only as told by your health care provider. ? Do not use lotions or creams on your legs unless your health care provider approves. ? Do not smoke or use any products that contain nicotine or tobacco before the procedure. If you need help quitting, ask your health care provider. ? Wear compression stockings as told by your health care provider. These help to prevent blood clots and reduce swelling in your legs. ? Wear loose-fitting clothes on the treatment area. ? Avoid being in direct sunlight. This includes avoiding: ? Sun tanning. ? Using tanning beds. ? Do not use hot, wet cloths or any form of heat near the injection site. Contact a health care provider if: ? You have more redness, swelling, or pain at any injection area. ? You have more fluid or blood coming from any injection site. ? Any injection area feels warm to the touch. ? You have pus or a bad smell coming from any injection site. ? You have a fever. Get help right away if: ? You have leg pain that gets worse when you walk. ? You have redness or swelling in your leg that is getting worse. ? You have trouble breathing. ? You have chest pain. Summary ? Swelling, bruising, and soreness are common after this procedure. ? Check all injection areas every day for signs of infection. ? Wear compression stockings as told by your health care provider. These stockings help to prevent blood clots and reduce swelling in your legs. This information is not intended to replace advice given to you by your health care provider. Make sure you discuss any questions you have with your health care provider. Document Revised: 08/15/2022 Document Reviewed: 08/15/2022 [employer] Patient Education ? 2023 [employer]. [facility] Coding Summaryon 11-02-2024 Coding Summary HTMLBase 64 QtxlwzdgLSp0dLs+PGhlYWQ+ [id number] TElOSywgQVBQTElOSyIgbmFt YF8neZZdKFDo IC8+IR5gCKBgPfohaSMra1D8 pSD8Y71uxg4fIHychOJ7OQEc ZlIvxspsv8vwuIw1XIafZojn OyBt KWUnaA81RAS5rC65Eq13kXQh ePFeu8mwaHe5PcPnEDOzUTE2 eBreUOkbb5RnFABxM65snRZt c2U6 LLJuoDuwcJWyKaLnuDF0vZ3d JKldeedwp3acdbavYtr6oj51 kVIko7L8kAQ8Q6VhanA8AUCu bGQg LcurdCJQoV4yeyzjl4bxlnke YmQkKEWaUZi6TGg1WNIzjIam TwHeED39KLV1DFYjwkJnU0Gv LWFs lYrmYpA0c6M7Sv5YB5UVUptq K0DPUKGPQIecvIU+RJ51au22 U9SxOfotXbr0COWzSIU8zOW5 aD0n GTZhPQuzr3G1xRY1N9BvlrYw wi1pu4oeZMVnBPkvE00rfIXv a3G2QURtyZF8MGNynAysTsSd aG93 Oyc+OKHqsZram4LgIapvf0is x7rovIs2JfuhABNmthDqyUdg MZW0h1EdGs1eLVWgxEH9eJN1 aD0i ZgNjRvA0GRlcC710TxDcdRRf DtmaC32uB9ZeoBP+PHRyPjx0 MMQdbCfaGC6cE0MiXXBefzxk bGVm qBwyRN2mUADpkaepOFOmkH8d TBPlV0z8IaDeAsW9GSxeW1Uu NUEjgcgvEc32sF8sKiCkKqC2 MGlu O5CovbS6DDAgdMGwOKfbTUC9 Q74wx7K1GYJmZQVuMDK4kQR0 mY7gcMsppmvgqHBriEocavSm dGlj KBkbEZpjJ135FMBscSchNwPi ZGluZyBEYXRlOiAgMDYvMTAv MjAyNTwvdGQ+WDOkBQH8hOuh PSAn xQEiQZweYh3izZlvlLikQR0v LIEwohtpNXGxkQ7xFUIzeZKf kTkvRQ9mFEZlqucjh978XgEt MHB0 QBAtwVHnX0IhhO0yXvKdGUKk COMwQ1VemPIuTZhrN047NXby PwU3SFLiypFxC3EqKNHgkCci OiB0 d2N4Ep3Sv6CvsnqdG4TydLVa CnMzPuevFEq5N0MmHlgudQE+ GK08VGEnJD34MMs7HCY0kUho PSdi OFGdY1VinA4aKeSbGVJsUQPv Oyc+PHRhYmxlIHdpZHRoPScx IHLtRiRrjOieKY2sPx2rGHXg LWNv fDqxlHEqXrPjc3gdDSCgWPvg GC0dgPfrK3VbxFV4CBKlp4o8 Av67R04iC2NcwUP+PGNvbCB3 aWR0 dP4oAbGxTkQ0SBkeY456QgNm eKWzWkswm4feb3cxqFt1OlW2 JTDtniDjfVfiRYO8y3FrMu87 Y29s IHdpZHRoPSIxNSUiIHZhbGln ha3xpE0wNk3+HQJlhCY2xJK4 dI8zYpLfLiB5PEesK987SpWq cCIv Zbyii4nds1ejdXw7OvBmKCXw guZhpYpbYOI7s5HsAw19R0Hb mBaen3LzGmd5of36fCKyh7D2 bGU9 X4YaMORpkbtwmPQlbByrOU6b GBSalbjeGEKofQ6dGODqH7h6 JyDxArK5QBzqK5BnhuX8PFTo bGQg VTGgtMBMdH6olxbii3lziibf LoVhVOSlLFb3SQs0WWWnmZoq OmZqWFY1VeX9JKV6pNRfeP9j bGln eiucoB7lFvw+LGD6eWNgkKXO HH6vFwbwpYO+MLDkNVC3vKdo VLfyDZIaiV7nFRCuY2g3IgAj LjA1 ZSwwQ2GnluU7CMPfrIHbKDHn jFXOnY6bqdirs4picxxhRlZz GGYzZHa1QTp6MDDsjBlsIoPe ZWZ0 VnP8UHO7eBGytT0ttGwzmbtc wM1gEee+OpdevKsoONY9VKs8 H0SzOtr9GHQtsHfnVC0ogGWe ZGlu Hx3mgBafhIofKK0qVHNbvfjk m561XjWeq3ziYVJcsZTaOAyt MZB8D10dn3Z5QLSpSWJoTKO5 dGV4 fY2kwNwnweyfrFTpcKwdzbLm nLdyRAmeNKvyT337NXLaaFcn CvGdQXt8H0XgKcv7CJZjfDls ZT0n oEYcJLomZr2tmZgeeDbgVJ0h URLziwscz053CsQfz8anUTRj iNMuAJosTPN3S79cv9U0VJSg MDAw WPP0mLL7uY0ibRqqwikbtAAq nMiqkaEcuFtrIYgcDCwhV668 STAwyIawMeHouYu5A5JlAww1 ZCBz yJixGJ3xwJUbXZerOy9bjXiq lAzvWP3mLAMgslbdo471MsLb a9mzBHKciROnAGtfNLL3Q00n b3I6 GJTaTCYqPNN8oOG9qW3zrGtx bjogbGVmdDsgdmVydGljYWwt DNdcF657NSPslYujZpDjeRpn bnQg MIpaADf8R0VsPlqlePI+PC90 HHHkKF13fDQuyZUie8zyuKe6 XiKtGZDbAJC5jLgpZTibw7Ma ZXIt R97meXUwe4Q5RRYpeLnlpVWe ZvYprAO4uN5rRXtlfdmnc9tp bmquJqxps5rqtq86zQ32B57v IHdp SEZpXSPwHZToZMBdkUenmc1k uC0fCp8+KJQnuYA1xLF7eJ3s LQVuEdS5JMezN741VpUmbDSj Pjxj a4dsc1pniKk0NtQ6KCWnpqOz uOsfGPD4j4AiTt09P43rIUce CTUzCJPjYRJbYHRnhPcvlc3l dG9w Ii8+MAShvGC4tOY1qL0iGsPp QiQ7PUybR725ZfVisXVuEspu K37mR9TkeMT+YTWeSpb4WAFm dHls HP4dlYSzKWceIr4nKFZ2ZnOu OkIcQWegZ4IeCOCfstcgiiny vXO5RGGqQCCrcB73Bg1jkHlv MTBw wKLDpW3lkzcqw6xwgjgjXzFx MEVqOUq8VYj8UWAdvAvbHtIr QBR4UvL8FYS6kVVyiZ6ybEqt bjog gG0yY5CwQLZlbanjKs12pO2q NiCiMtC4ZLcaJry+T0IYG2fK ECDFWBNaHN4HZrkULvvMCJ29 ZD48 lSKxr4O2uYP0F8WiBQWdqtjg oykxzQI2PMKzFWZcxP80hFGo KZrlVh4ml3X0c779APNfVWQa aW47 Ai1qdPqwWPOcsIUVkX2gkohp i8mkucxzWmBhPDLhUCq4PCm3 YKRtlEktYrJyHEK4CwD7YFN2 aWNh cO0bkTotylukiX4cLye+MTAv GWVnFNe3LXnmhWI+PHRkIHN0 lCjyRSbpBPSvnI9lLMGpF7l4 OiAw YtQ5YYxzR7EsPSKuhphqJn31 vV4eZyBvApX3PMhbE0OubpB4 MKNprVSxCAcxAPI6V27ml3O4 ICMw RMGuIGU2oJF4fF8apYnyeiui bGVmdDsgdmVydGljYWwtYWxp F749RYWrpCjuSbp7JGarSQZt PC90 NG73kJFtx1R3vIL1K2ZbVQRw ojuyskkdaHO1NZMgRELlnE65 qWMsQCoqIm9fn2Z6j792ZSXc MDUw bW20Af8uiIrvGDOllSCNbK6b hkxbv1kpadokJwWgFGIjSHf7 ARn0PKJszIjpEuRnCHP9GdI3 ZXJ0 iBJwhI6liGlesjlabS2cJqe+ UkMLXLpYHJ42AF00lKHyg4M6 vKK8C9NiJZVxbnextztufLG6 IDAu OPAgyM26aCHpZLknZs7ae1P5 f302ZBMeRIAzzN85Tf0unNvk LIEyjEWNjE0qajtcy6aynfin IzAw ZXRgOAy2QJq7ZNAmuRjwSjOi CMB2EjY0PQI8oDXfnD2raFkq uxblvK8pKut+C5P4K9CjUmqm dHI+ OE41SCMyAF71jWLtcNJkn0yo aIv8AsHtYLLgKNL6yNyiXYne g0GwRKOgO11peKDyp9F0OHEg bGxh iOGqJgUkyUJ4yD8qJIvbbidl c3pidugiCfpei1hvxe05oL23 Q25kGNjoEBUjVXXhTEZjVYCg bGln gc8lmW6xMj4+EYZnxFL7lBW5 dE9qXjDfUhE4YEaiL243YgKr cCPeTmojm4zim5nglEz8HxFj JSIg emKucCazRJQ6j8UzNm31Y97k IHdpZHRoPSIyMCUiIHZhbGln it6fuW3aVx9+UC2ic0tjbz86 cD48 dHI+EUWgICN3sJzrHPadPUFs fM3yTOfnBaJ1LAJbVgDeuG92 uKEjBGjuBy2feVzqkJejMI9d NTBp jzrth227DfIrj2dpCRHnvKXw UKumTTP1W64nn1O9WBKlZFQy GFU9zTN0lP8ehJzdsftthKNg dDsg icYlxWyjJNpzPOccF513UMWi wCgaDrJopQUvM2rhssMEVV5x OjwvdGQ+RTTmKBA0jGniNGmt YWRk sB1jBGIsY4y2BwKqQrP0ECon E0AwoqJ3WDNgnKDmHXMqlLPB kC2dghyrr7eroypyFiFgPUUh MDt0 DLv1EPMcgUybKmRkWEX5FkT5 AQJ2oPWopC6uhVyofvjnbG5q Oyc+RklOOjwvdGQ+PHRkIHN0 eWxl UPcrFGUzaQ0aDSRpN8z3ArWq HpU7ETddK7UwvvQ5DZWgwNOw ZNTkjGLTxC7xhysqm5fzadai IzAw NQJjWIa6MCb1GAAfoInhJzLg BTR8TfH1RWE8kTNubH2smIde waaneQ1ySpi+TVJOOjwvdGQ+ PHRk GCY4hZrlEPjwSLUymI6bZLRm O4e6BaHoEiJ3YOupE9KgqjV2 YKVnmGMcFGAmhCJEoF0jmrfn b2xv plowEtHdZBAsGYo7MEa0MRTk lGlvYmRmRQT5HlM4LDY9wCYp oR5cvUqgblptpP0fAdi+UGF5 ZXI6 DI06BS39N3QxRqtxkZYcwEL+ PHRhYmxlIHdpZHRoPScxMDAl NeOgrJvsHM5vCd8iQXZaYUMg bGxh cHN (more content not included)... [facility] Coding Summary HTMLBase 64 JkvjttfbPWn3aFs+PGhlYWQ+ KM2VSOCmJ34otPKmqI9tA5BE TElOSywgQVBQTElOSyIgbmFt CR1aiKRdFBJx IC8+MG9mZPJiIbdnlBMdm9B0 fWH8N86ptm6fJUxveAB2GKJe YlZymylst3qseWh1RAleKpfa OyBt RNSklD98FOZ1oG27Bb92yGId uQKdo6uwrBk4EcJzQPQlEOU7 gNlvVEoax7EkJRNfY46yvCKq c2U6 CPXnjYwldZGzAhOddHP2qX6n GSfonpaoi8wwqzejFhp3fi28 tRXux6S4pEL3F2RkguI5YAGy bGQg RsqhiCGKoZ8mjtibe1uddqhq XpZdCWUoKMg0YYg8JRKcvMxo InXwKR45PYM1SPOquuCtP4Dm LWFs oNqbYqS4y7B5Pw6NP5IZKayy S7MNHOHXSPenxPI+UI66px23 Z3SrOujqTkr6DENiBCW3bED0 aD0n SKTiCFmtf1F0iSZ5H7UeqnBe vy4tj7ltSJPyJVhoU72zvMFu r7U7NADaxTW4XOKtbBcyLpAc aG93 Oyc+ZULnqNhxw9YyCidvg9du b5wwsXq2CrooQFFqpeCgeGwp NNJ3r5DtDe2uIIZvhQL2vKY6 aD0i JmMzMsT3XNcuO194FoRamZNm BnszS84rS6EfxBY+PHRyPjx0 MEZfzPqvFB9eB9VpGWNkdrzn bGVm lZllIF2bTTXpjeutTPCtzF5i EIJeM9n4CrIkRbI6NMvkC1Wc ZEQvttgtVa65jP6sHtBvAeV1 MGlu E5LiprV8HGLzeEOgHOckDBI8 V64uw8G2LJVmJKIoYIY8sWY0 jP5ouFpwjsbmhFPavIqpipPq dGlj KMupRXnjV508QWHpqHehSoZi ZGluZyBEYXRlOiAgMDYvMTAv MjAyNTwvdGQ+VUYjETB0vZlu PSAn nGPsTUcpAv2iyEimzYnvHU5k GYSqpjthOSDleS2tZHXkrFKa yYvgVA0fMBKdsroxn869AjGg MHB0 ODOfbWMsI5MnuP5tAgZaIPOi NVZiA5FlzQBkJCjmN342AQmk CvU3MBZcunOuS3QhKNDviCqi OiB0 e0S7Ri9Ze4VpmdekQ2ZunNJv WaHdXgarXEy2A1JwEmbpzZM+ CP12MQAoAE37LYm8UZT4uNvr PSdi WYEpT1IqyR9hQmYuNJKsLVTn Oyc+PHRhYmxlIHdpZHRoPScx LJYbBsJvgDlzVZ9qNu7iMTBu LWNv zFqjtERxNvHkj0upLOWeKTve PE5xpJvjQ0GbbFU6JTWjn0u5 Vp28C63pM6HysPM+PGNvbCB3 aWR0 eN3kNzCoSyW0VFznF426EgBc zVVnAddvr6rlg5mfzCu2LaB4 BFKskvQulKomSJI5i0KmYr58 Y29s IHdpZHRoPSIxNSUiIHZhbGln cc5llQ3jPe4+CZRcmJN5vQP0 eW2iGeSaRaI0WNkpX409DrLz cCIv Fhjej1vjz6hdeYy4MdMxXCAs mhGxdMxtVBN4k3RxDj31O9Cu mQpdf5SaNmt9ub78qHFda9Y9 bGU9 R9UkHFFbpasnaLVpsDdjPC5l ANTxfeezNOXdgW1tAFWlO8u2 NuYcUoR3BKwhJ7EcnrF1KJYg bGQg OJOeoQWRwR3xpvola6gcjvmc GrQrPEWpKDl8FRz1YHAdaSid MdCnIUL4NsN8RLE9dZPgxN6p bGln lxlqsO5dLhk+GNO4jKYdgUXU XD2cRpzicQL+OLZeEIA6jXpg ZBeyRHXliC5wYNHaZ1c3EdMv LjA1 QLauX5HhbzO0PUEbtCXrBILv uBJMsM3qzzgeg2lupsotFhLb KXGtHXo1FXv6NBEjwSeqZgTg ZWZ0 TvB1IEM7iQQhzA6vvBishzlt xY8bHnb+RjfxiHccTIX7TKo0 E9IdDen8MZAxaQdjSK0boADz ZGlu Mc6saYyxvNxdMI2kPKEnzwuy h504TsJxw1kzUKBkuKRvTNfh OXM3V70cx8S8LGOsIMJzIVO3 dGV4 zU9iqIdgqibpzWRtyVepruMb bOcbRQaeWQqtO088ONEpcQmm KfDqZKq8W6DxNqa3TTXzjFum ZT0n qVAyCBaeCs5nwKhdiCimXW8r TGGnnhekk591RwRsh4xuMFTg eSPeJVsdYNO7J33hw3L5LWGk MDAw LYP5oOG6qZ1htXqzgwdgdIHm kWbhsnIztWjnQZsoTSxuE178 FHNnwIicIcYuyIi8V7XuAra5 ZCBz xZsqHN6rhAQgLIuiVy9jqBul xSnxMU6fYBTzfwrnu760ItTl d6qaDDJjpNZvXMliKXJ2L15g b3I6 FUCcFQEzRNJ1rGO1cL2chFfv bjogbGVmdDsgdmVydGljYWwt GCfdV381NTIuiJwePjWriIyu bnQg JDwrJXh5P4RoXorupQD+PC90 GPJfHO21dJZiuOEof0zizVv1 RsKlOBXsRGH8aChhZUjdc0Dc ZXIt B73vjUIkk7F7YMYmrGpdhLXz OlPqiHI8fQ0mLSfesetmm0ld kifcNtepi9wlia44pX91P20f IHdp JTApAVLsKNMvUKVfwCnoph1z zE0jLe4+HLWtoIX5eGS8kD1x CAZaQiK3FIkeM706ZcRufZFp Pjxj w6rpt6vtcCz4IlV6NOXdesCs uUgiLXR2a0IqCb45G66hPNki PSZhOHPgFVKkJPPelPacwa0y dG9w Ii8+DNRggGN3nRJ8mU1eEuFh VbL9JBzfC494KoNccTRzHjtc D47dM0PmvHP+CQMxVeg8WYOf dHls KI7kzFQtOOmoIy9wMQI0BpLv MeDsCQbrF9GlZTDcweolrria cGT0SJTtLYNumL58Bf7gmUav MTBw wRHNzN3whxvou7ymabpnDcDi PVIqDFc7WDy2QTYhkPusQwXr SOU9XaV1GUK1iOCwcA1cfSgj bjog bL7nI3YxTFEdknhiDk24fT2i GhEwFkP4SNbvHtn+J6PBD0qQ NAZNUNXiBV4WMrcKYclKJU59 ZD48 mMHhy3F3jLL7W4McVCQwdige ibuheLL6TFWbAMOjzT90mAFd UTbzIw3tx4M0q284WSIcKBKy aW47 Me5qwEpzMSFsmAZScA3zbqyz q8dfheoxOvVkBQQfYRr2GLo2 ZBCekQmnLsZtPHG0EzX7PQR1 aWNh bX4wnAyletktrN1cUsx+MTAv PFSyWZd3DUgwzNZ+PHRkIHN0 lTqbPKjqAOUbrZ5aTHUhS9t7 OiAw AwB6KKckP1PuZKLmcafsRl18 bB9hHmTkFyS6JSijO1ZcifH6 AURocZQhNIccZPR5W16tf1F4 ICMw SGUwESM1wAL5eD3uvZlrovhs bGVmdDsgdmVydGljYWwtYWxp V854SPFykRxpOuh3GLkpATIp PC90 HA20pLUmn4O7lQA2I2IeQAJy pfocyxpruQB6THOhRGTfaY62 uFEoCGcbIx6oi6Z3k523GNVn MDUw aG90Vt7sbMabGUFpvVEAbR8f drwka4jcpvjiSbZeTWVjSMw8 XRf9UGVrhYcwMbSpIOW4UvE9 ZXJ0 xCGarI4ktKnggeccxL2iGvw+ MsEOMBqARX42ET59cXWdu0H5 vYO2S1CiCQZorhaffuwpiSN0 IDAu OZVwnG32sGZnHKfpSv5ws3H3 k668PCVqQAEaeC94El8vxFkp LWBbzPLIuH6yiogyi5phoiuc IzAw WCDrTGn5ROh3GWNuiIutJxHu FBO4DdR6EYL2gLWzqH6veYey pmmppB0fFgy+L6B7Y5WyZeni dHI+ EK55NOAhZM07eRPtxGRgn7wm qAk7PqAuOYOuTIW3pQleMLnr s3OkTYNtP84boSDzt4W8QOEp bGxh iSEkPxOgyDZ9aP9gDUrxurcy g1rcktkxIyrwz2kjph17vN64 F32oDRuiYQZqOGYtSIGqPEHn bGln va9rgV0tLm6+AFUvbFJ4eXA6 eO5dTjTjAdU1RUjyY249HzWi uEPiYxdxc8ucc8dqxWk9MxSm JSIg qhAyjRdzTKF2g4GkOe37F44g IHdpZHRoPSIyMCUiIHZhbGln ij4pwR2oWe4+DR5iy5gige23 cD48 dHI+CZIuUTN1yUzwTOejIXOd mM8pHBfcDyD0ICKdSpYclO74 gUXmWTkmSt4mfGmrvOeuPV2r NTBp sawto813MmYzb8qmEGZavZPb NGojZKV1G07xh8T1YOJiUBMb DHX6bTD3tV8vnWutnbuunVXn dDsg mnFzpTivWWcwSLtdM713JINv vLbkPpUrjSKwL6lfhkAHHL2f OjwvdGQ+GEZoWKX8iEhcCSks YWRk cO4uTIVrO7n4NsQiXjJ7YLpe Y1RihoV4RLXokWLkLESycYNM oV3uuijgb0fyrwzpAfEbDRXu MDt0 FMe3OQKqbVvjBvCdRKG8GkX9 VAQ0jQRssL5ghLirwbehwI2s Oyc+RklOOjwvdGQ+PHRkIHN0 eWxl INmhHTBcxZ8nTPMcH0z7SuSw RzU1URsiS9UsypW9CGJubGBs TTPifPEDkF9xovzpv0bphffm IzAw CBSwPSi2GXg5XPXyoZwoEnLi NXZ5YsC5LRE1yNUxaS6vbQry qqrfvS3tCei+TVJOOjwvdGQ+ PHRk BOX6rTvaWJrfUWXcuU0hTFIb I4t4DqBdXnB7XPxhS5EuhtC2 RPAizTGnKZRuqZFZmL1eyzvx b2xv oozdSoFmVBWdZDi5FRa3YEMf uItaQjQsHXG6PmM7ZUX1aRId jU1mxEwykogryK6wAmu+UGF5 ZXI6 YP61PL74O5MoIrrgrMGkqQE+ PHRhYmxlIHdpZHRoPScxMDAl KiNkiOgeTU3cZd2pFCSfHNXe bGxh cHN (more content not included)... [facility] Coding Summaryon 11-01-2024 Coding Summary HTMLBase 64 KnuovsyhPBi6iGo+PGhlYWQ+ YI6HDIAiE39jbBKqdT7hM5JU TElOSywgQVBQTElOSyIgbmFt RW6edQXvUCKh IC8+PF4mOGCuZatrgDCqz8S0 qPY7R06cot7iFFhmhOA2PZRi BwZraaqtg6cqsKf5DFdxLuff OyBt RRQczX15HFN7tY10On99hUNv gDJqi7vshLe3ChFnXPEnVBO6 uWjoHFyhy5VlUBFoA81nuFFt c2U6 JOCfvYbjpHQuPqWyrXN6fD2i POgaxblae9rpdchjRca0pc28 qOSqy1W2fJV0P2KpueF2OFJf bGQg MmxeiYWMfZ9ppokoe3thngwr FxWfYDWkNAl2SVe8YXCeoRlj CcNtDI92FWE6OLCriwDxW1Nj LWFs vCkaUwC9w2J0Et4NK9CSYetw W1XAAOYKLSqsnUK+YN17gq19 M1FeXcfdZuq8HWKrMWQ4zAE9 aD0n STSoMSypa1C8qNR4P2MgbeVa ps5uq1jwVZVyKEckI61ylSOc c0M2HXTglNS3ZKGspQljFwRh aG93 Oyc+LWKfrMezt1WpBbswl9gy e5qinOn7XbfwVOIfoaBefOfm UXD9m0OcSv1zZGVnmRE0qUK1 aD0i HjTaIcS6AMtnU633MtLaqWIa LxkcD23yN4PmrCS+PHRyPjx0 OUWqyMtzVN3pI5DmHYTilama bGVm rJygCA0cGZFyevnyPKEkwT1y XSGmV2y8WcRrCkZ3VQxmE5Ea LKWcjempLa09dA8aHnTsViY6 MGlu Q3HlrvK9STVdlBVrSLbdKSK8 B27xy4Y6AHDgMCDqSOM5sCK2 gA1sqXiamwbolNPjoEapglEs dGlj LNjdADqrE121WLPffEvsYiTm ZGluZyBEYXRlOiAgMDYvMDkv MjAyNTwvdGQ+WUIfOVI3mMxd PSAn rEFaCTasLj8lvAzjdZarZN8l YGHldgpbQJOfwH4nDEPgjWGv pOeaEO1jTTQwbhtoy915QkPb MHB0 WXYigEKmN6QgjE7yHlGuOQJs JDCfU0ZvyPCiADhaS721CEtp DsB5NMPertZhM3HdZTGbkTcw OiB0 b1P4Ao6Hy6WamewqV1MqjYVw HoJsXcgiVFb6P7JsEiorrUO+ MP73KXDqPX32RUl0AXE7qJyl PSdi ZHPeZ8QoeV7uImIrZJHdAWAa Oyc+PHRhYmxlIHdpZHRoPScx VITnDgGviYcoCD1kCf2hPAYv LWNv vXouyJTuJvHvc6gvWOTgKApm JG5ruLwpB8AmaKY1RRNue4o3 Dq79C77rP9UdcNB+PGNvbCB3 aWR0 aH0gIoCaQcK6BNtgD148LnWz vWBcCoryf3dvw8mkkJh5IlB5 DZSqiuEljQvfWZJ6s6ClKp94 Y29s IHdpZHRoPSIxNSUiIHZhbGln hh4mwQ0hKj9+TZXycZL8uMA7 pT6lXaVbCpF5VYscR840TqMz cCIv Emdux9ucw7ymbYm7VuVyTGIs luHzgUqfRYH2i1YlEa99D6Pb dJsdg0IuSnh6uz46hWDzk7U1 bGU9 P3AgQNMsqsjnwPSlbFmeXI1f KYXvxwxkUNTbgY5yQHBeO7r8 ZvUnYxM9DCenC4LtwtK7FYRo bGQg IKJlcEHRtX1smmrgr8laulnl UdVqDJIgDSe0RHx3KAKtaZvj LpEgEPS8JvD2TJK5hDRrqC4y bGln ixrmnC9xJzd+EPO4dJSezFYP XQ9hPhgshLT+DVSoZFR9gJyf ATrlXKAblG9vRWWgD2c1CuFh LjA1 SDmlM6LgrwS9GPRjnTRjDLSv oOZFjS7myyxfh8kusvtuFaCa MGEyDEh0QGy1ZMKxqCwbLmQr ZWZ0 VoG3VCV5tCUhiE3mpPgohups lV6zZbv+HmujhQjdPQN1OPh8 S4LtNqy0BKXyyOxgLR3feXDl ZGlu Zo3tzPtqnKreNU1aUWAyoyzg p697TyLve1vkJKOjzBPyMTrx HSM4O94ho9N2FIMeVBVeDNJ1 dGV4 wA6foHgioxebnREcbGchzxOb pNxcXXhaOHiuF346CRXhqVor JrYsHZb5J5SgJup1FZXnkByk ZT0n pWIqYBxlZw0ejVqklHtqZR5x VWBiatixw663NvOqz5ysGHOh vEMvYLskWHY2A46rb7J3VFZy MDAw WTP0lCY8gF6wnIgvbhwgyDVv rOdhypUunKuuSIfpEGhtI716 OXKzcJhzFyQbzWm0O5XiNwv8 ZCBz oVdoOV9tgRSePZrhTt6lpMpq oQmwFC2oRCDgzntod978MtGm k8axTWAdnHWfSWpaXVA4D18l b3I6 VPKpYJTwCKC1jJR3aC7iiPvt bjogbGVmdDsgdmVydGljYWwt RLbdR683RLGhgUwqOyDdmDoc bnQg NFwgMZu5P0MdPjgsrXU+PC90 AHXhAH20lZHuuGDmk9wrwOc6 AbKyITIzINP8uXcyOPmob2Yr ZXIt V15chDTkj9B6VQRudXjeeCNy FsHepQF3uI1uXAbyetpaq7oy unsxBrlut9negh60kM60O96v IHdp BKUwIQSyLLUaIHUswMrhtv6n eH0eNc9+VWPwxHJ6vVP4nE5t QGHoLnL9TWyrL766CbImsJLq Pjxj l5nfz7xntZb6FoI3ZVXrsxHq iIeqIWO1j1OjJs79J59vOVek CPPcVOBtROWcWZQodVszhg2s dG9w Ii8+DNGqqSD7iEI6kR6iPaCk IbE4STcfQ745NiNnrXTpOdhi M46eZ2BrmYF+HOZtBjk1FAWx dHls FA6knGDyLFzeTn5jIAY2ZdMe LgEkIVxuV9EbYQAunwslklcs iHB6ZIWkQNSpvL52Uk0sqTep MTBw jMAXmR1qxkklk6ddqzjuBhXk NMLjGMc9EDa0AOKoeBxwTkJg LIK9TjT4EOR4eBChyU1mcMnl bjog iU5fD1XoFIBpbostNe10uC4o XsJePaO1LIhxRub+Q2MGL1cZ JHCIHNGqGU6DUxbXYxmHQP04 ZD48 iNVer6G4cJK3H7YuHWBmvrug rjvldHJ2VFIuAYBnnA48rTZr HCnaGi3ne9M8u483USZwBQNr aW47 Ml4wtSflSAUdhLXHfF7qjsbt g7zjbdbpKmBhWNQwVNq2BLq4 GHZumBauMeGbHJK5VsG4CAH9 aWNh dO8qsRemnkimrA8tGro+MTAv OBZaWSu7AVvnlDR+PHRkIHN0 lDjvMDscDRBruA4iOFXpZ1n4 OiAw ThZ1JPelM4WvEGLyzelwEs79 tR5cEdBsWhQ4RWemP8XbqtU8 RWDlmQIbKRlbQFR9Z17zl3Q0 ICMw ZTVcGVO0gEW8oE4enLovmqwn bGVmdDsgdmVydGljYWwtYWxp F434UMAjrVxnCfk2POkvVEUb PC90 VB92bVUgn4I3rUD2N7FpWVQf itgascfprLL4REBuVXEjmB70 sLXlUZnvYn6ci4T5r627MUDq MDUw vU62Vt9vcJmwYXChnELUoU2j sxqrt8ngdsjsCwLcUATwBPj3 RGq3POVpvBqgRtYzDGE8VlK8 ZXJ0 lZRgsM1ymBplcixltI1iIsd+ LjDPHKxYWB03US11bRJrd9N2 bDI9E6RaQNMxhtzvyvxfoNF9 IDAu LSRzzP30tGKlUVeuAj0qj4J0 x966SYUbPUUhcF67Uy8rvTdd OJHgsIENvM9ktzlrm8pempyi IzAw WBEqXPx9UNr1XQDpvQsaUeFu YGF7TrH6XZC6aXFbnE1lsOuy eqcukC2rWxa+G3X6F8GePtaj dHI+ JD96UZNpZU19tHOobBPrv9py gEm3YsDyYSKuJJS4tXimHTyn n5MhARHdU01zzJGld5G3OXBg bGxh iETzSqFhoAI5dH6sXFhuceer o2yhxscyWpcyk9zfze03hZ33 D89aLEowHBDqEQReLBKoNRNf bGln xt9hqL0sMg9+SAAexSN9gLG8 sD5xWdAxRdO4JFwxP772RnEb rIGyJgjcm8lzj1bnnMx5QlPp JSIg ccOhuCrmOJA8w3QmPu29S67t IHdpZHRoPSIyMCUiIHZhbGln gy7orM6jIr7+BX6cr6cyvd60 cD48 dHI+BKLxMOD3nQwnJRvbRJYi lI9xPBgwKbJ3PFYpEuNyoY63 oDOvRNycUa9xkKzpuCgoDM9p NTBp iveoa469EmRil8xaJSBuuCCj RXtzJUG8P56pw9G3XGStQNNz YTL9wDK5uU7doBkvpsvxtKLu dDsg nrXmtLuhZEszSTfcJ579FDEt rLprXpPnsOLtM2snadVCHX0c OjwvdGQ+XUGbIWW0bHlnAAyw YWRk kZ4kGOCmR4o2PcZhNdG5HXzo C1PdlvQ9KHLlxQSeYNQwjFQF gD6unsywy8jsgzjyVjWoACSm MDt0 ZRj4FEDmnQqiVhNnGJG2ItA4 YVO5nHUuzG2vfKiqvchfkU3h Oyc+RklOOjwvdGQ+PHRkIHN0 eWxl IQpdZGLpnK8qWFGxH9g3MbJj AjI7MAqjS6ZgooU8HXYzkDJz RHCljTNZmT6kygbyo9dimmgv IzAw QNDpIUk3NEw9FLDmwKrhZmYt JEN0OkE1AWC8yVPqdU8qsVqc gdtkvA2pZyn+TVJOOjwvdGQ+ PHRk GNH5lHafNEimUTBmqV6yDOEp A1m5OqQtAfB6TUjnW9UvycF9 PTQbvBXyPTQxaFELjO3drapm b2xv vwbkCcXjBNTuPOw2JZu5FEUo hYhwHjZyYCK7NfN2JPF1hGYq jE0svTypacazqB2jHcp+UGF5 ZXI6 PQ48UH19Z0PxVmlmqHReuAN+ PHRhYmxlIHdpZHRoPScxMDAl RxGkeWltUT1aGs9yJFYyZMXs bGxh cHN (more content not included)... [facility] Coding Summary HTMLBase 64 DelxjqvsRZc2aAr+PGhlYWQ+ TB5LZSPxU11czSLcrE5fU3EE TElOSywgQVBQTElOSyIgbmFt YE0riFCbGEYe IC8+LL0pBWUrHhhpwYUkz0D5 nFR5G48kdi5zKOkciXM2YTTs VrBcsweou0esvTm7CAbhSmrm OyBt MSGjdL80CTW3vH03Tg43aBOm fSHce4kwdDs8XmNnSLVlBIT4 zCjsYGgzq6QhJNHaE34gnZHj c2U6 YNPesCvgjYIfGfEbeIB8rB9l KDygzxcpu9odxmhmMtx4cv94 zPQcx5Z1lAQ6S8ZhbvC2NOLh bGQg UkfaeYQVbI3jrnoip5pearne VrOcSFEmCJp7NRo4IWYdhYkz NpCgJB80UIE3VDYygpJjQ8Dd LWFs cAvhQbI1e8A8Zk2CS2MKCevb C0FJSMSEQCirxWC+WZ17pa70 R8VrEmjgLep8ASYyPCZ5fSU0 aD0n TDJsSJudp1X3aUZ3H1JrsuWs og6ha0hfAACzBCwaQ95onZEq v9W5GFAnyUW8CJOxeZdzBiUf aG93 Oyc+TLVfhAcrk3YyNuorm0ad d8rhuUl5QlmqWKTwnaYywZhq QMQ6j9ZbIt8cSJYkmIO6mVM9 aD0i QiVaFjJ2CXkuL438TuPbyJOd RxgxC45tK0UbfPM+PHRyPjx0 AYUtcQxiNI1dG6RyKSEghwrw bGVm bAsuTM7bPHPlvdwxWJKryF9z VQQpI9c9BgTwOrI5RAqhZ7Ei XXAmnrofWr54jY4zUyIeTeP2 MGlu L3EisqS3TEKeeIIsQGdsZEB5 A43tl3W0ARMcWETxOXE4lGL3 yQ7oeCjzhvbplJHzeFnkciGe dGlj CCiqFSptW373RNJxjObtIuAu ZGluZyBEYXRlOiAgMDYvMDkv MjAyNTwvdGQ+MRUuJVN4qGfb PSAn vPZxLQgoPz8jfTyzxNruUX1y MLZywseqOPMloF3fZGPmeXBo hGhcMI3lHCEflnkpz262CsUe MHB0 GKGidQFpV7EseM9mKtBaLMMo RGUlF3EujFKdJNhkK714MQic RtJ0GXDglkPcI6XfXSLbvYtw OiB0 y1E6Sa2Pd0WxptawD3LtgKUz ApJnZvldJQi8E7YgGcfwxHZ+ AU19LOIqQZ09XJo0FIO6gMiu PSdi DYReN3QjhA6zXbXlGASeMWYn Oyc+PHRhYmxlIHdpZHRoPScx SVBlUfAxgHnrSG7aQx9wHDDc LWNv fOfrjBBaKuZhh1rcWYImMDtt FR2ktSraS4QznBW3CLDzy4e3 Le75S37wM8MovYA+PGNvbCB3 aWR0 lA2iTxYsYdF5QTzpA888NbTb dFGlZwpvq9gss8uulNr8NdX3 SMErhjWxnTazESE3t6BbJe26 Y29s IHdpZHRoPSIxNSUiIHZhbGln xx0dpB5jMo6+KHZieBD1fFD3 wU7qCeEbLrT8BTrbS632DpNx cCIv Dvjvi7gba6jbfOr7VnAkFXEt mbCgjAlbZDS3v0VzMn88L7Hg mIxds1PwCsl6qp55qAXpn8U2 bGU9 Y7QhTEQfxomxsJCejUieUS1z WOCefducHLZdkJ3zFLXeO3e3 PuWfZhY7XFmqL0SjjbV2XNUg bGQg FIWakHFDyO8hhzeze8fiksnm FwUpFIDeWEf8TDi6UUSdxKqn RdReYHT6ElE7TWB3eTGfyV7u bGln aaqytD7bDgi+JPJ0dOAfbONL VV4jXunztMN+USOeJOE2xXsy KLyqZNJsoV9iZCHsT4d5DqLf LjA1 VNdtQ4VyrcK0TTPhpRAzWKQh qRBWnC4aaqboj9ebleyyDaYf HTRqXCr5GGk5CWXjvTycZbHv ZWZ0 VaZ9ZCC3wCJtoR5icRzyebjd vB9oKbd+SylxnFeqXZP4MPx9 V4LyUcw2RWQzdKpkDC5alWMs ZGlu Ww8omWefpDvxNK0aCRBihsuf t779PbYvu9ilAKIfqGJxTIbw QWJ3Z85sx1Y6ISLvVSQvSJY3 dGV4 sZ7vpEjnmzevpLAapZatbpBm tWubEMyqSNltK408XVBxcNud BvEgSJw2E4MuCxl3CVXveHoi ZT0n hZNjIOooLn6snQljwOqqSG0j FZUpsgqwz694OcFwk3ueFAVd yBYzLCpxIFX7Y83zw0E1GEIz MDAw UMN2bHR4dL3chMtbhqtltHHd bCacboYvoVagUNtwXRzeH136 MGRqsUksNgMubVn6Z9LtCpo4 ZCBz sGupIB9kwFHxIWioSr2crQbb hIaeJG7hIJPlxdmfk090WpUp d9zfLWQouOIyEKhbXLB7W13a b3I6 AOAdMUZtIDP1jBR0aW0qlGwu bjogbGVmdDsgdmVydGljYWwt RPqyU989HEFnfXxnHpResWbk bnQg AVyjQUc2Q1DbDzhfnPR+PC90 QUTrFA40cETldGIsb9xxiUx9 ChTcDLHiSWS6gIonACdgx3Ha ZXIt A78xuTRne6R4SFLiaFtfrDCz BmCakEC7eE7qQKiavmhzc6iv pjtsCqwes5qduz20rA34I50y IHdp UUFzCFSlLJLzUMOsbNlclk3q eX1fSj2+FHDnxKA2rYI4cU5r TVTjWyM9ENqyQ662GqLiaFBm Pjxj p8hts0ptwMb4OaB8WDUxwkHw aBbvOSS1x9LyJg75B92zPXgk LTLcHNKcGCQhHCObqXflps0i dG9w Ii8+ECSyyTZ7zKG6zN4gNzYk LmH8ISazT680RqKfiANvDijm F83wZ6DfjBE+LIZzHog8SOXt dHls TQ0jcUMsRKduAp7bAYF2VaWu FgHzYUjkD1XjBANvmpwzifdf kQI3FYGgLSWbrM45Wf5twImj MTBw hOGDuE3wwbrrm2tyaemcQeJw MNPlTUi8XKo0DZPzmHwfLhTs PHU3FpB2LLZ1nMPgxC6fmYxs bjog sK6lF7QrLUYtpyprWl17eU1f MgKmKsT4SZypTto+I9EHT6iC UBJOSDDrFP4GBglKDshTGW87 ZD48 gTIhg5D4rVX6I4HqWEHdyamw pbnqjUC3WVBrHAQmyK84wUEh ERpzNh6da6Y7k967NMAsTUTe aW47 Md9qdUntOURquYGErI3fffcz v9pqssemFdTmMHRkNNc7EAe4 LCPaiIvqCoMcKIZ5XaA6HYR8 aWNh kY6pjHfynhnukL7gQfy+MTAv OWRzBQn8RLqvyTE+PHRkIHN0 bPpaNSgyPYHmqT5aDWSeD5z7 OiAw JnM4RUqyB8NrILOoqfylUo76 dY4mUyYjIjW8CPovM8FwwkE2 URDugXFsKVgzRUO6U09tn5Y7 ICMw MSHpACZ1jSV3eV0loLzpcusb bGVmdDsgdmVydGljYWwtYWxp M078VUGbfTytDxm9XEgyGZKe PC90 WU42tNRti2Q2vKN4P3EpVDKv kstjuwhkxYH9WXWyYGUhcW82 cJYgUWixKj1vx2O1x103XAFv MDUw gA29Ky1yeBfjBBBgqZOHsK2s rinre1ymnfwdAmGqQAGqRFh7 MKb4NBTmiAixOxSdTDY4NcF2 ZXJ0 uSYuhT9xpSofgfhqjZ2mPhz+ NhOTOOnEXU08QM95lUMaz6J2 qOO5U7TxWLBwwwzeegnbyJV9 IDAu PPTsoF37qSRcOCwtWa4vx2V3 a281WDIzILAovX62Pu0tiGwe ILSsgPNZmW1peamoi9vtkmbo IzAw FOGeHOl2UJy8PBTluKazLrMo THU3VoR5ICJ4oLCycM8fvUeb bxdetO2xYiu+M8J4C8KcPosh dHI+ VP36EWEcJI73bPZonOWin1ja rKv1GxUxXYLuPNS3bWjvPRoa f1QiTZDyJ32upQUqr7M1FWJh bGxh lARmVgGrbMZ3lX0eIVjdmzyk c9emaywaMfilk7ecdi38fQ43 Z95fTNezKODaJSZzPMTsAFWw bGln pu0vgP0qFo8+DTQrlOL4nIM2 fL0iJeUoPsD2SXffR120AyPw rXLwEnfau6clt7xzwIr4VzEs JSIg tgOnwMhsQYT7u0NmYs66D32y IHdpZHRoPSIyMCUiIHZhbGln bv4fpT0uSa6+WP1hv6aczp84 cD48 dHI+DRWzRWH1rJqxJQatNXEt eD1mVAkyVmV4IIRlOpTeuQ68 tXImKVnnJl0stJnsePrjSH1o NTBp fzems591ZwOyq2gqVNDloBNr HJbxFCT0F13ip7E3QIAuEBFj WNX2dHN5xB8nyFzmjhjohLMp dDsg urNkbGyqZBanKMbxS904NMVz cTijDlBogMRaB6gdjrYLGI0f OjwvdGQ+TBFvJVA3nOdhDTlc YWRk vH0pGRAvZ5n8QjQmIhP6IWcb Y2AhuiE8ORTcmAPzLROcgMIA nX8myjqej5afwsyvItKsZWJo MDt0 CEt7TJRubRdxYaIxAHD6XqS8 IYY1eZVnaB0qbOoswlrydS8x Oyc+RklOOjwvdGQ+PHRkIHN0 eWxl THzsYKTqdN7aTSNlA0u3ZjTd TmM3TYctY1ProsU1NPHceJIk VHMrqMONkP8nuaxcc2pqwwux IzAw MWRtDWq9CLf6VJJgtMxjShLj NNW6GsU9WSI7fTEwrD5inSqs tkvalX2uRvd+TVJOOjwvdGQ+ PHRk ZTS5yCtuDDlcNRUcnF3fFRLu A8q9YqMiNgL1PJapO1BfbhH2 ENDqbTVoFQYprIFIvQ4dktlp b2xv abgqFsIjOTDbXDd2TGb9NVCq rYppJoRbZIH9GsY1CCZ1gAWp fS7bdBqgtpsoyT6cUqh+UGF5 ZXI6 KF24AP50Y5YgEfskqKMinDK+ PHRhYmxlIHdpZHRoPScxMDAl OlOqhKqtRH7iPv5vTQGpLUZp bGxh cHN (more content not included)... [facility] US Injection Spider Veinson 10-27-2024 US Injection Spider Veins EXAMINATION: US Injection Spider Veins HISTORY: Varicose veins of bilateral lower extremities with pain The risks and benefits of the procedure were explained at length to the patient and informed written consent was obtained. The procedure was performed under sterile technique. The patient's leg was wrapped with Coban and postprocedural verbal and written instructions provided. Kip Thao RN was present and assisted. SCLEROSANT: 2mL 0.5% Polidocanol. VEIN(S) INJECTED: 38 veins in the right leg. VISUALIZATION: Ultrasound was not used to visualize the sclerosant. ANESTHESIA: Supercooled air. COMPLICATIONS: None. Final Dictated by: Neptali Islas MD Dictated DT/TM: 10/27/24 11:26 Signed (Electronic Signature): Neptali Islas MD 10/27/24 11:26 a Technologist: [facility] US LE Venous Duplex Righton 10-19-2024 LE Venous Duplex Right EXAMINATION: US LE Venous Duplex Right HISTORY: Phlebitis and thrombophlebitis of superficial vessels of right lower extremity COMPARISON: No relevant comparison available. TECHNIQUE: 10/07/24 FINDINGS: Post ablation occlusion of treated right leg varicose veins. There is a 3.7 cm segment of the deep vein thrombus in the distal posterior tibial vein. No residual varicose veins are observed. IMPRESSION: 3.7 cm segment of deep vein thrombus in the distal posterior tibial vein. Final Dictated by: Ananth Valentine MD Dictated DT/TM: 10/19/24 12:54 Signed (Electronic Signature): Ananth Valentine MD 10/19/24 12:56 p Technologist: GENE [facility] Patient Handouton 10-13-2024 Patient Handout Radiology Sclerotherapy, Care After After sclerotherapy, it is common to have swelling, bruising, and soreness. You may also have: ? Some changes to skin color. ? Slight bleeding from where you got your shot (injection site). Follow these instructions at home: The instructions below may help you care for yourself at home. Your health care provider may give you more instructions. If you have questions, ask your health care provider. Injection site care ? Follow instructions from your health care provider about how to take care of your injection site. Make sure you: ? Wash your hands with soap and water for at least 20 seconds before and after you change your bandage. If you cannot use soap and water, use hand tongue stitcher. ? Change your bandage. ? Check the area around any injection sites (injection areas) every day for signs of infection. Check for: ? More redness, swelling, or pain. ? More fluid or blood. ? Warmth. ? Pus or a bad smell. Activity ? Do light exercise every day, as told by your health care provider. Walking or riding a stationary bike may be good options for you. ? Return to your normal activities when your health care provider says that it is safe. Ask what activities are safe for you. General instructions ? Take mapw-[id number] and prescription medicines only as told by your health care provider. ? Do not use lotions or creams on your legs unless your health care provider approves. ? Do not smoke or use any products that contain nicotine or tobacco before the procedure. If you need help quitting, ask your health care provider. ? Wear compression stockings as told by your health care provider. These help to prevent blood clots and reduce swelling in your legs. ? Wear loose-fitting clothes on the treatment area. ? Avoid being in direct sunlight. This includes avoiding: ? Sun tanning. ? Using tanning beds. ? Do not use hot, wet cloths or any form of heat near the injection site. Contact a health care provider if: ? You have more redness, swelling, or pain at any injection area. ? You have more fluid or blood coming from any injection site. ? Any injection area feels warm to the touch. ? You have pus or a bad smell coming from any injection site. ? You have a fever. Get help right away if: ? You have leg pain that gets worse when you walk. ? You have redness or swelling in your leg that is getting worse. ? You have trouble breathing. ? You have chest pain. Summary ? Swelling, bruising, and soreness are common after this procedure. ? Check all injection areas every day for signs of infection. ? Wear compression stockings as told by your health care provider. These stockings help to prevent blood clots and reduce swelling in your legs. This information is not intended to replace advice given to you by your health care provider. Make sure you discuss any questions you have with your health care provider. Document Revised: 08/15/2022 Document Reviewed: 08/15/2022 [employer] Patient Education ? 2023 [employer]. [facility] Coding Summaryon 10-12-2024 Coding Summary HTMLBase 64 OnalrkyqTTf9oFu+PGhlYWQ+ [id number] TElOSywgQVBQTElOSyIgbmFt TU5edUPlGGHg IC8+BS6uRQWiKhgotYTcp3H3 cSD8U64uuk0iMCafaVC1QPJm AtSeqplcd9hovFl1KVipWavd OyBt BUFdeG37NPB1tA91Ll75vHCy uRZqh6uakNd7GiYbEKFqTTP2 lSspAErgc3RbPDTgD19waESg c2U6 YYUsqWifyDBnUxHqjRL4mL3p WCcrglszs3huvgbjQxy5ac52 xTYps1C1yKN5K2BktdM2PQPu bGQg MocheTDPjP8sygqgd3bnichp HyNdRVMiHKk2YYn9BMQmzLyv JoQvNX37FNH1NLVqdlZlB0Tx LWFs mUlaFnF6k8D3Vw0CM3VALvyj G7UBNKVPSMeflOZ+GG62yx29 H6KcRrqyYwx0JACjLAZ3cNK3 aD0n WEPdXMpnz0E3oMO6W6FrflGa nn6po9mlZZOyEGftS81yvAHc v8U4DUPkjHL3ZAGohFykQfPw aG93 Oyc+CEJyhDkwa5AcWltzh8yp m9nysEk7QtbqTTPdmdQwaGod UTO6z6OkOk7xZRFulNA1zIJ9 aD0i JnIsPoU6RQgsX559BcPxaUNr JnlmP15pJ3CxmYL+PHRyPjx0 GGWsjSxxKO3zL0CePSFtzyry bGVm eNtkCZ2nYCPgvvdwNXRpgS0b IZKiU1o6OaDwAyL0HBvoZ4Oe WAHmvofsIi52cW2tOnRjBaT1 MGlu Q9MvfnZ7ZTUrcZNyWKgfWBS0 F26ee0K1ZCNvKMZiDZS2cLK5 qM4izErindasoNPkaNxbaoQx dGlj ZSmpIUdoE102FMNujVefNuCv ZGluZyBEYXRlOiAgMDUvMjAv MjAyNTwvdGQ+MFIzTCB4nKvl PSAn eSRmPKqtAo6dbEguiHpnHK2e PVTnyfjvRWItmS0zDKJpjYXl nUtaFF6qUCDzfbqmy417PzAr MHB0 DHSmxEUvT4HluI7pUyMtVVSl ZTDkK8RkvHWkIFyzA278TFft BxP8UEPezrFnE1UtHSTdxXir OiB0 o4Q7Rh7Qz0NvfdtuL8IgmESc QgWgJleqLYc5U8YbNikkgLB+ SQ47ORPnVI00EHw2JWW0sMkw PSdi KFYxS4DxaZ1mZmCwWXKjWWMn Oyc+PHRhYmxlIHdpZHRoPScx NORqAbUsvWteNY1jSm4kZZMz LWNv kWfjhORwOyEsw9oyZRNsCZrl WE1iqBpzA5BrnTR4UMVuy1d4 Gr17R04fV8MsjFW+PGNvbCB3 aWR0 jK9hRlFvLmP1CYbaV777ZgDf uNCnAhith5hzf9xzoVr3EcS6 DMOlzeUuvBypMTL4f3XpCk59 Y29s IHdpZHRoPSIxNSUiIHZhbGln vi9xsE8tTw7+ICRrcXO1vRZ9 lL4yXzStKtE0DFuvD719CtQv cCIv Hyngy4sds4psvFo2PtUvQDUk rmAwbHkhPYA3t4NdOk27Q0Sv dTspb0XqFmu6lg99oNYdx1O1 bGU9 E0OuWWEoxlkykTXolQrvDJ5b XAEbxfzzKZWydO4zZHLcL5q3 WqMkIxZ3HUllG5BipcE8QZYf bGQg WTLwaUXZvH9kuqfqq0oaytqe DfAyBSUlPQa4TDq8BEArkYxr LlAyRER4IoU6EKU5cNTosK2j bGln pqlsxK6oZhl+JXI3ySXsiMXN ZW4wAvdqzBX+FZQgPFS0tSpt VYedUSTzbV5aIAYrX6m5PpEx LjA1 TVaaP6FkgiK4QTQpvFWgNXHs xOMSyR9pbilbo7rwchokGbRo KLKgTWv2RAa1SOBmnGmzXqDh ZWZ0 FyJ4SZH8xCIgfQ0udWjxklzy bW0vEjj+LrmlnJauXCK1UWb3 O0JeSsd4VOTkvPyzLE1xxVWw ZGlu Va7svDpezBufNS8qEDLtheae b092DySjs4prYFKlhHQlSMwz XVA1V31yw6Q4FDJhUAXxVIT5 dGV4 oV5ieNcabvkjoOWorVpqzeAy cGpyEBfuOHvvR587CCFmdRrl CeBxQQc0P2RhDnr6AYClkYhn ZT0n tQHaPOiyUe3wbVfkiRahEL6w OHAjicodp114SfCwp1wgIGRj lPZhZSogPDD4A59th0R8TPPf MDAw IKQ5bLN7dY7gmFuehguiaZOn jIjgdvKemRexUBdeVRlxU065 IJCufTnpHsKdsXa5L6StNyc9 ZCBz zCuhGV6lpKUdZGbwYw0syHna eZtfUP5hPBLcinfhr991BlWs v9snPKCbxLQeLWsdSUY8L92g b3I6 KJEjTCKdYEB7sCM7wF5mlQru bjogbGVmdDsgdmVydGljYWwt IFpfO337KRRyrErqQoIliUji bnQg LSzjHDh2C0VmQfqldTA+PC90 MEXxYW81jCWrpCGtq3btxSo5 CmXxYZHeRCR8gOcaNQvwg8Aw ZXIt B52ncXJew2M8LRZmlVncuWQu XoEpiVV3cH9aEFeiwmqfq6cc oqkuEtbmb1oxyw82jE90O45i IHdp DFRuIEIrBJXyYDHakEocko6g cE2aTb2+UTBqtEV1jTK1zU8j HXTqPvO4MGbuQ636CaMoxYNx Pjxj u4jch8flpUu8WsR1QYTbxuSi rEdlBUD3g6XbXo19Q86zBRrl HORcPOViQUChXTJatUscmq9g dG9w Ii8+BIAddHK2xNP2dR2oZfFe NwI1FGafB702AxNlkBQyZanp T01gN2EhwQL+NLPmLfa3YALo dHls UA1qkDTnJJieLg1vYKH4PmHa VdNxLIeiR3RdAUJpzmtvyspy nOM7ICNrTOVnnK96Gw9aeXof MTBw fCTHhB8fmalqo6zptueqXqId GQCgVUg3WTi4FKYgtGwwRmPy ITN0LlM6XCF0mCYvcD1rfDom bjog uE4tO5YaUEMojbcfAy74uJ4r JrOnOsW7FZckNvd+Q7QPP5wG XFZCRXEsAN9RLidSJzvIZV87 ZD48 dBNtz3I0kNB4A7MzLIHsfekz bdlrlNL9QUDoIGXazO18sWPm EUbeNp2wb4Z9q512RHTtCKQn aW47 Xy2bsJdyOSWgjGVYcG5altyg v6jeovtkGtNxCHZoTWm7MSh5 INLqoFlbPsQzGIN0LxG3TAB6 aWNh aN6jlFentuzazY6qBxn+MTAv JLVlRAz7DOdvpIJ+PHRkIHN0 zPqoNJwdIQYnfR6yXQVhX1w9 OiAw RfE9QQluC3WhXATqxctlXk10 wV5cUsBnTkV8YLveX1XxzeN9 JAJffTZfKGcdLGZ7H20uj4X2 ICMw AFGrFLB2fKL7gL4paIncgpqr bGVmdDsgdmVydGljYWwtYWxp S301GWJehWmfLjh9PIrvEFMx PC90 EO54tYMeq4I6zNW0P1LqHFIp lzwdgxhtfNE9HWYgOHFqdI86 aRNmOVqpPh0vq5D4z419HONd MDUw nC00Lw3vwTkmEJCyyOEFqH0u vzjga6kucpdmEiYtTAUuPCm9 KFg2PIUyjBmwUyApINB1MqG1 ZXJ0 gLGtbL7mjOdvykfygN7iXhq+ TrSAJHhLET22LI13fBHaa4W1 oCA5G8GmMXCvhxrucyckvJA6 IDAu LUNfvM46wQHeYIgxUa4ak0R4 x304MAWrJVQkxY53Rw2elDig WXBqyWTChK9yxmots4pljcep IzAw KLZyJXi5GOx2TIMuyHqoJwLo WPD0JaF4HMG2qVEnaF7ijPbk zjaidG4xBda+T1B0Z7KaEvlu dHI+ KU78PVAbJQ62sYLxpBMod4qm lBb2UoTrHGJyLFR7pTrlWKvd r6HuSDTfY06atNRcd0V1QXJm bGxh xIDoPcAhbHQ8zU9yXKcmvvzz q6wiszpcDddxo3dlbm23uT16 S36kGDorCRScWOCeYWRgZYRk bGln iz2dsD3eSl2+IKEyaVZ5zSS9 lC2qZlAxJlC0PVvjC185KaMz wVMaSucmc6tti0ilcRn6TxFj JSIg qxAvgPzwUOY3w2GsPy83D85d IHdpZHRoPSIyMCUiIHZhbGln zj9ndJ8zWf6+LF0qu8bgxu81 cD48 dHI+EWPkRWE7zMrbNYxvHCSy nB7eBFpxWaT2YXWxYgCulG19 xMPbEBonNy2tgOfuaPtrIN7i NTBp ipfkc639NsTdl1ltDGCzcSVf SLmiVKE1D20tn8A6KVHvKDLu RVC4dLP1zX8rkWvpvawtzCHv dDsg ctLgjAzfRVjhNHcgC161KVRd fBzxMdTdrVCwG0jyupLCQM2z OjwvdGQ+NFCsWYJ1jRnuKVbu YWRk eE6eWCUsO6v6VtKpHdC8ICyv S3NdnnC8AKNouOWlIRMijDXS rR7jamnfk2mekwasZaScLPLs MDt0 XRq2MKJktGnnKwTzSNU8TrJ8 OBB0lVPioU1sbDwwszebwP9t Oyc+RklOOjwvdGQ+PHRkIHN0 eWxl OYyaLKHhoK9cYEFxX2n0PgHo ZkY7WLuwJ6VinwE6UUJenLKu SFQmzXNUnD7jmijjt5qoazpr IzAw BSGfTRp8LMq1EZZygDhhDpAj IBK7ZvH1QIB9iAOhuM3xhWvh zttooP9qIec+TVJOOjwvdGQ+ PHRk MGS8wReiSDybZRKvlU5pJRYb K8s8LeYvHxW1YJxyS1YojwK4 ZGGneCHqDHZihCLVeM1zpibl b2xv obleXuGjFHGqACj4UPr8LCDd xNddWsGpPDB0GeM9TVP6bEYv hU1euUzpwdmihJ8jLmz+UGF5 ZXI6 HI56GD47O4IkGvgipABixSI+ PHRhYmxlIHdpZHRoPScxMDAl UnCeaZefVS9dVk9qBVAlXBNb bGxh cHN (more content not included)... [facility] Mamm Screen w/CAD if perf and 3D Bilon 10-12-2024 OR Mamm Screen w/CAD if perf and 3D [place] Exam Date/Time: 10/12/2024 11:42 EDT Reason for Exam: Z12.31 Report IMPRESSION: BIRADS 2 BENIGN FINDINGS, NORMAL INTERVAL FOLLOW-UP.12 MONTH RECALL. CLINICAL HISTORY: Z12.31. COMPARISON: 10/10/2023. COMMENT: Routine views and tomosynthesis views of both breasts were obtained. There are scattered areas of fibroglandular density. No dominant breast mass nor neoplastic calcifications are identified in either breast. There has been no significant change from the previous exam. The examination was reviewed with Computer Aided Detection. Breast Density: No Mammography is very important to your health. The current [place] [employer] and [employer] guidelines recommends annual mammography beginning at age 40. This facility utilizes a reminder system to ensure all patients receive reminder notifications at the appropriate time based on the recommendations of this exam. Board Certified Radiologists. Accredited by the ACR and FDA. Ordering Provider: Huma Shannon FINAL REPORT Dictated: 10/12/2024 4:08 pm Kenneth Zamora M.D. Signed (Electronic Signature): 10/12/2024 4:08 pm Signed by: Kenneth Zamora M.D. Transcribed by: DANIAL Technologist: RAFIA Assessment: BI-RADS Category 2-Benign finding Recommendation: Normal interval follow-up Normal [facility] US LE Venous Duplex Righton 10-07-2024 US LE Venous Duplex Right EXAMINATION: US LE Venous Duplex left HISTORY: Phlebitis and thrombophlebitis of superficial vessels of right lower extremity COMPARISON: Prior procedure. FINDINGS: REGION: Left lower extremity THROMBI: Heat induced and/or microfoam chemical ablation induced thrombus within superficial veins as expected. . No thrombus within the deep system. COMPRESSIBILITY: Non-compressibility of treated veins as expected. FLOW: Absent flow within the treated veins as expected. Normal waveform and antegrade flow within deep system. OTHER: No remaining varicose veins within left leg in need of treatment. IMPRESSION: 1. Successful post ablation occlusion of left leg treated branch saphenous varicosities. 2. No remaining incompetent varicosities within left leg in need of treatment. Final Dictated by: Neptali Islas MD Dictated DT/TM: 10/07/24 12:03 Signed (Electronic Signature): Neptali Islas MD 10/07/24 12:08 p Technologist: [facility] Coding Summaryon 09-30-2024 Coding Summary HTMLBase 64 GklqdfhdKTy7tUm+PGhlYWQ+ AC8HVIDnZ57tkKMjrA9oY3NT TElOSywgQVBQTElOSyIgbmFt LA8nvXYuGZAn IC8+KB1sAEKdQfbehBWui8U8 rOP7A77zvt7eBIbhmPV2RULb ZdBjkivqd0mfyUb5FVaiNfhv OyBt FRJkrM07BAT7dY83Lc01iMOm mGRwe7wmgCt3AyPbZANvFLY0 yLcgKDgqh2XnJLZxA97saSAi c2U6 CLLhvXjzcJKnQmTbhZR4iQ5y RTuwqadvl2odkyzqIqs1wj92 gBBrj2I5iXZ3S3IffvX1MCXr bGQg NohehSOGhN6mocgyt6nygtwh RcXeAKTeFSe1NNc5FJZjeOct BdDnYE59YCJ5TPQbmrWiK4Ny LWFs mKuaDvH2x8Z2Pb5MJ8FMJyom D5QLBSBWSYspwQD+FT80oo93 Z5KnUfvoCfo6CQBfALZ9gSB4 aD0n TTAjNQjzr5E6rWT1J0IfdpSm hu4gj3ulJNIvEPryE68lfLEi g7T9YKQoxUC6URTgrWoiEnPq aG93 Oyc+GYNqpAjlu7KoKkmch8fp k4kntYf9FrwuOMBjtaKcaOxv UOH2r6JwJb9eFZTneIO1rRC1 aD0i WfXmLmR8UMpbF639VaRekHRn YaioY40aN9OvxZW+PHRyPjx0 GYVbtDobZH0oD2CgUEZullfg bGVm mXndYX2qVWHgreeuCDBgmL6s EWDxO3i4YuViMnP5AOctY8Vu QOYhleevVn63wM0aZhMsRwS7 MGlu U6CzyrK6DIPceIVmFAdaTGL1 M38ci8D4ITZuKSZsEFM7nSC3 cU1kdOzkfwhovJRvfJvatuVp dGlj LSwiRTqmI732SDOeoPbhCiNm ZGluZyBEYXRlOiAgMDUvMDgv MjAyNTwvdGQ+JXUtANT0sEhl PSAn pCDrZLinOq4kcXficOluDG3y DQXttzfwTFMawM8cXVXbfCRx cLeyEN3xTNAhmndzk285LaZv MHB0 SORkdBNgM4RazS1cNoYuQDMh LROiC9TfpSVxQZibW892GPgt UrJ7TNLqjiWhT1MbHQMxkUod OiB0 j9U5Ov9Qn1RxcyrsT5QdmVAh OpGySqwqRPy1H0QnXiqhaGY+ SH02AASsLI20UAt2ILV3sAle PSdi EGJcE4ZoeJ5uYhYkHZYoIOPf Oyc+PHRhYmxlIHdpZHRoPScx BDKhNcDyrUxdLJ0tJf5mVFBv LWNv iNiywTAfRvGer2jgEGMjZNaw FW3wzTkfN6OywSY7OTDxf1v0 Lv86L63oC4QnnTA+PGNvbCB3 aWR0 bN0eZsRyZtR7MAacK961SdXu pZOsUhmcd2ikw3ysnNu7BxV5 PRWcqiKgbCkbSNH5l4QlRl35 Y29s IHdpZHRoPSIxNSUiIHZhbGln do2jdA7nXe3+NNTylYG5dMD0 wJ8cYnIhFcJ1ELdfD648EuUi cCIv Ymaxt5upu3fnzVg0LqHzHPMz cjRwpXfhPBI0h2FbFf23K9Uz bBafu4YyPcy3jz98yKEtn2X2 bGU9 T3HoYDAzdtjayWMzdDxuWG0s YXHowlfmUJRnfN7uOGDhI6c9 RqQcKwL4EHrzG0CpkoW6GEHl bGQg BPGejVXFiF0qbvhmy7hucfdq HvXhBKUiBTx0EOx2LGPxzDhj DtTlIQE2AnW3XCO0gDWoaJ5h bGln uytvyY2xVgo+DVA7jVAobYME KA4aQwchaSH+HUWiDJA9xNwz ONqhEZIekC1zKXEuS3a0RiOx LjA1 INgwH0QwihZ5RSNkrNGaVDWe nQIBoG6duejta8uzmsfaFrCd GAGzQGr1LDy8CGPhgRgtVePk ZWZ0 FdI5ZNC2qRIlqV5zbIpfgrjc qL4yTtt+HyldeVqrTEE1ZOb9 S1HvBxw7XTIfvKgmIA3oqQLv ZGlu Ki3mhMlwiXsrCD1vFCLkjmap z627MiWmq2usKQKdwGHiJIho DGW3H95em8W8PMBgZHExLOS4 dGV4 zL7fqGdgufqanNZevBpefwVl lLklZQisEDwkP824WUXznKdm GfGeNCv6F9VnKth8YFXigWnx ZT0n kVFaIUcwDl8lgShdoTejSU7c NMTmydhgq928DsKpb4tcEASn zNDgDSsaCKG4N36ka1H4JKKa MDAw QNP4vUJ1zX7waXtvnxalgKBq tKvvgjUeoJwtLSrnBXwbW218 YZLhzNpvOzIpoIg8Y3HcDbj9 ZCBz sJoaLH4xkIGfEUlnEk4uiMsq kWkcIM7jPSIfaivwn306YmHy b9peFFPakNCpNCtxCIJ1R51g b3I6 CLVqWMWaCDF2fCN2oU8qpIce bjogbGVmdDsgdmVydGljYWwt KGykZ631ARYwdGlvKgWxtBoq bnQg PGfjYIj9R3NhAsycuQE+PC90 VCPcJE41nXEgcUHeu8jphMv4 RjDrPAInNKV6pLueVBykk9Dm ZXIt X21xeOClc9D8QRTkrEfvuINl QpNbiKL6hA0uPKihrkozi6cj ftoqJcdrj3ltla59iJ11I83v IHdp BUIyJWWdTIVkERBjmSyjmp4l dH0yDk5+DOJmrXR5zHC8sH9x FIWhMhR4EBooU337NoCwwGVp Pjxj k0jap9hqfMk1OwB7RLIlckSs iGmnXEN8u2UyTm72X84eQGrx YVOuXESwQEOfWQIszIdkaa1f dG9w Ii8+KAUekSA4zNV8iV2bMnHe JzL0USnbV993LeNoyAMgYpqk L51jQ1HveIX+ZSSxWwn4CRWe dHls PM0zwZSsRImxCq3lOBT6DjQr DrRiERteT1TiEEIvhpjzwwnk rSI7FLDfFJSqmH48Dm9tsQvt MTBw uFNPlP8kjueff2zlakpcRzIr OKReJYe0ROn5GMRhyOxaOgTs ASX5ImL9JXP9mKUjwC0huFch bjog lG3lE2TrVFUgwrciUv15aN6l AcLqPcX6PVuxAma+X7PZO4zU RMBJLIJuZX3LOweUErzXSX42 ZD48 dCFcd8Y5fBN2G3HxGJYfnchp eobsgRD9YVSvKRStnP05nYYh ZVecXh5il3O4k954MCPyERPv aW47 Fi8zqXaaJWWdlJKSqR5xzcob j9cjqfizZuJrNIEtPTa4VCv8 GZHtfZjqPxBcJGA9CuT7ZCA5 aWNh yO1gnLpuvoastC4oGxn+MTAv OMVdBBp0EIarzXB+PHRkIHN0 pFvlECefOKQwlM4lFXTuZ3m4 OiAw KgT3KBnpQ6OkFPLbhqeqYb74 jP5kJmRnMuW5LJpfX4DxsiK5 ZYCntXUxYWfzUJQ0T67ma3Q4 ICMw TGGzIPJ6uQN8vK5jyYawcalw bGVmdDsgdmVydGljYWwtYWxp T006DAOvqQtxXot4WEimTGJi PC90 SL51yHIhf3P0jDS7Y3QvEFVx yqblukzipME7WRRpQBMyvW72 jQYuKSaeVg0fz6G0k961RTXv MDUw iI17Gz6zdJwiQYUorNCYeM5s wgbpa0tmjklsCjQqWJOrEHy9 ASk7QQEzvVutGdIeHDV6QcH8 ZXJ0 oNGntZ2iuZccgkcosD1yTmd+ AgPPMQeIRA87OY66mOPsh6A1 aFQ6G0ZcPDBmeskzrjbyaVS8 IDAu SQFdlY63aNZoWGlcKj6yh6P8 s503BRKzBRTfjU30Vc8cbFqv XMKcgMPEkO8vfvonz3yxzrtz IzAw MNLkYLy9DRl4XBMpbGzkFqYv UIL5OfR5AUW2jWPqnR3eqBnk dkwnzD0nHqg+T7W2E6PdZikv dHI+ CX43YYBqPK99iHZjwCLxo0xx sYi3TeZkWMLsRBY2nXsdKCez i5PfVFMaR14zfGRyr6M6IZCs bGxh wEGeYgPrvBB3fN3hPAkrcpca x9kxhmcyAiyuf7jtgq85gD49 V06iJUetOWPoTBGlJABcXMYg bGln va5akN2kMz7+IJWdzWN9xJB1 tF4bIfZgAeB1SIauI058KeCw uCKaYypkt4gtt5kgySb0EvUs JSIg scTnkLufSYU2e6MfSc89P89j IHdpZHRoPSIyMCUiIHZhbGln kh4qsO8sRd5+NN2ip2tfoe74 cD48 dHI+GIEcLAE4mIyrGHcbWPZq uK6xJYnyWkK9IQJbHiXclH32 vOZxGOrqKy6qeXbalZdqQE7m NTBp ghzbo864HyEop1cxKCSgcKVp FZasQKC6I66hm0T7UHBvAQEi OWW2rNL3sW9pwAavvuhjkYXr dDsg pcPegJlwJQvkTZwxG408NYPx nSlyAoQkhBAbX3wjgwTMKT2o OjwvdGQ+EMPxOIV3dYyvLWev YWRk xK7gWMHcK2o0LlDsOeT0RHtj L8VlffE0CWBjoKZoTDDjvZIA jA7tgprtl6qnbwqcSjFnIHQl MDt0 KBs9GOHtpNlrOdAqWTE5NaX1 ENO4hNSyiT6kfIcctjnwrR1h Oyc+RklOOjwvdGQ+PHRkIHN0 eWxl ESohLGNxmZ6fHREuS8p2GdAb JiX8FEylC9YejxP6GCZtdPVe MEBgvTHHbV4kfrdmg7wykzhm IzAw MVWwOLg2QXw0CDVzzQdvLoKe WMU5HiD0MUD1fPEzzH4suGam wtzgtF3bVwa+TVJOOjwvdGQ+ PHRk NLD9wWyoVQcsJMMlyW7sNCQv D4i0XzIcWuS1GAtqF2BygaU2 LSQybUAdVZVdtWJKtU7ypkel b2xv jpmtNtChJMPaIEo5YEn7MTEd fFupSuZiBMA7PkL3LQR0kSMx dO7suCxqegronV8oQqy+UGF5 ZXI6 XY36QR59G5KkEnxzwSXqhAG+ PHRhYmxlIHdpZHRoPScxMDAl SuPwgHbkIQ9zAq4wDFSvNSEg x[facility] (more content not included)... Normal [facility] Patient Handouton 09-27-2024 Patient Handout Radiology Sclerotherapy, Care After After sclerotherapy, it is common to have swelling, bruising, and soreness. You may also have: ? Some changes to skin color. ? Slight bleeding from where you got your shot (injection site). Follow these instructions at home: The instructions below may help you care for yourself at home. Your health care provider may give you more instructions. If you have questions, ask your health care provider. Injection site care ? Follow instructions from your health care provider about how to take care of your injection site. Make sure you: ? Wash your hands with soap and water for at least 20 seconds before and after you change your bandage. If you cannot use soap and water, use hand tongue stitcher. ? Change your bandage. ? Check the area around any injection sites (injection areas) every day for signs of infection. Check for: ? More redness, swelling, or pain. ? More fluid or blood. ? Warmth. ? Pus or a bad smell. Activity ? Do light exercise every day, as told by your health care provider. Walking or riding a stationary bike may be good options for you. ? Return to your normal activities when your health care provider says that it is safe. Ask what activities are safe for you. General instructions ? Take bhul-ymh-lzswcit and prescription medicines only as told by your health care provider. ? Do not use lotions or creams on your legs unless your health care provider approves. ? Do not smoke or use any products that contain nicotine or tobacco before the procedure. If you need help quitting, ask your health care provider. ? Wear compression stockings as told by your health care provider. These help to prevent blood clots and reduce swelling in your legs. ? Wear loose-fitting clothes on the treatment area. ? Avoid being in direct sunlight. This includes avoiding: ? Sun tanning. ? Using tanning beds. ? Do not use hot, wet cloths or any form of heat near the injection site. Contact a health care provider if: ? You have more redness, swelling, or pain at any injection area. ? You have more fluid or blood coming from any injection site. ? Any injection area feels warm to the touch. ? You have pus or a bad smell coming from any injection site. ? You have a fever. Get help right away if: ? You have leg pain that gets worse when you walk. ? You have redness or swelling in your leg that is getting worse. ? You have trouble breathing. ? You have chest pain. Summary ? Swelling, bruising, and soreness are common after this procedure. ? Check all injection areas every day for signs of infection. ? Wear compression stockings as told by your health care provider. These stockings help to prevent blood clots and reduce swelling in your legs. This information is not intended to replace advice given to you by your health care provider. Make sure you discuss any questions you have with your health care provider. Document Revised: 08/15/2022 Document Reviewed: 08/15/2022 [employer] Patient Education ? 2023 [employer]. [facility] Office/Clinic Noteon 025 Office/Clinic Note [id number] IFF [facility] Coding Summaryon 09-21-2024 Coding Summary HTMLBase 64 AdhyiblbHRk5rUl+PGhlYWQ+ EX2ZZSIjU66gtGMjmN9gG7YQ TElOSywgQVBQTElOSyIgbmFt BF6ieMBgLPRb IC8+VT1sIJQbRfwkhMFnk7I1 oRO7Q48kxu7oDZokdXT8OUZe EzEldabox6ypwXm7FVziOydc OyBt CHOgyW35IHP8fC83Wt74qCWp dTNvl7awlXt3NrXlKSLpDJY6 gEioSBkvx9ZsWQUbN42pxJUt c2U6 CCJnmPsbhWDjPgGhtXF0rS2o DOmeakstm4wsagxqWpa1bm49 aPXyy6X9kPC7A7HgqgP5EDNd bGQg KafciPEZsW9gitnis8rsvjea XgYiHVCrUSf9ZGq6TWEecDeh KxZkBX33WFG3QWLfrpJwA7Kf LWFs fLciRzP7m7H1Bw2QM2VVKxjw Q6EIGSOAOHjjyTJ+IY02kd86 H3FpIanqFkq9TVQgKPU6lPZ2 aD0n CBQsTRsbz2A4eXV7Z6FixuAk yf5re0ffYETqRHcdZ43gsDLm l5L4HJPuzAJ3WECzmIonHtXr aG93 Oyc+RUToaRmqe0KiHmzst1gq r1gzmAu4CcekSLKtntQxrMgw RPZ6z0OnWz6iYLJroIM7pZO2 aD0i XkEaHwK6YXrkP648PvFooPEr NcjoQ22uF5ZiyNU+PHRyPjx0 WWXebFtiLA1vZ2BpKTUygosm bGVm rLmfRG6vDJViuesaRYZjpZ5w PPKmX3m2MoNuQzL1AAaoS5Lr KNZpstatAn71cT4kWeNxIcI5 MGlu U0LidfL8NFXqqSTjXUewAZS6 V14jx9S6FSKfJWYnWDU3aSW8 yU9flHaqdgfabDXerTvucrCx dGlj FDtrJSvzR850GTGqsJbaYuRl ZGluZyBEYXRlOiAgMDQvMjkv MjAyNTwvdGQ+OUBoNBV8dLms PSAn uIJjSSnjIo9poMrwyLjiZY6n ZGTfjwrgJSSyeC9hWZHrpFNj aJncGU3hVAWatpqpy853LaNo MHB0 JZCpcFZvO9XiyN6fHkTqGPEm YWFqX5AfqNNlXTwsB830MCdb UtB7MELuelIbS7MaKSRcdVnh OiB0 x0T4Hh5Ve7ZbsffiD3JpkTAr EpXnLntlMKs2F5FsEqxcqIW+ BW85IERsBH41PDi8QBA6gObu PSdi KDSaN7NuzU6uPwAoBNLqVQWv Oyc+PHRhYmxlIHdpZHRoPScx EABaXmKgwSkjCH1yGv1oPYXz LWNv zLcxbILtHrHir3gmTXLkGKjw YR2rqXxxK4KerTJ3DPNct1z3 Cp95G78qB8GlvKR+PGNvbCB3 aWR0 eK3iIpSeUfN0SVdvC803XkPm rBFrNmmwh2vqv9herWb9ZmC5 CTBnqwTuvKzbIDX8o3YuOk94 Y29s IHdpZHRoPSIxNSUiIHZhbGln uq7wfV3wEs5+QKCxiEE5kAN4 pK5dFkLkSzS6PXkzB954AiXo cCIv Xaghw2gds3thgXv0EpGrRVXc qrTmdNsmZNI3j2HcMs66J9Im eLvbh7VzCoz6pt91jDUki8H4 bGU9 Y0McGHVlfxxldRPdbPaoJA1j WCIrflbvWNKciC2oQJKjV2y3 RmEuDzI6OWudN2PmxhD2SVUr bGQg VFEmvAXSeV3igvila5haszmt HuCyEOOrMUe4ATr2NMLmpFrr TrLiZVK4NtN5LWN9rBJcjB7w bGln gbpwbF4zEsc+HQB7pUVwvMQV AS6zKpavuSO+UQDpLUT9hTqw GLbtTDCylN7nXZWmZ2j3VeWg LjA1 MSfuB5NdzvP6HGFwhALkHWSj cYQQuD9umklij2rykkavApDy QBBxCQd9TSx8WGQzkKxiCkEy ZWZ0 LoM2YMM0oEQjlJ2xpGzvkzth rC6gFlv+WlcguAjhMRM1IVq1 F4XsDaq9GCWszVnzHK4sjYFs ZGlu Qo0pbBhwtOkqXZ9zEXZdwubn o267FfPbq2myGWKqcKXePCks XIV3R29vn0G1UVAvKPNzURQ4 dGV4 rY4ubAzegexjfYLyoKqkneRu wWdzJPmsUJceF571AQCtsNtl VxJeBJr0D8AbAel5YRArwVvr ZT0n vIPrJHrnGv5rvLtbqZtyIL5q ETIudxdee666OvBda3xhURRh tBNuTDrfCUQ7F05kh5V9NYRc MDAw XMC4vYT9zK9blYjlendyrSGe xNscpdAgoSlyDZuwFYmaX745 FWZzqNreLoZemEn0P0QpRgt9 ZCBz dHsvNM7crEWnZAzwRh5leUki mNmfXS8gBWZqbshnq969HwMa o4jfLHXogXThCEktPAY5X53p b3I6 RIZnRRYtUKC1fRJ2xP4ikWwq bjogbGVmdDsgdmVydGljYWwt DDmcI369WGNneOwxUhVjgSxa bnQg RYkpLQa6J1RyTeubrPO+PC90 MXMqJC67qRLmuGIbh1pvwDl8 GbNxQKFmLWP5aAghGKzlb3Xn ZXIt Q49ftFOix8J6XHAxeHdofMSx MwWovJS7sF0qDPpnclfid8qz drwvOkybg5efyg97kB42R03m IHdp QUQjGSQiEHZoUSOggGlwkm0v rU1bZm8+JLDqoCA1lGC2cP1z BOLyFwL5SAhcU625SsEltOMw Pjxj q9ajb7engHz1JoR8MXAxlbWy jWypWSV4o7IbHl05V02zMNeh RQYiVUDnBVOzUDTqvMomye0o dG9w Ii8+LMEejTF3fST7pD5aUvXs GyG6COieH327LnMcyVLlGapj S16eZ0SgxKG+TLOfSlj3XMAy dHls JP9dmIDcIEblHj9xDXB3AxFd ZcQaRThlQ3PbZZAsplwlwfkc yLA1LPWxPIFerM11Hn3gxWux MTBw oZLTlA1vesabp5lfoghpKfZa RWGcZXr0ROp2GIZizZovWdJl UWZ5NuV8AFJ9oPNaiE6diFtf bjog yW7xN1HsPLRvmohqOf16kK9s PjYlXdN4YLimXnk+X7QRC0dB EGVMWBQwYK1BCkzLVolIHJ35 ZD48 jHAaw5G0nUH1W6GyNDYpolzn jyhvcHW9FUBsJLRrbA43mCBf XQpwIe8ra2X2o544CNDjOXKd aW47 Gr7ccGohJQYerIDKgG2nkxma e3ibvpbmRkGzLHCrIGg6WAa4 EDTnvJwcViVmRHG8JdW5OOD1 aWNh fG7abIhryndciM7cStb+MTAv IJEfEOc4EYbspZU+PHRkIHN0 mUpcUQvyPJZwoK7jAFUlY1k4 OiAw FgZ6UMwaB8PdJJSnctitBx15 dH5yEjCxHdR9HCbcN9KfcbD4 PSWjfPZeXHibPLC4Y04ju5R8 ICMw UBFcTCH8wOZ5vF0ypKaejsfw bGVmdDsgdmVydGljYWwtYWxp G683ZVBqrKonXxh2XWvbPDAn PC90 RP88rXVcg5A4aUP3N8KhFEBg kzzgayjkbGM0CHZpVJMlkA79 qIDdNEztDs0dr7N9d456ROWm MDUw mS38Og1fjMubDNOoeUSMaS6x gyzcs0jamjdhOuNgKHAiQLd6 XJu5WROicBlnIpVkIOD1CrR0 ZXJ0 iLMnfS8ibLnrvsowuY1yFbb+ NmZZWWjREI89HH84mXCpy2C8 qPV9C3FhDAFsxwmwdioizSZ9 IDAu MFPnvV13tJDjPLpmMf4oy9I6 o293SBRbEGXmyG95Ot5vdZvd JTSsxACZyB5cbtowj8gvshii IzAw IKNaPIw7QJj7PINgrMvuXoWj TIV8FhH7PJG1tEUkkA9plJrc lsslyJ0gAhy+I4I4R8YtHeok dHI+ FO14WNBoTE06tXBugBYos6hf eKg0TsEyVVAvVNY2hXstIBbi r2HgMCFbE02qcCOll0W8TSEg bGxh hIMsAtTykLE2qK2mBVkklcix n6ykadogTpowg8sjcn96oQ94 W33bPPneUOVnTFOzFCSeDPZi bGln as8zcM0lPc0+EUOteUB0tXO9 uT6iSpMcIcI8FYuuF140YnBr fLSkOrngu2yxu5kmbNy5UdPj JSIg ndDcpCrhIYF3x9NbWt90Z07z IHdpZHRoPSIyMCUiIHZhbGln st9zfM0jTo9+IB0wv5uzla83 cD48 dHI+XLJiEUC0lKrxBAqdTODz rV4tBPxjKkZ5IPGpEsXomY07 dYPcRHkjYt5pjLfucGnrUL1p NTBp kqerl446VxJda5ujAGZsoOHm LCdhSFU3D98wa0D2GLVzIELk DUY1mHW1yD7vwMrqqitcfMLk dDsg bqDicEvgPTlcKXwjD074UGBt yIjuSfRyeDOjI8nlkpJEEV3t OjwvdGQ+JFLgRXX3rEkmYEix YWRk kA8eNVUhE4o2KdAoBnX0ZMti M3OlmpI3EUIcuNAmJMHobIQA iW8qpseaw4psvgtjMzQaXSZe MDt0 NEn2PVGfhLosWvKhYLB4CnT3 BBD5cLRydN8sdZcpoulroA4x Oyc+RklOOjwvdGQ+PHRkIHN0 eWxl UVuqQDYccO8vECNtF4p3MmFb NhV4IZerJ0MvrjT5LGRrdRUe UQKebKRByN4rjqxxs7szuiul IzAw JTLhBGl9YEu1IBFjqEmaAkMu BZV5IhU9TAE9hHOllI9kzQef lbiigS4wQkr+TVJOOjwvdGQ+ PHRk NGV5xHnqZLtpCSPanN1hSYSp J0q9KjDoYuL3SZsbT3CuprI1 IPKcdIFjGZTshJTMkG7pperk b2xv jedlVoAlQGDaVPv2SZb9RRXf sQiiZwQzKJB2HyZ3CTZ9wTMd dI8pxQqgcpxqqM1gYbv+UGF5 ZXI6 CS44FU97X5PfTquilUNjjBT+ PHRhYmxlIHdpZHRoPScxMDAl YaLwvNzxYB3gEk9uEOFvADAl bGxh cHN (more content not included)... [facility] Consent Forms - Physicianon 09-15-2024 Consent Forms - Physician [id number] TIFF [facility] Patient Handouton 09-15-2024 Patient Handout Cardiovascular Varicose Veins Varicose veins are veins that have become enlarged, bulged, and twisted. They most often appear in the legs. What are the causes? This condition is caused by damage to the valves in the vein. These valves help blood return to your heart. When they are damaged and they stop working properly, blood may flow backward and back up in the veins near the skin, causing the veins to get larger and appear twisted. The condition can result from any issue that causes blood to back up, like , prolonged standing, or obesity. What increases the risk? The following factors may make you more likely to develop this condition: ? Being on your feet a lot. ? Being . ? Being overweight. ? Smoking. ? Having had a previous deep vein thrombosis or having a thrombotic disorder. ? Aging. The risk increases with age. ? Having a condition called Klippel?Trenaunay syndrome. What are the signs or symptoms? Symptoms of this condition include: ? Bulging, twisted, and bluish veins. ? A feeling of heaviness in your legs. This may be worse at the end of the day. ? Leg pain. This may be worse at the end of the day. ? Swelling in the leg. ? Changes in skin color over the veins. Swelling or pain in the legs can limit your activities. Your symptoms may get worse when you sit or stand for long periods of time. How is this diagnosed? This condition may be diagnosed based on: ? Your symptoms, family history, activity levels, and lifestyle. ? A physical exam. You may also have tests, including an ultrasound or X-ray. How is this treated? Treatment for this condition may involve: ? Avoiding sitting or standing in one position for long periods of time. ? Wearing compression stockings. These stockings help to prevent blood clots and reduce swelling in the legs. ? Raising (elevating) the legs when resting. ? Losing weight. ? Exercising regularly. If you have persistent symptoms or want to improve the way your varicose veins look, you may choose to have a procedure to close the varicose veins off or to remove them. Nonsurgical treatments to close off the veins include: ? Sclerotherapy. In this treatment, a solution is injected into a vein to close it off. ? Laser treatment. The vein is heated with a laser to close it off. ? Radiofrequency vein ablation. An electrical current produced by radio waves is used to close off the vein. Surgical treatments to remove the veins include: ? Phlebectomy. In this procedure, the veins are removed through small incisions made over the veins. ? Vein ligation and stripping. In this procedure, incisions are made over the veins. The veins are then removed after being tied (ligated) with stitches (sutures). Follow these instructions at home: Medicines ? Take udfg-yok-ldwksde and prescription medicines only as told by your health care provider. ? If you were prescribed an antibiotic medicine, use it as told by your health care provider. Do not stop using the antibiotic even if you start to feel better. Activity ? Walk as much as possible. Walking increases blood flow. This helps blood return to the heart and takes pressure off your veins. ? Do not stand or sit in one position for a long period of time. ? Do not sit with your legs crossed. ? Avoid sitting for a long time without moving. Get up to take short walks every 1?2 hours. This is important to improve blood flow and breathing. Ask for help if you feel weak or unsteady. ? Return to your normal activities as told by your health care provider. Ask your health care provider what activities are safe for you. ? Do exercises as told by your health care provider. General instructions ? Follow any diet instructions given to you by your health care provider. ? Elevate your legs at night to above the level of your heart. ? If you get a cut in the skin over the varicose vein and the vein bleeds: ? Lie down with your leg raised. ? Apply firm pressure to the cut with a clean cloth until the bleeding stops. ? Place a bandage (dressing) on the cut. ? Drink enough fluid to keep your urine pale yellow. ? Do not use any products that contain nicotine or tobacco. These products include cigarettes, chewing tobacco, and vaping devices, such as e-cigarettes. If you need help quitting, ask your health care provider. ? Wear compression stockings as told by your health care provider. Do not wear other kinds of tight clothing around your legs, pelvis, or waist. ? Keep all follow-up visits. This is important. Contact a health care provider if: ? The skin around your varicose veins starts to break down. ? You have more pain, redness, tenderness, or hard swelling over a vein. ? You are uncomfortable because of pain. ? You get a cut in the skin over a varicose vein and it will not stop bleeding. Get help right away if: ? You have chest pain. ? You have trouble breathing. ? Y (more content not included)... Normal [facility] US Venous Insufficiency Bila ton 09-15-2024 US Venous Insufficiency Bilat EXAMINATION: US Venous Insufficiency Bilat HISTORY: Varicose veins of bilateral lower extremities with pain COMPARISON: No relevant comparison available. TECHNIQUE: Duplex imaging of the lower extremity/extremities to assess the deep and superficial venous system for the presence of deep or superficial venous incompetence and to document the location and severity of disease. The study includes evaluation of the great saphenous vein (GSV), anterior accessory saphenous vein (AASV), and small saphenous vein (SSV). Patient scanned in reverse Trendelenburg And standing positions. FINDINGS: RIGHT LOWER EXTREMITY: GSV: Diam (mm) Reflux Time (sec) Saph fem jctn: 11.70 mm 0 Proximal thigh: Absent Mid thigh: Absent Distal thigh: Absent Prox calf: Absent Mid calf: Absent SSV: Saph pop jctn: Absent Prox calf: Absent Mid calf: Absent AASV: Not present Thrombi: No acute or chronic thrombus visualized. Compressibility:Normal. Flow: Normal Perforators: 3.2 mm without reflux LEFT LOWER EXTREMITY: GSV: Diam (mm) Reflux Time (sec) Saph fem jctn: Absent Proximal thigh: Absent Mid thigh: Absent Distal thigh: Absent Prox calf: Absent Mid calf: Absent SSV: Saph pop jctn: 3.20 mm 0 Prox calf: 2.6 mm 0.70 s Mid calf: 2.90 mm AASV: Not present Thrombi: No acute or chronic thrombus visualized. Compressibility:Normal. Flow: Normal Perforators: 2 incompetent veins measuring up to 4.7 mm and 1.2s of reflux Tech note: Varicose veins measuring up to 4.4 mm with 2.1s of reflux CONCLUSION: Incompetent left small saphenous vein without dilitation Incompetent left leg varicose veins. Final Dictated by: Ananth Valentine MD Dictated DT/TM: 09/21/24 8:29 Signed (Electronic Signature): Ananth Valentine MD 09/21/24 8:33 am Technologist: MG Normal [facility] A1C with Estimated Average Moose bearden 03-10-2024 Glucose [Mass/Vol] 123 mg/dL Normal [facility] Comment on above: Result Comment: PERF ORMED BY: [address] [id number] PATHOLOGIST PAI GOW MANAGER ARABELLA OCHOA M.D. Performed By: #### C BC, CMP, T3T, A1C WTH eA, T4T, TSH3 #### [address] [address] [place] Alanine Aminotransferaseon 1 ALT [Catalytic activity/Vol] 26 U/L Normal [facility] Comment on above: Result Comment: PERF ORMED BY: [place] [id number] PATHOLOGIST PAI GOW MANAGER ARABELLA OCHOA M.D. Performed By: #### B MP, ALT, AST #### [place] [id number] [place] Alanine aminotransferase [En zymatic activity/volume] in Serum or PlasmaOrdered By: Zeny Stanley on 03-10-2024 ALT [Catalytic activity/Vol] 26 U/L Normal [facility] Comment on above: Performed By: #### C BC, CMP, T3T, A1C WTH eA, T4T, TSH3 #### [place] [id number] [place] Albumin [Mass/volume] in Ser um or Plasma by Bromocresol green (BCG) dye binding methoOrdered By: Zeny Stanley on 03-10-2024 Albumin BCG dye [Mass/Vol] 3.9 g/dL 3.5-5.7 [facility] Alkaline phosphatase [Enzyma tic activity/volume] in Serum or PlasmaOrdered By: Zeny Stanley on 03-10-2024 ALP [Catalytic activity/Vol] 55 U/L Normal 34-104 [facility] Comment on above: Performed By: #### C BC, CMP, T3T, A1C WTH eA, T4T, TSH3 #### [address] Aspartate Amino Transferaseo n 03-10-2024 AST [Catalytic activity/Vol] 26 U/L Normal 13-[address] [facility] Comment on above: Performed By: #### B MP, ALT, AST #### [address] Aspartate aminotransferase [ Enzymatic activity/volume] in Serum or PlasmaOrdered By: Zeny Stanley on 03-10-2024 AST [Catalytic activity/Vol] 25 U/L Normal 13-39 [facility] Comment on above: Performed By: #### C BC, CMP, T3T, A1C WTH eA, T4T, TSH3 #### [address] Automated basophil %Ordered By: Zeny Stanley on 03-10-2024 Basophils/100 WBC (Bld) 0.5 % Normal . [facility] Comment on above: Performed By: #### C BC, CMP, T3T, A1C WTH eA, T4T, TSH3 #### [address] Automated basophil countOrde red By: Zeny Stanley on 03-10-2024 Basophils (Bld) [#/Vol] 0.0 10*3/uL Normal 0.0-0.2 [facility] Comment on above: Result Comment: PERF ORMED BY: [place] [address] PATHOLOGIST PAI GOW MANAGER ARABELLA OCHOA M.D. Performed By: #### C BC, CMP, T3T, A1C WTH eA, T4T, TSH3 #### [address] Automated blood monocyte cou ntOrdered By: Zeny Stanley on 03-10-2024 Monocytes (Bld) [#/Vol] 0.4 10*3/uL Normal 0.0-0.8 [facility] Comment on above: Performed By: #### C BC, CMP, T3T, A1C WTH eA, T4T, TSH3 #### [address] [place] [address] [place] Automated eosinophil %Ordere d By: Zeny Stanley on 03-10-2024 Eosinophils/100 WBC (Bld) 3.8 % Normal . [facility] Comment on above: Performed By: #### C BC, CMP, T3T, A1C WTH eA, T4T, TSH3 #### [address] Automated eosinophil countOr dered By: Zeny Stanley on 03-10-2024 Eosinophils (Bld) [#/Vol] 0.2 10*3/uL Normal 0.0-0.45 [facility] Comment on above: Performed By: #### C BC, CMP, T3T, A1C WTH eA, T4T, TSH3 #### [address] Automated monocyte %Ordered By: Zeny Stanley on 03-10-2024 Monocytes/100 WBC (Bld) 9.9 % Normal . [facility] Comment on above: Performed By: #### C BC, CMP, T3T, A1C WTH eA, T4T, TSH3 #### [address] Automated neutrophil %Ordere d By: Zeny Stanley on 03-10-2024 Neutrophils/100 WBC (Bld) 55.1 % Normal . [facility] Comment on above: Performed By: #### C BC, CMP, T3T, A1C WTH eA, T4T, TSH3 #### [address] Basic Metabolic Panelon 10- Anion gap [Moles/Vol] 9.4 mmol/L Normal 6.0-15.[address] [facility] Comment on above: Performed By: #### B MP, ALT, AST #### [address] Calcium [Mass/Vol] 9.5 mg/dL Normal 8.6-10.[address] [facility] Comment on above: Performed By: #### B MP, ALT, AST #### [facility] [address] [place] [address] [place] Chloride [Moles/Vol] 104 mmol/L Normal 98-[address] [facility] Comment on above: Performed By: #### B MP, ALT, AST #### [place] [address] [place] CO2 [Moles/Vol] 32.7 mmol/L High 21.0-31.[address] [facility] Comment on above: Performed By: #### B MP, ALT, AST #### [place] [address] [place] Creatinine [Mass/Vol] 0.75 mg/dL Normal 0.60-1.[address] [facility] Comment on above: Performed By: #### B MP, ALT, AST #### [place] [address] [place] GFR/1.73 sq M.predicted MDRD (S/P/Bld) [Vol rate/Area] mL/min/{1.73_m2} Normal [facility] Comment on above: Performed By: #### B MP, ALT, AST #### [address] Glucose [Mass/Vol] 84 mg/dL Normal 70-[address] [facility] Comment on above: Result Comment: [facility] Glucose Reference Range is dependent on time and content of last meal. Glucose of more than 200 mg/dL in a nonstressed, ambulatory subject supports the diagnosis of Diabetes Mellitus. ADA recommended reference range Performed By: #### B MP, ALT, AST #### [place] [address] [place] Potassium [Moles/Vol] 4.1 mmol/L Normal 3.5-5.[address] [facility] Comment on above: Performed By: #### B MP, ALT, AST #### [place] [address] [place] Sodium [Moles/Vol] 142 mmol/L Normal 136-[address] [facility] Comment on above: Performed By: #### B MP, ALT, AST #### [place] [id number] [place] Urea nitrogen [Mass/Vol] 16 mg/dL Normal 7-[address] [facility] Comment on above: Performed By: #### B MP, ALT, AST #### [facility] [address] Bilirubin.total [Mass/volume ] in Serum or PlasmaOrdered By: Zeny Stanley on 03-10-2024 Bilirubin [Mass/Vol] 0.7 mg/dL Normal 0.3-1.0 [facility] Comment on above: Performed By: #### C BC, CMP, T3T, A1C WTH eA, T4T, TSH3 #### [facility] [address] [place] [address] [place] Calcium [Mass/volume] in Ser um or PlasmaOrdered By: Zeny Stanley on 03-10-2024 Calcium [Mass/Vol] 9.5 mg/dL Normal 8.6-10.3 [facility] Comment on above: Performed By: #### C BC, CMP, T3T, A1C WTH eA, T4T, TSH3 #### [facility] [address] [place] [address] Carbon dioxide, total [Moles /volume] in Serum or PlasmaOrdered By: Zeny Stanley on 03-10-2024 CO2 [Moles/Vol] 32.6 mmol/L High 21.0-31.0 [facility] Comment on above: Performed By: #### C BC, CMP, T3T, A1C WTH eA, T4T, TSH3 #### [facility] [address] [place] [address] [place] Chloride [Moles/volume] in S toya or PlasmaOrdered By: Zeny Stanley on 03-10-2024 Chloride [Moles/Vol] 104 mmol/L Normal 98-107 [facility] Comment on above: Performed By: #### C BC, CMP, T3T, A1C WTH eA, T4T, TSH3 #### [facility] [address] [place] [address] [place] Cholesterol [Mass/volume] in Serum or PlasmaOrdered By: Bradly Tanner on 03-10-2024 Cholesterol [Mass/Vol] 152 mg/dL Normal 140-200 [facility] Comment on above: Chol less than 200 m g/dl low riskChol 201-239 mg/dl borderline riskChol 240 mg/dl and greater high risk Result Comment: Chol less than 200 mg/dl low risk Chol 201-239 mg/dl borderline risk Chol 240 mg/dl and greater high risk Performed By: #### L IPID #### [facility] [address] Cholesterol in LDL Calc [Mas s/Vol]Ordered By: Bradly Tanner on 03-10-2024 Cholesterol in LDL [Mass/Vol] 72 mg/dL 0-100 [facility] Comment on above: LDL ATP III CLASSIFI CATIONLDL less than 100 mg/dL OptimalLDL 100-129 mg/dL Near or above optimalLDL 130-159 mg/dL Borderline highLDL 160-189 mg/dL HighLDL greater than 189 mg/dL Very high Cholesterol in VLDL Calc [Ma ss/Vol]Ordered By: Bradly Tanner on 03-10-2024 Cholesterol in VLDL [Mass/Vol] 20 mg/dL [facility] Complete Blood Count Auto Di ffon 03-10-2024 Mean Corpuscular HGB Conc 34.2 g/dL Normal 32.0-35.[address] [facility] Comment on above: Performed By: #### C BC, CMP, T3T, A1C WTH eA, T4T, TSH3 #### [facility] [address] NRBC% 0.1 /100{WBC} Normal 0-0.[address] [facility] Comment on above: Performed By: #### C BC, CMP, T3T, A1C WTH eA, T4T, TSH3 #### [facility] [address] Comprehensive Metabolic Pane ute 03-10-2024 Albumin [Mass/Vol] 3.9 g/dL Normal 3.5-5.[address] [facility] Comment on above: Performed By: #### C BC, CMP, T3T, A1C WTH eA, T4T, TSH3 #### [facility] [address] [place] [address] [place] GFR/1.73 sq M.predicted MDRD (S/P/Bld) [Vol rate/Area] mL/min/{1.73_m2} Normal [facility] Comment on above: Performed By: #### C BC, CMP, T3T, A1C WTH eA, T4T, TSH3 #### [facility] [address] [place] [address] [place] Creatinine [Mass/volume] in Serum or PlasmaOrdered By: Zeny Stanley on 03-10-2024 Creatinine [Mass/Vol] 0.75 mg/dL Normal 0.60-1.20 [facility] Comment on above: Performed By: #### C BC, CMP, T3T, A1C WTH eA, T4T, TSH3 #### [facility] [address] Erythrocyte distribution wid th [Ratio] by Automated countOrdered By: Zeny Stanley on 03-10-2024 Erythrocyte distribution width (RBC) [Ratio] 13.4 % Normal 11.9-15.3 [facility] Comment on above: Performed By: #### C BC, CMP, T3T, A1C WTH eA, T4T, TSH3 #### [facility] [address] [place] [address] [place] Erythrocytes [#/volume] in B lood by Automated countOrdered By: Zeny Stanley on 03-10-2024 RBC (Bld) [#/Vol] 4.65 10*6/uL Normal 3.60-5.00 [facility] Comment on above: Performed By: #### C BC, CMP, T3T, A1C WTH eA, T4T, TSH3 #### [facility] [address] [place] [address] [place] Glucose [Mass/volume] in Ser um or PlasmaOrdered By: Zeny Stanley on 03-10-2024 Glucose [Mass/Vol] 85 mg/dL Normal 70-100 [facility] Comment on above: ADA recommended refe rence rangeRandom Glucose Reference Range is dependent on time and content of last meal. Glucose of more than 200 mg/dL in a nonstressed, ambulatory subject supports the diagnosis of Diabetes Mellitus. Result Comment: [facility] Glucose Reference Range is dependent on time and content of last meal. Glucose of more than 200 mg/dL in a nonstressed, ambulatory subject supports the diagnosis of Diabetes Mellitus. ADA recommended reference range Performed By: #### C BC, CMP, T3T, A1C WTH eA, T4T, TSH3 #### [facility] [address] Glucose mean value [Mass/vol ume] in Blood Estimated from glycated hemoglobinOrdered By: Zeny Stanley on 03-10-2024 Average glucose Estimated from glycated hemoglobin (Bld) [Mass/Vol] 123 mg/dL [facility] Hematocrit [Volume Fraction] of Blood by Automated countOrdered By: Zeny Stanley on 03-10-2024 Hematocrit (Bld) [Volume fraction] 41.0 % Normal 34.0-46.4 [facility] Comment on above: Performed By: #### C BC, CMP, T3T, A1C WTH eA, T4T, TSH3 #### [facility] [address] Hemoglobin A1c percentageOrd ered By: Zeny Stanley on 03-10-2024 HbA1c (Bld) [Mass fraction] 5.9 % High 4.3-5.6 [facility] Comment on above: Increased risk for d iabetes: 5.7 - 6.4diabetes: >6.4glycemic control for adults with diabetes: <7.0 Result Comment: Incr eased risk for diabetes: 5.7 - 6.4 diabetes: >6.4 glycemic control for adults with diabetes: <7.0 Performed By: #### C BC, CMP, T3T, A1C WTH eA, T4T, TSH3 #### [facility] [address] Hemoglobin [Mass/volume] in BloodOrdered By: Zeny Stanley on 03-10-2024 Hemoglobin (Bld) [Mass/Vol] 14.0 g/dL Normal 11.8-15.4 [facility] Comment on above: Performed By: #### C BC, CMP, T3T, A1C WTH eA, T4T, TSH3 #### [facility] [address] [place] [id number] [place] Leukocytes [#/volume] correc simeon for nucleated erythrocytes in Blood by Automated counOrdered By: Zeny Stanley on 03-10-2024 WBC corrected for nucl RBC Auto (Bld) [#/Vol] 4.5 10*3/uL 3.8-11.6 [facility] Leukocytes [#/volume] in Blo od by Automated countOrdered By: Zeny Stanley on 03-10-2024 WBC (Bld) [#/Vol] 4.5 10*3/uL Normal 3.8-11.6 [facility] Comment on above: Performed By: #### C BC, CMP, T3T, A1C WTH eA, T4T, TSH3 #### [facility] [address] Lipid Panelon 03-10-2024 LDL Cholesterol,Calculated 72 mg/dL Normal 0-[address] [facility] Comment on above: Result Comment: LDL ATP III CLASSIFICATION LDL less than 100 mg/dL Optimal LDL 100-129 mg/dL Near or above optimal LDL 130-159 mg/dL Borderline high LDL 160-189 mg/dL High LDL greater than 189 mg/dL Very high Performed By: #### L IPID #### [facility] [address] Triglyceride w/Reflex 101 mg/dL Normal 0-[address] [facility] Comment on above: Result Comment: TRIG ATP III CLASSIFICATION TRIG less than 150 mg/dL Normal TRIG 150-199 mg/dL Borderline high TRIG 200-500 mg/dL High TRIG greater than 500 mg/dL Very high Standard traceable to the Center for Disease Conrtrol and Prevention (CDC) test method. Performed By: #### L IPID #### [facility] [address] [place] [address] [place] VLDL CHOLESTEROL 20 mg/dL Normal [facility] Comment on above: Performed By: #### L IPID #### [facility] [address] [place] [address] [place] Lymphocytes [#/volume] in Bl ood by Automated countOrdered By: Zeny Stanley on 03-10-2024 Lymphocytes (Bld) [#/Vol] 1.4 10*3/uL Normal 1.00-4.8 [facility] Comment on above: Performed By: #### C BC, CMP, T3T, A1C WTH eA, T4T, TSH3 #### [facility] [address] Lymphocytes/100 leukocytes i n Blood by Automated countOrdered By: Zeny Stanley on 03-10-2024 Lymphocytes/100 WBC (Bld) 30.7 % Normal . [facility] Comment on above: Performed By: #### C BC, CMP, T3T, A1C WTH eA, T4T, TSH3 #### [facility] [address] [place] [address] MCH [Entitic mass] by Automa simeon countOrdered By: Zeny Stanley on 03-10-2024 MCH (RBC) [Entitic mass] 30.2 pg Normal 24.7-34.3 [facility] Comment on above: Performed By: #### C BC, CMP, T3T, A1C WTH eA, T4T, TSH3 #### [facility] [address] [place] [address] MCHC Auto (RBC) [Mass/Vol]Or dered By: Zeny Stanley on 03-10-2024 MCHC (RBC) [Mass/Vol] 34.2 g/dL 32.0-35.0 [facility] MCV [Entitic volume] by Auto mated countOrdered By: Zeny Stanley on 03-10-2024 MCV (RBC) [Entitic vol] 88.2 fL Normal 80-100 [facility] Comment on above: Performed By: #### C BC, CMP, T3T, A1C WTH eA, T4T, TSH3 #### [facility] [address] [place] [address] [place] Neutrophils [#/volume] in Bl ood by Automated countOrdered By: Zeny Stanley on 03-10-2024 Neutrophils (Bld) [#/Vol] 2.5 10*3/uL Normal 1.8-7.7 [facility] Comment on above: Performed By: #### C BC, CMP, T3T, A1C WTH eA, T4T, TSH3 #### [facility] [address] No Panel InformationOrdered By: Zeny Stanley on 03-10-2024 Estimated GFR (CKD-EPI) > 60.0 mL/Min [facility] Creatinine Clearance (Chem N/A [facility] Nucleated erythrocytes [Pres ence] in Blood by Automated countOrdered By: Zeny Stanley on 03-10-2024 Nucleated RBC Auto Ql (Bld) 0.1 /100{WBC} 0-0.5 [facility] Platelet mean volume [Entiti c volume] in Blood by Automated countOrdered By: Zeny Stanley on 03-10-2024 Platelet mean volume (Bld) [Entitic vol] 7.6 fL Normal 6.3-10.7 [facility] Comment on above: Performed By: #### C BC, CMP, T3T, A1C WTH eA, T4T, TSH3 #### [facility] [address] [place] [address] [place] Platelets [#/volume] in Bloo d by Automated countOrdered By: Zeny Stanley on 03-10-2024 Platelets (Bld) [#/Vol] 214 10*3/uL Normal 150-450 [facility] Comment on above: Performed By: #### C BC, CMP, T3T, A1C WTH eA, T4T, TSH3 #### [facility] [address] [place] [address] [place] Potassium [Moles/volume] in Serum or PlasmaOrdered By: Zeny Stanley on 03-10-2024 Potassium [Moles/Vol] 4.2 mmol/L Normal 3.5-5.1 [facility] Comment on above: Performed By: #### C BC, CMP, T3T, A1C WTH eA, T4T, TSH3 #### [facility] [address] [place] [address] [place] Protein [Mass/volume] in Ser um or PlasmaOrdered By: Zeny Stanley on 03-10-2024 Protein [Mass/Vol] 6.3 g/dL Low 6.4-8.9 [facility] Comment on above: Performed By: #### C BC, CMP, T3T, A1C WTH eA, T4T, TSH3 #### [facility] [address] Serum globulin measurement b y calculation (mass/volume)Ordered By: Zeny Stanley on 03-10-2024 Globulin (S) [Mass/Vol] 2.4 g/dL Normal [facility] Comment on above: Performed By: #### C BC, CMP, T3T, A1C WTH eA, T4T, TSH3 #### [address] Serum or plasma albumin/glob ulin mass ratioOrdered By: Zeny Stanley on 03-10-2024 Albumin/Globulin [Mass ratio] 1.6 {ratio} Normal [facility] Comment on above: Performed By: #### C BC, CMP, T3T, A1C WTH eA, T4T, TSH3 #### [address] Serum or plasma anion gap de terminationOrdered By: Zeny Stanley on 03-10-2024 Anion gap [Moles/Vol] 9.6 mmol/L Normal 6.0-15.0 [facility] Comment on above: Performed By: #### C BC, CMP, T3T, A1C WTH eA, T4T, TSH3 #### [facility] [address] [place] [address] Serum or plasma high density lipoprotein (HDL) cholesterol measurementOrdered By: Bradly Tanner on 03-10-2024 Cholesterol in HDL [Mass/Vol] 60 mg/dL Normal 23-92 [facility] Comment on above: HDL CHOL ATP-III CLA SSIFICATION Cardiovascular RiskHDL > or equal to 60 mg/dL LOWHDL < 40 mg/dL HIGH Result Comment: HDL CHOL ATP-III CLASSIFICATION Cardiovascular Risk HDL > or equal to 60 mg/dL LOW HDL < 40 mg/dL HIGH Performed By: #### L IPID #### [address] Serum or plasma total choles terol/high density lipoprotein (HDL) cholesterol mass ratOrdered By: Bradly Tanner on 03-10-2024 Cholesterol.total/Vee sterol in HDL [Mass ratio] 2.5 {ratio} Normal <5.0 [facility] Comment on above: Result Comment: PERF ORMED BY: [place] [address] PATHOLOGIST [employer] MANAGER ARABELLA OCHOA M.D. Performed By: #### L IPID #### [address] Sodium [Moles/volume] in Ser um or PlasmaOrdered By: Zeny Stanley on 03-10-2024 Sodium [Moles/Vol] 142 mmol/L Normal 136-145 [facility] Comment on above: Performed By: #### C BC, CMP, T3T, A1C WTH eA, T4T, TSH3 #### [address] Thyrotropin [Units/volume] i n Serum or PlasmaOrdered By: Zeny Stanley on 03-10-2024 TSH Qn 1.25 m[IU]/L Normal 0.45-5.33 [facility] Comment on above: Result Comment: PERF ORMED BY: [place] [address] PATHOLOGIST [employer] MANAGER ARABELLA OCHOA M.D. Performed By: #### C BC, CMP, T3T, A1C WTH eA, T4T, TSH3 #### [address] Thyroxine (T4) [Mass/volume] in Serum or PlasmaOrdered By: Zeny Stanley on 03-10-2024 T4 [Mass/Vol] 10.07 ug/dL Normal 5.39-11.82 [facility] Comment on above: Performed By: #### C BC, CMP, T3T, A1C WTH eA, T4T, TSH3 #### [place] [address] [place] Triglyceride [Mass/volume] i n Serum or PlasmaOrdered By: Bradly Tanner on 03-10-2024 Triglyceride [Mass/Vol] 101 mg/dL 0-149 [facility] Comment on above: TRIG ATP III CLASSIF ICATIONTRIG less than 150 mg/dL NormalTRIG 150-199 mg/dL Borderline highTRIG 200-500 mg/dL High TRIG greater than 500 mg/dL Very highStandard traceable to the Center for Disease Conrtrol and Prevention (CDC) test method. Triiodothyronine (T3) Totalo n 03-10-2024 Triiodothyronine (T3) Total 1.28 ng/mL Normal 0.87-1.[address] [facility] Comment on above: Performed By: #### C BC, CMP, T3T, A1C WTH eA, T4T, TSH3 #### [facility] [address] Triiodothyronine (T3) [Mass/ volume] in Serum or PlasmaOrdered By: Zeny Stanley on 03-10-2024 T3 [Mass/Vol] 1.28 ng/mL 0.87-1.78 [facility] Urea nitrogen [Mass/volume] in Serum or PlasmaOrdered By: Zeny Stanley on 03-10-2024 Urea nitrogen [Mass/Vol] 16 mg/dL Normal 7-25 [facility] Comment on above: Performed By: #### C BC, CMP, T3T, A1C WTH eA, T4T, TSH3 #### [facility] [address] CHEMISTRYOrdered By: SYSTEM SYSTEM on 10-10-2023 25-hydroxyvitamin D3 [Mass/Vol] 44.0 ng/mL Normal 30.0 - 100.0 ng/mL Remisol Chem Calcium [Mass/Vol] 9.0 mg/dL Normal 8.9 - 11. 1 mg/dL [facility] Creatinine [Mass/Vol] 0.8 mg/dL Normal 0.5 - 1.3 mg/dL Remisol Chem eGFR 77 mL/min/1.73 m2 Normal >=59mL/min / 1.73 m2 Remisol Chem Calciumon 10-10-2023 Calcium [Mass/Vol] 9.0 mg/dL Normal 8.9-11.1 [facility] Comment on above: Performed By: #### 2 [id number] #### [facility] [address] [place] [address] Consent for Treatmenton 09-23 Consent for Treatment [id number]#[id number] F Normal [facility] Creatinineon 10-10-2023 Creatinine [Mass/Vol] 0.8 mg/dL Normal 0.5-1.[address] [facility] Comment on above: Performed By: #### 2 [id number] #### [facility] [address] [place] [address] Physician Orderon 10-10-2023 Physician Order [id number]#1.00TIF F Normal [facility] eGFRon 10-10-2023 eGFR 77 mL/min/1.73 m2 Normal >=59 [facility] Comment on above: Order Comment: Order added by Discern Expert. Performed By: #### 1 [id number] #### [facility] [address] [place] [address] Physician Orderon 09-25-2023 Physician Order [id number]#1.00TIF F [facility] Facesheeton 05-21-2023 Facesheet [id number]#1.00TIF F Normal [facility] Ambulatory Visit Summaryon 07-21-2022 Ambulatory Visit Summary LOVELYALFONSOCHEPE BECKMANKAY A :1950 Visit Date:05/20/2023 Ambulatory Visit Instructions Your Care Team Attending Physician - TITO AUGUSTINE, Federico Eason Primary Care Physician - Bethany AUGUSTINE, Zeny Referring Physician - Bethany AUGUSTINE, Zeny This Is Your Medications List Contact prescribing physician if questions or concerns alendronate (Fosamax 70 mg oral tablet) alprazolam (alprazolam 0.25 mg Tab) amitriptyline aspirin (aspirin 81 mg Oral EC Tab) bifidobacterium-lactobac illus (Envive oral capsule) lisinopril (lisinopril 40 mg [...] prescribing physician if questions or concerns Unchanged bifidobacterium-lactobac illus (Envive oral capsule) See instructions Per physician's [...] you for choosing us for your care. [facility] Physician Referralon 023 Physician Referral [id number]#[id number] F [facility] Office Visit (Cardiology)on 03-01-2022 Follow-up visit [...] treatment plan.; Status:Complete - Retrospective Authorization; Done: [id number] SocHx: Never smoker Tobacco Use Screening; Status:Complete; Done: [id number] Patient Instructions Please bring all medicines, vitamins, and herbal supplements with you when you come to the office. Prescriptions will not be filled unless you are compliant with your follow up appointments or have a follow up appointment scheduled as per instruction of your physician. Refills should be requested at the time of your visit. Follow up in 1 year. Chief Complaint KAY CHAVEZ is being seen for an annual [...] and are (more content not included)... Normal [employer] Tobacco Screening.on 022 Adult depression screening assessment No [facility] 250 DO Work Phone: Fall risk assessment a) No falls within the last year [facility] 250 DO Work Phone: Tobacco use status [facility] b) No M [facility] 250 DO Work Phone: PROF CHEM 8 (BAS METB)on Anion gap [Moles/Vol] 11.4 mmol/L Normal [facility] Comment on above: Performed By: #### B MP #### [facility] [address] [address] [address] Octavio Price Calcium [Mass/Vol] 9.1 mg/dL Normal 8.5-10.1 [facility] Comment on above: Performed By: #### B MP #### [facility] [address] [place], [place] [address] Dr. Octavio Price Chloride [Moles/Vol] 105 mmol/L Normal 98-107 [facility] Comment on above: Performed By: #### B MP #### [facility] [address] [address] [address] Octavio Price CO2 [Moles/Vol] 30.6 mmol/L Normal 21.0-32.0 [facility] Comment on above: Performed By: #### B MP #### [facility] [address] [address] [address] Octavio Price Creatinine [Mass/Vol] 0.75 mg/dL Normal 0.55-1.02 [facility] Comment on above: Performed By: #### B MP #### [facility] [address] [address] [address] Octavio Price EGFR-AF ERITREAN >60 Normal >=60 [facility] Comment on above: Performed By: #### B MP #### [facility] [address] [place] [address] Dr. Octavio Price EGFR-NON AF ERITREAN >60 Normal >=60 [facility] Comment on above: Performed By: #### B MP #### [facility] [address] [place] [address] Dr. Octavio Price Glucose [Mass/Vol] 84 mg/dL Normal 74-106 [facility] Comment on above: Performed By: #### B MP #### [facility] [address] [place] [address] Dr. Octavio Price Potassium [Moles/Vol] 4.0 mmol/L Normal 3.5-5.1 [facility] Comment on above: Performed By: #### B MP #### [facility] [address] [address] [address] Octavio Price Sodium [Moles/Vol] 143 mmol/L Normal 136-145 [facility] Comment on above: Performed By: #### B MP #### [facility] [address] [place] [address] Dr. Octavio Price Urea nitrogen [Mass/Vol] 13.0 mg/dL Normal 7.0-18.0 [facility] Comment on above: Performed By: #### B MP #### [facility] [address] [place] [address] Dr. Octavio Price Urea nitrogen/Creatinine [Mass ratio] 17.3 mg/mg Normal [facility] Comment on above: Performed By: #### B MP #### [facility] [address] [place], [place] [address] [address]. Octavio Price Tobacco Screening.on 021 Fall risk assessment a) No falls within the last year [facility] 250 DO Work Phone: Heart Rate Normal [facility] 250 DO Work Phone: [phone] Tobacco use status [facility] b) No M [facility] 250 DO Work Phone: CREATININEon 06-01-2019 Creatinine [Mass/Vol] 0.75 mg/dL Normal 0.50 - 1.05 [facility] Comment on above: Performed By: #### C REAT #### [address] [address] Creatinine [Mass/Vol] mg/dL Normal >60 [facility] Comment on above: Performed By: #### C REAT #### [address] [address] Result Comment: CALC ULATIONS OF ESTIMATED GFR ARE PERFORMED USING THE MDRD STUDY EQUATION FOR THE IDMS-TRACEABLE CREATININE METHODS. CLIN CHEM 2007;53:766-72 ELECTROLYTE PANELon 06-01-19 20 Anion gap [Moles/Vol] 13 mmol/L Normal 10 - 20 [facility] Comment on above: Performed By: #### E LECT #### [address] [address] Chloride [Moles/Vol] 103 mmol/L Normal 98 - 107 [facility] Comment on above: Performed By: #### E LECT #### [address] [address] HCO3 (Bld) [Moles/Vol] 29 mmol/L Normal 21 - 32 [facility] Comment on above: Performed By: #### E LECT #### [address] [address] Potassium [Moles/Vol] 4.0 mmol/L Normal 3.5 - 5.3 [facility] Comment on above: Performed By: #### E LECT #### [address] [address] Sodium [Moles/Vol] 141 mmol/L Normal 136 - 145 [facility] Comment on above: Performed By: #### E LECT #### [address] [address] UREA NITROGENon 06-01-2019 Urea nitrogen [Mass/Vol] 19 mg/dL Normal 6 - 23 [facility] Comment on above: Performed By: #### U KRUPA #### [address] [address] CNOVon 02-27-2018 CNOV Office Visit (CARDTOMI) KAY LUNA ([id number]) 1950 FDate Time Provider Afvqhdxavm36/5/18 10:30 AM CAMILO LANTIGUA During your visit today, we recorded the following information about you: Pulse Respiration Blood pressure Weight 64/minute 18/minute 150/81 80.7 kg Height 1.651 Liz Lantigua MD 02/27/2018 10:54 AM [facility] [place] [facility] Department of Cardiovascular MedicineOUTPATIENT VISIT DATE 02/27/18OUTPATIENT VISIT TYPEESTABLISHEDPRIMARY CARE PHYSICIAN:Zeny Stanley MD[address] [facility] [address]Jxtww: [phone]: [phone] COMPLAINT:Patient presents with:Established PatientHISTORY OF PRESENT ILLNESS:Kay Shelby Velazquezer is a 67 year old female with [...] [Other]) Mother- Hypertension Father- Heart Mother- Heart FatherALLERGIES:ALEKSANDER Sanchez Known AllergiesMEDICATIONS:lis inopril (ZESTRIL, PRINIVIL) 5 mg tablet TAKE 1 [...] no S3, no S4. No murmur. No carotidbruits.Respirator y: Clear to auscultation bilaterally. Good respiratory effort.GI: Soft, nontender, bowel sounds normal, no palpable hepatosplenomegalyExtrem ities: Normal pulses in distal lower extremities. Absent lower extremityedemaNeuro: Alert, cooperative with no focal deficit.Psych: Pleasant and cooperative.Skin: No rashes or wounds.CARDIOVASCULAR MEDICINE TESTING:A 12-lead electrocardiogram obtained on February 27, 2017 reveals sinus rhythm at61 bpm. There is a first-degree AV block present. There are no other changesnoted.IMPRESSION: 1. Essential hypertension, benign - ICD9: 401.1, ICD10: I10 (primarydiagnosis), fair control on current medical therapy. Suggested movinglisinopril dose to a.m.2. Pure hypercholesterolemia - ICD9: 272.0, ICD10: E78.00, currently onsimvastatin. Managed by primary care physician..3. PVC (premature ventricular contraction) - ICD9: 427.69, ICD10: I49.3, nocurrent symptoms of palpitations. There are no PVCs on her electrocardiogram.PLAN:Shelby neves current medical regimen. Change lisinopril dosing time to everymorning with first dose of carvedilol.Monitor blood pressure at home.Low-cholesterol, low-fat diet.Regular aerobic exercise.Patient will follow-up with primary care physician as this office is closing.She can follow-up with us as needed.A copy of this note will be provided to the requesting provider by [facility] or via U.S. Mail.This document was generated utilizing [employer] dictation. I have reviewed andverified that the contents of the document are accurate with the exception ofminor grammatical, spelling and punctuation errors.CONTACT INFORMATION:Thank you for allowing us to participate in the care of this very pleasantpatient. Please free to contact us if we can be of any further assistance.Camilo Lantigua MD, FACCRobert and Mariana GeDepartment of Cardiovascular MedicinePremier Health Upper Valley Medical Centerrt and Vascular Institute[address] [address]Uxrchl: [phone] Referring Provider: ZENY STANLEY [[id number]]Allergies As of Date: 02/27/2018(No Known Allergies)Date Reviewed: 02/27/2018Reviewed by: Camilo Lantigua - Fully AssessedReason for Visit: Established [...] by DYANA LANTIGUA MD on 02/27/18 Normal [facility] PROGRESSon 02-27-2018 Protein mass conc HNO ID: [id number]: Camilo Hoganervice: (none)Author Type: PhysicianType: Progress NotesFiled: 02/27/2018 10:54 AMNote Text:Heart and Vascular InstituteRobrehabilitation hospital of southern [facility] [place] and Mariana Ge Department of Cardiovascular MedicineOUTPATIENT VISIT DATE 02/27/18OUTPATIENT VISIT TYPEESTABLISHEDPRIMARY CARE PHYSICIAN:Zeny Stanley MD[address] [facility] [id number]: [phone]: [phone] COMPLAINT:Patient presents with:Established PatientHISTORY OF PRESENT ILLNESS:Kay Chavez is a 67 year old female [...] [Other]) Mother- Hypertension Father- Heart Mother- Heart FatherALLERGIES:ALLERGIE o Known AllergiesMEDICATIONS:lis inopril (ZESTRIL, PRINIVIL) 5 mg tablet TAKE 1 [...] no S3, no S4. No murmur. No carotidbruits.Respirator y: Clear to auscultation bilaterally. Good respiratory effort.GI: Soft, nontender, bowel sounds normal, no palpable hepatosplenomegalyExtrem ities: Normal pulses in distal lower extremities. Absent [...] of palpitations. There are no PVCs on herelectrocardiogram.PINA N:Continue current medical regimen. Change lisinopril dosing time to everymorning with first dose of carvedilol.Monitor blood pressure at home.Low-cholesterol, low-fat diet.Regular aerobic exercise.Patient will follow-up with primary care physician as this office isclosing. She can follow-up with us as needed.A copy of this note will be provided to the requesting provider by [facility] or via U.S. Mail.This document was generated utilizing [employer]. I have reviewedand verified that the contents of the document are accurate with theexception of minor grammatical, spelling and punctuation errors.CONTACT INFORMATION:Thank you for allowing us to participate in the care of this very pleasantpatient. Please free to contact us if we can be of any furtherassistance.Dom Lantigua MD, Sharad and Mariana Bates of Cardiovascular MedicinePremier Health Upper Valley Medical Centerrt and Vascular Institute[address] [place], [place] [address]Kozeem: [phone] Normal [facility] Vital Signs Date Time Vital Sign Value Performing Clinician Facility 03-19-2024 11:02-0400 Diastolic blood pressure 77 mm[Hg] Bradly Tanner MD Work Phone: [facility] 03-19-2024 11:02-0400 Systolic blood pressure 120 mm[Hg] Bradly Tanner MD Work Phone: [facility] 03-19-2024 10:26-0400 Body height 165.1 cm Bradly Tanner MD Work Phone: [facility] 03-19-2024 10:26-0400 Body mass index (BMI) [Ratio] 32.28 kg/m2 Bradly Tanner MD Work Phone: [facility] 03-19-2024 10:26-0400 Body weight 88 kg Bradly Tanner MD Work Phone: [facility] 03-19-2024 10:26-0400 Heart rate 60 /min Bradly Tanner MD Work Phone: [facility] 05-20-2023 15:09-0500 Blood Pressure Location Federico FRANC[facility] 05-20-2023 15:09-0500 Diastolic blood pressure 78 mm[Hg] Federico FRANC[facility] 05-20-2023 15:09-0500 Heart rate 72 /min Federico FRANCIS [facility] 05-20-2023 15:09-0500 Respiratory rate 16 /min Federico FRANCIS [facility] 05-20-2023 15:09-0500 Systolic blood pressure 128 mm[Hg] Federico MCINTOSHVarinder [facility] 02-28-2023 09:40-0400 Body height 165.1 cm Bradly Tanner MD Work Phone: [facility] 02-28-2023 09:40-0400 Body mass index (BMI) [Ratio] 31.85 kg/m2 Bradly Tanner MD Work Phone: [facility] 02-28-2023 09:40-0400 Body weight 86.82 kg Bradly Tanner MD Work Phone: [facility] 02-28-2023 09:40-0400 Diastolic blood pressure 70 mm[Hg] Bradly Tanner MD Work Phone: [facility] 02-28-2023 09:40-0400 Heart rate 72 /min Bradly Tanner MD Work Phone: [facility] 02-28-2023 09:40-0400 Systolic blood pressure 120 mm[Hg] Bradly Tanner MD Work Phone: [facility] 03-01-2022 09:41-0400 Body height 165.1 cm Zeny M Hoy Work Phone: [facility] DO Work Phone: 03-01-2022 09:41-0400 Body mass index (BMI) [Ratio] 31.78 kg/m2 Zeny M Hoy Work Phone: [facility] DO Work Phone: 03-01-2022 09:41-0400 Body surface area Derived from formula 1.94 m2 Zeny M Hoy Work Phone: [facility] DO Work Phone: 03-01-2022 09:41-0400 Body weight 86.64 kg Zeny M Hoy Work Phone: [facility] DO Work Phone: 03-01-2022 09:41-0400 Diastolic blood pressure 80 mm[Hg] Zeny Lakhwinder Hoy Work Phone: [facility] DO Work Phone: 03-01-2022 09:41-0400 Heart rate 69 /min Zeny Lakhwinder Hoy Work Phone: [facility] DO Work Phone: 03-01-2022 09:41-0400 Systolic blood pressure 130 mm[Hg] Zeny M Hoy Work Phone: [facility] DO Work Phone: 02-23-2021 09:42-0400 Body height 165.1 cm Zeny Lakhwinder Hoy Work Phone: [facility] DO Work Phone: 02-23-2021 09:42-0400 Body mass index (BMI) [Ratio] 31.62 kg/m2 Zeny Lakhwinder Hoy Work Phone: [facility] DO Work Phone: 02-23-2021 09:42-0400 Body surface area Derived from formula 1.94 m2 Zeny Lakhwinder Hoy Work Phone: [facility] DO Work Phone: 02-23-2021 09:42-0400 Body weight 86.18 kg Zeny Lakhwinder Hoy Work Phone: [facility] DO Work Phone: 02-23-2021 09:42-0400 Diastolic blood pressure 82 mm[Hg] Zeny M Hoy Work Phone: [facility] DO Work Phone: 02-23-2021 09:42-0400 Heart rate 62 /min Zeny Stanley Work Phone: [facility] DO Work Phone: 02-23-2021 09:42-0400 Systolic blood pressure 126 mm[Hg] Zeny Stanley Work Phone: [facility] DO Work Phone: Encounters Encounter Date Encounter Type Care Provider Facility Start: 12-27-2024 End: 12-27-2024 ambulatory Manolo Castrejon MD Facility:[facility] Start: 11-30-2024 End: 11-30-2024 ambulatory Ananth Valentine Facility:[facility] Start: 11-24-2024 End: 11-24-2024 ambulatory Ananth Valentine Facility:[facility] Start: 11-11-2024 End: 11-11-2024 ambulatory Neptali Islas Facility:[facility] Start: 10-27-2024 End: 10-27-2024 ambulatory Neptali Islas Facility:[facility] Start: 10-19-2024 End: 10-19-2024 ambulatory Ananth Valentine Facility:[facility] Start: 10-14-2024 End: 10-14-2024 ambulatory Neptali Islas Facility:[facility] Start: 10-12-2024 End: 10-12-2024 ambulatory Huma Shannon Facility:[facility] Start: 10-12-2024 End: 10-12-2024 Patient encounter procedure Huma Shannon [facility] Start: 10-07-2024 End: 10-07-2024 ambulatory Neptali Islas Facility:[facility] Start: 09-29-2024 End: 09-29-2024 ambulatory Neptali Islas Facility:[facility] Start: 09-23-2024 End: 09-23-2024 ambulatory Ananth Valentine Facility:[facility] Start: 09-15-2024 End: 09-15-2024 ambulatory Ananth Valentine Facility:[facility] Start: 03-19-2024 End: 03-19-2024 Office outpatient visit 15 minutes Bradly Tanner MD Work Phone: [facility] Comment on above: Palpitation (Primary Dx); Paroxysmal atrial tachycardia ([facility]); Premature ventricular contractions; Primary hypertension; Hyperlipidemia, unspecified hyperlipidemia type; BMI 32.0-32.9,adult Start: 03-19-2024 End: 03-19-2024 ambulatory [facility] Start: 03-10-2024 End: 03-10-2024 Patient encounter procedure MD Zeny Stanley Work Phone: [facility] Work Phone: Start: 03-10-2024 End: 03-10-2024 ambulatory MD Zeny Stanley Work Phone: [facility] Work Phone: Start: 10-10-2023 ambulatory Huma Shannon Facility :[facility] Start: 10-10-2023 End: 10-10-2023 Patient encounter procedure Huma Shannon [facility] Start: 05-20-2023 End: 05-21-2023 ambulatory Federico FRANCIS Facility:[facility] Start: 05-20-2023 End: 05-20-2023 Patient encounter procedure Federico FRANCIS [facility] Start: 05-05-2023 ambulatory Huma Shannon Facility:[facility] Start: 02-28-2023 End: 02-28-2023 Office outpatient visit 15 minutes Bradly Tanner MD Work Phone: [facility] Comment on above: Palpitation (Primary Dx); Paroxysmal atrial tachycardia; Premature ventricular contractions; Class 1 obesity; Primary hypertension; Hyperlipidemia, unspecified hyperlipidemia type Start: 10-31-2022 ambulatory SHANE Lazo ty:[facility] Start: 10-15-[address] ZENY Jimenez Facili ty:[facility] Start: 10-01-2022 End: 10-02-2022 ambulatory ANA KHALIL . Facility:[facility] Start: 07-31-2022 End: 08-01-2022 ambulatory RAY WHELANJG Facility:[facility] Start: 03-20-2022 End: 03-21-2022 ambulatory RAY Pierce [facility] Facility:[facility] Start: 03-08-2022 Rx Renewal Zeny Stanley Work Phone: [facility] DO Work Phone: Start: 03-01-[address] Bradly Tanner Facility:[id number] Start: 03-01-2022 Office outpatient vi sit 15 minutes Zeny Stanley Work Phone: [facility] DO Work Phone: Start: 02-19-2022 [...] End: 10-04-2021 Patient encounter procedure Huma Shannon [facility] Start: 02-23-2021 Patient encounter procedure Zeny Stanley Work Phone: [facility] DO Work Phone: Start: 02-27-2018 End: 03-13-2018 Patient encounter CAMILO LANTIGUA [facility] Procedures Date Procedure Procedure Detail Performing [...] Treatment Date Care Activity Detail Author Start: 10-09-2025 Screening for osteoporosis Bone Density Scan [facility] Start: 03-04-2025 End: 03-04-2025 Patient encounter procedure 03/04/2025 10:30 AM EDT Office Visit [facility] [address] [id number] Bradly Tanner MD 703 [facility] [address], [address] [address] [facility] Start: 02-17-2025 End: 03-19-2025 Alanine aminotransferase [Enzymatic activity/volume] in Serum or Plasma by With P-5'-P Alanine Aminotransferase Lab Routine Hyperlipidemia, unspecified hyperlipidemia type Expected: 02/17/2025, Expires: 03/19/2025 [facility] Work Phone: Comment on above: Expected: 02/17/2025, Expires: Start: 02-17-2025 End: 03-19-2025 Aspartate aminotransferase [Enzymatic activity/volume] in Serum or Plasma by With P-5'-P Aspartate Aminotransferase Lab Routine Hyperlipidemia, unspecified hyperlipidemia type Expected: 02/17/2025, Expires: 03/19/2025 [facility] Work Phone: Comment on above: Expected: 02/17/2025, Expires: Start: 02-17-2025 End: 03-19-2025 Basic metabolic 2000 panel - Serum or Plasma Basic Metabolic Panel Lab Routine Primary hypertension Expected: 02/17/2025, Expires: 03/19/2025 [facility] Work Phone: Comment on above: Expected: 02/17/2025, Expires: Start: 02-17-2025 End: 03-19-2025 Lipid 1996 panel - Serum or Plasma Lipid Panel Lab Routine Hyperlipidemia, unspecified hyperlipidemia type Expected: 02/17/2025, Expires: 03/19/2025 [facility] Work Phone: Comment on above: Expected: 02/17/2025, Expires: Start: 08-13-2024 Screening for malignant neoplasm of colon [facility] Start: 03-19-2024 End: 03-19-2024 Patient encounter procedure 03/19/2024 10:20 AM EDT Office Visit [facility] [address] [id number] Bradly Tanner MD 703 [facility] 2, [address] [id number] [facility] Start: 01-25-2024 COVID-19 Vaccine ( season) COVID-19 Vaccine ( season) [facility] Start: 01-25-2024 Influenza vaccination Influenza Vaccine (#1) [facility] Start: 02-28-2023 FUV, Provider: Bradly Tanner, Status: Pen, Time: 9:20 AM FUV, Provider: Bradly Tanner, Status: Pen, Time: 9:20 AM [facility] [employer] 250 DO Work Phone: Start: 01-24-2023 Influenza vaccination Influenza Vaccine (#1) [facility] Start: 07-12-2022 Screening for osteoporosis Bone Density Scan [facility] Start: 04-22-2022 COVID-19 Vaccine (4 - Pfizer series) COVID-19 Vaccine (4 - Pfizer series) [facility] Start: 03-01-2022 FUV, Provider: Bradly Tanner, Status: Pen, Time: 9:30 AM FUV, Provider: Bradly Tanner, Status: Pen, Time: 9:30 AM [facility] Work [facility]: Start: 2010 RSV High Risk: (Elderly (60+) or Population) (1 - Risk 60-74 years 1-dose series) RSV High Risk: (Elderly (60+) or Population) (1 - Risk 60-74 years 1-dose series) [facility] Start: 1990 Screening for malignant neoplasm of breast Mammogram [facility] Start: 02-27-1972 DTaP/Tdap/Td Vaccines (1 - Tdap) DTaP/Tdap/Td Vaccines (1 - Tdap) [facility] Start: 02-27-1968 Diabetes mellitus screening Diabetes Screening [facility] Start: 02-27-1968 Hepatitis C screening Hepatitis C Screening [facility] Start: 1950 Lipid panel Lipid Panel [facility] Start: 1950 Medicare Annual Wellness Visit Medicare Annual Wellness Visit (AWV) [facility] Start: 1950 Screening for malignant neoplasm of colon [facility] Start: 1950 Yearly Adult Physical Yearly Adult Physical [facility] Immunizations Immunization Date Immunization Notes Care Provider Harper storm 03-26-2023 influenza virus vaccine, unspecified formulation Federico FRANCIS [facility] 03-26-2022 Flu vaccine, quadrivalent, high-dose, preservative free, age 65y+ (FLUZONE) Bradly Tanner MD Work Phone: [facility] Work Phone: 03-26-2022 influenza virus vaccine, unspecified formulation Bradly Tanner MD Work Phone: [facility] Work Phone: 02-25-2022 Pfizer COVID-19 Vac Bivalent 30 MCG/0.3ML Intramuscular Suspension Zeny Stanley Work Phone: -[facility] 250 DO Work Phone: Comment on above: Series: 05-11-2021 SARS-CoV-2 (COVID-19 ) mRNA BNT-162b2 vax Federico DAYNAL [facility] 03-19-2021 Influenza, Seasonal, Quadrivalent, Adjuvanted Bradly Tanner MD Work Phone: [facility] Work Phone: 08-04-2020 zoster vaccine recombinant Bradly Tanner MD Work Phone: [facility] Work Phone: 07-19-2020 SARS-CoV-2 (COVID-19 ) mRNA BNT-162b2 vax Federico MCINTOSHL [facility] Comment on above: Result Comment: 2022: [id number] 06-28-2020 SARS-CoV-2 (COVID-19 ) mRNA BNT-162b2 vax Federico MCINTOSHL [facility] Comment on above: Result Comment: 2022: [id number] 04-11-2020 zoster vaccine recombinant Bradly Tanner MD Work Phone: [facility] Work Phone: 04-21-2019 pneumococcal polysaccharide vaccine, 23 valent Bradly Tanner MD Work Phone: [facility] Work Phone: 03-26-2019 influenza virus vaccine, unspecified formulation Zeny Stanley Work Phone: [facility] 250 DO Work Phone: 03-09-2019 influenza, high dose seasonal, preservative-free Bradly Tanner MD Work Phone: [facility] Work Phone: 08-13-2018 pneumococcal polysaccharide vaccine, 23 valent Bradly Tanner MD Work Phone: [facility] Work Phone: 05-26-2018 pneumococcal conjuga te vaccine, 13 valent Zeny Stanley Work Phone: [place] [address] DO Work Phone: 04-08-2018 influenza, injectabl e, quadrivalent, preservative free Bradly Tanner MD Work Phone: [facility] Work Phone: 05-26-2017 pneumococcal polysaccharide vaccine, 23 valent Zeny Stanley Work Phone: [place] [address] DO Work Phone: 04-04-2015 influenza, seasonal, injectable, preservative free Bradly Tanner MD Work Phone: [facility] Work Phone: 04-01-2014 influenza, injectabl e, quadrivalent, contains preservative Bradly Tanner MD Work Phone: [facility] Work Phone: 03-19-2013 influenza, seasonal, injectable Bradly Tanner MD Work Phone: [facility] Work Phone: Payers Date Payer Category Payer Medicare [id number] 2024 Private Health Insurance [id number] 2024 Private Health Insurance [id number] 2024 Self-pay [id number] 2024 Unknown [id number] 2021 Blue Cross Blue Shie ld Managed Care [facility] [id number] 2021 Unknown 2015 Medicare [id number]. [id number] 1959 Medicare [id number] 1959 Unknown [id number] 1950 Unknown [id number] 2.16.840.1.738250.3.579. 2.356 1950 Unknown [id number] 2.16.840.1.449624.3.579. 2.593 1950 Unknown [id number] 2.16.840.1.244361.3.579. 2.593 1950 Unknown [id number] 2.16.840.1.981816.3.579. 2.593 1950 Unknown [id number] 2.16.840.1.312941.3.579. 2.593 1950 Unknown [id number] 2.16.840.1.654549.3.579. 2.593 1950 Unknown [id number] 2.16.840.1.202480.3.579. 2.593 1950 Unknown [id number] 2.16.840.1.971379.3.579. 2.593 1950 Unknown [id number] 2.16.840.1.494142.3.579. 2.593 1950 Unknown [id number] 2.16.840.1.402284.3.579. 2.593 1950 Unknown [id number] 2.16.840.1.819582.3.579. 2.593 1950 Unknown [id number] 2.16.840.1.358120.3.579. 2.593 1950 Unknown [id number] 2.16.840.1.546543.3.579. 2.727 1950 Unknown [id number] 2.16.840.1.903101.3.579. 2.727 1950 Unknown [id number] 2.16.840.1.221704.3.579. 2.1244 1950 Unknown [id number] 2.16.840.1.432935.3.579. 2.727 1950 Unknown [id number] 2.16.840.1.475771.3.579. 2.718 1950 Unknown [id number] 2.16.840.1.097705.3.579. 2.718 1950 Unknown [id number] 2.16.840.1.442200.3.579. 2.718 1950 Unknown [id number] 2.16.840.1.882093.3.579. 2.718 1950 Unknown [id number] 2.16.840.1.628782.3.579. 2.718 1950 Unknown [id number] 2.16.840.1.266308.3.579. 2.718 1950 Unknown [id number] 2.16.840.1.113867.3.579. 2.718 1950 Unknown [id number] 2.16.840.1.256308.3.579. 2.718 1950 Unknown [id number] 2.16.840.1.581962.3.579. 2.718 1950 Unknown [id number] 2.16.840.1.941316.3.579. 2.718 1950 Unknown [id number] 2.16.840.1.112115.3.579. 2.196 Medicare Medicare [id number] Unknown [id number] 2.16.840.1.370725.3.579. 2.531 Social History Date Type Detail Facility Start: 02-28-2023 End: 03-19-2024 Alcohol use Alcohol use -[facility] 250 DO Work Phone: Start: 07-23-2021 End: 05-20-2023 Tobacco smoking status Never smoked tobacco (finding) [facility] Tobacco smoking status Never [facility] Start: 02-28-2023 End: 03-19-2024 Sex Assigned At Female [facility] Start: 02-28-2023 Tobacco use and exposure Smoke less tobacco non-user [facility] Work Phone: Start: 02-28-2023 End: 03-19-2024 Alcohol intake Ex-drinker (finding) [facility] Work Phone: Start: 1950 Sex Assigned At Not on file [facility] Work Phone: Start: 02-18-2023 End: 10-25-2024 Exposure to SARS-CoV-2 (event) Not sure [facility] Start: 1950 Sex Assigned At Female [facility] Sexual Orientation [facility] Start: 08-13-2018 Sex Female (finding) [facility] Functional Status Date Assessment Result Facility 05-20-2023 Functional Status N/A [facility] Clinical Notes 11-30-2021 to 11-24-2024 Bradly Tanner MD - 03/19/2024 10:20 AM EDTPatient InstructionsAttachmentsBradly Tanner MD - 02/28/2023 9:20 AM EDTPatient Instructions Note Date & Type Note Facility 11-24-2024 Note Sclerotherapy Sclerotherapy is a procedure that is done to make varicose veins and spider veins look better and it helps to relieve aching, swelling, cramping, and pain in the legs. Varicose veins are veins that have become enlarged, bulging, and twisted due to a damaged valve that causes blood to collect (pool) in the veins. Spider veins are small varicose [...] You may need more than one treatment to close a vein all the way. The number of veins treated in one session depends on the size and location of the veins, and on your overall medical condition. Tell a health care provider about: ? Any allergies you have. ? All medicines you are taking, including vitamins, herbs, eye drops, creams, and akyt-wko-hauwnkx medicines. ? Any bleeding problems you have. ? Any surgeries you have had. ? Any medical conditions you have. ? Whether you are or may be . What are the risks? Your health care provider will talk with you about risks. These may include: ? Infection. ? Bleeding or blood clots. ? Allergic reactions to medicines or to the chemicals being used, which are called sclerosing agents. ? Larger treated veins becoming lumpy or hard. This may last for several months before getting better. ? Small sores (ulcers) forming at the injection site. ? Red streaking in the groin area or bruising around the injection site. ? Brown lines or spots at the injection site. These usually disappear within 3 to 6 months, but in rare cases they can be permanent. What happens before the procedure? Medicines Ask your health care provider about: ? Changing or stopping your regular medicines. These include any diabetes medicines or blood thinners you take. ? Taking medicines such as aspirin and ibuprofen. These medicines can thin your blood. Do not take them unless your health care provider tells you to. ? Taking qviz-nyc-kdjfmrc medicines, vitamins, herbs, and supplements. Tests ? You may have an ultrasound of the affected area to check for blood clots and to check blood flow. ? In rare cases, you may have an X-ray procedure to check how blood flows through your veins (angiogram). For an angiogram, a dye is injected to highlight your veins on X-rays. General instructions ? Do not use lotions or creams on your legs before the procedure unless your health care provider approves. ? Follow instructions from your health care provider about what you may eat and drink. ? Do not use any products that contain nicotine or tobacco before the procedure. These products include cigarettes, chewing tobacco, and vaping devices, such as e-cigarettes. If you need help quitting, ask your health care provider. ? Ask your health care provider what steps will be taken to help prevent infection. These steps may include: ? Removing hair at the injection site. ? Washing skin with a soap that kills germs. What happens during the procedure? ? The treatment area will be cleaned. ? A small, thin needle is used to inject a chemical (sclerosant) into your varicose or spider veins. The sclerosant will irritate the lining of the vein and cause the vein to close below where the needle was put in. You may feel some stinging, burning, or irritation. ? The injection may be repeated for more than one varicose or spider vein. ? After the procedure, the area around where the needle was put in will be wrapped with elastic bandages. The procedure may vary among health care providers and hospitals. What can I expect after the procedure? ? Your blood pressure, heart rate, breathing rate, and blood oxygen level will be monitored until you leave the hospital or clinic. ? The area around the injection site will be wrapped with elastic bandages. If there is bleeding, the bandages may be changed. ? After the treatment, you will be able to drive yourself home. ? Wear compression stockings as told by your health care provider. These stockings help to prevent blood clots and reduce swelling in your legs. Contact a health care provider if: ? You have more redness, swelling, or pain around any injection sites. ? You have more fluid or blood coming from any injection sites. ? Any injection sites feel warm to the touch. ? You have pus or a bad smell coming from any injection sites. ? You have a fever. Get help right away if: ? You have leg pain that gets worse when you walk. ? You have redness or swelling in your leg that is getting worse. ? You have trouble breathing. ? You have chest pain. These symptoms may be an emergency. Get help right away. Call 911. ? Do not wa (more content not included)... [facility] 10-25-2024 Note Radiology Sclerotherapy Sclerotherapy is a procedure that is done to make varicose veins and spider veins look better and it helps to relieve aching, swelling, cramping, and pain in the legs. Varicose veins are veins that have become enlarged, bulging, and twisted due to a damaged valve that causes blood to collect (pool) in the veins. Spider veins are small varicose [...] You may need more than one treatment to close a vein all the way. The number of veins treated in one session depends on the size and location of the veins, and on your overall medical condition. Tell a health care provider about: ? Any allergies you have. ? All medicines you are taking, including vitamins, herbs, eye drops, creams, and bjze-ryr-enejdvj medicines. ? Any bleeding problems you have. ? Any surgeries you have had. ? Any medical conditions you have. ? Whether you are or may be . What are the risks? Your health care provider will talk with you about risks. These may include: ? Infection. ? Bleeding or blood clots. ? Allergic reactions to medicines or to the chemicals being used, which are called sclerosing agents. ? Larger treated veins becoming lumpy or hard. This may last for several months before getting better. ? Small sores (ulcers) forming at the injection site. ? Red streaking in the groin area or bruising around the injection site. ? Brown lines or spots at the injection site. These usually disappear within 3 to 6 months, but in rare cases they can be permanent. What happens before the procedure? Medicines Ask your health care provider about: ? Changing or stopping your regular medicines. These include any diabetes medicines or blood thinners you take. ? Taking medicines such as aspirin and ibuprofen. These medicines can thin your blood. Do not take them unless your health care provider tells you to. ? Taking lwzb-nun-nzubbxo medicines, vitamins, herbs, and supplements. Tests ? You may have an ultrasound of the affected area to check for blood clots and to check blood flow. ? In rare cases, you may have an X-ray procedure to check how blood flows through your veins (angiogram). For an angiogram, a dye is injected to highlight your veins on X-rays. General instructions ? Do not use lotions or creams on your legs before the procedure unless your health care provider approves. ? Follow instructions from your health care provider about what you may eat and drink. ? Do not use any products that contain nicotine or tobacco before the procedure. These products include cigarettes, chewing tobacco, and vaping devices, such as e-cigarettes. If you need help quitting, ask your health care provider. ? Ask your health care provider what steps will be taken to help prevent infection. These steps may include: ? Removing hair at the injection site. ? Washing skin with a soap that kills germs. What happens during the procedure? ? The treatment area will be cleaned. ? A small, thin needle is used to inject a chemical (sclerosant) into your varicose or spider veins. The sclerosant will irritate the lining of the vein and cause the vein to close below where the needle was put in. You may feel some stinging, burning, or irritation. ? The injection may be repeated for more than one varicose or spider vein. ? After the procedure, the area around where the needle was put in will be wrapped with elastic bandages. The procedure may vary among health care providers and hospitals. What can I expect after the procedure? ? Your blood pressure, heart rate, breathing rate, and blood oxygen level will be monitored until you leave the hospital or clinic. ? The area around the injection site will be wrapped with elastic bandages. If there is bleeding, the bandages may be changed. ? After the treatment, you will be able to drive yourself home. ? Wear compression stockings as told by your health care provider. These stockings help to prevent blood clots and reduce swelling in your legs. Contact a health care provider if: ? You have more redness, swelling, or pain around any injection sites. ? You have more fluid or blood coming from any injection sites. ? Any injection sites feel warm to the touch. ? You have pus or a bad smell coming from any injection sites. ? You have a fever. Get help right away if: ? You have leg pain that gets worse when you walk. ? You have redness or swelling in your leg that is getting worse. ? You have trouble breathing. ? You have chest pain. These symptoms may be an emergency. Get help right away. Call 911. (more content not included)... [facility] 10-19-2024 Note Radiology Sclerotherapy Sclerotherapy is a procedure that is done to make varicose veins and spider veins look better and it helps to relieve aching, swelling, cramping, and pain in the legs. Varicose veins are veins that have become enlarged, bulging, and twisted due to a damaged valve that causes blood to collect (pool) in the veins. Spider veins are small varicose [...] You may need more than one treatment to close a vein all the way. The number of veins treated in one session depends on the size and location of the veins, and on your overall medical condition. Tell a health care provider about: ? Any allergies you have. ? All medicines you are taking, including vitamins, herbs, eye drops, creams, and tchs-lxf-zoxesjo medicines. ? Any bleeding problems you have. ? Any surgeries you have had. ? Any medical conditions you have. ? Whether you are or may be . What are the risks? Your health care provider will talk with you about risks. These may include: ? Infection. ? Bleeding or blood clots. ? Allergic reactions to medicines or to the chemicals being used, which are called sclerosing agents. ? Larger treated veins becoming lumpy or hard. This may last for several months before getting better. ? Small sores (ulcers) forming at the injection site. ? Red streaking in the groin area or bruising around the injection site. ? Brown lines or spots at the injection site. These usually disappear within 3 to 6 months, but in rare cases they can be permanent. What happens before the procedure? Medicines Ask your health care provider about: ? Changing or stopping your regular medicines. These include any diabetes medicines or blood thinners you take. ? Taking medicines such as aspirin and ibuprofen. These medicines can thin your blood. Do not take them unless your health care provider tells you to. ? Taking mkor-wgc-hfmhfte medicines, vitamins, herbs, and supplements. Tests ? You may have an ultrasound of the affected area to check for blood clots and to check blood flow. ? In rare cases, you may have an X-ray procedure to check how blood flows through your veins (angiogram). For an angiogram, a dye is injected to highlight your veins on X-rays. General instructions ? Do not use lotions or creams on your legs before the procedure unless your health care provider approves. ? Follow instructions from your health care provider about what you may eat and drink. ? Do not use any products that contain nicotine or tobacco before the procedure. These products include cigarettes, chewing tobacco, and vaping devices, such as e-cigarettes. If you need help quitting, ask your health care provider. ? Ask your health care provider what steps will be taken to help prevent infection. These steps may include: ? Removing hair at the injection site. ? Washing skin with a soap that kills germs. What happens during the procedure? ? The treatment area will be cleaned. ? A small, thin needle is used to inject a chemical (sclerosant) into your varicose or spider veins. The sclerosant will irritate the lining of the vein and cause the vein to close below where the needle was put in. You may feel some stinging, burning, or irritation. ? The injection may be repeated for more than one varicose or spider vein. ? After the procedure, the area around where the needle was put in will be wrapped with elastic bandages. The procedure may vary among health care providers and hospitals. What can I expect after the procedure? ? Your blood pressure, heart rate, breathing rate, and blood oxygen level will be monitored until you leave the hospital or clinic. ? The area around the injection site will be wrapped with elastic bandages. If there is bleeding, the bandages may be changed. ? After the treatment, you will be able to drive yourself home. ? Wear compression stockings as told by your health care provider. These stockings help to prevent blood clots and reduce swelling in your legs. Contact a health care provider if: ? You have more redness, swelling, or pain around any injection sites. ? You have more fluid or blood coming from any injection sites. ? Any injection sites feel warm to the touch. ? You have pus or a bad smell coming from any injection sites. ? You have a fever. Get help right away if: ? You have leg pain that gets worse when you walk. ? You have redness or swelling in your leg that is getting worse. ? You have trouble breathing. ? You have chest pain. These symptoms may be an emergency. Get help right away. Call 911. (more content not included)... [facility] 10-14-2024 Note PROCEDURE: US Inject ion Varicose Vein Multiple HISTORY: I83.813 Pre-operative Diagnosis: CEAP class C2 venous insufficiency with pain, tenderness, edema and incompetent branch saphenous vein(s), chronic venous insufficiency right leg secondary to venous incompetence Post-operative Diagnosis: CEAP class C2 venous insufficiency with pain, tenderness, edema and incompetent branch saphenous vein(s), chronic venous insufficiency right leg secondary to venous incompetence Procedure Performed: 1. Ultrasound-guided microfoam chemical ablation with Varithenaregistered. 2. Intraoperative ultrasound guidance Physician: Neptali Islas M.D. Anesthesia: None INDICATION : 74 year old female. Symptoms including lower extremity pain, heaviness, dilated bulging veins, swelling for many years despite conservative medical therapy including medical compression stockings, exercise and analgesics. Prior procedures include endovenous laser ablation and microfoam chemical ablation. Multiple incompetent varicosities of the right leg. Duplex scan showed reflux and enlarged diameters up to 4 mm. The patient underwent informed consent including management options where the complications of infection, bleeding, pain, and skin injury were discussed. Particular attention was spent discussing thrombus extension and deep vein thrombosis as well as the possibility of pulmonary embolus and treatment with oral or injectable blood thinners. PROCEDURE: The patient walked to the procedure room. All applicable staff donned appropriate apparel. A procedure timeout was performed to confirm correct patient, correct extremity, correct procedure, and correct room set-up including presence of all applicable supplies, devices, and drugs. A duplex ultrasound, performed by myself confirmed the location and incompetence of branch saphenous varicosities and their course was marked on the skin together with the dilated tributaries. The extent of treatment of the vein and the associated varicosities was determined through ultrasound mapping. The skin was prepped and then punctured with a butterfly needle and advanced under ultrasound guidance. The Varithenaregistered canister was activated and the canister was primed and purged as required in the instructions for use. Varithenaregistered was drawn into a sterile syringe. Varithenaregistered was slowly administered at 0.5-1.0 cc/second with close observation by ultrasound of its course in the vessels. Total volume utilized was: 15 mL (5 mL into a 4 mm varicosity distal medial lower leg; 5 mL into a 4 mm varicosity proximal medial lower leg; 3 mL into a 3 mm varicosity distal medial upper leg; 2 mL into a 3 mm varicosity lateral to the knee). Following administration of Varithenaregistered the leg was elevated and the patient was asked to repeatedly dorsiflex the ankle to limit flow of Varithenaregistered into perforating veins. Once appropriate spasm had been confirmed in the treated veins, the vascular catheter was removed from the leg and light pressure was applied over the puncture site for hemostasis. The common femoral and deep superficial veins were then evaluated for flow and compressibility prior to dressing placement. The lower extremity was kept elevated at 45 degrees above the horizontal and cording material was applied over the saphenous segments and tributaries to allow for eccentric compression over the target vessels including the targeted saphenous vein(s). A multilayer dressing was applied consisting of foam pads, coban and thigh-high 20-30 mm Hg compression elastic support hose were placed on the patient. The leg was lowered only after compression had been applied and the patient was immediately ambulatory. The patient ambulated 10 minutes under supervision and was without apparent concerns at time of release. Post-care instructions include advising patient to keep post-treatment bandages in place and dry for 48 hours, avoid extended periods of inactivity, avoid heavy exercise for one week, wear compression stockings on the treated leg continuously for two weeks, to walk daily for 10 minutes over the next month. The patient was instructed to take an anti-inflammatory medicine as needed and to follow up for color duplex scan of the Saphenous veins, the treated branch saphenous varicosities, the adjacent deep veins, and additional treatment within 7 days. PERSONNEL: Kip Thao RN Final Dictated by: Neptali Islas MD Dictated DT/TM: 10/14/24 1:11 Signed (Electronic Signature): Neptali Islas MD 10/14/24 1:35 pm Technologist: [facility] 10-04-2024 Note Radiology Sclerotherapy Sclerotherapy is a procedure that is done to make varicose veins and spider veins look better and it helps to relieve aching, swelling, cramping, and pain in the legs. Varicose veins are veins that have become enlarged, bulging, and twisted due to a damaged valve that causes blood to collect (pool) in the veins. Spider veins are small varicose [...] You may need more than one treatment to close a vein all the way. The number of veins treated in one session depends on the size and location of the veins, and on your overall medical condition. Tell a health care provider about: ? Any allergies you have. ? All medicines you are taking, including vitamins, herbs, eye drops, creams, and ncip-khm-nuesqoz medicines. ? Any bleeding problems you have. ? Any surgeries you have had. ? Any medical conditions you have. ? Whether you are or may be . What are the risks? Your health care provider will talk with you about risks. These may include: ? Infection. ? Bleeding or blood clots. ? Allergic reactions to medicines or to the chemicals being used, which are called sclerosing agents. ? Larger treated veins becoming lumpy or hard. This may last for several months before getting better. ? Small sores (ulcers) forming at the injection site. ? Red streaking in the groin area or bruising around the injection site. ? Brown lines or spots at the injection site. These usually disappear within 3 to 6 months, but in rare cases they can be permanent. What happens before the procedure? Medicines Ask your health care provider about: ? Changing or stopping your regular medicines. These include any diabetes medicines or blood thinners you take. ? Taking medicines such as aspirin and ibuprofen. These medicines can thin your blood. Do not take them unless your health care provider tells you to. ? Taking xgil-rqs-ouhuoxq medicines, vitamins, herbs, and supplements. Tests ? You may have an ultrasound of the affected area to check for blood clots and to check blood flow. ? In rare cases, you may have an X-ray procedure to check how blood flows through your veins (angiogram). For an angiogram, a dye is injected to highlight your veins on X-rays. General instructions ? Do not use lotions or creams on your legs before the procedure unless your health care provider approves. ? Follow instructions from your health care provider about what you may eat and drink. ? Do not use any products that contain nicotine or tobacco before the procedure. These products include cigarettes, chewing tobacco, and vaping devices, such as e-cigarettes. If you need help quitting, ask your health care provider. ? Ask your health care provider what steps will be taken to help prevent infection. These steps may include: ? Removing hair at the injection site. ? Washing skin with a soap that kills germs. What happens during the procedure? ? The treatment area will be cleaned. ? A small, thin needle is used to inject a chemical (sclerosant) into your varicose or spider veins. The sclerosant will irritate the lining of the vein and cause the vein to close below where the needle was put in. You may feel some stinging, burning, or irritation. ? The injection may be repeated for more than one varicose or spider vein. ? After the procedure, the area around where the needle was put in will be wrapped with elastic bandages. The procedure may vary among health care providers and hospitals. What can I expect after the procedure? ? Your blood pressure, heart rate, breathing rate, and blood oxygen level will be monitored until you leave the hospital or clinic. ? The area around the injection site will be wrapped with elastic bandages. If there is bleeding, the bandages may be changed. ? After the treatment, you will be able to drive yourself home. ? Wear compression stockings as told by your health care provider. These stockings help to prevent blood clots and reduce swelling in your legs. Contact a health care provider if: ? You have more redness, swelling, or pain around any injection sites. ? You have more fluid or blood coming from any injection sites. ? Any injection sites feel warm to the touch. ? You have pus or a bad smell coming from any injection sites. ? You have a fever. Get help right away if: ? You have leg pain that gets worse when you walk. ? You have redness or swelling in your leg that is getting worse. ? You have trouble breathing. ? You have chest pain. These symptoms may be an emergency. Get help right away. Call 911. (more content not included)... [facility] 09-29-2024 Note PROCEDURE: US Inject ion Varicose Vein Multiple HISTORY: Varicose veins of bilateral lower extremities with pain Pre-operative Diagnosis: CEAP class C3 venous insufficiency with pain, tenderness, edema and incompetent branch saphenous vein(s), chronic venous insufficiency left leg secondary to venous incompetence Post-operative Diagnosis: CEAP class C3 venous insufficiency with pain, tenderness, edema and incompetent branch saphenous vein(s), chronic venous insufficiency left leg secondary to venous incompetence Procedure Performed: 1. Ultrasound-guided microfoam chemical ablation with Varithenaregistered. 2. Intraoperative ultrasound guidance Physician: Neptali Islas M.D. Anesthesia: None INDICATION : 74 year old female. Symptoms including lower extremity varicose veins, swelling, heaviness for many years despite conservative medical therapy including medical compression stockings, exercise and analgesics. Prior procedures include endovenous laser ablation and microfoam chemical ablation.. Remote history of stripping of proximal left great saphenous vein. Multiple incompetent varicosities of the left leg. Duplex scan showed reflux and enlarged diameters up to 5 mm. The patient underwent informed consent including management options where the complications of infection, bleeding, pain, and skin injury were discussed. Particular attention was spent discussing thrombus extension and deep vein thrombosis as well as the possibility of pulmonary embolus and treatment with oral or injectable blood thinners. PROCEDURE: The patient walked to the procedure room. All applicable staff donned appropriate apparel. A procedure timeout was performed to confirm correct patient, correct extremity, correct procedure, and correct room set-up including presence of all applicable supplies, devices, and drugs. A duplex ultrasound, performed by myself confirmed the location and incompetence of branch saphenous varicosities and their course was marked on the skin together with the dilated tributaries. The extent of treatment of the vein and the associated varicosities was determined through ultrasound mapping. The skin was prepped and then punctured with a butterfly needle and advanced under ultrasound guidance. The Varithenaregistered canister was activated and the canister was primed and purged as required in the instructions for use. Varithenaregistered was drawn into a sterile syringe. Varithenaregistered was slowly administered at 0.5-1.0 cc/second with close observation by ultrasound of its course in the vessels. Total volume utilized was: 15 mL (5 mL into a 5 mm varicosity proximal medial lower leg; 8 mL into a 4 mm varicosity mid lateral lower leg; 2 mL intrarenal 4 mm varicosity lateral to the knee). Following administration of Varithenaregistered the leg was elevated and the patient was asked to repeatedly dorsiflex the ankle to limit flow of Varithenaregistered into perforating veins. Once appropriate spasm had been confirmed in the treated veins, the vascular catheter was removed from the leg and light pressure was applied over the puncture site for hemostasis. The common femoral and deep superficial veins were then evaluated for flow and compressibility prior to dressing placement. The lower extremity was kept elevated at 45 degrees above the horizontal and cording material was applied over the saphenous segments and tributaries to allow for eccentric compression over the target vessels including the targeted saphenous vein(s). A multilayer dressing was applied consisting of foam pads, coban and thigh-high 20-30 mm Hg compression elastic support hose were placed on the patient. The leg was lowered only after compression had been applied and the patient was immediately ambulatory. The patient ambulated 10 minutes under supervision and was without apparent concerns at time of release. Post-care instructions include advising patient to keep post-treatment bandages in place and dry for 48 hours, avoid extended periods of inactivity, avoid heavy exercise for one week, wear compression stockings on the treated leg continuously for two weeks, to walk daily for 10 minutes over the next month. The patient was instructed to take an anti-inflammatory medicine as needed and to follow up for color duplex scan of the Saphenous veins, the treated branch saphenous varicosities, the adjacent deep veins, and additional treatment within 7 days. PERSONNEL: Kip Thao RN, Ghazala Ledesma RDMS, RVT Final Dictated by: Neptali Islas MD Dictated DT/TM: 09/29/24 2:41 Signed (Electronic Signature): Neptali Islas MD 09/29/24 2:44 pm Technologist: [facility] 03-19-2024 History of Present illness Narrative Subjective Kay Chavez is a 74 y.o. female Chief Complaint Follow-up HPI Patient is here for follow-up and management for previous evaluation for palpitation with documentation PACs and PVCs, hypertension and hyperlipidemia. Since last time I saw her she reports she feels well. She has not had any palpitation. Her home heart rate monitoring device fails to demonstrate any arrhythmia. Recent laboratory data noted and reviewed with her. Assessment 1. Previous complaint of palpitation with documentation of both PACs and a brief episode of paroxysmal atrial tachycardia. None recently. Home monitoring failed to demonstrate any arrhythmia. Patient appears completely asymptomatic 2. Hypertension well controlled 3. Mild hypokalemia. Corrected. 4. Hyperlipidemia on treatment and controlled 5. [...] I will see her back in 1 year. I did review her recent lab with her Review of Systems All other systems reviewed and are negative. Vitals: 03/19/24 1026 03/19/24 1102 BP: 160/90 120/77 BP Location: Right arm Left arm Patient Position: Sitting Sitting Pulse: 60 Weight: 88 kg (194 lb) Height: 1.651 m (5' 5 ) Objective Physical Exam Constitutional: Appearance: Normal appearance. HENT: Nose: Nose normal. Neck: Vascular: No carotid bruit. Cardiovascular: Rate and Rhythm: Normal rate. Pulses: Normal pulses. Heart sounds: Normal heart sounds. Pulmonary: Effort: Pulmonary effort is normal. Abdominal: General: Bowel sounds are normal. Palpations: Abdomen is soft. Musculoskeletal: General: Normal range of motion. Cervical back: Normal range of motion. Right lower leg: No edema. Left lower leg: No edema. Skin: General: Skin is warm and dry. Neurological: General: No focal deficit present. Mental Status: She is alert. Psychiatric: Mood and Affect: Mood normal. Behavior: Behavior normal. Thought Content: Thought content normal. Judgment: Judgment normal. Allergies Patient has no known allergies. Current Medications Current Outpatient Medications: ALPRAZolam (Xanax) 0.25 mg tablet, Take 1 tablet (0.25 mg) by mouth 3 times a day as needed., Disp: , Rfl: amitriptyline (Elavil) 75 mg tablet, Take 1 tablet (75 mg) by mouth once daily at bedtime., Disp: , Rfl: lisinopril 40 mg tablet, Take 1 tablet (40 mg) by mouth once daily., Disp: , Rfl: magnesium oxide (Mag-Ox) 400 mg (241.3 mg magnesium) tablet, TAKE 2 TABLETS BY MOUTH EVERY DAY, Disp: 180 tablet, Rfl: 3 metoprolol succinate XL (Toprol-XL) 50 mg 24 hr tablet, TAKE 2 TABLETS BY MOUTH EVERY DAY, Disp: 180 tablet, Rfl: 3 simvastatin (Zocor) 20 mg tablet, Take 1 tablet (20 mg) by mouth once daily at bedtime., Disp: , Rfl: spironolactone (Aldactone) 25 mg tablet, Take 1 tablet (25 mg) by mouth once daily., Disp: 90 tablet, Rfl: 3 Assessment/Plan 1. Palpitation 2. Paroxysmal atrial tachycardia (CMS-HCC) Follow Up In Cardiology 3. Premature ventricular contractions Follow Up In Cardiology 4. Primary hypertension 5. Hyperlipidemia, unspecified hyperlipidemia type 6. BMI 32.0-32.9,adult Scribe Attestation By signing my name below, I, Huma Downey LPN , Scribe attest that this documentation has been prepared under the direction and in the presence of Bradly Tanner MD. Provider Attestation - Scribe documentation All medical record entries made by the Scribe were at my direction and personally dictated by me. I have reviewed the chart and agree that the record accurately reflects my personal performance of the history, physical exam, discussion and plan. documented in this encounter [facility] Work Phone: 03-19-2024 Instructions Huma Benitez LPN - 03/19/2024 10:20 AM EDT Please bring all medicines, vitamins, and herbal supplements with you when you come to the office. Prescriptions will not be filled unless you are compliant with your follow up appointments or have a follow up appointment scheduled as per instruction of your physician. Refills should be requested at the time of your visit. BMI was above normal measurement. Current weight: 88 kg (194 lb) Weight change since last visit (-) denotes wt loss 2.6 lbs Weight loss needed to achieve BMI 25: 44.1 Lbs Weight loss needed to achieve BMI 30: 14.1 Lbs Provided instructions on dietary changes Provided instructions on exercise. The following attachments cannot be sent through Care Everywhere.DASH Diet (Albanian)documented in this encounter [facility] Work Phone: 12-26-2023 Note Chief Complaint consultation for skin lesion [...] virus vaccine, inactivated 03/26/2023 Recorded SARS-CoV-2 (COVID-19) [id number] 02/25/2022 Recorded SARS-CoV-2 (COVID-19) mRNA BNT-162b2 vax 05/11/2021 Recorded SARS-CoV-2 (COVID-19) mRNA BNT-162b2 vax 07/19/2020 Recorded 2023-05-09: TPV70 SARS-CoV-2 (COVID-19) mRNA BNT-162b2 vax 06/28/2020 Recorded 2023-05-09: TPV70 [facility] Comment on above: Result Comment: Elec tronically Signed By: TITO AUGUSTINE, Federico Chilel\Date and Time Signed: 05/20/23 15:33 EST 02-28-2023 History of Present illness Narrative Subjective Kay Chavez is a 73 y.o. female Chief [...] unspecified hyperlipidemia type documented in this encounter [facility] Work Phone: 02-28-2023 Instructions Nina [...] up 9 month documented in this encounter [facility] Work Phone: 10-01-2022 Note CONSULTATION [...] our patients to inform us about any pmpe-hoi-qvwwpiw medications or herbal remedies/nutritional supplements/alternative remedies. 2. [...] options with their primary care provider. [facility] 07-31-2022 Note PROCEDURE: XR FOOT L T [...] by: ANANTH VALENTINE Date: 2022-07-31 10:34 [facility] 03-20-2022 Note PROCEDURE: XR FOOT L T [...] favoring chronic pseudoarticulation. Electronically authenticated by: NEPTALI ILSAS Date: 2022-03-20 21:30 [facility] 02-19-2022 Note PROCEDURE: XR FOOT L T [...] by: ANANTH VALENTINE Date: 2022-02-19 18:22 [facility] 01-22-2022 Note PROCEDURE: XR FOOT L T [...] metatarsal fracture/stress fracture. Electronically authenticated by: NEPTALI ISLAS Date: 2022-01-22 10:35 [facility] 01-02-2022 Note PROCEDURE: XR FOOT L T [...] by: ANANTH VALENTINE Date: 2022-01-02 16:27 [facility] 12-28-2021 Note PROCEDURE: XR FOOT L T [...] site preventing healing. Electronically authenticated by: NEPTALI ILSAS Date: 2021-12-28 07:39 [facility] 11-30-2021 Note PROCEDURE: XR FOOT L T [...] fifth metatarsal fracture. Electronically authenticated by: NEPTALI ISLAS Date: 2021-11-30 08:48 [facility] Evaluation + Plan note No data available for this section [facility] Evaluation note Diagnosis Palpitation- Primary Palpitations Paroxysmal atrial tachycardia Paroxysmal supraventricular tachycardia Premature ventricular contractions Other premature beats Class 1 obesity Primary hypertension Unspecified essential hypertension Hyperlipidemia, unspecified hyperlipidemia type documented in this encounter [facility] Work Phone: Evaluation noteNo assessment information available [facility] Work Phone: Evaluation note* Diagnosis Palpitation- Primary Palpitations Paroxysmal atrial tachycardia ([facility]-HCC) Paroxysmal supraventricular tachycardia Premature ventricular contractions Other premature beats Primary hypertension Unspecified essential hypertension Hyperlipidemia, unspecified hyperlipidemia type BMI 32.0-32.9,adult documented in this encounter [facility] Work Phone: History of Present [...] will see her back in 1 year [facility] [address] DO Work [...] year plan to repeat her lab work [facility] [address] DO Work Phone: Hospital Discharge instructions No data available for this section [facility] No data available for this section [facility] Reason for referral (narrative)* Consultation (Routine) - Authorized Specialty Diagnoses / Procedures Referred By Corrie rubio Referred To Contact Cardiology Diagnoses Paroxysmal atrial tachycardia Premature ventricular contractions Procedures Follow Up In Cardiology Bradly Tanner MD [address] [facility] [address] [place] [address] Referral ID Status Reason Start Date Expiration Date V isits Requested Visits Authorized [id number] Authorized 02/28/2023 08/27/2023 1 1 [facility] Work Phone: Summary Purpose Family History No [...] Status:Active Advance Directives No Advanced Directives Records Found Advance Directive Response Recorded Date/ Time Advance Directives No June 12:05pm Chief Complaint KAY CHAVEZ is being seen for an annual follow-up of.KAY CHAVEZ is being seen for an annual follow-up of. Chief Complaint and Reason for Visit Chief Complaint i10 r53.83 e78.00 e7 8.5 Additional Source Comments INFORMATION SOURCE (unrecogn ized section and content) DATE CREATED AUTHOR 03/27/2018 [facility] DATE CREATED AUTHOR AUTHOR'S ORGANIZ ATION 08/13/2019 [place] [facility] DATE CREATED AUTHOR AUTHOR'S ORGANIZ ATION 03/01/2022 [facility] DATE CREATED AUTHOR AUTHOR'S ORGANIZ ATION 03/02/2022 [facility] DATE CREATED AUTHOR AUTHOR'S ORGANIZ ATION 10/10/2022 [facility] DATE CREATED AUTHOR AUTHOR'S ORGANIZ ATION 10/12/2023 [facility] DATE CREATED AUTHOR AUTHOR'S ORGANIZ ATION 03/19/2024 [facility] DATE CREATED AUTHOR AUTHOR'S ORGANIZ ATION 03/21/2024 [facility] DATE CREATED AUTHOR AUTHOR'S ORGANIZ ATION 10/23/2024 [facility] DATE CREATED AUTHOR AUTHOR'S ORGANIZ ATION 12/03/2024 [facility] DATE CREATED AUTHOR AUTHOR'S ORGANIZ ATION 01/09/2025 [facility] Reason for Visit (unrecogniz ed section and content) Reason Comments Annual Exam 1yr Reason Comments Follow-up 1 yr Specialty Diagnoses / Procedures Referred By Contac t Referred To Contact Cardiology Diagnoses Paroxysmal atrial tachycardia (CMS-HCC) Premature ventricular contractions Procedures Follow Up In Cardiology Bradly Tanner MD [address] [place] [address] Phone: tel: fax: Referral ID Status Reason Start Date Expiration Date Visits Re quested Visits Authorized [id number] Closed 02/28/2023 08/27/2023 1 1 Care Teams (unrecognized sec tion and content) [facility] Relationship Specialty Start Date End Date Zeny Stanley MD [address] [phone] PCP - General 06/01/19 Team Status: Active Member Role Status Dates Zeny Stanley MD Primary Care Provider Active Team Status: Inactive Member Role Status Dates Zeny Stanley MD Primary Care Provide r, Attending Provider Active Start: March 10, 2024 End: March 10, 2024 Bradly Tanner MD Referring Provider Active Start: March 10, 2024 End: March 10, 2024 [facility] Relationship Specialty Start Date End Date Zeny Stanley MD [address] [place] [address] PCP - General 06/01/19 Goals (unrecognized section and content) Goals may be documented in a n alternate section FOR RECORDS PERTAINING TO PATIENTS WHO ARE [...] BE BASED ON THE PRIMARY CLINICAL RECORDS. [facility], [facility]. provides no warranty or guarantee of the accuracy or completeness of information in this document.
[2025-02-01 14:22] LABS: Glucose Urine UA NEGATIVE (NEGATIVE)
[2025-02-01 14:29] LABS: Cast Seen? SEEN #/LPF (NONE SEEN); Crystals Seen? Seen #/HPF (None Seen)
[2025-02-01 14:30] LABS: Urine Culture Indicated ALREADY ORDERED
== END 2025-02-01 13:46 | disposition home or self-care (01) ==
LOC: LAB 13:46
PROVIDERS: PCP Family Medicine; Visit Provider Family Medicine
DX: N39.0 Urinary tract infection, site not specified (principal)
CPT/HCPCS: 81001; 87086

== ENCOUNTER 2025-03-18 11:13 | Outpatient (OUT) | payer MEDICARE, OTHER, SELFPAY ==
--- OUTSIDE RECORDS SUMMARY | 2025-03-04 10:30 | XMS_ITS | Encounter Summary ---
Author Organization [facility] Address [address] [place] [address] Phone Care Team Providers Care Fondant Puff Maker Name Role Phone Familia Stanley MD Primary Care Provider [phone] Reason for Referral * Consultation (Routine) - AuthorizedSpecialtyDiagnoses / ProceduresReferred By ContactReferred To ContactCardiology Diagnoses Premature ventricular contractions Procedures Follow Up In Cardiology Robi Tanner MD [address] [place] [address], [address] [address] Phone: tel: fax: Robi Tanner MD [address] [place], [place] [address], [address] [address] Phone: tel: fax: Referral IDStatusReasonStart DateExpiration DateVisits RequestedVisits [id number]/[id number]/10/202611 Reason for Visit * ReasonCommentsAnnual Exam1 year follow up for palpitations * Consultation (Routine) - AuthorizedSpecialtyDiagnoses / ProceduresReferred By ContactReferred To ContactCardiology Diagnoses Palpitation Procedures Follow Up In Cardiology Robi Tanner MD [address] [place] [address] 2, [address] [address] Phone: tel: fax: Robi Tanner MD [address] [place] [address] 2, [address] [address] Phone: tel: fax: Referral IDStatusReasonStart DateExpiration DateVisits RequestedVisits [id number]/25/202410/25/202511 Encounter Details DateTypeDepartmentCare Team (Latest Contact Info)Pslnssayyyb94/10/2025 10:30 AM EDTOffice Visit [address] [phone] Robi Tanner MD [address] [address], [address] [address] Premature ventricular contractions (Primary Dx); Palpitation; Paroxysmal atrial tachycardia; Primary hypertension; Hyperlipidemia, unspecified hyperlipidemia type; BMI 32.0-32.9,adult; Never smoked tobacco; Essential (primary) hypertension Discharge Disposition: Home Social History Tobacco UseTypesPacks/DayYears UsedDateSmoking Tobacco: NeverSmokeless Tobacco: NeverAlcohol UseStandard Drinks/WeekCommentsNot Currently0 (1 standard drink = 0.6 oz pure alcohol)PHQ-2AnswerDate RecordedPatient Health Questionnaire-2 Score 3CommentsUnknownSex and Gender InformationValueDate Recorded Sex Assigned at BirthNot on fileLegal FmtKajrmr76/26/2022 3:19 AM ESTGender IdentityNot on fileSexual OrientationNot on filedocumented as of this encounter Last Filed Vital Signs Vital SignReadingTime TakenCommentsBlood Xeilksgi289/7403/04/2025 10:32 AM EDT Pnpzi584803/04/2025 10:32 AM EDTTemperature--Respiratory Rate--Oxygen Saturation-- Inhaled Oxygen Concentration--Jrfesv83.9 kg (191 lb 9.6 oz)03/04/2025 10:32 AM KHJMuioqb282.6 cm (5' 4 )03/04/2025 10:32 AM EDTBody Mass Index32.8903/04/2025 10:32 AM EDTdocumented in this encounter Functional Status * BPAnswerDate of ZvhmzjdrpsFrrpxa740/7403/04/2025 10:32 AM Judi Gudino RN * PulseAnswerDate of RmieuukyzbRhddru1325/10/2025 10:32 AM Judi Gudino RN * Communicable Disease ScreeningQuestionAnswerDate of AssessmentAuthorDo you have any of the following new or worsening symptoms?None of these03/04/2025 10:23 AM Esha Rogers documented as of this encounter Patient Instructions * Patient Instructions* Nina Stewart LPN - 03/04/2025 10:30 AM EDT Please bring all medicines, vitamins, and herbal supplements with you when you come to the office. Prescriptions will not be filled unless you are compliant with your follow up appointments or have a follow up appointment scheduled as per instruction of your physician. Refills should be requested at the time of your visit. BMI was above normal measurement. Current weight: 86.9 kg (191 lb 9.6 oz) Weight change since last visit (-) denotes wt loss -2.4 lbs Weight loss needed to achieve BMI 25: 46.3 Lbs Weight loss needed to achieve BMI 30: 17.2 Lbs Provided instructions on dietary changes Provided instructions on exercise. * Attachments The following attachments cannot be sent through Care Everywhere. * Diet and health (Portuguese) documented in this encounter Progress Notes * Robi Tanner MD - 03/04/2025 10:30 AM EDT Chief Complaint Patient presents with Annual Exam 1 year follow up for palpitations Subjective Kay Newton is a 75 y.o. female HPI Patient here for follow-up continue management for history of previous evaluation for palpitation documentation of PACs and 1 brief episode of paroxysmal atrial fibrillation, hypertension and hyperlipidemia. Since last time I saw her she denies any cardiac complaint of chest pain, palpitation, light headedness, dizziness or syncope. Her recent lab work noted and reviewed with her. She reports no arrhythmia. She does have a Kardia mobile with no recent documentation of any arrhythmia. Assessment 1. Previous complaint of palpitation with documentation of both PACs and a brief episode of paroxysmal atrial tachycardia. None recently. Patient has Kardia mobile which failed to demonstrate any arrhythmia. Patient appears completely asymptomatic 2. Hypertension well controlled with lisinopril and metoprolol 3. Mild hypokalemia. Corrected. Potassium 4.6 4. Hyperlipidemia on treatment and controlled on simvastatin. LDL 78 5. Mild obesity with BMI of 32 6. PVCs which I feel benign based [...] did review her recent lab with her and we will repeat her lab work prior to next office visit Review of Systems All other systems reviewed and are negative. Vitals: 03/04/25 1032 BP: 112/74 BP Location: Left arm Patient Position: Sitting Pulse: 78 Weight: 86.9 kg (191 lb 9.6 oz) Height: 1.626 m (5' 4 ) Objective Physical Exam Constitutional: Appearance: Normal [...] no known allergies. Current Medications Current Outpatient Medications Medication Instructions ALPRAZolam (Xanax) 0.25 mg tablet 1 tablet, 3 times daily PRN amitriptyline (Elavil) 75 mg tablet 1 tablet, Nightly lisinopril 40 mg, Daily magnesium oxide (MAG-OX) 800 mg, oral, Daily metoprolol succinate XL (TOPROL-XL) 50 mg, oral, 2 times daily simvastatin (Zocor) 20 mg tablet 1 tablet, Nightly spironolactone (ALDACTONE) 25 mg, oral, Daily Assessment/Plan 1. Premature ventricular contractions Follow Up In Cardiology Basic Metabolic Panel Basic Metabolic Panel 2. Palpitation Follow Up In Cardiology metoprolol succinate XL (Toprol-XL) 50 mg 24 hr tablet 3. Paroxysmal atrial tachycardia 4. Primary hypertension spironolactone (Aldactone) 25 mg tablet Basic Metabolic Panel Basic Metabolic Panel 5. Hyperlipidemia, unspecified hyperlipidemia type Alanine Aminotransferase Aspartate Aminotransferase Lipid Panel Alanine Aminotransferase Aspartate Aminotransferase Lipid Panel 6. BMI 32.0-32.9,adult 7. Never smoked tobacco 8. Essential (primary) hypertension metoprolol succinate XL (Toprol-XL) 50 mg 24 hr tablet Scribe Attestation By signing my name below, Nina Billings LPN, Scribe attest that this documentation has been prepared under the direction and in the presence of MD Ashanti. Provider Attestation - Scribe documentation All medical record entries made by the Scribe were at my direction and personally dictated by me. Ihave reviewed the chart and agree that the record accurately reflects my personal performance of the history, physical exam, discussion and plan. documented in this encounter Plan of Treatment DateTypeDepartmentCare Team (Latest Contact Info)Qowvyyyxqpu85/09/2026 10:30 AM EDTOffice Visit [facility] [address] [phone] Robi Tanner MD [address] [facility], [facility] [address] [place] [address] NameTypePriorityAssociated DiagnosesOrder ScheduleAlanine AminotransferaseLab Routine Hyperlipidemia, unspecified hyperlipidemia type Expected: 03/04/2026, Expires: 06/02/2026spartate AminotransferaseLabRoutine Hyperlipidemia, unspecified hyperlipidemia type Expected: 03/04/2026, Expires: 06/02/2026asic Metabolic PanelLabRoutine Premature ventricular contractions Primary hypertension Expected: 03/04/2026, Expires: 06/02/2026Lipid PanelLabRoutine Hyperlipidemia, unspecified hyperlipidemia type Expected: 03/04/2026, Expires: 06/02/2026documented as of this encounter Visit Diagnoses Diagnosis Premature ventricular contractions- Primary Other premature beats Palpitation Palpitations Paroxysmal atrial tachycardia Paroxysmal supraventricular tachycardia Primary hypertension Unspecified essential hypertension Hyperlipidemia, unspecified hyperlipidemia type BMI 32.0-32.9,adult Never smoked tobacco Essential (primary) hypertension Unspecified essential hypertension documented in this encounter Additional Health Concerns AssessmentNoted TimeA fall risk assessment has been completed for the patient 03/04/2025 10:31 AM EDTdocumented as of this encounter Care Teams Team MemberRelationshipSpecialtyStart DateEnd Familia Stanley MD [address] [phone] PCP - General06/01/19documented as of this encounter
--- OUTSIDE RECORDS SUMMARY | 2025-03-18 06:45 | XMS_ITS ---
Author Organization [facility] [place] Address [address] [place] [address] Care Team Providers Care Social Science Research Assistant Name Role Phone Jam Stanley Primary Care Provider [phone] REASON FOR VISIT US Medications Medication SIG (Take, Route, Frequency, Duration) Notes Start Date End Date Status Bactrim DS 800-160 MG 1 tablet Orally bid; Durat ion: 10 days 5Active Encounters Encounter Location Date Provider Diagnosis [facility] [address] [place] [phone] 03/18/2025 Jam Stanley UTI (urinary tract infection) [...] Notes * Ahsan NEWTONOB:08/1949 (75 yo F)Acc No.[id number]:03/18/2025 Patient:?CLIVEVero BECKMANKay :1950???Age:75 Y???Sex:FemalePhone:[phone] Address:[address] [place] [address], [place] [address] * Refills Start Bactrim DS Tablet, 800-160 [...] Codes: * true * Date:?Generated for Printing/Faxing/eTransmitting on:?03/18/2025 11:18 AM EDT
--- OUTSIDE RECORDS SUMMARY | 2025-03-18 11:18 | XMS_ITS | Clinical Summary ---
Author Organization [facility] Address [address] [place] [address] Care Team Providers Care Rehab Assistant Name Role Phone Unavailable Primary Care Provider Unavailabl e Social History Tobacco UseTypesPacks/DayYears UsedDateSmoking Tobacco: Never Assessed CommentsUnknownSex and Gender InformationValueDate RecordedSex Assigned at Not on fileLegal WaiLlnqng23/29/2022 10:20 PM EDTGender IdentityNot on file Sexual OrientationNot on file Last Filed Vital Signs Vital SignReadingTime TakenCommentsBlood Knvaitpu032/8010 1:46 PM EDT Pulse--Temperature--Respiratory Rate--Oxygen Wjeyhtrros19%03/16/2019 1:48 PM EDT Inhaled Oxygen Concentration--Igqnpu96.6 kg (180 lb)03/16/2019 1:44 PM EDTHeight 165.1 cm (5' 5 )03/16/2019 1:42 PM EDTBody Mass Index29.9503/16/2019 1:42 PM EDT Plan of Treatment Not on file
--- OUTSIDE RECORDS SUMMARY | 2025-03-18 11:18 | XMS_ITS | Clinical Summary ---
Author Organization [employer] tem Address [id number] [address] [place] [address] Care Team Providers Care Cartridge Filler Name Role Phone Familia Stanley MD Primary Care Provider [phone] Allergies No known active allergies Medications MedicationSigDispense QuantityRefillsLast FilledStart DateEnd DateStatus alendronate (FOSAMAX) 70 mg tablet Take 70 mg by mouth once a week.Active ALPRAZolam (XANAX) 0.25 mg tablet Take 0.25 mg by mouth as needed.11/07/2014ctive amitriptyline (ELAVIL) 75 mg tablet Take 75 mg by mouth daily.Active aspirin 81 mg Take 81 mg by mouth daily.Active lisinopril (PRINIVIL,ZESTRIL) 10 mg tablet Take 10 mg by mouth daily.111Active simvastatin (ZOCOR) 20 mg tablet Take 20 mg by mouth daily.03/12/2019Active propranolol (INDERAL) 20 mg tablet Take 0.5 tablets (10 mg total) by mouth 3 (three) times a day. 120 tablet Active Active Problems ProblemNoted DateDiagnosed DateSupraventricular wpnmykyzasy52/11/2019 PalpitationsLightheadednessDyspnea on exertionHypertensionAnxietyAltered mental status Social History Tobacco UseTypesPacks/DayYears UsedDateSmoking Tobacco: NeverSmokeless Tobacco: NeverAlcohol UseStandard Drinks/WeekCommentsYes0 (1 standard drink = 0.6 oz pure alcohol)OCCASSIONALLYChildcareAnswerDate NraxtysrHicilowlfRigpzpa73/30/2019 EmploymentAnswerDate OstnewpbBmajqzohmxQllwkyl02/30/2019Purpose - LifeAnswerDate RecordedPurpose and direction in spblPdbarqa19/11/2021CommentsUnknownSex and Gender InformationValueDate RecordedSex Assigned at BirthNot on fileLegal NacVnqpxa69/30/2019 1:37 PM EDTGender IdentityNot on fileSexual OrientationNot on file Last Filed Vital Signs Vital SignReadingTime TakenCommentsBlood Pahdgfph566/7004/05/2019 9:35 AM EST Pfbaq913904/05/2019 9:35 AM ESTTemperature--Respiratory Rate--Oxygen Saturation-- Inhaled Oxygen Concentration--Kwhehk75.6 kg (182 lb)04/05/2019 9:35 AM ESTHeight 165.1 cm (5' 5 )04/05/2019 9:35 AM ESTBody Mass Index30.29106/05/2018 9:35 AM EST Plan of Treatment Health MaintenanceDue DateLast DoneCommentsDepression Qlzuorenk08/04/1962Tobacco Brvvlsfym87/04/1962DTaP,Tdap and Td Vaccines (1 - Tdap)1969Zoster (Shingles) Vaccine (1 of 2)02/27/2000Fall Risk Vajhrncje68/04/2015Influenza Qkrzzsp0001/24/2025 Medical Devices Not on file Insurance Care Teams Team MemberRelationshipSpecialtyStart DateEnd Date Familia Stanley MD PCP - GeneralFamily Xghoevya18/30/19
--- OUTSIDE RECORDS SUMMARY | 2025-03-18 11:19 | XMS_ITS | CCD ---
Author Organization [facility] Care Team Providers Care Hr Leader Name Role Phone CAMILO LANTIGUA Unavailable Unavailab ZENY Guzmán Unavailable Unavailable Zeny Stanley Unavailable Unavailable Unavailable Zeny Stanley Primary Care Physician Ciro, Dr. Abdullahi Referring Unavaila ezio Tanner, Dr. Abdullahi Attending Unavaila Zeny Agarwal Primary Care Unavailable SHARMIN ., SHANE Attending Unavailable HALKER .SHANE Admitting Unavailable HOY ., DR MOURA Primary Care Unavailable HOY ., DR MOURA Primary Care Unavailable LAKSHALEXANDER ., NARWESLY Attending Toma vailable REMI ., ANA Admitting [...] Unavailable RUPA, DR NEPTALI Eason Consulting Unavailable REQUESTDR NONE LISTED Primary Care Unavaila CRISTIAN Parrish Admitting Unavailable CRISTIAN ROBERTO Consulting Unavailable RAY WEINSTEIN Admitting Unavailable RAY WEINSTEIN Attending Unavailable REQUEST, NONE LISTED Primary Care Unavaila ble WEST, DR ANANTH Danielson Consulting Unavailable RAY WEINSTEIN Consulting Unavailable RAY WEINSTEIN Attending Unavailable RAY WEINSTEIN Admitting Unavailable REQUEST, NONE LISTED Primary Care Unavaila ezio ISLAS, DR NEPTALI Eason Consulting Unavailable RAY WEINSTEIN Consulting Unavailable TRABOULSSI, DR ABDULLAHI Consulting Unavailab [...] Zeny Stanley MD Primary Care Provider [phone]( [phone] Huma Shannon Admitting Unavailable Huma Shannon Attending Unavailable Huma Shannon Referring Unavailable Federico FRANCIS Attending Unavailable Zeny Stanley Referring Unavailable MD Zeny Stanley Primary Care Provider [phone] MD Zeny Stanley Attending Provider MD Bradly Tanner Referring Provider Huma Shannon Admitting Unavailable Huma Shannon Attending Unavailable Huma Shannon Referring Unavailable Neptali Islas Attending Unavailable Neptali Islas Admitting Unavailable Ananth Valentine V. Primary Care Unavailable Neptali Islas Attending Unavailable Neptali Islas Admitting Unavailable Ananth Valentine V. Primary Care Unavailable Dennis, Ananth Sebastian Primary Care Unavailable Neptali Islas Attending Unavailable Neptali Islas Admitting Unavailable Dennis, Ananth Sebastian Primary Care Unavailable Ananth Valentine V. Admitting Unavailable Ananth Valentine V. Attending Unavailable Ananth Valentine V. Primary Care Unavailable Ananth Valentine V. Attending Unavailable Ananth Valentine V. Admitting Unavailable Ananth Valentine V. Primary Care Unavailable Ananth Valentine V. Admitting Unavailable Ananth Valentine V. Attending Unavailable Neptali Islas Attending Unavailable Ananth Valentine V. Primary Care Unavailable Neptali Islas Admitting Unavailable Neptali Islas Attending Unavailable Neptali Islas Admitting Unavailable Ananth Valentine V. Primary Care Unavailable Ananth Valentine V. Primary Care Unavailable Ananth Valentine V. Admitting Unavailable Ananth Valentine V. Attending Unavailable Neptali Islas Attending Unavailable Neptali Islas Admitting Unavailable Ananth Valentine V. Primary Care Unavailable Lucía AUGUSTINE, Manolo Dan Attending Unavailable Zeny Stanley MD Primary Care Provider [phone] Zeny Stanley MD Attending Provider Bradly Tanner MD Attending Provider Zeny Stanley MD Primary Care Provider 1( [phone] Zeny Stanley Primary Care Unavailable Zeny Stanley Attending Unavailable Zeny Stanley Admitting Unavailable Zeny Stanley Primary Care Unavailable Zeny Stanley Attending Unavailable Ciro Mofcohaf Referring Unavailable Zeny Stanley Admitting Unavailable Zeny Stanley Primary Care Unavailable Trabelliot, Mourhaf Admitting Unavailable Bradly Tanner Attending Unavailable BRADLY TANNER Attending Unavailable BRADLY TANNER Referring Unavailable ZENY STANLEY Primary Care Unavailable BRADLY TANNER Attending Unavailable FATOUMATA TANNERF Referring Unavailable ZENY STANLEY Primary Care Unavailable Medications Current Medications MedicationDrug Class(es)DatesSig (Normalized)Sig (Original)alendronic acid 70 mg oral tablet (9 sources)BisphosphonateStart: 62-29-5464otst 1 tablet by mouth every week Fosamax 70 mg oral tablet 70 mg = 1 tab(s), Oral, qWeek, Refills(s) 0, Prophylaxis Start Date: 06/16/18 Status: Ordered Repeat number: 1 End: 12-29-2783kjvrktoqxkm (Fosamax) 70 mg tablet Take 1 tablet (70 mg) by mouth every 7 days. 03/19/2024 Discontinued (Med List Cleanup)ALPRAZolam 0.25 mg oral tablet (9 sources)BenzodiazepineStart: 49-54-0875skbi 1 tablet by mouth three times daily as needed for anxietyalprazolam 0.25 mg Tab 0.25 mg = 1 tab(s), Oral, TID, PRN as needed for anxiety, Refills(s) 0 StartDate: 05/09/23 Status: Ordered Repeat number: 1amitriptyline hydrochloride 75 mg oral tablet (10 sources)Tricyclic AntidepressantStart: 74-88-3134pkki 75 mg by mouth once daily at bedtimeamitriptyline 75 mg, Oral, Once a day (at bedtime), Refills(s) 0, Anxiety Start Date: 06/17/18 Status: Ordered Repeat number: 1aspirin 81 mg delayed release oral tablet (4 sources)Platelet Aggregation Inhibitor, Nonsteroidal Anti-inflammatory Drug Start: 68-19-9453dbbt 1 tablet by mouth once dailyaspirin 81 mg Oral EC Tab 81 mg = 1 tab(s), Oral, Daily, Refills(s) 0 Start Date: 05/20/23 Status: Ordered Repeat number: 1Start: 01-67-7390vdvj 81 mg by mouth once dailyaspirin 81 mg, Oral, Daily, Refills(s) 0, Blood Thinner Start Date: 06/16/18 Status: Ordered Calcium (1 source)Phosphate Binder, CalciumStart: 80-02-6455ohvj 1250 mg by mouth once dailycalcium calcium, 1,250 mg, Oral, Daily Start Date: 06/16/18 Status: Ordered calcium citrate 950 mg oral tablet (1 source)Start: 97-77-5424nmhq 1 mg by mouth twice dailycalcium (as calcium citrate) 200 mg oral tablet mg tab(s), Oral, BID, Refills(s) 0 Start Date: Status: OrderedEnvive oral capsule (4 sources)Start: 84-72-4514rjjp 8 capsules by mouth onceEnvive oral capsule See Instructions, 8 cap(s), Refill(s) 0, samples given to patient (Rx), Per kingston garcia's instructions. Start Date: 07/24/21 Status: Ordered Quantity: 8.0 Unit: cap(s) Repeat number: 1Start: 06-91-0063oqlm 8 capsules by mouth onceEnvive oral capsule See Instructions, 8 cap(s), Refill(s) 0, samples given to patient (Rx), Per physician's instructions. Start Date: 07/24/21 Status: Orderedlisinopril 40 mg oral tablet (11 sources)Angiotensin Converting Enzyme InhibitorStart: 21-33-5112yrkg 1 tablet by mouth once dailylisinopril 40 mg Tab 40 mg = 1 tab(s), Oral, Daily, Refills(s) 0 Start Date: 05/09/23 Status: Ordered Repeat number: 1Start: 11-16-2021 End: 13-15-2036bplb 1 tablet by mouth once dailylisinopril 20 mg tablet Take 1 tablet (20 mg) by mouth once daily. 11/16/2021 03/19/2024 Discontinued (Med List Cleanup)Start: 17-93-5834thgm 5 mg by mouth once dailylisinopril 5 mg, Oral, Daily, Refills(s) 0, High blood pressure Start Date: 06/17/18 Status: Orderedtake 1 tablet by mouth once dailyLisinopril 10 MG Oral Tablet TAKE 1 TABLET DAILY DIRECTED. Quantity: 0 Refills: 0 Ordered: 23-Feb-2021 DO ActiveMAGNESIUM GLUCONATE (1 source)Start: 62-84-8714hwtr 1 mg by mouth twice dailyMag-G mg, Oral, BID, Refills(s) 0 Start Date: 10/14/19 Status: Orderedmagnesium oxide 400 mg oral tablet (7 sources)Start: 86-81-0896jrqc 2 tablets by mouth once dailymagnesium oxide (Mag-Ox) 400 mg (241.3 mg magnesium) tablet Indications: Paroxysmal atrial tachycardia , Premature ventricular contractions TAKE 2 TABLETS BY MOUTH EVERY DAY 180 tablet 3 04/29/2024 ActiveStart: 07-90-4041suba 2 tablets by mouth once dailymagnesium oxide (Mag-Ox) 400 mg (241.3 mg magnesium) tablet Indications: Paroxysmal atrial tachycardia (CMS-HCC) , Premature ventricular contractions TAKE 2 TABLETS BY MOUTH EVERY DAY 180 tablet 3 04/14/2023 ActiveStart: 51-26-3570xfbd 2 tablets by mouth once dailymagnesium oxide (Mag-Ox) 400 mg (241.3 mg magnesium) tablet Indications: Paroxysmal atrial tachycardia , Premature ventricular contractions Take 2 tablets (800 mg) by mouth once daily. 180 tablet 3 02/28/2023 Active End: 00-61-0430tgjs 2 tablets by mouth once dailymagnesium oxide (Mag-Ox) 400 mg (241.3 mg magnesium) tablet Take 2 tablets (800 mg) by mouth once daily. 0 02/28/2023 Discontinued (Reorder)take 2 tablets by mouth once dailyMagnesium Oxide 400 MG Oral Tablet TAKE 2 TABLET Daily Quantity: 180 Refills: 3 Ordered: 7-Nbu-2854PsymkgxbjeBradly Tanner MD Ohrzma05 hr metoprolol succinate 50 mg extended release oral tablet (13 sources)beta-Adrenergic BlockerStart: 05-28-2024 End: 75-08-2718tyec 1 tablet by mouth twice dailymetoprolol succinate XL (Toprol-XL) 50 mg 24 hr tablet Indications: Palpitation , Essential (primary) hypertension Take 1 tablet (50 mg) by mouth 2 times a day. 180 tablet 3 03/04/2025 03/04/2026 ActiveStart: 00-51-8499rzva 1 tablet by mouth twice daily Metoprolol tartrate 50 mg Tab 50 mg = 1 tab(s), Oral, BID, Refills(s) 0 Start Date: 05/09/23 Status: Ordered Repeat number: 1Start: 80-20-7071qvzd 2 tablets by mouth once dailymetoprolol succinate XL (Toprol-XL) 50 mg 24 hr tablet Indications: Essential (primary) hypertension TAKE 2 TABLETS BY MOUTH EVERY DAY 180 tablet 3 04/01/2023 ActiveStart: 66-28-0549anfx 2 tablets by mouth once dailymetoprolol succinate XL (Toprol-XL) 50 mg 24 hr tablet Take 2 tablets (100 mg) by mouth once daily.0 04/10/2021 ActiveStart: 16-40-5899xebo 2 tablets by mouth once dailyMetoprolol Succinate ER 50 MG Oral Tablet Extended Release 24 Hour take 2 tablets by mouth every day Quantity: 180 Refills: 3 Ordered: 10-Apr-2021 Bradly Tanner MD Start : 10-Apr-2021 ActiveStart: 10-14-2019 take 1 mg by mouth once dailymetoprolol 50 mg ER Tab mg tab(s), Oral, Daily, Refills(s) 0 Start Date: 10/14/19 Status: OrderedMiraLax 3350 Oral Pwdr for Recon 249 gram (4 sources)Start: 34-16-9663XcpwWnw 3350 Oral Pwdr for Recon 249 gram 17 gram, Oral, Every other day, # 255 gram, Refills(s) 11, [id number] 165.1, cm, 10/14/19 13:03:00 EDT, Height/Length Measured, 83.7, kg, 10/14/19 13:03:00 EDT, Weight Measured Start Date: 10/14/19 Status: Ordered Quantity: 255.0 Unit: g Repeat number: 12Start: 03-29-7785MybjLtu 3350 Oral Pwdr for Recon 249 gram 17 gram, Oral, Every other day, # 255 gram, Refills(s) 11, [id number] 165.1, cm, 10/14/19 13:03:00 EDT, Height/Length Measured, 83.7, kg, 10/14/19 13:03:00 EDT, Weight Measured Start Date: 10/14/19 Status: OrderedMulti Vitamin+ (4 sources)Start: 45-62-6443xsjz 1 tablet by mouth once dailyMulti Vitamin+ 1 tab, Oral, Daily, Refill(s) 0, Prophylaxis Start Date: 06/16/18 Status: Ordered Repeat number: 1Start: 06-10-9191dyta 1 tablet by mouth once dailyMulti Vitamin+ 1 tab, Oral, Daily, Refill(s) 0, Prophylaxis Start Date: 06/16/18 Status: Ordered simvastatin 20 mg oral tablet (10 sources)HMG-CoA Reductase InhibitorStart: 48-68-6085ynws 20 mg by mouth once daily at bedtimesimvastatin 20 mg, Oral, Once a day (at bedtime), Refills(s) 0, High cholesterol Start Date: 06/17/18 Status: Ordered Repeat number: 1 spironolactone 25 mg oral tablet (11 sources)Aldosterone AntagonistStart: 05-09-2023 End: 39-76-8148gfgy 1 tablet by mouth once dailyspironolactone (Aldactone) 25 mg tablet Indications: Primary hypertension Take 1 tablet (25 mg) by mouth once daily. 90 tablet 3 03/04/2025 03/04/2026 ActiveStart: 91-85-4218lrsz 1 tablet by mouth once dailyspironolactone (Aldactone) 25 mg tablet Indications: Primary hypertension Take 1 tablet (25 mg) by mouth once daily. 90 tablet 3 02/28/2023 Active End: 79-58-5709ciph 1 tablet by mouth once dailyspironolactone (Aldactone) 25 mg tablet Take 1 tablet (25 mg) by mouth once daily. 0 02/28/2023 Discontinued (Reorder)Vitamin D (1 source)Start: 52-28-0265Ceilryc D Oral, Refills(s) 0 Start Date: 10/14/19 Status: OrderedVitamin E (1 source)Start: 24-60-2516lkdkggy E 100 International_Unit, Oral, Daily, Refills(s) 0, Prophylaxis Start Date: 06/16/18 Status: Ordered Problems Active Problems Problem ClassificationProblemDateDocumented DateEpisodic/ChronicCardiac dysrhythmias (20 sources)Ventricular premature beats; Translations: [Other premature beats] Onset: 039668-26-0413NnrihnrQpymqwo dysrhythmias (13 sources)Palpitations; Translations: [Palpitations]Onset: 02-09-2022 39-51-8358KozyrbanUjaqfopv (4 sources)Bilateral luhhnpdcs32-65-7385YgwcaklWaogzwsdl of lipid metabolism (18 sources)Hyperlipidemia; Translations: [Other and unspecified hyperlipidemia] Onset: 46-78-9499UozpqtrBvejyzltf hypertension (16 sources)Hypertensive disorder; Translations: [Unspecified essential hypertension]Onset: 502524-38-7528JaytpvbOlukiwjj of lower limb (11 sources)Stress fracture, left foot, subsequent encounter for fracture with nonunion; Translations: [Displaced fracture of fifth metatarsal bone, left foot, subsequent encounter for fracture with routine healing]Onset: 12-04-2021 EpisodicOsteoarthritis (5 sources)Arthritis; Translations: [Unilateral primary osteoarthritis, right knee]Onset: 976624-87-4762PeunhxdDimcfsgqetyh (3 sources)Xxjejmldhqdv37-66-2165QwebygqXwphg aftercare (1 source)Encounter for follow-up examination after completed treatment for conditions other than malignant neoplasm; Translations: [Encounter for follow-up examination after completed treatment for conditionsother than malignant neoplasm]Onset: 18-13-5261CntyrwyaOirim gastrointestinal disorders (4 sources)Mzdvkkpnmhje53-81-9133RaytanahUaffg nervous system disorders (1 source)Other chronic pain; Translations: [OTHER CHRONIC PAIN]Onset: 59-37-0370BokruomGlkdp non-traumatic joint disorders (4 sources)Pain in right knee; Translations: [PAIN IN RIGHT KNEE]Onset: 84-18-1310MohgipopRvmid nutritional; endocrine; and metabolic disorders (8 sources)Body mass index 30+ - obesity; Translations: [Body Mass Index 31.0- 31.9, adult]Onset: 843525-21-1711HbqxpbsLgmnz nutritional; endocrine; and metabolic disorders (5 sources)Obesity; Translations: [Obesity, unspecified]59-41-5978VrgyzfyTwmma nutritional; endocrine; and metabolic disorders (2 sources)Body mass index (BMI) 32.0-32.9, adult; Translations: [Body mass index (BMI) 32.0-32.9, adult]Onset: 96-12-5041NzgphwnFwgef skin disorders (1 source)Scar conditions and fibrosis of skin; Translations: [Scar conditions and fibrosis of skin]Onset: 12-82-3708ShibmpbrYbteh skin disorders (3 sources)Hsgm02-02-9545JlwtduccWqsotdswt; thrombophlebitis and thromboembolism (1 source)Phlebitis and thrombophlebitis of superficial vessels of right lower extremity; Translations: [Phlebitis and thrombophlebitis of superficial vessels of right lower extremity]Onset: 21-22-5021KrbuzstfQbjrruco codes; unclassified (2 sources)Never smoked tobacco; Translations: [Other specified health status] Onset: 263927-55-7850CtilxabqHkkncezm codes; unclassified (2 sources)Other specified health status; Translations: [Other specified health status]Onset: 69-09-5765LgkrgnueGcqiasebtree (4 sources)Patient encounter eoqonv32-38-9334Xgpobshssutw (1 source)Other supraventricular tachycardia (HHS-HCC); Translations: [Other supraventricular tachycardia (HHS-HCC)]Onset: 34-41-2504Uzqbddcgvjpo (1 source)Other supraventricular tachycardia; Translations: [Other supraventricular tachycardia]Onset: 90-28-2242Tavloviz veins of lower extremity (4 sources)Venous varices; Translations: [Varicose veins of bilateral lower extremities with pain]Onset: 464297-16-0512FajfejxoFvfbr infection (8 sources)Measles; Translations: [Mumps]43-28-4092Lqzzmumb Past or Other Problems Problem ClassificationProblemDateDocumented DateEpisodic/ChronicOther connective tissue disease (4 sources)Pain in left foot; Translations: [PAIN IN LEFT FOOT]Onset: 01-22-2022 EpisodicOther nutritional; endocrine; and metabolic disorders (4 sources)Obese class I; Translations: [Obesity, unspecified]Onset: 01-22-2023 Resolved: 084502-67-9574WctdamsBzdzujveomra (2 sources)Never smoked tobacco; Translations: [Never smoker]Unclassified (3 sources)Onset: 02-28-2023 Resolved: 838470-37-5972Hitdfjcqwikn (1 source)Other supraventricular tachycardia (HHS-HCC); Translations: [Other supraventricular tachycardia (HHS-HCC)]Onset: 49-73-3316Ttfyxyzogwvu (1 source)Other supraventricular tachycardia; Translations: [Other supraventricular tachycardia]Onset: 03-19-2024 Results Test NameValueInterpretationReference RangeFacilityAlanine aminotransferase [Enzymatic activity/volume] in Serum or PlasmaOrdered By: Bradly Tanner on 59-40-9970SSR [Catalytic activity/Vol]30 U/LNormal7-52Henry [facility] HospitalComment on above:Performed By: #### AST, LIPID, ALT, BMP #### [facility] [address] [place] [address] USAAspartate aminotransferase [Enzymatic activity/volume] in Serum or PlasmaOrdered By: Bradly Tanner on 60-86-9571ZXT [Catalytic activity/Vol]28 U/YEqynqw98-73XiualtjcqHenry County HospitalComment on above: Performed By: #### AST, LIPID, ALT, BMP #### [facility] [address] [place] [id number] USABasic Metabolic Panelon 23-97-8297OZV/1.73 sq M.predicted MDRD (S/P/Bld) [Vol rate/Area]mL/min/{1.73_m2}NormalThe [facility] Physician GroupComment on above:Performed By: #### AST, LIPID, ALT, BMP #### [facility] [address] [place] [address] USACalcium [Mass/volume] in Serum or PlasmaOrdered By: Bradly Tanner on 14-70-6285Nqxjvix [Mass/Vol]9.6 mg/dLNormal8.6-10.3 [facility] HospitalComment on above:Performed By: #### AST, LIPID, ALT, BMP #### [facility] [address] [place] [address] USACarbon dioxide, total [Moles/volume] in Serum or Plasma Ordered By: Bradly Tanner on 89-74-3998SK6 [Moles/Vol]30.4 mmol/LNormal 21.0-31.0[facility] HospitalComment on above:Performed By: #### AST, LIPID, ALT, BMP #### [facility] [address] [place] [address] USAChloride [Moles/volume] in Serum or PlasmaOrdered By: Bradly Tanner on 62-01-4919Ipesmvfo [Moles/Vol]106 mmol/QAuwhlr07-239 [facility] HospitalComment on above:Performed By: #### AST, LIPID, ALT, BMP #### [facility] [address] [place] [id number] USACholesterol [Mass/volume] in Serum or PlasmaOrdered By: Bradly Tanner on 90-57-7976Rpzrvvycazy [Mass/Vol]161 mg/vWMmkgvr215-941 [facility] HospitalComment on above:Chol less than 200 mg/dl low riskChol 201-239 mg/dl borderline riskChol 240 mg/dl and greater high riskResult Comment: Chol less than 200 mg/dl low risk Chol 201-239 mg/dl borderline risk Chol 240 mg/dl and greater high riskPerformed By: #### AST, LIPID, ALT, BMP #### [facility] [address] [place] [address] USACholesterol in HDL [Mass/volume] in Serum or PlasmaOrdered By: Bradly Tanner on 31-05-7004Tbcnnpsudca in HDL [Mass/Vol]60 mg/dLNormal 23-92Henry County HospitalComment on above:HDL CHOL ATP-III CLASSIFICATION Cardiovascular RiskHDL > or equal to 60 mg/dL LOWHDL < 40 mg/dL HIGHResult Comment: HDL CHOL ATP-III CLASSIFICATION Cardiovascular Risk HDL > or equal to 60 mg/dL LOW HDL < 40 mg/dL HIGHPerformed By: #### AST, LIPID, ALT, BMP #### [facility] [address] [place] [address] USACholesterol in LDL Calc [Mass/Vol]Ordered By: Bradly Tanner on 80-01-9805Tsrlaqojzvr in LDL [Mass/Vol]78 mg/dL0-100Henry [facility] HospitalComment on above:LDL ATP III CLASSIFICATIONLDL less than 100 mg/dL OptimalLDL 100-129 mg/dL Near or above rfirkrcADY520-446 mg/dL Borderline highLDL 160-189 mg/dL HighLDL greater than 189 mg/dL Very high Cholesterol in VLDL Calc [Mass/Vol]Ordered By: Bradly Tanner on 02-22-2025 Cholesterol in VLDL [Mass/Vol]23 mg/dLHenry County Hospital Creatinine [Mass/volume] in Serum or PlasmaOrdered By: Bradly Tanner on 23-87-9652Engdpymuum [Mass/Vol]0.75 mg/dLNormmt0.60-1.20Henry [facility] HospitalComment on above:Performed By: #### AST, LIPID, ALT, BMP #### [facility] [address] [place] [address] USAGlomerular filtration rate [Volume Rate/Area] in Serum, Plasma or Blood by CreatinineOrdered By: Bradly Tanner on 02-22-2025 Glomerular filtration rate [Volume Rate/Area] in Serum, Plasma or Blood by Creatinine> 60.0 mL/MinHenry County HospitalGlucose [Mass/volume] in Serum or PlasmaOrdered By: Bradly Tanner on 13-62-9100Ugvxouq [Mass/Vol]89 mg/yEOxheab16-746BplgespruHenry County HospitalComment on above:ADA recommended reference rangeRandom Glucose Reference Range is dependent on time and content of last meal. Glucose of more than 200 mg/dL in a nonstressed, ambulatory subject supports the diagnosisof Diabetes Mellitus.Result Comment: Random Glucose Reference Range is dependent on time and content of last meal. Glucose of more than 200 mg/dL in a nonstressed, ambulatory subject supports the diagnosis of Diabetes Mellitus. ADA recommended reference rangePerformed By: #### AST, LIPID, ALT, BMP #### [facility] [address] [place] [id number] USALipid Panelon 49-36-9986VLX Cholesterol,Ubcasjtzvx72 mg/dL Normal0-100The [facility] Physician GroupComment on above:Result Comment: LDL ATP III CLASSIFICATION LDL less than 100 mg/dL Optimal LDL 100-129 mg/dL Near or above optimal LDL 130-159 mg/dL Borderline high LDL 160-189 mg/dL High LDL greater than 189 mg/dL Very highPerformed By: #### AST, LIPID, ALT, BMP #### [facility] [address] [place] [id number] USATriglyceride w/Criywf901 mg/dLNormal0-149[facility] Physician GroupComment on above:Result Comment: TRIG ATP III CLASSIFICATION TRIG less than 150 mg/dL Normal TRIG 150-199 mg/dL Borderline high TRIG 200-500 mg/dL High TRIG greater than 500 mg/dL Very high Standard traceable to the Center for Disease Conrtrol and Prevention (CDC) test method.Performed By: #### AST, LIPID, ALT, BMP #### [facility] [address] [place] [address] USAVLDL SYYSXWLQZSB37 mg/dLNormalThe [facility] Physician GroupComment on above:Performed By: #### AST, LIPID, ALT, BMP #### [facility] [address] [place] [address] USANo Panel InformationOrdered By: Bradly Tanner on 75-05-4255Plrjfbui Creatinine Clearance (ChemN/[facility] CenterPotassium [Moles/volume] in Serum or PlasmaOrdered By: Bradly Tanner on 95-16-2829Hqtbyzqle [Moles/Vol]4.6 mmol/LNormal3.5-5.1FSumma Health Wadsworth - Rittman Medical CenterComment on above:Performed By: #### AST, LIPID, ALT, BMP #### [facility] [address] [place] [address] USASerum or plasma anion gap determinationOrdered By: Bradly Tanner on 21-60-9692Ykuns gap [Moles/Vol]9.2 mmol/LNormal6.0-15.0[facility] HospitalComment on above:Performed By: #### AST, LIPID, ALT, BMP #### [facility] [address] [place] [address] USASerum or plasma total cholesterol/high density lipoprotein (HDL) cholesterol mass ratOrdered By: Bradly Tanner on 02-22-2025 Cholesterol.total/Cholesterol in HDL [Mass ratio]2.7 {ratio}Normal<5.0Henry County HospitalComment on above:Result Comment: PERFORMED BY: [place] [address] PATHOLOGIST TOPOGRAPHIC COMPUTATOR NGOZI DONALD M.D.Performed By: #### AST, LIPID, ALT, BMP #### [facility] [address] [place], [place] [id number] USASodium [Moles/volume] in Serum or PlasmaOrdered By: Bradly Tanner on 68-18-5351Cctwam [Moles/Vol]141 mmol/AXtizyn025-365 [facility] HospitalComment on above:Performed By: #### AST, LIPID, ALT, BMP #### [facility] [address] [place], [place] [id number] USATriglyceride [Mass/volume] in Serum or PlasmaOrdered By: Bradly Tanner on 35-79-0952Vivvnhsixlnn [Mass/Vol]116 mg/dL0-149[facility] HospitalComment on above:TRIG ATP III CLASSIFICATIONTRIG less than 150 mg/dL NormalTRIG 150-199 mg/dL Borderline highTRIG 200-500 mg/dL High TRIG greater than 500 mg/dL Very highStandard traceable to the Center for Disease Conrtrol and Prevention (CDC) test method.Urea nitrogen [Mass/volume] in Serum or PlasmaOrdered By: Bradly Tanner on 06-02-8784Lmsk nitrogen [Mass/Vol]17 mg/dLNormal7-[facility] HospitalComment on above: Performed By: #### AST, LIPID, ALT, BMP #### [facility] [address] [place] [address] USAUrine Cultureon [id number] identified Cx Nom (U) 75,000 colonies/ml mixed bacterial skin contaminants 2 Days PERFORMED BY: [place] [address] PATHOLOGIST TOPOGRAPHIC COMPUTATOR NGOZI DONALD M.D.NormalThe [facility] Physician GroupComment on above: Performed By: #### CUU #### [facility] [address] [place] [id number] USAUrine cultureOrdered By: Zeny Stanley on 67-93-2539Tfnrorxv identified Cx Nom (U)2 DaysHenry County HospitalCoding Summaryon 80-39-4390Phrrxb SummaryMLBase 64 DdrhtepoBKe6mQx+PGhlYWQ+XK0HEBRjA76spMHnxV7lK5ONCVxRJcmwEOULRGgKPlJvuoRiOX7aeCHi ZXJu [file] cHN (more content not included)...NormalMagruder HospitalCoding SummaryHTMLBase 64 TbtahaglFXj9lLw+PGhlYWQ+ZG1QJHPzH58kuBKwsI4jF7DDKMmHBpdlPAXBWTsUAjJabzEaMM8vyEMy ZXJu [file] cHN (more content not included)...NormalMagruder HospitalUS Injection Spider Veinson 22-34-1737GK Injection Spider VeinsEXAMINATION: US Injection Spider Veins HISTORY: Varicose veins [...] Ananth Valentine MD 11/30/24 10:42 a Technologist: [facility]Patient Handouton 62-14-4704Ggctfnb HandoutRadiology Sclerotherapy, Care After After sclerotherapy, it is [...] how to take care of your injection site.Make sure you: ? Wash your hands with soap and water for at least 20 seconds before and after you change your bandage. If you cannot use soap and water, use hand payroll supervisor. ? Change your bandage. ? Check the area around any injection sites (injection areas) every day for signs of infection. Check for: ? More redness, swelling, or pain. ? More fluid or blood. ? Warmth. ? Pus or a bad smell. Activity ? Do light exercise every day, as told by your health care provider. Walking or riding a stationarybike may be good options for you. ? Return to your normal activities when your health care provider says that it is safe. Ask what activities are safe for you. General instructions ? Take xhmc-mcf-baotldw and prescription medicines only as told by [...] provider. Document Revised: 08/15/2022 Document Reviewed: 08/15/2022 [employer] Patient Education ? 2024 [employer].[facility] Brent[facility] HospitalUS Injection Spider Veinson 98-91-4882MG Injection Spider VeinsEXAMINATION: US Injection Spider Veins HISTORY: Varicose veins [...] Ananth Valentine MD 11/24/24 12:03 p Technologist: [facility] Summaryon 68-39-4076Bvijtt Summary HTMLBase 64 CvsndkdaOEd0eUj+PGhlYWQ+NV4TIPMuH02ceIPxmX4xR1LKFAzLOofaTNPEFEpSEjMkcpPoNL4lnWVf ZXJu [file] cHN (more content not included)...[facility] HospitalUS Injection Spider Veinson 69-71-7207YL Injection Spider VeinsEXAMINATION: US Injection Spider Veins HISTORY: Varicose veins [...] Ananth Valentine MD 11/11/24 11:48 a Technologist: [facility]Patient Handouton 68-68-1698Pfxzhzg HandoutRadiology Sclerotherapy, Care After After sclerotherapy, it is [...] how to take care of your injection site.Make sure you: ? Wash your hands with soap and water for at least 20 seconds before and after you change your bandage. If you cannot use soap and water, use hand payroll supervisor. ? Change your bandage. ? Check the area around any injection sites (injection areas) every day for signs of infection. Check for: ? More redness, swelling, or pain. ? More fluid or blood. ? Warmth. ? Pus or a bad smell. Activity ? Do light exercise every day, as told by your health care provider. Walking or riding a stationarybike may be good options for you. ? Return to your normal activities when your health care provider says that it is safe. Ask what activities are safe for you. General instructions ? Take zpmr-nso-iskdvqo and prescription medicines only as told by [...] provider. Document Revised: 08/15/2022 Document Reviewed: 08/15/2022 [employer] Patient Education ? 2023 [employer].[facility] Brentwood HospitalCoding Summaryon 41-02-3610Zvsmjb SummaryMLBase 64 LcudgpeuHRb2pFe+PGhlYWQ+XW3TILDiC68qoVMjwJ9qN5TCXQuXBgqnGTWXKGyTBmGhcsLpJY4bjAOq ZXJu [file] cHN (more content not included)...NormalMagruder HospitalCoding SummaryHTMLBase 64 MizddjmaHBn9gAp+PGhlYWQ+NY5SQAHtO22ezZVmrL5zJ3GIHNkQLqdeRSSKSTrPIfZtmwPyJB9isCEf ZXJu [file] cHN (more content not included)...[facility] HospitalCoding Summaryon 82-20-3042Favagu SummaryHTMLBase 64 SxlawpyiEGy3mHw+PGhlYWQ+JQ6JIXSfC92kfRSgtQ5nW7NOGZrTBhqtRTMWWKpWRqAvpmPfTO0swFTz ZXJu [file] cHN (more content not included)...[facility] HospitalCoding SummaryHTMLBase 64 WcycoburRWu6rOm+PGhlYWQ+PG8CQANvX91crCPteI4aO0FWJOeLPiomYLQQOVlWKcNtveSeSY7znASx ZXJu [file] cHN (more content not included)...NormalMagruder HospitalUS Injection Spider Veinson 80-29-8582DY Injection Spider VeinsEXAMINATION: US Injection Spider Veins HISTORY: Varicose veins [...] Neptali Islas MD 10/27/24 11:26 a Technologist: [facility] LE Venous Duplex Righton 62-27-4008DP LE Venous Duplex RightEXAMINATION: US LE Venous Duplex Right HISTORY: Phlebitis [...] Ananth Valentine MD 10/19/24 12:56 p Technologist: [facility]Patient Handouton 55-33-2169Jenubvi HandoutRadiology Sclerotherapy, Care After After sclerotherapy, it is [...] how to take care of your injection site.Make sure you: ? Wash your hands with soap and water for at least 20 seconds before and after you change your bandage. If you cannot use soap and water, use hand payroll supervisor. ? Change your bandage. ? Check the area around any injection sites (injection areas) every day for signs of infection. Check for: ? More redness, swelling, or pain. ? More fluid or blood. ? Warmth. ? Pus or a bad smell. Activity ? Do light exercise every day, as told by your health care provider. Walking or riding a stationarybike may be good options for you. ? Return to your normal activities when your health care provider says that it is safe. Ask what activities are safe for you. General instructions ? Take uqpf-sos-sslggkc and prescription medicines only as told by [...] provider. Document Revised: 08/15/2022 Document Reviewed: 08/15/2022 [employer] Patient Education ? 2023 [employer].[facility] HospitalCoding Summaryon 40-03-4008Wrhhhm SummaryMLBase 64 JfzxevcbRBg1mYj+PGhlYWQ+JJ8HNRTcC61eyIItgB2gQ6NEUVbYVsuzYLYLDRuGMwLitqTmKY7djFBt ZXJu [file] cHN (more content not included)...[facility] Mamm Screen w/CAD if perf and 3D Bilon 53-51-5250BZ Mamm Screen w/CAD if perf and 3D BilExam Date/Time: 10/12/2024 11:42 EDT Reason for Exam: Z12. Report IMPRESSION: BIRADS 2 BENIGN FINDINGS, NORMAL [...] very important to your health. The current [place] [employer] and National Comprehensive Cancer [...] BI-RADS Category 2-Benign finding Recommendation: Normal interval follow-upNoalChildren'S Hospital For RehabilitationUS LE Venous Duplex Righton 70-44-4311QZ LE Venous Duplex RightEXAMINATION: US LE Venous Duplex left HISTORY: Phlebitis [...] Neptali Islas MD 10/07/24 12:08 p Technologist: [facility] HospitalComount [facility] Summaryon 73-87-0070Llancz Summary HTMLBase 64 GvcoyjhaTZd1dCm+PGhlYWQ+OO6IWKRhZ41ncAWgmN3oR8GAKKiMMyfgECYRTBuIWmVmajXrSZ7tlGCn ZXJu [file] cHN (more content not included)...[facility] HospitalPatient Handouton 09-06-6776Qklupgc HandoutRadiology Sclerotherapy, Care After After sclerotherapy, it is [...] how to take care of your injection site.Make sure you: ? Wash your hands with soap and water for at least 20 seconds before and after you change your bandage. If you cannot use soap and water, use hand payroll supervisor. ? Change your bandage. ? Check the area around any injection sites (injection areas) every day for signs of infection. Check for: ? More redness, swelling, or pain. ? More fluid or blood. ? Warmth. ? Pus or a bad smell. Activity ? Do light exercise every day, as told by your health care provider. Walking or riding a stationarybike may be good options for you. ? Return to your normal activities when your health care provider says that it is safe. Ask what activities are safe for you. General instructions ? Take pidg-vew-axihfma and prescription medicines only as told by [...] provider. Document Revised: 08/15/2022 Document Reviewed: 08/15/2022 [employer] Patient Education ? 2023 [employer].[facility] Office/Clinic Noteon 24-48-0586Givida/Clinic Note [id number]#1.00OTGTIFFSelect Medical Specialty Hospital - Cincinnati HospitalCoding Summaryon 44-81-1096Owzxcs SummaryHTMLBase 64 TmzhgzbkQZr2kHj+PGhlYWQ+KI1IRCVjC38ydEMhqT4iP9XBHXyUSvhsYQXRONvKYtBvunPyBP6acEPd ZXJu [file] cHN (more content not included)...[facility] Brentwood HospitalConsent Forms - Physicianon 87-64-4583Lsxqabr Forms - Physician [id number]#1.00OTGTIFFSuburban Community Hospital & [facility] Hospital Patient Handouton 08-99-4910Vsnkywl HandoutCardiovascular Varicose Veins Varicose veins are veins that [...] symptoms may get worse when you sit orstand for long periods of time. How is [...] to prevent blood clots and reduce swelling inthe legs. ? Raising (elevating) the legs when resting. ? Losing weight. ? Exercising regularly. If you have persistent symptoms or want to improve the way your varicose veins look, you may chooseto have a procedure to close the varicose [...] these instructions at home: Medicines ? Take juvu-epp-esaogxz and prescription medicines only as told by [...] take short walks every 1?2 hours. This isimportant to improve blood flow and breathing. Ask [...] provider. Do not wear other kinds of tightclothing around your legs, pelvis, or waist. ? [...] trouble breathing. ? Y (more content not included)...[facility] Venous Insufficiency Bilaton 26-07-8837SX Venous Insufficiency BilatEXAMINATION: US Venous Insufficiency Bilat HISTORY: Varicose veins [...] Ananth Valentine MD 09/21/24 8:33 am Technologist: [address] with Estimated Average Gluon 02-24-0830Finegzt [Mass/Vol]123 mg/dLAdventHealth Westchase ER Physician GroupComment on above:Result Comment: PERFORMED BY: [place] [address] PATHOLOGIST TOPOGRAPHIC COMPUTATOR ARABELLA OCHOA M.D.Performed By: #### TSH3, CBC, CMP, T3T, A1C WTH eA, T4T #### [facility] [address] [place], [place] [id number] [facility]YS[facility]IANS MEDICAL CENTERAlanine Aminotransferaseon 94-06-5210MIG [Catalytic activity/Vol]26 U/LNormal[address] [place] [address] Physician [facility] SystemComment on above: Result Comment: PERFORMED BY: [place] [phone] PATHOLOGIST TOPOGRAPHIC COMPUTATOR ARABELLA OCHOA M.D.Performed By: #### AST, LIPID, ALT, BMP #### [facility] [address] [place] [address] USAAlanine aminotransferase [Enzymatic activity/volume] in Serum or PlasmaOrdered By: Zeny Stanley on 52-11-2545YUR [Catalytic activity/Vol] 26 U/LNormal7-60Henry County HospitalComment on above:Performed By: #### TSH3, CBC, CMP, T3T, A1C WTH eA, T4T #### [facility] [address] [place] [address] USAAlbumin [Mass/volume] in Serum or Plasma by Bromocresol green (BCG) dye binding methoOrdered By: Zeny Hoy on 37-48-2523Kgkxcrt BCG dye [Mass/Vol]3.9 g/dL3.5-5.7FSumma Health Wadsworth - Rittman Medical CenterAlkaline phosphatase [Enzymatic activity/volume] in Serum or PlasmaOrdered By: Zeny Stanley on 32-51-4486OUR [Catalytic activity/Vol]55 U/IQimrwz66-795XoqjopezzHenry County HospitalComment on above:Performed By: #### TSH3, CBC, CMP, T3T, A1C WTH eA, T4T #### [facility] [address] [place] [address] USAAspartate Amino Transferaseon 62-79-8289XYP [Catalytic activity/Vol]26 U/FRexwtm51-24Vqh [facility] Physician GroupComment on above: Performed By: #### AST, LIPID, ALT, BMP #### [facility] [address] [place] [address] USAAspartate aminotransferase [Enzymatic activity/volume] in Serum or PlasmaOrdered By: Zeny Stanley on 10-07-4974ZNN [Catalytic activity/Vol] 25 U/VQsizmi29-86UxatfnwlnHenry County HospitalComment on above:Performed By: #### TSH3, CBC, CMP, T3T, A1C WTH eA, T4T #### [facility] [address] [place] [address] USAAutomated basophil %Ordered By: Zeny Stanley on 03-10-2024 Basophils/100 WBC (Bld)0.5 %Normal.Henry County HospitalComment on above:Performed By: #### TSH3, CBC, CMP, T3T, A1C WTH eA, T4T #### [facility] [address] [place] [address] USAAutomated basophil countOrdered By: Zeny Stanley on 61-54-7817Knzmvrlns (Bld) [#/Vol]0.0 10*3/uLNormal0.0-0.2FSumma Health Wadsworth - Rittman Medical CenterComment on above:Result Comment: PERFORMED BY: [place] [address] PATHOLOGIST TOPOGRAPHIC COMPUTATOR ARABELLA OCHOA M.D.Performed By: #### TSH3, CBC, CMP, T3T, A1C WTH eA, T4T #### [place] [address] USAAutomated blood monocyte countOrdered By: Zeny Stanley on 44-03-5148Meujujvld (Bld) [#/Vol]0.4 10*3/uLNormal0.0-0.8Henry County HospitalComment on above:Performed By: #### TSH3, CBC, CMP, T3T, A1C WTH eA, T4T #### [place] [address] USAAutomated eosinophil %Ordered By: Zeny Stanley on 03-23-1499Nlqjojsuhxf/100 WBC (Bld)3.8 %Normal.[facility] Comment on above:Performed By: #### TSH3, CBC, CMP, T3T, A1C WTH eA, T4T #### [place] [address] USAAutomated eosinophil countOrdered By: Zeny Stanley on 40-39-0016Nsvrmywkhqi (Bld) [#/Vol]0.2 10*3/uLNormal0.0-0.45Henry County HospitalComment on above:Performed By: #### TSH3, CBC, CMP, T3T, A1C WTH eA, T4T #### [place] [address] USAAutomated monocyte %Ordered By: Zeny Stanley on 03-10-2024 Monocytes/100 WBC (Bld)9.9 %Normal.Henry County HospitalComment on above:Performed By: #### TSH3, CBC, CMP, T3T, A1C WTH eA, T4T #### [place] [address] USAAutomated neutrophil %Ordered By: Zeny Stanley on 83-21-2050Zqopchonbnz/100 WBC (Bld)55.1 %Normal.Henry County HospitalComment on above:Performed By: #### TSH3, CBC, CMP, T3T, A1C WTH eA, T4T #### [facility] [address] [place] [address] USABasic Metabolic Panelon 50-31-4182Kvumi gap [Moles/Vol]9.4 mmol/LNormal6.0-15.0The [facility] Physician GroupComment on above:Performed By: #### AST, LIPID, ALT, BMP #### [place] [address] USACalcium [Mass/Vol]9.5 mg/dLNormal8.6-10.3The [facility] Physician GroupComment on above:Performed By: #### AST, LIPID, ALT, BMP #### [place] [address] USAChloride [Moles/Vol]104 mmol/BHqbnpj51-513Cau [facility] Physician GroupComment on above:Performed By: #### AST, LIPID, ALT, BMP #### [place] [address] USACO2 [Moles/Vol]32.7 mmol/LHigh21.0-31.0The [facility] Physician GroupComment on above:Performed By: #### AST, LIPID, ALT, BMP #### [place] [address] USACreatinine [Mass/Vol]0.75 mg/dLNormal0.60-1.20The [facility] Physician GroupComment on above:Performed By: #### AST, LIPID, ALT, BMP #### [place] [address] USAGFR/1.73 sq M.predicted MDRD (S/P/Bld) [Vol rate/Area] mL/min/{1.73_m2}NormalThe [facility] Physician GroupComment on above:Performed By: #### AST, LIPID, ALT, BMP #### [address] [place] [address] USAGlucose [Mass/Vol]84 mg/rQGknbgc90-940Rbn [facility] Physician GroupComment on above:Result Comment: Random Glucose Reference Range is dependent on time and content of last meal. Glucose of more than 200 mg/dL in a nonstressed, ambulatory subject supports the diagnosis of Diabetes Mellitus. ADA recommended reference rangePerformed By: #### AST, LIPID, ALT, BMP #### [place] [address] USAPotassium [Moles/Vol]4.1 mmol/LNormal3.5-5.1The [facility] Physician [facility] SystemComment on above:Performed By: #### AST, LIPID, ALT, BMP #### [place] [address] USASodium [Moles/Vol]142 mmol/VTvgisz503-683Qtk [facility] Physician [facility] Health SystemComment on above:Performed By: #### AST, LIPID, ALT, BMP #### [place] [address] USAUrea nitrogen [Mass/Vol]16 mg/dLNormal7-25The [facility] Physician [facility] SystemComment on above:Performed By: #### AST, LIPID, ALT, BMP #### [place] [address] USABilirubin.total [Mass/volume] in Serum or PlasmaOrdered By: Zeny Stanley on 28-05-2075Fbmkmflxf [Mass/Vol]0.7 mg/dLNormal0.3-1.0Henry [facility] HospitalComment on above:Performed By: #### TSH3, CBC, CMP, T3T, A1C WTH eA, T4T #### [place] [address] USACalcium [Mass/volume] in Serum or PlasmaOrdered By: Zeny Stanley on 05-19-0876Sduzuse [Mass/Vol]9.5 mg/dLNormal8.6-10.3FSumma Health Wadsworth - Rittman Medical CenterComment on above:Performed By: #### TSH3, CBC, CMP, T3T, A1C WTH eA, T4T #### [facility] [address] [place] [address] USACarbon dioxide, total [Moles/volume] in Serum or Plasma Ordered By: Zeny Hartfabricio on 27-92-9690VQ1 [Moles/Vol]32.6 mmol/LHigh21.0-31.0 [facility] HospitalComment on above:Performed By: #### TSH3, CBC, CMP, T3T, A1C [facility] eA, T4T #### [facility] [address] [place] [address] USAChloride [Moles/volume] in Serum or PlasmaOrdered By: Zeny Lizeth on 45-35-8978Tjyomezw [Moles/Vol]104 mmol/KUimznx67-947TrstdwhfkHenry County HospitalComment on above:Performed By: #### TSH3, CBC, CMP, T3T, A1C [facility] eA, T4T #### [facility] [address] [place] [address] USACholesterol [Mass/volume] in Serum or PlasmaOrdered By: Bradly Tanner on 68-55-8935Vuvhtkjjghd [Mass/Vol]152 mg/wBHfvxkj052-640 [facility] HospitalComment on above:Chol less than 200 mg/dl low riskChol 201-239 mg/dl borderline riskChol 240 mg/dl and greater high riskResult Comment: Chol less than 200 mg/dl low risk Chol 201-239 mg/dl borderline risk Chol 240 mg/dl and greater high riskPerformed By: #### AST, LIPID, ALT, BMP #### [facility] [address] [place] [address] USACholesterol in LDL Calc [Mass/Vol]Ordered By: Bradly Tanner on 06-33-5925Rrutyltyztw in LDL [Mass/Vol]72 mg/dL0-100Henry County HospitalComment on above:LDL ATP III CLASSIFICATIONLDL less than 100 mg/dL OptimalLDL 100-129 mg/dL Near or above hytrrxeKYD144-214 mg/dL Borderline highLDL 160-189 mg/dL HighLDL greater than 189 mg/dL Very high Cholesterol in VLDL Calc [Mass/Vol]Ordered By: Bradly Tanner on 03-10-2024 Cholesterol in VLDL [Mass/Vol]20 mg/dLHenry County HospitalComplete Blood Count Auto Diffon 56-81-7990Gvvk Corpuscular HGB Conc34.2 g/dLNormal 32.0-35.0The [facility] Physician GroupComment on above:Performed By: #### TSH3, CBC, CMP, T3T, A1C WTH eA, T4T #### [facility] [address] [place] [address] USANRBC%0.1 /100{WBC}Normal0-0.5The [facility] Physician Group Comment on above:Performed By: #### TSH3, CBC, CMP, T3T, A1C WTH eA, T4T #### [facility] [address] [place] [address] USAComprehensive Metabolic Panelon 12-60-5296Rbfdepd [Mass/Vol]3.9 g/dLNormal3.5-5.7The [facility] Physician [facility] SystemComment on above: Performed By: #### TSH3, CBC, CMP, T3T, A1C WTH eA, T4T #### [facility] [address] [place] [address] USAGFR/1.73 sq M.predicted MDRD (S/P/Bld) [Vol rate/Area] mL/min/{1.73_m2}NormalThe [facility] Physician [facility] SystemComment on above:Performed By: #### TSH3, CBC, CMP, T3T, A1C WTH eA, T4T #### [facility] [address] [place] [address] USACreatinine [Mass/volume] in Serum or PlasmaOrdered By: Zeny Stanley on 11-10-5031Nlwninptxx [Mass/Vol]0.75 mg/dLNormal0.60-1.20[facility] HospitalComment on above:Performed By: #### TSH3, CBC, CMP, T3T, A1C WTH eA, T4T #### [place] [address] USAErythrocyte distribution width [Ratio] by Automated count Ordered By: Zeny Stanley on 99-78-2099Iufdcqwbkwx distribution width (RBC) [Ratio]13.4 %Zaurxe29.9-15.3FSumma Health Wadsworth - Rittman Medical CenterComment on above: Performed By: #### TSH3, CBC, CMP, T3T, A1C WTH eA, T4T #### [facility] [address] [place] [address] USAErythrocytes [#/volume] in Blood by Automated countOrdered By: Zeny Stanley on 79-30-8932XOX (Bld) [#/Vol]4.65 10*6/uLNormal3.60-5.00 [facility] HospitalComment on above:Performed By: #### TSH3, CBC, CMP, T3T, A1C WTH eA, T4T #### [facility] [address] [place] [address] USAGlucose [Mass/volume] in Serum or PlasmaOrdered By: Zeny Stanley on 66-10-8306Iexmukh [Mass/Vol]85 mg/kVLmltty30-556ExkwdizeyHenry County HospitalComment on above:ADA recommended reference rangeRandom Glucose Reference Range is dependent on time and content of last meal. Glucose of more than 200 mg/dL in a nonstressed, ambulatory subject supports the diagnosisof Diabetes Mellitus.Result Comment: Random Glucose Reference Range is dependent on time and content of last meal. Glucose of more than 200 mg/dL in a nonstressed, ambulatory subject supports the diagnosis of Diabetes Mellitus. ADA recommended reference rangePerformed By: #### TSH3, CBC, CMP, T3T, A1C WTH eA, T4T #### [facility] [address] [place] [address] USAGlucose mean value [Mass/volume] in Blood Estimated from glycated hemoglobinOrdered By: Zeny Stanley on 69-64-1242Whdqboe glucose Estimated from glycated hemoglobin (Bld) [Mass/Vol]123 mg/dLHenry County HospitalHematocrit [Volume Fraction] of Blood by Automated countOrdered By: Zeny Stanley on 64-56-2464Cgrswwtwqs (Bld) [Volume fraction]41.0 %Normal 34.0-46.4FSumma Health Wadsworth - Rittman Medical CenterComment on above:Performed By: #### TSH3, CBC, CMP, T3T, A1C WTH eA, T4T #### [facility] [address] [place] [address] USAHemoglobin A1c percentageOrdered By: Zeny Stanley on 93-51-5617ByM1c (Bld) [Mass fraction]5.9 %High4.3-5.6FSumma Health Wadsworth - Rittman Medical CenterComment on above:Increased risk for diabetes: 5.7 - 6.4diabetes: >6.4glycemic control for adults with diabetes: <7.0Result Comment: Increased risk for diabetes: 5.7 - 6.4 diabetes: >6.4 glycemic control for adults with diabetes: <7.0Performed By: #### TSH3, CBC, CMP, T3T, A1C WTH eA, T4T #### [facility] [address] [place] [address] USAHemoglobin [Mass/volume] in BloodOrdered By: Zeny Stanley on 50-45-2297Gewyowwysk (Bld) [Mass/Vol]14.0 g/tDKqmwyj62.8-15.4FSumma Health Wadsworth - Rittman Medical CenterComment on above:Performed By: #### TSH3, CBC, CMP, T3T, A1C WTH eA, T4T #### [facility] [address] [place] [address] USALeukocytes [#/volume] corrected for nucleated erythrocytes in Blood by Automated counOrdered By: Zeny Stanley on 34-27-8098PEL corrected for nucl RBC Auto (Bld) [#/Vol]4.5 10*3/uL3.8-11.6FSumma Health Wadsworth - Rittman Medical CenterLeukocytes [#/volume] in Blood by Automated countOrdered By: Zeny Stanley on 76-11-8357RKS (Bld) [#/Vol]4.5 10*3/uLNormal3.8-11.6FSumma Health Wadsworth - Rittman Medical CenterComment on above:Performed By: #### TSH3, CBC, CMP, T3T, A1C WTH eA, T4T #### [facility] [address] [place] [address] USALipid Panelon 49-05-1376KTM Cholesterol,Hrvguuqezj28 mg/dL Normal0-100The [facility] Physician [facility] SystemComment on above:Result Comment: LDL ATP III CLASSIFICATION LDL less than 100 mg/dL Optimal LDL 100-129 mg/dL Near or above optimal LDL 130-159 mg/dL Borderline high LDL 160-189 mg/dL High LDL greater than 189 mg/dL Very highPerformed By: #### AST, LIPID, ALT, BMP #### [facility] [address] [place] [address] USATriglyceride w/Eluylv366 mg/dLNormal0-149The [facility] Physician GroupComment on above:Result Comment: TRIG ATP III CLASSIFICATION TRIG less than 150 mg/dL Normal TRIG 150-199 mg/dL Borderline high TRIG 200-500 mg/dL High TRIG greater than 500 mg/dL Very high Standard traceable to the Center for Disease Conrtrol and Prevention (CDC) test method.Performed By: #### AST, LIPID, ALT, BMP #### [place] [id number] USAVLDL TVAOFCRDUKR15 mg/dLNormalThe [facility] Physician [facility] SystemComment on above:Performed By: #### AST, LIPID, ALT, BMP #### [place] [id number] USALymphocytes [#/volume] in Blood by Automated countOrdered By: Zeny Satnley on 75-35-1770Mpxyngxzjqu (Bld) [#/Vol]1.4 10*3/uLNormal1.00-4.8 [facility] HospitalComment on above:Performed By: #### TSH3, CBC, CMP, T3T, A1C WTH eA, T4T #### [address] [address] USALymphocytes/100 leukocytes in Blood by Automated count Ordered By: Zeny Stanley on 39-10-9828Dkpizfjstka/100 WBC (Bld)30.7 %Normal. [facility] HospitalComment on above:Performed By: #### TSH3, CBC, CMP, T3T, A1C WTH eA, T4T #### [facility] [address] [place] [id number] [facility] [Entitic mass] by Automated countOrdered By: Zeny Stanley on 92-78-2401PNL (RBC) [Entitic mass]30.2 pcJcxlhy84.7-34.3FSumma Health Wadsworth - Rittman Medical CenterComment on above:Performed By: #### TSH3, CBC, CMP, T3T, A1C WTH eA, T4T #### [facility] [address] [id number] [facility] Auto (RBC) [Mass/Vol]Ordered By: Zeny Stanley on 90-05-8470MHMP (RBC) [Mass/Vol]34.2 g/dL32.0-35.0Henry County HospitalMCV [Entitic volume] by Automated countOrdered By: Zeny Stanley on 59-45-9282NKB (RBC) [Entitic vol]88.2 kJWsolqz36-854QnyupwwepHenry County HospitalComment on above:Performed By: #### TSH3, CBC, CMP, T3T, A1C WTH eA, T4T #### [facility] [address] [place], [place] [id number] USANeutrophils [#/volume] in Blood by Automated countOrdered By: Zeny Stanley on 25-72-1476Ebhmpyqbdjc (Bld) [#/Vol]2.5 10*3/uLNormal1.8-7.7 [facility] HospitalComment on above:Performed By: #### TSH3, CBC, CMP, T3T, A1C WT eA, T4T #### [facility] [address] [place], [place] [id number] USANo Panel InformationOrdered By: Zeny Stanley on 03-10-2024 Estimated GFR (CKD-EPI)> 60.0 mL/MinHenry County HospitalPharmacy Creatinine Clearance (ChemN/[facility] CenterNucleated erythrocytes [Presence] in Blood by Automated countOrdered By: Zeny Stanley on 49-77-8903Jcytfjecw RBC Auto Ql (Bld)0.1 /100{WBC}0-0.5FSumma Health Wadsworth - Rittman Medical CenterPlatelet mean volume [Entitic volume] in Blood by Automated count Ordered By: Zeny Stanley on 77-09-9059Eayapmee mean volume (Bld) [Entitic vol]7.6 fLNormal6.3-10.7FSumma Health Wadsworth - Rittman Medical CenterComment on above:Performed By: #### TSH3, CBC, CMP, T3T, A1C WTH eA, T4T #### [facility] [address] [place] [address] USAPlatelets [#/volume] in Blood by Automated countOrdered By: Zeny Stanley on 68-41-4090Xiazaputv (Bld) [#/Vol]214 10*3/hPYuxfwp081-404 [facility] HospitalComment on above:Performed By: #### TSH3, CBC, CMP, T3T, A1C WTH eA, T4T #### [facility] [address] [place] [address] USAPotassium [Moles/volume] in Serum or PlasmaOrdered By: Zeny Stanley on 61-45-2396Tgrhugmss [Moles/Vol]4.2 mmol/LNormal3.5-5.1FSumma Health Wadsworth - Rittman Medical CenterComment on above:Performed By: #### TSH3, CBC, CMP, T3T, A1C WTH eA, T4T #### [facility] [address] [place] [address] USAProtein [Mass/volume] in Serum or PlasmaOrdered By: Zeny Stanley on 85-90-0989Jjvwarb [Mass/Vol]6.3 g/dLLow6.4-8.9Henry County HospitalComment on above:Performed By: #### TSH3, CBC, CMP, T3T, A1C WTH eA, T4T #### [facility] [address] [place] [address] USASerum globulin measurement by calculation (mass/volume) Ordered By: Zeny Stanley on 42-69-7644Fluvhuxg (S) [Mass/Vol]2.4 g/dLNoal [facility] County HospitalComment on above:Performed By: #### TSH3, CBC, CMP, T3T, A1C WTH eA, T4T #### [facility] [address] [place] [address] USASerum or plasma albumin/globulin mass ratioOrdered By: Zeny Lizeth on 09-63-3113Tahfhkx/Globulin [Mass ratio]1.6 {ratio}NormalHenry County HospitalComment on above:Performed By: #### TSH3, CBC, CMP, T3T, A1C WTH eA, T4T #### [place] [address] USASerum or plasma anion gap determinationOrdered By: Zeny Stanley on 31-41-3640Xhrnn gap [Moles/Vol]9.6 mmol/LNormal6.0-15.0Henry County HospitalComment on above:Performed By: #### TSH3, CBC, CMP, T3T, A1C WTH eA, T4T #### [place] [address] USASerum or plasma high density lipoprotein (HDL) cholesterol measurementOrdered By: Bradly Tanner on 27-63-9034Jpbpmqlfgok in HDL [Mass/Vol]60 mg/oTLsqfpa53-37NxjgsrpvpHenry County HospitalComment on above: HDL CHOL ATP-III CLASSIFICATION Cardiovascular RiskHDL > or equal to 60 mg/dL LOWHDL < 40 mg/dL HIGHResult Comment: HDL CHOL ATP-III CLASSIFICATION Cardiovascular Risk HDL > or equal to 60 mg/dL LOW HDL < 40 mg/dL HIGHPerformed By: #### AST, LIPID, ALT, BMP #### [place] [address] USASerum or plasma total cholesterol/high density lipoprotein (HDL) cholesterol mass ratOrdered By: Bradly Tanner on 03-10-2024 Cholesterol.total/Cholesterol in HDL [Mass ratio]2.5 {ratio}Normal<5.0Henry County HospitalComment on above:Result Comment: PERFORMED BY: [place] [address] PATHOLOGIST TOPOGRAPHIC COMPUTATOR ARABELLA OCHOA M.D.Performed By: #### AST, LIPID, ALT, BMP #### [address] [id number] USASodium [Moles/volume] in Serum or PlasmaOrdered By: Zeny Hartfabricio on 82-07-2367Vzdwat [Moles/Vol]142 mmol/JPbrnta178-396ZxggutaeqHenry County HospitalComment on above:Performed By: #### TSH3, CBC, CMP, T3T, A1C WTH eA, T4T #### [facility] [address] [id number] USAThyrotropin [Units/volume] in Serum or PlasmaOrdered By: Zeny Stanley on 34-94-5907UNO Qn1.25 m[IU]/LNormal0.45-5.33Henry County HospitalComment on above:Result Comment: PERFORMED BY: [place] [id number] PATHOLOGIST TOPOGRAPHIC COMPUTATOR ARABELLA OCHOA M.D.Performed By: #### AST, LIPID, ALT, BMP #### [address] [id number] USAThyroxine (T4) [Mass/volume] in Serum or PlasmaOrdered By: Zeny Stanley on 31-02-8959G4 [Mass/Vol]10.07 ug/dLNormal5.39-11.82Henry County HospitalComment on above:Performed By: #### TSH3, CBC, CMP, T3T, A1C WTH eA, T4T #### [address] [id number] USATriglyceride [Mass/volume] in Serum or PlasmaOrdered By: Bradly Tanner on 77-61-5427Cfykaipsmurw [Mass/Vol]101 mg/dL0-149Henry County HospitalComment on above:TRIG ATP III CLASSIFICATIONTRIG less than 150 mg/dL NormalTRIG 150-199 mg/dL Borderline highTRIG 200-500 mg/dL High TRIG greater than 500 mg/dL Very highStandard traceable to the Center for Disease Conrtrol and Prevention (CDC) test method.Triiodothyronine (T3) Totalon 61-33-0060Egdeqrfhdtclmvsh (T3) Total1.28 ng/mLNormal0.87-1.78The [facility] Physician GroupComment on above:Performed By: #### TSH3, CBC, CMP, T3T, A1C WTH eA, T4T #### [facility] [address] [place] [address] USATriiodothyronine (T3) [Mass/volume] in Serum or Plasma Ordered By: Zeny Stanley on 19-93-9851H6 [Mass/Vol]1.28 ng/mL0.87-1.78Henry County HospitalUrea nitrogen [Mass/volume] in Serum or PlasmaOrdered By: Zeny Stanley on 57-82-4416Dvif nitrogen [Mass/Vol]16 mg/dLNormal7-25Henry County HospitalComment on above:Performed By: #### TSH3, CBC, CMP, T3T, A1C WTH eA, T4T #### [facility] [address] [place] [address] USACHEMISTRYOrdered By: SYSTEM SYSTEM on 27-41-645383- hydroxyvitamin D3 [Mass/Vol]44.0 ng/hALzrvhu49.0 - 100.0 ng/mLRemisol Chem Calcium [Mass/Vol]9.0 mg/dLNormal8.9 - 11.1 mg/dLRemisol ChemCreatinine [Mass/Vol]0.8 mg/dLNormal0.5 - 1.3 mg/dLRemisol IdekwDYR10 mL/min/1.73 h0Rghecd >=59mL/min/1.73 i4Dsohsth ChemCalciumon 96-92-0893Tlgxxbw [Mass/Vol]9.0 mg/dL Normal8.9-11.1Fisher [facility] [address] Psychiatric CenterComment on above:Performed By: #### [id number] #### [facility] [address] [place], [place] [address]Jkakwbc for Treatmenton 02-50-3084Jqfdxhl for Treatment [id number]#1.00TIFFNormalFisher Brook [address] Psychiatric CenterCreatinineon 61-79-3150Weljiwxfzj [Mass/Vol]0.8 mg/dLNormal0.5-1.3[facility] [address] Psychiatric CenterComment on above:Performed By: #### [id number] #### [facility] [address] [place], [place] [address]Nbbvpxvjg Orderon 31-56-9521Hctgkfmks Order [id number]#1.00TIFFWood County HospitaleGFRon 02-46-0913bHTC49 mL/min/1.73 l4Uwgryd>=59[facility] For RehabilitationComment on above:Order Comment: Order added by Discern Expert.Performed By: #### [id number] #### [facility] [address] [place], [place] [address]Nxttyxecl Orderon 12-91-7865Xjuyewojy Order [id number]#1.00TIFThe University of Toledo Medical CenterFacesheeton 08-33-0265Tuzjrvwtw [id number]#1.00TIFThe University of Toledo Medical CenterAmbulatory Visit Summaryon 91-85-8712Ihwyzpeikl Visit Summary CHEPE CHAVEZJOCHYNA Ryan :1950 Visit Date:05/20/2023 Ambulatory Visit Instructions Your Care Team Attending Physician - Federico FRANCIS MD Primary Care Physician - Zeny Stanley MD Referring Physician - Zeny Stanley MD This Is Your Medications List Contact prescribing physician if questions or concerns alendronate (Fosamax 70 mg oral tablet) alprazolam (alprazolam 0.25 mg Tab) amitriptyline aspirin (aspirin 81 mg Oral EC Tab) bifidobacterium-lactobacillus (Envive oral capsule) lisinopril (lisinopril 40 mg [...] 1 Tablets By Mouth Every week Contact prescribingphysician if questions or concerns Unchanged alprazolam (alprazolam 0.25 mg Tab) 1 Tablets By Mouth 3 times a day as needed for as needed for anxiety Contact prescribing physician if questions or concerns Unchanged amitriptyline 75 Milligram By Mouth Once a day (at bedtime) Contact prescribing physicianif questions or concerns Unchanged aspirin (aspirin 81 mg Oral EC Tab) 1 Tablets By Mouth Every day Contact prescribing physician if questions or concerns Unchanged bifidobacterium-lactobacillus (Envive oral capsule) See instructions Per physician's [...] you for choosing us for your care. [facility] HospitalPhysician Referralon 05-05-2023 Physician [id number]#1.00TIFFNoAdena Pike Medical CenterOffice Visit (Cardiology)on 54-27-3144Gpvrgf-up visit Diagnoses/Problems Assessed Palpitation (785.1) (R00.2) Premature [...] to demonstrate any arrhythmia. Patientappears completely asymptomatic 2. Hypertension well controlled 3. [...] reviewed and are (more content not included)... NormalUH TouchworksTobacco Screening.on 76-92-7005Xocyz depression screening assessmentNoSt. Joseph Medical Center [employer] DO Work Phone: Fall risk assessmenta) No falls within the last year [facility] [employer] DO Work Phone: Tobacco use status CPHSb) NoMNewport Community Hospital [employer] DO Work Phone: PROF CHEM 8 (BAS METB)on 25-33-5619Eixmj gap [Moles/Vol]11.4 mmol/LNormalSt. Charles HospitalComment on above:Performed By: #### BMP #### [facility] [address] [place] [address] Dr. Octavio PriceCalcium [Mass/Vol]9.1 mg/dLNormal8.5-10.1[facility] Comment on above:Performed By: #### BMP #### [facility] [address] [address] [address] Octavio PriceChloride [Moles/Vol]105 mmol/ZPepydz23-086PtlSt. Charles Hospital Comment on above:Performed By: #### BMP #### [facility] [address] [address] [address] Octavio PriceCO2 [Moles/Vol]30.6 mmol/WXttvvl90.0-32.0[facility] Comment on above:Performed By: #### BMP #### [facility] [address] [address] [address] Octavio PriceCreatinine [Mass/Vol]0.75 mg/dLNormal0.55-1.02The [facility] Medical CenterComment on above:Performed By: #### BMP #### [facility] [address] [place] [address] Dr. Octavio PuentesGFR-AF GUYANESE>60Normal>=60The [facility] Medical CenterComment on above:Performed By: #### BMP #### [facility] [address] [place] [address] Dr. Octavio PuentesGFR-NON AF GUYANESE>60Normal>=60The [facility] Medical CenterComment on above:Performed By: #### BMP #### [facility] [address] [place] [address] Dr. Octavio PriceGlucose [Mass/Vol]84 mg/jUXoeats82-532Mgl [facility] Comment on above:Performed By: #### BMP #### [facility] [address] [place] [address] Dr. Octavio PricePotassium [Moles/Vol]4.0 mmol/LNormal3.5-5.1[facility] Comment on above:Performed By: #### BMP #### [facility] [address] [place] [address] Dr. Octavio PriceSodium [Moles/Vol]143 mmol/MRrgtoe068-048Caa [facility] Comment on above:Performed By: #### BMP #### [facility] [address] [place] [address] Dr. Octavio PriceUrea nitrogen [Mass/Vol]13.0 mg/dLNormal7.0-18.0The [facility] Medical CenterComment on above:Performed By: #### BMP #### [facility] [address] [place] [address] Dr. Octavio Fox nitrogen/Creatinine [Mass ratio]17.3 mg/mgNormalThe [facility] Medical CenterComment on above:Performed By: #### BMP #### [facility] [address] [place] [address] Dr. Octavio Santiago.on 34-36-6189Mudv risk assessmenta) No falls within the last year-[facility] DO Work Phone: Heart RateNormalMP-[facility] [facility] DO Work Phone: Tobacco use status CPHSb) NoMP-[facility] [place] [facility] DO Work Phone: CREATININEon 91-25-4387Gfplpjegng [Mass/Vol]0.75 mg/dL Normal0.50 - 1.05[facility] Community HospitalComment on above:Performed By: #### CREAT #### [address] [address]Pqomrtteyl [Mass/Vol]mg/dLNormal>60[facility] Comment on above:Performed By: #### CREAT #### [address] [address]Ycydko Comment: CALCULATIONS OF ESTIMATED GFR ARE PERFORMED USING THE MDRD STUDY EQUATION FOR THE IDMS-TRACEABLE CREATININE METHODS. CLIN CHEM 2007;53:766-72ELECTROLYTE PANELon 24-46-4719Opwgd gap [Moles/Vol]13 mmol/WXjcwib13 - 20[facility], Colorado SpringsComment on above:Performed By: #### ELECT #### [address] [address]Nebxvbuo [Moles/Vol]103 mmol/HJmlanh05 - 107UH [facility] Community HospitalComment on above:Performed By: #### ELECT #### [address] [address]RLC8 (Bld) [Moles/Vol]29 mmol/PPofpyd01 - 32UH [facility] Community HospitalComment on above:Performed By: #### ELECT #### [address] [address]Exumgvpzs [Moles/Vol]4.0 mmol/LNormal3.5 - 5.3[facility] Community HospitalComment on above:Performed By: #### ELECT #### [address] [address]Ivpbcx [Moles/Vol]141 mmol/GVakpiy383 - 145UH [facility] Community HospitalComment on above:Performed By: #### ELECT #### [address] [address]CETJ NITROGENon 34-53-6411Hvvt nitrogen [Mass/Vol]19 mg/dLNormal 6 - 23UH [facility] Community HospitalComment on above:Performed By: #### UREA #### [address] [address]FMIRgo 79-05-3743SGCYKmgmpt Visit (CARDTOMI) --------KAY CHAVEZ Shelby ([id number]) 1950 FDate Time Provider Ztyygijumg09/5/18 10:30 AM CAMILO LANTIGUA During your visit today, we recorded the following information about you: Pulse Respiration Blood pressure Weight 64/minute 18/minute 150/81 80.7 kg Height 1.651 Liz regalado MD 02/27/2018 10:54 AM [facility] InstituteThorn[facility] Department ofCardiovascular MedicineOUTPATIENT VISIT DATE 02/27/18OUTPATIENT VISIT TYPEESTABLISHEDPRIMARY CARE PHYSICIAN:Zeny Stanley MD[address] [facility] [address]Siqrc: [phone]: [phone] COMPLAINT:Patient presents with:Established PatientHISTORY OF PRESENT ILLNESS:Kay Shelby Chavez is a 67 year old female [...] had a lipid profile orliver function tests p erformed in several years. This needs to be done tomonitor her statin therapy.02/27/2018The patientpresents today for a 1 year follow-up. The patient has beenfeeling well. She denies any chest pain,shortness of breath or dyspnea onexertion. She denies any palpitations, syncopal or near syncopal episodes.She denies any edema, orthopnea or paroxysmal nocturnal dyspnea. She doesstate that her systolic blood pressures have been higher during the afternoonand daytime hours. Her diastolic pressureshave been borderline at timesduring the day also. She takes her carvedilol in the morning, lisinopril atlunch and the second carvedilol in the afternoon. She denies any excessivesodium intake. She istrying to stay active.PAST MEDICAL HISTORYDiagnosis Date- Anxiety- [...] [Other]) Mother- Hypertension Father- Heart Mother- Heart FatherALLERGIES:ALLERGIESNo Known AllergiesMEDICATIONS:lisinopril (ZESTRIL, PRINIVIL) 5 mg tablet TAKE 1 TABLET ONCE DAILYcarvedilol (COREG) 12.5 mg tablet TAKE 1 TABLET TWICE DAILY WITH MEALSAMITRIPTYLINE HCL (ELAVIL ORAL) Take 75 mg by mouth once daily.MULTIVIT ANDMINERALS/FERROUS FUM (MULTI VITAMIN ORAL) Take by mouth once daily.VITAMIN E ORAL Take by mouth once daily.GLUCOSAMINE HCL/CHONDR TREVINO A NA (OSTEO BI-FLEX ORAL) Take by mouth once daily.CALCIUM CARBONATE/VITAMIN D3 (VITAMIN D-3 ORAL)Take by mouth once daily.CALCIUM ORAL Take by [...] normal, no S3, no S4. No murmur. Nocarotidbruits.Respiratory: Clear to auscultation bilaterally. Good respiratory effort.GI: Soft, nontender, bowel sounds normal, no palpable hepatosplenomegalyExtremities: Normal pulses in distal lower extremities. Absent lower extremityedemaNeuro: Alert, cooperative with no focal deficit.Psych: Pleasant and cooperative.Skin: No rashes or wounds.CARDIOVASCULAR MEDICINE TESTING:A 12-lead electrocardiogram obtained on February 27, 2017 reveals sinus rhythm at61 bpm. There is a first-degree AV block present. There are no other changesnoted.IMPRESSION:1. Essential hypertension, benign - ICD9: 401.1,ICD10: I10 (primarydiagnosis), fair control on current medical therapy. Suggested movinglisinopril dose to a.m.2. Pure hypercholesterolemia - ICD9: 272.0, ICD10: E78.00, currently onsimvastatin. Managed by primary care physician..3. PVC (premature ventricular contraction) - ICD9: 427.69, ICD10: I49.3, nocurrent symptoms of palpitations. There are no PVCs on her electrocardiogram.PLAN:Continue current medical regimen. Change lisinopril dosing time to everymorning with first dose of carvedilol.Monitor blood pressure at home.Low-cholesterol, low-fat diet.Regular aerobic exercise.Patient will follow-up with primary care physician as this office is closing.She can follow- up with us as needed.A copy of this note will be provided to the requesting provider by way ofshbaylor [facility] medical record or via U.S. Mail.This document was generated utilizing QA on Requeston dictation. I have reviewed andverified that the contents of the document are accurate with the exception ofminor grammatical, spelling and punctuation errors.CONTACT INFORMATION:Thank you for allowing us to participate in the care of this very pleasantpatient. Please free to contact us if we can be of any further assistance.Camilo Lantigua MD, FACCRobert and Mariana Beauchamppartment of Cardiovascular MedicineAdams County Hospitalrt and Vascular Institute[address] [address]Kfpfrx: [phone] Referring Provider: ZENY STANLEY [[id number]]Allergies As of Date: 02/27/2018(No Known Allergies)Date Reviewed: [...] once jacqueline* MULTI VITAMIN ORAL Take by mouthonce daily. VITAMIN E ORAL Take by mouth once daily. OSTEO BI-FLEX ORAL Take by mouth once daily. VITAMIN D-3 ORAL Take by mouth once daily. CALCIUM ORAL Take by mouth once daily. VITAMIN C ORAL Takeby mouth as needed. ALPRAZOLAM 0.25 MG TABLET Take 0.25 mg by mouth as need* TEMAZEPAM 15 MG CAPSULE 15 mg at bedtime as needed. ASPIRIN 81 MG TABLET,DELAYED * Take 81 mg by mouth once jacquelien*Problem List As Of Date 02/27/2018 Noted Resolved Pure hypercholesterolemia [E78.00] Chest pain [R07.9] Premature beats, unspecified [I49.49] Essential hypertension, benign [I10] Hypertension with goal blood pr essure less than*INVALID FOR* PVC (premature ventricular contraction) [I49.3] INVALID FOR* Status:Closed by DYANA LANTIGUA MD on 02/27/18[facility]on [facility] Protein mass concHNO ID: [id number]: Camilo StewartyService: (none)Author Type: PhysicianType: Progress NotesFiled: 02/27/2018 10:54 AMNote Text:[facility] Department of Cardiovascular MedicineOUTPATIENT VISIT DATE 02/27/18OUTPATIENT VISIT TYPEESTABLNOVANT HEALTH NEW HANOVER REGIONAL MEDICAL CENTERPRFORMERLY SOUT[facility] MEDICAL CENTERRY CARE PHYSICIAN:Zeny Stanley MD[address] [facility] [address]Pibve: [phone]: [phone] COMPLAINT:Patient presents with:Established PatientHISTORY OF PRESENT ILLNESS:Kay Chavez is a 67 year old female with a past cardiac historyof essential hypertension, hypercholesterolemia and PVCs.02/27/2017The patient presents today for a 1 year follow-up. She has donewell overthe past year. She states that she has had no significant palpitationsover the past year. She denies any chest discomfort or unusual shortnessof breath. She denies any syncopal or near syncopal episodes. She didhave a few very brief episodes of lightheadedness which resolved quickly.She istolerating all the medications. She does state that she has nothad a lipid profile or liver function tests performed in several years.This needs to be done to monitor her statin therapy.02/27/2018Thepatient presents today for a 1 year follow-up. The patient has beenfeeling well. She denies any chest pain, shortness of breath or dyspneaon exertion. She denies any palpitations, syncopal or near syn copalepisodes. She denies any edema, orthopnea or paroxysmal [...] [Other]) Mother- Hypertension Father- Heart Mother- Heart FatherALLERGIES:ALLERGIESNo Known AllergiesMEDICATIONS:lisinopril (ZESTRIL, PRINIVIL) 5 mg tablet TAKE 1 TABLET ONCE DAILYcarvedilol (COREG) 12.5 mg tablet TAKE 1 TABLET TWICE DAILY WITH MEALSAMITRIPTYLINE HCL (ELAVIL ORAL) Take 75 mg by mouth once daily.MULTIVIT ANDMINERALS/FERROUS FUM (MULTI VITAMIN ORAL) Take by mouth oncedaily.VITAMIN E ORAL Take by mouth once daily.GLUCOSAMINE HCL/CHONDR TREVINO A NA (OSTEO BI-FLEX ORAL) Take by mouth oncedaily.CALCIUM CARBONATE/VITAMIN D3 (VITAMIN D-3 ORAL) Take by mouth once daily.CALCIUM ORAL Take by mouth once daily.ASCORBIC ACID (VITAMIN C ORAL) Take by mouth as needed.ALPRAZolam (XANAX) 0.25 mg tablet Take 0.25 mg by mouth as needed.temazepam (RESTORIL) 15 mg cap 15 mg at bedtime as needed.aspirin, enteric coated (ASPIRIN, ENTERIC COATED) 81mg EC tablet Take 81mg by mouth once [...] distress.Eyes: Conjunctiva normal, sclera normalNeck: No jugular veno us distention, no palpable thyromegaly.Heart: Regular rhythm, S1, S2 normal, no S3, no S4. No murmur. No carotidbruits.Respiratory: Clear to auscultation bilaterally. Good respiratory effort.GI: Soft, nontender, bowel sounds normal, no palpable hepatosplenomegalyExtremities: Normal pulses in distallower extremities. Absent lowerextremity edemaNeuro: Alert, cooperative with [...] hypercholesterolemia - ICD9: 272.0, ICD10: E78.00, currently onsimvastatin.Managed by primary care physician..3. PVC (premature ventricular contraction) - ICD9: 427.69, ICD10: I49.3,no current symptoms of palpitations. There are no PVCs on herelectrocardiogram.PLAN:Continuecurrent medical regimen. Change lisinopril dosing time to everymorning with first dose of carvedilol.Monitor blood pressure at home.Low-cholesterol, low-fat diet.Regular aerobic exercise.Patient will follow-up with primary care physician as this office isclosing. She can follow- up with us as needed.A copy of this note will be provided to the requesting provider by way ofst. [facility] or via U.S. Mail.This document was generated utilizing [employer]aps[employer] Therapeuticsation. I have reviewedand verified that the contents of the document are accurate with theexception of minor grammatical, spelling and punctuation errors.CONTACT INFORMATION:Thank you for allowing us to participate in the care of this very pleasantpatient. Please free to contact us if we can be of any furtherassistance.Camilo Lantigua MD, [facility] and [facility] GuidoMercy Hospital Waldron of Cardiovascular MedicineCity Of Hope, [place] and [facility] [place] [address] [place], [place] [address]Lckdrr: [phone] NormalCSt. Mary's Medical Center Vital Signs Date TimeVital SignValuePerforming MnpamdsarMehykdso30-40-5875 10:32-0400Body pwaoii663.6 cmBradly Tanner MD Work Phone: [phone]10-10-2025 10:32-0400 Body mass index (BMI) [Ratio]32.89 kg/t6KxbihhfBradly Tanner MD Work Phone: [phone]10-10-2025 10:32-0400 Body gyerdo34.91 kgBradly Tanner MD Work Phone: [phone]10-10-2025 10:32-0400 Diastolic blood whiaeodd64 mm[Hg]Bradly Tanner MD Work Phone: [phone]10-10-2025 10:32-0400 Heart rate78 /minBradly Tanner MD Work Phone: [phone])414[address]10-10-2025 10:32-0400 Systolic blood ckccppto389 mm[Hg]Bradly Tanner MD Work Phone: [phone]10-25-2024 11:02-0400 Diastolic blood tocwrcgh23 mm[Hg]Bradly Tanner MD Work Phone: [phone])[address]10-25-2024 11:02-0400 Systolic blood mm[Hg]Bradly Tanner MD Work Phone: [phone]10-25-2024 10:26-0400 Body fyzowh582.1 cmBradly Tanner MD Work Phone: [phone]10-25-2024 10:26-0400 Body mass index (BMI) [Ratio]32.28 kg/m2OoawyyiBradly Tanner MD Work Phone: [phone]10-25-2024 10:26-0400 Body rgztoy92 kgBradly Tanner MD Work Phone: [phone])099-[address] [place], [place] [address]10-25-2024 10:26-0400 Heart rate60 /minBradly Tanner MD Work Phone: [phone])[address]12-26-2023 15:09-0500 Blood Pressure LocationMichael NILL [facility]26[facility] 15:09-0500Diastolic blood dheafkaz35 mm[Hg]Federico NILL [facility]12-26-2023 15:09-0500Heart rate 72 /minMichael NILL [facility]12-26-2023 15:09-0500 Respiratory rate16 /minMichael NILL [facility]12-26-2023 15:09-0500Systolic blood vvfsjzre834 mm[Hg]Federico NILL [facility]10-06-2023 09:40-0400Body oedfbp220.1 cmBradly Tanner MD Work Phone: [phone])638-[address] [place], [place] [address]32[address]10-06-2023 09:40-0400 Body mass index (BMI) [Ratio]31.85 kg/l1RpakofsBradly Tanner MD Work Phone: 1([phone])227-[address] [place], [place] 9321810-06-2023 09:40-0400 Body kowqtg54.82 kgBradly Tanner MD Work Phone: 1(732)509-[address] [place], [place] [address]10-06-2023 09:40-0400 Diastolic blood yhtbfbbg76 mm[Hg]Bradly Tanner MD Work Phone: 1(331)172-[address] [place], [place] [address]10-06-2023 09:40-0400 Heart rate72 /minBradly Tanner MD Work Phone: [facility]10-06-2023 09:40-0400 Systolic blood mrtsmarq072 mm[Hg]Bradly Tanner MD Work Phone: [facility]10-07-2022 09:41-0400 Body phuoxy849.1 cmDouglas Lakhwinder Hoy Work Phone: [phone]-Lenjd [facility] 250 DO Work Phone: [phone] 09:41-0400Body mass index (BMI) [Ratio] 31.78 kg/l9Qpbksai M Hoy Work Phone: [phone]-Dspkp [facility] 250 DO Work Phone: [phone] 09:41-0400Body surface area Derived from formula1.94 p0Jhjnvua M Hoy Work Phone: [phone]-Mrtzw [facility] 250 DO Work Phone: [phone] 09:41-0400Body .64 kgDouglas M Hoy Work Phone: [phone]-Abrtw [facility] DO Work Phone: [phone] 09:41-0400Diastolic blood yrjzcsmw46 mm[Hg] Zeny M Hoy Work Phone: [phone]-Drxad [facility] 250 DO Work Phone: [phone] 09:41-0400Heart rate69 /minDouglas M Hoy Work Phone: [phone]-Szndb [facility] 250 DO Work Phone: [phone] 09:41-0400Systolic blood samtcluc335 mm[Hg] Zeny M Hoy Work Phone: [phone]-Yztjv [facility] 250 DO Work Phone: 1(833) 295-448810-01-2021 09:42-0400Body qkemgz960.1 cmDocharo Keane Hoy Work Phone: [phone]-Fgdlm [facility] 250 DO Work Phone: 1(432) 820-875410-01-2021 09:42-0400Body mass index (BMI) [Ratio] 31.62 kg/x0Baiwmgm M Hoy Work Phone: [phone]-Xfcuy [facility] 250 DO Work Phone: [phone]) 581-115510-01-2021 09:42-0400Body surface area Derived from formula1.94 k6Myzpwxq M Hoy Work Phone: [phone]-Zddsa [facility] 250 DO Work Phone: 1(810) 571-858910-01-2021 09:42-0400Body miciry09.18 kgDocharo Keane Hoy Work Phone: [phone]-Jhase [facility] 250 DO Work Phone: 1(330) 205-331810-01-2021 09:42-0400Diastolic blood mm[Hg] Zeny Keane Hoy Work Phone: [phone]-Jjrfx [facility] 250 DO Work Phone: 1(537) 870-525210-01-2021 09:42-0400Heart rate62 /minDouglas Lakhwinder Hoy Work Phone: [phone]-Waqfh [facility] 250 DO Work Phone: 1(379) 128-356910-01-2021 09:42-0400Systolic blood mm[Hg] Zeny Harty Work Phone: [phone]-Qdvqg [facility] 250 DO Work Phone: Encounters Encounter DateEncounter TypeCare ProviderFacilityStart: 03-04-2025 End: 01-84-0368Yjbbip outpatient visit 25 minutesModior Tanner MD Work Phone: [facility]Comment [facility]:Premature ventricular contractions (Primary Dx); Palpitation; Paroxysmal atrial tachycardia; Primary hypertension; Hyperlipidemia, unspecified hyperlipidemia type; BMI 32.0-32.9,adult; Never smoked tobacco; Essential (primary) hypertensionStart: 03-04-2025 End: 21-53-8602dpejqbiirnMCWRMUR [facility] AmbulatoryStart: 02-22-2025 End: 77-87-9950Wgpvijv encounter procedureBradly Tanner MD-[facility] [place] Work Phone: Start: 02-22-2025 End: 70-23-8934qseizdsifhNefifxb M Hoy MD Work Phone: [facility] Work Phone: Start: 02-01-2025 End: 60-76-9674zbxhuhzojxZwkgsrh M Hoy MD Work Phone: [facility] Work Phone: Start: 02-01-2025 End: 30-95-2475Mbqobwbt ReferredZeny Keane MD-LAB [facility] Start: 12-27-2024 End: 18-16-5315foivgmuatoMqltehg Vytautas Lucía AUGUSTINEFacility:[facility] Start: 11-30-2024 End: 10-45-5887owlahbtpgrJwdqh VBarbara WestFacility:[facility] HospitalStart: 11-24-2024 End: 96-44-8351pqxvgwixupVncff VBarbara ValentineFacility:[facility] HospitalStart: 11-11-2024 End: 07-06-0507gxcmvmfnnxAbrlcs R. ZieberFacility:[facility] HospitalStart: 10-27-2024 End: 90-97-1817issptqbnxhSwmqcx Cindy IslasFacility:[facility] HospitalStart: 10-19-2024 End: 56-43-5254bqeyptfzxqCfmrj Romulo ValentineFacility:[facility] HospitalStart: 10-14-2024 End: 99-77-6878hqbqbkuzzrYnrlfe R. ZieberFacility:[facility] HospitalStart: 10-12-2024 End: 27-40-8045qtyctcpljsTqdzgd J LampeFacility:[facility]ENTERtart: 10-12-2024 End: 87-66-3158Qhpojyz encounter procedureTerernie Shannon [facility] Start: 10-07-2024 End: 01-26-2922fvdxqlwuceZielst R. ZieberFacility:[facility]ertart: 09-29-2024 End: 42-62-9189ylccxshplzFuvgfe R. ZieberFacility:[facility] HospitalStart: 09-23-2024 End: 24-37-1050tgsynzpwioSebfn Romulo ValentineFacility:[facility] Centertart: 09-15-2024 End: 79-51-4607bgrgdwsuolWvsgy VBarbara ValentineFacility:[facility] Centertart: 03-19-2024 End: 24-17-0206Uythmy outpatient visit 15 minutesBradly Tanner MD Work Phone: [facility] CenterComment on above:Palpitation (Primary Dx); Paroxysmal atrial tachycardia (CMS-HCC); Premature ventricular contractions; Primary hypertension; Hyperlipidemia, unspecified hyperlipidemia type; BMI 32.0-32.9,adultStart: 03-19-2024 End: 36-15-2478jkvyglnzpsHZXNOOBPhoebe [facility] AmbulatoryStart: 03-10-2024 End: 65-96-4745Oizeltq encounter procedureMD Zeny Stanley Work Phone: [facility] [place] Work Phone: Start: 03-10-2024 End: 67-56-1310nxzxeqkwhfNV Zeny Stanley Work Phone: [facility] Work Phone: Start: 21-56-9590eqzknauhwjHpzbgv J LampeFacility:[facility] Start: 10-10-2023 End: 40-83-4251Uzcnxtx encounter procedureTerernie Shannon [facility] Start: 05-20-2023 End: 17-15-2457tpoxmlhihrHlixzdc R NILLFacility: [facility]vueStart: 05-20-2023 End: 00-37-1458Qgmirrv encounter procedureMichael R NILL General Surgery Nill/[facility] Start: 72-02-4514aysjpanwxpMhyeny LampeFacility: BellevueStart: 02-28-2023 End: 19-25-3760Flxibh outpatient visit 15 minutesBradly Tanner MD Work Phone: [place]landsComment on above:Palpitation (Primary Dx); Paroxysmal atrial tachycardia; Premature ventricular contractions; Class 1 obesity; Primary hypertension; Hyperlipidemia, unspecified hyperlipidemia typeStart: 18-73-6647dhpfhdwaqp SHANE FINNEY .Facility:K5Gvnpn: 93-13-3461bkdfwlegerGR ZENY STANLEY . Facility:C9Gynna: 10-01-2022 End: 19-60-3827xamitibgrqURIKUMGJDOVY LAKSHMIPATHY .Facility:K0Ggoub: 07-31-2022 End: 76-61-5714nbdgctqgscSODGJ D HIGHLANDERFacility:H2Phodd: 03-20-2022 End: 02-83-3619hjuhepavyyXOQSH D HIGHLANDERFacility:U3Rpfln: 82-77-4319Nl RenewalDocharo Harty Work Phone: [phone]-Vhcof [facility] DO Work Phone: Start: 42-07-4065rhfmxckonkRy. Mourhaf Traboulssi Facility:[id number]: 05-44-0761Bcanjh outpatient visit 15 minutesDocharo Stanley Work Phone: [phone]-Fjdst [facility] 250 DO Work Phone: Start: 02-19-2022 End: 47-41-9679suhsckrshkJQ ANANTH Danielson WESTFacility:D7Tfzxp: 02-04-2022 End: 74-91-8508atviqcvtcoJM MOURHAF TRABOULSSIFacility:H5Sbeox: 01-22-2022 End: 24-60-1442jfyeccouqfCUJBZRQV CULLENFacility:Z0Bzxba: 01-02-2022 End: 98-89-4703yemuzkduwtYI ANANTH V WESTFacility:O1Fjyed: 12-27-2021 End: 31-82-9021crsedqbvwpOFRKCVJS CULLENFacility:G4Jvnfl: 11-29-2021 End: 40-72-7362mqukbavgwfCQJZZMVX CULLENFacility:R0Tfscc: 10-04-2021 End: 11-67-4898Yxmgwiu encounter procedureTertipa J Shiva [facility] Start: 38-79-0360Cjzxmir encounter procedureDocharo Stanley Work Phone: [phone]-Beitl [facility] 250 DO Work Phone: Start: 02-27-2018 End: 84-17-5727Rfsbkga encounterCAMILO BOND [facility] Procedures DateProcedureProcedure DetailPerforming ClinicianStart: 30-40-4133Xnxof culture eZny Stanley MD Work Phone: Start: 12-72-9255Uveheuld of lesion of skinMichael NILL Comment on above:left earAppendectomyDouglas Lakhwinder Stanley Work Phone: Cataract surgeryDouglas M Hoy Work Phone: Dilation and curettageTeresa Shiva Extraction of cataractMichael NILL HysterectomyDouglas M Hoy Work Phone: HysterectomyTeresa Shiva Ligation of varicose veinDouglas M Lizeth Work Phone: Stripping of veinTeresa Shiva TonsillectomyDouganeglo Stanley Work Phone: TonsillectomyHuma Shannon Total abdominal hysterectomy with bilateral salpingo-oophorectomyMichael NILL Plan of Treatment DateCare ActivityDetailAuthorStart: 11-97-3489Kmnwumhmv for malignant neoplasm of [facility] CenterStart: 03-04-2026 End: 60-06-7232Pzfxwhx aminotransferase [Enzymatic activity/volume] in Serum or Plasma by With P-5'-PAlanine Aminotransferase Lab Routine Hyperlipidemia, unspecified hyperlipidemia type Expected: 03/04/2026, Expires: 06/02/2026[facility] Work Phone: Comment on above:Expected: 03/04/2026, Expires: 06/02/2026Start: 03-04-2026 End: 22-88-8196Iernshlmy aminotransferase [Enzymatic activity/volume] in Serum or Plasma by With P-5'-PAspartate Aminotransferase Lab Routine Hyperlipidemia, unspecified hyperlipidemia type Expected: 03/04/2026, Expires: 06/02/2026 [facility] Work Phone: Comment on above:Expected: 03/04/2026, Expires: 06/02/2026Start: 03-04-2026 End: 58-98-9113Qogkb metabolic 2000 panel - Serum or PlasmaBasic Metabolic Panel Lab Routine Premature ventricular contractions Primary hypertension Expected: 03/04/2026, Expires: 06/02/2026[facility] Work Phone: Comment on above:Expected: 03/04/2026, Expires: 06/02/2026Start: 03-04-2026 End: 91-70-5020Dejnc 1996 panel - Serum or PlasmaLipid Panel Lab Routine Hyperlipidemia, unspecified hyperlipidemia type Expected: 03/04/2026, Expires: 06/02/2026[facility] Work Phone: Comment on above:Expected: 03/04/2026, Expires: 06/02/2026Start: 03-03-2026 End: 23-23-5182Iiyvdlh encounter zrnwuyzcj37/09/2026 10:30 AM EDT Office Visit [address] [place] [address] Bradly Tanner MD [address] [facility] [address] [place] [address] [facility]: 45-44-9720Mfdtbgrlb for osteoporosisBone Density [facility]: 07-30-2025 Medicare Annual Wellness VisitMedicare Annual Wellness Visit (AWV)[facility]: 03-04-2025 End: 12-28-7521Bkcxhyn encounter lefmmgejh89/10/2025 10:30 AM EDT Office Visit [address] [place] [address] Bradly Tanner MD [address] [facility] [address] [place] [address] [facility]: 19-09-8480VUM High Risk: (Elderly (60+) or Population) (1 - 1-dose 75+ series)RSV High Risk: (Elderly (60+) or Population) (1 - 1-dose 75+ series)[facility]: 02-17-2025 End: 40-05-7104Vnedesz aminotransferase [Enzymatic activity/volume] in Serum or Plasma by With P-5'-PAlanine Aminotransferase Lab Routine Hyperlipidemia, unspecified hyperlipidemia type Expected: 02/17/2025, Expires: 03/19/2025 [facility] Work Phone: Comment on above:Expected: 02/17/2025, Expires: 03/19/2025Start: 02-17-2025 End: 43-02-9739Dagklsrdl aminotransferase [Enzymatic activity/volume] in Serum or Plasma by With P-5'-PAspartate Aminotransferase Lab Routine Hyperlipidemia, unspecified hyperlipidemia type Expected: 02/17/2025, Expires: 03/19/2025 [facility] Work Phone: Comment on above:Expected: 02/17/2025, Expires: 03/19/2025Start: 02-17-2025 End: 35-74-4429Wizwz metabolic 2000 panel - Serum or PlasmaBasic Metabolic Panel Lab Routine Primary hypertension Expected: 02/17/2025, Expires: 03/19/2025[facility] Work Phone: Comment on above:Expected: 02/17/2025, Expires: 03/19/2025Start: 02-17-2025 End: 14-01-5299Bqrrg 1996 panel - Serum or PlasmaLipid Panel Lab Routine Hyperlipidemia, unspecified hyperlipidemia type Expected: 02/17/2025, Expires: 03/19/2025[facility] Work Phone: Comment on above:Expected: 02/17/2025, Expires: 03/19/2025Start: 11-25-2147Atogquxd identified in Urine by CultureUrine Culture [facility] Hospitalt[facility]: 60-76-2582Minrf cultureBlanchard Valley Health System Bluffton Hospitaltart: 47-62-8699HFKIN-19 Vaccine ( season) COVID-19 Vaccine ( season)[facility]: 68-28-1898Mwbpdaruu vaccinationInfluenza Vaccine (#1)[facility]: 93-95-8533Dkuhwddhg for malignant neoplasm of colonBucyrus Community Hospital: 03-19-2024 End: 31-81-5797Cjrfrlp encounter gnvuniuzf28/25/2024 10:20 AM EDT Office Visit [facility] [address] [facility] [address] [place] [address] Bradly Tanner MD [address] [facility] [address] [place] [address] [facility]: 93-75-5808OOXUY-19 Vaccine ( season)COVID-19 Vaccine ( season)[facility]: 91-11-5935Lfyjzsmmq vaccinationInfluenza Vaccine (#1)[facility]: 63-11-2764WJB, Provider: Bradly Tanner, Status: Pen, Time: 9:20 AMFUV, Provider: Bradly Tanner, Status: Pen, Time: 9:20 AM-[facility] 250 DO Work Phone: Start: 12-33-0718Rqtiovtrh vaccinationInfluenza Vaccine (#1)[facility]: 69-94-7350Uoaarevmh for osteoporosisBone Density ScanBucyrus Community Hospital: 04-22-2022 COVID-19 Vaccine (4 - Pfizer series)COVID-19 Vaccine (4 - Pfizer series) [facility]: 64-54-1286JLW, Provider: Bradly Tanner, Status: Pen, Time: 9:30 AMFUV, Provider: Bradly Tanner, Status: Pen, Time: 9:30 AMMP-[facility] 250 DO Work Phone: Start: 71-15-5799KBO High Risk: (Elderly (60+) or Population) (1 - Risk 60-74 years 1-dose series)RSV High Risk: (Elderly (60+) or Population) (1 - Risk 60-74 years 1-dose series)[facility]: 95-34-2252Zahtcmvxs for malignant neoplasm of breastMammogramUnGlenbeigh Hospital: 31-87-2393ZZhX/Tdap/Td Vaccines (1 - Tdap)DTaP/Tdap/Td Vaccines (1 - Tdap)[facility]: 21-16-0179Gasvpats mellitus screeningDiabetes Screening [facility]: 51-22-4790Tcnjchybs C screeningHepatitis C ScreeningUnGlenbeigh Hospital: 30-54-6937DOV Vaccines (1 of 1 - Standard series)MMR Vaccines (1 of 1 - Standard series)[facility]: 07-82-4917Kicae panelLipid PanelUnGlenbeigh Hospital: 1950Medicare Annual Wellness VisitMedicare Annual Wellness Visit (AWV)[facility]: 38-49-8578Bfbccclfz for malignant neoplasm of colonUnGlenbeigh Hospital: 1950 Yearly Adult PhysicalYearly Adult PhysicalUnC[facility] Immunizations Immunization DateImmunizationNotesCare BvtvrregQqxgtqcn44-42-2911xlawrdisb virus vaccine, unspecified formulationBradly Tanner MD Work Phone: [facility] Work Phone: [phone]hbf virus vaccine, unspecified formulationMichael NILL General Surgery Vyihmpbl35-68-4358Zwj vaccine, quadrivalent, high-dose, preservative free, age 65y+ (FLUZONE)Bradly Tanner MD Work Phone: [facility] Work Phone: [phone]h virus vaccine, unspecified formulationBradly Tanner MD Work Phone: [facility] Work Phone: [phone] COVID-19 Vac Bivalent 30 MCG/0.3ML Intramuscular SuspensionDocharo Stanley Work Phone: [phone]-Wvlzz [facility] 250 DO Work Phone: Comment on above:Series:85-96-3636EQOV-CoV-2 (COVID- 19) mRNA BNT-162b2 vaxMichael NILL [facility] Izvlpjyh74-62-6601Jgcsapvst, Seasonal, Quadrivalent, AdjuvantedModior Tanner MD Work Phone: [facility] Work Phone: [phone]xpl vaccine Lottie Tanner MD Work Phone: [facility] Work Phone: [phone]-PfR-5 (COVID-19) mRNA BNT-162b2 vax Federico FRANCIS [facility] on above:Result Comment: 2023-05-09: RTT4204-26-4360ZEAA-ZlX-4 (COVID-19) mRNA BNT-162b2 vax Federico FRANCIS [facility] CenterueComcorewell health [facility] hospital on above:Result Comment: 2023-05-09: YTG8604-26-5638reizmc vaccine Lottie Tanner MD Work Phone: [facility] Work Phone: [phone]aq polysaccharide vaccine, 23 Herrera Tanner MD Work Phone: [facility] Work Phone: [phone]) [phone]k virus vaccine, unspecified formulationZeny Stanley Work Phone: [phone]-YtpklOrtonville Hospital 250 DO Work Phone: [phone] 350-855110869476-00-9830knwafkkeb, high dose seasonal, preservative-freeBradly Tanner MD Work Phone: [facility] Work Phone: [phone]dycadkqf polysaccharide vaccine, 23 valLito Tanner MD Work Phone: [facility] Work Phone: [phone]) [phone]peavecdsy conjugate vaccine, 13 valent Zeny Stanley Work Phone: [phone]-HmmlbOrtonville Hospital 250 DO Work Phone: [phone]) [phone]dvclbv, injectable, quadrivalent, preservative Keith Tanner MD Work Phone: [facility] Work Phone: [phone]) 336-143201053922-86-9495xosutkkrprrl polysaccharide vaccine, 23 valentDougangelo Stanley Work Phone: [phone]-QgukfOrtonville Hospital 250 DO Work Phone: [phone]jbjkc, seasonal, injectable, preservative freeBradly Tanner MD Work Phone: [facility] Work Phone: [phone]j, injectable, quadrivalent, contains preservativeBradly Tanner MD Work Phone: [facility] Work Phone: [phone]h, seasonal, injectableMouroz Tanner MD Work Phone: [facility] Work Phone: Payers DatePayer CategoryPayerPolicy [id number] 2025Medicare supplemental policy (as second payer)[employer] [id number] Health [id number] Health Insurance [id number]-[id number]-[id number] [id number] Cross Blue Shield Managed CareANTHEM HMP .[id number] [id number].840.114548.1.13.647.2.7.3.321562.315 [id number] [id number] 1950Unknown [id number] 2..1.491298.3.57[id number] 2..1.230593.3.57[id number] 2..1.800564.3.57[id number] 2..1.195386.3.57[id number] 2..1.980497.3.579.[id number] 2.16.840.1.264059.3.57[id number] 2.16.840.1.517273.3.57[id number] 2.16.840.1.101777.3.57[id number] 2.16.840.1.259476.3.57[id number] 2.16840.1.985053.3.579.2.96086-81-2074Vxwimmz3149587 2.16840.1.545814.3.57[id number] 2.840.1.825742.3.57[id number] 2.840.1.842715.3.57[id number] 2.840.1.270189.3.57[id number] 2.16840.1.747034.3.57[id number] 2.840.1.957669.3.579.2.80086-02-8616Ecbkstl54090951 2.16840.1.086430.3.579.2.[id number] 2.16840.1.858205.3.57[id number] 2.16.840.1.588114.3.57[id number] 2.16.840.1.676785.3.57[id number] 2.16.840.1.033321.3.579.[id number] 2.16.840.1.788168.3.579.2.18091-66-5746Ngzefmu39125430 2.16.840.1.471062.3.579.2.62938-42-3642Aduwlyy03425377 2.16.840.1.415557.3.579.2.10157-11-4261Gwhhusy33889535 2.16.840.1.108820.3.579.2.[id number] 2..840.1.914273.3.579.2.513[id number] 2..840.1.298859.3.57[id number] 2.16.840.1.258219.3.579.[id number] [id number] 2..840.1.205224.3.579.2.575Sdvgkly63426535 2.16840.1.699396.3.579.2.531 [id number] 2.840.1.010618.3.579.2.531 Social History DateTypeDetailFacilityStart: 02-28-2023 End: 43-04-1758Nujazml useAlcohol use-[facility] DO Work Phone: Start: 07-23-2021 End: 51-90-8869Ldmbgvu smoking statusNever smoked tobacco (finding)[facility]: 12-20-5367Vtmbkxi smoking statusNeMartin Memorial Hospitaltart: 02-28-2023 End: 89-58-2660Ipx [facility]igned At [facility]: 68-75-9840Qppofna use and exposureSmokeless tobacco non-userUnCleveland Clinic Foundation Work Phone: Start: 02-28-2023 End: 31-41-5542Vkzovky intakeEx-drinker (finding)[facility] Work Phone: Start: 53-27-0606Qmh Assigned At [facility]Not [facility] file [facility] Work Phone: Start: 02-18-2023 End: 13-09-8093Fnhvmtus to SARS-CoV-2 (event)Not sureUnCleveland Clinic FoundationStart: 86-45-0465Mym Assigned At [address] [facility] Hospitalexual OrientationTrihealth [facility]hes[facility] Start: 15-94-6044NoiHdxrwm (finding)[facility] North HospitalTobacc smoking status NHISUnknown if ever smokedAvita Health System [facility] Work Phone: Functional Status FzgiYyhgpimledFqhvopEogenity53-20-5863Htxmnswgwp vmhosb453/74UnCleveland Clinic Foundation10-10-2025Vital signs78 03/04/2025 10:32 AM EDT Judi Gonsalves RNUnCleveland Clinic Foundation Work Phone: [phone]fweyirgCleveland Clinic Foundation Work Phone: [phone]) [phone]mlkxrfbgr StatusN/AGeneral [facility] [place] Clinical Notes 11-30-2021 to 03-04-2025 Note Date & KppkMaayRrydaafp51-27-4818 History of Present illness Narrative* Bradly Tanner MD - 03/04/2025 10:30 AM EDT Chief Complaint Patient presents with Annual Exam 1 year follow up for palpitations Subjective Kay Chavez is a 75 y.o. female HPI Patient [...] Scribe Attestation By signing my name below, INina LPN, Scribe attest that this documentation has [...] exam, discussion and plan. documented in this [facility] Work Phone: 1(848) 617-307910-10-2025 Instructions* Patient Instructions* Nina Stewart LPN - 03/04/2025 [...] through Care Everywhere. * Diet and health ([place]) documented in this [facility] Work Phone: 1(150) 757-461407-02-2025 NoteSclerotherapy Sclerotherapy is a procedure that is done [...] including vitamins, herbs, eye drops, creams, and jisr-ajv-ulekgjd medicines. ? Any bleeding problems you have. [...] care provider tells you to. ? Taking jhhe-xff-njhutmq medicines, vitamins, herbs, and supplements. Tests ? [...] taken to help prevent infection. These steps mayinclude: ? Removing hair at the injection site. [...] ? Do not wa (more content not included)...[id number] Note Radiology Sclerotherapy Sclerotherapy is a procedure [...] including vitamins, herbs, eye drops, creams, and wboo-zrl-nvrfeit medicines. ? Any bleeding problems you have. [...] care provider tells you to. ? Taking lxsj-btv-nmtsmjl medicines, vitamins, herbs, and supplements. Tests ? [...] taken to help prevent infection. These steps mayinclude: ? Removing hair at the injection site. [...] right away. Call 911. (more content not included)...[facility] [id number] NoteRadiology Sclerotherapy Sclerotherapy is a procedure that is [...] including vitamins, herbs, eye drops, creams, and dlwi-xvr-bqgjvwx medicines. ? Any bleeding problems you have. [...] care provider tells you to. ? Taking pcha-uun-jbpmbay medicines, vitamins, herbs, and supplements. Tests ? [...] taken to help prevent infection. These steps mayinclude: ? Removing hair at the injection site. [...] right away. Call 911. (more content not included)...[facility] [id number] NotePROCEDURE: US Injection Varicose Vein Multiple HISTORY: I83.813 Pre-operative Diagnosis: [...] Islas MD 10/14/24 1:35 pm Technologist: [facility]05-12-2025 NoteRadiology Sclerotherapy Sclerotherapy is a procedure that is [...] including vitamins, herbs, eye drops, creams, and lxzv-zvp-lazicrj medicines. ? Any bleeding problems you have. [...] care provider tells you to. ? Taking smus-jbm-amjybqx medicines, vitamins, herbs, and supplements. Tests ? [...] taken to help prevent infection. These steps mayinclude: ? Removing hair at the injection site. [...] right away. Call 911. (more content not included)...[facility] [id number] NotePROCEDURE: US Injection Varicose Vein Multiple HISTORY: Varicose veins of [...] Islas MD 09/29/24 2:44 pm Technologist: [facility]10-25-2024 History of Present illness Narrative * Bradly Tanner MD - 03/19/2024 10:20 AM EDT Subjective Kay Chavez is a 74 y.o. female Chief Complaint Follow-up HPI Patient is here for follow-up and management for previous evaluation for palpitation with documentation PACs and PVCs, hypertension and hyperlipidemia. Since last time I saw her she reports she feelswell. She has not had any palpitation. Her home heart rate monitoring device fails to demonstrate any arrhythmia. Recent laboratory data noted and reviewed with her. Assessment 1. Previous complaint of palpitation with documentation of both PACs and a brief episode of paroxysmal atrial tachycardia. None recently. Home monitoring failed to demonstrate any arrhythmia. Patientappears completely asymptomatic 2. Hypertension well controlled 3. [...] mouth 3 times a day as needed., Disp:, Rfl: amitriptyline (Elavil) 75 mg tablet, Take 1 tablet (75 mg) by mouth once daily at bedtime., Disp: ,Rfl: lisinopril 40 mg tablet, Take 1 tablet [...] Attestation By signing my name below, I, Tia Limon LPN attest that this documentation has been prepared [...] exam, discussion and plan. documented in this [facility] Work Phone: 1(722) 646-777210-25-2024 Instructions* Patient Instructions* Huma Benitez LPN - 03/19/2024 10:20 AM [...] cannot be sent through Care Everywhere. * DASH Diet (Grenadian) documented in this [facility] Work Phone: 1(894) 786-579312-26-2023 NoteChief Complaint consultation for skin lesion HPI Staff 73 year old female presents on consultation from Dr. Stanley for left ear skin lesion. Patient reports this area was previously excised. History of Present Illness 73 yo female with h/o referred for htn, hypercholesterolemia, arthritis, referred for evaluation ofleft ear lesion; patient had excision of left [...] swallowing difficulties, no hearing loss, no ear infection(s),no nose bleeds. Cardiovascular: normal blood pressure, no [...] virus vaccine, inactivated 03/26/2023 Recorded SARS-CoV-2 (COVID-19) [id number] 02/25/2022 Recorded SARS-CoV-2 (COVID-19) mRNA BNT-162b2 vax 05/11/2021 Recorded SARS-CoV-2 (COVID-19) mRNA BNT-162b2 vax 07/19/2020 Recorded 2023-05-09: TPV70 SARS-CoV-2 (COVID-19) mRNA BNT-162b2 vax 06/28/2020 Recorded 2023-05-09: TPV70 [facility]Comment [facility]:Result Comment: Electronically Signed By: TITO AUGUSTINE, Federico Chilel\Date and Time Signed: 05/20/23 15:33 EST 02-28-2023 History of Present illness Narrative* Bradly Tanner MD - 02/28/2023 9:20 AM EDT Subjective Kay Chavez is a 73 y.o. female Chief Complaint Annual Exam HPI Patient is here for follow-up continue management for of hypertension, hyperlipidemia, palpitation,PVCs and PACs. Since last time I saw her she reports she is doing well. She denies any complaint ofchest pain, palpitation, lightheadedness, dizziness or syncope. She described functional class I. There has been no change in cardiac status or symptoms.. No recurrence Assessment 1. Previous complaint of palpitation with documentation of both PACs and a brief episode of paroxysmal atrial tachycardia. None recently. Home monitoring failed to demonstrate any arrhythmia. Patientappears completely asymptomatic 2. Hypertension well controlled 3. Mild hypokalemia. Corrected. I am awaiting labs to review. I will try to retrieve her recent labwork 4. Hyperlipidemia on treatment and controlled 5. [...] Hyperlipidemia, unspecified hyperlipidemia type [facility] Phone: 1(698) 568-620210-06-2023 Instructions* Patient Instructions* Nina Stewart LPN - 02/28/2023 9:20 AM [...] Follow up 9 month documented in this [facility] Work Phone: [phone]) 287-471105-09-2023 NoteCONSULTATION CONSULTATION DATE: 10/01/2022 CHIEF COMPLAINT: Includes right [...] our patients to inform us about any mroh-qnz-ykylrhz medications or herbal remedies/nutritional supplements/alternative remedies. 2. [...] and treatment options with their primary care provider.[facility] [id number] NotePROCEDURE: XR FOOT LT MIN 3 VIEWS COMPARISON: 03/20/2022 HISTORY: Pain [...] Electronically authenticated by: ANANTH VALENTINE Date: 2022-07-31 10:34[facility] [id number] NotePROCEDURE: XR FOOT LT MIN 3 VIEWS HISTORY: Pain in left [...] favoring chronic pseudoarticulation. Electronically authenticated by: NEPTALI ISLAS Date: 2022-03-20 21:30[facility] [id number] NotePROCEDURE: XR FOOT LT MIN 3 VIEWS COMPARISON: 01/22/2022 HISTORY: Pain [...] authenticated by: ANANTH VALENTINE Date: 2022-02-19 18:22 [facility] [id number] NotePROCEDURE: XR FOOT LT MIN 3 VIEWS HISTORY: Pain in left [...] Electronically authenticated by: NEPTALI ISLAS Date: 2022-01-22 10:35[facility]08-10-2022 NotePROCEDURE: XR FOOT LT MIN 3 VIEWS COMPARISON: 12/27/2021 HISTORY: Pain [...] Electronically authenticated by: ANANTH VALENTINE Date: 2022-01-02 16:27[facility]08-05-2022 NotePROCEDURE: XR FOOT LT MIN 3 VIEWS HISTORY: Pain in left [...] site preventing healing. Electronically authenticated by: NEPTALI ISLAS Date: 2021-12-28 07:39[facility]07-08-2022 NotePROCEDURE: XR FOOT LT MIN 3 VIEWS HISTORY: Pain in left [...] Electronically authenticated by: NEPTALI ISLAS Date: 2021-11-30 08:48[facility] No data available for this section [facility]* Diagnosis Palpitation- Primary Palpitations Paroxysmal atrial tachycardia Paroxysmal supraventricular tachycardia Premature ventricular contractions Other premature beats Class 1 obesity Primary hypertension Unspecified essential hypertension Hyperlipidemia, unspecified hyperlipidemia type documented in this encounter [facility] Work Phone: Evaluation noteNo assessment information available [facility] Work Phone: Evaluation note* Diagnosis Palpitation- Primary Palpitations Paroxysmal atrial tachycardia ([facility]) Paroxysmal supraventricular tachycardia Premature ventricular contractions Other premature beats Primary hypertension Unspecified essential hypertension Hyperlipidemia, unspecified hyperlipidemia type BMI 32.0-32.9,adult documented in this encounter [facility] Work Phone: Evaluation note* Diagnosis Premature ventricular contractions- Primary Other premature beats Palpitation Palpitations Paroxysmal atrial tachycardia Paroxysmal supraventricular tachycardia Primary hypertension Unspecified essential hypertension Hyperlipidemia, unspecified hyperlipidemia type BMI 32.0-32.9,adult Never smoked tobacco Essential (primary) hypertension Unspecified essential hypertension documented in this encounter [facility] Work Phone: History of Present [...] will see her back in [address] [facility] [address] DO Work Phone: [...] year plan to repeat her lab work -[facility] [address] DO Work Phone: Hospital Discharge instructions No data available for this section [facility] HospitalProgress note No data available for this section General Surgery [place] Reason for referral (narrative)* Consultation (Routine) - AuthorizedSpecialtyDiagnoses / ProceduresReferred By ContactReferred To ContactCardiology Diagnoses Paroxysmal atrial tachycardia Premature ventricular contractions Procedures Follow Up In Cardiology Bradly Tanner MD [address] [facility] [address] [place] [address] Referral IDStatusReasonStart DateExpiration DateVisits RequestedVisits [id number]/6/20234/ [facility] Work Phone: Reason for referral (narrative)No reason for referral information availableAv[facility] Work Phone: Summary Purpose Family History No Family History Records FoundUnknown Family Member Name Dates Details Family history of cerebrovas cular accident (CVA): Father(V17.1, Z82.3) Status:ActiveFamily history of congestive heart failure: Father(V17.49, Z82.49) Status:ActiveFamily history of hypertension: Father(V17.49, Z82.49) Status:ActiveHeart problem: Father Status:Active Unknown Family Member Name Dates Details Family history of cerebrovas cular accident (CVA): Father(V17.1, Z82.3) Status:ActiveFamily history of congestive heart failure: Father(V17.49, Z82.49) Status:ActiveFamily history of hypertension: Father(V17.49, Z82.49) Status:ActiveHeart problem: Father Status:Active Unknown Family Member Name Dates Details Family history of cerebrovas cular accident (CVA): Father(V17.1, Z82.3) Status:ActiveFamily history of congestive heart failure: Father(V17.49, Z82.49) Status:ActiveFamily history of hypertension: Father(V17.49, Z82.49) Status:ActiveHeart problem: Father Status:Active Advance Directives No Advanced Directives Records Found Advance Directive Response Recorded Date/ Time Advance Directives No June 12:05pm Chief Complaint KAY CHAVEZ is being seen for an annual follow-up of.KAY CHAVEZ is being seen for an annual follow-up of. Chief Complaint and Reason for Visit Chief Complaint i10 r53.83 e78.00 e7 8.5 Chief Complaint Admit Date Unknown February 01, 2025 1:48pm Chief Complaint Admit Date Unknown February 01, 2025 1:48pm E78.5 February 22, 2025 10:03am Additional Source Comments INFORMATION SOURCE (unrecogn ized section and content) DATE CREATED AUTHOR 03/27/2018 [facility] DATE CREATED AUTHOR AUTHOR'S ORGANIZ ATION 08/13/2019 [facility] DATE CREATED AUTHOR AUTHOR'S ORGANIZ ATION 03/01/2022 [facility] DATE CREATED AUTHOR AUTHOR'S ORGANIZ ATION 03/02/2022 [facility] DATE CREATED AUTHOR AUTHOR'S ORGANIZ ATION 10/10/2022 [facility] DATE CREATED AUTHOR AUTHOR'S ORGANIZ ATION 10/12/2023 [facility] DATE CREATED AUTHOR AUTHOR'S ORGANIZ ATION 10/23/2024 [facility] DATE CREATED AUTHOR AUTHOR'S ORGANIZ ATION 12/03/2024 [facility] DATE CREATED AUTHOR AUTHOR'S ORGANIZ ATION 01/09/2025 [facility] DATE CREATED AUTHOR AUTHOR'S ORGANIZ ATION 03/05/2025 [facility] DATE CREATED AUTHOR AUTHOR'S ORGANIZ ATION 03/06/2025 [facility] Reason for Visit (unrecogniz ed section and content) ReasonCommentsAnnual Fnxb0wpDmmrrvXtjdrqxsEmraui-cv3 yrSpecialtyDiagnoses / ProceduresReferred By ContactReferred To ContactCardiology Diagnoses Paroxysmal atrial tachycardia (CMS-HCC) Premature ventricular contractions Procedures Follow Up In Cardiology Bradly Tanner MD [address] [facility] [address], [facility] [address] [place] [address] Phone: tel: fax: Referral IDStatusReasonStart DateExpiration DateVisits RequestedVisits [id number] Exam1 year follow up for palpitationsSpecialtyDiagnoses / ProceduresReferred By ContactReferred To ContactCardiology Diagnoses Palpitation Procedures Follow Up In Cardiology Bradly Tanner MD [address] [facility] [address], [facility] [address] [place] [address] Phone: tel: fax: Bradly Tanner MD [address] [facility] [address], [address] [address] Phone: tel: fax: Referral IDStatusReasonStart DateExpiration DateVisits RequestedVisits [id number]/25/202410/25/202511 Care Teams (unrecognized sec tion and content) Team MemberRelationshipSpecialtyStart DateEnd Date Zeny Stanley MD [address] [place] [id number] PCP - General06/01/19 Team Status: Active Member Role Status Renetta Stanley MD Primary Care Provider Active Team Status: Inactive Member Role Status Renetta Stanley MD Primary Care Provide r, Attending Provider Active Start: March 10, 2024 End: March 10, 2024MoAPOLINAR Conradeferrzhen ProviderActiveStart: March 10, 2024 End: March 10, 2024Team MemberRelationshipSpecialtyStart DateEnd Date Zeny Stanley MD [address] [place] [id number] PCP - General06/01/19 Team Status: Inactive Member Role Status Dates Zeny Stanley MD Primary Care Provider Active Start: February 01, 2025 End: February 01, 2025Zeny Stanley Joey ProviderActiveStart: February 01, 2025 End: February 01, 2025 Team Status: Inactive Member Role Status Dates Zeny Stanley MD Primary Care Provider Active Start: February 22, 2025 End: February 22, 2025Moarisyamilex Tanner Joey ProviderActiveStart: February 22, 2025 End: February 22, 2025Team MemberRelationshipSpecialtyStart DateEnd Date Zeny Stanley MD [address] [place] [address] PCP - General06/01/19 Goals (unrecognized section and content) Goals may [...] BE BASED ON THE PRIMARY CLINICAL RECORDS. [facility] [employer] [facility] provides no warranty or guarantee of the accuracy or completeness of information in this document.
--- OUTSIDE RECORDS SUMMARY | 2025-03-18 11:19 | XMS_ITS | Clinical Summary ---
Author Organization [facility] Address [address] [place] [address] Phone Care Team Providers Care Substance Abuse Specialist Name Role Phone Familia Stanley MD Primary Care Provider + [phone] Allergies No known active allergies Medications MedicationSigDispense QuantityRefillsLast FilledStart DateEnd DateStatus ALPRAZolam (Xanax) 0.25 mg tablet Take 1 tablet (0.25 mg) by mouth 3 times a day as needed.Active amitriptyline (Elavil) 75 mg tablet Take 1 tablet (75 mg) by mouth once daily at bedtime.Active simvastatin (Zocor) 20 mg tablet Take 1 tablet (20 mg) by mouth once daily at bedtime.Active lisinopril 40 mg tablet Take 1 tablet (40 mg) by mouth once daily.Active magnesium oxide (Mag-Ox) 400 mg (241.3 mg magnesium) tablet Indications:Paroxysmal atrial tachycardia,Premature ventricular contractionsTAKE 2 TABLETS BY MOUTH EVERY DAY 180 tablet ctive metoprolol succinate XL (Toprol-XL) 50 mg 24 hr tablet Indications:Palpitation,Essential (primary) hypertensionTake 1 tablet (50 mg) by mouth 2 times a day. 180 tablet ctive spironolactone (Aldactone) 25 mg tablet Indications:Primary hypertensionTake 1 tablet (25 mg) by mouth once daily. 90 tablet ctive spironolactone (Aldactone) 25 mg tablet Indications:Primary hypertensionTake 1 tablet (25 mg) by mouth once daily. 90 tablet 301/03/789729/10/2025Discontinued(Reorder) metoprolol succinate XL (Toprol-XL) 50 mg 24 hr tablet Indications:Essential (primary) hypertension,PalpitationTake 1 tablet (50 mg) by mouth 2 times a day. 180 tablet Discontinued(Reorder) Active Problems ProblemNoted DateDiagnosed DateNever smoked aiipzeo4403/04/2025MI 32.0-32.9,adult 03/19/20243491Byymkokcyysltq76/30/5391Udcmehmwacdw97/30/7598Rrfbxojpggg05/30/2023 Paroxysmal atrial sbqqdcounqy30/30/2023remature ventricular contractions 01/22/2023 Resolved Problems ProblemNoted DateDiagnosed DateResolved DateClass 1 [id number] Encounters DateTypeDepartmentCare LxflTjvhfzxdwam18/10/2025 10:30 AM EDTOffice Visit [facility] [address] [address] Robi Tanner MD Premature ventricular contractions (Primary Dx); Palpitation; Paroxysmal atrial tachycardia; Primary hypertension; Hyperlipidemia, unspecified hyperlipidemia type; BMI 32.0-32.9,adult; Never smoked tobacco; Essential (primary) hypertension Discharge Disposition: Home03/04/20251710Vhcwsx81/30/2025Orders Only [facility] [address] [address] Robi Tanner MD from Last 3 Months Immunizations ImmunizationAdministration DatesNext DueFlu vaccine (IIV4), preservative free *Check age/dose*04/08/2018Flu vaccine, quadrivalent, high-dose, preservative free, age 65y+ (FLUZONE)03/26/2022Flu vaccine, trivalent, preservative free, HIGH-DOSE, age 65y+ (Fluzone)03/09/2019Flu vaccine, trivalent, preservative free, age 6 months and greater (Fluarix/Fluzone/Flulaval)04/04/2015Influenza, Seasonal, Quadrivalent, Mosvedpfrc10/25/2021Influenza, Ohlfxwxbzug82/01/2019 Influenza, injectable, zruzokkkhwpd03/07/2014Influenza, seasonal, injectable 03/19/2013Pfizer COVID-19 vaccine, bivalent, age 12 years and older (30 mcg/0.3 mL)2Pneumococcal conjugate vaccine, 13-valent (PREVNAR 13)05/26/2018 Pneumococcal polysaccharide vaccine, 23-valent, age 2 years and older (PNEUMOVAX 23)04/21/2019,08/13/2018,05/26/2017Zoster vaccine, recombinant, adult (SHINGRIX) 08/04/2020,04/11/2020 Family History Medical HistoryRelationNameCommentsCVAFatherHeart failureFatherHypertension Fatherheart problemFatherHypertensionMotherRelationNameStatusCommentsFather Mother Social History Tobacco UseTypesPacks/DayYears UsedDateSmoking Tobacco: NeverSmokeless Tobacco: Never Tobacco Cessation:Counseling Given: Not Answered Alcohol UseStandard Drinks/WeekCommentsNot Currently0 (1 standard drink = 0.6 oz pure alcohol)PHQ-2AnswerDate RecordedPatient Health Questionnaire-2 Score0 3CommentsUnknownSex and Gender InformationValueDate RecordedSex Assigned at BirthNot on fileLegal VwuTfiqet24/26/2022 3:19 AM ESTGender Identity Not on fileSexual OrientationNot on file Last Filed Vital Signs Vital SignReadingTime TakenCommentsBlood Ixoabvyh438/7403/04/2025 10:32 AM EDT Kggns517503/04/2025 10:32 AM EDTTemperature--Respiratory Rate--Oxygen Saturation-- Inhaled Oxygen Concentration--Hejcrl60.9 kg (191 lb 9.6 oz)03/04/2025 10:32 AM RUBXzbnsb376.6 cm (5' 4 )03/04/2025 10:32 AM EDTBody Mass Index32.8903/04/2025 10:32 AM EDT Plan of Treatment DateTypeDepartmentCare Team (Latest Contact Info)Qarwsaanjps67/09/2026 10:30 AM EDTOffice Visit [place] [id number] [phone] Robi Tanner MD [facility] [facility] [place] [address] Health MaintenanceDue DateLast DoneCommentsCT Uixqzjrqxgfo1950Colonoscopy 1950FIT1950Lipid Panel02/26/19506473Ibirqztfiaklr1950MMR Vaccines (1 of 1 - Standard series)1Diabetes Iqszdwqum73/04/1968Hepatitis C Ryvghnzvb33/04/1968DTaP/Tdap/Td Vaccines (1 - Tdap)02/27/1972Influenza Vaccine (#1)51, 03/26/2023, 03/26/2022, Additional history exists COVID-19 Vaccine ( - season)2RSV High Risk: (Elderly (60+) or Population) (1 - 1-dose 75+ series)2025Medicare Annual Wellness Visit (AWV)603/10/2024, 11/02/2018, 08/27/2016Bone Density Scan/, 07/12/2021, 08/25/2018, Additional history exists Colorectal Cancer Qmhtqxusg81/31/2028FIT-DNA (Cologuard), 2Pneumococcal LgppuqvFncapjadd74/27/2019, 08/13/2018, 05/26/2018, Additional history existsZoster JbhvnyrzBokfcjuak42/12/2021, 04/11/2020Welcome to Medicare BzafuDkfdrlpugori29/06/2025, 11/02/2018, 08/27/2016HIB VaccinesAged OutNo longer eligible based on patient's age to complete this topicHPV Vaccines Aged OutNo longer eligible based on patient's age to complete this topic Hepatitis A VaccinesAged OutNo longer eligible based on patient's age to complete this topicHepatitis B VaccinesAged OutNo longer eligible based on patient's age to complete this topicIPV VaccinesAged OutNo longer eligible based on patient's age to complete this topicMeningococcal VaccineAged OutNo longer eligible based on patient's age to complete this topicRotavirus VaccinesAged Out No longer eligible based on patient's age to complete this topic Procedures Procedure NamePriorityDate/TimeAssociated DiagnosisCommentsNON- HIE LIPID JGSZEYdcwckw48/30/2025 10:13 AM EDT NON- HIE ALANINE HCDURSSPQEUTSTZPQnjcdkl90/30/2025 10:13 AM EDT NON- HIE ASPARTATE AMINO NZKKJVEOFFYYcstufy29/30/2025 10:13 AM EDT NON-[facility] HIE BASIC METABOLIC NCRVCOyispfd07/30/2025 10:13 AM EDT from Last 3 Months Results * [facility] Basic Metabolic Panel (02/22/2025 10:13 AM EDT)ComponentValueRef RangeTest MethodAnalysis TimePerformed AtPathologist SignatureNON-[facility] Dftgkqh8120 - 100 mg/dLMercy Health CtrComment:Random Glucose Reference Range is dependent on time and content of last meal. Glucose of more than 200 mg/dL in a nonstressed, ambulatory subject supports the diagnosis of Diabetes Mellitus. ADA recommended reference rangeNON-[facility] Blood Urea Eftlpvpr772 - 25 mg/dLMercy Health CtrOTIS R[facility] Creatinine0.75 0.60 - 1.20 mg/dLMercy Health CtrOTIS R[facility]E ESTIMATED GFR>60.0 [facility] Pixxdk407477 - 145 mmol/[facility] CtrOTIS R[facility] Potassium4.63.5 - 5.1 mmol/[facility] Gydygzrq40712 - 107 mmol/[facility] Ctr [facility] Carbon Dbtismu54.421.0 - 31.0 mmol/[facility] Ctr NONMIN[facility] Anion Gap9.26.0 - 15.0[facility] CtrOTIS [facility] Calcium9.68.6 - 10.3 mg/dLMercy Health CtrSpecimen (Source) Anatomical Location / LateralityCollection Method / VolumeCollection Time Received TimeTULSA C[facility] FOR [facility] [place] Plasma specimen or serum specimen or whole blood specimen 02/22/2025 10:13 AM EDT Narrative Authorizing ProviderResult TypeResult StatusModior COE BLOOD ORDERABLESFinal ResultPerforming OrganizationAddressCity/State/ZIP CodePhone Number [facility] [address] [place] [address], [facility] [address] [place] [address] * NON-[facility] HIE Lipid Panel (02/22/2025 10:13 AM EDT)ComponentValueRef RangeTest MethodAnalysis TimePerformed AtPathologist SignatureNON- HIE Ipumnlyueso614 140 - 200 mg/dLMercy Health CtrComment:Chol less than 200 mg/dl low risk Chol 201-239 mg/dl borderline risk Chol 240 mg/dl and greater high riskNON-[facility] HDL Vrjuzajrozl4884 - 92 mg/dLMercy Health Ctr Comment:HDL CHOL ATP-III CLASSIFICATION Cardiovascular Risk HDL > or equal to 60 mg/dL LOW HDL < 40 mg/dL HIGHNON-[facility] Triglyceride w/Zjcler8440 - 149 mg/dLMercy Health CtrComment:TRIG ATP III CLASSIFICATION TRIG less than 150 mg/dL Normal TRIG 150-199 mg/dL Borderline high FUHZ313-749 mg/dL High TRIG greater than 500 mg/dL Very high Standard traceable to the Center for Disease Conrtrol and Prevention (CDC) test method.NON- HIE LDL Cholesterol,Jwcqnusjdj553 - 100 mg/dLMercy Health CtrComment:LDL ATP III CLASSIFICATION LDL less than 100 mg/dL Optimal LDL 100-129 mg/dL Near or above optimal LDL 130-159 mg/dL Borderline high LDL 160-189 mg/dL High LDL greater than 189 mg/dL Very highNON- HIE VLDL HISVECUAQYJ98cz/dLMercy Health CtrNON- HIE Chol/HDL Ratio2.7<5.0Mercy Health CtrComment:PERFORMED BY:[facility] [place], [place] [id number] MEDICAL DIRECTORNGOZI DONALD M.D.Specimen (Source)Anatomical Location / LateralityCollection Method / VolumeCollection TimeReceived TimeTULSA CENTER FOR BEHAVIORAL HEALTH – [place] Plasma specimen or serum specimen or whole blood vliaicdw57/30/2025 10:13 AM EDT Narrative Authorizing ProviderResult TypeResult StatusRobi COE BLOOD ORDERABLESFinal ResultPerforming OrganizationAddressCity/State/ZIP CodePhone Number [facility] [address] [place] [address], [facility] [address] [place] [address] * NON-[facility] HIE Aspartate Amino Transferase (02/22/2025 10:13 AM EDT)ComponentValue Ref RangeTest MethodAnalysis TimePerformed AtPathologist SignatureNON- HIE Aspartate Amino Qttwoceipbt0088 - 39 U/[facility] CtrSpecimen (Source)Anatomical Location / LateralityCollection Method / VolumeCollection TimeReceived TimeTULSA CENTER FOR BEHAVIORAL [facility] – [place] Plasma specimen or serum specimen or whole blood izpehfrj39/30/2025 10:13 AM EDT Narrative Authorizing ProviderResult TypeResult StatusRobi COE BLOOD ORDERABLESFinal ResultPerforming OrganizationAddressCity/State/ZIP CodePhone Number [facility] [address] [place] [address], [facility] [address] [place] [address] * NON-[facility] HIE Alanine Aminotransferase (02/22/2025 10:13 AM EDT)ComponentValueRef RangeTest MethodAnalysis TimePerformed AtPathologist SignatureNON- HIE Alanine Vvjohvwzqqlcfoxh523 - 52 U/[facility] CtrSpecimen (Source)Anatomical Location / LateralityCollection Method / VolumeCollection TimeReceived TimeTULSA CENTER FOR BEHAVIORAL [facility] – [place] Plasma specimen or serum specimen or whole blood esrcxodg75/30/2025 10:13 AM EDT Narrative Authorizing ProviderResult TypeResult StatusRobi COE BLOOD ORDERABLESFinal ResultPerforming OrganizationAddressCity/State/ZIP CodePhone Number [facility] [address] [place] [address], [facility] [address] [place] [address] from Last [address] [place] [address] Care Teams Team MemberRelationshipSpecialtyStart DateEnd Familia Stanley MD [address] [place] [address] PCP - General06/01/19
--- OUTSIDE RECORDS SUMMARY | 2025-03-18 11:19 | XMS_ITS | Clinical Summary ---
Author Organization [facility] Address [address] [place] [address] Care Team Providers Care Manager Winter Name Role Phone Familia Stanley MD Primary Care Provider [phone] Camilo Lord MD Unavailable [phone] Allergies No known active allergies Medications MedicationSigDispense QuantityRefillsLast FilledStart DateEnd DateStatus ALPRAZolam (XANAX) 0.25 mg tablet Take 0.25 mg by mouth as needed.11/07/2014ctive temazepam (RESTORIL) 15 mg cap 15 mg at bedtime as needed.09/26/2014ctive aspirin, enteric coated (ASPIRIN, ENTERIC COATED) 81 mg EC tablet Take 81 mg by mouth once daily.Active MULTIVIT &MINERALS/FERROUS FUM (MULTI VITAMIN ORAL) Take by mouth once daily.Active VITAMIN E ORAL Take by mouth once daily.Active GLUCOSAMINE HCL/CHONDR TREVINO A NA (OSTEO BI-FLEX ORAL) Take by mouth once daily.Active CALCIUM CARBONATE/VITAMIN D3 (VITAMIN D-3 ORAL) Take by mouth once daily.Active CALCIUM ORAL Take by mouth once daily.Active ASCORBIC ACID (VITAMIN C ORAL) Take by mouth as needed.Active AMITRIPTYLINE HCL (ELAVIL ORAL) Take 75 mg by mouth once daily.Active carvedilol (COREG) 12.5 mg tablet TAKE 1 TABLET TWICE DAILY WITH MEALS 180 tablet Active lisinopril (ZESTRIL, PRINIVIL) 5 mg tablet TAKE 1 TABLET ONCE DAILY 90 tablet Active Active Problems ProblemNoted DateDiagnosed DatePVC (premature ventricular contraction)02/27/2017 Hypertension with goal blood pressure less than 140/90010/10/2015Pure hypercholesterolemiaChest painPremature beats, unspecifiedEssential hypertension, benign Family History Medical HistoryRelationCommentsHeartFatherHypertensionFatherHeartMother hypotension [Other]MotherRelationStatusCommentsFatherDeceasedMotherDeceased Social History Tobacco UseTypesPacks/DayYears UsedDateSmoking Tobacco: NeverSmokeless Tobacco: NeverAlcohol UseStandard Drinks/WeekCommentsYes0 (1 standard drink = 0.6 oz pure alcohol)occasionallyArea Deprivation IndexAnswerDate RecordedNational Score (1- 100), lower number is lower riskNot on file05/03/2020State Score (1-10), lower number is lower riskNot on file05/03/2020Data from: https://www.neighborhoodatlas.[facility].edu/. Last address used for calculationNot on file05/03/2020CommentsUnknownSex and Gender InformationValueDate RecordedSex Assigned at BirthNot on fileLegal SexFemale 05/03/2013 2:25 PM ESTGender IdentityNot on fileSexual OrientationNot on file Last Filed Vital Signs Vital SignReadingTime TakenCommentsBlood Csdsvztx363/8102/27/2018 10:35 AM EDT Jmucr990502/27/2018 10:35 AM GXHGrpaggxftjx81.2 ??C (97.1 ??F)10/10/2015 11:01 AM EDTRespiratory Zwyg0950 10:35 AM EDTOxygen Krkbuusbuv40%02/27/2018 10:35 AM EDTInhaled Oxygen Concentration--Wvgfhl65.7 kg (178 lb)02/27/2018 10:35 AM LCHAtrjhg448.1 cm (5' 5 )02/27/2018 10:35 AM EDTBody Mass Index29.6202/27/2018 10:35 AM EDT Plan of Treatment Health MaintenanceDue DateLast DoneCommentsAnxiety Hmdvnzgon97/04/1968Depression Momvgvnvi53/04/1968Hepatitis C Vkcjgoval42/04/1968DTaP,Tdap,Td Vaccine (1 - Tdap)1969Mammogram Zabkazbxp83/04/1990CT Oguwgampeszq01/04/1995Cologuard (FIT-DNA)02/26/19951302Aqnsabkhvqy67/04/1995Colorectal Cancer Usdglaakq23/04/1995 Diabetes Bdfiwepwf10/04/1995Fecal Occult Blood1995Lipid Screening 02/26/19957125Eymrazfnlwhuu55/04/1995Pneumococcal Vaccine: 50+ (1 of 1 - PCV) 02/27/2000Shingrix Vaccine (1 of 2)02/27/2000Bone Density Cxqqtzjef75/04/2015 Advance Directive Jkgjeeubjt58/01/2025ovid-19 Vaccine (1 - 2024-26 season) 2025Influenza Vaccine (#1)2025RSV Vaccine (1 - 1-dose 75+ series) 2025 Insurance Care Teams Team MemberRelationshipSpecialtyStart Date Familia Stanley MD PCP - GeneralFamily Jgkmukwu68/9/13 Camilo Lord MD [address] [facility] [address] [place] [id number] Primary Staff PhysicianCardiology08/11/18
--- OUTSIDE RECORDS SUMMARY | 2025-03-18 11:19 | XMS_ITS | Patient Health Record ---
Author Organization [facility] in [place] Address [address] [place] [address] Care Team Providers Care Proofsheet Corrector Name Role Phone Jam Stanley Primary Care Provider [phone] Allergies No Known Allergies Results Component Value Reference Range Notes UA DIP NONAUTO WO MICRO (810 02) - IN OFFICE Reviewed date:03/18/2025 10:45:12 AM Interpretation: Performing Lab: Notes/Report: COLOR Straw ERETWBUivamdhMEABXHPrCHDZFPEQCjGYODOM3QHRGTSCG GRAVITY1.010BLOOD+++PH6.5PROTEIN 100UROBILINOGENnNITRITEnLEUKOCYTE ESTERASE+++UA RANDOM W or MICROSCOPIC Reviewed date:02/01/2025 02:38:03 PM Interpretation: Performing Lab: Notes/Report: [facility] ,Color UrineYELLOWYELLOWClarity UrineCLEARCLEARSpecific [place] Urine>=1.030 1.005-1.025pH Urine5.05.0-9.0Protein UrineTRACENEG/TRACE mg/dLGlucose Urine UA NEGATIVENEGATIVE mg/dLBilirubin UrineSMALLNEGATIVEKetones Wihdu65IKOTGXUL mg/dL Blood UrineNEGATIVENEGATIVENitrite UrineNEGATIVENEGATIVEUrobilinogen Urine1.0 0.2-1.0 EU/dLLeukocyte Esterase UrineTRACENEGATIVEWBC Urine2-5NONE SEEN #/HPFRBC Urine0-20-2 #/HPFBacteria UrineTRACENONE SEEN #/HPFMucus UrineNONE SEENNONE SEEN Squamous Epithelial Cell UrineFEWNONE/RARE #/LPFCrystals Seen?SeenNone Seen #/HPFCalcium Oxalate Crystals UrineMODERATECast Seen?SEENNONE SEEN #/LPFHyaline Casts UrineFEWUrine Culture IndicatedALREADY ORDEREDPerforming Lab:see noteML - [facility] LBUrine Culture - [facility] Reviewed date:02/03/2025 07:50:06 PM Interpretation: Performing Lab: Notes/Report: [facility] ,Urine Culture - FRMCSee Below For Report 75,000 colonies/ml mixed Urine Culture - FR Urine Culture - FRMCbacterial skin contaminants 75,000 colonies/ml mixed Urine Culture - FR Urine Culture - [facility]2 Days 75,000 colonies/ml mixed Urine Culture - FR Urine Culture - [facility] 75,000 colonies/ml mixed Urine Culture - FR Urine Culture - [facility] colonies/ml mixed Urine Culture - [facility] Urine Culture - [address] [place] [address] 75,000 colonies/ml mixed Urine Culture - [facility] Performing Lab:see noteML - [facility] LBUA DIP NONAUTO WO MICRO (16642) - IN OFFICE Reviewed date:01/18/2025 10:41:48 AM Interpretation: Performing Lab: Notes/Report: COLORyellowCLARITYcloudyGLUCOSEnegBILIRUBINnegKETONEnegSPECIFIC GRAVITY1.015 JGEYUmwtnpFU6IQTCJYWweiqaAQODMCKZWGKVerwMGVFWIZnfnJPUJFMMEE ESTERASElargeUA (Urinalysis, Dipstix only - w/o micro) Reviewed date:04/12/2024 10:33:07 AM Interpretation: Performing Lab: Notes/Report: GLUCOSE-0 - 133 MG/DLALBUMIN-NEG - NEG MG/DLBILIRUBIN-NEG - NEG MG/DLSPECIFIC GRAVITY1.0001.001 - 1.035KETONES-NEG - NEG MG/DLBLOOD, UR+++PH, UR6.55 - 9 UROBILNOGEN0.20.2 - 1 MG/DLNITRITE-NEG - NEGESTERASE (MACHELLE)+++NEG - NEG MG/DL Reason For Referral No Information Medications Medication SIG (Take, Route, Frequency, Duration) Notes Start Date End Date Status ALPRAZolam 0.25 MG 1 tablet Orally TID PRN; Dura tion: 30 days 5ActiveDiclofenac Sodium 75 MG1 tablet as needed Orally Twice a day; Duration: 3ActiveCefdinir 300 MG2 capsules Orally once a day; Duration: 10 01/18/2025tiveLisinopril 40 MG1 tablet Orally Once a day; Duration: 90 daysActiveAmitriptyline HCl 75 MG1 tablet Orally Once a day; Duration: 90 daysActiveDiclofenac Potassium 50 MG1 tablet with food or milk as needed Orally TID; Duration: 30 08/12/2024tiveSpironolactone 25 MG1 tablet Orally QD; Duration: 30 daysActiveMetoprolol Tartrate 50 MGTAKE 1 TABLET BY MOUTH TWICE A DAY WITH FOOD; Duration: 90ActiveSimvastatin 20 mgTAKE 1 TABLET DAILY IN THE EVENINGActiveBactrim DS 800-160 MG1 tablet Orally bid; Duration: 10 03/18/2025tiveAlendronate Sodium 70 MGTAKE 1 TABLET BY MOUTH ONE TIME PER WEEK; Duration: 84Active Immunizations Vaccine Route Administration Date Status Comme nts Flu, Fluad (89721) 65 yrs an d older, single-dose syringe (1874-8859) Unknown 03/25/2024 Administered Pneumococcal (Pneumovax 23)Gofukws1008/13/2018Administered Social History Tobacco Use: Social History Observation Description Date Details (start date - stop date) Never Smoker NA - NA Tobacco Use/Smoking Question Answer Notes Patient is a nonsmoker Alcohol Screen (Audit-C) Question Answer Notes Did you have a drink containing alcohol in the p ast year? No Xeqbcq8IjahlmnbeqoegjTglerjswLHOMF-U (Standard) Question Answer Notes Did you have a drink containing alcohol in the p ast year? Yes How often did you have six or more drinks on one occasion in the past year?Never (0 point)How many drinks did you have on a typical day when you were drinking in the past year?1 or 2 drinks (0 point)How often did you have a drink containing alcohol in the past year?Monthly or less (1 point)Cergbh4DbqcohjgkqkqrrFazpfing Problems Problem Type SNOMED Code ICD Code Onset Dates Problem Status W/U Status Risk Notes Problem Essential hypertension (00381701 ) Essential (primary) hypertension (I10) ActiveconfirmedProblemAcute bronchitis (12998669)Acute bronchitis due to other specified organisms (J20.8)ActiveconfirmedProblemOsteoarthritis of knee (505290901)Unilateral primary osteoarthritis, left knee (M17.12)Activeconfirmed ProblemContracture of joint of left ankle (disorder) (740407997375238) Contracture, left ankle (M24.572)ActiveconfirmedProblemPlantar fascial fibromatosis (36424510)Plantar fascial fibromatosis (M72.2)Activeconfirmed ProblemMetatarsalgia of right foot (212472509111676)Metatarsalgia, right foot (M77.41)ActiveconfirmedProblemPain in right foot (023871405342571)Pain in right foot (M79.671)ActiveconfirmedProblemPain in left foot (232817139490735)Pain in left foot (M79.672)ActiveconfirmedProblemStress fracture of right foot (disorder) (96283739565397313)Stress fracture, right foot, subsequent encounter for fracture with routine healing (M84.374D)ActiveconfirmedProblemNonunion of fracture (242360235)Stress fracture, left foot, subsequent encounter for fracture with nonunion (M84.375K)ActiveconfirmedProblemContusion of right foot (22593611197100738)Contusion of right foot, subsequent encounter (S90.31XD) ActiveconfirmedProblemFatigue (68148306)Fatigue (R53.83)ActiveconfirmedProblem Insomnia (709464733)Insomnia (G47.00)ActiveconfirmedProblemKnee pain (0995124511)Knee pain (M25.569)ActiveconfirmedProblemOsteoarthritis of knee (390067225)Knee osteoarthritis (M17.9)ActiveconfirmedProblemArthralgia of the ankle and/or foot (008050312)Right ankle pain (M25.571)ActiveconfirmedProblem Hallux valgus of right foot (7704036684)Hallux valgus of right foot (M20.11) ActiveconfirmedProblemAcquired hammer toe of right foot (5889347034031355)Hammer toe of right foot (M20.41)ActiveconfirmedProblemVenous varices (048719262) Complicated varicose veins (I83.899)ActiveconfirmedProblemPure hypercholesterolemia (304948276)High blood cholesterol (E78.00)Activeconfirmed ProblemAge-related osteoporosis (362057223)Osteoporosis, unspecified osteoporosis type, unspecified pathological fracture presence (M81.0)Active confirmedProblemLocalized, primary osteoarthritis of the ankle and/or foot (691469400)Arthritis, midfoot (M19.079)Activeconfirmed Vital Signs Blood pressure diastolic 92 mm Hg 11/15/2024 Qqldpa02 in11/15/2024lood pressure rxsmxize010 mm Hg11/15/20243700Buvsiz357.2 lbs 11/15/2024BMI32.65 kg/m211/15/2024 Encounters Encounter Location Date Provider Diagnosis [facility] [address] [place] [address] 08/12/2024 Jam [facility] [place] [address] 08/26/2024[facility] [place] [address]/Doug HoyEssential (primary) hypertension F08[facility]mpl[facility] [place] [address]/ Jam MargotI (urinary tract infection) N39.0[facility] [place] [address]/01/2025[facility] [place] [address]/Doug HoyUTI (urinary tract infection) N39.0[facility] [place] [address]/[facility] [place] [address]/ou[facility] [place] [address]/10/2024Doug HoyEssential (primary) hypertension G64QmgmkqnMemorial Hospital Central[address] [place] [address]/11/2024Doug HoyEssential (primary) hypertension I[address] [place] [address] [place] [address] 07/20/2024Doug HoyBVH [facility] [place] [address]/10/2024Doug HoyEncounter for Medicare annual wellness exam Z00.00 [place] [address] [place] [address] 03/18/2025Doug HoyBurning with urination R30.0 and Urinary frequency R35.0 [place] [address] [place] [address] 04/12/2024oug HoyDysuria R30.0[place] [address] [place] [address]/Doug HoyDysuria R30.0[place] [address] [place] [address]/Doug HoyLeft knee pain M25.562 and Knee osteoarthritis M17.9[place]yler [place] [address] [place] [address]/Doug HoyEssential (primary) hypertension I10 and Insomnia G47.00[place] [address] [place] [address]/Doug HoyUnilateral primary osteoarthritis, left knee M17.12 Assessments Encounter Date Diagnosis (ICD Code) Assessment Notes Treatment Notes Treatment Clinical Notes Section Notes 04/12/2024 Dysuria (ICD-10 - R30.0) 07/29/2024Encount for Medicare annual wellness exam (ICD-10 - Z00.00) 07/14/2024Left knee pain (ICD-10 - M25.562)07/14/2024Knee osteoarthritis (ICD-10 - M17.9)07/21/2024Unilateral primary osteoarthritis, left knee (ICD-10 - M17.12) 11/15/2024Essential (primary) hypertension (ICD-10 - I10)didnt take med today 11/15/2024Insomnia (ICD-10 - G47.00)prn meds aand the znemlreehtukdj09/26/2025 Dysuria (ICD-10 - R30.0)03/18/2025urning with urination (ICD-10 - R30.0) 03/18/2025Urinary frequency (ICD-10 - R35.0)05/31/2024Essential (primary) hypertension (ICD-10 - I10)06/01/2024Essential (primary) hypertension (ICD-10 - I10)11/19/2024Essential (primary) hypertension (ICD-10 - I10)01/18/2025UTI (urinary tract infection) (ICD-10 - N39.0)03/18/2025UTI (urinary tract infection) (ICD-10 - N39.0) Plan Of Treatment Pending Test Test Name Order Date CMP (COMPLETE METABOLIC PANEL) 4 UA (URINALYSIS, COMPLETE) 01/18/2025 UA (URINALYSIS, COMPLETE) 03/18/2025 XR Thoracic Spine AP and Lateral (dorsal ) 10/28/2022 Urine Culture 01/18/2025 Urine Culture 03/18/2025 Cologuard 03/10/2024 CBC W/AUTO DIFF 02/25/2024 STOOL OCCULT BLOOD 02/25/2024 US Renal and Bladder 03/18/2025 GLYCOHEMOGLOBIN A1C 11/29/2022 GLYCOHEMOGLOBIN A1C 02/25/2024 LIPID PROFILE 02/25/2024 URINE MICROSCOPIC ONLY 01/18/2025 URINE MICROSCOPIC ONLY 03/18/2025 THYROID PANEL (T4/TSH/FREE T3) 3 THYROID PANEL (T4/TSH/FREE T3) 4 Insurance Providers Payer Name Payer Address Payer Phone Subscriber Number Group Number Insured Name Patient Relationship to Insured Coverage Start Date Coverage End Date [place]IC[place] [address] [place] [address] [id number] StockmasterDamionelf - patient is the [id number] 2015[facility] [address] [place], [place] [id number] FeliciamastDamion booelf - patient is the [id number] 2024 Medications Administered Medication Instructions Date of Administration Dosage Notes Lidocaine HCl mLTriamcinolone 40 mg/ml0 mg Medical (General) History Medical History History ICD Code Stress fracture, left foot, subsequent e ncounter for fracture with nonunion M84.375K Pain in left foot M79.672 Arthritis, midfoot M19.079 Right ankle pain M25.571 Contusion of right foot, subsequent enco unter S90.31XD Pain in right foot M79.671 Hallux valgus of right foot M20.11 Hammer toe of right foot M20.41 Stress fracture, right foot, subsequent encounter for fracture with routine healing M84.374D Metatarsalgia, right foot M77.41 Stress fracture, left foot, initial enco unter for fracture M84.375A Osteoporosis, unspecified os teoporosis type, unspecified pathological fracture presence M81.0 Complicated varicose veins I83.899 Essential (primary) hypertension I10 High blood cholesterol E78.00 Surgical History Surgery Date(Month/Year) Vein Ligation and Stripping Bilateal Low er Extremities Cataract Extractions Xsimzikat4369Jhvsx HysterectomyHospitalization History Reason Date(Month/Year) Just for surgery
--- OUTSIDE RECORDS SUMMARY | 2025-03-18 11:19 | XMS_ITS | Encounter Summary ---
Author Organization [facility] Address [address] [place] [address] Phone Care Team Providers Care Entry Level Management Name Role Phone Familia Stanley MD Primary Care Provider [phone] Encounter Details DateTypeDepartmentCare Team (Latest Contact Info)Fpzjpkrjkzy99/10/2025Travel Social History Tobacco UseTypesPacks/DayYears UsedDateSmoking Tobacco: NeverSmokeless Tobacco: NeverAlcohol UseStandard Drinks/WeekCommentsNot Currently0 (1 standard drink = 0.6 oz pure alcohol)PHQ-2AnswerDate RecordedPatient Health Questionnaire-2 Score 3CommentsUnknownSex and Gender InformationValueDate Recorded Sex Assigned at BirthNot on fileLegal IswIiirhy83/26/2022 3:19 AM ESTGender IdentityNot on fileSexual OrientationNot on filedocumented as of this encounter Functional Status * BPAnswerDate of CxlzgvcymaTkdnvn816/7403/04/2025 10:32 AM Judi Gudino RN * PulseAnswerDate of UvqnczrdveMbycgn8049/10/2025 10:32 AM Judi Gudino RN * Communicable Disease ScreeningQuestionAnswerDate of AssessmentAuthorDo you have any of the following new or worsening symptoms?None of these03/04/2025 10:23 AM Esha Rogers documented as of this encounter Plan of Treatment DateTypeDepartmentCare Team (Latest Contact Info)Yjsitejrnru07/01/2026 10:30 AM EDTOffice Visit [facility] [address] [facility] [address] [place] [address] Robi Tanner MD [address] [facility] [place] [address] documented as of this encounter Visit Diagnoses Not on filedocumented in this encounter Additional Health Concerns AssessmentNoted TimeA fall risk assessment has been completed for the patient 03/04/2025 10:31 AM EDTdocumented as of this encounter Care Teams Team MemberRelationshipSpecialtyStart DateEnd Date Familia Stanley MD [address] [facility] [place] [address] PCP - General06/01/19documented as of this encounter
[2025-03-18 12:08] LABS: Glucose Urine UA NEGATIVE (NEGATIVE)
[2025-03-18 12:23] LABS: Cast Seen? NONE SEEN #/LPF (NONE SEEN); Crystals Seen? None Seen #/HPF (None Seen); Urine Culture Indicated ALREADY ORDERED
== END 2025-03-18 11:14 | disposition home or self-care (01) ==
LOC: LAB 11:14
PROVIDERS: PCP Family Medicine; Visit Provider Family Medicine
DX: N39.0 Urinary tract infection, site not specified (principal)
CPT/HCPCS: 81001; 87086

== ENCOUNTER 2025-03-29 07:56 | Outpatient (OUT) | payer MEDICARE, OTHER, SELFPAY ==
--- OUTSIDE RECORDS SUMMARY | 2025-03-18 05:30 | XMS_ITS ---
Author Organization The [facility] in [place] Address [address] [place] [address] Care Team Providers Care Stud Setter Name Role Phone Jam Stanley Primary Care Provider Results Component Value Reference Range Notes UA DIP NONAUTO WO MICRO (810 02) - IN OFFICE Reviewed date:03/18/2025 10:45:12 AM Interpretation: Performing Lab: Notes/Report: COLOR Straw RWKXVFSxtlvlnBAMJGPStZHDPJZQYMcAEBDBL8QWPULSST GRAVITY1.010BLOOD+++PH6.5PROTEIN 100UROBILINOGENnNITRITEnLEUKOCYTE ESTERASE+++ REASON FOR VISIT UTI- burning with urination and urinary frequency Encounters Encounter Location Date Provider Diagnosis [facility] [id number] [place] [address] 03/18/2025 Jam Stanley Burning with urinati on R30.0 and Urinary frequency R35.0 Assessments Encounter Date Diagnosis (ICD Code) Assessment Notes Treatment Notes Treatment Clinical Notes Section Notes 03/18/2025 Burning with urination (ICD-10 - R30.0) 03/18/2025Urinary frequency (ICD-10 - R35.0) Plan Of Treatment No Information Progress Notes * Ahsan CHAVEZOB:08/1949 (75 yo F)Acc No.[id number]:03/18/2025 Nurse Visit Patient: Kay EVANS :?Familia Stanley ([facility]), MDDOB:1950???Age: 75 Y???Sex:FemaleDate:03/18/2025Phone:[phone]:[address] [place] [address] [address], [place], [id number] In:10:20 AM ESTCheck Out:10:45 AM EST Subjective: * Chief Complaints: * U TI- burning with urination and urinary frequency * Active Problem List M77.41 Metatarsalgia, right foot Modified On:01/28/2023 Status:enolmeyeaH62.671Pain in right foot Modified On:07/22/2022 Status:epsayylndW69.672Pain in left foot Modified On:02/11/2023 Status:ebmvbjzekH05.374DStress fracture, right foot, subsequent encounter for fracture with routine healing Modified On:07/22/2022 Status:meweqrdpwD59.31XDContusion of right foot, subsequent encounter Modified On:07/22/2022 Status:mzzzkamrtA14.571Right ankle pain Modified On:07/22/2022 Status:yezzvqnynR25.375KStress fracture, left foot, subsequent encounter for fracture with nonunion Modified On:07/31/2022 Status:kkyigjnjdY76.079Arthritis, midfoot Modified On:07/31/2022 Status:tntdomfccC20.11Hallux valgus of right foot Modified On:07/22/2022 Status:muhzxnlrlN90.41Hammer toe of right foot Modified On:07/22/2022 Status:crodbnrxzH89.0Osteoporosis, unspecified osteoporosis type, unspecified pathological fracture presence Modified On:07/22/2022 Status:amuzkprmdN25.899Complicated varicose veins Modified On:07/22/2022 Status:bbdepcqdzO08Hylhowwxy (primary) hypertension Modified On:05/02/2023 Status:gcmpssddtM19.00High blood cholesterol Modified On:07/22/2022 Status:yufdcihkiF40.8Acute bronchitis due to other specified organisms Modified On:10/02/2022 Status:hvlsniclbL16.2Plantar fascial fibromatosis Modified On:09/19/2023W/U Status:bfdjtonsiH20.572Contracture, left ankle Modified On:02/11/2023/U Status:frwxqnuhwE45.12Unilateral primary osteoarthritis, left knee Modified On:02/07/2023W/U Status:clqkvhpfhM40.83Fatigue Modified On:02/25/2024W/U Status:oppbzhlzhQ19.569Knee pain Modified On:07/14/2024/U Status:tnmtisdwxH83.9Knee osteoarthritis Modified On:07/14/2024/U Status:iabqopnrmT64.00Insomnia Modified On:11/15/2024/U Status:confirmed * Medical History: * Surgical History: * Hospitalization/Major Diagno stic Procedure: * Medications: Objective: * Vitals: Assessment: * Assessment: 1.?Burning with urination - R30.0 (Primary)???2.?Urinary frequency - R35.0& #160;?? Plan: * Treatment: ?LAB: UA DIP NONAUTO WO MICRO (23429) - IN OFFICE (Collection Date & Time - 03/18/2025)2.?Urinary frequency?LAB: UA DIP NONAUTO WO MICRO (51107) - IN OFFICE (Collection Date & Time - 03/18/2025) * Labs: * L ab: UA DIP NONAUTO WO MICRO (91318) - IN OFFICE (Collection Date & Time - 03/18/2025) ?ValueReference Range?COLORStraw * C LARITY cloudy * G LUCOSE n * B ILIRUBIN n * K ETONE 5 * S PECIFIC GRAVITY 1.010 * B LOOD +++ * P H 6.5 * P ROTEIN 100 * U ROBILINOGEN n * N ITRITE n * L EUKOCYTE ESTERASE +++ * Procedure Codes: 8 1002 URINALYSIS WO MICRO * * Sign off status: CompletedVisit Status:?CHK (Check Out) true * Provider: Pierce Stanley ([facility])MD Date: Generated for Printing/Faxing/eTransmitting on:?03/29/2025 07:59 AM EST
--- OUTSIDE RECORDS SUMMARY | 2025-03-18 05:45 | XMS_ITS ---
Author Organization [facility] in [place] Address [address] [place] [address] Care Team Providers Care Logistics System Engineer Name Role Phone Jam Stanley Primary Care Provider REASON FOR VISIT US Medications Medication SIG (Take, Route, Frequency, Duration) Notes Start Date End Date Status Bactrim DS 800-160 MG 1 tablet Orally bid; Durat ion: 10 days 5Active Encounters Encounter Location Date Provider Diagnosis [facility] [address] [place] [phone] 03/18/2025 Jam Stanley UTI (urinary tract infection) N39.0 Assessments Encounter Date Diagnosis (ICD Code) Assessment Notes Treatment Notes Treatment Clinical Notes Section Notes 03/18/2025 UTI (urinary tract infection) (I CD-10 - N39.0) Plan Of Treatment Medication Medication Name Sig Start Date Stop Date Notes Bactrim DS 800-160 MG 1 tablet Orally bid; Duration: 1 0 days 03/18/2025 Pending Test Test Name Order Date UA (URINALYSIS, COMPLETE) 03/18/2025 Urine Culture 03/18/2025 US Renal and Bladder 03/18/2025 URINE MICROSCOPIC ONLY 03/18/2025 Progress Notes * Ahsan NEWTONOB:08/1949 (75 yo F)Acc No.[id number]:03/18/2025 Patient:?CLIVEVero BECKMANKay :1950???Age:75 Y???Sex:FemalePhone:[phone] Address:[address] [place] [address], [place] [address] * Refills Start Bactrim DS Tablet, 800-160 MG, Orally, 20 Tablet, 1 tablet, bid, 10 days, Refills=0 Subjective: * Chief Complaints: * U S * Medical History: * Surgical History: * Hospitalization/Major Diagno stic Procedure: * Medications: Objective: * Vitals: * Physical Examination: ??? Assessment: * Assessment: 1.?UTI (urinary tract infection) - N39.0 (Primary)??? Plan: * Treatment: ?LAB: UA (URINALYSIS, COMPLETE) ?LAB: Urine Culture ?LAB: URINE MICROSCOPIC ONLY ?Imaging: US Renal and Bladder* with PVR 2.?Others? Start Bactrim DS Tablet, 800-160 MG, 1 tablet, Orally, bid, 10 days, 20 Tablet, Refills 0.? * Procedure Codes: * true * Date:?Generated for Printing/Faxing/eTransmitting on:?03/29/2025 07:59 AM EST
--- OUTSIDE RECORDS SUMMARY | 2025-03-19 19:08 | XMS_ITS | Continuity of Care Document ---
Author Organization [facility] Address [address] [place] [address] Phone Care Team Providers Care Manager Environmental Health Name Role Phone Familia Stanley MD Primary Care Provider [phone] Familia Stanley MD Attending Provider [phone] Robi Tanner MD Attending Provider Care Teams Patient Care Team Team Status: Active Member Role/Relationship Status Renetta Stanley MD Primary Care Provider Active Visit Care Team Team Status: Inactive Member Role/Relationship Status Renetta Stanley MD Primary Care Provider Active Start: February 01, 2025 End: February 01, 2025Joey Friedman ProviderActiveStart: February 01, 2025 End: February 01, 2025 Visit Care Team Team Status: Inactive Member Role/Relationship Status Renetta Stanley MD Primary Care Provider Active Start: February 22, 2025 End: February 22, 2025Joey Coon ProviderActiveStart: February 22, 2025 End: February 22, 2025 Patient Care Team Team Status: Inactive Member Role/Relationship Status Renetta Stanley MD Primary Care Provider Active Start: March 18, 2025 End: March 18, 2025Joey Friedman ProviderActiveStart: March 18, 2025 End: March 18, 2025 Chief Complaint and Reason for Visit Chief Complaint Admit Date Unknown February 01, 2025 1:48pm E78.5 February 22, 2025 10:03am Unknown October 24th, 2025 1 1:23am Social History Smoking Status Unknown if ever smoked Observation Status Observation Response Date of Response Legal Sex Female (finding) [facility] 1949 Procedures Procedure Date Performed Status Urine Culture February 01, 2025 completed Urine Culture March 18, 2025 active Relevant Diagnostic Tests and/or Laboratory Data Laboratory Results Test Collection Date/Time Result Date/Time Result Interpretation Reference Range Result Comment Performing Site Glucose Level February 22, 2025 10:13am January 262024 11:58am 89 mg/dL 70-100ADA recommended reference rangeRandom Glucose Reference Range is dependent on time and content of last meal. Glucose of more than 200 mg/dL in a nonstressed, ambulatory subject supports the diagnosisof Diabetes Mellitus. [facility] [id number] [address] [facility] [address]Mohkk Urea NitrogenSeptember 2024 10:13amSeptember 2024 11:58am17 mg/dL7-25[facility] [id number] [address] [facility] [address]WiqvoqiowsLiipbhcde 2024 10:13amSeptember 2024 11:58am0.75 mg/dL0.60-1.20[facility] [id number] [address] [facility] [address]Oqoqgartu GFR (CKD-EPI)February 22, 2025 10:13amSeptember 2024 11:58am> 60.0 mL/MinMount Carmel Health System Ctr [id number] [address] [facility] [address]Olrvbj LevelSeptember 2024 10:13amSeptember 2024 11:49kl684 mmol/H068-257UeqaduaueMount Carmel Health System Ctr [id number] [address] [facility] [address]Yodxusjgd LevelSeptember 2024 10:13amSeptember 2024 11:58am4.6 mmol/L3.5-5.1FTriHealth [facility] [id number] [address] [facility] [address]Bhiqoyus LevelSeptember 2024 10:13amSeptember 2024 11:75ps966 mmol/D81-189PqdpstnncMount Carmel Health System [facility]tr [id number] [address] [facility] [address]Dkrund Dioxide LevelSeptember 2024 10:13amSept2024 11:58am30.4 mmol/L21.0-31.0[facility] [id number] [address] [facility] [address]Cdoio GapSeptember 2024 10:13amSeptember 2024 11:58am9.2 mEq/L6.0-15.0[facility] [id number] [address] [facility] [address]Xjyfisz LevelSeptember 2024 10:13amSeptember 2024 11:58am9.6 mg/dL8.6-10.3FTriHealth [facility] [id number] [address] [facility] [address]Sltebbvgx Amino Transf (AST/SGOT)February 22, 2025 10:13am February 22, 2025 11:58am28 U/V79-19AsaxxofkeMount Carmel Health System [facility]tr [id number] [address] [facility] [address]Zailhbe Aminotransferase (ALT/SGPT)February 22, 2025 10:13am February 22, 2025 11:58am30 U/L7-52[facility] [id number] [address] [facility] [address]Ifiywymbnez LevelSeptember 2024 10:13amSept2024 11:42vc034 mg/gH945-296Xpxm less than 200 mg/dl low riskChol 201-239 mg/dl borderline riskChol 240 mg/dl and greater high riskMount Carmel Health System [facility]tr [id number] [address] [facility] [address]RBG CholesterolSeptember 2024 10:13amSept2024 11:58am60 mg/cR66-81RZB CHOL ATP-III CLASSIFICATION Cardiovascular RiskHDL > or equal to 60 mg/dL LOWHDL < 40 mg/dL [facility] [id number] [address] [facility] [address]Ftrzxsendajaz LevelSeptember 2024 10:13amSept2024 11:61ip139 mg/dL0-149TRIG ATP III CLASSIFICATIONTRIG less than 150 mg/dL NormalTRIG 150-199 mg/dL Borderline highTRIG 200-500 mg/dL High TRIG greater than 500 mg/dL Very highStandard traceable to the Center for Disease Conrtrol and Prevention (CDC) test method.[facility] [id number] [address] [facility] [address]GWM Cholesterol, CalculatedSeptember 2024 10:13am February 22, 2025 11:58am78 mg/dL0-100LDL ATP III CLASSIFICATIONLDL less than 100 mg/dL OptimalLDL 100-129 mg/dL Near or above optimalLDL 130-159 mg/dL Borderline highLDL 160-189 mg/dL HighLDL greater than 189 mg/dL Very high [facility] [id number] [address] [facility] [address]IPMG CholesterolSeptember 2024 10:13amSeptember 2024 11:58am23 mg/dLMount Carmel Health [facility] [id number] [address] [facility] [address]Bsafpohxmke/HDL RatioSeptember 2024 10:13amSeptember 2024 11:58am2.7<5.0[facility] [id number] [address] [facility] [address]Ecbhbvuo Creatinine Clearance (ChemSeptember 2024 10:13am February 22, 2025 11:58amN/AFTriHealth [facility] [id number] [address] [facility] [address] Microbiology Results Procedure Source Result Collection Date/Time Result Date/Time Result Comment Performing Site Urine Culture Urine 2 Days February 01, 2025 1: 48pm February 03, 2025 12:37pm [facility] [id number] [address] [facility] [address] Advance Directives Advance Directive Response Recorded Date/ Time Advance Directives No June 12:05pm Insurance Providers Guarantor Kay Velazquez er Address [address] [place] [address]Adinmga Info.Home Phone: Coverage Status Update:2025 Payer Group Member ID Coverage Type Subscriber Relationship to Subscriber Effective Date Expiration Date Daryl HAUSER/YOSI Retired Id: [id number] A Stockmaster Id: [id number] [facility] [place] [address] Home Phone: [employer] [id number] A Stockmaster Id: [id number] [address] [place], [place] [address] Home Phone: [employer] Nonpatient [id number] A Stockmaster Id: [id number] [facility] [place] [address] Home Phone: Sel[facility]ly [facility] Id: Scott [id number] A Stockmaster Id: [id number] [address] [place], [place] [address] Home Phone: Selb Encounters Encounter Location(s) Arrival/Admit Date Discharge/Departure Date Discharge/Departure Disposition Provider(s) Departed Referred -LAB [facility] February 01, 2025 1:48pm February 01, 2025 1:49pm Discharged to home care or self care (routine discharge) Lakhwinder Estes MD Departed Clinical -Lab [facility] February 22, 2025 10:03am February 22, 2025 10:04am Discharged to home care or self care (routine discharge) Robi Tanner MD Departed Referred -LAB [facility] March 18, 2025 11:23am March 18, 2025 11:24am Discharged to home care or self care (routine discharge) Lakhwinder Estes MD Plan of Treatment Future Tests Future scheduled test information is unavailable Pending Tests Test Name Ordered Date Scheduled Date Urine Culture March 18, 2025 11:23am Future Visits Future appointment information is unavailable Future Procedures Procedure Name Ordered Date Scheduled Date Urine Culture March 19, 2025 5:26am Octobe r 2024 11:23am Future Medications Future medication information is unavailable Patient Instructions Patient instructions are unavailable
--- NOTE | 2025-03-29 07:58 | US_ITS ---
The [address] [address] Patient Name: HECTOR CHAVEZ MRN: [id number] date: 1950 Sex: F Assigned Patient Location: US Current Patient Location: US Accession/Order Number: [id number] Exam Date: 03/29/2025 08:00 Report Date: 03/29/2025 09:56 At the request of: ZENY SIMS MD Procedure: US renal bladder BILATERAL RENAL AND BLADDER ULTRASOUND CLINICAL HISTORY: Urinary Tract Infection COMPARISON: None Estimation of renal size is approximately 9.2 cm on the right and 10.7 cm on the left. No shadowing calculi or hydronephrosis are identified. No renal mass lesions were imaged. There is no perinephric fluid. The urinary bladder is partially distended with a volume of 103 mL. The urinary bladder wall is borderline thickened. No intraluminal abnormalities are seen. Bilateral ureteral jets are visualized. The post void bladder residual is 3 mL.. US/US renal bladder IMPRESSION: NO OBSTRUCTIVE UROPATHY. BORDERLINE THICKENED URINARY BLADDER WALL. Impression dictated by: Hilary Gomez M.D. 03/29/2025 9:56 AM Dictation Location: [place] [address] Electronically authenticated by: [id number] Y Date: 03/29/2025 09:56
--- OUTSIDE RECORDS SUMMARY | 2025-03-29 07:58 | XMS_ITS | CCD ---
Author Organization [facility] Care Team Providers Care Metal Model Builder Name Role Phone CAMILO LANTIGUA Unavailable Unavailab [...] Toma vailable MISC, DOCTOR Primary Care Unavailable Zeyn Stanley MD Primary Care Provider [phone] Huma Shannon Admitting Unavailable Huma Shannon Attending Unavailable Huma Shannon Referring Unavailable Federico FRANCIS Attending Unavailable Zeny Stanley Referring Unavailable MD Zeny Stanley Primary Care Provider [phone] MD Zeny Stanley Attending Provider MD Bradly Tanner Referring Provider Huma Shannon Admitting Unavailable Huma Shannon Attending Unavailable Huma Shannon Referring Unavailable Neptali Islas Attending Unavailable Neptali Islas Admitting Unavailable Ananth Valentine V. Primary Care Unavailable Neptali Islas Attending Unavailable Neptali Islas Admitting Unavailable Dennis, Ananth Sebastian Primary Care Unavailable Dennis, Ananth Sebastian Primary Care Unavailable Neptali Islas Attending Unavailable Neptali Islas Admitting Unavailable Ananth Valentine V. Primary Care Unavailable Ananth Valentine V. Admitting Unavailable Ananth Valentine V. Attending Unavailable Dennis, Ananth Sebastian Primary Care Unavailable Ananth Valentine V. Attending Unavailable Ananth Valentine V. Admitting Unavailable Ananth Valentine V. Primary Care Unavailable Ananth Valentine V. Admitting Unavailable Ananth Valentine V. Attending Unavailable Neptali Islas Attending Unavailable Ananth Valentine V. Primary Care Unavailable Neptali Islas Admitting Unavailable Neptali Islas Attending Unavailable Neptali Islas Admitting Unavailable Ananth Valentine V. Primary Care Unavailable [place], Ananth Sebastian Primary Care Unavailable ColeharborAnanth V. Admitting Unavailable Ananth Valentine V. Attending Unavailable Neptali Islas Attending Unavailable Neptali Islas Admitting Unavailable ColeharborAnanth V. Primary Care Unavailable Lucía AUGUSTINE, Manolo Dan Attending Unavailable Zeny Stanley MD Primary Care Provider Zeny Stanley MD Attending Provider Bradly Tanner MD Attending Provider Zeny Stanley MD Primary Care Provider BRADLY TANNER Attending Unavailable BRADLY TANNER Referring Unavailable ZENY STANLEY Primary Care Unavailable BRADLY TANNER Attending Unavailable BRADLY TANNER Referring Unavailable ZENY STANLEY Primary Care Unavailable Zeny Stanley Admitting Unavailable Zeny Stanley Primary Care Unavailable Zeny Stanley Attending Unavailable Zeny Stanley Primary Care Unavailable Zeny Stanley Attending Unavailable Zeny Stanley Admitting Unavailable Zeny Stanley Primary Care Unavailable Bradly Tanner Admitting Unavailable Bradly Tanner Attending Unavailable Medications Current Medications MedicationDrug Class(es)DatesSig (Normalized)Sig (Original)alendronic acid 70 mg oral tablet (9 sources)BisphosphonateStart: 81-30-9592fscv 1 tablet by mouth every week Fosamax 70 mg oral tablet 70 mg = 1 tab(s), Oral, qWeek, Refills(s) 0, Prophylaxis Start Date: 06/16/18 Status: Ordered Repeat number: 1 End: 27-95-7146zjaxpwgtyxm (Fosamax) 70 mg tablet Take 1 tablet (70 mg) by mouth every 7 days. 03/19/2024 Discontinued (Med List Cleanup)ALPRAZolam 0.25 mg oral tablet (9 sources)BenzodiazepineStart: 52-29-2818iezr 1 tablet by mouth three times daily as needed for anxietyalprazolam 0.25 mg Tab 0.25 mg = 1 tab(s), Oral, TID, PRN as needed for anxiety, Refills(s) 0 StartDate: 05/09/23 Status: Ordered Repeat number: 1amitriptyline hydrochloride 75 mg oral tablet (10 sources)Tricyclic AntidepressantStart: 27-76-8848wbii 75 mg by mouth once daily at bedtimeamitriptyline 75 mg, Oral, Once a day (at bedtime), Refills(s) 0, Anxiety Start Date: 06/17/18 Status: Ordered Repeat number: 1aspirin 81 mg delayed release oral tablet (4 sources)Platelet Aggregation Inhibitor, Nonsteroidal Anti-inflammatory Drug Start: 58-13-9572xxpx 1 tablet by mouth once dailyaspirin 81 mg Oral EC Tab 81 mg = 1 tab(s), Oral, Daily, Refills(s) 0 Start Date: 05/20/23 Status: Ordered Repeat number: 1Start: 49-20-3045ovit 81 mg by mouth once dailyaspirin 81 mg, Oral, Daily, Refills(s) 0, Blood Thinner Start Date: 06/16/18 Status: Ordered Calcium (1 source)Phosphate Binder, CalciumStart: 35-77-3906krdt 1250 mg by mouth once dailycalcium calcium, 1,250 mg, Oral, Daily Start Date: 06/16/18 Status: Ordered calcium citrate 950 mg oral tablet (1 source)Start: 04-26-2859ulsr 1 mg by mouth twice dailycalcium (as calcium citrate) 200 mg oral tablet mg tab(s), Oral, BID, Refills(s) 0 Start Date: Status: OrderedEnvive oral capsule (4 sources)Start: 45-62-4580sdzx 8 capsules by mouth onceEnvive oral capsule See Instructions, 8 cap(s), Refill(s) 0, samples given to patient (Rx), Per kingston garcia's instructions. Start Date: 07/24/21 Status: Ordered Quantity: 8.0 Unit: cap(s) Repeat number: 1Start: 65-09-4008erez 8 capsules by mouth onceEnvive oral capsule See Instructions, 8 cap(s), Refill(s) 0, samples given to patient (Rx), Per physician's instructions. Start Date: 07/24/21 Status: Orderedlisinopril 40 mg oral tablet (11 sources)Angiotensin Converting Enzyme InhibitorStart: 26-62-8626rzjr 1 tablet by mouth once dailylisinopril 40 mg Tab 40 mg = 1 tab(s), Oral, Daily, Refills(s) 0 Start Date: 05/09/23 Status: Ordered Repeat number: 1Start: 11-16-2021 End: 37-56-1047fdhu 1 tablet by mouth once dailylisinopril 20 mg tablet Take 1 tablet (20 mg) by mouth once daily. 11/16/2021 03/19/2024 Discontinued (Med List Cleanup)Start: 01-65-1929losw 5 mg by mouth once dailylisinopril 5 mg, Oral, Daily, Refills(s) 0, High blood pressure Start Date: 06/17/18 Status: Orderedtake 1 tablet by mouth once dailyLisinopril 10 MG Oral Tablet TAKE 1 TABLET DAILY DIRECTED. Quantity: 0 Refills: 0 Ordered: 23-Feb-2021 DO ActiveMAGNESIUM GLUCONATE (1 source)Start: 20-64-4043jpzl 1 mg by mouth twice dailyMag-G mg, Oral, BID, Refills(s) 0 Start Date: 10/14/19 Status: Orderedmagnesium oxide 400 mg oral tablet (7 sources)Start: 14-99-2384cgvd 2 tablets by mouth once dailymagnesium oxide (Mag-Ox) 400 mg (241.3 mg magnesium) tablet Indications: Paroxysmal atrial tachycardia , Premature ventricular contractions TAKE 2 TABLETS BY MOUTH EVERY DAY 180 tablet 3 04/29/2024 ActiveStart: 53-27-3984dwdl 2 tablets by mouth once dailymagnesium oxide (Mag-Ox) 400 mg (241.3 mg magnesium) tablet Indications: Paroxysmal atrial tachycardia (CMS-HCC) , Premature ventricular contractions TAKE 2 TABLETS BY MOUTH EVERY DAY 180 tablet 3 04/14/2023 ActiveStart: 28-31-3138jtsn 2 tablets by mouth once dailymagnesium oxide (Mag-Ox) 400 mg (241.3 mg magnesium) tablet Indications: Paroxysmal atrial tachycardia , Premature ventricular contractions Take 2 tablets (800 mg) by mouth once daily. 180 tablet 3 02/28/2023 Active End: 41-04-0616olmt 2 tablets by mouth once dailymagnesium oxide (Mag-Ox) 400 mg (241.3 mg magnesium) tablet Take 2 tablets (800 mg) by mouth once daily. 0 02/28/2023 Discontinued (Reorder)take 2 tablets by mouth once dailyMagnesium Oxide 400 MG Oral Tablet TAKE 2 TABLET Daily Quantity: 180 Refills: 3 Ordered: 7-Gys-5032ScfzcybntnBradly Tanner MD Hpksnk95 hr metoprolol succinate 50 mg extended release oral tablet (13 sources)beta-Adrenergic BlockerStart: 05-28-2024 End: 15-20-4994dtjz 1 tablet by mouth twice dailymetoprolol succinate XL (Toprol-XL) 50 mg 24 hr tablet Indications: Palpitation , Essential (primary) hypertension Take 1 tablet (50 mg) by mouth 2 times a day. 180 tablet 3 03/04/2025 03/04/2026 ActiveStart: 30-29-7530mnrh 1 tablet by mouth twice daily Metoprolol tartrate 50 mg Tab 50 mg = 1 tab(s), Oral, BID, Refills(s) 0 Start Date: 05/09/23 Status: Ordered Repeat number: 1Start: 43-21-9008oxaj 2 tablets by mouth once dailymetoprolol succinate XL (Toprol-XL) 50 mg 24 hr tablet Indications: Essential (primary) hypertension TAKE 2 TABLETS BY MOUTH EVERY DAY 180 tablet 3 04/01/2023 ActiveStart: 30-08-8267uqao 2 tablets by mouth once dailymetoprolol succinate XL (Toprol-XL) 50 mg 24 hr tablet Take 2 tablets (100 mg) by mouth once daily.0 04/10/2021 ActiveStart: 81-17-6140ikon 2 tablets by mouth once dailyMetoprolol Succinate [...] Pwdr for Recon 249 gram (4 sources)Start: 43-27-1453SujfEub 3350 Oral Pwdr for Recon 249 gram 17 gram, Oral, Every other day, # 255 gram, Refills(s) 11, [id number] 165.1, cm, 10/14/19 13:03:00 EDT, Height/Length Measured, 83.7, kg, 10/14/19 13:03:00 EDT, Weight Measured Start Date: 10/14/19 Status: Ordered Quantity: 255.0 Unit: g Repeat number: 12Start: 19-59-3946KbipDbu 3350 Oral Pwdr for Recon 249 gram 17 gram, Oral, Every other day, # 255 gram, Refills(s) 11, [id number] 165.1, cm, 10/14/19 13:03:00 EDT, Height/Length Measured, 83.7, kg, 10/14/19 13:03:00 EDT, Weight Measured Start Date: 10/14/19 Status: OrderedMulti Vitamin+ (4 sources)Start: 76-85-7315rcef 1 tablet by mouth once dailyMulti Vitamin+ 1 tab, Oral, Daily, Refill(s) 0, Prophylaxis Start Date: 06/16/18 Status: Ordered Repeat number: 1Start: 61-86-5547baao 1 tablet by mouth once dailyMulti Vitamin+ 1 tab, Oral, Daily, Refill(s) 0, Prophylaxis Start Date: 06/16/18 Status: Ordered simvastatin 20 mg oral tablet (10 sources)HMG-CoA Reductase InhibitorStart: 65-26-8397vawj 20 mg by mouth once daily at bedtimesimvastatin 20 mg, Oral, Once a day (at bedtime), Refills(s) 0, High cholesterol Start Date: 06/17/18 Status: Ordered Repeat number: 1 spironolactone 25 mg oral tablet (11 sources)Aldosterone AntagonistStart: 05-09-2023 End: 56-78-8453arsm 1 tablet by mouth once dailyspironolactone (Aldactone) 25 mg tablet Indications: Primary hypertension Take 1 tablet (25 mg) by mouth once daily. 90 tablet 3 03/04/2025 03/04/2026 ActiveStart: 85-77-5574uihe 1 tablet by mouth once dailyspironolactone (Aldactone) 25 mg tablet Indications: Primary hypertension Take 1 tablet (25 mg) by mouth once daily. 90 tablet 3 02/28/2023 Active End: 60-39-1555dtum 1 tablet by mouth once dailyspironolactone (Aldactone) 25 mg tablet Take 1 tablet (25 mg) by mouth once daily. 0 02/28/2023 Discontinued (Reorder)Vitamin D (1 source)Start: 52-85-8304Ylbmgzq D Oral, Refills(s) 0 Start Date: 10/14/19 Status: OrderedVitamin E (1 source)Start: 62-72-4270kxdujhr E 100 International_Unit, Oral, Daily, Refills(s) 0, Prophylaxis Start Date: 06/16/18 Status: Ordered Problems Active Problems Problem ClassificationProblemDateDocumented DateEpisodic/ChronicCardiac dysrhythmias (20 sources)Ventricular premature beats; Translations: [Other premature beats] Onset: 762084-69-8066VcasimaLkjtosn dysrhythmias (13 sources)Palpitations; Translations: [Palpitations]Onset: 02-09-2022 64-90-2601TbwdtokaDsmxozoa (4 sources)Bilateral jkobxdpyg65-19-9801LroaearWamfvsysh of lipid metabolism (18 sources)Hyperlipidemia; Translations: [Other and unspecified hyperlipidemia] Onset: 95-37-2782KzyddwyUgrqjosxl hypertension (16 sources)Hypertensive disorder; Translations: [Unspecified essential hypertension]Onset: 431654-04-3839AbpxtstCcqmlbqw of lower limb (11 sources)Stress fracture, left foot, subsequent encounter for fracture with nonunion; Translations: [Displaced fracture of fifth metatarsal bone, left foot, subsequent encounter for fracture with routine healing]Onset: 12-04-2021 EpisodicOsteoarthritis (5 sources)Arthritis; Translations: [Unilateral primary osteoarthritis, right knee]Onset: 462740-16-6288BfmdjjuJemnmwvajhbo (3 sources)Jmopwsmxlxib00-18-4209LyimldzGxahd aftercare (1 source)Encounter for follow-up examination after completed treatment for conditions other than malignant neoplasm; Translations: [Encounter for follow-up examination after completed treatment for conditionsother than malignant neoplasm]Onset: 37-15-0632OzkdivgqTexpq gastrointestinal disorders (4 sources)Pfnfehjejhbk37-21-2850NpizrabeSawfs nervous system disorders (1 source)Other chronic pain; Translations: [OTHER CHRONIC PAIN]Onset: 02-54-6724PudddarGmqwq non-traumatic joint disorders (4 sources)Pain in right knee; Translations: [PAIN IN RIGHT KNEE]Onset: 45-40-8957EqalopfeSvqpk nutritional; endocrine; and metabolic disorders (8 sources)Body mass index 30+ - obesity; Translations: [Body Mass Index 31.0- 31.9, adult]Onset: 671938-14-2940ZnmhypfRynsz nutritional; endocrine; and metabolic disorders (5 sources)Obesity; Translations: [Obesity, unspecified]40-05-0985IschabpVvhrs nutritional; endocrine; and metabolic disorders (2 sources)Body mass index (BMI) 32.0-32.9, adult; Translations: [Body mass index (BMI) 32.0-32.9, adult]Onset: 78-78-9056KzbkegzSoqql skin disorders (1 source)Scar conditions and fibrosis of skin; Translations: [Scar conditions and fibrosis of skin]Onset: 60-75-6861CnbixecrKduwe skin disorders (3 sources)Yjva62-90-0523MgphpyomEwjppkcxk; thrombophlebitis and thromboembolism (1 source)Phlebitis and thrombophlebitis of superficial vessels of right lower extremity; Translations: [Phlebitis and thrombophlebitis of superficial vessels of right lower extremity]Onset: 37-20-2702NoiuybssCosjczrs codes; unclassified (2 sources)Never smoked tobacco; Translations: [Other specified health status] Onset: 360954-65-4811SeaynvlxXwdxtvqo codes; unclassified (2 sources)Other specified health status; Translations: [Other specified health status]Onset: 37-54-9281CpdrzwnhBjzjgwiyrixh (4 sources)Patient encounter -20-2607Bqsomexhjnij (1 source)Other supraventricular tachycardia (HHS-HCC); Translations: [Other supraventricular tachycardia (HHS-HCC)]Onset: 07-84-9920Nsmjmxkwpbht (1 source)Other supraventricular tachycardia; Translations: [Other supraventricular tachycardia]Onset: 45-02-5705Uivutyfh veins of lower extremity (4 sources)Venous varices; Translations: [Varicose veins of bilateral lower extremities with pain]Onset: 988315-18-4372NkdvamfjZjexb infection (8 sources)Measles; Translations: [Mumps]80-18-6655Wedbiusr Past or Other Problems Problem ClassificationProblemDateDocumented DateEpisodic/ChronicOther connective tissue disease (4 sources)Pain in left foot; Translations: [PAIN IN LEFT FOOT]Onset: 01-22-2022 EpisodicOther nutritional; endocrine; and metabolic disorders (4 sources)Obese class I; Translations: [Obesity, unspecified]Onset: 01-22-2023 Resolved: 370133-69-1851ThoaehuNwyvajromnbp (2 sources)Never smoked tobacco; Translations: [Never smoker]Unclassified (3 sources)Onset: 02-28-2023 Resolved: 018179-81-4985Rrpnxjwtgtpl (1 source)Other supraventricular tachycardia (HHS-HCC); Translations: [Other supraventricular tachycardia (HHS-HCC)]Onset: 91-20-2457Edwbzrhjmsle (1 source)Other supraventricular tachycardia; Translations: [Other supraventricular tachycardia]Onset: 03-19-2024 Results Test NameValueInterpretationReference RangeFacilityUrine Cultureon 03-18-2025 Bacteria identified Cx Nom (U)No Growth 2 Days PERFORMED BY: [place] [address] PATHOLOGIST RELAY RECORD CLERK NGOZI DONALD M.D.NormalBartow Regional Medical Center Physician GroupComment on above: Performed By: #### CUU #### [facility] [address] [place], [place] [address]Alanine aminotransferase [Enzymatic activity/volume] in Serum or PlasmaOrdered By: Bradly Tanner on 07-06-8720DRH [Catalytic activity/Vol]30 U/LNormal7-52[facility] HospitalComment on above: Performed By: #### ALT, BMP, AST, LIPID #### [facility] [address] [place] [address] USAAspartate aminotransferase [Enzymatic activity/volume] in Serum or PlasmaOrdered By: Bradly Tanner on 87-56-0349GRA [Catalytic activity/Vol]28 U/BFwurry27-90MrfqgdeduGlenbeigh HospitalComment on above: Performed By: #### ALT, BMP, AST, LIPID #### [facility] [address] [place] [id number] USABasic Metabolic Panelon 23-69-1188MUN/1.73 sq M.predicted MDRD (S/P/Bld) [Vol rate/Area]mL/min/{1.73_m2}NormalThe [facility] Physician GroupComment on above:Performed By: #### ALT, BMP, AST, LIPID #### [facility] [address] [place] [address] USACalcium [Mass/volume] in Serum or PlasmaOrdered By: Bradly Tanner on 59-03-4384Yrrlsfx [Mass/Vol]9.6 mg/dLNormal8.6-10.3 [facility] HospitalComment on above:Performed By: #### ALT, BMP, AST, LIPID #### [facility] [address] [id number] USACarbon dioxide, total [Moles/volume] in Serum or Plasma Ordered By: Bradly Tanner on 35-14-0151VL6 [Moles/Vol]30.4 mmol/LNormal 21.0-31.0[facility]igh HospitalComment on above:Performed By: #### ALT, BMP, AST, LIPID #### [facility] [address] [place] [address] USAChloride [Moles/volume] in Serum or PlasmaOrdered By: Bradly Tanner on 65-52-7210Fitpkrgm [Moles/Vol]106 mmol/OXvfimi55-313 [facility] HospitalComment on above:Performed By: #### ALT, BMP, AST, LIPID #### [facility] [address] [place] [address] USACholesterol [Mass/volume] in Serum or PlasmaOrdered By: Bradly Tanner on 18-45-4470Uhszftaxowb [Mass/Vol]161 mg/xXJsltnj518-890 [facility] HospitalComment on above:Chol less than 200 mg/dl low riskChol 201-239 mg/dl borderline riskChol 240 mg/dl and greater high riskResult Comment: Chol less than 200 mg/dl low risk Chol 201-239 mg/dl borderline risk Chol 240 mg/dl and greater high riskPerformed By: #### ALT, BMP, AST, LIPID #### [facility] [address] [place] [address] USACholesterol in HDL [Mass/volume] in Serum or PlasmaOrdered By: Bradly Tanner on 74-73-6051Fnnzkpckjcf in HDL [Mass/Vol]60 mg/dLNormal 23-[facility] HospitalComment on above:HDL CHOL ATP-III CLASSIFICATION Cardiovascular RiskHDL > or equal to 60 mg/dL LOWHDL < 40 mg/dL HIGHResult Comment: HDL CHOL ATP-III CLASSIFICATION Cardiovascular Risk HDL > or equal to 60 mg/dL LOW HDL < 40 mg/dL HIGHPerformed By: #### ALT, BMP, AST, LIPID #### [facility] [address] [place] [address] USACholesterol in LDL Calc [Mass/Vol]Ordered By: Bradly Tanner on 08-58-8454Oyjzqxdbsru in LDL [Mass/Vol]78 mg/dL0-100G[facility] HospitalComment on above:LDL ATP III CLASSIFICATIONLDL less than 100 mg/dL OptimalLDL 100-129 mg/dL Near or above cklnuwlAUA204-970 mg/dL Borderline highLDL 160-189 mg/dL HighLDL greater than 189 mg/dL Very high Cholesterol in VLDL Calc [Mass/Vol]Ordered By: Bradly Tanner on 02-22-2025 Cholesterol in VLDL [Mass/Vol]23 mg/dLGlenbeigh Hospital Creatinine [Mass/volume] in Serum or PlasmaOrdered By: Bradly Tanner on 25-40-8518Sqzolyuzxr [Mass/Vol]0.75 mg/dLNormal0.60-1.20[facility] HospitalComment on above:Performed By: #### ALT, BMP, AST, LIPID #### [facility] [address] [place] [address] USAGlomerular filtration rate [Volume Rate/Area] in Serum, Plasma or Blood by CreatinineOrdered By: Bradly Tanner on 02-22-2025 Glomerular filtration rate [Volume Rate/Area] in Serum, Plasma or Blood by Creatinine> 60.0 mL/MinGlenbeigh HospitalGlucose [Mass/volume] in Serum or PlasmaOrdered By: Bradly Tanner on 41-46-5908Yzuhvjv [Mass/Vol]89 mg/lWZwwvtr77-713QfqmtimpgGlenbeigh HospitalComment on above:ADA recommended reference rangeRandom Glucose [...] Mellitus. ADA recommended reference rangePerformed By: #### ALT, BMP, AST, LIPID #### [facility] [address] [place] [address] USALipid Panelon 81-11-9249WRS Cholesterol,Qfonchzgpt02 mg/dL Normal0-100The [facility] Physician GroupComment on above:Result Comment: LDL ATP III CLASSIFICATION LDL less than 100 mg/dL Optimal LDL 100-129 mg/dL Near or above optimal LDL 130-159 mg/dL Borderline high LDL 160-189 mg/dL High LDL greater than 189 mg/dL Very highPerformed By: #### ALT, BMP, AST, LIPID #### [facility] [address] [place] [address] USATriglyceride w/Wfxmvu748 mg/dLNormal0-149The [facility] Physician GroupComment on above:Result Comment: TRIG ATP III CLASSIFICATION TRIG less than 150 mg/dL Normal TRIG 150-199 mg/dL Borderline high TRIG 200-500 mg/dL High TRIG greater than 500 mg/dL Very high Standard traceable to the Center for Disease Conrtrol and Prevention (CDC) test method.Performed By: #### ALT, BMP, AST, LIPID #### [facility] [address] [place] [address] USAVLDL VOUTHTLZKWR56 mg/dLNoSampson Regional Medical Center Physician GroupComment on above:Performed By: #### ALT, BMP, AST, LIPID #### [facility] [address] [place] [address] USANo Panel InformationOrdered By: Bradly Tanner on 05-11-1395Cecfhlqo Creatinine Clearance (ChemN/Pomerene HospitalPotassium [Moles/volume] in Serum or PlasmaOrdered By: Bradly Tanner on 84-10-7782Xdbmqlqsb [Moles/Vol]4.6 mmol/LNormal3.5-5.1FSt. Anthony's HospitalComment on above:Performed By: #### ALT, BMP, AST, LIPID #### [place] [address] USASerum or plasma anion gap determinationOrdered By: Bradly Tanner on 10-82-3245Yrihz gap [Moles/Vol]9.2 mmol/LNormal6.0-15.0[facility] HospitalComment on above:Performed By: #### ALT, BMP, AST, LIPID #### [place] [address] USASerum or plasma total cholesterol/high density lipoprotein (HDL) cholesterol mass ratOrdered By: Bradly Tanner on 02-22-2025 Cholesterol.total/Cholesterol in HDL [Mass ratio]2.7 {ratio}Normal<5.0Glenbeigh HospitalComment on above:Result Comment: PERFORMED BY: [place] [address] PATHOLOGIST RELAY RECORD CLERK NGOZI DONALD M.D.Performed By: #### ALT, BMP, AST, LIPID #### [place] [address] USASodium [Moles/volume] in Serum or PlasmaOrdered By: Bradly Tanner on 59-66-3267Vjfyfo [Moles/Vol]141 mmol/SDdpinl145-685 [facility] HospitalComment on above:Performed By: #### ALT, BMP, AST, LIPID #### [facility] [address] [id number] USATriglyceride [Mass/volume] in Serum or PlasmaOrdered By: Bradly Tanner on 54-97-0038Sldoerzlnxit [Mass/Vol]116 mg/dL0-149G[facility] HospitalComment on above:TRIG ATP III CLASSIFICATIONTRIG less than 150 mg/dL NormalTRIG 150-199 mg/dL Borderline highTRIG 200-500 mg/dL High TRIG greater than 500 mg/dL Very highStandard traceable to the Center for Disease Conrtrol and Prevention (CDC) test method.Urea nitrogen [Mass/volume] in Serum or PlasmaOrdered By: Bradly Tanner on 80-72-3876Ghcy nitrogen [Mass/Vol]17 mg/dLNormal7-25[facility] HospitalComment on above: Performed By: #### ALT, BMP, AST, LIPID #### [facility] [address] [id number] USAUrine Cultureon 93-33-5636Xyxeiwth identified Cx Nom (U) 75,000 colonies/ml mixed bacterial skin contaminants 2 Days PERFORMED BY: [place] [address] PATHOLOGIST RELAY RECORD CLERK NGOZI DONALD M.D.NormalBartow Regional Medical Center Physician GroupComment on above: Performed By: #### CUU #### [facility] [address] [place] [address] USAUrine cultureOrdered By: Zeny Stanley on 58-30-1704Wugfgtqd identified Cx Nom (U)2 DaysGlenbeigh HospitalCoding Summaryon 28-64-3314Dkzuel SummaryHTMLBase 64 YqcuoqntXTk4gNj+PGhlYWQ+RX6FWNXtL98rgFPjsZ8xV0GBGEnNZtpaEJSYMYvPFnUjupQmNY2niOQp ZXJu [file] cHN (more content not included)...NormalMagruder HospitalCoding SummaryHTMLBase 64 RcrxqztaMXu3iEc+PGhlYWQ+ON0PHXJkW53lkWGxeA7hH5YYJWwCTpkhHPTGXVpUOvMyszJnJP3ljZZc ZXJu [file] cHN (more content not included)...UK HealthcareUS Injection Spider Veinson 81-33-0310FN Injection Spider VeinsEXAMINATION: US Injection Spider Veins [...] Ananth Valentine MD 11/30/24 10:42 a Technologist: [facility] HospitalPatient Handouton 86-45-9029Qprbaib HandoutRadiology Sclerotherapy, Care After After sclerotherapy, it [...] cannot use soap and water, use hand media center director school. ? Change your bandage. ? Check the [...] safe for you. General instructions ? Take zohd-qbw-wlislwy and prescription medicines only as told by [...] provider. Document Revised: 08/15/2022 Document Reviewed: 08/15/2022 ElseQuantopian Patient Education ? 2024 [employer] mobile.[facility] Injection Spider Veinson 86-65-4783UX Injection Spider VeinsEXAMINATION: US Injection Spider Veins [...] Ananth Valentine MD 11/24/24 12:03 p Technologist: [facility] HospitalCopottstown hospital Summaryon 69-35-7304Dgznpi Summary HTMLBase 64 JlascchsXZu8eYp+PGhlYWQ+AN5DTJFdX89mfIOapB8pQ8GVDRnKDqetTRGQOZhUCyBgtsGnVN5ozQXg ZXJu [file] cHN (more content not included)...[facility] Injection Spider Veinson 36-35-7839UH Injection Spider VeinsEXAMINATION: US Injection Spider Veins [...] Ananth Valentine MD 11/11/24 11:48 a Technologist: [facility] HospitalPatient Handouton 21-56-4764Fodzmcl HandoutRadiology Sclerotherapy, Care After After sclerotherapy, it [...] cannot use soap and water, use hand media center director school. ? Change your bandage. ? Check the [...] safe for you. General instructions ? Take kole-adx-vijxqux and prescription medicines only as told by [...] provider. Document Revised: 08/15/2022 Document Reviewed: 08/15/2022 HeyBubble Patient Education ? 2023 [employer] mobile.[place] HealthcareCoding Summaryon 37-46-0913Fytgiq SummaryHTMLBase 64 IhtftbxxNVg0mBr+PGhlYWQ+GA9AKIFvH36haXHaxZ2uP1GZYUuUNtstVCGJKKaRBvOskpPtAA0jeHYe ZXJu [file] cHN (more content not included)...NormalGalion Community Hospital HospitalCoding SummaryMLBase 64 PqployjsOXo9mKw+PGhlYWQ+US3JHAJtS19juZRogX4fQ5WPDPkNPnlxSYZXNMtIMlEtusKqIV4apXNt ZXJu [file] cHN (more content not included)...[facility] HospitalCoding Summaryon 36-24-2010Igawkx SummaryHTMLBase 64 MvbqbkcdBRw0vId+PGhlYWQ+LC7IKMUsB77bjLEhiV1iS1MGWOcECftlINZFGMxGXoNtfoJzKU9oyTNn ZXJu [file] cHN (more content not included)...NormalMagruder HospitalCoding SummaryHTMLBase 64 MtbjsvctLDc4hHr+PGhlYWQ+OW0BGOSaV14rvJJfoI7fL7BOFMhBPpklSVGHCOdLKaHhhkNcAA2aiHTx ZXJu [file] cHN (more content not included)...[facility] Injection Spider Veinson 61-66-1777FV Injection Spider VeinsEXAMINATION: US Injection Spider Veins [...] Neptali Islas MD 10/27/24 11:26 a Technologist: [facility] LE Venous Duplex Righton 86-91-9823IF LE Venous Duplex RightEXAMINATION: US LE Venous [...] DT/TM: 10/19/24 12:54 Signed (Electronic Signature): Ananth Valetnine MD 10/19/24 12:56 p Technologist: [facility] HospitalPatient Handouton 67-66-9135Oouynlo HandoutRadiology Sclerotherapy, Care After After sclerotherapy, it [...] cannot use soap and water, use hand media center director school. ? Change your bandage. ? Check the [...] safe for you. General instructions ? Take wbjq-ykj-dqxjdet and prescription medicines only as told by [...] provider. Document Revised: 08/15/2022 Document Reviewed: 08/15/2022 HeyBubble Patient Education ? 2023 [employer] mobile.[place] HealthcareCoding Summaryon 72-15-2328Hojxck SummaryHTMLBase 64 IqvyrvdjYOj9iPt+PGhlYWQ+SW6JSGXwD45thMSgwE4iV3NOOAbVPbjkOWFSRLiQDwRcqnFgXF4ydVZb ZXJu [file] cHN (more content not included)...[facility] Mamm Screen w/CAD if perf and 3D Bilon 59-60-9076DM Mamm Screen w/CAD if perf and 3D [...] very important to your health. The current [employer] and National Comprehensive Cancer [...] BI-RADS Category 2-Benign finding Recommendation: Normal interval follow-upMetroHealth Cleveland Heights Medical CenterUS LE Venous Duplex Righton 89-18-9490AM LE Venous Duplex RightEXAMINATION: US LE Venous [...] Neptali Islas MD 10/07/24 12:08 p Technologist: [facility] Summaryon 45-87-6348Udvwjo Summary HTMLBase 64 FfgjwtqdKKq0qLy+PGhlYWQ+NW4XTCLhB37rzADphX2jI3RCAVdHKkpsBSUGDOjOPqUsalDgRE2tiPAr ZXJu [file] cHN (more content not included)...UK HealthcarePatient Handouton 34-55-5367Biuycwf HandoutRadiology Sclerotherapy, Care After After sclerotherapy, it [...] cannot use soap and water, use hand media center director school. ? Change your bandage. ? Check the [...] safe for you. General instructions ? Take cefb-uxa-ooxtdog and prescription medicines only as told by [...] provider. Document Revised: 08/15/2022 Document Reviewed: 08/15/2022 HeyBubble Patient Education ? 2023 HeyBubble [facility] Healthcare Office/Clinic Noteon 84-15-7504Laljjc/Clinic Note [id number]#1.00OTGTIFFUK HealthcareCoding Summaryon 75-93-2376Gzejiz SummaryHTMLBase 64 VnmxeabwVSb0xWb+PGhlYWQ+SJ6QYKXeD60fxXEepW9fE3TRQCnMMmhyOYIMGZtRJaCeruGwQM4wyQWd ZXJu [file] cHN (more content not included)...UK HealthcareConsent Forms - Physicianon 50-30-1256Hsrzfcw Forms - Physician [id number]#1.00OTGTIFFUK Healthcare Patient Handouton 32-95-6071Svjnyom HandoutCardiovascular Varicose Veins Varicose veins are veins [...] these instructions at home: Medicines ? Take zsgx-srk-ceuskti and prescription medicines only as told by [...] trouble breathing. ? Y (more content not included)...UK HealthcareUS Venous Insufficiency Bilaton 67-39-2180GQ Venous Insufficiency BilatEXAMINATION: US Venous Insufficiency Bilat [...] Ananth Valentine MD 09/21/24 8:33 am Technologist: [facility] Rita's HospitalAlanine aminotransferase [Enzymatic activity/volume] in Serum or PlasmaOrdered By: Zeny Stanley on 48-62-1921GJA [Catalytic activity/Vol]26 U/L7-52[facility] HospitalAlbumin [Mass/volume] in Serum or Plasma by Bromocresol green (BCG) dye binding metho Ordered By: Zeny Stanley on 07-56-9814Ggiqimf BCG dye [Mass/Vol]3.9 g/dL3.5-5.7 [facility] HospitalAlkaline phosphatase [Enzymatic activity/volume] in Serum or PlasmaOrdered By: Zeny Stanley on 05-23-1110SKF [Catalytic activity/Vol]55 U/L96-107RhmfiklyyGlenbeigh HospitalAspartate aminotransferase [Enzymatic activity/volume] in Serum or PlasmaOrdered By: Zeny Stanley on 32-76-7074XMQ [Catalytic activity/Vol]25 U/T16-54NhjbppagcGlenbeigh HospitalBasophils Auto (Bld) [#/Vol]Ordered By: Zeny Stanley on 77-79-1849Svxexmgpp (Bld) [#/Vol]0.0 10*3/uL0.0-0.2FSt. Anthony's HospitalBasophils/100 WBC Auto (Bld)Ordered By: Zeny Stanley on 03-10-2024 Basophils/100 WBC (Bld)0.5 %.[facility] HospitalBilirubin.total [Mass/volume] in Serum or PlasmaOrdered By: Zeny Stanley on 14-02-7214Mplkdyfqy [Mass/Vol]0.7 mg/dL0.3-1.0[facility] HospitalCalcium [Mass/volume] in Serum or PlasmaOrdered By: Zeny Stanley on 17-57-8758Odqvpjj [Mass/Vol]9.5 mg/dL8.6-10.3FSt. Anthony's HospitalCarbon dioxide, total [Moles/volume] in Serum or PlasmaOrdered By: Zeny Stanley on 59-66-9647PL0 [Moles/Vol]32.6 mmol/LHigh21.0-31.0[facility] HospitalChloride [Moles/volume] in Serum or PlasmaOrdered By: Zeny Stanley on 69-18-0292Gsqjblbb [Moles/Vol]104 mmol/M54-170JpencdytoGlenbeigh HospitalCholesterol [Mass/volume] in Serum or PlasmaOrdered By: Bradly Tanner on 03-10-2024 Cholesterol [Mass/Vol]152 mg/lM155-683VwcgkkfsoGlenbeigh HospitalComment on above:Chol less than 200 mg/dl low riskChol 201-239 mg/dl borderline riskChol 240 mg/dl and greater high riskCholesterol in LDL Calc [Mass/Vol]Ordered By: Bradly Tanner on 05-54-1208Mvslvnchbln in LDL [Mass/Vol]72 mg/dL0-100 [facility] HospitalComment on above:LDL ATP III CLASSIFICATIONLDL less than 100 mg/dL OptimalLDL 100-129 mg/dL Near or above oimaexgJHP144-641 mg/dL Borderline highLDL 160-189 mg/dL HighLDL greater than 189 mg/dL Very high Cholesterol in VLDL Calc [Mass/Vol]Ordered By: Bradly Tanner on 03-10-2024 Cholesterol in VLDL [Mass/Vol]20 mg/dLGlenbeigh Hospital Creatinine [Mass/volume] in Serum or PlasmaOrdered By: Zeny Stanley on 03-10-2024 Creatinine [Mass/Vol]0.75 mg/dL0.60-1.20[facility] Eosinophils Auto (Bld) [#/Vol]Ordered By: Zeny Stanley on 90-16-7451Vwfxfpemzbr (Bld) [#/Vol]0.2 10*3/uL0.0-0.45G[facility]igh HospitalEosinophils/100 WBC Auto (Bld)Ordered By: Zeny Stanley on 58-91-9704Hdhydaepsxa/100 WBC (Bld)3.8 %.[facility] HospitalErythrocyte distribution width Auto (RBC) [Ratio]Ordered By: Zeny Stanley on 58-22-2231Ajdxjnnipqw distribution width (RBC) [Ratio]13.4 %11.9-15.3FSt. Anthony's HospitalGlobulin Calc (S) [Mass/Vol]Ordered By: Zeny Stanley on 47-60-6482Geowuvxj (S) [Mass/Vol]2.4 g/dL [facility] HospitalGlucose [Mass/volume] in Serum or PlasmaOrdered By: Zeny Stanley on 43-95-5715Noetqiw [Mass/Vol]85 mg/qM08-080FwfiwkvyfGlenbeigh HospitalComment on above:ADA recommended reference rangeRandom Glucose Reference Range is dependent on time and content of last meal. Glucose of more than 200 mg/dL in a nonstressed, ambulatory subject supports the diagnosisof Diabetes Mellitus.Glucose mean value [Mass/volume] in Blood Estimated from glycated hemoglobinOrdered By: Zeny Stanley on 85-92-8531Adsfuvm glucose Estimated from glycated hemoglobin (Bld) [Mass/Vol]123 mg/dLGlenbeigh HospitalHematocrit Auto (Bld) [Volume fraction]Ordered By: Zeny Stanley on 65-23-1144Lwgygjqvdk (Bld) [Volume fraction]41.0 %34.0-46.4FSt. Anthony's HospitalHemoglobin A1c percentageOrdered By: Zeny Stanley on 03-10-2024 HbA1c (Bld) [Mass fraction]5.9 %High4.3-5.6FSt. Anthony's Hospital Comment on above:Increased risk for diabetes: 5.7 - 6.4diabetes: >6.4glycemic control for adults with diabetes: <7.0Hemoglobin [Mass/volume] in Blood Ordered By: Zeny Stanley on 83-06-3793Qixufvtczv (Bld) [Mass/Vol]14.0 g/dL 11.8-15.4FSt. Anthony's HospitalLeukocytes [#/volume] corrected for nucleated erythrocytes in Blood by Automated counOrdered By: Zeny Stanley on 03-96-9058WXE corrected for nucl RBC Auto (Bld) [#/Vol]4.5 10*3/uL3.8-11.6 [facility] HospitalLymphocytes Auto (Bld) [#/Vol]Ordered By: Zeny Stanley on 47-46-8711Jalcrpncljq (Bld) [#/Vol]1.4 10*3/uL1.00-4.8G[facility]igh HospitalLymphocytes/100 WBC Auto (Bld)Ordered By: Zeny Stanley on 11-87-9671Eoojtngnyhn/100 WBC (Bld)30.7 %.[facility] CenterH Auto (RBC) [Entitic mass]Ordered By: Zeny Stanley on 06-81-1482ELO (RBC) [Entitic mass]30.2 pg24.7-34.3FSt. Anthony's HospitalMCHC Auto (RBC) [Mass/Vol]Ordered By: Zeny Stanley on 21-62-4275IIJB (RBC) [Mass/Vol]34.2 g/dL 32.0-35.0[facility] HospitalMCV Auto (RBC) [Entitic vol]Ordered By: Zeny Stanley on 76-21-5871HTL (RBC) [Entitic vol]88.2 rQ55-604KvvehjibfGlenbeigh HospitalMonocytes Auto (Bld) [#/Vol]Ordered By: Zeny Stanley on 44-61-1236Awjtteoej (Bld) [#/Vol]0.4 10*3/uL0.0-0.8[facility] HospitalMonocytes/100 WBC Auto (Bld)Ordered By: Zeny Stanley on 03-10-2024 Monocytes/100 WBC (Bld)9.9 %.[facility]igh HospitalNeutrophils Auto (Bld) [#/Vol]Ordered By: Zeny Stanley on 04-27-1368Sbqxulmwhlu (Bld) [#/Vol]2.5 10*3/uL1.8-7.7FSt. Anthony's HospitalNeutrophils/100 WBC Auto (Bld) Ordered By: Zeny Stanley on 25-24-6171Bbopmjnscpb/100 WBC (Bld)55.1 %.[facility]igh HospitalNo Panel InformationOrdered By: Zeny Stanley on 03-10-2024 Estimated GFR (CKD-EPI)> 60.0 mL/MinGlenbeigh HospitalPharmacy Creatinine Clearance (ChemN/AFSt. Anthony's HospitalNucleated erythrocytes [Presence] in Blood by Automated countOrdered By: Zeny Stanley on 07-75-4899Jcnonfofz RBC Auto Ql (Bld)0.1 /100{WBC}0-0.5FSt. Anthony's HospitalPlatelet mean volume Auto (Bld) [Entitic vol]Ordered By: Zeny Stanley on 47-19-5222Xznturah mean volume (Bld) [Entitic vol]7.6 fL6.3-10.7FSt. Anthony's HospitalPlatelets Auto (Bld) [#/Vol]Ordered By: Zeny Stanley on 40-89-3497Ggdmkatpi (Bld) [#/Vol]214 10*3/iQ464-432TrzoyrmfvGlenbeigh HospitalPotassium [Moles/volume] in Serum or PlasmaOrdered By: Zeny Stanley on 56-60-3553Noxpypfmo [Moles/Vol]4.2 mmol/L3.5-5.1FSt. Anthony's HospitalProtein [Mass/volume] in Serum or PlasmaOrdered By: Zeny Stanley on 30-36-6208Xofolpm [Mass/Vol]6.3 g/dLLow6.4-8.9[facility] RBC Auto (Bld) [#/Vol]Ordered By: Zeny Stanley on 49-29-0120NPJ (Bld) [#/Vol]4.65 10*6/uL3.60-5.00[facility] Hospitalerum or plasma albumin/globulin mass ratioOrdered By: Zeny Stanley on 88-28-9546Qyvwahf/Globulin [Mass ratio]1.6 {ratio}[facility] Hospitalerum or plasma anion gap determinationOrdered By: Zeny Stanley on 77-05-0673Bhbgi gap [Moles/Vol]9.6 mmol/L6.0-15.0[facility] Hospitalerum or plasma high density lipoprotein (HDL) cholesterol measurementOrdered By: Bradly Tanner on 49-99-5773Coobsgvzmno in HDL [Mass/Vol]60 mg/rZ44-86KqzeahorqGlenbeigh HospitalComment on above:HDL CHOL ATP-III CLASSIFICATION Cardiovascular RiskHDL > or equal to 60 mg/dL LOWHDL < 40 mg/dL HIGHSerum or plasma total cholesterol/high density lipoprotein (HDL) cholesterol mass ratOrdered By: Bradly Tanner on 02-10-3233Umrxpywhheo.total/Cholesterol in HDL [Mass ratio]2.5 {ratio}<5.0[facility] Hospitalodium [Moles/volume] in Serum or PlasmaOrdered By: Zeny Stanley on 92-92-9876Ypxnhd [Moles/Vol]142 mmol/L 136-145G[facility]igh HospitalThyrotropin [Units/volume] in Serum or PlasmaOrdered By: Zeny Stanley on 16-63-8827QTK Qn1.25 m[IU]/L0.45-5.33[facility] HospitalThyroxine (T4) [Mass/volume] in Serum or PlasmaOrdered By: Zeny Stanley on 93-43-8420Y4 [Mass/Vol]10.07 ug/dL5.39-11.82G[facility] HospitalTriglyceride [Mass/volume] in Serum or PlasmaOrdered By: Bradly Tanner on 76-74-6325Ggpfuadxarcj [Mass/Vol]101 mg/dL0-149G[facility] HospitalComment on above:TRIG ATP III CLASSIFICATIONTRIG less than 150 mg/dL NormalTRIG 150-199 mg/dL Borderline highTRIG 200-500 mg/dL High TRIG greater than 500 mg/dL Very highStandard traceable to the Center for Disease Conrtrol and Prevention (CDC) test method.Triiodothyronine (T3) [Mass/volume] in Serum or PlasmaOrdered By: Zeny Stanley on 33-55-7410O9 [Mass/Vol]1.28 ng/mL0.87-1.78[facility] HospitalUrea nitrogen [Mass/volume] in Serum or PlasmaOrdered By: Zeny Stanley on 02-18-8805Nfnl nitrogen [Mass/Vol]16 mg/dL7-25Glen[facility]igh HospitalWBC Auto (Bld) [#/Vol]Ordered By: Zeny Stanley on 32-73-5567FFM (Bld) [#/Vol]4.5 10*3/uL3.8-11.6 [facility] HospitalCHEMISTRYOrdered By: SYSTEM SYSTEM on 933282-pawovghmrksjcy D3 [Mass/Vol]44.0 ng/mPMtqrnw44.0 - 100.0 ng/mL Remisol ChemCalcium [Mass/Vol]9.0 mg/dLNormal8.9 - 11.1 mg/dLRemisol Chem Creatinine [Mass/Vol]0.8 mg/dLNormal0.5 - 1.3 mg/dLRemisol GomfmVIU12 mL/min/1.73 z8Spxggu>=59mL/min/1.73 f2Uzpwfit ChemCalciumon 46-55-7429Eamibcr [Mass/Vol]9.0 mg/dLNormal8.9-11.1Fisher Grace Medical CenterComment on above: Performed By: #### [id number] #### [facility] [address] [place] [address]Wfwwptw for Treatmenton 97-40-9415Igovhmm for Treatment [id number]#1.00TIFFNormalFishMedStar Union Memorial HospitalCreatinineon 48-46-9623Ypswiunket [Mass/Vol]0.8 mg/dLNormal0.5-1.3[facility] Grace Medical CenterComment on above:Performed By: #### [id number] #### [facility] [address] [place], [place] [address]Gbyjylnga Orderon 01-44-3967Bcmuezced Order [id number]#1.00TIFCincinnati Children's Hospital Medical CentereGFRon 48-25-0177nFOJ97 mL/min/1.73 e0Hbkpvq>=59Wvumedicine Barnesville HospitalComment on above:Order Comment: Order added by Discern Expert.Performed By: #### [id number] #### [facility] [address], [place] [address]Pvwcgjtgx Orderon 51-08-4048Mvjyvbryu Order [id number]#1.00TIFCincinnati Children's Hospital Medical CenterFacesheeton 80-01-6781Ocjtyfevj [id number]#1.00[facility] HospitalAmbulatory Visit Summaryon 16-47-2600Pefjrwhwfs Visit Summary KAY CHAVEZ :1950 Visit Date:05/20/2023 Ambulatory Visit Instructions Your Care Team Attending Physician - TITO AUGUSTINE, Federico Eason Primary Care Physician - Bethany AUGUSTINE, Zeny Referring Physician - Zeny Stanley [...] you for choosing us for your care. [facility] CenterPhysician Referralon 05-05-2023 Physician [id number]#1.00TIFFNormClermont County HospitalOffice Visit (Cardiology)on 62-39-3689Akfvku-up visit Diagnoses/Problems Assessed Palpitation (785.1) (R00.2) Premature [...] (more content not included)... NormalUH TouchworksTobacco Screening.on 85-48-8146Fqhdw depression screening assessmentMemorial Hospital of Rhode Island AOTMP DO Work Phone: Fall risk assessmenta) No falls within the last year [facility] AOTMP DO Work Phone: Tobacco use status CPHSb) NoMPeacehealth MediGain 250 DO Work Phone: PROF CHEM 8 (BAS METB)on 30-09-5053Zdbdf gap [Moles/Vol]11.4 mmol/LNormalTrinity Health System East CampusComment on above:Performed By: #### BMP #### [facility] [address] [address] [address] Octavio PriceCalcium [Mass/Vol]9.1 mg/dLNormal8.5-10.1[facility] Comment on above:Performed By: #### BMP #### [facility] [address] [address] [address] Octavio PriceChloride [Moles/Vol]105 mmol/WYpwcnr74-652Rbh [facility] Comment on above:Performed By: #### BMP #### [facility] [address] [address] [address] Octavio PriceCO2 [Moles/Vol]30.6 mmol/JOhzjef53.0-32.0[facility] Comment on above:Performed By: #### BMP #### [facility] [address] [address] [address] Octavio PriceCreatinine [Mass/Vol]0.75 mg/dLNormal0.55-1.02The [facility] System East CampusComment on above:Performed By: #### BMP #### [facility] [address] [address] [address] Octavio PuentesGFR-AF MOROCCAN>60Normal>=60The [facility] System East CampusComment on above:Performed By: #### BMP #### [facility] [address] [address] [address] Octavio PuentesGFR-NON AF MOROCCAN>60Normal>=60The [facility] CampusComment on above:Performed By: #### BMP #### [facility] [address] [address] [address] Octavio PriceGlucose [Mass/Vol]84 mg/jZEupxnv33-838Ltg [facility] Comment on above:Performed By: #### BMP #### [facility] [address] [address] [address] Octavio PricePotassium [Moles/Vol]4.0 mmol/LNormal3.5-5.1The [facility] Comment on above:Performed By: #### BMP #### [facility] [address] [place] [address] Dr. Octavio PriceSodium [Moles/Vol]143 mmol/FRpvvkr778-879Nza [facility] Comment on above:Performed By: #### BMP #### [facility] [address] [address] [address] Octavio PriceUrea nitrogen [Mass/Vol]13.0 mg/dLNormal7.0-18.0The [facility] CampusComment on above:Performed By: #### BMP #### [facility] [address] [place] [address] Dr. Octavio PriceUrea nitrogen/Creatinine [Mass ratio]17.3 mg/mgNormalThe [facility] System East CampusComment on above:Performed By: #### BMP #### [facility] [address] [address] [address] Octavio Lincoln Screening.on 48-55-7521Kgfy risk assessmenta) No falls within the last yearO[facility] 250 DO Work Phone: Heart RateNormalMPUniversity Of Washington Medical Center [facility]-[place] 250 DO Work Phone: Tobacco use status CPHSb) NoMPUniversity Of Washington Medical Center [facility]- [place] 250 DO Work Phone: CREATININEon 24-42-1048Emfqgcrusz [Mass/Vol]0.75 mg/dL Normal0.50 - 1.05UH Uf Health NorthComment on above:Performed By: #### CREAT #### [address] [address]Twnojujeeo [Mass/Vol]mg/dLNormal>60[facility] Comment on above:Performed By: #### CREAT #### [address] [address]Wpdpen Comment: CALCULATIONS OF ESTIMATED GFR ARE PERFORMED USING THE MDRD STUDY EQUATION FOR THE IDMS-TRACEABLE CREATININE METHODS. CLIN CHEM 2007;53:766-72ELECTROLYTE PANELon 08-34-2350Yipgg gap [Moles/Vol]13 mmol/LCwziiz81 - 20[facility]itan Medical CenterComment on above:Performed By: #### ELECT #### [address] [address]Snfvftzs [Moles/Vol]103 mmol/XZojbcx96 - 107[facility]itan Medical CenterComment on above:Performed By: #### ELECT #### [address] [address]HBP8 (Bld) [Moles/Vol]29 mmol/AXpxpee22 - 32UH Uf Health NorthComment on above:Performed By: #### ELECT #### [address] [address]Lbbzfjggz [Moles/Vol]4.0 mmol/LNormal3.5 - 5.3UH Uf Health NorthComment on above:Performed By: #### ELECT #### [facility] [address] [place], [place] [address]Acmvwc [Moles/Vol]141 mmol/RJkmivs735 - 145UH Uf Health NorthComment on above:Performed By: #### ELECT #### [facility] [address], [place] [address]QJKZ NITROGENon 92-70-7178Vxut nitrogen [Mass/Vol]19 mg/dLNormal 6 - 23Good [facility]aritan Medical CenterComment on above:Performed By: #### UREA #### [address] [address]ZXVBxr 13-85-0121GBWCAobfdl Visit (KLAUDIA) --------LOVELYALFONSOHCEPE BECKMANKAY A ([id number]) 1950 FDate Time Provider Tltvbxvmom14/5/18 10:30 AM CAMILO LANTIGUA During your visit today, we recorded the following information about you: Pulse Respiration Blood pressure Weight 64/minute 18/minute 150/81 80.7 kg Height 1.651 Liz regalado MD 02/27/2018 10:54 AM [facility] InstituteRobrehabilitation hospital [facility] [place] and [facility] Department ofCardiovascular MedicineOUTPATIENT VISIT DATE 02/27/18OUTPATIENT VISIT TYPEESTABLISHEDPRIMARY CARE PHYSICIAN:Zeny Stanley MD[address] [facility] [address]Bykgc: [phone]: [phone] 566CHIEF COMPLAINT:Patient presents with:Established PatientHISTORY OF [...] provided to the requesting provider by way ofshared medical record or via U.S. Mail.This document was generated utilizing TURN8on dictation. I have reviewed andverified that the contents of the document are accurate with the exception ofminor grammatical, spelling and punctuation errors.CONTACT INFORMATION:Thank you for allowing us to participate in the care of this very pleasantpatient. Please free to contact us if we can be of any further assistance.Camilo Lantigua MD, [facility] and [place]iana Beauchamppartment of Cardiovascular MedicineOhiohealth Riverside Methodist Hospitalrt and Vascular Institute[address] [address]Juamgt: [phone] Referring Provider: ZENY STANLEY [[id number]]Allergies As of Date: 02/27/2018(No Known Allergies)Date Reviewed: [...] FOR* Status:Closed by DYANA LANTIGUA MD on 02/27/18[facility] 02-27-2018 Protein mass concHNO ID: [id number]: Camilo StewartyService: (none)Author Type: PhysicianType: Progress NotesFiled: 02/27/2018 10:54 AMNote Text:Heart and Vascular InstituteRobrehabilitation hospital of [facility] [place] and [place] Guido Department of Cardiovascular MedicineOUTPATIENT VISIT DATE 02/27/18OUTPATIENT VISIT TYPEESTABLISHEDPRIMARY CARE PHYSICIAN:Zeny Stanley MD[address] [facility] [address]Smkrn: [phone]: [phone] COMPLAINT:Patient presents with:Established PatientHISTORY OF PRESENT ILLNESS:Kay [...] provided to the requesting provider by way ofshhca houston healthcare northwest medical record or via U.S. Mail.This document was generated utilizing Refinder by Gnowsisation. I have reviewedand verified that the contents of the document are accurate with theexception of minor grammatical, spelling and punctuation errors.CONTACT INFORMATION:Thank you for allowing us to participate in the care of this very pleasantpatient. Please free to contact us if we can be of any furtherassistance.Camilo Lantigua MD, FACCRoberKrupa Beauchamppartment of Cardiovascular MedicineOhiohealth Riverside Methodist Hospitalrt and Vascular Institut [facility]272 [address]ledge AveOverton, [place] [address]Lwqltj: [phone] NormalClevelTransylvania Regional Hospital Vital Signs Date TimeVital SignValuePerforming GsncrpzrdOmmptgqq69-25-5934 10:32-0400Body .6 cmBradly Tanner MD Work Phone: [phone]10-10-2025 10:32-0400 Body mass index (BMI) [Ratio]32.89 kg/q5CvvyshtBradly Tanner MD Work Phone: [phone]10-10-2025 10:32-0400 Body dxbnca20.91 kgBradly Tanner MD Work Phone: [phone]10-10-2025 10:32-0400 Diastolic blood eibmukdc60 mm[Hg]Bradly Tanner MD Work Phone: [phone]10-10-2025 10:32-0400 Heart rate78 /minBradly Tanner MD Work Phone: [phone]10-10-2025 10:32-0400 Systolic blood qteimini798 mm[Hg]Bradly Tanner MD Work Phone: [phone]10-25-2024 11:02-0400 Diastolic blood dfojtljv70 mm[Hg]Bradly Tanner MD Work Phone: [phone]10-25-2024 11:02-0400 Systolic blood nzxnholf920 mm[Hg]Bradly Tanner MD Work Phone: [phone] [place], [place] [address]10-25-2024 10:26-0400 Body .1 cmBradly Tanner MD Work Phone: [phone] [place], [place] [address]10-25-2024 10:26-0400 Body mass index (BMI) [Ratio]32.28 kg/y1NvzelmeBradly Tanner MD Work Phone: [facility]10-25-2024 10:26-0400 Body kgBradly Tanner MD Work Phone: [facility]10-25-2024 10:26-0400 Heart rate60 /minBradly Tanner MD Work Phone: [phone] [place], [place] [address]12-26-2023 15:09-0500 Blood Pressure LocationMichael NILL [facility]12-26-2023 15:09-0500Diastolic blood mm[Hg]Federico NILL [facility]12-26-2023 15:09-0500Heart rate 72 /minMichael NILL [facility]26[facility]23 15:09-0500 Respiratory rate16 /minMichael NILL [facility]12-26-2023 15:09-0500Systolic blood ydpiqeqa396 mm[Hg]Federico NILL [facility]10-06-2023 09:40-0400Body focrjs599.1 cmBradly Tanner MD Work Phone: [facility]10-06-2023 09:40-0400 Body mass index (BMI) [Ratio]31.85 kg/q7DsnqpryBradly Tanner MD Work Phone: [address] [place], [place] [address]10-06-2023 09:40-0400 Body .82 kgBradly Tanner MD Work Phone: [facility]10-06-2023 09:40-0400 Diastolic blood qbbctied24 mm[Hg]Bradly Tanner MD Work Phone: [facility]10-06-2023 09:40-0400 Heart rate72 /Alejandro Tanner MD Work Phone: [facility]10-06-2023 09:40-0400 Systolic blood rszdpkov296 mm[Hg]Bradly Tanner MD Work Phone: [facility]10-07-2022 09:41-0400 Body dqfeqc086.1 cmDouglas Lakhwinder Hoy Work Phone: [phone]-Ntjok [facility] DO Work Phone: [phone] 09:41-0400Body mass index (BMI) [Ratio] 31.78 kg/m6Firytzb M Hoy Work Phone: [phone]-Yhaet [facility] DO Work Phone: [phone] 09:41-0400Body surface area Derived from formula1.94 c8Uetemzf M Hoy Work Phone: [phone]-Anuoe [facility] DO Work Phone: [phone] 09:41-0400Body uegmtw12.64 kgDouglas M Hoy Work Phone: [phone]-Xwrjj [facility] DO Work Phone: [phone] 09:41-0400Diastolic blood zggigstw70 mm[Hg] Zeny M Hoy Work Phone: [phone]-Xltwq [facility] DO Work Phone: [phone] 09:41-0400Heart rate69 /minDouglas M Hoy Work Phone: [phone]-Yocdh [facility] DO Work Phone: [phone] 09:41-0400Systolic blood vhhsazmv793 mm[Hg] Zeny M Hoy Work Phone: [phone]-Gltsw [facility] DO Work Phone: 1(993) 121-696910-01-2021 09:42-0400Body qajmen029.1 cmDocharo Keane Hoy Work Phone: [phone]-Uddhc [facility] DO Work Phone: 1(840) 735-862410-01-2021 09:42-0400Body mass index (BMI) [Ratio] 31.62 kg/m6Ucnofgk M Hoy Work Phone: [phone]-Irpep [facility] DO Work Phone: 1([phone] 143-855810-01-2021 09:42-0400Body surface area Derived from formula1.94 z2Vezkcuu M Hoy Work Phone: [phone]-Fbxqc [facility] DO Work Phone: 1(711) 777-664110-01-2021 09:42-0400Body wsbujc45.18 kgDocharo Keane Hoy Work Phone: [phone]-Asccn [facility] DO Work Phone: 1([phone]) 631-152110-01-2021 09:42-0400Diastolic blood eemknfhp65 mm[Hg] Zeny M Hoy Work Phone: [phone]-Xncwz [facility] DO Work Phone: 1([phone] 09:42-0400Heart rate62 /minDouglas M Hoy Work Phone: [phone]-Zuxjf [facility] DO Work Phone: 1([phone]) 553-757510-01-2021 09:42-0400Systolic blood kqysdqtz480 mm[Hg] Zeny M Hoy Work Phone: [phone]-Mbqgo [facility] DO Work Phone: Encounters Encounter DateEncounter [facility] ProviderFacilityStart: 03-18-2025 End: 96-13-2273vxatofcprjFzrxnwv M HofabricioFacility:[facility] Start: 03-04-2025 End: 03-87-5048Lajvet outpatient visit 25 minutesMorosa isela Tanner MD Work Phone: [facility]Comment on above:Premature ventricular contractions (Primary Dx); Palpitation; Paroxysmal atrial tachycardia; Primary hypertension; Hyperlipidemia, unspecified hyperlipidemia type; BMI 32.0-32.9,adult; Never smoked tobacco; Essential (primary) hypertensionStart: 03-04-2025 End: 55-86-6386hhvkwdmcsoTFJHYTJ TRABOULSt. [facility] AmbulatoryStart: 02-22-2025 End: 73-84-0105Ylknqha encounter procedureBradly Tanner MD-Lab [facility] Work Phone: Start: 02-22-2025 End: 96-41-6997tadkaqjionVhygrem M Hoy MD Work Phone: [facility] Work Phone: Start: 02-01-2025 End: 77-52-0011evasxbfbnvYvlquez M Hoy MD Work Phone: [facility] Work Phone: Start: 02-01-2025 End: 17-18-6929Ggojkdag ReferredZeny Keane MD-LAB [facility] Start: 12-27-2024 End: 48-46-6631edhckcnkrjUxzenvd Ni Castrejon MDFacility:[facility] Start: 11-30-2024 End: 58-93-1542zbeqhaibklVppyk Romulo ValentineFacility:[facility] HospitalStart: 11-24-2024 End: 23-20-9970tfzfmujgtwCpwgx Romulo ValentineFacility:[facility] HospitalStart: 11-11-2024 End: 28-94-3533gncizotxqdBijnkx R. ZieberFacility:[facility] HospitalStart: 10-27-2024 End: 24-18-1772qsavozwgamBnvqdh R. ZieberFacility:[facility] HospitalStart: 10-19-2024 End: 83-45-9248vassycvhzdZnmzv Romulo ValentineFacility:[facility] Hospitaltart: 10-14-2024 End: 80-80-1983itqaiwyredJnrdlq R. ZieberFacility:[facility] Hospitaltart: 10-12-2024 End: 11-74-9420tuefmqujzxNtzsfo J LampeFacility:[facility]tart: 10-12-2024 End: 01-29-0399Pvyabyx encounter procedureTerernie Shannon [facility] Start: 10-07-2024 End: 47-58-5653atgmspkpveTuvekz R. ZieberFacility:[facility] Hospitaltart: 09-29-2024 End: 16-21-2421uuqwdyzcjgZzdyri R. ZieberFacility:[facility] Hospitaltart: 09-23-2024 End: 14-34-4435pnsfiwhohfPhyna V. WestFacility:[facility] Hospitaltart: 09-15-2024 End: 11-75-8499chmcoffywbPlelg V. WestFacility:[facility] Hospitaltart: 03-19-2024 End: 01-76-5083Xmmqcy outpatient visit 15 minutesBradly Tanner MD Work Phone: [facility]Comcore[facility] on above:Palpitation (Primary Dx); Paroxysmal atrial tachycardia (CMS-HCC); Premature ventricular contractions; Primary hypertension; Hyperlipidemia, unspecified hyperlipidemia type; BMI 32.0-32.9,adultStart: 03-19-2024 End: 35-38-1228byaiyacubqZCUNNCR [facility] AmbulatoryStart: 03-10-2024 End: 01-33-7917lzipsfxfpjYW Zeny Stanley Work Phone: [facility] Work Phone: Start: 03-10-2024 End: 99-92-9729Vpnoket encounter procedure Zeny Bethany Work Phone: [facility]-Lab [facility] [place] Work Phone: Start: 69-50-1550xeibkdezhaEhmelf J LampeFacility:[facility] Start: 10-10-2023 End: 48-77-3833Sfyfltl encounter procedureTertipcristina Chito Laytone [facility] Start: 05-20-2023 End: 99-75-8165okackuttndSllvpfg R NILLFacility: BellevueStart: 05-20-2023 End: 10-49-6411Jfbbkto encounter procedureMichael R NILL General Surgery Nill/Said Bang Start: 73-55-7290oojctgdpzjGpkzqv LampeFacility: BellevueStart: 02-28-2023 End: 74-02-6607Xcmrks outpatient visit 15 minutesBradly Tanner MD Work Phone: FirelandsComment on above:Palpitation (Primary Dx); Paroxysmal atrial tachycardia; Premature ventricular contractions; Class 1 obesity; Primary hypertension; Hyperlipidemia, unspecified hyperlipidemia typeStart: 91-79-0747dixpwnjttf SHANE FINNEY .Facility:P1Fjxho: 53-84-5311sphqynqllkCE ZENY STANLEY . Facility:J6Wcejs: 10-01-2022 End: 58-45-6989sbgrtnaiizLDTNJBTJZFKM LUZSHMIPATHFabricio .Facility:V5Bboit: 07-31-2022 End: 01-53-3756bnxbglluqfMJKQP D HIGHLANDERFacility:B6Rxumr: 03-20-2022 End: 89-99-4530lfdgwjfkdjUJMDK D HIGHLANDERFacility:H3Afecm: 27-75-6151Yo RenewalDouglas M Hoy Work Phone: [phone]-Pqdxc [facility] DO Work Phone: Start: 57-87-3959xihntmeeajMpmbulatoryDr. Bradly Tanner Facility:[address]Fwnhq: 04-15-0613Mxxryr outpatient visit 15 minutesDouglas M Hoy Work Phone: [phone]-Skfrs [facility] DO Work Phone: Start: 02-19-2022 End: 73-26-5851urshkjpazmMH ANANTH Danielson WESTFacility:I7Pkvga: 02-04-2022 End: 69-78-6398ofkogjkkgsPA MOROSA ISELA TRABOULSSIFacility:P5Nfykd: 01-22-2022 End: 02-60-8690nglyszwetdJNGHMZZE CULLENFacility:K2Xxphr: 01-02-2022 End: 79-40-1506nxnbrwinkhVL ANANTH Danielson WESTFacility:C9Gpklv: 12-27-2021 End: 33-90-4080bgcdtbekyhDMTZMDCX CULLENFacility:T2Jyfap: 11-29-2021 End: 61-14-6859xylluiuftqQAOUWWKP CULLENFacility:W9Qytbo: 10-04-2021 End: 96-63-2477Evzoybc encounter procedureTerernie Shannon [facility] Start: 27-81-1985Klpranb encounter procedureZeny Stanley Work Phone: [phone]-Igsyo [facility] DO Work Phone: Start: 02-27-2018 End: 59-75-0978Wtxmkon encounterYANDELCARMEN BOND [facility] Procedures DateProcedureProcedure DetailPerforming ClinicianStart: 75-19-4785Sdlar culture Zeny Stanley MD Work Phone: Start: 17-97-5168Pjrxqohk of lesion of skinMichael NILL Comment on above:left earAppendectomyZeny Stanley Work Phone: Cataract surgeryDougangelo Stanley Work Phone: Dilation and curettageTeresa Shiva Extraction of cataractMichael NILL HysterectomyZeny Stanley Work Phone: HysterectomyTeresa Shiva Ligation of varicose veinDouglas Lakhwinder Stanley Work Phone: Stripping of veinTeresa Shiva TonsillectomyDouglas Lakhwinder Stanley Work Phone: TonsillectomyTeresa Shiva Total abdominal hysterectomy with bilateral salpingo-oophorectomyMichael NILL Plan of Treatment DateCare ActivityDetailAuthorStart: 33-75-3775Rfeggejkk for malignant neoplasm of colonTriHealthStart: 03-04-2026 End: 10-97-5917Neriuhi aminotransferase [Enzymatic activity/volume] in Serum or Plasma by With P-5'-PAlanine Aminotransferase Lab Routine Hyperlipidemia, unspecified hyperlipidemia type Expected: 03/04/2026, Expires: 06/02/2026[facility] Service Area Work Phone: Comment on above:Expected: 03/04/2026, Expires: 06/02/2026Start: 03-04-2026 End: 22-37-7155Hwzdzedht aminotransferase [Enzymatic activity/volume] in Serum or Plasma by With P-5'-PAspartate Aminotransferase Lab Routine Hyperlipidemia, unspecified hyperlipidemia type Expected: 03/04/2026, Expires: 06/02/2026 [facility] Work Phone: Comment on above:Expected: 03/04/2026, Expires: 06/02/2026Start: 03-04-2026 End: 94-53-4592Mtbdt metabolic 2000 panel - Serum or PlasmaBasic Metabolic Panel Lab Routine Premature ventricular contractions Primary hypertension Expected: 03/04/2026, Expires: 06/02/2026[facility] Work Phone: Comment on above:Expected: 03/04/2026, Expires: 06/02/2026Start: 03-04-2026 End: 07-56-2606Orsic 1996 panel - Serum or PlasmaLipid Panel Lab Routine Hyperlipidemia, unspecified hyperlipidemia type Expected: 03/04/2026, Expires: 06/02/2026[facility] Work Phone: Comment on above:Expected: 03/04/2026, Expires: 06/02/2026Start: 03-03-2026 End: 42-81-4591Errnhkr encounter cpvkukosk10/09/2026 10:30 AM EDT Office Visit [address] [place] [address] Bradly Tanner MD [address] [facility] [address] [place] [address] [facility]: 47-79-5922Cokewkuly for osteoporosisBone Density [facility]: 07-30-2025 Medicare Annual Wellness VisitMedicare Annual Wellness Visit (AWV)[facility]: 03-04-2025 End: 75-16-3762Ynlypiy encounter hljypketk33/10/2025 10:30 AM EDT Office Visit [address] [place] [address] Bradly Tanner MD [address] [place] [address] [address] [place] [address] [facility]: 48-12-1014XYQ High Risk: (Elderly (60+) or Population) (1 - 1-dose 75+ series)RSV High Risk: (Elderly (60+) or Population) (1 - 1-dose 75+ series)[facility]: 02-17-2025 End: 09-95-0785Hpmowgn aminotransferase [Enzymatic activity/volume] in Serum or Plasma by With P-5'-PAlanine Aminotransferase Lab Routine Hyperlipidemia, unspecified hyperlipidemia type Expected: 02/17/2025, Expires: 03/19/2025 [facility] Work Phone: Comment on above:Expected: 02/17/2025, Expires: 03/19/2025Start: 02-17-2025 End: 11-65-3044Rcztqcjrz aminotransferase [Enzymatic activity/volume] in Serum or Plasma by With P-5'-PAspartate Aminotransferase Lab Routine Hyperlipidemia, unspecified hyperlipidemia type Expected: 02/17/2025, Expires: 03/19/2025 [facility] Work Phone: Comment on above:Expected: 02/17/2025, Expires: 03/19/2025Start: 02-17-2025 End: 36-17-6932Yidbb metabolic 2000 panel - Serum or PlasmaBasic Metabolic Panel Lab Routine Primary hypertension Expected: 02/17/2025, Expires: 03/19/2025[facility] Service Area Work Phone: Comment on above:Expected: 02/17/2025, Expires: 03/19/2025Start: 02-17-2025 End: 28-50-9013Pxsre 1996 panel - Serum or PlasmaLipid Panel Lab Routine Hyperlipidemia, unspecified hyperlipidemia type Expected: 02/17/2025, Expires: 03/19/2025[facility] Work Phone: Comment on above:Expected: 02/17/2025, Expires: 03/19/2025Start: 19-98-6542Bpesorgd identified in Urine by CultureUrine Culture [facility]: 45-32-2005Uomqs cultureKettering Memorial Hospitaltart: 71-73-0932ZCGWQ-19 Vaccine ( season) COVID-19 Vaccine ( season)[facility]: 36-08-3327Aeudurqlc vaccinationInfluenza Vaccine (#1)[facility]: 40-71-9728Usutsdpew for malignant neoplasm of colonFort [facility]: 03-19-2024 End: 83-04-1517Ljwfyit encounter avuhpkcxf90/25/2024 10:20 AM EDT Office Visit [address] [address] Bradly Tanner MD [address] [facility] [address] [place] [address] [facility]: 96-21-9735PQJLQ-19 Vaccine ( season)COVID-19 Vaccine ( season)[facility]: 84-28-8841Rutzutrlw vaccinationInfluenza Vaccine (#1)[facility]: 15-78-5897TDG, Provider: Bradly Tanner, Status: Pen, Time: 9:20 AMFUV, Provider: Bradly Tanner, Status: Pen, [facility]: [facility]:20 [facility] Work Phone: Start: 76-31-1779Nohrvfxij vaccinationInfluenza Vaccine (#1)[facility]: 41-78-2646Dhfhnxgmm for osteoporosisBone Density ScanFort [facility] Hospital: 04-22-2022 COVID-19 Vaccine (4 - Pfizer series)COVID-19 Vaccine (4 - Pfizer series) [facility]: 39-62-4838PNJ, Provider: Bradly Tanner, Status: Pen, Time: 9:30 AMFUV, Provider: Bradly Tanner, Status: Pen, Time: 9:30 AM[facility] 250 DO Work Phone: Start: 62-30-1807DHO High Risk: (Elderly (60+) or Population) (1 - Risk 60-74 years 1-dose series)RSV High Risk: (Elderly (60+) or Population) (1 - Risk 60-74 years 1-dose series)[facility]: 91-69-3434Qxqcyttiq for malignant neoplasm of breastMammogramFort Hamilton Hospital: 69-18-3052MGvT/Tdap/Td Vaccines (1 - Tdap)DTaP/Tdap/Td Vaccines (1 - Tdap)[facility]: 22-38-4688Xwchuypn mellitus screeningDiabetes Screening [facility]: 96-36-7794Bvfwanuoc C screeningHepatitis C ScreeningUnMercy Health [facility]: 39-61-7925YWY Vaccines (1 of 1 - Standard series)MMR Vaccines (1 of 1 - Standard series)[facility]: 68-96-5018Ukkpd panelLipid PanelUnMercy Health Clermont Hospital: 1950Medicare Annual Wellness VisitMedicare Annual Wellness Visit (AWV)[facility]: 97-27-7506Mrjidnlqd for malignant neoplasm of colonUnMercy Health Clermont Hospital: 1950 Yearly Adult PhysicalYearly Adult PhysicalUnAccess [facility] Immunizations Immunization DateImmunizationNotesCare NdbdsmuuBeqpekhy44-98-6606ylyfunasq virus vaccine, unspecified formulationBradly Tanner MD Work Phone: [facility] Work Phone: [phone] virus vaccine, unspecified formulationMichael NILL General Surgery Obtgsfit43-49-3325Sbo vaccine, quadrivalent, high-dose, preservative free, age 65y+ (FLUZONE)Bradly Tanner MD Work Phone: [facility] Work Phone: [phone]) 396-914111168519-29-0026psokldkqm virus vaccine, unspecified formulationBradly Tanner MD Work Phone: [facility] Work Phone: [phone] COVID-19 Vac Bivalent 30 MCG/0.3ML Intramuscular SuspensionZeny Stanley Work Phone: [facility] 250 DO Work Phone: Comment on above:Series:55-62-6932KORN-CoV-2 (COVID- 19) mRNA BNT-162b2 vaxMichael NILL [facility] CenterTarjivvw57-51-9474Fkyrcyotw, Seasonal, Quadrivalent, AdjuvantedBradly Tanner MD Work Phone: [facility] Work Phone: [phone]ddx vaccine recombinantBradly Tanner MD Work Phone: [facility] Work Phone: [phone]-DdI-0 (COVID-19) mRNA BNT-162b2 vax Federico FRANCIS [facility] CenterueComment on above:Result Comment: 2023-05-09: GFC0419-55-9062IEQW-XgH-9 (COVID-19) mRNA BNT-162b2 vax Federico FRANCIS [facility] CenterueComment on above:Result Comment: 2023-05-09: PGO3911-09-1595ikxcql vaccine recombinantBradly Tanner MD Work Phone: [facility] Work Phone: 1(638) [phone]bpufwrbs polysaccharide vaccine, 23 valentBradly Tanner MD Work Phone: [facility] Work Phone: 1([phone]zdbhs virus vaccine, unspecified formulationZeny Stanley Work Phone: [phone]-Ohdst [facility] [address] DO Work Phone: 1(108) [phone]fkabn, high dose seasonal, preservative-freeBradly Tanner MD Work Phone: [facility] Work Phone: 1(342) [phone]nkidstu polysaccharide vaccine, 23 valentBradly Tanner MD Work Phone: [facility] Work Phone: 1(793) [phone]qbwoth conjugate vaccine, 13 valbobby Stanley Work Phone: [phone]) [phone]-[place]yl[place] [address] [place] Work Phone: [phone]o, injectable, quadrivalent, preservative freeBradly Tanner MD Work Phone: [facility] Work Phone: 1([phone]injzehw polysaccharide vaccine, 23 valentZeny Stanley Work Phone: [phone]-FgvgyNew [facility] 806 DO Work Phone: 1(495) [phone]ebpxsh, seasonal, injectable, preservative freeBradly Tanner MD Work Phone: [facility] Work Phone: [phone]sksr, injectable, quadrivalent, contains preservativeBradly Tanner MD Work Phone: [facility] Work Phone: [phone]k, seasonal, injectableBradly Tanner MD Work Phone: [facility] Work Phone: Payers DatePayer CategoryPayerPolicy [id number]-wkb [id number] [id number] 2025 Medicare supplemental policy (as second payer)[employer] [id number]l Health [id number] Health Insurance [id number] Dimas Community Hospital [id number].9.645362.642140.22363-29-3112Oqrfyqs84-32-4106 Medicare1.2.840.426479.1.13.647.2.7.3.685538.315 [id number] [id number]-6493Prxbqhl843524626 2..1.719733.3.579.2.86636-90-1736Ndgwffk5919858 2..1.493740.3.579.2.58876-13-3712Elopshb6544424 2..1.065018.3.579.2.37582-67-1636Veklgrp6445179 2..1.532752.3.579.2.87054-28-2877Cgamwqv8100187 2.16.840.1.694261.3.579.2.17030-37-7465Vpdbnhu5897768 2.16.840.1.544656.3.579.2.52430-01-6739Lkoseix4968639 2.16.840.1.104882.3.579.2.18014-72-2095Zsbeqtv0309902 2.16.840.1.696882.3.579.2.22307-42-2309Sfepocc8983367 2.16.840.1.653880.3.579.2.65115-69-0970Nrpqxaq1480151 2.840.1.960893.3.579.2.48528-71-3258Qfropdt3550204 2.840.1.817530.3.579.2.69117-44-3861Unemfpp8123552 2.840.1.274108.3.579.2.21648-55-2867Zfbxwcn58987596 2.840.1.485543.3.579.2.21515-76-6441Zhgbdta35333169 2.840.1.851844.3.579.2.23153-62-5119Aldpxsp01132462 2.840.1.418711.3.579.2.10609-15-6928Weijdxj67707767 2.840.1.970637.3.579.2.54826-92-5002Mopexge02745519 2..840.1.817514.3.579.2.49215-77-8196Xdisazg20386592 2.16.840.1.261191.3.579.2.06572-61-7195Ojakkzd57842807 2.16840.1.231401.3.579.2.52642-38-4028Xihavrp28667822 2..840.1.942541.3.579.2.40753-59-6517Gcabiiy28985526 2.16.840.1.712759.3.579.2.00723-62-9945Afuxxrg21097452 2.0.1.633939.3.579.2.76401-57-3189Tcrqdca14983618 2.840.1.591796.3.579.2.34513-44-7267Yobzcix55792362 2.0.1.455633.3.579.2.14437-81-8174Ykdusly89902093 2.0.1.097609.3.579.2.07594-15-8146Enqbmto953244714 2.0.1.094748.3.579.2.42177-05-6689Fxuhmkk675589382 2.840.1.317529.3.579.2.137193-98-4090Isheeuo413396818 2.840.1.567502.3.57[id number] 0w0dl3ij-4me0-0762-9q23-1dq8191r4zd8BxaltuqTymkvw BC/NZGXH776F8002 24598o6n-1c0q-9bk2-2253-as5s4380m3a9Yjrdbte73849923 2.840.1.858133.3.579.2.905Nkjddkj01469644 2.0.1.244250.3.579.2.531 Xiqwzqw71541323 2.0.1.161857.3.579.2.531 Social History DateTypeDetailFacilityStart: 02-28-2023 End: 27-92-5833Bewlezc useAlcohol useMP-[facility] [address] DO Work Phone: Start: 07-23-2021 End: 74-63-9081Vqiifjk smoking statusNever smoked tobacco (finding)[facility]: 05-42-0090Ztjpnim smoking statusNeLake County Memorial Hospital - Westtart: 02-28-2023 End: 48-83-0758Ryi Assigned At [facility] Centertart: 16-27-5651Ytexpfo use and exposureSmokeless tobacco non-userUnAccess Hospital Dayton Work Phone: Start: 02-28-2023 End: 25-95-2774Ofluwer intakeEx-drinker (finding)[facility] Work Phone: Start: 99-36-5460Duk Assigned At BirthNot on file [facility] Work Phone: Start: 02-18-2023 End: 92-99-6085Lwpkjkpa to SARS-CoV-2 (event)Not sureUnAccess Hospital DaytonStart: 48-31-7091Euv Assigned At [facility] Hospitalexual [facility] Start: 87-16-0206DlvVvjebp (finding)[facility] CenterTobamercy [facility] [place] smoking status NHISUnknown if ever smokedMagruder Memorial Hospital Work Phone: Functional Status RaywZrvynlerlhKfwllrKaqqusoj03-50-6280Odhfacobth euqiaf470/74Un[facility]10-10-2025Vital signs78 03/04/2025 10:32 AM Judi Singh RNTriHealth Work Phone: 1(173) 493-348510728416-95-4465QwdlgilvtrTriHealth Work Phone: 1(729) [phone]upzloe StatusN/AGeneral Surgery [place] Clinical Notes 11-30-2021 to 03-04-2025 Note Date & FsihDpxtZsersfaq98-17-9350 History of Present illness Narrative* Bradly Tanner [...] exam, discussion and plan. documented in this encounterTriHealth Work Phone: 1(365) 982-605810-10-2025 Instructions* Patient Instructions* Nina Stewart LPN - [...] through Care Everywhere. * Diet and health (Bengali) documented in this encounterTriHealth Work Phone: 1(582) 515-921107-02-2025 NoteSclerotherapy Sclerotherapy is a procedure that is [...] including vitamins, herbs, eye drops, creams, and rciz-dnu-bqpzdmc medicines. ? Any bleeding problems you have. [...] care provider tells you to. ? Taking rptb-uow-qtsjznh medicines, vitamins, herbs, and supplements. Tests ? [...] ? Do not wa (more content not included)...[facility] [id number] Note Radiology Sclerotherapy Sclerotherapy is a procedure [...] including vitamins, herbs, eye drops, creams, and tett-duh-pqroiou medicines. ? Any bleeding problems you have. [...] care provider tells you to. ? Taking qazl-bgf-rxttyax medicines, vitamins, herbs, and supplements. Tests ? [...] right away. Call 911. (more content not included)...[facility] [id number] NoteRadiology Sclerotherapy Sclerotherapy is a procedure that [...] including vitamins, herbs, eye drops, creams, and jbbf-ryo-pomttpt medicines. ? Any bleeding problems you have. [...] care provider tells you to. ? Taking psxf-cpx-rnvomgi medicines, vitamins, herbs, and supplements. Tests ? [...] right away. Call 911. (more content not included)...[facility] [id number] NotePROCEDURE: US Injection Varicose Vein Multiple HISTORY: [...] Neptali Islas MD 10/14/24 1:35 pm Technologist: [facility]05-12-2025 NoteRadiology Sclerotherapy Sclerotherapy is a procedure [...] including vitamins, herbs, eye drops, creams, and duna-twg-rzyiany medicines. ? Any bleeding problems you have. [...] care provider tells you to. ? Taking ytxc-key-dvqownr medicines, vitamins, herbs, and supplements. Tests ? [...] right away. Call 911. (more content not included)...[facility] [id number] NotePROCEDURE: US Injection Varicose Vein Multiple HISTORY: [...] 7 days. PERSONNEL: Kip Thao RN, Ghazala Ledesma, RDFL, T Final Dictated by: Neptali Islas MD Dictated DT/TM: 09/29/24 2:41 Signed (Electronic Signature): Neptali Islas MD 09/29/24 2:44 pm Technologist: [facility]10-25-2024 History of Present illness Narrative * Bradly Tanner MD - 03/19/2024 10:20 AM EDT Sergei Chavez is a 74 y.o. female Chief [...] exam, discussion and plan. documented in this [facility] Work Phone: [phone] [id number] Instructions* Patient Instructions* Huma Benitez LPN - [...] sent through Care Everywhere. * DASH Diet (Bengali) documented in this [facility] Work Phone: 1(666) 722-798612-26-2023 NoteChief Complaint consultation for skin lesion HPI [...] virus vaccine, inactivated 03/26/2023 Recorded SARS-CoV-2 (COVID-19) mRNAMUL.ORD!h16613 02/25/2022 Recorded SARS-CoV-2 (COVID-19) mRNA BNT-162b2 vax 05/11/2021 Recorded SARS-CoV-2 (COVID-19) mRNA BNT-162b2 vax 07/19/2020 Recorded 2023-05-09: TPV70 SARS-CoV-2 (COVID-19) mRNA BNT-162b2 vax 06/28/2020 Recorded 2023-05-09: TPV70 [facility]Comment [facility] above:Result Comment: Electronically Signed By: TITO [...] Hyperlipidemia, unspecified hyperlipidemia type [facility] Work Phone: 1(542) 618-853410-06-2023 Instructions* Patient Instructions* Nina Stewart LPN - [...] Follow up 9 month [facility] Work Phone: 1(504) 593-581605-09-2023 NoteCONSULTATION CONSULTATION DATE: 10/01/2022 CHIEF COMPLAINT: Includes [...] our patients to inform us about any duzh-apj-jayjnop medications or herbal remedies/nutritional supplements/alternative remedies. 2. [...] treatment options with their primary care provider.[facility] [id number] NotePROCEDURE: XR FOOT LT MIN 3 VIEWS [...] Electronically authenticated by: ANANTH VALENTINE Date: 2022-07-31 10:34[facility]10-26-2022 NotePROCEDURE: XR FOOT LT MIN 3 VIEWS [...] authenticated by: NEPTALI ISLAS Date: 2022-03-20 21:30[facility] [id number] NotePROCEDURE: XR FOOT LT MIN 3 VIEWS [...] Electronically authenticated by: ANANTH VALENTINE Date: 2022-02-19 18:22[facility]08-30-2022 NotePROCEDURE: XR FOOT LT MIN 3 VIEWS [...] Electronically authenticated by: NEPTALI ISLAS Date: 2022-01-22 10:35[facility]08-10-2022 NotePROCEDURE: XR FOOT LT MIN 3 VIEWS [...] Electronically authenticated by: ANANTH VALENTINE Date: 2022-01-02 16:27[facility]08-05-2022 NotePROCEDURE: XR FOOT LT MIN 3 VIEWS [...] Electronically authenticated by: NEPTALI ISLAS Date: 2021-12-28 07:39[facility]07-08-2022 NotePROCEDURE: XR FOOT LT MIN 3 VIEWS [...] Electronically authenticated by: NEPTALI ISLAS Date: 2021-11-30 08:48[facility] CampusEvaluation + Plan note No data available for this section [facility]* Diagnosis Palpitation- Primary Palpitations Paroxysmal atrial tachycardia Paroxysmal supraventricular tachycardia Premature ventricular contractions Other premature beats Class 1 obesity Primary hypertension Unspecified essential hypertension Hyperlipidemia, unspecified hyperlipidemia type documented in this encounter [facility] Work Phone: Evaluation noteNo assessment information available [facility] Work Phone: Evaluation note* Diagnosis Palpitation- Primary Palpitations Paroxysmal atrial tachycardia (CMS-HCC) Paroxysmal supraventricular tachycardia Premature ventricular contractions Other premature beats Primary hypertension Unspecified essential hypertension Hyperlipidemia, unspecified hyperlipidemia type BMI 32.0-32.9,adult documented in this encounter [facility] Work Phone: Evaluation note* Diagnosis Premature ventricular contractions- Primary Other premature beats Palpitation Palpitations Paroxysmal atrial tachycardia Paroxysmal supraventricular tachycardia Primary hypertension Unspecified essential hypertension Hyperlipidemia, unspecified hyperlipidemia type BMI 32.0-32.9,adult Never smoked tobacco Essential (primary) hypertension Unspecified essential hypertension documented in this encounter [facility] Work Phone: History of Present illness Narrative* [...] will see her back in 1 year [facility] [address] DO Work Phone: History of Present [...] year plan to repeat her lab work [facility] DO Work Phone: Hospital Discharge instructions No data available for this section [facility] CenterProgress note No data available for this section General Surgery [place] Reason for referral (narrative)* Consultation (Routine) - AuthorizedSpecialtyDiagnoses / ProceduresReferred By ContactReferred To ContactCardiology Diagnoses Paroxysmal atrial tachycardia Premature ventricular contractions Procedures Follow Up In Cardiology Bradly Tanner MD [address] [facility] [address], [address] [address] Referral IDStatusReasonStart DateExpiration DateVisits RequestedVisits [id number]/6/20234/ [facility] Work Phone: Reauyd for referral (narrative)No reason for referral information availableMagruder Memorial Hospital Work Phone: Summary Purpose Family History [...] section and content) DATE CREATED AUTHOR 03/27/2018 [facility] DATE CREATED AUTHOR AUTHOR'S ORGANIZ ATION 08/13/2019 [facility] DATE CREATED AUTHOR AUTHOR'S ORGANIZ ATION 03/01/2022 [facility] DATE CREATED AUTHOR AUTHOR'S ORGANIZ ATION 03/02/2022 [facility] DATE CREATED AUTHOR AUTHOR'S ORGANIZ ATION 10/10/2022 [facility] DATE CREATED AUTHOR AUTHOR'S ORGANIZ ATION 10/12/2023 [facility] DATE CREATED AUTHOR AUTHOR'S ORGANIZ ATION 10/23/2024 [facility] DATE CREATED AUTHOR AUTHOR'S ORGANIZ ATION 12/03/2024 [facility] DATE CREATED AUTHOR AUTHOR'S ORGANIZ ATION 01/09/2025 [facility] DATE CREATED AUTHOR AUTHOR'S ORGANIZ ATION 03/06/2025 [facility] DATE CREATED AUTHOR AUTHOR'S ORGANIZ ATION 03/22/2025 [facility] Reason for Visit (unrecogniz ed section and content) ReasonCommentsAnnual Lomf5daMhllfiQnwtptyzOxuzki-em9 yrSpecialtyDiagnoses / ProceduresReferred By ContactReferred To ContactCardiology Diagnoses Paroxysmal atrial tachycardia (CMS-HCC) Premature ventricular contractions Procedures Follow Up In Cardiology Bradly Tanner MD [address] [facility] [address], [address] [address] Phone: tel: fax: Referral IDStatusReasonStart DateExpiration DateVisits RequestedVisits [id number]/6/[id number] Exam1 year follow up for palpitationsSpecialtyDiagnoses / ProceduresReferred By ContactReferred To ContactCardiology Diagnoses Palpitation Procedures Follow Up In Cardiology Bradly Tanner MD [address] [facility] [address], [address] [address] Phone: tel: fax: Bradly Tanner MD [facility] [facility] [address], [address] [address] Phone: tel: fax: Referral IDStatusReasonStart DateExpiration DateVisits RequestedVisits [id number]/25/202410/25/202511 Care Teams (unrecognized sec tion and content) Team MemberRelationshipSpecialtyStart DateEnd Zeny Stanley MD [address] [place], [place] [id number] PCP - General06/01/19 Team Status: Active Member Role Status Dates Zeny Stanley MD Primary Care Provider Active Team Status: Inactive Member Role Status Dates Zeny Stanley MD Primary Care Provide r, Attending Provider Active Start: March 10, 2024 End: March 10, 2024MoSteve Conrad ProviderActiveStart: March 10, 2024 End: March 10, 2024Team MemberRelationshipSpecialtyStart DateEnd Date Zeny Stanley MD [address] [place] [address] PCP - General06/01/19 Team Status: Inactive Member Role Status Dates Zeny Stanley MD Primary Care Provider Active Start: February 01, 2025 End: February 01, 2025Joey Friedman ProviderActiveStart: February 01, 2025 End: February 01, 2025 Team Status: Inactive Member Role Status Dates Zeny Stanley MD Primary Care Provider Active Start: February 22, 2025 End: February 22, 2025MoJoey Conrad ProviderActiveStart: February 22, 2025 End: February 22, 2025Team MemberRelationshipSpecialtyStart DateEnd Date Zeny Stanley MD [address] [place] [address] PCP - General06/01/19 Goals (unrecognized section and [...] BE BASED ON THE PRIMARY CLINICAL RECORDS. [facility]. provides no warranty or guarantee of the accuracy or completeness of information in this document.
--- OUTSIDE RECORDS SUMMARY | 2025-03-29 07:59 | XMS_ITS | Clinical Summary ---
Author Organization [facility] Address [address] [place] [address], [address] [place] [address] Care Team Providers Care Counter Hop Name Role Phone Unavailable Primary Care Provider Unavailabl e Social History Tobacco UseTypesPacks/DayYears UsedDateSmoking Tobacco: Never Assessed CommentsUnknownSex and Gender InformationValueDate RecordedSex Assigned at Not on fileLegal DjnUhtgnm92/10/2013 2:10 PM ESTGender IdentityNot on fileSexual OrientationNot on file Plan of Treatment Not on file
--- OUTSIDE RECORDS SUMMARY | 2025-03-29 08:00 | XMS_ITS | Clinical Summary ---
Author Organization [facility] Address [address] [place] [address] Care Team Providers Care Police Surgeon Name Role Phone Unavailable Primary Care Provider Unavailabl e Social History Tobacco UseTypesPacks/DayYears UsedDateSmoking Tobacco: Never Assessed CommentsUnknownSex and Gender InformationValueDate RecordedSex Assigned at Not on fileLegal JcqEqjwsq02/29/2022 10:20 PM EDTGender IdentityNot on file Sexual OrientationNot on file Last Filed Vital Signs Vital SignReadingTime TakenCommentsBlood Xqblfkwi074/8010 1:46 PM EDT Pulse--Temperature--Respiratory Rate--Oxygen Gtszcqqvew21%03/16/2019 1:48 PM EDT Inhaled Oxygen Concentration--Cmctaq19.6 kg (180 lb)03/16/2019 1:44 PM EDTHeight 165.1 cm (5' 5 )03/16/2019 1:42 PM EDTBody Mass Index29.9503/16/2019 1:42 PM EDT Plan of Treatment Not on file
--- OUTSIDE RECORDS SUMMARY | 2025-03-29 08:00 | XMS_ITS | Clinical Summary ---
Author Organization [email or web address] Address [id number] [address] [place] [address] Care Team Providers Care Power Press Operator Name Role Phone Familia Stanley MD Primary Care Provider [phone] Allergies No known active allergies Medications MedicationSigDispense [...] tablet Active Active Problems ProblemNoted DateDiagnosed DateSupraventricular nkggxbgtfhy69/11/2019 PalpitationsLightheadednessDyspnea on exertionHypertensionAnxietyAltered mental status Social History Tobacco UseTypesPacks/DayYears UsedDateSmoking Tobacco: NeverSmokeless Tobacco: NeverAlcohol UseStandard Drinks/WeekCommentsYes0 (1 standard drink = 0.6 oz pure alcohol)OCCASSIONALLYChildcareAnswerDate PnblwvqdSlaaywqdoHedrwzv12/30/2019 EmploymentAnswerDate GeuuyzohIfqqmcuiytJyxllmx20/30/2019Purpose - LifeAnswerDate RecordedPurpose and direction in cwmaNqyfzaz35/11/2021CommentsUnknownSex and Gender InformationValueDate RecordedSex Assigned at BirthNot on fileLegal AssXycrtk67/30/2019 1:37 PM EDTGender IdentityNot on fileSexual OrientationNot on file Last Filed Vital Signs Vital SignReadingTime TakenCommentsBlood Jfandjnu929/7004/05/2019 9:35 AM EST Lnxyf051104/05/2019 9:35 AM ESTTemperature--Respiratory Rate--Oxygen Saturation-- Inhaled Oxygen Concentration--Okzpkz62.6 kg (182 lb)04/05/2019 9:35 AM ESTHeight 165.1 cm (5' 5 )04/05/2019 9:35 AM ESTBody Mass Index30.29106/05/2018 9:35 AM EST Plan of Treatment Health MaintenanceDue DateLast DoneCommentsDepression Ahbgjdbue84/04/1962Tobacco Iwggdnvjh04/04/1962DTaP,Tdap and Td Vaccines (1 - Tdap)1969Zoster (Shingles) Vaccine (1 of 2)02/27/2000Fall Risk Qijwgtivi14/04/2015Influenza Oapgrmi1401/24/2025RSV ( or age 60+ yrs) (1 - 1-dose 75+ series)2025 Medical Devices Not on file Insurance Care Teams Team MemberRelationshipSpecialtyStart DateEnd Date Familia Stanley MD PCP - GeneralFamily Ttmhvefd37/30/19
--- OUTSIDE RECORDS SUMMARY | 2025-03-29 08:00 | XMS_ITS | Clinical Summary ---
Author Organization [facility] Address [address] [place] [address] Phone Care Team Providers Care Agriculture Department Chair Name Role Phone Familia Stanley MD Primary Care Provider [phone] Allergies No known active allergies Medications MedicationSigDispense [...] mg) by mouth once daily. 90 tablet 301/03/252892/10/2025Discontinued(Reorder) metoprolol succinate XL (Toprol-XL) 50 mg 24 hr tablet Indications:Essential (primary) hypertension,PalpitationTake 1 tablet (50 mg) by mouth 2 times a day. 180 tablet Discontinued(Reorder) Active Problems ProblemNoted DateDiagnosed DateNever smoked jlseebe5303/04/2025MI 32.0-32.9,adult 03/19/20246305Bgfjuvjwesylml23/30/5487Nduwuossmoyh05/30/0073Ldgnjamlbej69/30/2023 Paroxysmal atrial dagtplpeshv66/30/2023remature ventricular contractions 01/22/2023 Resolved Problems ProblemNoted DateDiagnosed DateResolved DateClass 1 [id number] Encounters DateTypeDepartmentCare ErlpRmtmnibebij64/10/2025 10:30 AM EDTOffice Visit [facility] [address] [phone] Robi Tanner MD Premature ventricular contractions (Primary Dx); Palpitation; Paroxysmal atrial tachycardia; Primary hypertension; Hyperlipidemia, unspecified hyperlipidemia type; BMI 32.0-32.9,adult; Never smoked tobacco; Essential (primary) hypertension Discharge Disposition: Home03/04/20251025Botsrw05/30/2025Orders Only [facility] [address] [place] [address] Robi Tanner MD from Last 3 Months Immunizations ImmunizationAdministration DatesNext DueFlu vaccine (IIV4), preservative free *Check age/dose*04/08/2018Flu vaccine, quadrivalent, high-dose, preservative free, age 65y+ (FLUZONE)03/26/2022Flu vaccine, trivalent, preservative free, HIGH-DOSE, age 65y+ (Fluzone)03/09/2019Flu vaccine, trivalent, preservative free, age 6 months and greater (Fluarix/Fluzone/Flulaval)04/04/2015Influenza, Seasonal, Quadrivalent, Trmtokdblj74/25/2021Influenza, Hxnygtaybyp57/01/2019 Influenza, injectable, lwqbeujxaxbv57/07/2014Influenza, seasonal, injectable 03/19/2013Pfizer COVID-19 vaccine, bivalent, age [...] InformationValueDate RecordedSex Assigned at BirthNot on fileLegal JklGtavbn74/26/2022 3:19 AM ESTGender Identity Not on fileSexual OrientationNot on file Last Filed Vital Signs Vital SignReadingTime TakenCommentsBlood Orcwqvor453/7403/04/2025 10:32 AM EDT Msksg907103/04/2025 10:32 AM EDTTemperature--Respiratory Rate--Oxygen Saturation-- Inhaled Oxygen Concentration--Kcuwml01.9 kg (191 lb 9.6 oz)03/04/2025 10:32 AM ADPMrhbrd307.6 cm (5' 4 )03/04/2025 10:32 AM EDTBody Mass Index32.8903/04/2025 10:32 AM EDT Plan of Treatment DateTypeDepartmentCare Team (Latest Contact Info)Vckprojlwfy70/09/2026 10:30 AM EDTOffice Visit [place] [address] [phone] Robi Tanner MD [facility] [facility] [address] [place] [address] Health MaintenanceDue DateLast DoneCommentsCT Jpbxnsxkyeiq1950Colonoscopy 1950FIT1950Lipid Panel02/26/19502747Arrokfppnqbhj1950MMR Vaccines (1 of 1 - Standard series)1Diabetes Yxhyuyvnu36/04/1968Hepatitis C Olrnmbqpo51/04/1968DTaP/Tdap/Td Vaccines (1 - Tdap)02/27/1972Influenza Vaccine (#1)51, 03/26/2023, 03/26/2022, Additional history exists COVID-19 Vaccine ( - season)2RSV High Risk: (Elderly (60+) or Population) (1 - 1-dose 75+ series)2025Medicare Annual Wellness Visit (AWV)603/10/2024, 11/02/2018, 08/27/2016Bone Density Scan/, 07/12/2021, 08/25/2018, Additional history exists Colorectal Cancer Nkibdgmos22/31/2028FIT-DNA (Cologuard), 2Pneumococcal MineqaqIazitbnuk86/27/2019, 08/13/2018, 05/26/2018, Additional history existsZoster BhdepqqeGoxnktrnd12/12/2021, 04/11/2020Welcome to Medicare HgkmuBqehwdhtsdfv95/06/2025, 11/02/2018, 08/27/2016HIB VaccinesAged OutNo longer eligible based [...] topic Procedures Procedure NamePriorityDate/TimeAssociated DiagnosisCommentsNON- HIE LIPID OEOVUNhzmebc51/30/2025 10:13 AM EDT NON- HIE ALANINE YGHBSSWGUKLVIIHBEjfnppu69/30/2025 10:13 AM EDT NON- HIE ASPARTATE AMINO XJAKLCTOHIYJnifnki56/30/2025 10:13 AM EDT NON-[facility] HIE BASIC METABOLIC JVBQXNpepocv11/30/2025 10:13 AM EDT from Last 3 Months Results * [facility] Basic Metabolic Panel (02/22/2025 10:13 AM EDT)ComponentValueRef RangeTest MethodAnalysis TimePerformed AtPathologist SignatureNON-[facility] Xwmlafd7690 - 100 mg/dLEast [facility] CtrComment:Random Glucose Reference Range is dependent on time and content of last meal. Glucose of more than 200 mg/dL in a nonstressed, ambulatory subject supports the diagnosis of Diabetes Mellitus. ADA recommended reference rangeNON-[facility] Blood Urea Lvjobqlk366 - 25 mg/dLEast [facility]trSELECT [facility] Creatinine0.75 0.60 - 1.20 mg/dLEast [facility]trSELECT [facility] ESTIMATED GFR>60.[address] [facility] [facility] Wmpgnw368699 - 145 mmol/[facility]trSELECT [facility] Potassium4.63.5 - 5.1 mmol/[place] Fekeislj02072 - 107 mmol/[facility] Carbon Itftcqi52.421.0 - 31.0 mmol/[facility] Anion Gap9.26.0 - 15.0[facility]trSELECT [facility] Calcium9.68.6 - 10.3 mg/dLEast [facility] CtrSpecimen (Source) Anatomical Location / LateralityCollection Method / VolumeCollection Time Received Time[facility] [place] Plasma specimen or serum specimen or whole blood specimen 02/22/2025 10:13 AM EDT Narrative Authorizing ProviderResult TypeResult StatusModior COE BLOOD ORDERABLESFinal ResultPerforming OrganizationAddressCity/State/ZIP CodePhone Number [facility] [address] [place] [address], [facility] [address] [place] [address] * NON-[facility] HIE Lipid Panel (02/22/2025 10:13 AM EDT)ComponentValueRef RangeTest MethodAnalysis TimePerformed AtPathologist SignatureNON- HIE Rummgssnytd903 140 - 200 mg/dLEast [facility] CtrComment:Chol less than 200 mg/dl low risk Chol 201-239 mg/dl borderline risk Chol 240 mg/dl and greater high riskNON-[facility] HDL Apqtqvevxar9731 - 92 mg/dLEast [facility]tr Comment:HDL CHOL ATP-III CLASSIFICATION Cardiovascular Risk HDL > or equal to 60 mg/dL LOW HDL < 40 mg/dL HIGHNON-[facility] Triglyceride w/Zewjed5545 - 149 mg/dLEast [facility] CtrComment:TRIG ATP III CLASSIFICATION TRIG less than 150 mg/dL Normal TRIG 150-199 mg/dL Borderline high BFCS952-943 mg/dL High TRIG greater than 500 mg/dL Very high Standard traceable to the Center for Disease Conrtrol and Prevention (CDC) test method.NON- HIE LDL Cholesterol,Jkpacqkruc981 - 100 mg/dLEast [facility] CtrComment:LDL ATP III CLASSIFICATION LDL less than 100 mg/dL Optimal LDL 100-129 mg/dL Near or above optimal LDL 130-159 mg/dL Borderline high LDL 160-189 mg/dL High LDL greater than 189 mg/dL Very highNON- HIE VLDL WWGHULXVCOM09bp/dLEast [facility] CtrNON- HIE Chol/HDL Ratio2.7<5.0[facility] CtrComment:PERFORMED BY:[facility] [place], [place] [phone] MEDICAL DIRECTORNGOZI DONALD M.D.Specimen (Source)Anatomical Location / LateralityCollection Method / VolumeCollection TimeReceived TimeSAINT [facility] [place] Plasma specimen or serum specimen or whole blood mtglgket76/30/2025 10:13 AM EDT Narrative Authorizing ProviderResult TypeResult StatusRobi COE BLOOD ORDERABLESFinal ResultPerforming OrganizationAddressCity/State/ZIP CodePhone Number [facility] [address] [place] [address], [facility] [address] [place] [address] * NON-[facility] HIE Aspartate Amino Transferase (02/22/2025 10:13 AM EDT)ComponentValue Ref RangeTest MethodAnalysis TimePerformed AtPathologist SignatureNON- HIE Aspartate Amino Bdawedvdabo3383 - 39 U/[facility] CtrSpecimen (Source)Anatomical Location / LateralityCollection Method / VolumeCollection TimeReceived TimeSAINT [facility] [place] Plasma specimen or serum specimen or whole blood xjhhmuoq15/30/2025 10:13 AM EDT Narrative Authorizing ProviderResult TypeResult StatusRobi COE BLOOD ORDERABLESFinal ResultPerforming OrganizationAddressCity/State/ZIP CodePhone Number [facility] [address] [place] [address], [facility] [address] [place] [address] * NON-[facility] HIE Alanine Aminotransferase (02/22/2025 10:13 AM EDT)ComponentValueRef RangeTest MethodAnalysis TimePerformed AtPathologist SignatureNON- HIE Alanine Puldlamhyphprbqr203 - 52 U/[facility] CtrSpecimen (Source)Anatomical Location / LateralityCollection Method / VolumeCollection TimeReceived TimeSAINT [facility] [place] Plasma specimen or serum specimen or whole blood qgbxiozu79/30/2025 10:13 AM EDT Narrative Authorizing ProviderResult TypeResult StatusRobi COE BLOOD ORDERABLESFinal ResultPerforming OrganizationAddressCity/State/ZIP CodePhone Number [facility] [address] [place] [address], [facility] [address] [place] [address] from Last [address] [place] [address] Care Teams Team MemberRelationshipSpecialtyStart DateEnd Familia Stanley MD [address] [place] [address] PCP - General06/01/19
--- OUTSIDE RECORDS SUMMARY | 2025-03-29 08:00 | XMS_ITS | Patient Health Record ---
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 Name Role Phone Jam Stanley Primary Care Provider Allergies No Known Allergies Results Component Value Reference Range Notes UA DIP NONAUTO WO MICRO (810 02) - IN OFFICE Reviewed date:03/18/2025 10:45:12 AM Interpretation: Performing Lab: Notes/Report: COLOR Straw GQXGCONsaljieDCMFORZqKIEFOYJBJvUAOBXN0MSSSQCSW GRAVITY1.010BLOOD+++PH6.5PROTEIN 100UROBILINOGENnNITRITEnLEUKOCYTE ESTERASE+++UA RANDOM W or MICROSCOPIC Reviewed date:02/01/2025 02:38:03 PM Interpretation: Performing Lab: Notes/Report: [facility] ,Color UrineYELLOWYELLOWClarity UrineCLEARCLEARSpecific [place] Urine>=1.030 1.005-1.025pH Urine5.05.0-9.0Protein UrineTRACENEG/TRACE mg/dLGlucose Urine UA NEGATIVENEGATIVE mg/dLBilirubin UrineSMALLNEGATIVEKetones Pvzgm85CBACBUMH mg/dL Blood UrineNEGATIVENEGATIVENitrite UrineNEGATIVENEGATIVEUrobilinogen Urine1.0 0.2-1.0 EU/dLLeukocyte Esterase UrineTRACENEGATIVEWBC Urine2-5NONE SEEN #/HPFRBC Urine0-20-2 #/HPFBacteria UrineTRACENONE SEEN #/HPFMucus UrineNONE SEENNONE SEEN Squamous Epithelial Cell UrineFEWNONE/RARE #/LPFCrystals Seen?SeenNone Seen #/HPFCalcium Oxalate Crystals UrineMODERATECast Seen?SEENNONE SEEN #/LPFHyaline Casts UrineFEWUrine Culture IndicatedALREADY ORDEREDPerforming Lab:see noteML - [facility] LBUA DIP NONAUTO WO MICRO (34481) - IN OFFICE Reviewed date:01/18/2025 10:41:48 AM Interpretation: Performing Lab: Notes/Report: COLORyellowCLARITYcloudyGLUCOSEnegBILIRUBINnegKETONEnegSPECIFIC GRAVITY1.015 GUYBMrknwyMG4AYEAEEPrjgtuPHSQUDQCXPMVwibLZLMFPUaohHUXYRWAPF ESTERASElargeUA (Urinalysis, Dipstix only - w/o micro) Reviewed date:04/12/2024 10:33:07 AM Interpretation: Performing Lab: Notes/Report: GLUCOSE-0 - 133 MG/DLALBUMIN-NEG - NEG MG/DLBILIRUBIN-NEG - NEG MG/DLSPECIFIC GRAVITY1.0001.001 - 1.035KETONES-NEG - NEG MG/DLBLOOD, UR+++PH, UR6.55 - 9 UROBILNOGEN0.20.2 - 1 MG/DLNITRITE-NEG - NEGESTERASE (MACHELLE)+++NEG - NEG MG/DL Urine Culture - [facility] Reviewed date:03/21/2025 07:05:36 PM Interpretation: Performing Lab: Notes/Report: [facility] ,[facility] For Report Urine Culture - [facility] [place] No Growth 2 Days Urine Culture - [facility] [place] Urine Culture - [facility] No Growth 2 Days U[facility] Urine Culture - [facility] No Growth 2 Days Urine Culture - [id number] [place] [address] Urine Culture - [facility] No Growth 2 Days Performing Lab:see noteML - [facility] LBUA RANDOM W or MICROSCOPIC Reviewed date:03/18/2025 03:04:00 PM Interpretation: Performing Lab: Notes/Report: [facility] Ian UrineLT. YELLOWYELLOWClarity UrineCLEARCLEARSpecific [place] Urine<=1.005 1.005-1.025pH Urine6.55.0-9.0Protein UrineNEGATIVENEG/TRACE mg/dLGlucose Urine UANEGATIVENEGATIVE mg/dLBilirubin UrineNEGATIVENEGATIVEKetones UrineNEGATIVE NEGATIVE mg/dLBlood UrineLARGENEGATIVENitrite UrineNEGATIVENEGATIVEUrobilinogen Urine0.20.2-1.0 EU/dLLeukocyte Esterase UrineMODERATENEGATIVEWBC Ntswt94-15VIUE SEEN #/HPFRBC Btlxj6-777-1 #/HPFBacteria UrineTRACENONE SEEN #/HPFMucus Urine NONE SEENNONE SEENSquamous Epithelial Cell UrineRARENONE/RARE #/LPFCrystals Seen?None SeenNone Seen #/HPFCast Seen?NONE SEENNONE SEEN #/LPFUrine Culture IndicatedALREADY ORDEREDPerforming Lab:see noteML - [facility] Urine Culture - [facility] Reviewed date:02/03/2025 07:50:06 PM Interpretation: Performing Lab: Notes/Report: [facility] ,[facility]rine [facility] 75,000 colonies/ml mixed Urine Culture - FRMCbacterial skin contaminants Urine Culture - [facility] 75,000 colonies/ml mixed Urine Culture - [facility]2 Days Urine Culture - [facility] 75,000 colonies/ml mixed Urine Culture - [facility] Urine Culture - [facility] 75,000 colonies/ml mixed Urine Culture - [facility]MCTesting performed at [facility] Urine Culture - [facility] 75,000 colonies/ml mixed Urine Culture - [id number] [place] [address] Urine Culture - FR 75,000 colonies/ml mixed Performing Lab:see noteML - [facility] Reason For Referral No Information Medications Medication SIG (Take, Route, Frequency, Duration) Notes Start Date End Date Status ALPRAZolam 0.25 MG 1 tablet Orally TID PRN; Dura tion: 30 days 5ActiveDiclofenac Sodium 75 MG1 tablet as needed Orally Twice a day; Duration: 3ActiveCefdinir 300 MG2 capsules Orally once a day; Duration: 10 days5ActiveLisinopril 40 MG1 tablet Orally Once a day; Duration: 90 daysActiveAmitriptyline HCl 75 MG1 tablet Orally Once a day; Duration: 90 daysActiveDiclofenac Potassium 50 MG1 tablet with food or milk as needed Orally TID; Duration: 30 days5ActiveSpironolactone 25 MG1 tablet Orally QD; Duration: 30 daysActiveMetoprolol Tartrate 50 MGTAKE 1 TABLET BY MOUTH TWICE A DAY WITH FOOD; Duration: 90ActiveSimvastatin 20 mgTAKE 1 TABLET DAILY IN THE EVENINGActiveBactrim DS 800-160 MG1 tablet Orally bid; Duration: 10 days5ActiveAlendronate Sodium 70 MGTAKE 1 TABLET BY MOUTH ONE TIME PER WEEK; Duration: 84Active Immunizations Vaccine Route Administration Date Status Comme nts Flu, Fluad (89323) 65 yrs an d older, single-dose syringe (8678-8200) Unknown 03/25/2024 Administered Pneumococcal (Pneumovax 23)Sdinkoc2208/13/2018Administered Social History Tobacco Use: Social History Observation Description Date Details (start date - stop date) Never Smoker NA - NA Tobacco Use/Smoking Question Answer Notes Patient is a nonsmoker Alcohol Screen (Audit-C) Question Answer Notes Did you have a drink containing alcohol in the p ast year? No Zbqthg5BpxggsrhqkgzppWxzmdbewBJSKF-M (Standard) Question Answer Notes Did you have [...] in the past year?Monthly or less (1 point)Yfvrqt8PwuunvsfdrilcfLisgsxjd Problems Problem Type SNOMED Code ICD Code Onset Dates Problem Status W/U Status Risk Notes Problem Essential hypertension (08846166 ) Essential (primary) hypertension (I10) ActiveconfirmedProblemAcute bronchitis (02744744)Acute bronchitis due to other specified organisms (J20.8)ActiveconfirmedProblemOsteoarthritis of knee (458970940)Unilateral primary osteoarthritis, left knee (M17.12)Activeconfirmed ProblemContracture of joint of left ankle (disorder) (993539113920834) Contracture, left ankle (M24.572)ActiveconfirmedProblemPlantar fascial fibromatosis (94813344)Plantar fascial fibromatosis (M72.2)Activeconfirmed ProblemMetatarsalgia of right foot (311059935723718)Metatarsalgia, right foot (M77.41)ActiveconfirmedProblemPain in right foot (575644755780156)Pain in right foot (M79.671)ActiveconfirmedProblemPain in left foot (822721112998018)Pain in left foot (M79.672)ActiveconfirmedProblemStress fracture of right foot (disorder) (11443925755033650)Stress fracture, right foot, subsequent encounter for fracture with routine healing (M84.374D)ActiveconfirmedProblemNonunion of fracture (746712122)Stress fracture, left foot, subsequent encounter for fracture with nonunion (M84.375K)ActiveconfirmedProblemContusion of right foot (90658413636948515)Contusion of right foot, subsequent encounter (S90.31XD) ActiveconfirmedProblemFatigue (31359106)Fatigue (R53.83)ActiveconfirmedProblem Insomnia (455653181)Insomnia (G47.00)ActiveconfirmedProblemKnee pain (3057197651)Knee pain (M25.569)ActiveconfirmedProblemOsteoarthritis of knee (676742605)Knee osteoarthritis (M17.9)ActiveconfirmedProblemArthralgia of the ankle and/or foot (599793867)Right ankle pain (M25.571)ActiveconfirmedProblem Hallux valgus of right foot (9555192591)Hallux valgus of right foot (M20.11) ActiveconfirmedProblemAcquired hammer toe of right foot (2277927290214030)Hammer toe of right foot (M20.41)ActiveconfirmedProblemVenous varices (228406459) Complicated varicose veins (I83.899)ActiveconfirmedProblemPure hypercholesterolemia (834944849)High blood cholesterol (E78.00)Activeconfirmed ProblemAge-related osteoporosis (993226877)Osteoporosis, unspecified osteoporosis type, unspecified pathological fracture presence (M81.0)Active confirmedProblemLocalized, primary osteoarthritis of the ankle and/or foot (108067078)Arthritis, midfoot (M19.079)Activeconfirmed Vital Signs Blood pressure diastolic 92 mm Hg 11/15/2024 Ktjzuu72 in11/15/2024lood pressure afqhuoxa479 mm Hg11/15/20249885Yjxipv189.2 lbs 11/15/2024BMI32.65 kg/m211/15/2024 Encounters Encounter Location Date Provider Diagnosis [facility] [address] [place] [address] 07/29/2024 Jam Hoy Encounter for Medica re annual wellness exam Z00.00 [facility] [address] [facility] [place] [address] 04/12/2024 Jam Hoy Dysuria R30.0 [facility] [address] [facility] [place] [address] 01/18/2025 Jam Hoy Dysuria R30.0 [facility] [address] [facility] [place] [address] 03/18/2025 Jam Hoy Burning with urinati on R30.0 and Urinary frequency R35.0 [facility] [address] [facility] [place] [address] 07/14/2024 Jam Hoy Left knee pain M25.5 62 and Knee osteoarthritis M17.9 [facility] [address] [facility] [place] [address] 11/15/2024 Jam Hoy Essential (primary) hypertension I10 and Insomnia G47.00 [facility] [address] [facility] [place] [address] 07/21/2024 Jam Hoy Unilateral primary osteoarthritis, left knee M17.12 [facility] [address] [facility] [place] [address] 03/21/2025 Jam Hoy [facility] [place] [address] 08/12/2024Doug [facility] [facility] [place] [address]/07/2024Doug [facility] [facility] [place] [address]/Doug HoyEssential (primary) hypertension I10 [facility] [facility] [place] [address] 01/18/2025Doug HoyUTI (urinary tract infection) N39.0[facility] [facility] [place] [address]/01/2025[facility] [facility] [place] [address]/ Jam HoyUTI (urinary tract infection) N39.0[facility] [facility] [place] [address]/oug HoyBVEast [facility] [facility] [place] [address]/oug [facility] [facility] [place] [address]/10/2024 Jam HoyEssential (primary) hypertension F19TiglzswAspen [facility] Hospital[address] [facility] [place] [address]/11/2024Doug HoyEssential (primary) hypertension P35StknscgAspen Valley Hospital[address] [facility] [place] [address]/Doug Hoy Assessments Encounter Date Diagnosis (ICD Code) Assessment Notes Treatment Notes Treatment Clinical Notes Section Notes 04/12/2024 Dysuria (ICD-10 - R30.0) 07/29/2024Encounter for Medicare annual wellness exam (ICD-10 - Z00.00) 07/14/2024Knee osteoarthritis (ICD-10 - M17.9)07/14/2024Left knee pain (ICD-10 - M25.562)07/21/2024Unilateral primary osteoarthritis, left knee (ICD-10 - M17.12) 11/15/2024Essential (primary) hypertension (ICD-10 - I10)didnt take med today 11/15/2024Insomnia (ICD-10 - G47.00)prn meds aand the nvatlnlyidduix77/26/2025 Dysuria (ICD-10 - R30.0)03/18/2025urning with urination (ICD-10 [...] End Date [place] [address] [place] [address] [id number] Damion Newtonelf - patient is the yegdiqs66 2015[facility] [address] [place], [place] [id number] Damion Newtonelf - patient is the ijdtblv73 2024 Medications Administered Medication Instructions Date of [...] Stripping Bilateal Low er Extremities Cataract Extractions Hlfdijmta1638Zymzp HysterectomyHospitalization History Reason Date(Month/Year) Just for surgery
--- OUTSIDE RECORDS SUMMARY | 2025-03-29 08:00 | XMS_ITS | Clinical Summary ---
Author Organization [facility] Address [address] [place] [address] Care Team Providers Care Assistant Track And Field Coach Name Role Phone Familia Stanley MD Primary Care Provider +[phone] Camilo Lord MD Unavailable [phone] Allergies No known active allergies Medications MedicationSigDispense [...] number is lower riskNot on file05/03/2020Data from: https://www.[email or web address].[email or web address].[facility].edu/. Last address used for calculationNot on file05/03/2020CommentsUnknownSex and Gender InformationValueDate RecordedSex Assigned at BirthNot on fileLegal SexFemale 05/03/2013 2:25 PM ESTGender IdentityNot on fileSexual OrientationNot on file Last Filed Vital Signs Vital SignReadingTime TakenCommentsBlood Zzfpgtfm739/8102/27/2018 10:35 AM EDT Vlmxn930202/27/2018 10:35 AM AJILrajefsqbyh13.2 ??C (97.1 ??F)10/10/2015 11:01 AM EDTRespiratory Vews2627 10:35 AM EDTOxygen Vtlodqeipk58%02/27/2018 10:35 AM EDTInhaled Oxygen Concentration--Erivih67.7 kg (178 lb)02/27/2018 10:35 AM RGFKoombe133.1 cm (5' 5 )02/27/2018 10:35 AM EDTBody Mass Index29.6202/27/2018 10:35 AM EDT Plan of Treatment Health MaintenanceDue DateLast DoneCommentsAnxiety Xjdaidvwd76/04/1968Depression Tshkymutm18/04/1968Hepatitis C Prkukvrjz25/04/1968DTaP,Tdap,Td Vaccine (1 - Tdap)1969CT Gccffqrsfjai89/04/1995Cologuard (FIT-DNA)1995Colonoscopy 1995Colorectal Cancer Tjkczatha20/04/1995Diabetes Jfxsysjef13/04/1995Fecal Occult Blood1995Lipid Ncvkjwhym26/04/4145Xfikwamvqvzvv01/04/1995 Pneumococcal Vaccine: 50+ (1 of 1 - PCV)02/27/2000Shingrix Vaccine (1 of 2) 02/27/2000Bone Density Yosjsxxom25/04/2015dvance Directive Dyiymvqisl90/01/2025 Covid-19 Vaccine (1 - 2024- season)2025Influenza Vaccine (#1)2025 RSV Vaccine (1 - 1-dose 75+ series)2025 Insurance * Guarantor: Hector Newton AAccount TypeRelation to PatientDate of PhoneBilling AddressPersonal/UzrzieOqwn1950 [address] [address] [place] [address] Care Teams Team MemberRelationshipSpecialtyStart DateEnd Familia Stanley MD PCP - GeneralFamily Nhwwyweh58/9/13 Camilo Lord MD [address] [id number] Primary Staff PhysicianCardiology08/11/18
--- OUTSIDE RECORDS SUMMARY | 2025-03-29 08:00 | XMS_ITS | Clinical Summary ---
Author Organization [facility] Address [address] [place] [address] Care Team Providers Care Hand Picker Name Role Phone Unavailable Primary Care Provider Unavailabl e Social History Tobacco UseTypesPacks/DayYears UsedDateSmoking Tobacco: Never Assessed CommentsUnknownSex and Gender InformationValueDate RecordedSex Assigned at Not on fileLegal GooDiqnwl92/15/2023 7:23 PM EDTGender IdentityNot on fileSexual OrientationNot on file Last Filed Vital Signs Vital SignReadingTime TakenCommentsBlood Bnnpdzrb806/8202 12:00 PM EST Pulse--Temperature--Respiratory Rate--Oxygen Saturation--Inhaled Oxygen Concentration--Ohclub98.6 kg (180 lb)11/07/2021 12:00 PM KGNFxxxwo005.1 cm (5' 5 )11/07/2021 12:00 PM EDTBody Mass Index29.95011/07/2021 12:00 PM EDT Plan of Treatment Not on file Insurance * Guarantor: Kay Newton AAccount TypeRelation to PatientDate of PhoneBilling AddressPersonal/QvbntfEfyd1950 [facility] [address]
== END 2025-03-29 07:57 | disposition home or self-care (01) ==
LOC: US 07:56
PROVIDERS: PCP Family Medicine; Visit Provider Family Medicine
DX: N39.0 Urinary tract infection, site not specified (principal)
CPT/HCPCS: 76770

== ENCOUNTER 2025-05-02 10:48 | Outpatient (OUT) | payer MEDICARE, OTHER, SELFPAY ==
--- OUTSIDE RECORDS SUMMARY | 2025-05-02 10:59 | XMS_ITS | CCD ---
Author Organization [facility] Care Team Providers Care K [employer] Police Officer Name Role Phone CAMILO LANTIGUA Unavailable Unavailab ZENY Guzmán Unavailable Unavailable Zeny Stanley Unavailable Unavailable Unavailable Zeny Stanley Primary Care Physician [phone] Ciro, Dr. Abdullahi Referring Unavaila ezio Tanner, [...] Unavailable REQUEST, NONE LISTED Primary Care Unavaila ARY Sheriff Consulting Unavailable CRISTIAN ROBERTO Attending Unavailable [...] Unavailable Zeny Stanley MD Primary Care Provider Huma Shannon Admitting Unavailable Huma Shannon Attending Unavailable Huma Shannon Referring Unavailable Federico FRANCIS Attending Unavailable Zeny Stanley Referring Unavailable MD Zeny Stanley Primary Care Provider [phone] MD Zeny Stanley Attending Provider MD Bradly Tanner Referring Provider Neptali Islas Attending Unavailable Neptali Islas Admitting Unavailable Ananth Valentine V. Primary Care Unavailable Neptali Islas Attending Unavailable Neptali Islas Admitting Unavailable Ananth Valentine V. Primary Care Unavailable Ananth Valentine V. Primary Care Unavailable Neptali Islas Attending Unavailable Neptali Islas Admitting Unavailable Ananth Valenitne V. Primary Care Unavailable Ananth Valentine V. Admitting Unavailable Ananth Valentine V. Attending Unavailable Ananth Valentine V. Primary Care Unavailable Ananth Valentine V. Attending Unavailable Ananth Valentine V. Admitting Unavailable Dennis, Ananth Sebastian Primary Care Unavailable Ananth Valentine V. Admitting Unavailable Ananth Valentine V. Attending Unavailable Neptali Islas Attending Unavailable West, Ananth Sebastian Primary Care Unavailable Zieber, Neptali R. Admitting Unavailable Neptali Islas Attending Unavailable Neptali Islas Admitting Unavailable Ananth Valentine V. Primary Care Unavailable Ananth Valentine V. Primary Care Unavailable Ananth Valentine V. Admitting Unavailable Ananth Valentine V. Attending Unavailable Neptali Islas Attending Unavailable Neptali Islas Admitting Unavailable Ananth Valentine V. Primary Care Unavailable Lucía AUGUSTINE, Manolo Dan Attending Unavailable Zeny Stanley MD Primary Care Provider Zeny Stanley MD Attending Provider [phone] Bradly Tanner MD Attending Provider Zeny Stanley MD Primary Care Provider [phone] BRADLY TANNER Attending Unavailable BRADLY TANNER Referring Unavailable ZENY STANLEY Primary Care Unavailable BRADLY TANNER Attending Unavailable BRADLY TANNER Referring Unavailable ZENY STANLEY Primary Care Unavailable Jam Stanleylas Lakhwinder Admitting Unavailable Bethany Zeny Lakhwinder Primary Care Unavailable Zeny Stanley Attending Unavailable Zeny Stanley Primary Care Unavailable Zeny Stanley Attending Unavailable Zeny Stanley M Admitting Unavailable Bethany Zeny M Primary Care Unavailable Ciro, Robynf Admitting Unavailable Robyn Tannerf Attending Unavailable Tressa Haro Attending Unavailable Zeny Stanley Referring Unavailable Huma Shannon Admitting Unavailable Huma Shannon Attending Unavailable Huma Shannon Referring Unavailable Medications Current Medications MedicationDrug Class(es)DatesSig (Normalized)Sig (Original)alendronic acid 70 mg oral tablet (9 sources)BisphosphonateStart: 34-67-7896srgk 1 tablet by mouth every week Fosamax 70 mg oral tablet 70 mg = 1 tab(s), Oral, qWeek, Refills(s) 0, Prophylaxis Start Date: 06/16/18 Status: Ordered Repeat number: 1 End: 94-77-3351yepzmenxiup (Fosamax) 70 mg tablet Take 1 tablet (70 mg) by mouth every 7 days. 03/19/2024 Discontinued (Med List Cleanup)ALPRAZolam 0.25 mg oral tablet (9 sources)BenzodiazepineStart: 95-70-7352btxw 1 tablet by mouth three times daily as needed for anxietyalprazolam 0.25 mg Tab 0.25 mg = 1 tab(s), Oral, TID, PRN as needed for anxiety, Refills(s) 0 StartDate: 05/09/23 Status: Ordered Repeat number: 1amitriptyline hydrochloride 75 mg oral tablet (10 sources)Tricyclic AntidepressantStart: 07-96-1185urxc 75 mg by mouth once daily at bedtimeamitriptyline 75 mg, Oral, Once a day (at bedtime), Refills(s) 0, Anxiety Start Date: 06/17/18 Status: Ordered Repeat number: 1aspirin 81 mg delayed release oral tablet (4 sources)Platelet Aggregation Inhibitor, Nonsteroidal Anti-inflammatory Drug Start: 12-96-5862ourq 1 tablet by mouth once dailyaspirin 81 mg Oral EC Tab 81 mg = 1 tab(s), Oral, Daily, Refills(s) 0 Start Date: 05/20/23 Status: Ordered Repeat number: 1Start: 87-14-0569raoi 81 mg by mouth once dailyaspirin 81 mg, Oral, Daily, Refills(s) 0, Blood Thinner Start Date: 06/16/18 Status: Ordered Calcium (1 source)Phosphate Binder, CalciumStart: 14-67-6110rlai 1250 mg by mouth once dailycalcium calcium, 1,250 mg, Oral, Daily Start Date: 06/16/18 Status: Ordered calcium citrate 950 mg oral tablet (1 source)Start: 75-05-3722tzss 1 mg by mouth twice dailycalcium (as calcium citrate) 200 mg oral tablet mg tab(s), Oral, BID, Refills(s) 0 Start Date: Status: OrderedEnvive oral capsule (4 sources)Start: 24-63-4416yzxe 8 capsules by mouth onceEnvive oral capsule See Instructions, 8 cap(s), Refill(s) 0, samples given to patient (Rx), Per kingston garcia's instructions. Start Date: 07/24/21 Status: Ordered Quantity: 8.0 Unit: cap(s) Repeat number: 1Start: 49-43-0966luba 8 capsules by mouth onceEnvive oral capsule See Instructions, 8 cap(s), Refill(s) 0, samples given to patient (Rx), Per physician's instructions. Start Date: 07/24/21 Status: Orderedlisinopril 40 mg oral tablet (11 sources)Angiotensin Converting Enzyme InhibitorStart: 20-83-8434cxze 1 tablet by mouth once dailylisinopril 40 mg Tab 40 mg = 1 tab(s), Oral, Daily, Refills(s) 0 Start Date: 05/09/23 Status: Ordered Repeat number: 1Start: 11-16-2021 End: 87-01-8977arcv 1 tablet by mouth once dailylisinopril 20 mg tablet Take 1 tablet (20 mg) by mouth once daily. 11/16/2021 03/19/2024 Discontinued (Med List Cleanup)Start: 38-46-5146wknw 5 mg by mouth once dailylisinopril 5 mg, Oral, Daily, Refills(s) 0, High blood pressure Start Date: 06/17/18 Status: Orderedtake 1 tablet by mouth once dailyLisinopril 10 MG Oral Tablet TAKE 1 TABLET DAILY DIRECTED. Quantity: 0 Refills: 0 Ordered: 23-Feb-2021 DO ActiveMAGNESIUM GLUCONATE (1 source)Start: 73-50-1200iywc 1 mg by mouth twice dailyMag-G mg, Oral, BID, Refills(s) 0 Start Date: 10/14/19 Status: Orderedmagnesium oxide 400 mg oral tablet (7 sources)Start: 52-46-1686evft 2 tablets by mouth once dailymagnesium oxide (Mag-Ox) 400 mg (241.3 mg magnesium) tablet Indications: Paroxysmal atrial tachycardia , Premature ventricular contractions TAKE 2 TABLETS BY MOUTH EVERY DAY 180 tablet 3 04/29/2024 ActiveStart: 68-52-2362ihax 2 tablets by mouth once dailymagnesium oxide (Mag-Ox) 400 mg (241.3 mg magnesium) tablet Indications: Paroxysmal atrial tachycardia (CMS-HCC) , Premature ventricular contractions TAKE 2 TABLETS BY MOUTH EVERY DAY 180 tablet 3 04/14/2023 ActiveStart: 87-05-3390btyq 2 tablets by mouth once dailymagnesium oxide (Mag-Ox) 400 mg (241.3 mg magnesium) tablet Indications: Paroxysmal atrial tachycardia , Premature ventricular contractions Take 2 tablets (800 mg) by mouth once daily. 180 tablet 3 02/28/2023 Active End: 17-44-6677migt 2 tablets by mouth once dailymagnesium oxide (Mag-Ox) 400 mg (241.3 mg magnesium) tablet Take 2 tablets (800 mg) by mouth once daily. 0 02/28/2023 Discontinued (Reorder)take 2 tablets by mouth once dailyMagnesium Oxide 400 MG Oral Tablet TAKE 2 TABLET Daily Quantity: 180 Refills: 3 Ordered: 5-Ieb-1921EwgmxamsueBradly Tanner MD Tzquqa68 hr metoprolol succinate 50 mg extended release oral tablet (13 sources)beta-Adrenergic BlockerStart: 05-28-2024 End: 87-13-7549avkf 1 tablet by mouth twice dailymetoprolol succinate XL (Toprol-XL) 50 mg 24 hr tablet Indications: Palpitation , Essential (primary) hypertension Take 1 tablet (50 mg) by mouth 2 times a day. 180 tablet 3 03/04/2025 03/04/2026 ActiveStart: 84-81-5391kcgb 1 tablet by mouth twice daily Metoprolol tartrate 50 mg Tab 50 mg = 1 tab(s), Oral, BID, Refills(s) 0 Start Date: 05/09/23 Status: Ordered Repeat number: 1Start: 59-33-7431cuff 2 tablets by mouth once dailymetoprolol succinate XL (Toprol-XL) 50 mg 24 hr tablet Indications: Essential (primary) hypertension TAKE 2 TABLETS BY MOUTH EVERY DAY 180 tablet 3 04/01/2023 ActiveStart: 11-08-9245pbam 2 tablets by mouth once dailymetoprolol succinate XL (Toprol-XL) 50 mg 24 hr tablet Take 2 tablets (100 mg) by mouth once daily.0 04/10/2021 ActiveStart: 67-77-1463crws 2 tablets by mouth once dailyMetoprolol Succinate [...] Pwdr for Recon 249 gram (4 sources)Start: 26-75-1958ZxjfZeu 3350 Oral Pwdr for Recon 249 gram 17 gram, Oral, Every other day, # 255 gram, Refills(s) 11, [id number] 165.1, cm, 10/14/19 13:03:00 EDT, Height/Length Measured, 83.7, kg, 10/14/19 13:03:00 EDT, Weight Measured Start Date: 10/14/19 Status: Ordered Quantity: 255.0 Unit: g Repeat number: 12Start: 27-97-2392EuiyNsr 3350 Oral Pwdr for Recon 249 gram 17 gram, Oral, Every other day, # 255 gram, Refills(s) 11, [id number] 165.1, cm, 10/14/19 13:03:00 EDT, Height/Length Measured, 83.7, kg, 10/14/19 13:03:00 EDT, Weight Measured Start Date: 10/14/19 Status: OrderedMulti Vitamin+ (4 sources)Start: 04-00-4812wawj 1 tablet by mouth once dailyMulti Vitamin+ 1 tab, Oral, Daily, Refill(s) 0, Prophylaxis Start Date: 06/16/18 Status: Ordered Repeat number: 1Start: 28-77-2896qmum 1 tablet by mouth once dailyMulti Vitamin+ 1 tab, Oral, Daily, Refill(s) 0, Prophylaxis Start Date: 06/16/18 Status: Ordered simvastatin 20 mg oral tablet (10 sources)HMG-CoA Reductase InhibitorStart: 99-43-5216jncg 20 mg by mouth once daily at bedtimesimvastatin 20 mg, Oral, Once a day (at bedtime), Refills(s) 0, High cholesterol Start Date: 06/17/18 Status: Ordered Repeat number: 1 spironolactone 25 mg oral tablet (11 sources)Aldosterone AntagonistStart: 05-09-2023 End: 46-17-7960gxlb 1 tablet by mouth once dailyspironolactone (Aldactone) 25 mg tablet Indications: Primary hypertension Take 1 tablet (25 mg) by mouth once daily. 90 tablet 3 03/04/2025 03/04/2026 ActiveStart: 72-56-6343rygo 1 tablet by mouth once dailyspironolactone (Aldactone) 25 mg tablet Indications: Primary hypertension Take 1 tablet (25 mg) by mouth once daily. 90 tablet 3 02/28/2023 Active End: 42-47-0099lhce 1 tablet by mouth once dailyspironolactone (Aldactone) 25 mg tablet Take 1 tablet (25 mg) by mouth once daily. 0 02/28/2023 Discontinued (Reorder)Vitamin D (1 source)Start: 70-88-2188Nkppwii D Oral, Refills(s) 0 Start Date: 10/14/19 Status: OrderedVitamin E (1 source)Start: 33-68-3191zqlalcp E 100 International_Unit, Oral, Daily, Refills(s) 0, Prophylaxis Start Date: 06/16/18 Status: Ordered Problems Active Problems Problem ClassificationProblemDateDocumented DateEpisodic/ChronicCardiac dysrhythmias (20 sources)Ventricular premature beats; Translations: [Other premature beats] Onset: 832950-78-6909VvzhzdfFsuxstk dysrhythmias (13 sources)Palpitations; Translations: [Palpitations]Onset: 02-09-2022 73-14-5038ElfrwocmGmmpmjye (4 sources)Bilateral -14-3222WfpgpgcNbhytqnpq of lipid metabolism (18 sources)Hyperlipidemia; Translations: [Other and unspecified hyperlipidemia] Onset: 74-86-0077AviudaqQvakcrtpl hypertension (16 sources)Hypertensive disorder; Translations: [Unspecified essential hypertension]Onset: 847557-28-3341LiditzxLwchbnoy of lower limb (11 sources)Stress fracture, left foot, subsequent encounter for fracture with nonunion; Translations: [Displaced fracture of fifth metatarsal bone, left foot, subsequent encounter for fracture with routine healing]Onset: 12-04-2021 EpisodicOsteoarthritis (5 sources)Arthritis; Translations: [Unilateral primary osteoarthritis, right knee]Onset: 433482-94-3288PleizwrSazvbralldvr (3 sources)Psswwtlohzwg64-93-6717YiwwhzrBprtm aftercare (1 source)Encounter for follow-up examination after completed treatment for conditions other than malignant neoplasm; Translations: [Encounter for follow-up examination after completed treatment for conditionsother than malignant neoplasm]Onset: 43-55-5921QhyqtdbrTdbtk gastrointestinal disorders (4 sources)Dtnthrlqxsal97-78-7563JssxuejuKxpgs nervous system disorders (1 source)Other chronic pain; Translations: [OTHER CHRONIC PAIN]Onset: 32-57-8035MhrfiriZheeg non-traumatic joint disorders (4 sources)Pain in right knee; Translations: [PAIN IN RIGHT KNEE]Onset: 11-81-6571CcocxazdCwfhq nutritional; endocrine; and metabolic disorders (8 sources)Body mass index 30+ - obesity; Translations: [Body Mass Index 31.0- 31.9, adult]Onset: 043811-23-2563KfcgzedIxvmv nutritional; endocrine; and metabolic disorders (5 sources)Obesity; Translations: [Obesity, unspecified]30-70-0707RkwozatEohyr nutritional; endocrine; and metabolic disorders (2 sources)Body mass index (BMI) 32.0-32.9, adult; Translations: [Body mass index (BMI) 32.0-32.9, adult]Onset: 95-58-7563ArntwyxCzipb skin disorders (1 source)Scar conditions and fibrosis of skin; Translations: [Scar conditions and fibrosis of skin]Onset: 82-21-2892TqdmioztCwooe skin disorders (3 sources)Endq71-84-2291WjziqsflTmgawlmop; thrombophlebitis and thromboembolism (1 source)Phlebitis and thrombophlebitis of superficial vessels of right lower extremity; Translations: [Phlebitis and thrombophlebitis of superficial vessels of right lower extremity]Onset: 46-90-4200AmejojnhJvyoymny codes; unclassified (2 sources)Never smoked tobacco; Translations: [Other specified health status] Onset: 245311-87-7496QbidbahkMdmxvwuw codes; unclassified (2 sources)Other specified health status; Translations: [Other specified health status]Onset: 43-29-0752QkfirfrhEqcjeorbzwpm (4 sources)Patient encounter oumgnn34-14-1983Wtmruqcuhmee (1 source)Other supraventricular tachycardia (HHS-HCC); Translations: [Other supraventricular tachycardia (HHS-HCC)]Onset: 00-33-8985Kvyavahcqosl (1 source)Other supraventricular tachycardia; Translations: [Other supraventricular tachycardia]Onset: 78-13-1057Fpimeace veins of lower extremity (4 sources)Venous varices; Translations: [Varicose veins of bilateral lower extremities with pain]Onset: 060636-89-6630QmcutnzxOpdxy infection (8 sources)Measles; Translations: [Mumps]40-36-8392Bpldqevh Past or Other Problems Problem ClassificationProblemDateDocumented DateEpisodic/ChronicOther connective tissue disease (4 sources)Pain in left foot; Translations: [PAIN IN LEFT FOOT]Onset: 01-22-2022 EpisodicOther nutritional; endocrine; and metabolic disorders (4 sources)Obese class I; Translations: [Obesity, unspecified]Onset: 01-22-2023 Resolved: 153369-67-1518ZgejmmuXiuuljndqahe (2 sources)Never smoked tobacco; Translations: [Never smoker]Unclassified (3 sources)Onset: 02-28-2023 Resolved: 618824-51-1498Lcoiddlidlre (1 source)Other supraventricular tachycardia (HHS-HCC); Translations: [Other supraventricular tachycardia (HHS-HCC)]Onset: 27-31-2269Itydjaiizwko (1 source)Other supraventricular tachycardia; Translations: [Other supraventricular tachycardia]Onset: 03-19-2024 Results Test NameValueInterpretationReference RangeFacilityAmbulatory Visit Summaryon 90-14-3560Kompwbpszl Visit SummaryAmbulatory Visit Summary KAY CHAVEZ :1950 Visit Date:04/06/2025 Ambulatory Visit Instructions Your Diagnosis Frequent UTI Microscopic hematuria Your Care Team Attending Physician - Tressa Haro PA-C Primary Care Physician - Zeny Stanley MD Referring Physician - Zeny Stanley MD This Is Your Medications List alendronate (Fosamax 70 mg oral tablet) alprazolam [...] of lesion of skin (06/05/2016), Cataract extraction, Colonoscopy, Dilation and curettage, Hysterectomy, Stripping of vein, WANDY BSO - Total abdominal hysterectomy and bilateral salpingo-oophorectomy, Tonsillectomy. Discharge Vitals Heart Rate (Peripheral) 70 Respiratory Rate 18 Blood Pressure 138/82 Height 166 cm Height 65 in Weight 88.5 kg Weight 195.109 lb BMI 32.12 Medications What How Much When Instructions Unchanged alendronate (Fosamax 70 mg oral tablet) 1 Tablets By Mouth Every week Unchanged alprazolam (alprazolam 0.25 mg Tab) 1 Tablets By Mouth 3 times a day as needed for as needed for anxiety Unchanged amitriptyline 75 Milligram By Mouth Once a day (at bedtime) Unchanged aspirin (aspirin 81 mg Oral EC Tab) 1 Tablets By Mouth Every day Unchanged bifidobacterium-lactobacillus (Envive oral capsule) See instructions Per physician's instructions. Unchanged lisinopril (lisinopril 40 mg Tab) 1 Tablets By Mouth Every day Unchanged metoprolol (Metoprolol tartrate 50 mg Tab) 1 Tablets By Mouth 2 times a day Unchanged multivitamin (Multi Vitamin+) 1 tab By Mouth Every day Unchanged polyethylene glycol 3350 (MiraLax 3350 Oral Pwdr for Recon 249 gram) 17 Gram By Mouth Every other day Unchanged simvastatin 20 Milligram By Mouth Once a day (at bedtime) Unchanged spironolactone (spironolactone 25 mg Tab) 1 Tablets By Mouth Every day Allergies No Known Allergies Problems Ongoing - Any problem that you are currently receiving treatment for. Arthritis BMI 32.0-32.9,adult Cataracts, bilateral Cicatrix Colon cancer screening Constipation Frequent UTI Hypercholesterolemia Hypertension Microscopic hematuria Obesity Osteoporosis Recurrent UTI Supraventricular tachycardia Venous varices Historical - Any problem that you are no longer receiving treatment for. Measles Mumps Patient Survey You may receive a survey via text or e-mail asking about your office visit. Please share your experience with us by completing your survey. We appreciate your feedback and thank you for choosing us for your care. Patient Portal You may access all of your results and other medical record information on our secure patient portal. If you are not signed up for this yet, please contact Health Information Management at [phone] to get signed up today. Language Information Language assistance services are available as needed. Alyssia [facility] InstituteUrology Office/Clinic Noteon 05-10-2066Ylhveyk Office/Clinic NoteUrology Office/Clinic Note Chief Complaint New Pt. 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 Pt states prior to both of the past UTI, she has gotten every so often in the past Pt states her symptoms are chills, burning, and only produce a small about of urine. Pt had 2 urine culture form [facility], pt had a ANAMARIA after the second UTI this month at [facility] History of Present Illness I have reviewed and verified the staff HPI to be accurate for this encounter. Review of Systems PHQ Score Initial Depression Screen Score: 0 SCORE no fever, chills, malaise, myalgia. no abdominal pain, nausea, vomiting. Physical Exam Vitals & Measurements HR: 70(Peripheral) RR: 18 BP: 138/82 HT: 166 cm HT: 65 in WT: 88.5 kg WT: 195.109 lb BMI: 32.12 General: Well developed, well nourished, in no acute distress. 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 Frequent UTI (N39.0: Urinary tract infection, site not specified) UCx 02/01/25 - 75k mixed skin contam. Micro UA RBC 0-2. Tx'd w/ Cefdinir x 10 days UCx 03/18/25 - no growth. Micro UA 03/18/25 - WBC 10-20, 5-10 RBC, trace bacteria. Tx'd w/ Bactrim DS x 10 days RBUS 03/29/25 [facility] - PVR 3 mL. Urinary bladder wall is borderline thickened. UA today w/ small leuks only PVR 51 ml most recent UTI - 03/18/25, pt had UTI sx, tx'd w/ Bactrim x 10 days, sx improved. UCX negative. 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 Treated with antibiotics both times and symptoms improved. Reviewed prior urine cultures with her, which were negative for infection. Discussed possibility of bacteria being present, but not found on standard urine culture. She denies UTI symptoms today or gross hematuria. Admits to constipation. Discussed bladder/bowel connection. Not wearing pads or bothered by urinary sx otherwise. Today we discussed the following methods to decrease frequency of UTIs: 1) Increase fluids. Aim for at least 2L daily. General bladder health reviewed and pt education provided. Bladder irritant list provided for pt to review. 2) Ensure bladder emptying fully. PVR today 51 ml. Discussed double void maneuvers (encouraged to lean forward, apply gentle pressure on the bladder, and standing then sitting again). 3) We discussed that there is evidence that herbal supplements may help - cranberry, probiotics, and d-mannose. 4) R/o kidney stones as contributing factor to UTIs. ANAMARIA 03/29/25 negative for stones. In the future, will consider starting topical estrogen cream if she began to have increase in urinary tract infections. She denies hx of breast CA or hx of clots. Pt advised to contact our office w all future UTI sx so we can monitor urine cx results, treat appropriately (may require extended course abx), and monitor frequency of infections. Pt advised if develops fever, severe flank pain, vomiting - needs to go to ER. -Start OTC herbal supplements. Handout provided. -Increase water intake, limit bladder irritants -Bowel regimen w/ fiber, stool softeners -Proper hygiene habits -F/up pending #2 Ordered: 98611 Measure Post Void residual urine and/or bladder capacity by US- non-imaging Body Mass Index (BMI) documented 3008F Current tobacco non-user 1036F Depression Screening Negative 3352F Influenza immunization status assessed 1030F Medication list documented in medical record 1159F Most recent diastolic blood pressure <80 mm Hg 3078F Patient screen for fall risk: no falls in last year or 1 fall with no injury in last year 1101F Review of all meds by a prescribing practitioner or clinical pharmacist documented in EHR 1160F Systolic BP 130-139 mm Hg (Most Recent) 3075F 2. Microscopic hematuria (R31.29: Other microscopic hematuria) Micro UA 03/18/25 - 5-10 RBC, WBC 10-20, trace bacteria UCx 03/18/25 - no growth to date RBUS 03/29/25 [facility] - Urinary bladder wall is borderline thickened. UA today negative for blood Pt w/ confirmed microscopic hematuria in absence of infection/contamination. She denies gross hematuria. Never smoker. No occupational exposures. Family hx breast CA in mother. Discussed potential etiologies and implications of hematuria with patient. These include: trauma, Tumor, infection/inflammation, stones, period/menses (pseudohematuria), obstructive uropathy ( (more content not included)...Normal [facility] HospitalComment on above:Result Comment: Electronically Signed By: Estrellita ALMEIDA, Tressa\.br\Date and Time Signed: 04/06/25 10:57 ESTUrine Cultureon 45-66-0970Lkfpvcjt identified Cx Nom (U)No Growth 2 Days PERFORMED BY: [place] [address] PATHOLOGIST SPINDLE TESTER NGOZI DONALD M.D.NormalAdventhealth Wesley Chapel Physician GroupComment on above: Performed By: #### CUU #### [facility] [address] [place] [address] USAAlanine aminotransferase [Enzymatic activity/volume] in Serum or PlasmaOrdered By: Bradly Tanner on 06-23-9011WTD [Catalytic activity/Vol]30 U/LNormal7-52Ber[facility] HospitalComment on above: Performed By: #### ALT, BMP, AST, LIPID #### [facility] [address] [place] [address] USAAspartate aminotransferase [Enzymatic activity/volume] in Serum or PlasmaOrdered By: Bradly Tanner on 27-89-8897SIY [Catalytic activity/Vol]28 U/MBlrnhe75-47KrjkvaxkhBerger HospitalComment on above: Performed By: #### ALT, BMP, AST, LIPID #### [facility] [address] [place] [id number] USABasic Metabolic Panelon 31-96-7475POE/1.73 sq M.predicted MDRD (S/P/Bld) [Vol rate/Area]mL/min/{1.73_m2}NormalThe [facility] Physician GroupComment on above:Performed By: #### ALT, BMP, AST, LIPID #### [facility] [address] [place] [address] USACalcium [Mass/volume] in Serum or PlasmaOrdered By: Bradly Tanner on 21-63-2231Sabkixb [Mass/Vol]9.6 mg/dLNormal8.6-10.3 Berger HospitalComment on above:Performed By: #### ALT, BMP, AST, LIPID #### [facility] [address] [place] [address] USACarbon dioxide, total [Moles/volume] in Serum or Plasma Ordered By: Bradly Tanner on 43-11-2763VM6 [Moles/Vol]30.4 mmol/LNormal 21.0-31.0Berger HospitalComment on above:Performed By: #### ALT, BMP, AST, LIPID #### [facility] [address] [place] [id number] USAChloride [Moles/volume] in Serum or PlasmaOrdered By: Bradly Tanner on 53-08-5499Sqrxdfdp [Moles/Vol]106 mmol/JHfdvuc76-318 Berger HospitalComment on above:Performed By: #### ALT, BMP, AST, LIPID #### [facility] [address] [place] [id number] USACholesterol [Mass/volume] in Serum or PlasmaOrdered By: Bradly Tanner on 93-72-7423Orlrspwcven [Mass/Vol]161 mg/xHQolubo084-104 [facility] CenterComment on above:Chol less than 200 mg/dl low riskChol 201-239 mg/dl borderline riskChol 240 mg/dl and greater high riskResult Comment: Chol less than 200 mg/dl low risk Chol 201-239 mg/dl borderline risk Chol 240 mg/dl and greater high riskPerformed By: #### ALT, BMP, AST, LIPID #### [facility] [address] [place] [address] USACholesterol in HDL [Mass/volume] in Serum or PlasmaOrdered By: Bradly Tanner on 69-30-8577Gkwnpofgmje in HDL [Mass/Vol]60 mg/dLNormal 23-Berger HospitalComment on above:HDL CHOL ATP-III CLASSIFICATION Cardiovascular RiskHDL > or equal to 60 mg/dL LOWHDL < 40 mg/dL HIGHResult Comment: HDL CHOL ATP-III CLASSIFICATION Cardiovascular Risk HDL > or equal to 60 mg/dL LOW HDL < 40 mg/dL HIGHPerformed By: #### ALT, BMP, AST, LIPID #### [facility] [address] [place] [address] USACholesterol in LDL Calc [Mass/Vol]Ordered By: Bradly Tanner on 72-66-9125Dagjropoizd in LDL [Mass/Vol]78 mg/dL0-100Berger HospitalComment on above:LDL ATP III CLASSIFICATIONLDL less than 100 mg/dL OptimalLDL 100-129 mg/dL Near or above mhswmckIHD286-930 mg/dL Borderline highLDL 160-189 mg/dL HighLDL greater than 189 mg/dL Very high Cholesterol in VLDL Calc [Mass/Vol]Ordered By: Bradly Tanner on 02-22-2025 Cholesterol in VLDL [Mass/Vol]23 mg/dLBerger Hospital Creatinine [Mass/volume] in Serum or PlasmaOrdered By: Bradly Tanner on 85-94-9636Ieffmsiddp [Mass/Vol]0.75 mg/dLNormal0.60-1.20Berger HospitalComment on above:Performed By: #### ALT, BMP, AST, LIPID #### [facility] [address] [place] [address] USAGlomerular filtration rate [Volume Rate/Area] in Serum, Plasma or Blood by CreatinineOrdered By: Bradly Tanner on 02-22-2025 Glomerular filtration rate [Volume Rate/Area] in Serum, Plasma or Blood by Creatinine> 60.0 mL/MinBerger HospitalGlucose [Mass/volume] in Serum or PlasmaOrdered By: Bradly Tanner on 66-51-9448Apvcirc [Mass/Vol]89 mg/zQFjrdur97-053DnnefvxmlBerger HospitalComment on above:ADA recommended reference rangeRandom Glucose [...] By: #### ALT, BMP, AST, LIPID #### [facility] [address] [place] [id number] USALipid Panelon 17-62-3307YWI Cholesterol,Ocfrzdwgeo68 mg/dL Normal0-100The [facility] Physician GroupComment on above:Result Comment: LDL ATP III CLASSIFICATION LDL less than 100 mg/dL Optimal LDL 100-129 mg/dL Near or above optimal LDL 130-159 mg/dL Borderline high LDL 160-189 mg/dL High LDL greater than 189 mg/dL Very highPerformed By: #### ALT, BMP, AST, LIPID #### [facility] [address] [place] [address] USATriglyceride w/Ieqldb688 mg/dLNormal0-149The [facility] Physician GroupComment on above:Result Comment: TRIG ATP III CLASSIFICATION TRIG less than 150 mg/dL Normal TRIG 150-199 mg/dL Borderline high TRIG 200-500 mg/dL High TRIG greater than 500 mg/dL Very high Standard traceable to the Center for Disease Conrtrol and Prevention (CDC) test method.Performed By: #### ALT, BMP, AST, LIPID #### [facility] [address] [place] [id number] USAVLDL HTGNBYYYFSJ71 mg/dLNormMarietta Osteopathic Clinice [facility]lands Physician GroupComment on above:Performed By: #### ALT, BMP, AST, LIPID #### [facility] [address] [place] [address] USANo Panel InformationOrdered By: Bradly Tanner on 50-03-9227Dxqcfsyc Creatinine Clearance (ChemN/J.W. Ruby Memorial HospitalPotassium [Moles/volume] in Serum or PlasmaOrdered By: Bradly Tanner on 69-09-1714Jikasvvxe [Moles/Vol]4.6 mmol/LNormal3.5-5.1FGreen Cross HospitalComment on above:Performed By: #### ALT, BMP, AST, LIPID #### [place] [address] USASerum or plasma anion gap determinationOrdered By: Bradly Tanner on 84-12-4531Mcorr gap [Moles/Vol]9.2 mmol/LNormal6.0-15.0Berger HospitalComment on above:Performed By: #### ALT, BMP, AST, LIPID #### [facility] [address] [place] [address] USASerum or plasma total cholesterol/high density lipoprotein (HDL) cholesterol mass ratOrdered By: Bradly Tanner on 02-22-2025 Cholesterol.total/Cholesterol in HDL [Mass ratio]2.7 {ratio}Normal<5.0Berger HospitalComment on above:Result Comment: PERFORMED BY: [place] [address] PATHOLOGIST SPINDLE TESTER NGOZI DONALD M.D.Performed By: #### ALT, BMP, AST, LIPID #### [facility] [address] [place] [address] USASodium [Moles/volume] in Serum or PlasmaOrdered By: Bradly Tanner on 26-50-1863Dekzjx [Moles/Vol]141 mmol/TJllkcj812-376 Berger HospitalComment on above:Performed By: #### ALT, BMP, AST, LIPID #### [facility] [address] [place] [id number] USATriglyceride [Mass/volume] in Serum or PlasmaOrdered By: Bradly Tanner on 15-94-6418Iqxsubxnetik [Mass/Vol]116 mg/dL0-149Berger HospitalComment on above:TRIG ATP III CLASSIFICATIONTRIG less than 150 mg/dL NormalTRIG 150-199 mg/dL Borderline highTRIG 200-500 mg/dL High TRIG greater than 500 mg/dL Very highStandard traceable to the Center for Disease Conrtrol and Prevention (CDC) test method.Urea nitrogen [Mass/volume] in Serum or PlasmaOrdered By: Bradly Tanner on 61-70-5983Hfpg nitrogen [Mass/Vol]17 mg/dLNormal7-25Berger HospitalComment on above: Performed By: #### ALT, BMP, AST, LIPID #### [facility] [address] [place] [address] USAUrine Cultureon 97-73-8846Mpblxkgs identified Cx Nom (U) 75,000 colonies/ml mixed bacterial skin contaminants 2 Days PERFORMED BY: [place] [address] PATHOLOGIST SPINDLE TESTER NGOZI DONALD M.D.NormalAdventhealth Wesley Chapel Physician GroupComment on above: Performed By: #### CUU #### [facility] [address] [place] [address] USAUrine cultureOrdered By: Zeny Stanley on 33-55-4791Hernghtd identified Cx Nom (U)2 DaysBerger HospitalCoding Summaryon 24-55-1764Wkfdgx SummaryHTMLBase 64 RtmvixkwCHa7kOx+PGhlYWQ+VS2ASXQdE41bxIDvtU3jT7ETOHiGJekpUUDUUMlFMxMjjeMbGM1fzHBa ZXJu [file] cHN (more content not included)...NormalMagruder HospitalCoding SummaryHTMLBase 64 MguqvotgEJf0zQd+PGhlYWQ+FY1TPCWhT00rqKTndZ9uK4LJORtZZgifCPQRVGvQMqJepcXdOO1pgAUl ZXJu [file] N (more content not included)...[facility] HospitalUS Injection Spider Veinson 59-84-9583PG Injection Spider VeinsEXAMINATION: US Injection Spider Veins [...] Ananth Valentine MD 11/30/24 10:42 a Technologist: [facility]Patient Handouton 63-49-3207Vfzesxk HandoutRadiology Sclerotherapy, Care After After sclerotherapy, it [...] cannot use soap and water, use hand produce shipper. ? Change your bandage. ? Check the [...] safe for you. General instructions ? Take joqp-mvu-ogosngf and prescription medicines only as told by [...] provider. Document Revised: 08/15/2022 Document Reviewed: 08/15/2022 [employer] Patient Education ? 2024 [employer] HospitalUS Injection Spider Veinson 00-35-7660HU Injection Spider VeinsEXAMINATION: US Injection Spider Veins [...] Ananth Valentine MD 11/24/24 12:03 p Technologist: [facility] Summaryon 21-49-5370Txkigl Summary HTMLBase 64 EzgwbhvqANw4iIo+PGhlYWQ+JY2DZWKnI65owBJzrE6uK5DDDJeYNcwiUZODHAbNKnOiurIzZM1szKBe ZXJu [file] cHN (more content not included)...[facility] HospitalUS Injection Spider Veinson 95-68-0152JV Injection Spider VeinsEXAMINATION: US Injection Spider Veins [...] Ananth Valentine MD 11/11/24 11:48 a Technologist: [facility]on 02-96-8621Hwztxhy HandoutRadiology Sclerotherapy, Care After After sclerotherapy, it [...] cannot use soap and water, use hand produce shipper. ? Change your bandage. ? Check the [...] safe for you. General instructions ? Take agkz-pot-hbvtwom and prescription medicines only as told by [...] provider. Document Revised: 08/15/2022 Document Reviewed: 08/15/2022 [employer] Patient Education ? 2023 [employer].[facility] HospitalCoding Summaryon 52-09-9916Endjar SummaryHTMLBase 64 CriyjwoqRTt1kBg+PGhlYWQ+EF1ASIFbN57iqQAvtI5wH6SLHYsTAwmeASYEJDyBOxXwxnObPX7rrOPp ZXJu [file] cHN (more content not included)...NormalMagruder HospitalCoding SummaryHTMLBase 64 OfyedwnvOAl7iVw+PGhlYWQ+NT5AJWWdQ83qlFOfeD3yS0XRTEvKMselYVDXQWeUOdGkpoUnLV4kqFJy ZXJu [file] cHN (more content not included)...[facility] HospitalCoding Summaryon 10-99-0973Fadiib SummaryHTMLBase 64 NfequlnqZHb6qWu+PGhlYWQ+NW8TWUYlO95meJTmaX0qY2RQPOpLFaobECLUHAwAMeUpqzMuLP7paAEi ZXJu [file] cHN (more content not included)...NormalMagruder HospitalCoding SummaryHTMLBase 64 AeoxsxskGCl9jZw+PGhlYWQ+XE5SFYPbD07ngMZcwM9wO7WDXKsWEkihDTQGVTcRCgXbryKlKT4kvPNe ZXJu [file] Julianna (more content not included)...[facility] Injection Spider Veinson 09-42-7783ZB Injection Spider VeinsEXAMINATION: US Injection Spider Veins [...] [facility] LE Venous Duplex Righton 53-49-8916KR LE Venous Duplex RightEXAMINATION: US LE Venous [...] Ananth Valentine MD 10/19/24 12:56 p Technologist: [facility]Patient Handouton 69-62-3500Brfevrr HandoutRadiology Sclerotherapy, Care After After sclerotherapy, it [...] cannot use soap and water, use hand produce shipper. ? Change your bandage. ? Check the [...] safe for you. General instructions ? Take cshk-vbh-rlivydb and prescription medicines only as told by [...] provider. Document Revised: 08/15/2022 Document Reviewed: 08/15/2022 [employer] Patient Education ? 2023 [employer].[facility] HospitalCoding Summaryon 83-28-4440Gmrzpx SummaryMLBase 64 FtswfeedIAy2rWb+PGhlYWQ+VM4HDXOuT32dfQWzeH7eB0GITNiAIelnTNKNMDrNQlGoioWcXL5whLJq ZXJu [file] cHN (more content not included)...[facility] Mamm Screen w/CAD if perf and 3D Bilon 18-10-7123VA Mamm Screen w/CAD if perf and 3D [...] very important to your health. The current [employer] and National Comprehensive Cancer [...] Kenneth Zamora M.D. Transcribed by: DANIAL Technologist: AP Assessment: BI-RADS Category 2-Benign finding Recommendation: Normal interval follow-upCleveland Clinic Euclid HospitalUS LE Venous Duplex Righton 31-58-3503XX LE Venous Duplex RightEXAMINATION: US LE Venous [...] Neptali Islas MD 10/07/24 12:08 p Technologist: [facility] Summaryon 86-88-0993Bmlupx Summary HTMLBase 64 XhlsuzalEJk0iDp+PGhlYWQ+KL5XIOWjX33xgDLgkQ7lN9MIYGhSVawdBHLTPTuZLiLcgsMdFW8wbTKl ZXJu [file] cHN (more content not included)...[facility] HospitalPatient Handouton 25-62-4118Ccwkeqi HandoutRadiology Sclerotherapy, Care After After sclerotherapy, it [...] cannot use soap and water, use hand produce shipper. ? Change your bandage. ? Check the [...] safe for you. General instructions ? Take rkqg-ygz-pafvjga and prescription medicines only as told by [...] provider. Document Revised: 08/15/2022 Document Reviewed: 08/15/2022 [employer] Patient Education ? 2023 [employer] [facility] Office/Clinic Noteon 64-45-0988Fqjumw/Clinic Note [id number]#1.00OTGTIFFFort Hamilton HospitalCoding Summaryon 90-42-4058Cpcumy SummaryHTMLBase 64 CznsashvQYm1wXi+PGhlYWQ+WH4CDJPcK23xaOBaaT9iS9LBAKcDFyheTSMYXZfPOwMvowMkTW5iuIPr ZXJu [file] cHN (more content not included)...[facility] HospitalConsent Forms - Physicianon 28-65-5781Kjrazxk Forms - Physician [id number]#1.00OTGTNorwalk Memorial Hospital Patient Handouton 57-46-1913Srozwll HandoutCardiovascular Varicose Veins Varicose veins are veins [...] these instructions at home: Medicines ? Take zyfb-wru-nlsawsy and prescription medicines only as told by [...] trouble breathing. ? Y (more content not included)...NormalMartin Memorial HospitalUS Venous Insufficiency Bilaton 03-32-0849RH Venous Insufficiency BilatEXAMINATION: US Venous Insufficiency Bilat [...] Ananth Valentine MD 09/21/24 8:33 am Technologist: [facility] ClinicAlanine aminotransferase [Enzymatic activity/volume] in Serum or PlasmaOrdered By: Zeny Stanley on 65-54-5500FPZ [Catalytic activity/Vol]26 U/L7-52Berger HospitalAlbumin [Mass/volume] in Serum or Plasma by Bromocresol green (BCG) dye binding metho Ordered By: Zeny Stanley on 19-60-6996Xnbbxpr BCG dye [Mass/Vol]3.9 g/dL3.5-5.7 Berger HospitalAlkaline phosphatase [Enzymatic activity/volume] in Serum or PlasmaOrdered By: Zeny Stanley on 47-46-9629MJI [Catalytic activity/Vol]55 U/Z94-379ZprjteotkBerger HospitalAspartate aminotransferase [Enzymatic activity/volume] in Serum or PlasmaOrdered By: Zeny Stanley on 97-17-2046QVW [Catalytic activity/Vol]25 U/U82-05BwpliswqcBerger HospitalBasophils Auto (Bld) [#/Vol]Ordered By: Zeny Stanley on 73-28-3539Hjrgceihq (Bld) [#/Vol]0.0 10*3/uL0.0-0.2FGreen Cross HospitalBasophils/100 WBC Auto (Bld)Ordered By: Zeny Stanley on 03-10-2024 Basophils/100 WBC (Bld)0.5 %.Berger HospitalBilirubin.total [Mass/volume] in Serum or PlasmaOrdered By: Zeny Stanley on 12-89-6593Zjhgwciyc [Mass/Vol]0.7 mg/dL0.3-1.0Berger HospitalCalcium [Mass/volume] in Serum or PlasmaOrdered By: Zeny Stanley on 01-46-7482Hdsgndt [Mass/Vol]9.5 mg/dL8.6-10.3FGreen Cross HospitalCarbon dioxide, total [Moles/volume] in Serum or PlasmaOrdered By: Zeny Stanley on 00-14-6633FW0 [Moles/Vol]32.6 mmol/LHigh21.0-31.0Berger HospitalChloride [Moles/volume] in Serum or PlasmaOrdered By: Zeny Stanley on 88-59-7165Deoncrkc [Moles/Vol]104 mmol/M60-286KztolebjtBerger HospitalCholesterol [Mass/volume] in Serum or PlasmaOrdered By: Bradly Tanner on 03-10-2024 Cholesterol [Mass/Vol]152 mg/lX382-408WwsgepykeBerger HospitalComment on above:Chol less than 200 mg/dl low riskChol 201-239 mg/dl borderline riskChol 240 mg/dl and greater high riskCholesterol in LDL Calc [Mass/Vol]Ordered By: Bradly Tanner on 62-60-9237Guntzealbaj in LDL [Mass/Vol]72 mg/dL0-100 Berger HospitalComment on above:LDL ATP III CLASSIFICATIONLDL less than 100 mg/dL OptimalLDL 100-129 mg/dL Near or above ntdtwuqDIJ779-442 mg/dL Borderline highLDL 160-189 mg/dL HighLDL greater than 189 mg/dL Very high Cholesterol in VLDL Calc [Mass/Vol]Ordered By: Bradly Tanner on 03-10-2024 Cholesterol in VLDL [Mass/Vol]20 mg/dLBerger Hospital Creatinine [Mass/volume] in Serum or PlasmaOrdered By: Zeny Stanley on 03-10-2024 Creatinine [Mass/Vol]0.75 mg/dL0.60-1.20[facility] Eosinophils Auto (Bld) [#/Vol]Ordered By: Zeny Stanley on 60-14-4859Prcqplmrtyc (Bld) [#/Vol]0.2 10*3/uL0.0-0.45Berger HospitalEosinophils/100 WBC Auto (Bld)Ordered By: Zeny Stanley on 43-29-7891Wasnxcaxzmj/100 WBC (Bld)3.8 %.Berger HospitalErythrocyte distribution width Auto (RBC) [Ratio]Ordered By: Zeny Stanley on 09-96-5658Tsoysrkoemd distribution width (RBC) [Ratio]13.4 %11.9-15.3FGreen Cross HospitalGlobulin Calc (S) [Mass/Vol]Ordered By: Zeny Stanley on 20-56-1714Nizkrigb (S) [Mass/Vol]2.4 g/dL Berger HospitalGlucose [Mass/volume] in Serum or PlasmaOrdered By: Zeny Stanley on 82-19-0107Gnrgrzn [Mass/Vol]85 mg/hL29-039BhgtnjlqdBerger HospitalComment on above:ADA recommended reference rangeRandom Glucose Reference Range is dependent on time and content of last meal. Glucose of more than 200 mg/dL in a nonstressed, ambulatory subject supports the diagnosisof Diabetes Mellitus.Glucose mean value [Mass/volume] in Blood Estimated from glycated hemoglobinOrdered By: Zeny Stanley on 81-61-0142Thmwiwp glucose Estimated from glycated hemoglobin (Bld) [Mass/Vol]123 mg/dLBerger HospitalHematocrit Auto (Bld) [Volume fraction]Ordered By: Zeny Stanley on 22-99-8366Xqpcksxezd (Bld) [Volume fraction]41.0 %34.0-46.4FGreen Cross HospitalHemoglobin A1c percentageOrdered By: Zeny Stanley on 03-10-2024 HbA1c (Bld) [Mass fraction]5.9 %High4.3-5.6FGreen Cross Hospital Comment on above:Increased risk for diabetes: 5.7 - 6.4diabetes: >6.4glycemic control for adults with diabetes: <7.0Hemoglobin [Mass/volume] in Blood Ordered By: Zeny Stanley on 87-17-7914Bszqlhifpe (Bld) [Mass/Vol]14.0 g/dL 11.8-15.4FGreen Cross HospitalLeukocytes [#/volume] corrected for nucleated erythrocytes in Blood by Automated counOrdered By: Zeny Stanley on 76-54-1229SFB corrected for nucl RBC Auto (Bld) [#/Vol]4.5 10*3/uL3.8-11.6 Berger HospitalLymphocytes Auto (Bld) [#/Vol]Ordered By: Zeny Stanley on 62-58-7422Cfmwfogzplt (Bld) [#/Vol]1.4 10*3/uL1.00-4.8Berger HospitalLymphocytes/100 WBC Auto (Bld)Ordered By: Zeny Stanley on 45-23-0887Gohfelycdue/100 WBC (Bld)30.7 %.[facility] Auto (RBC) [Entitic mass]Ordered By: Zeny Stanley on 24-53-2326YAC (RBC) [Entitic mass]30.2 pg24.7-34.3FGreen Cross HospitalMCHC Auto (RBC) [Mass/Vol]Ordered By: Zeny Stanley on 62-18-5880PEJD (RBC) [Mass/Vol]34.2 g/dL 32.0-35.0Berger HospitalMCV Auto (RBC) [Entitic vol]Ordered By: Zeny Stanley on 69-60-9713DKV (RBC) [Entitic vol]88.2 pQ79-376EtysbbqjbBerger HospitalMonocytes Auto (Bld) [#/Vol]Ordered By: Zeny Stanley on 38-07-1712Vvniqdatf (Bld) [#/Vol]0.4 10*3/uL0.0-0.8Berger HospitalMonocytes/100 WBC Auto (Bld)Ordered By: Zeny Stanley on 03-10-2024 Monocytes/100 WBC (Bld)9.9 %.Berger HospitalNeutrophils Auto (Bld) [#/Vol]Ordered By: Zeny Stanley on 11-46-8556Veoepuvvcxy (Bld) [#/Vol]2.5 10*3/uL1.8-7.7FGreen Cross HospitalNeutrophils/100 WBC Auto (Bld) Ordered By: Zeny Stanley on 77-13-0999Uufnxjzugfo/100 WBC (Bld)55.1 %.Berger HospitalNo Panel InformationOrdered By: Zeny Stanley on 03-10-2024 Estimated GFR (CKD-EPI)> 60.0 mL/MinBerger HospitalPharmacy Creatinine Clearance (ChemN/AFGreen Cross HospitalNucleated erythrocytes [Presence] in Blood by Automated countOrdered By: Zeny Stanley on 72-52-1288Rwisjxzvf RBC Auto Ql (Bld)0.1 /100{WBC}0-0.5FGreen Cross HospitalPlatelet mean volume Auto (Bld) [Entitic vol]Ordered By: Zeny Stanley on 62-66-1695Zttxfqlz mean volume (Bld) [Entitic vol]7.6 fL6.3-10.7FGreen Cross HospitalPlatelets Auto (Bld) [#/Vol]Ordered By: Zeny Stanley on 25-84-9931Ntulozsgm (Bld) [#/Vol]214 10*3/tN573-325TmmjbdsavBerger HospitalPotassium [Moles/volume] in Serum or PlasmaOrdered By: Zeny Stanley on 29-68-9812Ygsxjcrrx [Moles/Vol]4.2 mmol/L3.5-5.1FGreen Cross HospitalProtein [Mass/volume] in Serum or PlasmaOrdered By: Zeny Stanley on 36-45-2077Yjrxraj [Mass/Vol]6.3 g/dLLow6.4-8.9[facility] RBC Auto (Bld) [#/Vol]Ordered By: Zeny Stanley on 93-17-4220QMF (Bld) [#/Vol]4.65 10*6/uL3.60-5.00[facility] Medical Centererum or plasma albumin/globulin mass ratioOrdered By: Zeny Stanley on 15-49-0605Gugjqpd/Globulin [Mass ratio]1.6 {ratio}[facility] Medical Centererum or plasma anion gap determinationOrdered By: Zeny Stanley on 84-87-2293Nqspt gap [Moles/Vol]9.6 mmol/L6.0-15.0[facility] Medical Centererum or plasma high density lipoprotein (HDL) cholesterol measurementOrdered By: Bradly Tanner on 39-07-2562Zksjvuskafn in HDL [Mass/Vol]60 mg/hT85-87OacofghytBerger HospitalComment on above:HDL CHOL ATP-III CLASSIFICATION Cardiovascular RiskHDL > or equal to 60 mg/dL LOWHDL < 40 mg/dL HIGHSerum or plasma total cholesterol/high density lipoprotein (HDL) cholesterol mass ratOrdered By: Bradly Tanner on 94-42-4437Wwfuutjprik.total/Cholesterol in HDL [Mass ratio]2.5 {ratio}<5.0[facility] Medical Centerodium [Moles/volume] in Serum or PlasmaOrdered By: Zeny Stanley on 10-45-9783Xesmcx [Moles/Vol]142 mmol/L 136-145Berger HospitalThyrotropin [Units/volume] in Serum or PlasmaOrdered By: Zeny Stanley on 25-50-1026OQB Qn1.25 m[IU]/L0.45-5.33Berger HospitalThyroxine (T4) [Mass/volume] in Serum or PlasmaOrdered By: Zeny Stanley on 96-96-6401D0 [Mass/Vol]10.07 ug/dL5.39-11.82Berger HospitalTriglyceride [Mass/volume] in Serum or PlasmaOrdered By: Bradly Tanner on 33-03-7732Ynmkwlzomycr [Mass/Vol]101 mg/dL0-149Berger HospitalComment on above:TRIG ATP III CLASSIFICATIONTRIG less than 150 mg/dL NormalTRIG 150-199 mg/dL Borderline highTRIG 200-500 mg/dL High TRIG greater than 500 mg/dL Very highStandard traceable to the Center for Disease Conrtrol and Prevention (CDC) test method.Triiodothyronine (T3) [Mass/volume] in Serum or PlasmaOrdered By: Zeny Stanley on 64-81-3871I8 [Mass/Vol]1.28 ng/mL0.87-1.78Berger HospitalUrea nitrogen [Mass/volume] in Serum or PlasmaOrdered By: Zeny Stanley on 26-58-8553Ekcj nitrogen [Mass/Vol]16 mg/dL7-25Berger HospitalWBC Auto (Bld) [#/Vol]Ordered By: Zeny Stanley on 62-32-3709HCK (Bld) [#/Vol]4.5 10*3/uL3.8-11.6 Berger HospitalCHEMISTRYOrdered By: SYSTEM SYSTEM on 19-17-756823789143-avcrkvrzzvgzox D3 [Mass/Vol]44.0 ng/xFJgalsk13.0 - 100.0 ng/mL Remisol ChemCalcium [Mass/Vol]9.0 mg/dLNormal8.9 - 11.1 mg/dLRemisol Chem Creatinine [Mass/Vol]0.8 mg/dLNormal0.5 - 1.3 mg/dLRemisol YuifoESK85 mL/min/1.73 z3Qpfpxn>=59mL/min/1.73 p3Jowdedb ChemCalciumon 85-64-7534Ofgbqfg [Mass/Vol]9.0 mg/dLNormal8.9-11.1Fisher [facility] Orthopaedic InstituteComment on above: Performed By: #### [id number] #### [place] [facility] [address], [place] [address]Qpdmypo for Treatmenton 72-50-6203Tonnwfq for Treatment [id number]#1.00TIFFNormalFisher [facility] Orthopaedic InstituteCreatinineon 89-10-3977Vcgqvnican [Mass/Vol]0.8 mg/dLNormal0.5-1.3Fisher [facility] Orthopaedic InstituteComment on above:Performed By: #### [id number] #### [place] [facility] [address] [place], [place] [address]Axseecidd Orderon 02-74-8130Kzolhdmmu Order [id number]#1.00Corey HospitaleGFRon 39-83-5399ePZU92 mL/min/1.73 n2Amedbw>=59P[facility] Community HospitalComment on above:Order Comment: Order added by Discern Expert.Performed By: #### [id number] #### [place] [facility] [address], [place] [address]Tjbccpmdp Orderon 88-48-7759Rdndhppcp Order [id number]#1.00Corey HospitalFacesheeton 99-63-2080Qpnapgkmi [id number]#1.00Corey HospitalAmbulatory Visit Summaryon 29-54-1861Drwkpwzdae Visit Summary LOVELYCHEPE MCCABEJOCHYNA Ryan :1950 Visit Date:05/20/2023 Ambulatory Visit Instructions [...] you for choosing us for your care. [facility] HospitalPhysician Referralon 12-11-2023 Physician [id number]#1.00TIFFAlyssia [facility] Orthopaedic InstituteOffice Visit (Cardiology)on 56-80-9869Bkisbl-up visit Diagnoses/Problems Assessed Palpitation (785.1) (R00.2) Premature [...] Lipid Panel; Status:Active - Retrospective Authorization; Requested for:[id number]; Hypertension, Paroxysmal atrial tachycardia Basic Metabolic Panel; Status:Active - Retrospective Authorization; Requested for:[id number]; IO EKG Electrocardiogram- 12 Lead; Status:Complete; Done: [...] (more content not included)... NormalUH TouchworksTobacco Screening.on 58-09-1702Kffci depression screening assessmentNoNorthwest Hospital ICU Metrix DO Work Phone: Fall risk assessmenta) No falls within the last year [facility] BoardBookit 250 DO Work Phone: Tobacco use status CPHSb) NoMKindred Hospital [facility] - [facility] AquaMost DO Work Phone: PROF CHEM 8 (BAS METB)on 44-45-6908Wbnnm gap [Moles/Vol]11.4 mmol/LNormalCleveland Clinic Medina HospitalComment on above:Performed By: #### BMP #### [facility] [address] [place] [address] Dr. Octavio PriceCalcium [Mass/Vol]9.1 mg/dLNormal8.5-10.1[facility] Comment on above:Performed By: #### BMP #### [facility] [address] [place] [address] Dr. Octavio PriceChloride [Moles/Vol]105 mmol/CZihgdj37-995AhnCleveland Clinic Medina Hospital Comment on above:Performed By: #### BMP #### [facility] [address] [place] [address] Dr. Octavio PriceCO2 [Moles/Vol]30.6 mmol/SLtizmk28.0-32.0[facility] Comment on above:Performed By: #### BMP #### [facility] [address] [place] [address] Dr. Octavio PriceCreatinine [Mass/Vol]0.75 mg/dLNormal0.55-1.02The [facility] Medical CenterComment on above:Performed By: #### BMP #### [facility] [address] [address] [address] Octavio PuentesGFR-AF CITIZEN OF [place]>60Normal>=60The [facility] CenterComment on above:Performed By: #### BMP #### [facility] [address] [address] [address] Octavio PuentesGFR-NON AF CITIZEN OF [place]>60Normal>=60The [facility] CenterComment on above:Performed By: #### BMP #### [facility] [address] [address] [address] Octavio PriceGlucose [Mass/Vol]84 mg/eZBmrrbm58-567Ydf [facility] Comment on above:Performed By: #### BMP #### [facility] [address] [place] [address] Dr. Octavio PriecPotassium [Moles/Vol]4.0 mmol/LNormal3.5-5.1[facility] Comment on above:Performed By: #### BMP #### [facility] [address] [address] [address] Octavio Tangdium [Moles/Vol]143 mmol/ACkzojt645-902Dsh [facility] Comment on above:Performed By: #### BMP #### [facility] [address] [address] [address] Octavio PriceUrea nitrogen [Mass/Vol]13.0 mg/dLNormal7.0-18.0The [facility] CenterComment on above:Performed By: #### BMP #### [facility] [address] [address] [address] Octavio Fox nitrogen/Creatinine [Mass ratio]17.3 mg/mgNormalThe [facility] Medical CenterComment on above:Performed By: #### BMP #### [facility] [address] [address] [address] Octavio Lincoln Screening.on 11-95-3153Kygc risk assessmenta) No falls within the last year-[facility] Heart-Flomot 250 DO Work Phone: Heart RateNormalMP-[facility] Heart-Juan 250 DO Work Phone: Tobacco use status CPHSb) NoMP-[facility] Heart- Juan 250 DO Work Phone: CREATININEon 62-23-0613Dbnosudsmr [Mass/Vol]0.75 mg/dL Normal0.50 - 1.05[facility] HospitalComment on above:Performed By: #### CREAT #### [address] [address]Uortbqvaxx [Mass/Vol]mg/dLNormal>60[facility] Comment on above:Performed By: #### CREAT #### [address] [address]Gzklmp Comment: CALCULATIONS OF ESTIMATED GFR ARE PERFORMED USING THE MDRD STUDY EQUATION FOR THE IDMS-TRACEABLE CREATININE METHODS. CLIN CHEM 2007;53:766-72ELECTROLYTE PANELon 56-24-6645Mldfo gap [Moles/Vol]13 mmol/TVbqgyx88 - 20[facility] Peak HospitalComment on above:Performed By: #### ELECT #### [address] [address]Ldexkysv [Moles/Vol]103 mmol/LDvdouh76 - 107UH [facility] HospitalComment on above:Performed By: #### ELECT #### [address] [address]CXP4 (Bld) [Moles/Vol]29 mmol/QHsdexa28 - 32[facility] HospitalComment on above:Performed By: #### ELECT #### [address] [address]Eawlxqodh [Moles/Vol]4.0 mmol/LNormal3.5 - 5.3[facility] HospitalComment on above:Performed By: #### ELECT #### [address] [address]Poemol [Moles/Vol]141 mmol/BHajrni447 - 145[facility] Peak HospitalComment on above:Performed By: #### ELECT #### [facility] [address] [place], [place] [address]QRIY NITROGENon 51-41-6401Nioi nitrogen [Mass/Vol]19 mg/dLNormal 6 - 23[facility] Peak HospitalComment on above:Performed By: #### UREA #### [address] [address]QABNpu 75-82-5235HPFUBoeaxm Visit (CARDFT) --------KAY CHAVEZ ([id number]) 1950 FDate Time Provider Ikzlxsxqgy48/5/18 10:30 AM CAMILO LANTIGUA During your visit today, we recorded the following information about you: Pulse Respiration Blood pressure Weight 64/minute 18/minute 150/81 80.7 kg Height 1.651 Lzi regalado MD 02/27/2018 10:54 AM [facility] InstituteCenterville and [place] Department ofCardiovascular MedicineOUTPATIENT VISIT DATE 02/27/18OUTPATIENT VISIT TYPEESTABLISHEDPRIMARY CARE PHYSICIAN:Zeny Stanley MD[address] [facility] [address]Aubhi: [phone]: [phone] COMPLAINT:Patient presents with:Established PatientHISTORY OF [...] via U.S. Mail.This document was generated utilizing [employer] dictation. I have reviewed andverified that the contents of the document are accurate with the exception ofminor grammatical, spelling and punctuation errors.CONTACT INFORMATION:Thank you for allowing us to participate in the care of this very pleasantpatient. Please free to contact us if we can be of any further assistance.Camilo Lantigua MD, FACCRobert and Mariana Beauchamppartment of Cardiovascular MedicineEast Liverpool City Hospitalrt and Vascular Institute[address] [address]Zkmvrv: [phone] Referring Provider: ZENY STANLEY [[id number]]Allergies As of Date: 02/27/2018(No Known Allergies)Date Reviewed: [...] FOR* Status:Closed by DYANA LANTIGUA MD on 02/27/18[facility] CenterPROESSon 02-27-2018 Protein mass concHNO ID: [id number]: Camilo StewartyService: (none)Author Type: PhysicianType: Progress NotesFiled: 02/27/2018 10:54 AMNote Text:Heart and Vascular InstituteRobgallup indian medical center and [place] Department of Cardiovascular MedicineOUTPATIENT VISIT DATE 02/27/18OUTPATIENT VISIT TYPEESTABLECU HEALTH ROANOKE-CHOWAN HOSPITALPRFRYE REGIONAL [facility] ALEXANDER CAMPUSRY CARE PHYSICIAN:Zeny Stanley MD[address] [facility] [address]Czuol: [phone]: [phone] COMPLAINT:Patient presents with:Established PatientHISTORY OF PRESENT ILLNESS:Kay [...] provided to the requesting provider by way ofshbell[facility] medical record or via U.S. Mail.This document was generated utilizing Univita Healthation. I have reviewedand verified that the contents of the document are accurate with theexception of minor grammatical, spelling and punctuation errors.CONTACT INFORMATION:Thank you for allowing us to participate in the care of this very pleasantpatient. Please free to contact us if we can be of any furtherassistance.Camilo Lantigua MD, FACCRobert and Mariana Beauchamppartment of Cardiovascular MedicineUnited States Air Force [facility] and Vascular Institut [address] [place], [place] [address]Ydpgmt: [phone] NormalCSouthwest General Health Center Vital Signs Date TimeVital SignValuePerforming UjzbenwwaIqsabzoe05-62-9829 10:32-0400Body kcjnex160.6 cmBradly Tanner MD Work Phone: [phone])[address]10-10-2025 10:32-0400 Body mass index (BMI) [Ratio]32.89 kg/n3AwtktrcBradly Tanner MD Work Phone: [phone]10-10-2025 10:32-0400 Body ssasnf77.91 kgBradly Tanner MD Work Phone: [phone]10-10-2025 10:32-0400 Diastolic blood ldeceoxg35 mm[Hg]Bradly Tanner MD Work Phone: [phone]10-10-2025 10:32-0400 Heart rate78 /minBradly Tanner MD Work Phone: [phone]10-10-2025 10:32-0400 Systolic blood ysxzlqal424 mm[Hg]Bradly Tanenr MD Work Phone: [phone])[address]10-25-2024 11:02-0400 Diastolic blood eefzifiu15 mm[Hg]Bradly Tanner MD Work Phone: [phone])[address]10-25-2024 11:02-0400 Systolic blood iiwtdutd697 mm[Hg]Bradly Tanner MD Work Phone: [phone]10-25-2024 10:26-0400 Body vzvxye371.1 cmBradly Tanner MD Work Phone: [phone]10-25-2024 10:26-0400 Body mass index (BMI) [Ratio]32.28 kg/j0DpconovBradly Tanner MD Work Phone: [phone])[address]10-25-2024 10:26-0400 Body kgBradly Tanner MD Work Phone: 1(667)032-[address] [place], [place] [address]10-25-2024 10:26-0400 Heart rate60 /Alejandro Tanner MD Work Phone: [phone]12-26-2023 15:09-0500 Blood Pressure LocationMichael NILL [facility]12-26-2023 15:09-0500Diastolic blood qsakzobl71 mm[Hg]Federico NILL [facility]12-26-2023 15:09-0500Heart rate 72 /minMichael NILL [facility]12-26-2023 15:09-0500 Respiratory rate16 /minMichael NILL [facility]12-26-2023 15:09-0500Systolic blood ttmxnnsu096 mm[Hg]Federico NILL [facility]10-06-2023 09:40-0400Body uiindd104.1 cmBradly Tanner MD Work Phone: [facility]10-06-2023 09:40-0400 Body mass index (BMI) [Ratio]31.85 kg/v2EkhwbazBradly Tanner MD Work Phone: [phone])767-[address] [place], [place] [address]10-06-2023 09:40-0400 Body dbarpv22.82 kgBradly Tanner MD Work Phone: [phone] [place], [place] [address]10-06-2023 09:40-0400 Diastolic blood kynkcowp59 mm[Hg]Bradly Tanner MD Work Phone: [facility]10-06-2023 09:40-0400 Heart rate72 /Alejandro Tanner MD Work Phone: [facility]10-06-2023 09:40-0400 Systolic blood cxtuhwok303 mm[Hg]Bradly Tanner MD Work Phone: [facility]10-07-2022 09:41-0400 Body mxhici452.1 cmDouglas M Hoy Work Phone: [phone]-Cjchs [place] [facility]-Juan 250 DO Work Phone: [phone] 09:41-0400Body mass index (BMI) [Ratio] 31.78 kg/a2Vdqaasb M Hoy Work Phone: [phone]-Bwjac [place] [facility] 250 DO Work Phone: [phone] 09:41-0400Body surface area Derived from formula1.94 r5Feeoffj M Hoy Work Phone: [phone]-Whlhs [place] [facility] 250 DO Work Phone: [phone] 09:41-0400Body urcqjk10.64 kgDouglas M Hoy Work Phone: [phone]-Suour [place] [facility]uan 250 DO Work Phone: [phone] 09:41-0400Diastolic blood opwnkqal85 mm[Hg] Zeny M Hoy Work Phone: [phone]-Vmczh [place] [facility] 250 DO Work Phone: [phone] 09:41-0400Heart rate69 /minDouglas M Hoy Work Phone: [phone]-Nzqzl [place] [facility] 250 DO Work Phone: [phone] 09:41-0400Systolic blood ppidioqi006 mm[Hg] Zeny M Hoy Work Phone: [phone]-Kxbfg [place] [facility] 250 DO Work Phone: [phone] 09:42-0400Body akqvvc596.1 cmDouglas M Hoy Work Phone: [phone]-Adoeq [place] [facility] 250 DO Work Phone: 1(780) 352-286910-01-2021 09:42-0400Body mass index (BMI) [Ratio] 31.62 kg/b6Qmequhx M Hoy Work Phone: [phone]-Jzssy [place] [facility] 250 DO Work Phone: [phone] 09:42-0400Body surface area Derived from formula1.94 j6Yxjddin M Hoy Work Phone: [phone]-Uunej [place] [facility] 250 DO Work Phone: 1([phone]) 317-664710-01-2021 09:42-0400Body oafypw05.18 kgDocharo Keane Hoy Work Phone: [phone]-Hfaus [place] [facility] 250 DO Work Phone: 1(532) [phone] 09:42-0400Diastolic blood anwfxigm80 mm[Hg] Zeny Keane Hoy Work Phone: [phone]-Rzmdl [place] [facility] 250 DO Work Phone: 1([phone] 09:42-0400Heart rate62 /minDouglas Lakhwinder Hoy Work Phone: [phone]-Nfygy [place] [facility] 250 DO Work Phone: [phone] 09:42-0400Systolic blood pixbbysg001 mm[Hg] Zeny Keane Hofabricio Work Phone: [phone]-Wlgkr [place] [facility] 250 DO Work Phone: Encounters Encounter DateEncounter TypeCare ProviderFacilityStart: 40-81-5376zaixfiqbum Lauren TannaFacility:SANDY CotoevueStart: 90-80-4075qfvayttzfsBumoie Tanna Facility:SANDY SanduskyStart: 03-18-2025 End: 07-42-1112ctiyivcowgEtyhtgq M HoyFacility:[facility] Start: 03-04-2025 End: 68-16-8060Vzzwnq outpatient visit 25 minutesMorosa isela Tanner MD Work Phone: [facility]'s HospitalComment on above:Premature ventricular contractions (Primary Dx); Palpitation; Paroxysmal atrial tachycardia; Primary hypertension; Hyperlipidemia, unspecified hyperlipidemia type; BMI 32.0-32.9,adult; Never smoked tobacco; Essential (primary) hypertensionStart: 03-04-2025 End: 32-80-2924assczojwehXJFHCTK TRABOULStarr County Memorial Hospital AmbulatoryStart: 02-22-2025 End: 67-58-5534Baynnbj encounter procedureBradly Tanner MD-Lab [facility] [place] [facility] Work Phone: Start: 02-22-2025 End: 61-37-0638utwqrysrtvExzdmro M Hoy MD Work Phone: [facility] Work Phone: Start: 02-01-2025 End: 69-63-9650dubshwpiwrWlssqve M Hoy MD Work Phone: [facility] Work Phone: Start: 02-01-2025 End: 42-75-9323Kkdvgyzz ReferredZeny Keane MD-LAB [facility] Start: 12-27-2024 End: 25-82-7229igchjpkzjqKubmrpi Ni Castrejon MDFacility:[facility] [place] Start: 11-30-2024 End: 79-21-0315afiosmzfvdElqin Romulo ValentineFacility:[facility] HospitalStart: 11-24-2024 End: 63-73-9429ymxpdneqrdOgdyu Romulo ValentineFacility:[facility] HospitalStart: 11-11-2024 End: 75-79-5040vutvkquvsyAbkice R. ZieberFacility:[facility] HospitalStart: 10-27-2024 End: 13-34-5528chswqdoqohFmonwr R. ZieberFacility:[facility] HospitalStart: 10-19-2024 End: 01-56-7354tekevfqxdkTumil Romulo ValentineFacility:[facility] Hospitaltart: 10-14-2024 End: 36-83-5231vngioaerntBkboxv R. ZieberFacility:[facility] Hospitaltart: 10-12-2024 End: 58-14-0337pxdwieeuscNrlyxp J LampeFacility:[facility] SERVICEStart: 10-12-2024 End: 43-60-9293Etjjjfh encounter procedureTerernie Shannon [facility] Start: 10-07-2024 End: 41-16-8976hzrjtcscyjRrrgbq R. ZieberFacility:[facility] Hospitaltart: 09-29-2024 End: 77-88-7052ledmoztdilHygnhk R. ZieberFacility:[facility] Hospitaltart: 09-23-2024 End: 81-78-4263woeqwxfexoQzhoe V. WestFacility:[facility] Hospitaltart: 09-15-2024 End: 32-86-2531dabacizrvaPbuch V. WestFacility:[facility] Hospitaltart: 03-19-2024 End: 34-73-2260Mibvww outpatient visit 15 minutesBradly Tanner MD Work Phone: [facility]'s HospitalComaspirus ontonagon hospital on above:Palpitation (Primary Dx); Paroxysmal atrial tachycardia (CMS-HCC); Premature ventricular contractions; Primary hypertension; Hyperlipidemia, unspecified hyperlipidemia type; BMI 32.0-32.9,adultStart: 03-19-2024 End: 70-95-6371xusqxfkvvsVTLMUMT [facility] AmbulatoryStart: 03-10-2024 End: 41-43-3626zfzqmrrwlbQC Zeny Stanley Work Phone: [facility] Work Phone: Start: 03-10-2024 End: 64-56-8948Ruvsmch encounter procedure Zeny Bethany Work Phone: [facility]-Lab [facility] [place] Work Phone: Start: 41-53-0195nqcyspijynEczjyq J LampeFacility:[facility] Start: 10-10-2023 End: 66-02-8713Mmimxwh encounter procedureTertipshelby Chito Laytone [facility] Start: 05-20-2023 End: 67-94-3435ryemkuturjVugkimg R NILLFacility: BellevueStart: 05-20-2023 End: 73-95-6167Ebopvvn encounter procedureMichael R NILL General Surgery Nill/Said [facility] Start: 60-71-9044yzhacaxqbpCscwjn LampeFacility: BellevueStart: 02-28-2023 End: 46-56-8065Rxmvtw outpatient visit 15 minutesBradly Tanner MD Work Phone: FirelandsComment on above:Palpitation (Primary Dx); Paroxysmal atrial tachycardia; Premature ventricular contractions; Class 1 obesity; Primary hypertension; Hyperlipidemia, unspecified hyperlipidemia typeStart: 95-65-8325euyspgxsjd SHANE FINNEY .Facility:C4Vgvwr: 24-94-4410uaqbmilyehHC ZENY STANLEY . Facility:X7Xseaj: 10-01-2022 End: 72-62-1028vqlkxvaqjzICVMEYSIIETW LUZSHMIPATHFabricio .Facility:M9Zvvgx: 07-31-2022 End: 55-16-2946uqbbngedhlMMELI D HIGHLANDERFacility:N2Utvak: 03-20-2022 End: 62-75-4564uvnsodytleZHJYD D HIGHLANDERFacility:O5Gjwqi: 52-34-8873Zd RenewalDouglas M Hoy Work Phone: [phone]-Zjqny [place] [facility] 250 DO Work Phone: Start: 18-32-9911rwvjhliccwAhmbulatoryDr. Bradly Tanner Facility:095[address]Vwtrj: 72-59-7642Flrsjr outpatient visit 15 minutesDouglas M Hoy Work Phone: [phone]-Bfons [place] [facility] 250 DO Work Phone: Start: 02-19-2022 End: 56-11-6905uvmnzfkoajID ANANTH Danielson WESTFacility:Z1Mmixb: 02-04-2022 End: 38-06-5451aubonqyyeeZM MOROSA ISELA TRABOULSSIFacility:N7Vjjlt: 01-22-2022 End: 66-72-2903ldumhejkkmITMWNGKV CULLENFacility:R5Gumsl: 01-02-2022 End: 56-19-9109pawxenfallXQ ANANTH Danielson WESTFacility:U7Cujvu: 12-27-2021 End: 10-27-7460dzqafngorhABTJSGUI CULLENFacility:W0Vzcpl: 11-29-2021 End: 40-64-1273wcokpyypogMFINWCUY CULLENFacility:V7Iepco: 10-04-2021 End: 39-36-5092Uddoxdi encounter procedureTerernie Shannon [facility] Start: 19-29-4240Aumhbrx encounter procedureZeny Stanley Work Phone: [phone]-Fjnhp [place] [facility] 250 DO Work Phone: Start: 02-27-2018 End: 54-86-6567Ximtfsy encounterYANDELCARMEN BOND [facility] Procedures DateProcedureProcedure DetailPerforming ClinicianStart: 46-33-9399Dqvxc culture Zeny Stanley MD Work Phone: Start: 89-96-0617Gedvfkvt of lesion of skinMichael NILL Comment on above:left earAppendectomyZeny Stanley Work Phone: Cataract surgeryDougangelo Stanley Work Phone: Dilation and curettageTeresa Shiva Extraction of cataractMichael NILL HysterectomyZeny Stanley Work Phone: HysterectomyTeresa Shiva Ligation of varicose veinDouglas Lakhwinder Stanley Work Phone: Stripping of veinTeresa Shiva TonsillectomyDouglas Lakhwinder Stanley Work Phone: TonsillectomyTeresa Shiva Total abdominal hysterectomy with bilateral salpingo-oophorectomyMichael NILL Plan of Treatment DateCare ActivityDetailAuthorStart: 67-86-4874Utcrejyhl for malignant neoplasm of colonHenry County HospitalStart: 03-04-2026 End: 77-15-6137Zjwqwln aminotransferase [Enzymatic activity/volume] in Serum or Plasma by With P-5'-PAlanine Aminotransferase Lab Routine Hyperlipidemia, unspecified hyperlipidemia type Expected: 03/04/2026, Expires: 06/02/2026[facility] Service Area Work Phone: Comment on above:Expected: 03/04/2026, Expires: 06/02/2026Start: 03-04-2026 End: 41-01-0624Fbmywbbbc aminotransferase [Enzymatic activity/volume] in Serum or Plasma by With P-5'-PAspartate Aminotransferase Lab Routine Hyperlipidemia, unspecified hyperlipidemia type Expected: 03/04/2026, Expires: 06/02/2026 [facility] Work Phone: Comment on above:Expected: 03/04/2026, Expires: 06/02/2026Start: 03-04-2026 End: 09-24-9191Ajmkm metabolic 2000 panel - Serum or PlasmaBasic Metabolic Panel Lab Routine Premature ventricular contractions Primary hypertension Expected: 03/04/2026, Expires: 06/02/2026[facility] Work Phone: Comment on above:Expected: 03/04/2026, Expires: 06/02/2026Start: 03-04-2026 End: 14-44-4855Ncmkv 1996 panel - Serum or PlasmaLipid Panel Lab Routine Hyperlipidemia, unspecified hyperlipidemia type Expected: 03/04/2026, Expires: 06/02/2026[facility] Work Phone: Comment on above:Expected: 03/04/2026, Expires: 06/02/2026Start: 03-03-2026 End: 39-90-5053Qnrtipq encounter piktehhdo95/09/2026 10:30 AM EDT Office Visit [address] [place] [address] Bradly Tanner MD [address] [facility] [address] [place] [address] [facility]: 42-08-3390Bzmwjosja for osteoporosisBone Density [facility]: 07-30-2025 Medicare Annual Wellness VisitMedicare Annual Wellness Visit (AWV)[facility]: 03-04-2025 End: 93-02-2713Qpcbxey encounter vqkyuxkjv60/10/2025 10:30 AM EDT Office Visit [address] [place] [address] Bradly Tanner MD [address] [place] [address] [address], [address] [place] [address] [facility]: 92-63-5924FIF High Risk: (Elderly (60+) or Population) (1 - 1-dose 75+ series)RSV High Risk: (Elderly (60+) or Population) (1 - 1-dose 75+ series)[facility]: 02-17-2025 End: 21-53-2836Dbtczig aminotransferase [Enzymatic activity/volume] in Serum or Plasma by With P-5'-PAlanine Aminotransferase Lab Routine Hyperlipidemia, unspecified hyperlipidemia type Expected: 02/17/2025, Expires: 03/19/2025 [facility] Work Phone: Comment on above:Expected: 02/17/2025, Expires: 03/19/2025Start: 02-17-2025 End: 31-15-8086Fbytirwdz aminotransferase [Enzymatic activity/volume] in Serum or Plasma by With P-5'-PAspartate Aminotransferase Lab Routine Hyperlipidemia, unspecified hyperlipidemia type Expected: 02/17/2025, Expires: 03/19/2025 [facility] Work Phone: Comment on above:Expected: 02/17/2025, Expires: 03/19/2025Start: 02-17-2025 End: 30-17-5536Tbxtk metabolic 2000 panel - Serum or PlasmaBasic Metabolic Panel Lab Routine Primary hypertension Expected: 02/17/2025, Expires: 03/19/2025[facility] Service Area Work Phone: Comment on above:Expected: 02/17/2025, Expires: 03/19/2025Start: 02-17-2025 End: 83-37-5796Gkwuk 1996 panel - Serum or PlasmaLipid Panel Lab Routine Hyperlipidemia, unspecified hyperlipidemia type Expected: 02/17/2025, Expires: 03/19/2025[facility] Work Phone: Comment on above:Expected: 02/17/2025, Expires: 03/19/2025Start: 93-64-8257Knfqhmad identified in Urine by CultureUrine Culture [facility] Centertart: 74-26-0296Croza cultureOhio State University Wexner Medical Centertart: 09-89-1009QLMEN-19 Vaccine ( season) COVID-19 Vaccine ( season)[facility] HospitalStringsted: 31-15-6615Ahxrcsdve vaccinationInfluenza Vaccine (#1)[facility]: 09-23-7157Egcbixkct for malignant neoplasm of colonDoctors Hospital: 03-19-2024 End: 51-33-7853Rarmfac encounter yyekijaiu59/25/2024 10:20 AM EDT Office Visit [address] [address] Bradly Tanner MD [address] [facility] [address] [place] [address] [facility]: 94-64-9933FRCCQ-19 Vaccine ( season)COVID-19 Vaccine ( season)[facility]: 86-43-5100Mhycughmh vaccinationInfluenza Vaccine (#1)[facility]: 88-12-1773LRQ, Provider: Bradly Tanner, Status: Pen, Time: 9:20 AMFUV, Provider: Bradly Tanner, Status: Pen, Time: 9:20 AM[facility] 250 DO Work Phone: Start: 81-23-7892Ydceiulvx vaccinationInfluenza Vaccine (#1)[facility]: 77-95-0936Yvgssbwgl for osteoporosisBone Density ScanDoctors Hospital: 04-22-2022 COVID-19 Vaccine (4 - Pfizer series)COVID-19 Vaccine (4 - Pfizer series) [facility]: 78-28-3209RIW, Provider: Bradly Tanner, Status: Pen, Time: 9:30 AMFUV, Provider: Bradly Tanner, Status: Pen, Time: 9:30 AMSt. [facility] 250 DO Work Phone: Start: 78-99-7377NEW High Risk: (Elderly (60+) or Population) (1 - Risk 60-74 years 1-dose series)RSV High Risk: (Elderly (60+) or Population) (1 - Risk 60-74 years 1-dose series)[facility]: 85-88-7826Bwgvqywmr for malignant neoplasm of breastMammogramDoctors Hospital: 06-61-0567GCyT/Tdap/Td Vaccines (1 - Tdap)DTaP/Tdap/Td Vaccines (1 - Tdap)[facility]: 40-89-1923Zcdbijng mellitus screeningDiabetes Screening [facility]: 99-60-0164Oclknhqom C screeningHepatitis C ScreeningUnCleveland Clinic [facility]: 98-35-7383LIF Vaccines (1 of 1 - Standard series)MMR Vaccines (1 of 1 - Standard series)[facility]: 75-76-6502Smtpt panelLipid PanelUnCleveland Clinic [facility]mount Hospital: 1950Medicare Annual Wellness VisitMedicare Annual Wellness Visit (AWV)[facility]: 43-82-2823Ogablgdpq for malignant neoplasm of colonUnCleveland Clinic [facility]mount Hospital: 1950 Yearly Adult PhysicalYearly Adult PhysicalUnCleveland Clinic [facility] Hospital Immunizations Immunization DateImmunizationNotesCare YkkklugdLoavvorr39-54-6360kgyscuonh virus vaccine, unspecified formulationBradly Tanner MD Work Phone: [facility] Work Phone: [phone]c virus vaccine, unspecified formulationMichael NILL General Surgery Napntwlq04-18-9609Suh vaccine, quadrivalent, high-dose, preservative free, age 65y+ (FLUZONE)Bradly Tanner MD Work Phone: [facility] Work Phone: [phone]i virus vaccine, unspecified formulationBradly Tanner MD Work Phone: [facility] Work Phone: [phone] COVID-19 Vac Bivalent 30 MCG/0.3ML Intramuscular SuspensionZeny Stanley Work Phone: [facility] 250 DO Work Phone: Comment on above:Series:22-27-1650BTED-CoV-2 (COVID- 19) mRNA BNT-162b2 vaxMichael NILL [facility] CenterHymueijp60-82-6251Iwifqiauw, Seasonal, Quadrivalent, AdjuvantedBradly Tanner MD Work Phone: [facility] Work Phone: [phone] 384-737603-913038-77-2878sksirc vaccine recombinantBradly Tanner MD Work Phone: [facility] Work Phone: [phone]-GuI-2 (COVID-19) mRNA BNT-162b2 vax Federico FRANCIS [facility] Medical CenterueComment on above:Result Comment: 2023-05-09: [id number]-WmX-6 (COVID-19) mRNA BNT-162b2 vax Fed[facility]ico FRANCIS [facility] CenterueComment on above:Result Comment: 2023-05-09: FVC5561-47-1570qnedcu vaccine recombinantBradly Tanner MD Work Phone: [facility] Work Phone: [phone]thap polysaccharide vaccine, 23 valentBradly Tanner MD Work Phone: [facility] Work Phone: [phone]qxz virus vaccine, unspecified formulationZeny Stanley Work Phone: [phone]-Lzpew [place] [facility] 250 DO Work Phone: [phone]lly, high dose seasonal, preservative-freeBradly Tanner MD Work Phone: [facility] Work Phone: [phone]qzhgayubcmx polysaccharide vaccine, 23 valentBradly Tanner MD Work Phone: [facility] Work Phone: [phone]hpb conjugate vaccine, 13 valbobby Stanley Work Phone: [phone] [address] [place] Work Phone: [phone], injectable, quadrivalent, preservative freeBradly Tanner MD Work Phone: [facility] Work Phone: [phone]nmenphnif polysaccharide vaccine, 23 valentZeny Stanley Work Phone: [phone][facility] DO Work Phone: [phone]vdxiku, seasonal, injectable, preservative freeBradly Tanner MD Work Phone: [facility] Work Phone: [phone], injectable, quadrivalent, contains preservativeBradly Tanner MD Work Phone: [facility] Work Phone: [phone], seasonal, injectableBradly Tanner MD Work Phone: [facility] Work Phone: Payers DatePayer CategoryPayerPolicy [id number]-[id number] [id number] 2025 Medicare supplemental policy (as second payer)[employer] S[employer]IOR SUPP[employer]MENT [id number] [id number] Health Insurance [id number] 1.2.840.026918.1.13.647.2.7.9.843883.802835.35732-74-9069Gezzlgq60-60-0523 Medicare1.2.840.515133.1.13.647.2.7.3.319757.315 [id number] [id number] 2..1.215701.3.579.2.06751-61-2251Gxcxenk4471380 2..1.983427.3.579.2.65411-73-4734Tfmkgrb3618371 2..1.010557.3.579.2.68269-93-8466Ekhqhro5774527 2..1.613731.3.579.2.91403-92-2660Ovfwxld0153851 2.16.840.1.001345.3.579.2.73182-56-9629Ojpsomx1791030 2.16.840.1.140256.3.579.2.05751-79-0808Laqmeaz8496988 2.16.840.1.216841.3.579.2.51884-16-6423Tvzbmls7984594 2.840.1.681940.3.579.2.14805-88-7870Yuwyiyz8559120 2.16.840.1.476011.3.579.2.42718-76-4735Tiwwata2287189 2.840.1.960003.3.579.2.84958-95-3117Htggcky5918707 2.840.1.772253.3.579.2.33401-69-8502Pbazbpv1088066 2.840.1.484252.3.579.2.28003-56-4783Igsprqo42022000 2.840.1.410254.3.579.2.76808-49-0120Elcsrsg09919575 2.840.1.874074.3.579.2.37225-84-8708Resrnte06780701 2.840.1.072582.3.579.2.89710-02-2353Utlacub69810708 2.840.1.850275.3.579.2.41592-57-0974Dmylajt93364092 2.840.1.204886.3.579.2.41762-37-9813Vhwadbz53918000 2.840.1.384996.3.579.2.82253-34-7588Lipjjso81792135 2.840.1.994330.3.579.2.93251-19-9047Amzztxy36511622 2..840.1.220040.3.579.2.45909-27-8410Kvfewgn31398366 2.16840.1.008841.3.579.2.85365-62-5769Fkbxliz70541196 2.16.840.1.084592.3.579.2.45559-07-5599Qasvqtj02184926 2.840.1.829901.3.579.2.43279-43-1968Trvengj69607732 2.0.1.398043.3.579.2.64969-43-6230Aaoznae903166768 2..1.352777.3.579.2.36169-28-1440Qaoldwz154666292 2.0.1.709943.3.579.2.737947-26-5550Vunliqy362351876 2.0.1.253584.3.579.2.566102-23-2765Wspeayz41602035 2.0.1.946356.3.579.2.17214-44-7315Imwfxjh15049547 2.840.1.399014.3.5[id number] [id number]-[id number] /LPXMR775Z1071 92987u1g-7v9c-2xe7-2114-eq4t6972t6p5Pliouya18978564 2.16.840.1.761381.3.579.2.732Ynvktnj80148699 2.16840.1.362200.3.579.2.531 Exwkggq82603828 2.16840.1.749122.3.579.2.531 Social History DateTypeDetailFacilityStart: 02-28-2023 End: 84-79-7708Iikjooi useAlcohol useMP-[facility] [address] DO Work Phone: Start: 07-23-2021 End: 71-51-2211Srdqlmq smoking statusNever smoked tobacco (finding)[facility]: 29-76-5978Fbicwfg smoking statusNeverSycamore Medical Centertart: 02-28-2023 End: 53-31-3622Xtw [facility] At [facility] Northtart: 76-16-6594Gkcsmfg use and exposureSmokeless tobacco non-userUnC[facility] Work Phone: Start: 02-28-2023 End: 67-17-0772Cvktmve intakeEx-drinker (finding)[facility] Work Phone: Start: 00-49-0534Asg Assigned At BirthNot on file [facility] Work Phone: Start: 02-18-2023 End: 99-22-8272Aijiaudi to SARS-CoV-2 (event)Not sureUnCleveland Clinic Medina HospitalStart: 91-80-4223Laz Assigned At [facility] Hospitalexual OrientationHolzer Medical Center – [facility] Start: 88-25-2019ZryYuwhiz (finding)[facility] – JacksonTobacc smoking status NHISUnknown if ever smokedSelect Medical [facility] Work Phone: Functional Status LwagTolpaftqngYzqdmjWvmjimnr40-20-6401Hzhucmxkap skwyxd993/74UnC[facility]10-10-2025Vital signs78 03/04/2025 10:32 AM Judi Singh RNUnC[facility] Clinic [facility] Hospital Work Phone: [phone] Clinic Medina Hospital Work Phone: [phone]dffou StatusN/AGeneral Surgery [place] Clinical Notes 11-30-2021 to 04-06-2025 Note Date & BuijHolmJmuenypf36-83-5534 NotePatient Education Obstetrics and Gynecology Urinary Tract Infection, Adult A urinary tract infection (UTI) is an infection of any part of the urinary tract. The urinary tractincludes the kidneys, ureters, bladder, and urethra. These organs make, store, and get rid of urinein the body. An upper UTI affects the ureters and kidneys. A lower UTI affects the bladder and urethra. What are the causes? Most urinary tract infections are caused by bacteria in your genital area around your urethra, where urine leaves your body. These bacteria grow and cause inflammation of your urinary tract. What increases the risk? You are more likely to develop this condition if: ??? You have a urinary catheter that stays in place. ??? You are not able to control when you urinate or have a bowel movement (incontinence). ??? You are female and you: ? Use a spermicide or diaphragm for control. ? Have low estrogen levels. ? Are . ??? You have certain genes that increase your risk. ??? You are sexually active. ??? You take antibiotic medicines. ??? You have a condition that causes your flow of urine to slow down, such as: ? An enlarged prostate, if you are male. ? Blockage in your urethra. ? A kidney stone. ? A nerve condition that affects your bladder control (neurogenic bladder). ? Not getting enough to drink, or not urinating often. ??? You have certain medical conditions, such as: ? Diabetes. ? A weak disease-fighting system (immunesystem). ? Sickle cell disease. ? Gout. ? Spinal cord injury. What are the signs or symptoms? Symptoms of this condition include: ??? Needing to urinate right away (urgency). ??? Frequent urination. This may include small amounts of urine each time you urinate. ??? Pain or burning with urination. ??? Blood in the urine. ??? Urine that smells bad or unusual. ??? Trouble urinating. ??? Cloudy urine. ??? Vaginal discharge, if you are female. ??? Pain in the abdomen or the lower back. You may also have: ??? Vomiting or a decreased appetite. ??? Confusion. ??? Irritability or tiredness. ??? A fever or chills. ??? Diarrhea. The first symptom in older adults may be confusion. In some cases, they may not have any symptoms until the infection has worsened. How is this diagnosed? This condition is diagnosed based on your medical history and a physical exam. You may also have other tests, including: ??? Urine tests. ??? Blood tests. ??? Tests for STIs (sexually transmitted infections). If you have had more than one UTI, a cystoscopy or imaging studies may be done to determine the cause of the infections. How is this treated? Treatment for this condition includes: ??? Antibiotic medicine. ??? Pdjb-pnh-efyijcd medicines to treat discomfort. ??? Drinking enough water to stay hydrated. If you have frequent infections or have other conditions such as a kidney stone, you may need to see a health care provider who specializes in the urinary tract (urologist). In rare cases, urinary tract infections can cause sepsis. Sepsis is a life- threatening condition that occurs when the body responds to an infection. Sepsis is treated in the hospital with IV antibiotics, fluids, and other medicines. Follow these instructions at home: Medicines ??? Take ilcf-qyb-glloqgj and prescription medicines only as told by your health care provider. ??? If you were prescribed an antibiotic medicine, take it as told by your health care provider. Donot stop using the antibiotic even if you start to feel better. General instructions ??? Make sure you: ? Empty your bladder often and completely. Do not hold urine for long periods of time. ? Empty your bladder after sex. ? Wipe from front to back after urinating or having a bowel movement if you are female. Use each tissue only one time when you wipe. ??? Drink enough fluid to keep your urine pale yellow. ??? Keep all follow-up visits. This is important. Contact a health care provider if: ??? Your symptoms do not get better after 1?2 days. ??? Your symptoms go away and then return. Get help right away if: ??? You have severe pain in your back or your lower abdomen. ??? You have a fever or chills. ??? You have nausea or vomiting. Summary ??? A urinary tract infection (UTI) is an infection of any part of the urinary tract, which includes the kidneys, ureters, bladder, and urethra. ??? Most urinary tract infections are caused by bacteria in your genital area. ??? Treatment for this condition often includes antibiotic medicines. ??? If you were prescribed an antibiotic medicine, take it as told by your health care provider. Donot stop using the antibiotic even if you start to feel better. ??? Keep all follow-up visits. This is important. This information is not intended to replace advice given to you by your health care provider. Make sure you di (more content not included)...[facility]10-10-2025 History of Present illness Narrative* Bradly Tanner [...] Attestation By signing my name below, I, Nina Clemente LPN, Scribe attest that this documentation has [...] exam, discussion and plan. [facility] Work Phone: [phone]) 592-213710-10-2025 Instructions* Patient Instructions* Nina Stewart LPN - [...] through Care Everywhere. * Diet and health (Spanish) documented in [facility]Henry [facility] Work Phone: 1(550) 762-213807-02-2025 NoteSclerotherapy Sclerotherapy is a procedure that is [...] including vitamins, herbs, eye drops, creams, and eydd-mmm-qntdckm medicines. ? Any bleeding problems you have. [...] care provider tells you to. ? Taking hnlg-gbm-oiofdpk medicines, vitamins, herbs, and supplements. Tests ? [...] ? Do not wa (more content not included)...[facility] HospitalMtgxhlal45-38-1826 Note Radiology Sclerotherapy Sclerotherapy is a procedure [...] including vitamins, herbs, eye drops, creams, and lmnj-gyi-srrxwnu medicines. ? Any bleeding problems you have. [...] care provider tells you to. ? Taking pizq-zlr-hcutteo medicines, vitamins, herbs, and supplements. Tests ? [...] right away. Call 911. (more content not included)...[facility] HospitalUyiwlcgo58-32-2248 NoteRadiology Sclerotherapy Sclerotherapy is a procedure that [...] including vitamins, herbs, eye drops, creams, and bepp-lhi-ururzsu medicines. ? Any bleeding problems you have. [...] care provider tells you to. ? Taking gxym-jul-xmnyfay medicines, vitamins, herbs, and supplements. Tests ? [...] right away. Call 911. (more content not included)...[facility] HospitalHcuobpzo41-44-5858 NotePROCEDURE: US Injection Varicose Vein Multiple HISTORY: [...] Neptali Islas MD 10/14/24 1:35 pm Technologist: [facility]05-12-2025 NoteRadiology Sclerotherapy Sclerotherapy is a procedure [...] including vitamins, herbs, eye drops, creams, and xcwg-lju-aazgbzl medicines. ? Any bleeding problems you have. [...] care provider tells you to. ? Taking dkeq-xzi-qmkmdop medicines, vitamins, herbs, and supplements. Tests ? [...] right away. Call 911. (more content not included)...[facility] HospitalPfivtymc48-68-8199 NotePROCEDURE: US Injection Varicose Vein Multiple HISTORY: [...] days. PERSONNEL: Kip Thao RN, Ghazala Ledesma, JARED, RVT Final Dictated by: Neptali Islas MD Dictated DT/TM: 09/29/24 2:41 Signed (Electronic Signature): Neptali Islas MD 09/29/24 2:44 pm Technologist: [facility]10-25-2024 History of Present illness Narrative * [...] Scribe Attestation By signing my name below, Huma Billings LPN, Scribe attest that this documentation has been prepared under the direction and in the presence of MD Ashanti. Provider Attestation - Scribe documentation All medical record entries made by the Scribe were at my direction and personally dictated by me. Deepali reviewed the chart and agree that the record accurately reflects my personal performance of the history, physical exam, discussion and plan. documented in this encounterHenry [facility] Hospital Work Phone: [phone]) 441-898710-25-2024 Instructions* Patient Instructions* Huma Benitez LPN - [...] sent through Care Everywhere. * DASH Diet (Spanish) documented in this encounterHenry [facility] Hospital Work Phone: [phone]) 367-556312-26-2023 NoteChief Complaint consultation for skin lesion HPI [...] virus vaccine, inactivated 03/26/2023 Recorded SARS-CoV-2 (COVID-19) mRNAMUL.ORD![id number] 02/25/2022 Recorded SARS-CoV-2 (COVID-19) mRNA BNT-162b2 vax 05/11/2021 Recorded SARS-CoV-2 (COVID-19) mRNA BNT-162b2 vax 07/19/2020 Recorded 2023-05-09: TPV70 SARS-CoV-2 (COVID-19) mRNA BNT-162b2 vax 06/28/2020 Recorded 2023-05-09: TPV70 [facility]:Result Comment: Electronically Signed By: [...] Hyperlipidemia, unspecified hyperlipidemia type documented in this encounterHenry County Hospital Work Phone: [phone]) 707-448510-06-2023 Instructions* Patient Instructions* Nina Stewart LPN - [...] Follow up 9 month documented in this encounterHenry [facility] Hospital Work Phone: [phone] NoteCONSULTATION CONSULTATION DATE: 10/01/2022 CHIEF COMPLAINT: Includes [...] our patients to inform us about any lzxi-tnf-mkboafd medications or herbal remedies/nutritional supplements/alternative remedies. 2. [...] treatment options with their primary care provider.[facility] CenterTrmasusx95-24-0542 NotePROCEDURE: XR FOOT LT MIN 3 VIEWS [...] Electronically authenticated by: ANANTH VALENTINE Date: 2022-07-31 10:34[facility]10-26-2022 NotePROCEDURE: XR FOOT LT MIN 3 VIEWS [...] Electronically authenticated by: NEPTALI ISLAS Date: 2022-03-20 21:30[facility]09-27-2022 NotePROCEDURE: XR FOOT LT MIN 3 VIEWS [...] Electronically authenticated by: ANANTH VALENTINE Date: 2022-02-19 18:22[facility]08-30-2022 NotePROCEDURE: XR FOOT LT MIN 3 VIEWS [...] Electronically authenticated by: NEPTALI ISLAS Date: 2022-01-22 10:35[facility]08-10-2022 NotePROCEDURE: XR FOOT LT MIN 3 [...] Electronically authenticated by: ANANTH VALENTINE Date: 2022-01-02 16:27[facility]08-05-2022 NotePROCEDURE: XR FOOT LT MIN 3 [...] Electronically authenticated by: NEPTALI ISLAS Date: 2021-12-28 07:39[facility]07-08-2022 NotePROCEDURE: XR FOOT LT MIN 3 [...] Electronically authenticated by: NEPTALI ISLAS Date: 2021-11-30 08:48[facility] HospitalEvaluation + Plan note No data available for this section [facility]* Diagnosis Palpitation- Primary Palpitations Paroxysmal atrial tachycardia Paroxysmal supraventricular tachycardia Premature ventricular contractions Other premature beats Class 1 obesity Primary hypertension Unspecified essential hypertension Hyperlipidemia, unspecified hyperlipidemia type documented in this encounter [facility] Work Phone: Evaluation noteNo assessment information available [facility] Work Phone: Evaluation note* Diagnosis Palpitation- Primary Palpitations Paroxysmal atrial tachycardia (CMS-HCC) Paroxysmal supraventricular tachycardia Premature ventricular contractions Other premature beats Primary hypertension Unspecified essential hypertension Hyperlipidemia, unspecified hyperlipidemia type BMI 32.0-32.9,adult documented in this encounter [facility] Work Phone: Evaluation note* Diagnosis Premature ventricular contractions- Primary Other premature beats Palpitation Palpitations Paroxysmal atrial tachycardia Paroxysmal supraventricular tachycardia Primary hypertension Unspecified essential hypertension Hyperlipidemia, unspecified hyperlipidemia type BMI 32.0-32.9,adult Never smoked tobacco Essential (primary) hypertension Unspecified essential hypertension documented in this encounter [facility] Work Phone: History of Present illness [...] will see her back in 1 year [facility] [address] DO Work Phone: History of Present [...] year plan to repeat her lab work [facility] Work Phone: Hospital Discharge instructions No data available for this section [facility] note No data available for this section General Surgery [place] Reason for referral (narrative)* Consultation (Routine) - AuthorizedSpecialtyDiagnoses / ProceduresReferred By ContactReferred To ContactCardiology Diagnoses Paroxysmal atrial tachycardia Premature ventricular contractions Procedures Follow Up In Cardiology Bradly Tanner MD [address] [place] [address] Referral IDStatusReasonStart DateExpiration DateVisits RequestedVisits [id number]/6/20234/ [facility] Work Phone: Reason for referral (narrative)No reason for referral information availableSelect Medical [facility] Work Phone: Summary Purpose Family History No [...] section and content) DATE CREATED AUTHOR 03/27/2018 [facility] DATE CREATED AUTHOR AUTHOR'S ORGANIZ ATION 08/13/2019 [facility] DATE CREATED AUTHOR AUTHOR'S ORGANIZ ATION 03/01/2022 [facility] DATE CREATED AUTHOR AUTHOR'S ORGANIZ ATION 03/02/2022 [facility] DATE CREATED AUTHOR AUTHOR'S ORGANIZ ATION 10/10/2022 [facility] DATE CREATED AUTHOR AUTHOR'S ORGANIZ ATION 10/12/2023 [facility] DATE CREATED AUTHOR AUTHOR'S ORGANIZ ATION 12/03/2024 [facility] DATE CREATED AUTHOR AUTHOR'S ORGANIZ ATION 01/09/2025 [facility] DATE CREATED AUTHOR AUTHOR'S ORGANIZ ATION 03/06/2025 [facility] DATE CREATED AUTHOR AUTHOR'S ORGANIZ ATION 03/22/2025 [facility] DATE CREATED AUTHOR AUTHOR'S ORGANIZ ATION 04/06/2025 [facility] Reason for Visit (unrecogniz ed section and content) ReasonCommentsAnnual Zpoi1wdZdwqaqKfzqribcGouyev-xv1 yrSpecialtyDiagnoses / ProceduresReferred By ContactReferred To ContactCardiology Diagnoses Paroxysmal atrial tachycardia (CMS-HCC) Premature ventricular contractions Procedures Follow Up In Cardiology Bradly Tanner MD [address] [address] [place] [address], [place] [address] Phone: tel: fax: Referral IDStatusReasonKanorado DateExpiration DateVisits RequestedVisits [id number]/6/20234/[id number] Exam1 year follow up for palpitationsSpecialtyDiagnoses / ProceduresReferred By ContactReferred To ContactCardiology Diagnoses Palpitation Procedures Follow Up In Cardiology Bradly Tanner MD [address] [place] [address] 2, [place] [id number] Phone: tel: fax: Bradly Tanner MD [address] [place] [address] 2, [place] [phone] Phone: tel: fax: Referral IDStatusReasonStart DateExpiration DateVisits RequestedVisits [id number]/25/202410/25/202511 Care Teams (unrecognized sec tion and content) Team MemberRelationshipSpecialtyStart DateEnd Date Zeny Stanley MD [address] [place] [address] PCP - General06/01/19 Team Status: Active Member Role Status Dates Zeny Stanley MD Primary Care Provider Active Team Status: Inactive Member Role Status Dates Zeny Stanley MD Primary Care Provide r, Attending Provider Active Start: March 10, 2024 End: March 10, 2024Morosa isela Tanner MDReferring ProviderActiveStart: March 10, 2024 End: March 10, 2024Team MemberRelationshipSpecialtyStart DateEnd Date Zeny Stanley MD [address] [place] [address] PCP - General06/01/19 Team Status: Inactive Member Role Status Dates Zeny Stanley MD Primary Care Provider Active Start: February 01, 2025 End: February 01, 2025Docharo Stanley MDAttending ProviderActiveStart: February 01, 2025 End: February 01, 2025 Team Status: Inactive Member Role Status Dates Zeny Stanley MD Primary Care Provider Active Start: February 22, 2025 End: February 22, 2025Morosa isela Tanner MDAttending ProviderActiveStart: February 22, 2025 End: February 22, 2025Team MemberRelationshipSpecialtyStart DateEnd Date Zeny Stanley MD [address] [place] [address] PCP - General06/01/19 Goals (unrecognized section and [...] BE BASED ON THE PRIMARY CLINICAL RECORDS. [facility] [employer] [facility]. provides no warranty or guarantee of the accuracy or completeness of information in this document.
[2025-05-02 11:21] LABS: Hematocrit 43.4 % (36.0-48.0); Hemoglobin 14.3 g/dL (12.0-16.0); Immature Granulocytes Abs Auto 0.01 10^3/uL (0.00-0.03); Immature Granulocytes Pct Auto 0.2 % (0.0-0.5); Lymphocytes Absolute Auto 1.2 10^3/uL (1.2-3.8); Mean Corpuscular HGB Conc 32.9 g/dL (29.9-35.2); Mean Corpuscular Hemoglobin 30.0 pg (26.7-34.0); Mean Corpuscular Volume 91.0 fL (81.0-99.0); Platelet Count 244 10^3/uL (150-450); Red Blood Count 4.77 10^6/uL (4.20-5.40); White Blood Count 4.6 10^3/uL (4.0-11.0)
[2025-05-02 12:07] LABS: Alanine Aminotransferase 70 U/L (14-59); Albumin Globulin Ratio 1.1; Albumin Level 3.6 g/dL (3.4-5.0); Alkaline Phosphatase 63 U/L (46-116); Anion Gap 7.1; Aspartate Amino Transferase 43 U/L (15-37); Blood Urea Nitrogen 15.0 mg/dL (7.0-18.0); Calcium 9.1 mg/dL (8.5-10.1); Carbon Dioxide 33.0 mmol/L (21.0-32.0); Chloride 106 mmol/L (98-107); Estimated GFR (African America >60 (>=60 mL/min/1.73m^2); Estimated GFR (Non-African Ame >60 (>=60 mL/min/1.73m^2); Free T3 2.55 pg/mL (2.18-3.98); Globulin 3.2 g/dL; Glucose 64 mg/dL (74-106); Potassium 4.1 mmol/L (3.5-5.1); Sodium 142 mmol/L (136-145); Thyroid Stimulating Hormone 0.943 uIU/mL (0.358-3.740); Total Protein 6.8 g/dL (6.4-8.2)
== END 2025-05-02 10:49 | disposition home or self-care (01) ==
LOC: LAB 10:55
PROVIDERS: PCP Family Medicine; Visit Provider Family Medicine
DX: R53.83 Other fatigue (principal); I10 Essential (primary) hypertension; E03.9 Hypothyroidism, unspecified; Z12.11 Encounter for screening for malignant neoplasm of colon; E11.9 Type 2 diabetes mellitus without complications
CPT/HCPCS: 36415; 80053; 82306; 83036; 84436; 84443; 84481; 85025

== ENCOUNTER 2025-05-16 10:10 | Outpatient (OUT) | payer MEDICARE, OTHER, SELFPAY ==
--- OUTSIDE RECORDS SUMMARY | 2025-05-02 07:43 | XMS_ITS ---
Author Organization [facility] [place] Address [address] [place] [address] Care Team Providers Care Information Systems Manager Name Role Phone Jam Stanley Primary Care Provider REASON FOR VISIT lab results Encounters Encounter Location Date Provider Diagnosis [facility] [address] [place] [address] 05/02/2025 Jam Stanley Encounter for long-term current use of medication Z79.899 Assessments Encounter Date Diagnosis (ICD Code) Assessment Notes Treatment Notes Treatment Clinical Notes Section Notes 05/02/2025 Encounter for long-term current use of medication (ICD-10 - Z79.899) Plan Of Treatment Medication Medication Name Sig Start Date Stop Date Notes Cefdinir 300 MG 2 capsules Orally once a day Bactrim DS 800-160 MG1 tablet Orally bid03/18/2025Diclofenac Potassium 50 MG1 tablet with food or milk as needed Orally TID08/12/2024Pending Test Test Name Order Date CMP - Comprehensive Metabolic Panel 12/2024 Progress Notes * Ahsan CHAVEZOB:08/1949 (75 yo F)Acc No.[id number]:05/02/2025 Patient:?LOVELYVero MCCABEjorie :1950???Age:75 Y???Sex:FemalePhone:[phone] Address:[address] [place] [address] * Refills Stop Cefdinir Capsule, 300 MG, Orally, 2 capsules, once a day Stop Bactrim DS Tablet, 800-160 MG, Orally, 1 tablet, bid Stop Diclofenac Potassium Tablet, 50 MG, Orally, 1 tablet with food or milk as needed, TID Subjective: * Chief Complaints: * L ab results * Medical History: * Surgical History: * Hospitalization/Major Diagno stic Procedure: * Medications: Objective: * Vitals: * Physical Examination: ??? Assessment: * Assessment: 1.?Encounter for long-term current use of medication - Z79.899 (Primary)??? Plan: * Treatment: ?LAB: CMP - Comprehensive Metabolic Panel2.?Others? Stop Cefdinir Capsule, 300 MG, 2 capsules, Orally, once a day;?Stop Bactrim DS Tablet, 800-160MG, 1 tablet, Orally, bid;?Stop Diclofenac Potassium Tablet, 50 MG, 1 tablet with food or milkas needed, Orally, TID.?? * Procedure Codes: * true * Date:?Generated for Printing/Faxing/eTransmitting on:?05/16/2025 10:14 AM EST
--- OUTSIDE RECORDS SUMMARY | 2025-05-16 10:14 | XMS_ITS | Clinical Summary ---
Author Organization [facility] Address [address] [place] [address] Phone Care Team Providers Care Clinical Research Analyst Name Role Phone Familia Stanley MD Primary Care Provider + -[phone] Allergies No known active allergies Medications MedicationSigDispense [...] tablet (40 mg) by mouth once daily.Active metoprolol succinate XL (Toprol-XL) 50 mg 24 hr tablet Indications:Palpitation,Essential (primary) hypertensionTake 1 tablet (50 mg) by mouth 2 times a day. 180 tablet ctive spironolactone (Aldactone) 25 mg tablet Indications:Primary hypertensionTake 1 tablet (25 mg) by mouth once daily. 90 tablet ctive magnesium oxide (Mag-Ox) 400 mg (241.3 mg elemental) tablet Indications:Paroxysmal atrial tachycardia,Premature ventricular contractionsTake 2 tablets by mouth once daily. 180 tablet tive magnesium oxide (Mag-Ox) 400 mg (241.3 mg magnesium) tablet Indications:Paroxysmal atrial tachycardia,Premature ventricular contractionsTAKE 2 TABLETS BY MOUTH EVERY DAY 180 tablet Discontinued Active Problems ProblemNoted DateDiagnosed DateNever smoked jvvxivg6403/04/2025MI 32.0-32.9,adult 03/19/20247219Guggnkxxjajnoc43/30/9507Ataqbmntnejo41/30/9931Xfkakfslhvp39/30/2023 Paroxysmal atrial hdzmfhuqzed91/30/2023remature ventricular contractions 01/22/2023 Resolved Problems ProblemNoted DateDiagnosed DateResolved DateClass 1 [id number] Encounters DateTypeDepartmentCare BbzaOquvwkzamuf87/04/2025Refill at [facility] [address] [address] Robi Tanner MD Paroxysmal atrial tachycardia; Premature ventricular bhufdlgajjim67/10/2025 10:30 AM EDTOffice Visit [facility] [address] [place] [phone] Robi Tanner MD Premature ventricular contractions (Primary Dx); Palpitation; Paroxysmal atrial tachycardia; Primary hypertension; Hyperlipidemia, unspecified hyperlipidemia type; BMI 32.0-32.9,adult; Never smoked tobacco; Essential (primary) hypertension Discharge Disposition: Home03/04/20251066Behmpr69/30/2025Orders Only [facility] [address] [place] [address] Robi Tanner MD from Last 3 Months Immunizations ImmunizationAdministration DatesNext DueFlu vaccine (IIV4), preservative free *Check age/dose*04/08/2018Flu vaccine, quadrivalent, high-dose, preservative free, age 65y+ (FLUZONE)03/26/2022Flu vaccine, trivalent, preservative free, HIGH-DOSE, age 65y+ (Fluzone)03/09/2019Flu vaccine, trivalent, preservative free, age 6 months and greater (Fluarix/Fluzone/Flulaval)11/10/2015Influenza, Seasonal, Quadrivalent, Oamguswleb98/25/2021Influenza, Dbgfanncxmd69/01/2019 Influenza, injectable, qdytwdbytzjd29/07/2014Influenza, seasonal, injectable 03/19/2013Pfizer COVID-19 vaccine, bivalent, age [...] InformationValueDate RecordedSex Assigned at BirthNot on fileLegal HerAqvwqt20/26/2022 3:19 AM ESTGender Identity Not on fileSexual OrientationNot on file Last Filed Vital Signs Vital SignReadingTime TakenCommentsBlood Gzjmnlpt154/7403/04/2025 10:32 AM EDT Wgqhh855303/04/2025 10:32 AM EDTTemperature--Respiratory Rate--Oxygen Saturation-- Inhaled Oxygen Concentration--Fuovkg59.9 kg (191 lb 9.6 oz)03/04/2025 10:32 AM TTZLoaonj924.6 cm (5' 4 )03/04/2025 10:32 AM EDTBody Mass Index32.8903/04/2025 10:32 AM EDT Plan of Treatment DateTypeDepartmentCare Team (Latest Contact Info)Vfqeuxhvtko70/09/2026 10:30 AM EDTOffice Visit at [facility] [address] [facility] [address] [place] [phone] Robi Tanner MD [address] [facility] [address] [place] [address] Health MaintenanceDue DateLast DoneCommentsCT Ncmxectpbcap1950Colonoscopy 1950FIT1950Lipid Panel02/26/19501994Xtempoojjqmgv1950MMR Vaccines (1 of 1 - Standard series)1Diabetes Omyszsjga84/04/1968Hepatitis C Izueiyhjp53/04/1968DTaP/Tdap/Td Vaccines (1 - Tdap)02/27/1972COVID-19 Vaccine (2 - season)Influenza Vaccine (#1)51, 03/26/2023, 03/26/2022, Additional history existsRSV High Risk: (Elderly (60+) or Population) (1 - 1-dose 75+ series)2025Medicare Annual Wellness Visit (AWV)603/10/2024, 11/02/2018, 08/27/2016Bone Density Scan6010/10/2023, 07/12/2021, 08/25/2018, Additional history exists Colorectal Cancer Ppvsgdgvq26/31/2028FIT-DNA (Cologuard)8008/23/2024, 2Pneumococcal OdmklvzWsunfxeav02/27/2019, 08/13/2018, 05/26/2018, Additional history existsZoster MxitswqoVfikbnxeo33/12/2021, 04/11/2020Welcome to Medicare WjnvjZujvqcqswzzv75/06/2025, 11/02/2018, 08/27/2016HIB VaccinesAged OutNo longer eligible based [...] topic Procedures Procedure NamePriorityDate/TimeAssociated DiagnosisCommentsNON- HIE LIPID KKHNQBndsklh67/30/2025 10:13 AM EDT NON- HIE ALANINE VJSDEFKABHIKYLKKJmqqcpq26/30/2025 10:13 AM EDT NON-[facility] HIE ASPARTATE AMINO UTUNADIALKFYmijqis54/30/2025 10:13 AM EDT NON-[facility] HIE BASIC METABOLIC STBXYGduhbdh07/30/2025 10:13 AM EDT from Last 3 Months Results * [facility] Basic Metabolic Panel (02/22/2025 10:13 AM EDT)ComponentValueRef RangeTest MethodAnalysis TimePerformed AtPathologist SignatureNON-[facility] Zvymstf1165 - 100 mg/dLDetwiler Memorial Hospital CtrComment:Random Glucose Reference Range is dependent on time and content of last meal. Glucose of more than 200 mg/dL in a nonstressed, ambulatory subject supports the diagnosis of Diabetes Mellitus. ADA recommended reference rangeNON-[facility] Blood Urea Iglthsfk884 - 25 mg/dLDetwiler Memorial Hospital CtrHEART C[facility]E Creatinine0.75 0.60 - 1.20 mg/dLDetwiler Memorial Hospital CtrHE[facility] ESTIMATED GFR>60.0 [facility]tr[facility] Xdafoe538090 - 145 mmol/[facility] Potassium4.63.5 - 5.1 mmol/[facility]tr[facility] Tvgboxyw79000 - 107 mmol/[facility] Ctr [facility] Carbon Xrjjhhp09.421.0 - 31.0 mmol/[facility] Ctr [facility] Anion Gap9.26.0 - 15.0[facility] CtrNON-[facility] Calcium9.68.6 - 10.3 mg/dLDetwiler Memorial Hospital CtrSpecimen (Source) Anatomical Location / LateralityCollection Method / VolumeCollection Time Received TimeWW [facility] Plasma specimen or serum specimen or whole blood specimen 02/22/2025 10:13 AM EDT Narrative Authorizing ProviderResult TypeResult StatusMouroz COE BLOOD ORDERABLESFinal ResultPerforming OrganizationAddressCity/State/ZIP CodePhone Number [facility] [address] [place] [address], [facility] [place] [address] [place] [address] * [facility] Lipid Panel (02/22/2025 10:13 AM EDT)ComponentValueRef RangeTest MethodAnalysis TimePerformed AtPathologist SignatureNON-[facility] Yiflhogdlef395 140 - 200 mg/dLDetwiler Memorial Hospital CtrComment:Chol less than 200 mg/dl low risk Chol 201-239 mg/dl borderline risk Chol 240 mg/dl and greater high riskNONMIMBRES MEMORIAL [facility]ITALE HDL Bwcwmgpaehu4399 - 92 mg/dLDetwiler Memorial Hospital Ctr Comment:HDL CHOL ATP-III CLASSIFICATION Cardiovascular Risk HDL > or equal to 60 mg/dL LOW HDL < 40 mg/dL HIGHNON-[facility]ERE Triglyceride w/Sogsoa2257 - 149 mg/dLDetwiler Memorial Hospital CtrComment:TRIG ATP III CLASSIFICATION TRIG less than 150 mg/dL Normal TRIG 150-199 mg/dL Borderline high TRIG 200-500 mg/dL High TRIG greater than 500 mg/dL Very high Standard traceable to the Center for Disease Conrtrol and Prevention (CDC) test method.NON- HIE LDL Cholesterol,Rvejjcgltm018 - 100 mg/dLDetwiler Memorial Hospital CtrComment:LDL ATP III CLASSIFICATION LDL less than 100 mg/dL Optimal LDL 100-129 mg/dL Near or above optimal LDL 130-159 mg/dL Borderline high LDL 160-189 mg/dL High LDL greater than 189 mg/dL Very highNON-[facility] VLDL FPBYZXHVXCB18pa/dLDetwiler Memorial Hospital CtrNON-[facility] Chol/HDL Ratio2.7<5.0Detwiler [facility] CtrComment:PERFORMED BY:[facility] HEALTHNiranjanWED[place]FIELD, [place] [phone] MEDICAL DIRECTORNGOZI DONALD M.D.Specimen (Source)Anatomical Location / LateralityCollection Method / VolumeCollection TimeReceived TimeWW [facility] Plasma specimen or serum specimen or whole blood azjbmhas21/30/2025 10:13 AM EDT Narrative Authorizing ProviderResult TypeResult StatusRobi Tanner MDLAB BLOOD ORDERABLESFinal ResultPerforming OrganizationAddressCity/State/ZIP CodePhone Number [facility] [address] [place] [address], [facility] [address] [place] [address] * NON-[facility] HIE Aspartate Amino Transferase (02/22/2025 10:13 AM EDT)ComponentValue Ref RangeTest MethodAnalysis TimePerformed AtPathologist SignatureNON-[facility] HIE Aspartate Amino Tegwgctobly7393 - 39 U/[facility] CtrSpecimen (Source)Anatomical Location / LateralityCollection Method / VolumeCollection TimeReceived TimeWW [facility] Plasma specimen or serum specimen or whole blood cvdhxhee65/30/2025 10:13 AM EDT Narrative Authorizing ProviderResult TypeResult StatusRobi Tanner MDLAB BLOOD ORDERABLESFinal ResultPerforming OrganizationAddressCity/State/ZIP CodePhone Number [facility] [address] [place] [address], [facility] [address] [place] [address] * NON-[facility] HIE Alanine Aminotransferase (02/22/2025 10:13 AM EDT)ComponentValueRef RangeTest MethodAnalysis TimePerformed AtPathologist SignatureNON-[facility] HIE Alanine Frgoygzepqummabe700 - 52 U/[facility] CtrSpecimen (Source)Anatomical Location / LateralityCollection Method / VolumeCollection TimeReceived TimeWW [facility] Plasma specimen or serum specimen or whole blood efxskubi83/30/2025 10:13 AM EDT Narrative Authorizing ProviderResult TypeResult StatusModior Tanner MDLAB BLOOD ORDERABLESFinal ResultPerforming OrganizationAddressCity/State/ZIP CodePhone Number [facility] [address] [place] [address], [facility] [address] [place] [address] from Last [address] [place] [address] Care Teams Team MemberRelationshipSpecialtyStart Date Familia Stanley MD [address] [facility] [place] [address] PCP - General06/01/19
--- OUTSIDE RECORDS SUMMARY | 2025-05-16 10:14 | XMS_ITS | Clinical Summary ---
Author Organization [facility] Address [address] [place] [address] Care Team Providers Care Batch Attendant Name Role Phone Unavailable Primary Care Provider Unavailabl e Social History Tobacco UseTypesPacks/DayYears UsedDateSmoking Tobacco: Never Assessed CommentsUnknownSex and Gender InformationValueDate RecordedSex Assigned at Not on fileLegal OriMtdljg37/29/2022 10:20 PM EDTGender IdentityNot on file Sexual OrientationNot on file Last Filed Vital Signs Vital SignReadingTime TakenCommentsBlood Ahfwjrja707/8010 1:46 PM EDT Pulse--Temperature--Respiratory Rate--Oxygen Ocszkijydt96%03/16/2019 1:48 PM EDT Inhaled Oxygen Concentration--Znmspz68.6 kg (180 lb)03/16/2019 1:44 PM EDTHeight 165.1 cm (5' 5 )03/16/2019 1:42 PM EDTBody Mass Index29.9503/16/2019 1:42 PM EDT Plan of Treatment Not on file
--- OUTSIDE RECORDS SUMMARY | 2025-05-16 10:14 | XMS_ITS | Clinical Summary ---
Author Organization [facility] Address [address] [place] [place] [address] Care Team Providers Care Fruit Grower Name Role Phone Unavailable Primary Care Provider Unavailabl e Social History Tobacco UseTypesPacks/DayYears UsedDateSmoking Tobacco: Never Assessed CommentsUnknownSex and Gender InformationValueDate RecordedSex Assigned at Not on fileLegal YqwLfrgql58/15/2023 7:23 PM EDTGender IdentityNot on fileSexual OrientationNot on file Last Filed Vital Signs Vital SignReadingTime TakenCommentsBlood Lnbxjawc704/8202 12:00 PM EST Pulse--Temperature--Respiratory Rate--Oxygen Saturation--Inhaled Oxygen Concentration--Grkmjp36.6 kg (180 lb)11/07/2021 12:00 PM JSFPckgdd831.1 cm (5' 5 )11/07/2021 12:00 PM EDTBody Mass Index29.95011/07/2021 12:00 PM EDT Plan of Treatment Not on file Insurance * Guarantor: Kay Newton AAccount TypeRelation to PatientDate of PhoneBilling AddressPersonal/HcrjhkVtwv1950 [facility] [phone]
--- OUTSIDE RECORDS SUMMARY | 2025-05-16 10:14 | XMS_ITS | Clinical Summary ---
Author Organization [facility] Address [address] [place] [address], [address] [place] [address] Care Team Providers Care Respiratory Therapy Manager Name Role Phone Unavailable Primary Care Provider Unavailabl e Social History Tobacco UseTypesPacks/DayYears UsedDateSmoking Tobacco: Never Assessed CommentsUnknownSex and Gender InformationValueDate RecordedSex Assigned at Not on fileLegal JwzYvchzq57/10/2013 2:10 PM ESTGender IdentityNot on fileSexual OrientationNot on file Plan of Treatment Not on file
--- OUTSIDE RECORDS SUMMARY | 2025-05-16 10:14 | XMS_ITS | Patient Health Record ---
Author Organization [facility] in [place] Address [address] [place] [address] Care Team Providers Care Tube Fitter Name Role Phone Jam Sims Primary Care Provider Allergies No Known Allergies Results Component Value Reference Range Notes UA DIP NONAUTO WO MICRO (810 02) - IN OFFICE Reviewed date:03/18/2025 10:45:12 AM Interpretation: Performing Lab: Notes/Report: COLOR Straw ARDLXNXkerhcuRZQROILxFFMAUHTTUlZYFLQA4DMELQJUB GRAVITY1.010BLOOD+++PH6.5PROTEIN 100UROBILINOGENnNITRITEnLEUKOCYTE ESTERASE+++GLYCOHEMOGLOBIN A1C Reviewed date:05/02/2025 01:04:34 PM Interpretation: Performing Lab: Notes/Report: [place] ,Glycohemoglobin A1C5.34.5-6.2 % ADA RECOMMENDED LIMIT 4.0 - 6.0 ADA THERAPEUTIC TARGET < 7.0 ACTION SUGGESTED > 7.0 Estimated Average Pranlgt231Zwekctzbyr Lab:see noteML - [facility] LB Urine Culture - [facility] Reviewed date:02/03/2025 07:50:06 PM Interpretation: Performing Lab: Notes/Report: [facility] ,Urine Culture - [facility]MCSee Below For Report Urine Culture - [facility] 75,000 colonies/ml mixed Urine Culture - FRMCbacterial skin contaminants Urine Culture - [facility] 75,000 colonies/ml mixed Urine Culture - [facility]2 Days Urine Culture - [facility] 75,000 colonies/ml mixed Urine Culture - [facility] Urine Culture - [facility] 75,000 colonies/ml mixed Urine Culture - [facility]CTesting [facility] at [facility] Urine Culture - [facility] 75,000 colonies/ml mixed Urine Culture - [id number] [place] [address] Urine Culture - [facility] 75,000 colonies/ml mixed Performing Lab:see noteML - [facility] LBUA RANDOM W or MICROSCOPIC Reviewed date:03/18/2025 03:04:00 PM Interpretation: Performing Lab: Notes/Report: [facility] ,Color UrineLT. YELLOWYELLOWClarity UrineCLEARCLEARSpecific [place] Urine<=1.005 1.005-1.025pH Urine6.55.0-9.0Protein UrineNEGATIVENEG/TRACE mg/dLGlucose Urine UANEGATIVENEGATIVE mg/dLBilirubin UrineNEGATIVENEGATIVEKetones UrineNEGATIVE NEGATIVE mg/dLBlood UrineLARGENEGATIVENitrite UrineNEGATIVENEGATIVEUrobilinogen Urine0.20.2-1.0 EU/dLLeukocyte Esterase UrineMODERATENEGATIVEWBC Yhuoh23-91MHAL SEEN #/HPFRBC Ueayr4-212-2 #/HPFBacteria UrineTRACENONE SEEN #/HPFMucus Urine NONE SEENNONE SEENSquamous Epithelial Cell UrineRARENONE/RARE #/LPFCrystals Seen?None SeenNone Seen #/HPFCast Seen?NONE SEENNONE SEEN #/LPFUrine Culture IndicatedALREADY ORDEREDPerforming Lab:see noteML - [facility] LB Urine Culture - [facility] Reviewed date:03/21/2025 07:05:36 PM Interpretation: Performing Lab: Notes/Report: [facility] ,[facility] For Report Urine Culture - [facility] No Growth 2 Days Urine Culture - [facility] Urine Culture - [facility] No Growth 2 Days Urine Culture - [facility] Urine Culture - [facility] No Growth 2 Days Urine Culture - [id number] [place] [address] Urine Culture - [facility] No Growth 2 Days Performing Lab:see noteML - [facility] LBCBC AUTO DIFF Reviewed date:05/02/2025 12:46:52 PM Interpretation: Performing Lab: Notes/Report: [facility] ,White Blood Count4.64.0-11.0 10 3/uLRed Blood Count4.774.20-5.40 10 6/uL Onnzzscfbi17.312.0-16.0 g/uHMwxoefekcj58.436.0-48.0 %Mean Corpuscular Wwusrf29.0 81.0-99.0 fLMean Corpuscular Qsjcfxynbo61.026.7-34.0 pgMean Corpuscular HGB Conc 32.929.9-35.2 g/dLRed Cell Distribution Width12.911.0-15.0 %Platelet Jxdgx874 150-450 10 3/uLMean Platelet Volume9.69.5-13.5 fLNeutrophils Percent Auto58.4 43.0-75.0 %Lymphocytes Percent Auto26.620.5-60.0 %Monocytes Percent Auto11.11.7- 12.0 %Eosinophils Percent Auto3.30.9-7.0 %Basophils Percent Auto0.40.2-2.0 % Immature Granulocytes Pct Auto0.20.0-0.5 %Neutrophils Absolute Auto2.71.4-6.5 10 3/uLLymphocytes Absolute Auto1.21.2-3.8 10 3/uLMonocytes Absolute Auto0.50.3-0.8 10 3/uLEosinophils Absolute Auto0.20.0-0.7 10 3/uLBasophils Absolute Auto0.00.0- 0.1 10 3/uLImmature Granulocytes Abs Auto0.010.00-0.03 10 3/uLPerforming Lab:see noteML - [facility] LBFREE T3 Reviewed date:05/02/2025 12:46:52 PM Interpretation: Performing Lab: Notes/Report: [facility] ,Free T32.552.18-3.98 pg/mLPerforming Lab:see noteML - [place] LB PROF 14(COMP METB) Reviewed date:05/02/2025 12:46:52 PM Interpretation: Performing Lab: Notes/Report: [facility] ,Shefku572244-598 mmol/LPotassium4.13.5-5.1 mmol/JZkwzonfb97830-027 mmol/LCarbon Ihdfmpv10.021.0-32.0 mmol/LAnion Gap7.2Ciyhjzd1703-112 mg/dLBlood Urea Nitrogen 15.07.0-18.0 mg/dLCreatinine0.720.55-1.02 mg/dLEstimated GFR ( Micaela>60 >=60 mL/min/1.73m 2Estimated GFR (Non- Romy>60>=60 mL/min/1.73m 2BUN Creatinine Ratio20.8Osoeaca2.18.5-10.1 mg/dLBilirubin Total0.40.2-1.0 mg/dL Aspartate Amino Gumfrtlbrzc9915-16 U/LAlanine Epouckokrnbbnpim2292-64 U/L Alkaline Ileakacgsvh3287-463 U/LTotal Protein6.86.4-8.2 g/dLAlbumin Level3.63.4- 5.0 g/dLGlobulin3.2Albumin Globulin Ratio1.1Performing Lab:see noteML - [place] LBT4 Reviewed date:05/02/2025 12:46:52 PM Interpretation: Performing Lab: Notes/Report: [place] ,T4 Thyroxine8.304.80-13.90 ug/dLPerforming Lab:see noteML - [place] LBTSH Reviewed date:05/02/2025 12:46:52 PM Interpretation: Performing Lab: Notes/Report: [place] ,Thyroid Stimulating Hormone0.9430.358-3.740 uIU/mLPerforming Lab:see noteML - [place] LBUS renal bladder Reviewed date:03/29/2025 02:11:50 PM Interpretation: Performing Lab: Notes/Report: Source Facility: [facility] [place] [address] Ultrasound Report Signed Patient: HECTOR NEWTON MR#: [id number] : 1950 Acct:[id number] Age/Sex: 75 / F ADM Date: 03/29/25 Loc: US Attending Dr: Familia Sims M.D. Ordering Physician: Familia Sims M.D. Date of Service: 03/29/25 Procedure(s): US renal bladder Accession Number(s): [id number] cc: Familia Sims M.D. The [address] [address] Patient Name: HECTOR NEWTON MRN: [id number] date: 1950 Sex: F Assigned Patient Location: US Current Patient Location: US Accession/Order Number: [id number] Exam Date: 03/29/2025 08:00 Report Date: 03/29/2025 09:56 At the request of: FAMILIA SIMS MD Procedure: US renal bladder BILATERAL RENAL AND BLADDER ULTRASOUND CLINICAL HISTORY: Urinary Tract Infection COMPARISON: None Estimation of renal size is approximately 9.2 cm on the right and 10.7 cm on the left. No shadowing calculi or hydronephrosis are identified. No renal mass lesions were imaged. There is no perinephric fluid. The urinary bladder is partially distended with a volume of 103 mL. The urinary bladder wall is borderline thickened. No intraluminal abnormalities are seen. Bilateral ureteral jets are visualized. The post void bladder residual is 3 mL.. US/US renal bladder IMPRESSION: NO OBSTRUCTIVE UROPATHY. BORDERLINE THICKENED URINARY BLADDER WALL. Impression dictated by: Hilary Gomez M.D. 03/29/2025 9:56 AM Dictation Location: [place] [address] Electronically authenticated by: [id number] Y Date: 03/29/2025 09:56 Dictated By: Hilary Gomez M.D. Signed By: 03/29/2558 DD/ 5 TD/TT: Saw Straightener:MUNDO RANDOM W or MICROSCOPIC Reviewed date:02/01/2025 02:38:03 PM Interpretation: Performing Lab: Notes/Report: [facility] ,Color UrineYELLOWYELLOWClarity UrineCLEARCLEARSpecific [place] Urine>=1.030 1.005-1.025pH Urine5.05.0-9.0Protein UrineTRACENEG/TRACE mg/dLGlucose Urine UA NEGATIVENEGATIVE mg/dLBilirubin UrineSMALLNEGATIVEKetones Utezb14SEODZLJG mg/dL Blood UrineNEGATIVENEGATIVENitrite UrineNEGATIVENEGATIVEUrobilinogen Urine1.0 0.2-1.0 EU/dLLeukocyte Esterase UrineTRACENEGATIVEWBC Urine2-5NONE SEEN #/HPFRBC Urine0-20-2 #/HPFBacteria UrineTRACENONE SEEN #/HPFMucus UrineNONE SEENNONE SEEN Squamous Epithelial Cell UrineFEWNONE/RARE #/LPFCrystals Seen?SeenNone Seen #/HPFCalcium Oxalate Crystals UrineMODERATECast Seen?SEENNONE SEEN #/LPFHyaline Casts UrineFEWUrine Culture IndicatedALREADY ORDEREDPerforming Lab:see noteML - [place] LBUA DIP NONAUTO WO MICRO (20816) - IN OFFICE Reviewed date:01/18/2025 10:41:48 AM Interpretation: Performing Lab: Notes/Report: COLORyellowCLARITYcloudyGLUCOSEnegBILIRUBINnegKETONEnegSPECIFIC GRAVITY1.015 NWWNJrdjoqPE0RYIBHVKuakljEXVTFEJOQZJBlrfQJHAOYOygdBNVUUFLNY ESTERASElargeVITAMIN D 25 [place] Reviewed date:05/02/2025 07:33:40 PM Interpretation: Performing Lab: Notes/Report: [facility] ,Vitamin D43.7 <20 ng/mL Vit D deficient 20-<30 ng/mL Vit D insufficient 30-100 ng/mL Vit D sufficient >100 ng/mL Potential Toxicity Performing Lab:see noteML - [place] LB Reason For Referral Reason patient would like t o see dr douglass Diagnosis 1 UTI (urinary tract i nfection) (N39.0) Referral Organization [facility] Medicine Referring Provider First Name Jam Referring Provider Last Name Lizeth Referring Provider Speciality [facility] joan Referred Provider Franc Casillas Referred Provider Specialty Urology Referral Priority Routine Medications Medication SIG (Take, Route, Frequency, Duration) Notes Start Date End Date Status ALPRAZolam 0.25 MG 1 tablet Orally TID PRN; Dura tion: 30 days 5ActiveDiclofenac Sodium 75 MG1 tablet as needed Orally Twice a day; Duration: ctiveLisinopril 40 MG1 tablet Orally Once a day; Duration: 90 daysActiveAmitriptyline HCl 75 mgTAKE 1 TABLET DAILYActive Spironolactone 25 MG1 tablet Orally QD; Duration: 30 daysActiveMetoprolol Tartrate 50 MGTAKE 1 TABLET BY MOUTH TWICE A DAY WITH FOOD; Duration: 90Active Simvastatin 20 mgTAKE 1 TABLET DAILY IN THE EVENING; Duration: 90 daysActive Alendronate Sodium 70 MGTAKE 1 TABLET BY MOUTH ONE TIME PER WEEK; Duration: 84 Active Immunizations Vaccine Route Administration Date Status Comme nts Flu, Fluad (76759) 65 yrs an d older, single-dose syringe (2467-2417) Unknown 03/25/2024 Administered Pneumococcal (Pneumovax 23)Ptqlpyg1308/13/2018Administered Social History Tobacco Use: Social History Observation Description Date Details (start date - stop date) Never Smoker NA - NA Tobacco Use/Smoking Question Answer Notes Patient is a nonsmoker Alcohol Screen (Audit-C) Question Answer Notes Did you have a drink containing alcohol in the p ast year? No Qqqzyr2WaxrfuvtgxveeqQrdwgwykMPLIJ-T (Standard) Question Answer Notes Did you have [...] in the past year?Monthly or less (1 point)Qqowow2OjgstqdjkomallFxocbqcb Problems Problem Type SNOMED Code ICD Code Onset Dates Problem Status W/U Status Risk Notes Problem Essential hypertension (90554940 ) Essential (primary) hypertension (I10) ActiveconfirmedProblemAcute bronchitis (88934652)Acute bronchitis due to other specified organisms (J20.8)ActiveconfirmedProblemOsteoarthritis of knee (570529114)Unilateral primary osteoarthritis, left knee (M17.12)Activeconfirmed ProblemContracture of joint of left ankle (disorder) (828374486669102) Contracture, left ankle (M24.572)ActiveconfirmedProblemPlantar fascial fibromatosis (01609887)Plantar fascial fibromatosis (M72.2)Activeconfirmed ProblemMetatarsalgia of right foot (818360227212538)Metatarsalgia, right foot (M77.41)ActiveconfirmedProblemPain in right foot (412207455682143)Pain in right foot (M79.671)ActiveconfirmedProblemPain in left foot (515794149250184)Pain in left foot (M79.672)ActiveconfirmedProblemStress fracture of right foot (disorder) (40778010541472560)Stress fracture, right foot, subsequent encounter for fracture with routine healing (M84.374D)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)Stress fracture, left foot, subsequent encounter for fracture with nonunion (M84.375K)ActiveconfirmedProblemContusion of right foot (31391792720989872)Contusion of right foot, subsequent encounter (S90.31XD) ActiveconfirmedProblemFatigue (36270522)Fatigue (R53.83)ActiveconfirmedProblem Hypothyroid (08486378)Hypothyroid (E03.9)ActiveconfirmedProblemInsomnia (529976951)Insomnia (G47.00)ActiveconfirmedProblemKnee pain (3721524043)Knee pain (M25.569)ActiveconfirmedProblemOsteoarthritis of knee (983119181)Knee osteoarthritis (M17.9)ActiveconfirmedProblemArthralgia of the ankle and/or foot (979817568)Right ankle pain (M25.571)ActiveconfirmedProblemHallux valgus of right foot (2366744082)Hallux valgus of right foot (M20.11)Activeconfirmed ProblemAcquired hammer toe of right foot (9416127343037315)Hammer toe of right foot (M20.41)ActiveconfirmedProblemVenous varices (019925978)Complicated varicose veins (I83.899)ActiveconfirmedProblemPure hypercholesterolemia (020295371)High blood cholesterol (E78.00)ActiveconfirmedProblemAge-related osteoporosis (427828588)Osteoporosis, unspecified osteoporosis type, unspecified pathological fracture presence (M81.0)ActiveconfirmedProblemType II diabetes mellitus without complication (861547661)Diabetes (E11.9)ActiveconfirmedProblem Localized, primary osteoarthritis of the ankle and/or foot (605116661)Arthritis, midfoot (M19.079)Activeconfirmed Vital Signs Blood pressure diastolic 92 mm Hg 11/15/2024 Ooglta26 in11/15/2024lood pressure mm Hg11/15/20241817Voavuk744.2 lbs 11/15/2024BMI32.65 kg/m211/15/2024 Encounters Encounter Location Date Provider Diagnosis [facility] [address] [place] [address] 11/15/2024 Jam Hoy Essential (primary) hypertension I10 and Insomnia G47.00 [facility] [address] [place] [address] 07/14/2024 Jam Hoy Left knee pain M25.5 62 and Knee osteoarthritis M17.9 [facility] [address] [place] [address] 01/18/2025 Jam Hoy Dysuria R30.0 [facility] [address] [place] [address] 03/18/2025 Jam Hoy Burning with urinati on R30.0 and Urinary frequency R35.0 [facility] [address] [place] [address] 07/29/2024 Jam Hoy Encounter for Medica re annual wellness exam Z00.00 [facility] [address] [facility] [place] [address] 07/21/2024 Jam Hoy Unilateral primary osteoarthritis, left knee M17.12 [facility] [address] [place] [address] 05/31/2024 Jam Hoy Essential (primary) hypertension I10 [facility] [address] [place] [address] 06/01/2024 Jam Hoy Essential (primary) hypertension I10 [facility] [address] [facility] [place] [address] 07/20/2024 Jam Hoy [facility] [place] [place] [address] 08/12/2024[facility] [place] [address]/03/2025Doug [facility] [facility] [place] [address]/Doug HoyEssential (primary) hypertension I10 [place] [address] [facility] [place] [address] 01/18/2025Doug HoyUTI (urinary tract infection) N39.0[facility] [facility] [place] [address]/01/2025Doug [facility] [facility] [place] [address]/ Jam HoyUTI (urinary tract infection) N39.0[facility] [facility] [place] [address]/Doug [place] [address] [place] [address]/08/2024Doug HoyUTI (urinary tract infection) N39.0[facility] [facility] [place] [address]/Doug HoyEssential (primary) hypertension I10 [place] [address] [facility] [place] [address] 04/26/2025Doug [place] [address] [place] [address]/09/2024Doug HoyFatigue R53.83 ; Essential (primary) hypertension I10 ; Diabetes E11.9 ; Screening for colon bxtuwzN54.11 and Hypothyroid E03.9 [place] [address] [place] [address] 05/02/2025Doug HoyEncounter for long-term current use of medication Z79.899 Assessments Encounter Date Diagnosis (ICD Code) Assessment Notes Treatment Notes Treatment Clinical Notes Section Notes 07/29/2024 Encounter for Medicare annual we llness exam (ICD-10 - Z00.00) 07/14/2024Left knee pain (ICD-10 - M25.562)07/14/2024Knee osteoarthritis (ICD-10 - M17.9)07/21/2024Unilateral primary osteoarthritis, left knee (ICD-10 - M17.12) 11/15/2024Essential (primary) hypertension (ICD-10 - I10)didnt take med today 11/15/2024Insomnia (ICD-10 - G47.00)prn meds aand the wamhowamuodqih23/26/2025 Dysuria (ICD-10 - R30.0)03/18/2025urning with urination (ICD-10 - R30.0) 03/18/2025Urinary frequency (ICD-10 - R35.0)05/31/2024Essential (primary) hypertension (ICD-10 - I10)06/01/2024Essential (primary) hypertension (ICD-10 - I10)11/19/2024Essential (primary) hypertension (ICD-10 - I10)01/18/2025UTI (urinary tract infection) (ICD-10 - N39.0)03/18/2025UTI (urinary tract infection) (ICD-10 - N39.0)03/29/2025UTI (urinary tract infection) (ICD-10 - N39.0)04/12/2025Essential (primary) hypertension (ICD-10 - I10)04/29/2025Fatigue (ICD-10 - R53.83)04/29/2025Essential (primary) hypertension (ICD-10 - I10) 05/02/2025Encounter for long-term current use of medication (ICD-10 - Z79.899) 04/29/2025Diabetes (ICD-10 - E11.9)04/29/2025Screening for colon cancer (ICD-10 - Z12.11)04/29/2025Hypothyroid (ICD-10 - E03.9) Plan Of Treatment Pending Test Test Name Order Date CMP (COMPLETE METABOLIC PANEL) UA (URINALYSIS, COMPLETE) 01/18/2025 UA (URINALYSIS, COMPLETE) 03/18/2025 XR Thoracic Spine AP and Lateral (dorsal ) 10/28/2022 Urine Culture 01/18/2025 Urine Culture 03/18/2025 Cologuard 03/10/2024 COMPREHENSIVE METABOLIC PROFILE WITH GFR 04/29/2025 OCCULT BLOOD, FECAL, IMMUNOASSAY 025 CMP - Comprehensive Metabolic Panel 12/2024 CBC W/AUTO DIFF 04/29/2025 CBC W/AUTO DIFF 02/25/2024 STOOL OCCULT BLOOD 02/25/2024 US Renal and Bladder 03/18/2025 GLYCOHEMOGLOBIN A1C 11/29/2022 GLYCOHEMOGLOBIN A1C 02/25/2024 LIPID PROFILE 02/25/2024 URINE MICROSCOPIC ONLY 01/18/2025 URINE MICROSCOPIC ONLY 03/18/2025 THYROID PANEL (T4/TSH/FREE T3) 3 THYROID PANEL (T4/TSH/FREE T3) 4 THYROID PANEL (T4/TSH/FREE T3) 5 Vitamin D 04/29/2025 Insurance Providers Payer Name Payer Address Payer Phone Subscriber Number Group Number Insured Name Patient Relationship to Insured Coverage Start Date Coverage End Date [place] [address] [place] [address] [id number] [employer], MartomasrieSelf - patient is the [id number] [address] [place], [place] [id number] Stockmaster, MartomasrieSelf - patient is the [id number] 2024 Medications Administered Medication Instructions Date of Administration Dosage Notes Lidocaine HCl mLTriamcinolone 40 mg/ml580 mg Medical (General) History Medical History History [...] blood cholesterol E78.00 Surgical History Surgery Date(Month/Year) Cataract Extractions Bilateral 2009 Vein Ligation and Stripping Bilateal Low er Extremities Total HysterectomyHospitalization History Reason Date(Month/Year) Just for surgery
--- OUTSIDE RECORDS SUMMARY | 2025-05-16 10:14 | XMS_ITS | Clinical Summary ---
Author Organization [facility] Address [address] [place] [address] Care Team Providers Care Blending Tank Tender Helper Name Role Phone Familia Stanley MD Primary Care Provider +[phone] Camilo Lord MD Unavailable [phone] Allergies No known active allergies Medications MedicationSigDispense [...] number is lower riskNot on file05/03/2020Data from: https://www.[email or web address].medicine.[email or web address].edu/. Last address used for calculationNot on file05/03/2020CommentsUnknownSex and Gender InformationValueDate RecordedSex Assigned at BirthNot on fileLegal SexFemale 05/03/2013 2:25 PM ESTGender IdentityNot on fileSexual OrientationNot on file Last Filed Vital Signs Vital SignReadingTime TakenCommentsBlood Cdduvuxd457/8102/27/2018 10:35 AM EDT Jgfmg400102/27/2018 10:35 AM OTTKnqnvzgrdza71.2 ??C (97.1 ??F)10/10/2015 11:01 AM EDTRespiratory Teyt7595 10:35 AM EDTOxygen Mryyyrczyu98%02/27/2018 10:35 AM EDTInhaled Oxygen Concentration--Ptrfqj06.7 kg (178 lb)02/27/2018 10:35 AM JJUCtjzms169.1 cm (5' 5 )02/27/2018 10:35 AM EDTBody Mass Index29.6202/27/2018 10:35 AM EDT Plan of Treatment Health MaintenanceDue DateLast DoneCommentsAnxiety Grzjfncup13/04/1968Depression Zbstixher74/04/1968Hepatitis C Zhzueenub09/04/1968DTaP,Tdap,Td Vaccine (1 - Tdap)1969CT Uerbsqkfmkvl91/04/1995Cologuard (FIT-DNA)1995Colonoscopy 1995Colorectal Cancer Tymqknwjm69/04/1995Diabetes Uuxnergds39/04/1995Fecal Occult Blood1995Lipid Fmyqlbahk25/04/7976Mipjjraizeuqp97/04/1995 Pneumococcal Vaccine: 50+ (1 of 1 - PCV)02/27/2000Shingrix Vaccine (1 of 2) 02/27/2000Bone Density Khczalfdy97/04/2015dvance Directive Ulcagqkvhe38/01/2025 Covid-19 Vaccine (1 - 2024- season)2025Influenza Vaccine (#1)2025 RSV Vaccine (1 - 1-dose 75+ series)2025 Insurance Care Teams Team MemberRelationshipSpecialtyStart DateEnd Familia Stanley MD PCP - GeneralFamily Hygidimu98/9/13 Camilo Lord MD [address] [phone] Primary Staff PhysicianCardiology08/11/18
[2025-05-16 11:16] LABS: Albumin Globulin Ratio 1.1; Albumin Level 3.4 g/dL (3.4-5.0); Alkaline Phosphatase 67 U/L (46-116); Anion Gap 11.4; Aspartate Amino Transferase 28 U/L (15-37); Blood Urea Nitrogen 20.0 mg/dL (7.0-18.0); Calcium 9.0 mg/dL (8.5-10.1); Carbon Dioxide 31.0 mmol/L (21.0-32.0); Chloride 108 mmol/L (98-107); Estimated GFR (African America >60 (>=60 mL/min/1.73m^2); Estimated GFR (Non-African Ame >60 (>=60 mL/min/1.73m^2); Globulin 3.1 g/dL; Glucose 68 mg/dL (74-106); Potassium 4.4 mmol/L (3.5-5.1); Sodium 146 mmol/L (136-145); Total Protein 6.5 g/dL (6.4-8.2)
[2025-05-16 11:28] LABS: Alanine Aminotransferase 61 U/L (14-59)
== END 2025-05-16 10:11 | disposition home or self-care (01) ==
LOC: LAB 10:12
PROVIDERS: PCP Family Medicine; Visit Provider Family Medicine
DX: Z79.899 Other long term (current) drug therapy (principal)
CPT/HCPCS: 36415; 80053